=== PATIENT | male | born 1985 | race Caucasian/White ===

== ENCOUNTER 2016-03-09 15:58 | Emergency (ER) | payer MEDICAID, OTHER ==
[~2016-03-09] VITALS: Ht 195.6 cm; Wt 110.7 kg
[~2016-03-09 15:58] MED LIST: GLYB1.257 PO; METF-312; RISP3TAB24; SERT20CO PO
[2016-03-09] MEDS ORDERED: SODIUM CHLORIDE 0.9% 1,000 ML IV ONE (16:30)
[2016-03-09 16:53] LABS: Basophils # (auto) 0 uL; Basophils % (auto) 0.6 % (0.0-2.0); Eosinophils # (auto) 0.1 uL; Eosinophils % (auto) 2.4 % (0.0-7.0); Hematocrit 43.2 % (41.0-53.0); Hemoglobin 14.1 g/dL (13.5-17.5); Lymphocytes % (auto) 33.8 % (10.0-50.0); Mean Corpuscular Hemoglobin 28.9 pg (28.0-32.0); Mean Corpuscular Hgb Conc. 32.7 g/dL (32.0-36.0); Mean Corpuscular Volume 88.3 fL (80.0-100.0); Mean Platelet Volume 8.1 fL (7.4-10.4); Monocytes # (auto) 0.5 uL; Monocytes % (auto) 9.1 % (0.0-12.0); Neutrophils # (auto) 3.2 uL; Neutrophils % (auto) 54.1 % (37.0-80.0); Platelet Count (auto) 245 10^3/uL (140-450); Red Cell Distribution Width 12.9 % (11.6-16.0); White Blood Cell 5.9 10^3/uL (4.4-10.8)
[2016-03-09 17:00] VITALS: BP 123/92
[2016-03-09 17:15] LABS: Albumin 3.4 g/dL (3.4-5.0); Anion Gap 11 (5-15); Aspartate Aminotransferase 8 U/L (15-37); BUN/Creatinine Ratio 17.6; Blood Urea Nitrogen 16 mg/dL (7-18); Carbon Dioxide 25 mmol/L (21-32); Chloride 101 mmol/L (98-107); GFR African American 125 mL/min; GFR Non-African American 103 mL/min; Glucose 284 mg/dL (74-106); Magnesium 1.8 mg/dL (1.6-2.6); Potassium 4.1 mmol/L (3.5-5.1); Sodium 137 mmol/L (136-145)
[2016-03-09 17:18] LABS: Alkaline Phosphatase 65 U/L (45-117); Bilirubin, Total 0.4 mg/dL (0.2-1.0); Total Protein 6.6 g/dL (6.4-8.2)
== END 2016-03-09 17:57 | disposition home or self-care (01) ==
LOC: EDBD 15:58 → ER 16:03
DX: E11.65 Type 2 diabetes mellitus with hyperglycemia (principal); F12.10 Cannabis abuse, uncomplicated; Z79.899 Other long term (current) drug therapy
CPT/HCPCS: 36415; 80053; 80320; 82962; 83735; 85025; 93005; 94761; 96360; 99285; J7030

== ENCOUNTER 2016-04-12 12:23 | Emergency (ER) | payer MEDICAID ==
[~2016-04-12] VITALS: Ht 193 cm; Wt 105.2 kg
[2016-04-12 12:37] VITALS: BP 125/90
== END 2016-04-12 15:07 | disposition left against medical advice (07) ==
LOC: EDBD 12:23 → ER 12:30
DX: R53.1 Weakness (principal); Z53.21 Procedure and treatment not carried out due to patient leaving prior to being seen by health care provider

== ENCOUNTER 2016-10-13 22:15 | Emergency (ER) | payer MEDICAID ==
[~2016-10-13] VITALS: Ht 195.6 cm; Wt 104.3 kg
[~2016-10-13 22:15] MED LIST changes: -METF-312; +METF-370
[2016-10-13 22:55] LABS: Basophils # (auto) 0.1 uL; Basophils % (auto) 1.6 % (0.0-2.0); CONDITION Y; Eosinophils # (auto) 0.3 uL; Eosinophils % (auto) 3.6 % (0.0-7.0); Hematocrit 45.8 % (41.0-53.0); Hemoglobin 15.9 g/dL (13.5-17.5); Lymphocytes % (auto) 40.3 % (10.0-50.0); Mean Corpuscular Hemoglobin 30.8 pg (28.0-32.0); Mean Corpuscular Hgb Conc. 34.7 g/dL (32.0-36.0); Mean Corpuscular Volume 88.8 fL (80.0-100.0); Mean Platelet Volume 8.5 fL (7.4-10.4); Monocytes # (auto) 0.7 uL; Monocytes % (auto) 9.6 % (0.0-12.0); Neutrophils # (auto) 3.3 uL; Neutrophils % (auto) 44.9 % (37.0-80.0); Platelet Count (auto) 239 10^3/uL (140-450); Red Cell Distribution Width 12.5 % (11.6-16.0); White Blood Cell 7.4 10^3/uL (4.4-10.8)
[2016-10-13 23:07] LABS: Urine Bilirubin Negative (Negative); Urine Blood Negative /uL (Negative); Urine Glucose 4+ mg/dL (Normal); Urine Ketone Negative (Negative); Urine Nitrite Negative (Negative); Urine RBC <1 /hpf (0 - 3); Urine Urobilinogen Normal (Negative)
[2016-10-13 23:08] LABS: Urine Color Straw (Yellow)
[2016-10-13 23:13] LABS: Albumin 3.6 g/dL (3.4-5.0); BUN/Creatinine Ratio 13.4; Bilirubin, Total 0.2 mg/dL (0.2-1.0); Calcium 9.3 mg/dL (8.5-10.1); Magnesium 2.2 mg/dL (1.6-2.6); Potassium 4.6 mmol/L (3.5-5.1); Total Protein 8.3 g/dL (6.4-8.2)
[2016-10-14] MEDS ORDERED: InsuLIN REG 1unit/0.01ml Soln (100units/ml) IV ONE ×2 (01:00→08:00)
[2016-10-14] MEDS ORDERED: SODIUM CHLORIDE 0.9% 2,000 ML IV ONE (01:00)
[2016-10-14 01:34] LABS: Allen Test Modified; Base Excess 0.4 mmol/L (-2.0-2.0); Blood 02Sat 94.4 % (96-100); Blood COHb 0.8 % (0.5-1.5); Blood MetHb 0.2 % (0.0-1.5); HCO3 25.8 mmol/L (22-26.0); HHb 5.5 % (0.0-5.0); MODE ROOM AIR; O2Hb 93.5 % (94.0-97.0); PCO2 44.1 mmHg (35.0-45.0); PCO2(T) 44.1 mmHg (35.0-45.0); PO2 72.8 mmHg (80.0-100.0); PO2(T) 72.8 mmHg (80.0-100.0); Sample Type Arterial; pH 7.385 (7.350-7.450)
[2016-10-14 06:35] VITALS: BP 136/82
[2016-10-14] MEDS ORDERED: SODIUM CHLORIDE 0.9% 1,000 ML IV ONE (07:55)
== END 2016-10-14 08:31 | disposition home or self-care (01) ==
LOC: ER 22:15
DX: E11.65 Type 2 diabetes mellitus with hyperglycemia (principal); Z79.4 Long term (current) use of insulin
CPT/HCPCS: 36415; 36600; 80053; 81001; 82010; 82805; 82962; 83605; 83735; 85025; 96361; 96374; 96376; 99284; J1815; J7030

== ENCOUNTER 2016-12-23 10:46 | Emergency (ER) | payer MEDICAID ==
[~2016-12-23] VITALS: Ht 198.1 cm; Wt 99.8 kg
[2016-12-23 11:37] LABS: Basophils # (auto) 0.1 uL; Basophils % (auto) 1.2 % (0.0-2.0); Eosinophils # (auto) 0.2 uL; Eosinophils % (auto) 2.3 % (0.0-7.0); Hematocrit 45.5 % (41.0-53.0); Hemoglobin 15.8 g/dL (13.5-17.5); Mean Corpuscular Hemoglobin 30.7 pg (28.0-32.0); Mean Corpuscular Hgb Conc. 34.8 g/dL (32.0-36.0); Mean Corpuscular Volume 88.2 fL (80.0-100.0); Mean Platelet Volume 7.8 fL (6.9-10.8); Monocytes # (auto) 0.9 uL; Monocytes % (auto) 10.7 % (0.0-12.0); Neutrophils # (auto) 4.9 uL; Neutrophils % (auto) 60.8 % (37.0-80.0); Nucleated Red Blood Cells % 0.1 %; Platelet Count (auto) 229 10^3/uL (140-450); Red Cell Distribution Width 12.5 % (11.8-14.3)
[2016-12-23 11:58] LABS: Albumin 3.6 g/dL (3.4-5.0); Alkaline Phosphatase 84 U/L (45-117); Anion Gap 11 (5-15); Aspartate Aminotransferase 11 U/L (15-37); BUN/Creatinine Ratio 12.8; Bilirubin, Total 0.4 mg/dL (0.2-1.0); Blood Urea Nitrogen 12 mg/dL (7-18); Carbon Dioxide 26 mmol/L (21-32); Chloride 96 mmol/L (98-107); GFR African American 120 mL/min; GFR Non-African American 99 mL/min; Glucose 306 mg/dL (74-106); Potassium 3.8 mmol/L (3.5-5.1); Sodium 133 mmol/L (136-145); Total Protein 7.9 g/dL (6.4-8.2)
[2016-12-23] MEDS ORDERED: SODIUM CHLORIDE 0.9% 1,000 ML IVB ONE (12:14)
[2016-12-23 14:16] LABS: Urine RBC None Seen /hpf (0 - 3)
[2016-12-23 15:27] LABS: Urine Bilirubin Negative (Negative); Urine Blood Negative /uL (Negative); Urine Color Yellow (Yellow); Urine Glucose 4+ mg/dL (Normal); Urine Ketone TRACE (Negative); Urine Nitrite Negative (Negative); Urine Squamous Epithelial Cell FEW /hpf (<5); Urine Urobilinogen Normal (Negative)
[2016-12-23 16:58] VITALS: BP 135/83
== END 2016-12-23 17:06 | disposition home or self-care (01) ==
LOC: EDBD 10:46 → ER 10:51
DX: R07.89 Other chest pain (principal); E11.65 Type 2 diabetes mellitus with hyperglycemia; F15.10 Other stimulant abuse, uncomplicated; F12.10 Cannabis abuse, uncomplicated; F20.9 Schizophrenia, unspecified; F31.9 Bipolar disorder, unspecified; Z79.899 Other long term (current) drug therapy
CPT/HCPCS: 36415; 71020; 80053; 80307; 81001; 82962; 83735; 84443; 84484; 85025; 93005; 96360; 99285; J7030

== ENCOUNTER 2017-06-07 20:42 | Emergency (ER) | payer MEDICAID ==
[~2017-06-07] VITALS: Ht 198.1 cm; Wt 104.0 kg
[~2017-06-07 20:42] MED LIST changes: -SERT20CO PO; +SERT20CO7 PO
[2017-06-07 21:03] VITALS: BP 130/84
[2017-06-07 21:42] LABS: Basophils # (auto) 0.1 uL; Basophils % (auto) 0.9 % (0.0-2.0); Eosinophils # (auto) 0.2 uL; Eosinophils % (auto) 2.7 % (0.0-7.0); Hematocrit 44.9 % (41.0-53.0); Hemoglobin 15.5 g/dL (13.5-17.5); Lymphocytes # (auto) 2.5 uL; Lymphocytes % (auto) 37.6 % (10.0-50.0); Mean Corpuscular Hemoglobin 30.5 pg (28.0-32.0); Mean Corpuscular Hgb Conc. 34.6 g/dL (32.0-36.0); Mean Corpuscular Volume 88.3 fL (80.0-100.0); Monocytes # (auto) 0.6 uL; Monocytes % (auto) 8.3 % (0.0-12.0); Neutrophils # (auto) 3.4 uL; Neutrophils % (auto) 50.5 % (37.0-80.0); Nucleated Red Blood Cells % 0.2 %; Platelet Count (auto) 214 10^3/uL (140-450); Red Blood Cells 5.08 10^6/uL (4.5-5.90); Red Cell Distribution Width 12.5 % (11.8-14.3); White Blood Cell 6.8 10^3/uL (4.4-10.8)
[2017-06-07 21:57] LABS: Alanine Aminotransferase 20 U/L (16-61); Alkaline Phosphatase 63 U/L (45-117); Anion Gap 6 (5-15); Aspartate Aminotransferase 9 U/L (15-37); BUN/Creatinine Ratio 13.8; Bilirubin, Total 0.4 mg/dL (0.2-1.0); Blood Urea Nitrogen 13 mg/dL (7-18); Calcium 9.2 mg/dL (8.5-10.1); Carbon Dioxide 28 mmol/L (21-32); Chloride 104 mmol/L (98-107); GFR African American 119 mL/min; GFR Non-African American 98 mL/min; Glucose 193 mg/dL (74-106); Potassium 3.6 mmol/L (3.5-5.1); Sodium 138 mmol/L (136-145); Total Protein 7.5 g/dL (6.4-8.2)
[2017-06-07 22:01] LABS: Urine Bacteria NONE SEEN /hpf (None Seen); Urine Blood Negative /uL (Negative); Urine Specific Gravity 1.025 (1.001-1.035); Urine WBC 1 /hpf (0 - 3)
[2017-06-07 22:07] LABS: Alcohol, Urine < 3.0 mg/dL (0-5); Amphetamine Screen, Urine POSITIVE (NEGATIVE); Barbiturate Scree,Urine NEGATIVE (NEGATIVE); Benzodiazephine Screen, Urine NEGATIVE (NEGATIVE); Cannabinoid Screen, Urine POSITIVE (NEGATIVE); Cocaine Screen, Urine NEGATIVE (NEGATIVE); Opiate Scree,Urine NEGATIVE (NEGATIVE); Phencyclidine Screen, Urine NEGATIVE (NEGATIVE)
== END 2017-06-08 04:30 | disposition left against medical advice (07) ==
LOC: ER 20:42
DX: I10 Essential (primary) hypertension (principal); Z53.21 Procedure and treatment not carried out due to patient leaving prior to being seen by health care provider
CPT/HCPCS: 36415; 71046; 80053; 80307; 81001; 82962; 84484; 85025; 93005

== ENCOUNTER 2021-04-30 12:53 | Inpatient (IN) | payer MEDICAID ==
[~2021-04-30] VITALS: Ht 188 cm; Wt 94.5 kg
[2021-04-30] MEDS ORDERED: LACTATED RINGER'S 1,000 ML IV ONE ×2 (13:30→15:45)
[2021-04-30 14:48] LABS: Urine Bacteria NONE SEEN /hpf (None Seen); Urine Blood Negative /uL (Negative); Urine Specific Gravity 1.041 (1.001-1.035); Urine WBC <1 /hpf (0 - 3)
[2021-04-30 15:13] LABS: Basophils # (auto) 0 10 ^3/uL (0-0.2); Basophils % (auto) 0.8 % (0.0-2.0); Eosinophils # (auto) 0.1 10 ^3/uL (0-0.8); Eosinophils % (auto) 1.7 % (0.0-7.0); Hematocrit 36.2 % (41.0-53.0); Hemoglobin 12.8 g/dL (13.5-17.5); Lymphocytes # (auto) 1.3 10 ^3/uL (0.4-5.4); Lymphocytes % (auto) 24.3 % (10.0-50.0); Mean Corpuscular Hemoglobin 29.7 pg (28.0-32.0); Mean Corpuscular Hgb Conc. 35.3 g/dL (32.0-36.0); Monocytes # (auto) 0.6 10 ^3/uL (0-1.3); Monocytes % (auto) 10.9 % (0.0-12.0); Neutrophils # (auto) 3.3 10 ^3/uL (1.6-8.6); Neutrophils % (auto) 62.3 % (37.0-80.0); Nucleated Red Blood Cells % 0.1 %; Red Cell Distribution Width 12.7 % (11.8-14.3); White Blood Cell 5.3 10^3/uL (4.4-10.8)
[2021-04-30 15:20] LABS: Albumin 2.9 g/dL (3.4-5.0); BUN/Creatinine Ratio 11.8; Calcium 8.4 mg/dL (8.5-10.1); Potassium 3.8 mmol/L (3.5-5.1)
[2021-04-30 15:21] LABS: Magnesium 1.8 mg/dL (1.6-2.6)
[2021-04-30] MEDS ORDERED: AMPICILLIN & SULBACTAM SODIUM 3 GM in SODIUM CHL 0.9% 100 ML IV ONE (15:45)
[2021-04-30] MEDS ORDERED: PIPERACILLIN-TAZOB 3.375GM 100 ML IV ONE (15:45)
[2021-04-30] MEDS ORDERED: VANCOMYCIN 1GM/250ML 250 ML IV ONE (15:45)
[2021-04-30] MEDS ORDERED: NITROGLYCERIN 0.4 MG SL TAB SL PRN (16:00)
[2021-04-30] MEDS ORDERED: ACETAMINOPHEN 325 MG TAB PO PRN (16:00)
[2021-04-30] MEDS ORDERED: MORPHINE SULFATE 4 MG/ML SYR/VIAL IV PRN (16:00)
[2021-04-30] MEDS ORDERED: HYDROcodone-ACET 5/325MG TAB PO PRN (16:00)
[2021-04-30] MEDS ORDERED: MORPHINE SULFATE INJECTION 2 MG/ML SYRG IV PRN (16:00)
[2021-04-30 16:15] LABS: Bilirubin, Total 0.4 mg/dL (0.2-1.0)
[2021-04-30 16:33] LABS: CRP High Sensitivity 2.98 mg/dL (< 0.3)
[2021-04-30] MEDS ORDERED: DEXTROSE (50%) 50ML SYRG IV PRN (18:15)
[2021-04-30] MEDS: ACCU-CHEK COMFORT CURVE STRIP VI SCH ×2 (20:15→23:39)
[2021-04-30] MEDS: InsuLIN REG 1unit/0.01ml Soln (100units/ml) SC SCH ×2 (20:23→23:49)
[2021-04-30 20:50] VITALS: BP 115/70
[2021-04-30] MEDS ORDERED: INFLUENZA QUAD 2021-2022 0.5 ML SYRG IM ONE (21:30)
[2021-04-30] MEDS ORDERED: PNEUMOCOCCAL VACC POLYS 25 MCG/0.5 ML VIAL IM ONE (21:30)
[2021-04-30 22:00] VITALS: BP 111/74
[2021-05-01] MEDS: PIPERACILLIN-TAZOB 3.375GM 100 ML IV SCH ×2 (01:33→09:44)
[2021-05-01] MEDS: InsuLIN REG 1unit/0.01ml Soln (100units/ml) SC SCH ×2 (04:00→08:00)
[2021-05-01] MEDS: ACCU-CHEK COMFORT CURVE STRIP VI SCH ×2 (04:00→08:00)
[2021-05-01 05:00] VITALS: BP 122/80
[2021-05-01 06:40] LABS: Basophils # (auto) 0 10 ^3/uL (0-0.2); Basophils % (auto) 0.6 % (0.0-2.0); Eosinophils # (auto) 0.2 10 ^3/uL (0-0.8); Hematocrit 37.2 % (41.0-53.0); Hemoglobin 13.4 g/dL (13.5-17.5); Lymphocytes # (auto) 2.5 10 ^3/uL (0.4-5.4); Lymphocytes % (auto) 38.8 % (10.0-50.0); Mean Corpuscular Hemoglobin 30.2 pg (28.0-32.0); Mean Corpuscular Volume 83.9 fL (80.0-100.0); Monocytes # (auto) 0.6 10 ^3/uL (0-1.3); Monocytes % (auto) 9.3 % (0.0-12.0); Neutrophils # (auto) 3.1 10 ^3/uL (1.6-8.6); Neutrophils % (auto) 48.3 % (37.0-80.0); Nucleated Red Blood Cells % 0.1 %; Red Blood Cells 4.44 10^6/uL (4.5-5.90); Red Cell Distribution Width 12.5 % (11.8-14.3); White Blood Cell 6.3 10^3/uL (4.4-10.8)
[2021-05-01 07:00] LABS: Potassium 3.8 mmol/L (3.5-5.1)
[2021-05-01 07:11] LABS: Albumin 2.7 g/dL (3.4-5.0); BUN/Creatinine Ratio 12.5; Bilirubin, Total 0.4 mg/dL (0.2-1.0); Calcium 8.7 mg/dL (8.5-10.1); Total Protein 6.9 g/dL (6.4-8.2)
[2021-05-01 08:00] VITALS: BP 112/78
[2021-05-01 09:00] VITALS: BP 112/78
[2021-05-01] MEDS ORDERED: PNEUMOCOCCAL VACC POLYS 25 MCG/0.5 ML VIAL IM ONE (10:00)
[2021-05-01] MEDS ORDERED: ENOXAPARIN SOD 40 MG/0.4 ML SYRINGE SC SCH (10:00)
[2021-05-01] MEDS ORDERED: INFLUENZA QUAD 2021-2022 0.5 ML SYRG IM ONE (10:00)
== END 2021-05-01 12:30 | disposition left against medical advice (07) | DRG 344 ==
LOC: ER 12:53 → EDBD 12:53 → TELE 15:52 → TELE-EAST 19:40
PROVIDERS: ADMIT Internal Medicine; ATTEND Internal Medicine
DX: E11.69 Type 2 diabetes mellitus with other specified complication (principal); M86.8X7 Other osteomyelitis, ankle and foot; E11.65 Type 2 diabetes mellitus with hyperglycemia; E86.0 Dehydration; L03.031 Cellulitis of right toe; Z53.29 Procedure and treatment not carried out because of patient's decision for other reasons; F20.9 Schizophrenia, unspecified; F31.9 Bipolar disorder, unspecified; Z83.3 Family history of diabetes mellitus; Z79.84 Long term (current) use of oral hypoglycemic drugs
CPT/HCPCS: 36415; 36600; 71046; 73630; 80053; 81001; 82010; 82805; 82962; 83036; 83605; 83735; 83880; 84484; 85025; 85652; 86141; 90686; 93005; 93971; 96361; 96365; 96368; G0378; J1815; J2543

== ENCOUNTER 2021-11-21 01:22 | Inpatient (IN) | payer MEDICAID ==
[~2021-11-21] VITALS: Ht 198.1 cm; Wt 96.2 kg
[~2021-11-21 01:22] MED LIST changes: -GLYB1.257 PO; -RISP3TAB24; -SERT20CO7 PO
[2021-11-21] MEDS ORDERED: PIPERACILLIN-TAZOB 3.375GM 100 ML IV ONE (08:00)
[2021-11-21] MEDS ORDERED: ONDANSETRON HCL 4 MG/2 ML VIAL IV PRN (09:15)
[2021-11-21] MEDS ORDERED: NITROGLYCERIN 0.4 MG SL TAB SL PRN (09:15)
[2021-11-21] MEDS ORDERED: HYDROcodone-ACET 5/325MG TAB PO PRN (09:15)
[2021-11-21] MEDS ORDERED: DOCUSATE SOD 100 MG CAP PO PRN (09:15)
[2021-11-21] MEDS ORDERED: ACETAMINOPHEN 325 MG TAB PO PRN (09:15)
[2021-11-21] MEDS ORDERED: VANCOMYCIN PER PHARMACY 0 MG IV SCH (09:15)
[2021-11-21] MEDS ORDERED: MORPHINE SULFATE INJ 2 MG/ml SYRG IV PRN ×2 (09:15)
[2021-11-21] MEDS ORDERED: TEMAZEPAM 15 MG CAP PO PRN (09:15)
[2021-11-21] MEDS: ASCORBIC ACID 500 MG TAB PO SCH ×2 (10:10→22:45)
[2021-11-21] MEDS: ZINC SULFATE 220mg CAP or TAB PO SCH (10:10)
[2021-11-21] MEDS: ENOXAPARIN SOD 40 MG/0.4 ML SYRINGE SC SCH (10:10)
[2021-11-21] MEDS: MULTIPLE VITAMIN TAB PO SCH (10:10)
[2021-11-21] MEDS ORDERED: VANCOMYCIN 1GM/250ML 250 ML IV ONE ×2 (10:45→15:00)
[2021-11-21 11:29] LABS: Basophils # (auto) 0 10 ^3/uL (0-0.2); Basophils % (auto) 0.4 % (0.0-2.0); Eosinophils # (auto) 0.2 10 ^3/uL (0-0.8); Eosinophils % (auto) 3.6 % (0.0-7.0); Hematocrit 32.8 % (41.0-53.0); Lymphocytes # (auto) 1.3 10 ^3/uL (0.4-5.4); Lymphocytes % (auto) 26.8 % (10.0-50.0); Mean Corpuscular Hemoglobin 28.9 pg (28.0-32.0); Mean Corpuscular Hgb Conc. 33.6 g/dL (32.0-36.0); Mean Corpuscular Volume 86.2 fL (80.0-100.0); Monocytes # (auto) 0.6 10 ^3/uL (0-1.3); Monocytes % (auto) 11.4 % (0.0-12.0); Neutrophils # (auto) 2.8 10 ^3/uL (1.6-8.6); Neutrophils % (auto) 57.8 % (37.0-80.0); Red Cell Distribution Width 12.2 % (11.8-14.3); White Blood Cell 4.8 10^3/uL (4.4-10.8)
[2021-11-21 11:34] LABS: Potassium 3.8 mmol/L (3.5-5.1)
[2021-11-21 11:47] LABS: Albumin 2.9 g/dL (3.4-5.0); BUN/Creatinine Ratio 12.5; Bilirubin, Total 0.3 mg/dL (0.2-1.0); Calcium 8.5 mg/dL (8.5-10.1); Phosphorus 2.8 mg/dL (2.5-4.90); Total Protein 7.6 g/dL (6.4-8.2)
[2021-11-21 22:00] VITALS: BP 126/79
[2021-11-21] MEDS: GABAPENTIN 300 MG CAP PO SCH (22:45)
[2021-11-21 23:17] VITALS: BP 128/83
[2021-11-22] MEDS: VANCOMYCIN 1GM/250ML 250 ML IV SCH ×2 (03:12→14:55)
[2021-11-22 05:00] VITALS: BP 120/84
[2021-11-22] MEDS: GABAPENTIN 300 MG CAP PO SCH ×2 (05:49→13:34)
[2021-11-22 06:29] LABS: Calcium 8.2 mg/dL (8.5-10.1); Potassium 4.4 mmol/L (3.5-5.1)
[2021-11-22 06:35] LABS: Albumin 2.6 g/dL (3.4-5.0); BUN/Creatinine Ratio 9.9; Bilirubin, Total 0.3 mg/dL (0.2-1.0); Total Protein 7.5 g/dL (6.4-8.2)
[2021-11-22 06:48] LABS: Basophils # (auto) 0 10 ^3/uL (0-0.2); Basophils % (auto) 0.7 % (0.0-2.0); Eosinophils # (auto) 0.2 10 ^3/uL (0-0.8); Eosinophils % (auto) 4.4 % (0.0-7.0); Hematocrit 33.6 % (41.0-53.0); Hemoglobin 11.6 g/dL (13.5-17.5); Lymphocytes # (auto) 1.8 10 ^3/uL (0.4-5.4); Lymphocytes % (auto) 44.1 % (10.0-50.0); Mean Corpuscular Hemoglobin 29.7 pg (28.0-32.0); Mean Corpuscular Hgb Conc. 34.5 g/dL (32.0-36.0); Mean Corpuscular Volume 86.1 fL (80.0-100.0); Monocytes # (auto) 0.6 10 ^3/uL (0-1.3); Monocytes % (auto) 14.7 % (0.0-12.0); Neutrophils # (auto) 1.5 10 ^3/uL (1.6-8.6); Neutrophils % (auto) 36.1 % (37.0-80.0); Red Cell Distribution Width 12.7 % (11.8-14.3); White Blood Cell 4.1 10^3/uL (4.4-10.8)
[2021-11-22 08:52] VITALS: BP 124/74
[2021-11-22] MEDS: MULTIPLE VITAMIN TAB PO SCH (09:33)
[2021-11-22] MEDS: ENOXAPARIN SOD 40 MG/0.4 ML SYRINGE SC SCH (09:33)
[2021-11-22] MEDS: ASCORBIC ACID 500 MG TAB PO SCH (09:33)
[2021-11-22] MEDS: ZINC SULFATE 220mg CAP or TAB PO SCH (09:33)
[2021-11-22 12:30] VITALS: BP 136/80
== END 2021-11-22 18:37 | disposition left against medical advice (07) | DRG 342 ==
LOC: EDBD 01:22 → ER 01:25 → OVERFLOW 09:11 → EAST 20:52
PROVIDERS: ADMIT Nurse Practitioner; ATTEND Nurse Practitioner
DX: S92.401A Displaced unspecified fracture of right great toe, initial encounter for closed fracture (principal); M86.8X7 Other osteomyelitis, ankle and foot; E11.65 Type 2 diabetes mellitus with hyperglycemia; F20.9 Schizophrenia, unspecified; L03.031 Cellulitis of right toe; Z83.3 Family history of diabetes mellitus; W18.39XA Other fall on same level, initial encounter; Y93.89 Activity, other specified; Y92.89 Other specified places as the place of occurrence of the external cause; Y99.8 Other external cause status
CPT/HCPCS: 36415; 73630; 73700; 80053; 80069; 82962; 83605; 85025; 87040; 87205; 87426; 96365; 96367; 96372; G0378; J2543

== ENCOUNTER 2023-04-29 22:47 | Emergency (ER) | payer MEDICAID ==
[~2023-04-29] VITALS: Ht 200.7 cm; Wt 100.0 kg
[~2023-04-29 22:47] MED LIST changes: -METF-370; +METF-370 PO
[2023-04-29] MEDS: SODIUM CHLORIDE 0.9% 1,000 ML IV ONE (23:05)
[2023-04-29] MEDS: METOCLOPRAMIDE HCL 5MG/ml INJ 2ml VIAL IV ONE (23:05)
[2023-04-29 23:18] VITALS: BP 128/90; PULSE 96; RESP 12; O2SAT 94
[2023-04-29 23:29] LABS: Basophils # (auto) 0 10 ^3/uL (0-0.2); Basophils % (auto) 0.6 % (0.0-2.0); Eosinophils # (auto) 0.2 10 ^3/uL (0-0.8); Eosinophils % (auto) 3.2 % (0.0-7.0); Hematocrit 43.4 % (41.0-53.0); Hemoglobin 14.5 g/dL (13.5-17.5); Lymphocytes # (auto) 2.3 10 ^3/uL (0.4-5.4); Lymphocytes % (auto) 33.4 % (10.0-50.0); Mean Corpuscular Hgb Conc. 33.4 g/dL (32.0-36.0); Mean Corpuscular Volume 86.8 fL (80.0-100.0); Monocytes # (auto) 0.6 10 ^3/uL (0-1.3); Monocytes % (auto) 9.1 % (0.0-12.0); Neutrophils # (auto) 3.7 10 ^3/uL (1.6-8.6); Neutrophils % (auto) 53.7 % (37.0-80.0); Red Blood Cells 4.99 10^6/uL (4.5-5.90); Red Cell Distribution Width 13.8 % (11.8-14.3); White Blood Cell 6.8 10^3/uL (4.4-10.8)
[2023-04-29 23:46] LABS: Alanine Aminotransferase 16 U/L (7-40); Albumin 4.3 g/dL (3.2-4.8); Alkaline Phosphatase 114 U/L (46-116); Anion Gap 4 (5-15); Aspartate Aminotransferase 9 U/L (13-40); BUN/Creatinine Ratio 8.8 (10.0-20.0); Bilirubin, Total 0.3 mg/dL (0.2-1.0); Blood Urea Nitrogen 10 mg/dL (9-23); Calcium 10.2 mg/dL (8.7-10.4); Carbon Dioxide 31 mmol/L (20-30); Chloride 98 mmol/L (98-107); Glucose 392 mg/dL (74-106); Potassium 4.1 mmol/L (3.5-5.1); Sodium 133 mmol/L (136-145); Total Protein 8.4 g/dL (5.7-8.2)
[2023-04-30] VITALS: PULSE 94
== END 2023-04-30 01:15 | disposition left against medical advice (07) ==
LOC: EDBD 22:47 → ER 22:47
DX: E11.65 Type 2 diabetes mellitus with hyperglycemia (principal); F15.10 Other stimulant abuse, uncomplicated; Z98.890 Other specified postprocedural states; Z79.899 Other long term (current) drug therapy
CPT/HCPCS: 36415; 36600; 70450; 71045; 80053; 82010; 82805; 83605; 83880; 84484; 85025; 85379; 87040; 93005; 96361; 96374; 99285; J2765; J7030

== ENCOUNTER 2023-05-10 00:40 | Inpatient (IN) | payer MEDICAID ==
[~2023-05-10] VITALS: Ht 200.7 cm; Wt 103.0 kg
[2023-05-10 01:18] VITALS: PULSE 108; RESP 12; O2SAT 97
[2023-05-10] MEDS ORDERED: VANCOMYCIN HCL 1000 MG VL IR ONE (01:30)
[2023-05-10] MEDS: MORPHINE SULFATE 4 MG/ML SYR/VIAL IV ONE (01:47)
[2023-05-10] MEDS: ONDANSETRON HCL 4 MG/2 ML VIAL IV ONE (01:47)
[2023-05-10] MEDS: SODIUM CHLORIDE 0.9% 1,000 ML IV ONE ×3 (01:47→03:12)
[2023-05-10 01:52] LABS: Urine Bacteria None Seen /hpf (None Seen)
[2023-05-10] MEDS ORDERED: VANCOMYCIN PER PHARMACY 0 MG IV SCH ×2 (02:00→02:45)
[2023-05-10] MEDS: CLINDAMYCIN 900MG IV 50 ML IV ONE (02:00)
[2023-05-10 02:01] LABS: Basophils # (auto) 0 10 ^3/uL (0-0.2); Basophils % (auto) 0.3 % (0.0-2.0); Eosinophils # (auto) 0.1 10 ^3/uL (0-0.8); Eosinophils % (auto) 1.2 % (0.0-7.0); Hematocrit 32.4 % (41.0-53.0); Hemoglobin 11.1 g/dL (13.5-17.5); Lymphocytes # (auto) 1.1 10 ^3/uL (0.4-5.4); Lymphocytes % (auto) 14.6 % (10.0-50.0); Mean Corpuscular Hemoglobin 29.8 pg (28.0-32.0); Mean Corpuscular Hgb Conc. 34.4 g/dL (32.0-36.0); Mean Corpuscular Volume 86.6 fL (80.0-100.0); Monocytes # (auto) 0.9 10 ^3/uL (0-1.3); Monocytes % (auto) 12.3 % (0.0-12.0); Neutrophils # (auto) 5.5 10 ^3/uL (1.6-8.6); Neutrophils % (auto) 71.6 % (37.0-80.0); Red Blood Cells 3.74 10^6/uL (4.5-5.90); White Blood Cell 7.6 10^3/uL (4.4-10.8)
[2023-05-10] MEDS ORDERED: VANCOMYCIN 1GM/200ML 200 ML IV ONE (02:15)
[2023-05-10 02:25] LABS: Alanine Aminotransferase 11 U/L (7-40); Albumin 3.4 g/dL (3.2-4.8); Alkaline Phosphatase 103 U/L (46-116); Anion Gap 5 (5-15); Aspartate Aminotransferase < 8 U/L (13-40); BUN/Creatinine Ratio 11.6 (10.0-20.0); Bilirubin, Total 0.4 mg/dL (0.2-1.0); Blood Urea Nitrogen 13 mg/dL (9-23); Calcium 9.1 mg/dL (8.7-10.4); Carbon Dioxide 27 mmol/L (20-30); Chloride 101 mmol/L (98-107); Potassium 4.1 mmol/L (3.5-5.1); Sodium 133 mmol/L (136-145); Total Protein 6.6 g/dL (5.7-8.2)
[2023-05-10 02:31] LABS: Glucose 416 mg/dL (74-106)
[2023-05-10 02:41] LABS: Urine Blood Negative /uL (Negative); Urine Clarity Clear (Clear); Urine Color Light-Yellow (Yellow); Urine Protein, UAD Negative (Negative); Urine Specific Gravity 1.041 (1.001-1.035); Urine Urobilinogen Normal (Negative); Urine WBC <1 /hpf (0 - 3); Urine pH 5.5 (5.0-9.0)
[2023-05-10] MEDS ORDERED: InsuLIN REG 1unit/0.01ml Soln (100units/ml) IV ONE (02:45)
[2023-05-10] MEDS ORDERED: SODIUM CHLORIDE 0.9% 1,000 ML IV ONE (02:45)
[2023-05-10] MEDS: InsuLIN REG 1unit/0.01ml Soln (100units/ml) IV ONE ×2 (02:47→03:13)
[2023-05-10] MEDS: PIPERACILLIN-TAZOB 3.375GM 100 ML IV ONE ×2 (03:13→04:05)
[2023-05-10 04:10] LABS: Amphetamine Screen, Urine Pos (NEGATIVE); Barbiturate Scree,Urine Neg (NEGATIVE); Benzodiazephine Screen, Urine Neg (NEGATIVE); Cannabinoid Screen, Urine Neg (NEGATIVE); Cocaine Screen, Urine Neg (NEGATIVE); Opiate Scree,Urine Neg (NEGATIVE); Phencyclidine Screen, Urine Neg (NEGATIVE)
[2023-05-10] MEDS ORDERED: ONDANSETRON HCL 4 MG/2 ML VIAL IV PRN (04:45)
[2023-05-10] MEDS ORDERED: HYDROcodone-ACET 5/325MG TAB PO PRN (04:45)
[2023-05-10] MEDS ORDERED: DEXTROSE (50%) 50ML SYRG IV PRN (04:45)
[2023-05-10] MEDS: VANCOMYCIN 1GM/200ML 200 ML IV ONE (05:30)
[2023-05-10 07:56] VITALS: PULSE 90; RESP 14; O2SAT 95
[2023-05-10] MEDS: ACCU-CHEK COMFORT CURVE STRIP VI SCH (08:35)
[2023-05-10] MEDS: InsuLIN REG 1unit/0.01ml Soln (100units/ml) SC SCH (08:37)
[2023-05-10] MEDS: cefTRIAXone 1GM/50ML D5W 50 ML IV SCH (09:11)
[2023-05-10] MEDS: lamoTRIgine 25 MG TAB PO SCH (10:13)
[2023-05-10] MEDS: CLINDAMYCIN 600MG IV 50 ML IV SCH (10:19)
[2023-05-10 13:00] VITALS: BP 109/71; PULSE 91; RESP 16; TEMP 98.3; O2SAT 98
[2023-05-10] MEDS: VANCOMYCIN 1GM/200ML 200 ML IV SCH (13:07)
[2023-05-10] MEDS ORDERED: ESCI1TAB36 PO (14:05)
[2023-05-10] MEDS ORDERED: LORazepam 2MG/ML-1ML VIAL IV PRN (14:15)
[2023-05-10 14:18] LABS: Hepatitis B Surface Antigen Negative (Negative)
[2023-05-10 14:33] LABS: Hepatitis C Antibody Negative (Negative)
[2023-05-10] MEDS ORDERED: ARIP10TA29 PO (15:41)
[2023-05-10 17:00] VITALS: BP 108/59; PULSE 87; RESP 16; TEMP 98.1; O2SAT 97
[2023-05-10] MEDS ORDERED: ATOR10TA PO (17:57)
[2023-05-10 20:00] VITALS: BP 138/82; PULSE 88; RESP 16; TEMP 100.8
[2023-05-10 21:00] VITALS: BP 139/72; PULSE 88; RESP 16; TEMP 100.8; O2SAT 94
[2023-05-10] MEDS: ACETAMINOPHEN 325 MG TAB PO PRN (22:27)
[2023-05-11 04:09] LABS: Basophils # (auto) 0 10 ^3/uL (0-0.2); Basophils % (auto) 0.7 % (0.0-2.0); Eosinophils # (auto) 0.2 10 ^3/uL (0-0.8); Eosinophils % (auto) 2.4 % (0.0-7.0); Hematocrit 33.9 % (41.0-53.0); Hemoglobin 11.1 g/dL (13.5-17.5); Lymphocytes # (auto) 1.6 10 ^3/uL (0.4-5.4); Lymphocytes % (auto) 21.5 % (10.0-50.0); Mean Corpuscular Hemoglobin 28.1 pg (28.0-32.0); Mean Corpuscular Hgb Conc. 32.7 g/dL (32.0-36.0); Mean Corpuscular Volume 86.1 fL (80.0-100.0); Monocytes % (auto) 13.4 % (0.0-12.0); Neutrophils # (auto) 4.5 10 ^3/uL (1.6-8.6); Nucleated Red Blood Cells % 0.1 %; Red Blood Cells 3.94 10^6/uL (4.5-5.90); Red Cell Distribution Width 12.9 % (11.8-14.3); White Blood Cell 7.3 10^3/uL (4.4-10.8)
[2023-05-11 04:14] LABS: Chloride 102 mmol/L (98-107); Potassium 3.5 mmol/L (3.5-5.1); Sodium 136 mmol/L (136-145)
[2023-05-11 04:15] LABS: Anion Gap 2 (5-15); Carbon Dioxide 32 mmol/L (20-30)
[2023-05-11 04:20] LABS: BUN/Creatinine Ratio 7.5 (10.0-20.0); Blood Urea Nitrogen 6 mg/dL (9-23)
[2023-05-11 05:00] VITALS: BP 126/76; PULSE 91; RESP 19; TEMP 98.7; O2SAT 95
[2023-05-11 05:24] LABS: Glucose 152 mg/dL (74-106)
[2023-05-11 09:00] VITALS: BP 153/80; PULSE 90; RESP 14; TEMP 100.7; O2SAT 94
[2023-05-11] MEDS: LIDOCAINE 2% (LOCAL ANESTH.) PF 5ml SDV IJ ONE (09:00)
[2023-05-11] MEDS: ARIPIPRAZOLE 10 MG PO SCH (09:46)
[2023-05-11] MEDS: VANCOMYCIN 1GM/200ML 200 ML IV SCH (12:19)
[2023-05-11 13:00] VITALS: BP 131/74; PULSE 90; RESP 14; TEMP 98.8; O2SAT 98
[2023-05-11 17:00] VITALS: BP 134/84; PULSE 87; RESP 16; TEMP 100.6; O2SAT 96
[2023-05-11] MEDS ORDERED: MORPHINE SULFATE INJ 2 MG/ml SYRG ONE (17:04)
[2023-05-11 20:00] VITALS: BP 134/82; PULSE 85; RESP 18; TEMP 97.6; O2SAT 94
[2023-05-11 21:00] VITALS: BP 122/76; PULSE 96; RESP 18; TEMP 98; O2SAT 96
[2023-05-12 01:00] VITALS: BP 122/75; PULSE 83; RESP 18; TEMP 98.9; O2SAT 95
[2023-05-12 05:00] VITALS: BP 114/75; PULSE 87; RESP 18; TEMP 98.5; O2SAT 95
== END 2023-05-12 05:45 | disposition left against medical advice (07) | DRG 720 ==
LOC: ER 00:40 → EDBD 00:40 → ER 02:43 → OVERFLOW 04:39 → EAST 04:39
PROVIDERS: ADMIT Nurse Practitioner; ATTEND Nurse Practitioner Acute Care
PROC: 0Y9J0ZZ Drainage of Left Lower Leg, Open Approach (ICD-10-PCS; principal; 2023-05-11)
PROC: 0HTRXZZ Resection of Toe Nail, External Approach (ICD-10-PCS; 2023-05-11)
DX: A41.9 Sepsis, unspecified organism (principal); E11.40 Type 2 diabetes mellitus with diabetic neuropathy, unspecified; L03.116 Cellulitis of left lower limb; L02.612 Cutaneous abscess of left foot; E11.65 Type 2 diabetes mellitus with hyperglycemia; F15.90 Other stimulant use, unspecified, uncomplicated; Z53.29 Procedure and treatment not carried out because of patient's decision for other reasons; F20.9 Schizophrenia, unspecified; L60.0 Ingrowing nail; Z83.3 Family history of diabetes mellitus; Z79.4 Long term (current) use of insulin
CPT/HCPCS: 36415; 73700; 80048; 80053; 80202; 80307; 81001; 82010; 82565; 82962; 83036; 83605; 85025; 86803; 87040; 87077; 87186; 87205; 87340; 93005; 93970; 96365; 96367; 96375; G0378; J1815; J2001; J2405; J2543; J3490

== ENCOUNTER 2023-08-07 21:44 | Emergency (ER) | payer MEDICAID ==
[~2023-08-07] VITALS: Ht 200.7 cm; Wt 212.0 kg
[~2023-08-07 21:44] MED LIST changes: +ARIP10TA29 PO; +ATOR10TA PO; +ESCI1TAB36 PO
[2023-08-07] MEDS: SODIUM CHLORIDE 0.9% 1,000 ML IV ONE (22:15)
[2023-08-07] MEDS: ONDANSETRON HCL 4 MG/2 ML VIAL IV ONE (23:10)
[2023-08-07] MEDS: PANTOPRAZOLE 40 MG/10 ML VIAL INJ IV ONE (23:10)
[2023-08-07 23:23] VITALS: PULSE 108; RESP 20; O2SAT 100
[2023-08-07 23:41] LABS: Basophils # (auto) 0 10 ^3/uL (0-0.2); Basophils % (auto) 0.7 % (0.0-2.0); Eosinophils # (auto) 0.1 10 ^3/uL (0-0.8); Eosinophils % (auto) 1.8 % (0.0-7.0); Hematocrit 44.3 % (41.0-53.0); Lymphocytes # (auto) 2.2 10 ^3/uL (0.4-5.4); Mean Corpuscular Hemoglobin 28.7 pg (28.0-32.0); Mean Corpuscular Hgb Conc. 33.8 g/dL (32.0-36.0); Mean Corpuscular Volume 84.9 fL (80.0-100.0); Monocytes # (auto) 0.5 10 ^3/uL (0-1.3); Monocytes % (auto) 8.8 % (0.0-12.0); Neutrophils # (auto) 2.6 10 ^3/uL (1.6-8.6); Neutrophils % (auto) 47.7 % (37.0-80.0); Nucleated Red Blood Cells % 0.2 %; Red Blood Cells 5.22 10^6/uL (4.5-5.90); White Blood Cell 5.5 10^3/uL (4.4-10.8)
[2023-08-07 23:58] LABS: Alanine Aminotransferase 13 U/L (7-40); Albumin 4.1 g/dL (3.2-4.8); Alkaline Phosphatase 81 U/L (46-116); Anion Gap 4 (5-15); Aspartate Aminotransferase < 8 U/L (13-40); BUN/Creatinine Ratio 14.4 (10.0-20.0); Blood Urea Nitrogen 14 mg/dL (9-23); Calcium 9.5 mg/dL (8.7-10.4); Carbon Dioxide 29 mmol/L (20-30); Chloride 104 mmol/L (98-107); Glucose 188 mg/dL (74-106); Potassium 4.1 mmol/L (3.5-5.1); Sodium 137 mmol/L (136-145)
[2023-08-07 23:59] LABS: Bilirubin, Total 0.5 mg/dL (0.2-1.0); Total Protein 7.5 g/dL (5.7-8.2)
[2023-08-08] MEDS ORDERED: PANT40TA2 PO (00:14)
[2023-08-08] MEDS ORDERED: ZOFR4T PO (00:14)
[2023-08-08 01:11] VITALS: BP 119/87; PULSE 104; RESP 18; TEMP 98.4; O2SAT 100
[2023-08-08] MEDS: LIDOCAINE VISCOUS 2% 15ML UD PO ONE (01:18)
[2023-08-08] MEDS: MAALOX PLUS or MAALOX 30 ML PO ONE (01:18)
[2023-08-08] MEDS: DONNATAL 5ml ORAL Elix (BELLADONNA ALK-PHENOBARB) PO ONE (01:19)
== END 2023-08-08 01:57 | disposition home or self-care (01) ==
LOC: EDBD 21:44 → ER 21:44
DX: F15.10 Other stimulant abuse, uncomplicated (principal); R11.2 Nausea with vomiting, unspecified; E11.9 Type 2 diabetes mellitus without complications; K21.9 Gastro-esophageal reflux disease without esophagitis; F20.9 Schizophrenia, unspecified; F31.9 Bipolar disorder, unspecified
CPT/HCPCS: 36415; 80053; 85025; 96361; 96374; 96375; 99284; J2405; J7030

== ENCOUNTER 2024-07-19 11:58 | Emergency (ER) | payer MEDICARE, MEDICAID ==
[~2024-07-19] VITALS: Ht 200.7 cm; Wt 91.0 kg
[~2024-07-19 11:58] MED LIST changes: +PANT40TA2 PO; +ZOFR4T PO
--- NOTE | 2024-07-19 12:41 | ED.PDOC ---
General HPI Comments 39 y/o M, RON, with PMHx of DM, gerd, schizophrenia, and bipolar disorder presents to the ED for CC of groin pain. Patient states, he has been experiencing groin pain with associated symptoms of bladder incontinence and diarrhea onset, today (07/19/24). Patient complains, of current 10/10 groin pain. In route, to the ED patient was given 1g IV Tylenol and 500mL NS bolus. Patient denies fever, chills, nausea, vomiting, or fatigue. No other symptoms or modifying factors present at this time. Chief Complaint: Pelvic Pain Time Seen by MD: 12:35 Primary Care Provider: UNKNOWN Reviewed notes: Nurses Notes, Food Analyst Notes, Medications, Allergies Allergies: Coded Allergies: NO KNOWN ALLERGIES (Unverified , 08/26/12) Home Meds Active Scripts Ondansetron Odt 4MG Tab (ZOFRAN PO) 4 Mg Tb, 4 MG PO TID for 30 Days, #30 TAB ODT TAB-DISSOLVE IN MOUTH, THEN SWALLOW Prov:AHMET GANDHI MD 08/08/23 Pantoprazole Sodium Sesquihydr (Protonix) 40 Mg Tab, 40 MG PO DAILY PRN for 30 Days, #30 TAB Prov:AHMET GANDHI MD 08/08/23 Reported Medications Atorvastatin Calcium (Lipitor) 10 Mg Tab, 1 TAB PO QPM, #90 TAB 1 Refill 05/10/23 Aripiprazole (Aripiprazole) 10 Mg Tab, 1 TAB PO DAILY 05/10/23 Escitalopram Oxalate (ESCITALOPRAM OXALATE) 10 Mg Tab, 1 TAB PO DAILY 05/10/23 Metformin Hydrochloride (Metformin Hcl) 500 Mg Tab, 1000 MG PO BID 02/18/11 Information Source: Patient Mode of Arrival: EMS Severity: Moderate Inability to void: None Timing: Hours Duration: Since onset Prehospital treatment: IVF, Other (tylenol) Onset: Spontaneous Symptoms: None History of: None Location: None Penile discharge: None Modifying factors: None associated signs and symptoms: None Past Medical History PAST MEDICAL HISTORY: DM, GERD, Schizophrenia Past Medical History (Other): bipolar Surgical History: Denies all surgeries Family History Family History: Reviewed,noncontributory to illness Social History Smoker: Non-Smoker Alcohol: Occasionally Drugs: Marijuana, Methamphetamine Lives In: Home Constitutional: denies: chills, diaphoresis, fatigue, fever, malaise, sweats, weakness, others EENTM: denies: blurred vision, double vision, ear bleeding, ear discharge, ear drainage, ear pain, ear ringing, eye pain, eye redness, hearing loss, mouth pain, mouth swelling, nasal discharge, nose bleeding, nose congestion, nose pain, photophobia, tearing, throat pain, throat swelling, voice changes, others Respiratory: denies: cough, hemoptysis, orthopnea, SOB at rest, shortness of breath, SOB with excertion, stridor, wheezing, others Cardiovascular: denies: chest pain, dizzy spells, diaphoresis, Dyspnea on exertion, edema, irregular heart beat, left arm pain, lightheadedness, palpitations, PND, syncope, others Gastrointestinal: reports: diarrhea; denies: abdomen distended, abdominal pain, blood streaked bowels, constipated, dysphagia, difficulty swallowing, hematemesis, melena, nausea, poor appetite, poor fluid intake, rectal bleeding, rectal pain, vomiting, others Genitourinary: reports: incontinence; denies: burning, dysuria, flank pain, frequency, hematuria, penile discharge, penile sore, pain, testicle pain, testicle swelling, urgency, others Neurological: denies: dizziness, fainting, headache, left sided numbness, left sided weakness, numbness, paresthesia, pre-existing deficit, right sided numbness, right sided weakness, seizure, speech problems, tingling, tremors, weakness, others Musculoskeletal: denies: back pain, gout, joint pain, joint swelling, muscle pain, muscle stiffness, neck pain, others Integumetry: denies: bruises, change in color, change in hair/nails, dryness, laceration, lesions, lumps, rash, wounds, others Allergic/Immunocompromised: denies: Difficulty Healing, Frequent Infections, Hives, Itching, others Hematologic/Lymphatic: denies: anemia, blood clots, easy bleeding, easy bruising, swollen glands, others Endocrine: denies: excessive hunger, excessive sweating, excessive thirst, excessive urination, flushing, intolerance to cold, intolerance to heat, unexplained weight gain, unexplained weight loss, others Psychiatric: denies: anxiety, bipolar disorder, depression, hopeless, panic disorder, schizophrenia, sleepless, suicidal, others All Other Systems: Reviewed and Negative Physical Exam General Appearance: Moderate Distress HEENT: Normal ENT Inspection, PERRL/EOMI Neck: Full Range of Motion, Non-Tender, Normal, Normal Inspection Respiratory: Chest Non-Tender, Lungs Clear, No Accessory Muscle Use, No Respiratory Distress, Normal Breath Sounds Cardiovascular: No Edema, No JVD, No Murmur, No Gallop, Normal Peripheral Pulses, Regular Rate/Rhythm Breast Exam: Deferred Gastrointestinal: No Organomegaly, Non Tender, No Pulsatile Mass, Normal Bowel Sounds, Soft Genitalia: Epididymis, Scrotum, Testicle, Other (Orchitis) Pelvic: Deferred Rectal: Deferred Extremities: No calf tenderness, Normal capillary refill, Normal inspection, Normal range of motion, Non-tender, No pedal edema, Other (Stasis dermatitis) Neurologic: 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 Was a procedure done?: No Differential Diagnosis Kidney stone (Female): N/A Kidney stone (Male): Urinary obstruction, Urolithiasis, Urinary tract infection Penile/Scrotal: Epidiymitis, UTI, Hydrocele, Testicular Torsion, Urolithiasis Urinary Problem (Male): Bladder Obstruction, Epididymitis, Prostatitis, Plelonephritis, Urinary Retention, Urolithiasis, UTI Urinary Problem (Female): N/A X-Ray, Labs, Meds, VS Vital Signs Date Time Temp Pulse Resp B/P (MAP) Pulse Ox O2 Delivery O2 Flow Rate FiO2 07/19/24 15:42 97.8 103 12 103/71 (82) 98 97.8 07/19/24 13:51 98.3 109 16 95/67 (76) 94 98.3 07/19/24 12:12 99.5 96 14 125/80 (95) 98 99.5 Current Medications Medications (Trade) Dose Ordered Sig/Dion Route Start Time Stop Time Status Last Admin Metoclopramide HCl (Reglan Injection) 10 mg ONCE ONCE IV 07/19/24 14:00 07/19/24 14:01 DC 07/19/24 14:17 Ketorolac Tromethamine (Toradol Injection) 30 mg ONCE ONCE IV 07/19/24 14:00 07/19/24 14:01 DC 07/19/24 14:16 X-Ray, Labs, Meds, VS Comment With a swollen tender right testis The ultrasound shows right epididymitis Patient will be discharged home to follow up with his PCP Time of 1ST Reevaluation: 13:05 Reevaluation 1ST: Unchanged Consultation: PCP Patient Education/Counseling: Diagnosis, Treatment Family Education/Counseling: Diagnosis, Treatment, No Family Present Departure 1 Departure Time of Disposition: 16:12 Impression: Primary Impression: Acute epididymitis Disposition: HOME / SELF CARE / HOMELESS Condition: Fair Additional Instructions: Local heat and follow up with your PCP and urologist e-Prescriptions Naproxen (Naproxen) 375 Mg Tab 1 TAB PO TID for 5 Days, #15 TAB 5 Refills Prov: JULIO MANZO MD 07/19/24 Cefdinir (Cefdinir) 300 Mg Cap 300 MG PO BID for 10 Days, #20 CAP Prov: JULIO MANZO MD 07/19/24 Discharged With: Self Critical Care Note Critical Care Time?: No Stability Stability form required: No Heart Score Heart Score: Heart Score Response (Comments) Value History N/A 0 EKG N/A 0 Age <45 0 Risk Factors 1 or 2 risk factors 1 Troponin N/A 0 Total 1 I personally scribed for JULIO MANZO MD ([email or web address]) on 07/19/24 at 12:40. Electronically submitted by Shelly Ramos ([email or web address]). JULIO MANZO MD Jul 19, 2024 12:40
[2024-07-19] MEDS: KETOROLAC TROMETH 30 MG/ML 1ML VIAL IV ONE (14:16)
[2024-07-19] MEDS: METOCLOPRAMIDE HCL 5MG/ml INJ 2ml VIAL IV ONE (14:17)
--- NOTE | 2024-07-19 15:41 | DVH ---
ULTRASOUND OF SCROTUM AND CONTENTS. INDICATION: Acute orchitis COMPARISON: None TECHNIQUE: Multiple real-time grayscale sonographic and color and duplex Doppler images of the scrotu m and its contents were obtained. FINDINGS: RIGHT TESTICLE: Measures 3.7 x 2.8 x 3 cm. Right epididymis 16.9 mm appears enlarged and hypervascular LEFT TESTICLE: Measures 4.3 x 2.4 x 2.8 cm. Left epididymis measures 11.8 mm and appears normal Both testicles demonstrate homogeneous echotexture without evidence of focal lesions. The right epididymal head measures 16.9 mm cm. The left epididymal head measures 11.8 mm cm. Subsequent color and duplex Doppler interrogation of the testes demonstrated symmetric normal vascula r flow to both testicles. Right epididymis is hypervascular. focal areas of hyperemia were seen. IMPRESSION: 1. 3.7 cm right testicle. 4.3 cm left testicle. 2.. Right epididymis is enlarged measures 16.2 mm and appears hypervascular..
[2024-07-19 15:42] VITALS: BP 103/71; PULSE 103; RESP 12; TEMP 97.8; O2SAT 98
[2024-07-19] MEDS ORDERED: NAPR-957 PO (16:14)
[2024-07-19] MEDS ORDERED: CEFD300C2 PO (16:14)
== END 2024-07-19 16:18 | disposition home or self-care (01) ==
LOC: EDBD 11:58 → ER 11:58
DX: N45.1 Epididymitis (principal); F12.90 Cannabis use, unspecified, uncomplicated; F19.90 Other psychoactive substance use, unspecified, uncomplicated; F10.90 Alcohol use, unspecified, uncomplicated; E11.9 Type 2 diabetes mellitus without complications; F20.9 Schizophrenia, unspecified; K21.9 Gastro-esophageal reflux disease without esophagitis; F31.9 Bipolar disorder, unspecified; Z79.899 Other long term (current) drug therapy; Z79.84 Long term (current) use of oral hypoglycemic drugs; Y90.9 Presence of alcohol in blood, level not specified
CPT/HCPCS: 76870; 96374; 96375; 99285; J1885; J2765

== ENCOUNTER 2024-08-22 20:01 | Inpatient (IN) | payer MEDICARE, MEDICAID ==
[~2024-08-22] VITALS: Ht 200.7 cm; Wt 90.3 kg
[~2024-08-22 20:01] MED LIST changes: +CEFD300C2 PO; +NAPR-957 PO
--- NOTE | 2024-08-22 20:17 | ED.PDOC ---
GI ASSESSMENT HPI Comments 39 year old male with a Hx of DM, Bipolar, Inguinal Hernia, Methamphetamine, and Marijuana use was BIBA for the c/c of Suprapubic ABD pain w/ associated Constipation, and Polyuria. Per EMS pt was at 8/10 pain upon arrival but has since improved after receiving Ketamine. Pt is noted to be A&Ox3 and Blood Sugar was [address] No other associated symptoms, modifiers, recent injuries or sick contacts present at this time. Time Seen by MD: 20:12 Primary Care Provider: UNKNOWN Reviewed Notes: Nurses Notes, Commercial Relationship Manager Notes, Medications, Allergies Allergies: Coded Allergies: NO KNOWN ALLERGIES (Unverified , 08/26/12) Home Meds Active Scripts Naproxen (Naproxen) 375 Mg Tab, 1 TAB PO TID for 5 Days, #15 TAB 5 Refills Prov:JULIO MANZO MD 07/19/24 Cefdinir (Cefdinir) 300 Mg Cap, 300 MG PO BID for 10 Days, #20 CAP Prov:JULIO MANZO MD 07/19/24 Ondansetron Odt 4MG Tab (ZOFRAN PO) 4 Mg Tb, 4 MG PO TID for 30 Days, #30 TAB ODT TAB-DISSOLVE IN MOUTH, THEN SWALLOW Prov:AHMET GANDHI MD 08/08/23 Pantoprazole Sodium Sesquihydr (Protonix) 40 Mg Tab, 40 MG PO DAILY PRN for 30 Days, #30 TAB Prov:AHMET GANDHI MD 08/08/23 Reported Medications Atorvastatin Calcium (Lipitor) 10 Mg Tab, 1 TAB PO QPM, #90 TAB 1 Refill 05/10/23 Aripiprazole (Aripiprazole) 10 Mg Tab, 1 TAB PO DAILY 05/10/23 Escitalopram Oxalate (ESCITALOPRAM OXALATE) 10 Mg Tab, 1 TAB PO DAILY 05/10/23 Metformin Hydrochloride (Metformin Hcl) 500 Mg Tab, 1000 MG PO BID 02/18/11 Information Source: Patient, Emergency Med Personnel Mode of Arrival: EMS Timing: Hours Duration: Since onset, Hours Prehospital treatment: Oxygen, Pain Meds Quality: Aching, Cramping Vomitus: None Stool: Normal Severity: Moderate Recent: None Recent Hx of: Constipation, Diabetes Pain Location: Suprapubic Modifying Factors: Exertion, Movement Associated sign and symptoms: Constipation, Abdominal Pain Past Medical History PAST MEDICAL HISTORY: DM, GERD, Schizophrenia Surgical History: Denies all surgeries Family History Family History: Reviewed,noncontributory to illness Social History Smoker: Non-Smoker Alcohol: Occasionally Drugs: Marijuana, Methamphetamine Lives In: Home Constitutional: denies: chills, diaphoresis, fatigue, fever, malaise, sweats, weakness, others EENTM: denies: blurred vision, double vision, ear bleeding, ear discharge, ear drainage, ear pain, ear ringing, eye pain, eye redness, hearing loss, mouth pain, mouth swelling, nasal discharge, nose bleeding, nose congestion, nose pain, photophobia, tearing, throat pain, throat swelling, voice changes, others Respiratory: denies: cough, hemoptysis, orthopnea, SOB at rest, shortness of breath, SOB with excertion, stridor, wheezing, others Cardiovascular: denies: chest pain, dizzy spells, diaphoresis, Dyspnea on exertion, edema, irregular heart beat, left arm pain, lightheadedness, palpitations, PND, syncope, others Gastrointestinal: reports: abdominal pain; denies: abdomen distended, blood streaked bowels, constipated, diarrhea, dysphagia, difficulty swallowing, hemate mesis, melena, nausea, poor appetite, poor fluid intake, rectal bleeding, rectal pain, vomiting, others Genitourinary: denies: burning, dysuria, flank pain, frequency, hematuria, incontinence, penile discharge, penile sore, pain, testicle pain, testicle swelling, urgency, others Neurological: denies: dizziness, fainting, headache, left sided numbness, left sided weakness, numbness, paresthesia, pre-existing deficit, right sided numbness, right sided weakness, seizure, speech problems, tingling, tremors, weakness, others Musculoskeletal: denies: back pain, gout, joint pain, joint swelling, muscle pain, muscle stiffness, neck pain, others Integumetry: denies: bruises, change in color, change in hair/nails, dryness, laceration, lesions, lumps, rash, wounds, others Allergic/Immunocompromised: denies: Difficulty Healing, Frequent Infections, Hives, Itching, others Hematologic/Lymphatic: denies: anemia, blood clots, easy bleeding, easy bruising, swollen glands, others Endocrine: denies: excessive hunger, excessive sweating, excessive thirst, excessive urination, flushing, intolerance to cold, intolerance to heat, u nexplained weight gain, unexplained weight loss, others Psychiatric: denies: anxiety, bipolar disorder, depression, hopeless, panic disorder, schizophrenia, sleepless, suicidal, others All Other Systems: Reviewed and Negative Physical Exam General Appearance: Mild Distress, Normal HEENT: Normal ENT Inspection, Pharynx Normal, TMs Normal Neck: Full Range of Motion, Non-Tender, Normal, Normal Inspection Respiratory: Chest Non-Tender, Lungs Clear, No Accessory Muscle Use, No Respiratory Distress, Normal Breath Sounds Cardiovascular: No Edema, No JVD, No Murmur, No Gallop, Normal Peripheral Pulses, Regular Rate/Rhythm Breast Exam: Deferred Gastrointestinal: Hernia, No Organomegaly, Normal Bowel Sounds, Soft, Suprapubic, Tenderness Genitalia: Deferred Pelvic: Deferred Rectal: Deferred Extremities: No calf tenderness, Normal capillary refill, Normal inspection, Normal range of motion, Non-tender, No pedal edema Musculoskeletal : Apperance: Normal Neurologic: Disoriented, No Motor Deficits, Normal Affect, Normal Mood, No Sensory Deficits Cerebellar Function: Normal Reflexes: Normal Skin: Dry, Normal Color, Warm Lymphatic: No Adenopathy Was a procedure done? Was a procedure done?: No GI differential Dx Differential Diagnosis: Appendicitis, Bowel Obstruction, Cholangitis, Chol ecystitis, Constipation, Diverticular disease, Dysmenorrhea, Gastritis/PUD, Gastroenteritis, GI hemorrhage, Hernia, Hepatitis, Inflammatory BD, Ischemic Bowel, Pancreatitis, Urinary Obstruction, UTI, Urolithiasis, Dehydration, Diabetes/ DKA, Drug toxicity, Electrolyte Imbalance, Food Poisoning, Bacterial, Parasitic, Malnutrition, Ischemic Bowel, Mass, Anemia, Esophageal Varicies, S tress Ulcer, Kidney Stone X-Ray, Labs, Meds, VS Vital Signs Date Time Temp Pulse Resp B/P (MAP) Pulse Ox O2 Delivery O2 Flow Rate FiO2 08/23/24 04:00 98.3 98 14 128/76 (93) 97 98.3 08/23/24 02:30 98 Room Air* 0 21 08/23/24 02:00 101 14 126/78 (94) 98 08/23/24 01:05 94 14 118/77 08/23/24 00:36 97 14 109/75 08/23/24 00:30 97 14 109/75 (86) 97 08/22/24 23:30 100 13 121/81 (94) 97 08/22/24 22:30 99 15 130/81 (97) 98 08/22/24 21:30 97 16 127/93 (104) 98 08/22/24 20:30 73 18 131/55 (80) 98 08/22/24 20:30 73 18 98 Room Air* 0 21 08/22/24 20:28 98.2 132 21 161/97 (118) 100 98.2 Lab Test 08/22/24 23:29 08/22/24 23:05 08/22/24 21:20 08/22/24 21:10 Range/Units Lactic Acid Level 1.4 2.5 *H 0.4-2.0 mmol/L Urine Color Light-yellow Yellow Urine Clarity Clear Clear Urine pH 5.5 5.0-9.0 Urine Specific [place] 1.041 H 1.001-1.035 Urine Protein Negative Negative Urine Ketones 1+ H Negative Urine Blood Negative Negative /uL Urine Nitrite Negative Negative Urine Bilirubin Negative Negative Urine Urobilinogen Normal Negative mg/dL Urine Leukocyte Esterase Negative Negative /uL Urine RBC 2 0 - 3 /hpf Urine Microscopic WBC 24 H 0-3 /HPF Urine Squamous Epithelial Cells None seen <5 /hpf Urine Bacteria None seen None Seen /hpf Urine Glucose 4+ H Normal mg/dL POC Glucose 337 H 70-106 mg/dl Test 08/22/24 20:34 Range/Units White Blood Count 11.8 H 4.4-10.8 10^3/uL Red Blood Count 4.82 4.5-5.90 10^6/uL Hemoglobin 13.8 13.5-17.5 g/dL Hematocrit 40.8 L 41.0-53.0 % Mean Corpuscular Volume 84.5 80.0-100.0 fL Mean Corpuscular Hemoglobin 28.6 28.0-32.0 pg Mean Corpuscular Hemoglobin Concent 33.9 32.0-36.0 g/dL Red Cell Distribution Width 13.6 11.8-14.3 % Platelet Count 300 140-450 10^3/uL Mean Platelet Volume 7.4 6.9-10.8 fL Neutrophils (%) (Auto) 78.5 37.0-80.0 % Lymphocytes (%) (Auto) 12.5 10.0-50.0 % Monocytes (%) (Auto) 7.8 0.0-12.0 % Eosinophils (%) (Auto) 0.9 0.0-7.0 % Basophils (%) (Auto) 0.3 0.0-2.0 % Neutrophils # (Auto) 9.3 H 1.6-8.6 10 ^3/uL Lymphocytes # (Auto) 1.5 0.4-5.4 10 ^3/uL Monocytes # (Auto) 0.9 0-1.3 10 ^3/uL Eosinophils # (Auto) 0.1 0-0.8 10 ^3/uL Basophils # (Auto) 0 0-0.2 10 ^3/uL Nucleated Red Blood Cells 0.0 % Sodium Level 132 L 136-145 mmol/L Potassium Level 5.0 3.5-5.1 mmol/L Chloride Level 94 L 98-107 mmol/L Carbon Dioxide Level 29 20-31 mmol/L Anion Gap 9 5-15 Blood Urea Nitrogen 17 9-23 mg/dL Creatinine 1.17 0.700-1.30 mg/dL Glomerular Filtration Rate Calc 81 >90 mL/min BUN/Creatinine Ratio 14.5 10.0-20.0 Serum Glucose 343 H 74-106 mg/dL Calcium Level 10.0 8.7-10.4 mg/dL Total Bilirubin 0.3 0.2-1.0 mg/dL Aspartate Amino Transferase (AST) 8 L 13-40 U/L Alanine Aminotransferase (ALT) < 9 7-40 U/L Alkaline Phosphatase 142 H 46-116 U/L Total Protein 8.8 H 5.7-8.2 g/dL Albumin 4.4 3.2-4.8 g/dL Lipase 36 12-53 U/L Current Medications Medications (Trade) Dose Ordered Sig/Dion Route Start Time Stop Time Status Last Admin Sodium Chloride 1,000 ml @ 1,000 mls/hr Q1H ONCE IVB 08/22/24 20:15 08/22/24 21:14 DC 08/22/24 21:05 Insulin Human Regular (InsuLIN R) 4 units ONCE ONCE SC 08/22/24 20:15 08/22/24 20:16 DC 08/22/24 21:08 Piperacillin Sod/ Tazobactam Sod 50 ml @ 50 mls/hr ONCE ONCE IV 08/22/24 21:15 08/22/24 22:14 DC 08/22/24 21:17 Morphine Sulfate 4 mg ONCE ONCE IV 08/23/24 00:30 08/23/24 00:31 DC 08/23/24 00:36 Ondansetron HCl (Zofran) 4 mg ONCE ONCE IV 08/23/24 00:30 08/23/24 00:31 DC 08/23/24 00:36 Time of 1ST Reevaluation: 20:43 Reevaluation 1ST: Unchanged Patient Education/Counseling: Diagnosis, Treatment, Need For Follow Up Family Education/Counseling: No Family Present SEPSIS Sepsis Screen Physician Orders Ct Ab Pel With Iv Con Only (08/22/24 20:12) Blood Culture (08/22/24 21:05) Vital Signs Date Time Temp Pulse Resp B/P (MAP) Pulse Ox O2 Delivery O2 Flow Rate FiO2 08/23/24 04:00 98.3 98 14 128/76 (93) 97 98.3 08/23/24 02:30 98 Room Air* 0 21 08/23/24 02:00 101 14 126/78 (94) 98 08/23/24 01:05 94 14 118/77 08/23/24 00:36 97 14 109/75 08/23/24 00:30 97 14 109/75 (86) 97 08/22/24 23:30 100 13 121/81 (94) 97 08/22/24 22:30 99 15 130/81 (97) 98 08/22/24 21:30 97 16 127/93 (104) 98 08/22/24 20:30 73 18 131/55 (80) 98 08/22/24 20:30 73 18 98 Room Air* 0 21 08/22/24 20:28 98.2 132 21 161/97 (118) 100 98.2 Laboratory Tests Test 08/22/24 20:34 08/22/24 21:20 08/22/24 23:29 White Blood Count 11.8 10^3/uL (4.4-10.8) H Lactic Acid Level 2.5 mmol/L (0.4-2.0) *H 1.4 mmol/L (0.4-2.0) Medications Medications Dose Ordered Sig/Dion Route Start Time Stop Time Status Last Admin Dose Admin Insulin Human Regular 4 units ONCE ONCE SC 08/22/24 20:15 08/22/24 20:16 DC 08/22/24 21:08 Morphine Sulfate 4 mg ONCE ONCE IV 08/23/24 00:30 08/23/24 00:31 DC 08/23/24 00:36 Ondansetron HCl 4 mg ONCE ONCE IV 08/23/24 00:30 08/23/24 00:31 DC 08/23/24 00:36 Piperacillin Sod/ Tazobactam Sod 50 ml @ 50 mls/hr ONCE ONCE IV 08/22/24 21:15 08/22/24 22:14 DC 08/22/24 21:17 Sodium Chloride 1,000 ml @ 1,000 mls/hr Q1H ONCE IVB 08/22/24 20:15 08/22/24 21:14 DC 08/22/24 21:05 Departure 1 Departure Time of Disposition: 05:46 Impression: Primary Impression: Dehydration Additional Impressions: Type 2 diabetes mellitus with hyperglycemia Prostatitis Prostatic abscess Disposition: ADMITTED INPATIENT Condition: Guarded Comments Suprapubic Abdominal Pain with Prostatitis and Prostatic Abscess Chief Complaint: Suprapubic abdominal pain with malaise and constipation History of Present Illness: 39-year-old male with a history of type 2 diabetes, bipolar disorder, and prior methamphetamine and marijuana use presents to the Emergency Department with complaints of suprapubic abdominal pain associated with malaise and constipation. The patient reports lower abdominal tenderness. 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 Given his presentation and subsequent findings, there is concern for genitourinary infection, specifically prostatitis with possible abscess formation. Review of Systems: Constitutional: Positive for malaise. Gastrointestinal: Positive for constipation and suprapubic abdominal pain. Genitourinary: Positive for suprapubic tenderness. All other systems: Not documented or reviewed. Medications: Current medications not specified in drying machine operator package yarns. Likely on diabetic medications given history of type 2 diabetes. Possibly on psychiatric medications for bipolar disorder. Allergies: No known drug allergies documented in drying machine operator package yarns. Past Medical History: Type 2 diabetes mellitus Bipolar disorder History of substance use (methamphetamine and marijuana) Lab Results: CBC: - WBC: 11.8 (Elevated) Chemistry: - Glucose: 337 mg/dL (Elevated) - Sodium: 132 mEq/L (Mild hyponatremia) - Lactic acid: 2.5 mmol/L (Slightly elevated) Urinalysis: - RBC: Small (2) - WBC: Large (24) - Leukocyte esterase: Negative - Nitrites: Negative Imaging and Other Relevant Results: CT Abdomen/Pelvis: - Findings consistent with prostatitis - Fluid collection consistent with prostatic abscess - Bilateral inguinal lymphadenopathy noted Medical Decision Making: Summary Statement: 39-year-old male with type 2 diabetes and history of substance use presenting with suprapubic pain and laboratory findings of leukocytosis and hyperglycemia. CT imaging reveals prostatitis with likely prostatic abscess requiring inpatient management. Problem List: 1. Acute prostatitis with prostatic abscess, 2. Type 2 diabetes with hyperglycemia, 3. Bipolar disorder, 4. History of substance use (methamphetamine and marijuana), 5. Mild hyponatremia Differential Diagnosis: Prostatitis, prostatic abscess, urinary tract infection, pyelonephritis, diverticulitis, appendicitis, inflammatory bowel disease, urinary retention, nephrolithiasis, testicular pathology ED Course: Patient received IV Zosyn (piperacillin-tazobactam) for broad- spectrum antibiotic coverage of suspected genitourinary infection. IV fluids were administered for hydration and to address mild hyponatremia. Laboratory studies revealed leukocytosis, hyperglycemia, mild hyponatremia, and slightly elevated lactic acid. CT imaging confirmed prostatitis with likely prostatic abscess. Decision made to admit for continued IV antibiotics and management of hyperglycemia. Assessment and Plan: 1. Acute Prostatitis with Prostatic Abscess: - Admit to inpatient service for continued IV antibiotics (Zosyn initiated in ED) - Urology consultation for evaluation of prostatic abscess and potential need for drainage - Pain management as needed - Serial WBC counts to monitor response to treatment 2. Type 2 Diabetes with Hyperglycemia (Glucose 337): - Insulin management during hospitalization - Monitor blood glucose levels regularly - Endocrinology consultation if glycemic control remains difficult - Review and adjust outpatient diabetic regimen prior to discharge 3. Bipolar Disorder: - Continue home psychiatric medications if known - Psychiatry consultation if needed during hospitalization 4. History of Substance Use: - Monitor for signs of withdrawal - Substance abuse counseling referral prior to discharge 5. Mild Hyponatremia (Sodium 132): - Likely dilutional or related to hyperglycemia - IV fluid management - Serial electrolyte monitoring Additional Notes: Patient requires admission for prostatitis with prostatic abscess and management of hyperglycemia Billing Information: ICD-10: N41.2 - Prostatic abscess ICD-10: N41.0 - Acute prostatitis ICD-10: E11.65 - Type 2 diabetes mellitus with hyperglycemia ICD-10: F31.9 - Bipolar disorder, unspecified ICD-10: F15.20 - Methamphetamine dependence, uncomplicated Critical Care Note Critical Care Time?: No Stability Stability form required: No Heart Score Heart Score: Heart Score Response (Comments) Value History N/A 0 EKG N/A 0 Age N/A 0 Risk Factors N/A 0 Troponin N/A 0 Total 0 I personally scribed for MARCOS WEAVER MD ([email or web address]) on 08/22/24 at 20:17. Electronically submitted by Jordon Tinoco ([email or web address]). MARCOS WEAVER MD Aug 22, 2024 20:17
[2024-08-22 20:30] VITALS: PULSE 73; RESP 18; O2SAT 98
[2024-08-22 20:51] LABS: Hematocrit 40.8 % (41.0-53.0); Hemoglobin 13.8 g/dL (13.5-17.5); Mean Corpuscular Hemoglobin 28.6 pg (28.0-32.0); Mean Corpuscular Volume 84.5 fL (80.0-100.0); Nucleated Red Blood Cells % 0.0 %
[2024-08-22] MEDS: SODIUM CHLORIDE 0.9% 1,000 ML IVB ONE (21:05)
[2024-08-22] MEDS: InsuLIN REG 1unit/0.01ml Soln (100units/ml) SC ONE (21:08)
[2024-08-22 21:09] LABS: Albumin 4.4 g/dL (3.2-4.8); Anion Gap 9 (5-15); BUN/Creatinine Ratio 14.5 (10.0-20.0); Blood Urea Nitrogen 17 mg/dL (9-23); Calcium 10.0 mg/dL (8.7-10.4); Carbon Dioxide 29 mmol/L (20-31); Lipase 36 U/L (12-53); Potassium 5.0 mmol/L (3.5-5.1)
[2024-08-22 21:11] LABS: Alanine Aminotransferase < 9 U/L (7-40); Alkaline Phosphatase 142 U/L (46-116); Bilirubin, Total 0.3 mg/dL (0.2-1.0); Chloride 94 mmol/L (98-107); Glucose 343 mg/dL (74-106); Sodium 132 mmol/L (136-145); Total Protein 8.8 g/dL (5.7-8.2)
[2024-08-22] MEDS: PIPERACILLIN-TAZOB 2.25GM 50 ML IV ONE (21:17)
[2024-08-22] MEDS: IOHEXOL 300 MG/ML 100ML BOTTLE IJ ONE (22:01)
[2024-08-22 22:25] LABS: Lactic Acid w/Reflex 2.5 mmol/L (0.4-2.0)
[2024-08-22 23:19] LABS: Urine Protein, UAD Negative (Negative)
[2024-08-23] MEDS: ONDANSETRON HCL 4 MG/2 ML VIAL IV ONE (00:36)
[2024-08-23] MEDS: MORPHINE SULFATE 4 MG/ML SYR/VIAL IV ONE (00:36)
[2024-08-23 02:30] VITALS: O2SAT 98
--- NOTE | 2024-08-23 05:26 | DVH ---
Exam: CT CT AB PEL WITH IV CON ONLY History: abd pain COMPARISON: None Technique: Multidetector spiral CT of the abdomen and pelvis was performed from lung bases to pubic s ymphysis. Intravenous contrast was administered during this examination. Portal venous imaging was o btained. Axial, coronal and sagittal multiplanar reformats were performed by the technologist on a [employer] workstation. Radiation Dose : 1. Abdomen/Pelvis: CTDIvol 11.36 mGy, DLP 816.82 mGy*cm. CONTRAST: Type of contrast: Omniscan 300 Contrast injected: 100 ml Findings: Lung Bases: No acute or significant lung base finding. Normal heart size. No pleural or pericardial effusion. Liver: The liver is enlarged, measuring 22.5 cm in craniocaudal dimension. No focal lesions. Normal hepatic vascular enhancement. Gallbladder and Biliary Tree: Unremarkable Spleen: Unremarkable Pancreas: The pancreas is normal in appearance without focal lesions or abnormal enhancement. Adrenal Glands: Unremarkable Kidneys: No hydronephrosis. Bladder: Collapsed, containing a Kan catheter. Bowel: The stomach is grossly normal in appearance. Retained colorectal stool. Small bowel and colon are otherwise normal in caliber and distribution. The appendix is normal. Ascites: Absent Lymphadenopathy: Bilateral inguinal lymph node enlargement measures up to 1.9 cm on the left and 1.4 cm on the right. Shotty retroperitoneal lymphadenopathy noted. Abdominal Wall and Mesentery: Unremarkable. Vasculature: The visualized abdominal aorta is normal in size and caliber. Abdominal and pelvic vess els demonstrate normal enhancement. Pelvic Organs: The prostate is enlarged, measuring 7.1 x 4.2 cm, with multi-septate near water attenu ation cystic changes centrally concerning for prostatitis and prostatic abscess. The more superiorly oriented cystic focus measures up to 4.6 cm. Inferiorly, the near water attenuation cystic focus burke ures 3.0 cm. Musculoskeletal: No aggressive focal bony lesions, acute fractures or dislocation. IMPRESSION: 1. Enlarged prostate with central multi-septate cystic near water attenuation foci consistent with pr ostatitis and prostatic abscess. 2. Bilateral inguinal and retroperitoneal lymphadenopathy. 3. Retained colorectal stool. Radiation optimization: All CT scans at this facility use at least one of these dose optimization antwan hniques: automated exposure control mA and/or kV adjustment per patient size (includes targeted exam s where dose is matched to clinical indication) or iterative reconstruction.
[2024-08-23] MEDS ORDERED: MORPHINE SULFATE INJ 2 MG/ml SYRG IV PRN (06:00)
[2024-08-23] MEDS ORDERED: NITROGLYCERIN 0.4 MG SL TAB SL PRN (06:00)
[2024-08-23] MEDS ORDERED: DEXTROSE (50%) 50ML SYRG IV PRN (06:00)
[2024-08-23] MEDS ORDERED: ACETAMINOPHEN 325 MG TAB PO PRN (06:00)
[2024-08-23] MEDS ORDERED: ONDANSETRON HCL 4 MG/2 ML VIAL IV PRN (06:00)
--- NOTE | 2024-08-23 06:20 | DVHHP2 ---
History of Present Illness Reason for Visit: Acute abdominal pain History of Present Illness The patient is a 39-year-old male with past medical history of diabetes mellitus, GERD, schizophrenia who presented to [facility] ED with complaint of suprapubic abdominal pain. Patient reports he has been experiencing abdominal pain, rating pain 8/10 numeric scale, nonradiating, associated with constipation, polyuria, getting worse that prompted this visit. Patient was seen and evaluated in the ED, laboratory data shows WBC 11.8, platelets 300, sodium 132, potassium 5.0, BUN 17, creatinine 1.17, glucose 343, calcium 10.0, protein 8.8, lactic acid 2.5 trending down to 1.4, blood pressure 120/76, heart rate 98, temperature 98.3 F, O2 saturation 97% on room air. Abdomen/pelvis CT revealing enlarged prostate with central multi septate cystic near water attenuation Farsi consistent with prostatitis and prostatic abscess. Please see medication orders section in the computer. On my assessment, patient denied chest pain, no headache, no dizziness, no shortness of breath, no diaphoresis, no diarrhea, no nausea, no vomiting, no fever, no chills. Patient was admitted for further evaluation and medical management. Past Medical History DM, GERD, Schizophrenia, Bipolar, Substance abuse Past Surgical History Denies all surgeries Family History Reviewed, noncontributory to the management of this case. Past Social History The patient lives at home, denies smoking, drinks alcohol occasionally, uses marijuana and methamphetamine. Review of Systems Constitutional: No: Fever, Chills, Sweats, Weakness, Malaise, Other Eyes: No: Pain, Vision change, Conjunctivae inflammation, Eyelid inflammation, Other, Redness ENT: No: Ear pain, Ear discharge, Nose pain, Nose discharge, Nose congestion, Mouth pain, Mouth swelling, Throat pain, Throat swelling, Other Respiratory: No: Cough, Dry, Shortness of breath, SOB with excertion, Wheezing, Hemoptysis, Pleuritic Pain, Sputum, Wheezing, Other Cardiovascular: No: Chest Pain, Palpitations, Orthopnea, Paroxysmal Noc. Dyspnea, Edema, Lt Headedness, Other Gastrointestinal: Abdominal Pain, Constipation; No: Nausea, Vomiting, Diarrhea, Melena, Hematochezia, Other Genitourinary: No Dysuria, No Frequency, No Incontinence, No Hematuria, No Retention, No Other Musculoskeletal: No: other, neck pain, shoulder pain, arm pain, back pain, hand pain, leg pain, foot pain Skin: No: Rash, Lesions, Jaundice, Bruising, Other Neurological: No: Weakness, Numbness, Incoordination, Change in speech, Confusion, Seizures, Other Allergies: Coded Allergies: NO KNOWN ALLERGIES (Unverified , 08/26/12) Exam Vital Signs Vital Signs Date Time Temp Pulse Resp B/P (MAP) Pulse Ox O2 Delivery O2 Flow Rate FiO2 08/23/24 04:00 98.3 98 14 128/76 (93) 97 98.3 08/23/24 02:30 Room Air* 0 21 General Appearance: Alert, Oriented X3, Cooperative, No acute distress HEENT: Atraumatic, PERRLA, EOMI, Mucous membr. moist/pink Respiratory: Clear to auscultation, Normal air movement Cardiovascular: Regular rate, Normal S1, Normal S2 Abdominal: Normal bowel sounds, Soft, No hepatospenomegaly, No masses, Other (Reports tenderness) Extremities: No clubbing, No cyanosis, No edema, Normal pulses, No tenderness/swelling Skin: No rashes, No breakdown, No significant lesion Neuro: Normal gait, Normal speech, Strength at 5/5 X4 ext, Normal tone, Sensation intact, Cranial nerves 3-12 NL, Reflexes 2+ Psych/Mental Status: Mental status NL, Mood NL Labs/Xrays Labs Test 08/22/24 23:29 08/22/24 23:05 08/22/24 21:10 08/22/24 20:34 Range/Units Lactic Acid Level 1.4 0.4-2.0 mmol/L Urine Color Light-yellow Yellow Urine Clarity Clear Clear Urine pH 5.5 5.0-9.0 Urine Specific [place] 1.041 H 1.001-1.035 Urine Protein Negative Negative Urine Ketones 1+ H Negative Urine Blood Negative Negative /uL Urine Nitrite Negative Negative Urine Bilirubin Negative Negative Urine Urobilinogen Normal Negative mg/dL Urine Leukocyte Esterase Negative Negative /uL Urine RBC 2 0 - 3 /hpf Urine Microscopic WBC 24 H 0-3 /HPF Urine Squamous Epithelial Cells None seen <5 /hpf Urine Bacteria None seen None Seen /hpf Urine Glucose 4+ H Normal mg/dL POC Glucose 337 H 70-106 mg/dl White Blood Count 11.8 H 4.4-10.8 10^3/uL Red Blood Count 4.82 4.5-5.90 10^6/uL Hemoglobin 13.8 13.5-17.5 g/dL Hematocrit 40.8 L 41.0-53.0 % Mean Corpuscular Volume 84.5 80.0-100.0 fL Mean Corpuscular Hemoglobin 28.6 28.0-32.0 pg Mean Corpuscular Hemoglobin Concent 33.9 32.0-36.0 g/dL Red Cell Distribution Width 13.6 11.8-14.3 % Platelet Count 300 140-450 10^3/uL Mean Platelet Volume 7.4 6.9-10.8 fL Neutrophils (%) (Auto) 78.5 37.0-80.0 % Lymphocytes (%) (Auto) 12.5 10.0-50.0 % Monocytes (%) (Auto) 7.8 0.0-12.0 % Eosinophils (%) (Auto) 0.9 0.0-7.0 % Basophils (%) (Auto) 0.3 0.0-2.0 % Neutrophils # (Auto) 9.3 H 1.6-8.6 10 ^3/uL Lymphocytes # (Auto) 1.5 0.4-5.4 10 ^3/uL Monocytes # (Auto) 0.9 0-1.3 10 ^3/uL Eosinophils # (Auto) 0.1 0-0.8 10 ^3/uL Basophils # (Auto) 0 0-0.2 10 ^3/uL Nucleated Red Blood Cells 0.0 % Sodium Level 132 L 136-145 mmol/L Potassium Level 5.0 3.5-5.1 mmol/L Chloride Level 94 L 98-107 mmol/L Carbon Dioxide Level 29 20-31 mmol/L Anion Gap 9 5-15 Blood Urea Nitrogen 17 9-23 mg/dL Creatinine 1.17 0.700-1.30 mg/dL Glomerular Filtration Rate Calc 81 >90 mL/min BUN/Creatinine Ratio 14.5 10.0-20.0 Serum Glucose 343 H 74-106 mg/dL Calcium Level 10.0 8.7-10.4 mg/dL Total Bilirubin 0.3 0.2-1.0 mg/dL Aspartate Amino Transferase (AST) 8 L 13-40 U/L Alanine Aminotransferase (ALT) < 9 7-40 U/L Alkaline Phosphatase 142 H 46-116 U/L Total Protein 8.8 H 5.7-8.2 g/dL Albumin 4.4 3.2-4.8 g/dL Lipase 36 12-53 U/L PATIENT: CLAY ESCALANTET: [id number] UNIT: [id number] : 1985 LOC: ER ROOM / BED: / AGE / SEX: 39 / M ADM STATUS: REG ER SERVICE 11 ORDERING PHYSICIAN: MARCOS WEAVER MD PROCEDURE(s): ABPLIV - CT AB PEL WITH IV CON ONLY REASON: abd pain ORDER NUMBER(s): [id number], ACCESSION NUMBER(s): [id number] Exam: CT CT AB PEL WITH IV CON ONLY History: abd pain COMPARISON: None Technique: Multidetector spiral CT of the abdomen and pelvis was performed from lung bases to pubic symphysis. Intravenous contrast was administered during this examination. Portal venous imaging was obtained. Axial, coronal and sagittal multiplanar reformats were performed by the technologist on a separate workstation. Radiation Dose: 1. Abdomen/Pelvis: CTDIvol 11.36 mGy, DLP 816.82 mGy*cm. CONTRAST: Type of contrast: Omniscan 300 Contrast injected: 100 ml Findings: Lung Bases: No acute or significant lung base finding. Normal heart size. No pleural or pericardial effusion. Liver: The liver is enlarged, measuring 22.5 cm in craniocaudal dimension. No focal lesions. Normal hepatic vascular enhancement. Gallbladder and Biliary Tree: Unremarkable Spleen: Unremarkable Pancreas: The pancreas is normal in appearance without focal lesions or abnormal enhancement. Adrenal Glands: Unremarkable Kidneys: No hydronephrosis. Bladder: Collapsed, containing a Kan catheter. Bowel: The stomach is grossly normal in appearance. Retained colorectal stool. Small bowel and colon are otherwise normal in caliber and distribution. The appendix is normal. Ascites: Absent Lymphadenopathy: Bilateral inguinal lymph node enlargement measures up to 1.9 cm on the left and 1.4 cm on the right. Shotty retroperitoneal lymphadenopathy noted. Abdominal Wall and Mesentery: Unremarkable. Vasculature: The visualized abdominal aorta is normal in size and caliber. Abdominal and pelvic vessels demonstrate normal enhancement. Pelvic Organs: The prostate is enlarged, measuring 7.1 x 4.2 cm, with multi-se ptate near water attenuation cystic changes centrally concerning for prostatitis and prostatic abscess. The more superiorly oriented cystic focus measures up to 4.6 cm. Inferiorly, the near water attenuation cystic focus measures 3.0 cm. Musculoskeletal: No aggressive focal bony lesions, acute fractures or dislocation. IMPRESSION: 1. Enlarged prostate with central multi-septate cystic near water attenuation foci consistent with prostatitis and prostatic abscess. 2. Bilateral inguinal and retroperitoneal lymphadenopathy. 3. Retained colorectal stool. SEPSIS Sepsis Screen Date sepsis recognized/suspect: Aug 23, 2024 Time Sepsis recognized/suspect: 229 Recent Procedure: No On Antibiotic Therapy: Yes Respiratory Rate >20: Yes Heart Rate >90: No Temp<36 C (96.8 F) or >38.3 C: No SBP <90 or MAP <65 mmHG: No New Acute Mental Status Change: No Is the patient on CPAP, BIPAP,: No Physician Orders Consistent Carb(Ccho)Diabetes (08/23/24 Breakfast) Vital Signs Date Time Temp Pulse Resp B/P (MAP) Pulse Ox O2 Delivery O2 Flow Rate FiO2 08/23/24 04:00 98.3 98 14 128/76 (93) 97 98.3 08/23/24 02:30 98 Room Air* 0 21 08/23/24 02:00 101 14 126/78 (94) 98 08/23/24 01:05 94 14 118/77 08/23/24 00:36 97 14 109/75 08/23/24 00:30 97 14 109/75 (86) 97 08/22/24 23:30 100 13 121/81 (94) 97 08/22/24 22:30 99 15 130/81 (97) 98 Laboratory Tests Test 08/22/24 20:34 08/22/24 21:20 08/22/24 23:29 White Blood Count 11.8 10^3/uL (4.4-10.8) H Lactic Acid Level 2.5 mmol/L (0.4-2.0) *H 1.4 mmol/L (0.4-2.0) Medications Medications Dose Ordered Sig/Dion Route Start Time Stop Time Status Last Admin Dose Admin Insulin Human Regular 4 units ONCE ONCE SC 08/22/24 20:15 08/22/24 20:16 DC 08/22/24 21:08 4 UNITS Morphine Sulfate 4 mg ONCE ONCE IV 08/23/24 00:30 08/23/24 00:31 DC 08/23/24 00:36 4 MG Ondansetron HCl 4 mg ONCE ONCE IV 08/23/24 00:30 08/23/24 00:31 DC 08/23/24 00:36 4 MG Piperacillin Sod/ Tazobactam Sod 50 ml @ 50 mls/hr ONCE ONCE IV 08/22/24 21:15 08/22/24 22:14 DC 08/22/24 21:17 50 MLS/HR Sodium Chloride 1,000 ml @ 1,000 mls/hr Q1H ONCE IVB 08/22/24 20:15 08/22/24 21:14 DC 08/22/24 21:05 1,000 MLS/HR Assessment/Plan Assessment/Plan Acute abdominal pain Dehydration Leukocytosis, unspecified Prostatitis Prostatic abscess Type 2 diabetes mellitus with hyperglycemia Plan 1. Admit to telemetry unit 2. Breathing treatment 3. Pain control management 4. IV antibiotic management 5. Management of fluids and electrolytes 6. Consultation for hospitalist 7. Diagnostic test abdomen/pelvis CT 8. DVT prophylaxis on SCDs 9. Repeat labs CBC, CMP in a.m. 10. Home medication reviewed and reconciled 11. Continue with current medical management 12. Treatment plan discussed with patient and RN. Patient verbalized under standing. Plan discussed with: Patient, Other (RN) Problem List: (1) Acute abdominal pain (2) Dehydration (3) Leukocytosis, unspecified (4) Prostatitis (5) Prostatic abscess (6) Type 2 diabetes mellitus with hyperglycemia Date of Service: Aug 23, 2024 Billing Provider: MARIO NICHOLSON DNP Common Visit Codes: [id number] INP/OBS CARE (HIGH) MARIO NICHOLSON DNP Aug 23, 2024 06:20
[2024-08-23] MEDS: SODIUM CHLORIDE 0.9% 1,000 ML IV SCH (06:34)
[2024-08-23] MEDS: PANTOPRAZOLE 40 MG/10 ML VIAL INJ IV ONE (06:38)
[2024-08-23] MEDS: PIPERACILLIN-TAZOB 3.375GM 100 ML IV SCH (06:39)
[2024-08-23 07:08] LABS: Hematocrit 38.3 % (41.0-53.0); Hemoglobin 13.2 g/dL (13.5-17.5); Mean Corpuscular Hemoglobin 29.1 pg (28.0-32.0); Mean Corpuscular Volume 84.2 fL (80.0-100.0); Nucleated Red Blood Cells % 0.0 %
[2024-08-23 07:33] LABS: Albumin 4.1 g/dL (3.2-4.8); Anion Gap 8 (5-15); BUN/Creatinine Ratio 15.0 (10.0-20.0); Blood Urea Nitrogen 15 mg/dL (9-23); Calcium 10.1 mg/dL (8.7-10.4); Carbon Dioxide 31 mmol/L (20-31); Potassium 4.2 mmol/L (3.5-5.1)
[2024-08-23 07:37] LABS: Alanine Aminotransferase < 9 U/L (7-40); Alkaline Phosphatase 129 U/L (46-116); Bilirubin, Total 0.3 mg/dL (0.2-1.0); Chloride 97 mmol/L (98-107); Glucose 154 mg/dL (74-106); Sodium 136 mmol/L (136-145); Total Protein 8.4 g/dL (5.7-8.2)
[2024-08-23 07:40] VITALS: PULSE 97; RESP 13; O2SAT 91
[2024-08-23] MEDS: ACCU-CHEK COMFORT CURVE STRIP VI SCH (08:04)
[2024-08-23] MEDS: InsuLIN REG 1unit/0.01ml Soln (100units/ml) SC SCH (08:08)
[2024-08-23] MEDS: PANTOPRAZOLE 40 MG/10 ML VIAL INJ IV SCH (10:36)
[2024-08-24] VITALS (7 sets, daily range): BP systolic 109–138; BP diastolic 64–86; PULSE 86–111; RESP 12–20; TEMP 98.4–98.8; O2SAT 91–96
[2024-08-24] MEDS: MORPHINE SULFATE INJ 2 MG/ml SYRG IV PRN (02:21)
[2024-08-24] MEDS ORDERED: METF-372 PO (02:43)
[2024-08-24] MEDS ORDERED: EMPA1TAB3 PO (02:43)
[2024-08-24 07:05] LABS: Hematocrit 39.0 % (41.0-53.0); Hemoglobin 13.1 g/dL (13.5-17.5); Mean Corpuscular Hemoglobin 28.7 pg (28.0-32.0); Mean Corpuscular Volume 85.4 fL (80.0-100.0); Nucleated Red Blood Cells % 0.1 %
[2024-08-24 07:15] LABS: Albumin 3.9 g/dL (3.2-4.8); Anion Gap 9 (5-15); BUN/Creatinine Ratio 17.2 (10.0-20.0); Bilirubin, Total 0.3 mg/dL (0.2-1.0); Blood Urea Nitrogen 16 mg/dL (9-23); Calcium 9.8 mg/dL (8.7-10.4); Carbon Dioxide 30 mmol/L (20-31); Potassium 3.9 mmol/L (3.5-5.1); Total Protein 7.9 g/dL (5.7-8.2)
[2024-08-24 07:34] LABS: Alanine Aminotransferase < 9 U/L (7-40); Alkaline Phosphatase 121 U/L (46-116); Chloride 97 mmol/L (98-107); Glucose 122 mg/dL (74-106); Sodium 136 mmol/L (136-145)
[2024-08-24] MEDS: DOCUSATE SOD 100 MG CAP PO PRN (08:38)
[2024-08-24] MEDS: HYDROcodone-ACET 5/325MG TAB PO PRN (08:38)
--- NOTE | 2024-08-24 11:33 | DVHINCON2 ---
Date of service: Aug 24, 2024 Referring Physician hospitalist Reason for Consultation prostate abscess vs cyst History of Present Illness History Source: Patient, RN Notes, MD Notes, Old Records Exam Limitations: No limitations HPI 39 yo male with hx of schizophrenia, bipolar disorder, poorly controlled diabetes, GERD, methamphetamine abuse abd past osteomyelitis of the toe who presents with acute groin pain and incontinence of urine. He has been having diarrhea. Home Meds Active Scripts Naproxen (Naproxen) 375 Mg Tab, 1 TAB PO TID for 5 Days, #15 TAB 5 Refills Prov:JULIO MANZO MD 07/19/24 Cefdinir (Cefdinir) 300 Mg Cap, 300 MG PO BID for 10 Days, #20 CAP Prov:JULIO MANZO MD 07/19/24 Ondansetron Odt 4MG Tab (ZOFRAN PO) 4 Mg Tb, 4 MG PO TID for 30 Days, #30 TAB ODT TAB-DISSOLVE IN MOUTH, THEN SWALLOW Prov:AHMET GANDHI MD 08/08/23 Pantoprazole Sodium Sesquihydr (Protonix) 40 Mg Tab, 40 MG PO DAILY PRN for 30 Days, #30 TAB Prov:AHMET GANDHI MD 08/08/23 Reported Medications Empagliflozin (Jardiance) 25 Mg Tab, 1 TAB PO DAILY 08/24/24 Metformin Hydrochloride (Metformin Hcl) 1,000 Mg Tab, 1 TAB PO BID 08/24/24 Atorvastatin Calcium (Lipitor) 10 Mg Tab, 1 TAB PO QPM, #90 TAB 1 Refill 05/10/23 Aripiprazole (Aripiprazole) 10 Mg Tab, 1 TAB PO DAILY 05/10/23 Escitalopram Oxalate (ESCITALOPRAM OXALATE) 10 Mg Tab, 1 TAB PO DAILY 05/10/23 Metformin Hydrochloride (Metformin Hcl) 500 Mg Tab, 1000 MG PO BID 02/18/11 Past Medical History Endocrine: NIDDM Patient Family History: Family history: Diabetes mellitus GRANDMOTHER (UNK) Drugs: Amphetimines Review of Systems Gastrointestinal: Abdominal Pain Genitourinary: Pain H&P Exam Vital Signs Vital Signs Date Time Temp Pulse Resp B/P (MAP) Pulse Ox O2 Delivery O2 Flow Rate FiO2 08/24/24 09:00 98.7 100 18 110/64 (79) 96 98.7 08/24/24 07:30 Room Air* 0 21 Labs/Xrays [facility] [id number] [facility] [id number] Ph: [phone] DIAGNOSTIC IMAGING Diagnostic Imaging Report : [id number] Signed PATIENT: CLAY ESCALANTET: [id number] UNIT: [id number] : 1985 LOC: ER ROOM / BED: / AGE / SEX: 39 / M ADM STATUS: REG ER SERVICE 11 ORDERING PHYSICIAN: MARCOS WEAVER MD PROCEDURE(s): ABPLIV - CT AB PEL WITH IV CON ONLY REASON: abd pain ORDER NUMBER(s): [id number], ACCESSION NUMBER(s): [id number] Exam: CT CT AB PEL WITH IV CON ONLY History: abd pain COMPARISON: None Technique: Multidetector spiral CT of the abdomen and pelvis was performed from lung bases to pubic symphysis. Intravenous contrast was administered during this examination. Portal venous imaging was obtained. Axial, coronal and sagittal multiplanar reformats were performed by the technologist on a separate workstation. Radiation Dose : 1. Abdomen/Pelvis: CTDIvol 11.36 mGy, DLP 816.82 mGy*cm. CONTRAST: Type of contrast: Omniscan 300 Contrast injected: 100 ml Findings: Lung Bases: No acute or significant lung base finding. Normal heart size. No pleural or pericardial effusion. Liver: The liver is enlarged, measuring 22.5 cm in craniocaudal dimension. No focal lesions. Normal hepatic vascular enhancement. Gallbladder and Biliary Tree: Unremarkable Spleen: Unremarkable Pancreas: The pancreas is normal in appearance without focal lesions or abnormal enhancement. Adrenal Glands: Unremarkable Kidneys: No hydronephrosis. Bladder: Collapsed, containing a Kan catheter. Bowel: The stomach is grossly normal in appearance. Retained colorectal stool. Small bowel and colon are otherwise normal in caliber and distribution. The appendix is normal. Ascites: Absent Lymphadenopathy: Bilateral inguinal lymph node enlargement measures up to 1.9 cm on the left and 1.4 cm on the right. Shotty retroperitoneal lymphadenopathy noted. Abdominal Wall and Mesentery: Unremarkable. Vasculature: The visualized abdominal aorta is normal in size and caliber. Abdominal and pelvic vessels demonstrate normal enhancement. Pelvic Organs: The prostate is enlarged, measuring 7.1 x 4.2 cm, with multi- septate near water attenuation cystic changes centrally concerning for prostatitis and prostatic abscess. The more superiorly oriented cystic focus measures up to 4.6 cm. Inferiorly, the near water attenuation cystic focus measures 3.0 cm. Musculoskeletal: No aggressive focal bony lesions, acute fractures or d islocation. IMPRESSION: 1. Enlarged prostate with central multi-septate cystic near water attenuation foci consistent with prostatitis and prostatic abscess. 2. Bilateral inguinal and retroperitoneal lymphadenopathy. 3. Retained colorectal stool. Radiation optimization: All CT scans at this facility use at least one of these dose optimization techniques: automated exposure control mA and/or kV adjustment per patient size (includes targeted exams where dose is matched to clinical indication) or iterative reconstruction. ATED BY: JAMAL ZAVALETA MD DICTATED DATE/TIME: 08/23/24523 SIGNED BY: JAMAL ZAVALETA MD SIGNED DATE/TIME: 08/23/24523 CC: Labs Test 08/24/24 08:14 08/24/24 05:27 08/22/24 23:29 08/22/24 23:05 Range/Units POC Glucose 144 H 70-106 mg/dl White Blood Count 13.2 H 4.4-10.8 10^3/uL Red Blood Count 4.56 4.5-5.90 10^6/uL Hemoglobin 13.1 L 13.5-17.5 g/dL Hematocrit 39.0 L 41.0-53.0 % Mean Corpuscular Volume 85.4 80.0-100.0 fL Mean Corpuscular Hemoglobin 28.7 28.0-32.0 pg Mean Corpuscular Hemoglobin Concent 33.6 32.0-36.0 g/dL Red Cell Distribution Width 13.2 11.8-14.3 % Platelet Count 286 140-450 10^3/uL Mean Platelet Volume 7.2 6.9-10.8 fL Neutrophils (%) (Auto) 73.8 37.0-80.0 % Lymphocytes (%) (Auto) 14.7 10.0-50.0 % Monocytes (%) (Auto) 9.9 0.0-12.0 % Eosinophils (%) (Auto) 1.3 0.0-7.0 % Basophils (%) (Auto) 0.3 0.0-2.0 % Neutrophils # (Auto) 9.7 H 1.6-8.6 10 ^3/uL Lymphocytes # (Auto) 1.9 0.4-5.4 10 ^3/uL Monocytes # (Auto) 1.3 0-1.3 10 ^3/uL Eosinophils # (Auto) 0.2 0-0.8 10 ^3/uL Basophils # (Auto) 0 0-0.2 10 ^3/uL Nucleated Red Blood Cells 0.1 % Sodium Level 136 136-145 mmol/L Potassium Level 3.9 3.5-5.1 mmol/L Chloride Level 97 L 98-107 mmol/L Carbon Dioxide Level 30 20-31 mmol/L Anion Gap 9 5-15 Blood Urea Nitrogen 16 9-23 mg/dL Creatinine 0.93 0.700-1.30 mg/dL Glomerular Filtration Rate Calc 106 >90 mL/min BUN/Creatinine Ratio 17.2 10.0-20.0 Serum Glucose 122 H 74-106 mg/dL Calcium Level 9.8 8.7-10.4 mg/dL Total Bilirubin 0.3 0.2-1.0 mg/dL Aspartate Amino Transferase (AST) 9 L 13-40 U/L Alanine Aminotransferase (ALT) < 9 7-40 U/L Alkaline Phosphatase 121 H 46-116 U/L Total Protein 7.9 5.7-8.2 g/dL Albumin 3.9 3.2-4.8 g/dL Lactic Acid Level 1.4 0.4-2.0 mmol/L Urine Color Light-yellow Yellow Urine Clarity Clear Clear Urine pH 5.5 5.0-9.0 Urine Specific [place] 1.041 H 1.001-1.035 Urine Protein Negative Negative Urine Ketones 1+ H Negative Urine Blood Negative Negative /uL Urine Nitrite Negative Negative Urine Bilirubin Negative Negative Urine Urobilinogen Normal Negative mg/dL Urine Leukocyte Esterase Negative Negative /uL Urine RBC 2 0 - 3 /hpf Urine Microscopic WBC 24 H 0-3 /HPF Urine Squamous Epithelial Cells None seen <5 /hpf Urine Bacteria None seen None Seen /hpf Urine Glucose 4+ H Normal mg/dL Test 08/22/24 20:34 Range/Units Lipase 36 12-53 U/L Microbiology Date/Time Source Procedure Growth Status 08/22/24 21:20 Blood Blood Culture - Preliminary NO GROWTH AFTER 24 HOURS OF INCUBATION. Resulted Assessment/Plan Problem List: (1) Prostatic abscess (2) Acute epididymitis (3) Methamphetamine abuse (4) Substance abuse Plan continue broad spectrum abx Transurethral unroofing of prostate abscess to be arranged Plan discussed with: Patient [facility] POLO NP Aug 24, 2024 11:33
--- NOTE | 2024-08-24 15:42 | DVHPN2 ---
Subjective Seen in bed mild pain Reviewed: H&P, Labs Changes from previous H/P or p: No Changes Eyes: No Pain, No Vision change, No Conjunctivae inflammation, No Eyelid inflammation, No Other, No Redness ENT: No Ear pain, No Ear discharge, No Nose pain, No Nose discharge, No Nose congestion, No Mouth pain, No Mouth swelling, No Throat pain, No Throat swelling, No Other Cardiovascular: No Chest Pain, No Palpitations, No Orthopnea, No Paroxysmal Noc. Dyspnea, No Edema, No Lt Headedness, No Other Respiratory: No Cough, No Dry, No Shortness of breath, No SOB with excertion, No Wheezing, No Hemoptysis, No Pleuritic Pain, No Sputum, No Other Gastrointestinal: No Nausea, No Vomiting; Abdominal Pain; No Diarrhea; C onstipation; No Melena, No Hematochezia, No Other Genitourinary: No Dysuria, No Frequency, No Incontinence, No Hematuria, No Retention, No Other Musculoskeletal: No other, No neck pain, No shoulder pain, No arm pain, No back pain, No hand pain, No leg pain, No foot pain Skin: No Rash, No Lesions, No Jaundice, No Bruising, No Other Objective Vitals Vital Signs Date Time Temp Pulse Resp B/P (MAP) Pulse Ox O2 Delivery O2 Flow Rate FiO2 08/24/24 12:33 98.5 92 20 109/66 (80) 92 98.5 08/24/24 07:30 Room Air* 0 21 Intake/Output Intake and Output 08/24/24 07:00 Intake Total 1340.66 ml Output Total 2150 ml Balance -809.34 ml Intake Oral 450 ml IV Total 890.66 ml Output Urine Total 2150 ml General Appearance: Alert, Oriented X3 Lungs: Clear to auscultation Cardiovascular: Regular rate, Normal S1, Normal S2 Medications Current Medications Medications Dose Ordered Sig/Dion Route Start Time Stop Time Status Last Admin Dose Admin Piperacillin Sod/ Tazobactam Sod 100 ml @ 25 mls/hr Q8HR IV 08/23/24 06:00 08/24/24 12:51 25 MLS/HR Pantoprazole Sodium 40 mg DAILY IV 08/23/24 10:00 08/24/24 08:38 40 MG Diagnostic Test (Pha) 1 strip IQ4HR 08/23/24 08:00 08/24/24 12:51 1 STRIP Insulin Human Regular IQ4HR SC 08/23/24 08:00 08/24/24 12:51 6 UNITS Dextrose 50 ml UD PRN IV 08/23/24 06:00 Sodium Chloride 1,000 ml @ 60 mls/hr [id number] IV 08/23/24 06:00 08/23/24 22:44 60 MLS/HR Acetaminophen/ Hydrocodone Bitart 1 tab Q4HP PRN PO 08/23/24 06:00 08/24/24 08:38 1 TAB Ondansetron HCl 4 mg Q4HP PRN IV 08/23/24 06:00 Docusate Sodium 100 mg BIDPRN PRN PO 08/23/24 06:00 08/24/24 08:38 100 MG Acetaminophen 650 mg Q6HP PRN PO 08/23/24 06:00 Morphine Sulfate 2 mg Q4HPRN PRN IV 08/23/24 06:00 08/24/24 02:21 2 MG Nitroglycerin 0.4 mg Q5MINP PRN SL 08/23/24 06:00 Morphine Sulfate 2 mg Q30M PRN IV 08/23/24 06:00 Laboratory Results Laboratory Tests 08/24/24 05:27 Chemistry Test 08/24/24 05:27 Albumin 3.9 g/dL (3.2-4.8) Calcium Level 9.8 mg/dL (8.7-10.4) Total Protein 7.9 g/dL (5.7-8.2) LFT Test 08/24/24 05:27 Alanine Aminotransferase (ALT) < 9 U/L (7-40) Alkaline Phosphatase 121 U/L (46-116) H Aspartate Amino Transferase (AST) 9 U/L (13-40) L Total Bilirubin 0.3 mg/dL (0.2-1.0) Urinalysis Test 08/22/24 23:05 Urine Color Light-yellow (Yellow) Urine Clarity Clear (Clear) Urine pH 5.5 (5.0-9.0) Urine Specific [place] 1.041 (1.001-1.035) Urine Protein Negative (Negative) Urine Ketones 1+ (Negative) H Urine Blood Negative /uL (Negative) Urine Nitrite Negative (Negative) Urine Bilirubin Negative (Negative) Urine Urobilinogen Normal mg/dL (Negative) Urine Leukocyte Esterase Negative /uL (Negative) Urine RBC 2 /hpf (0 - 3) Urine Microscopic WBC 24 /HPF (0-3) H Urine Squamous Epithelial Cells None seen /hpf (<5) Urine Bacteria None seen /hpf (None Seen) Urine Glucose 4+ mg/dL (Normal) H Microbiology Microbiology Date/Time Source Procedure Growth Status 08/24/24 03:40 Nose MRSA Screen - Final Complete 08/22/24 21:20 Blood Blood Culture - Preliminary NO GROWTH AFTER 24 HOURS OF INCUBATION. Resulted Assessment/Plan Assessment/Plan Acute abdominal pain Dehydration Leukocytosis, unspecified Prostatitis Prostatic abscess Type 2 diabetes mellitus with hyperglycemia Continue IV abx Urology consulted blood and urine cx pending Plan discussed with: Patient My Orders Orders - EDUARDO YAÑEZ MD Procedure Category Date Status Time * Urology Consult CONS 08/24/24 Transmitted 10:36 Consistent DIET 08/24/24 Transmitted Carb([facility])Diabetes Lunch Date of Service: Aug 24, 2024 Billing Provider: EDUARDO YAÑEZ MD Common Visit Codes: [id number] INP/OBS CARE(HIGH) EDUARDO YAÑEZ MD Aug 24, 2024 15:42
== END 2024-08-24 19:40 | disposition left against medical advice (07) | DRG 728 ==
LOC: EDBD 20:01 → ER 20:01 → OVERFLOW 08-23 05:59 → TELE-EAST 08-23 23:57
PROVIDERS: ADMIT Nurse Practitioner Family; ATTEND Nurse Practitioner Family
DX: N41.0 Acute prostatitis (principal); N41.2 Abscess of prostate; N45.1 Epididymitis; E11.65 Type 2 diabetes mellitus with hyperglycemia; E86.0 Dehydration; F15.10 Other stimulant abuse, uncomplicated; K59.00 Constipation, unspecified; F20.9 Schizophrenia, unspecified; F31.9 Bipolar disorder, unspecified; K21.9 Gastro-esophageal reflux disease without esophagitis; D72.829 Elevated white blood cell count, unspecified; Z53.29 Procedure and treatment not carried out because of patient's decision for other reasons; N40.0 Benign prostatic hyperplasia without lower urinary tract symptoms; Z79.84 Long term (current) use of oral hypoglycemic drugs; Z79.899 Other long term (current) drug therapy; Z83.3 Family history of diabetes mellitus
CPT/HCPCS: 36415; 74177; 80053; 81001; 82962; 83605; 83690; 85025; 87040; 87081; 96365; 96372; G0378; J1815; J2405; J2470; J2543

== ENCOUNTER 2024-10-02 20:27 | Inpatient (IN) | payer MEDICARE, MEDICAID ==
[~2024-10-02] VITALS: Ht 200.7 cm; Wt 85.4 kg
[~2024-10-02 20:27] MED LIST changes: +EMPA1TAB3 PO; +INSUINJ37 SC; +METF-372 PO; +SEMA1INJ2 SC
[2024-10-02] MEDS: IBUPROFEN 600 MG TAB PO ONE (20:44)
[2024-10-02] MEDS ORDERED: SODIUM CHLORIDE 0.9% 1,000 ML IV ONE ×2 (21:00)
--- NOTE | 2024-10-02 21:16 | ED.PDOC ---
History of Present Illness HPI Comments HPI: 39y M who presents to the ED via EMS for chief complaint of fever - per EMS, pt spouse called after pt had been having fever all day today - EMS arrived on scene and noted pt had fever of 103 F - pt told EMS he took 2 Tylenol of unknown dose 3 hours prior to ED arrival - EMS checked vitals and noted BP of 110/71 and heart rate of 135 and pt was given 250 ml fluids and brought to the ED - pt has noted history of DM 2 and has accu check of 334 in the ED - pt also presents with Kan in place due to recent prostate surgery which pt states he does not recall why he had surgery - EMS notes pt has been to and other local ED departments nearby for same complaints but has eloped before being evaluated for the past few days - pt now in the ED, is otherwise alert and oriented x 4 - pt now in the ED, has noted temp of 103.7 F and heart rate of 137 with otherwise stable vitals - pt states he did smoke METH yesterday - pt denies any other symptoms at this time Past Medical History: DM, MRSA of urine, methamphetamine abuse Past Surgical History: prostate surgery Social History: Denies ETOH, smoking, and endorses drug use(METH). Medications: jiardiance, metformin Allergies: nkda HPI: Poor Historian. REVIEW OF SYSTEMS: CONSTITUTIONAL: Denies acute: diaphoresis, chills, HEAD: Denies acute: headache, photophobia Eyes: Denies acute: Double vision, vision loss, eye pain, eye discharge. EARS: Denies acute: tinnitus, hearing loss, ear discharge, ear pain, THROAT: Denies acute: sore throat, swelling, difficulty swallowing , pain with swallo wing, change in voice. NECK: Denies acute: neck pain, neck swelling, stiff neck. HEART: Denies acute : chest pain, palpitations, LUNGS: Denies acute: SOB, wheezing, cough, hemoptysis ABDOMEN: Denies acute: abdominal pain, Nausea, Vomiting, diarrhea, melena , hematemesis, hematochezia SKIN: Denies acute: rash, redness, lesions, itchiness. EXTREMITIES: Denies acute: calf pain, numbness, tingling, weakness, denies pain in extremity. Denies acute: Low back pain. Neuro: Denies acute: focal neurological deficit, motor or sensory focal neurological deficit, tremors, seizure like activity, confusion, dizziness, change in mental status, loss of bowel or bladder function, cauda equina like symptoms. : Denies acute: dysuria, hematuria, flank pain, increase in urinary frequency. PSYCH: Denies acute: hallucination, suicidal ideation, homicidal ideation. PHYSICAL EXAM: General: -----mild---acute distress, awake and alert. Head: normocephalic, atraumatic. Neck: supple, trachea is midline, no swelling. Throat: Normal phonation. Eyes:, no erythema, no purulent discharge, no proptosis, no icterus. Heart: regular tachycardia in the setting of fever. no significant murmur appreciated. Lungs: no apparent respiratory distress, Able to speak in full sentences. No wheezing, no rhonchi, no crackles. No stridors Clear to auscultation bilaterally. Abdomen: non tender to palpation, non distended, soft, no guarding, no rebound, + bowel sounds. Kan catheter in place. Normal color urine in the Kan bag. Neuro: Awake, Alert, oriented to name, self, situation, follows commands GCS=15. Speech is normal. Skin: no petechia, no purpura, no cyanosis, non-pale, not jaundice. Lower extremities: --no - Pitting edema no deformity, no focal swelling, no calf TTP. Makes eye contact. moves all four extremities. Face: no apparent facial droop. ED COURSE: DISCLAIMER: This medical document was created using an electronic medical record system with voice recognition software and computerized dictation system. Although this document has been carefully reviewed, there might still be some phonetic and typographical errors. Occasional wrong-word or "sound-alike" substitutions may have occurred due to the inherent limitations of voice recognition software. These areas are purely typographical due to imperfections of the software programs and do not reflect any compromise in the patient's medical care. Please read the chart carefully and recognize, using context, where these substitutions have occurred. Chief Complaint: Fever Time Seen by MD: 21:00 Reviewed Notes: Clinical Systems Analyst Notes, Medications Information Source: Patient, Emergency Med Personnel Mode of Arrival: EMS Physical Exam General Appearance: Other (a) HEENT: Other (a) Neck: Other (a) Respiratory: Other (a) Cardiovascular: Other (a) Breast Exam: Other (a) Gastrointestinal: Other (a) Genitalia: Other (a) Pelvic: Other (a) Rectal: Other (a) Extremities: Other (a) Neurologic: Other Cerebellar Function: Other (a) Reflexes: Other (a) Skin: Other (a) Lymphatic: Other (a) Was a procedure done? Was a procedure done?: No Fever Differential Dx Differential Diagnosis: Dehydration, Electrolyte Imbalance, Influenza, Men ingitis, Pneumonia, Pneumonitis, Pulmonary Embolus, Pyelonephritis, Respiratory Failure, Sepsis, UTI, Viral Syndrome, Other X-Ray, Labs, Meds, VS Vital Signs Date Time Temp Pulse Resp B/P (MAP) Pulse Ox O2 Delivery O2 Flow Rate FiO2 10/02/24 23:09 97.3 96 15 97/60 (72) 96 97.3 10/02/24 23:09 99 Nasal Cannula* 2 28 10/02/24 20:44 103.2 10/02/24 20:41 133 10/02/24 20:40 103.2 137 16 110/71 95 103.2 Lab Test 10/02/24 21:24 10/02/24 03:01 Range/Units White Blood Count 6.1 4.4-10.8 10^3/uL Red Blood Count 3.41 L 4.5-5.90 10^6/uL Hemoglobin 9.5 L 13.5-17.5 g/dL Hematocrit 28.7 L 41.0-53.0 % Mean Corpuscular Volume 84.1 80.0-100.0 fL Mean Corpuscular Hemoglobin 27.7 L 28.0-32.0 pg Mean Corpuscular Hemoglobin Concent 32.9 32.0-36.0 g/dL Red Cell Distribution Width 16.6 H 11.8-14.3 % Platelet Count 203 140-450 10^3/uL Mean Platelet Volume 9.1 6.9-10.8 fL Neutrophils (%) (Auto) 37.0-80.0 % Lymphocytes (%) (Auto) 10.0-50.0 % Monocytes (%) (Auto) 0.0-12.0 % Basophils (%) (Auto) 0.0-2.0 % Neutrophils # (Auto) 1.6-8.6 10 ^3/uL Lymphocytes # (Auto) 0.4-5.4 10 ^3/uL Monocytes # (Auto) 0-1.3 10 ^3/uL Differential Total Cells Counted 100.0 100 Neutrophils % (Manual) 78 37.0-80.0 Band Neutrophils % (Manual) 8 Lymphocytes % (Manual) 9 L 10.0-50.0 Monocytes % (Manual) 4 0-12 Eosinophils % (Manual) 0 0-7 Basophils % (Manual) 0 0.0-2.0 Metamyelocytes % (manual) 1 Myelocytes % (Manual) 0 Promyelocytes % (Manual) 0 Blast Cells % (Manual) 0 Reactive Lymphocytes 0 Platelet Estimate Adequate Prothrombin Time 12.3 H 9.3-11.8 sec Prothrombin Time INR 1.18 H 0.9-1.15 Activated Partial Thromboplast Time 34.4 24.5-34.5 SEC Sodium Level 130 L 136-145 mmol/L Potassium Level 4.0 3.5-5.1 mmol/L Chloride Level 95 L 98-107 mmol/L Carbon Dioxide Level 22 20-31 mmol/L Anion Gap 13 5-15 Blood Urea Nitrogen 23 9-23 mg/dL Creatinine 1.12 0.700-1.30 mg/dL Glomerular Filtration Rate Calc 85 >90 mL/min BUN/Creatinine Ratio 20.5 H 10.0-20.0 Serum Glucose 382 H 74-106 mg/dL Lactic Acid Level 1.3 0.4-2.0 mmol/L Calcium Level 8.5 L 8.7-10.4 mg/dL Total Bilirubin 0.3 0.2-1.0 mg/dL Aspartate Amino Transferase (AST) 25 13-40 U/L Alanine Aminotransferase (ALT) 14 7-40 U/L Alkaline Phosphatase 121 H 46-116 U/L Total Protein 7.1 5.7-8.2 g/dL Albumin 3.1 L 3.2-4.8 g/dL Urine Color Colorless Yellow Urine Clarity Clear Clear Urine pH 5.0 5.0-9.0 Urine Specific [place] 1.020 1.001-1.035 Urine Protein Negative Negative Urine Ketones 1+ H Negative Urine Blood Trace H Negative /uL Urine Nitrite Negative Negative Urine Bilirubin Negative Negative Urine Urobilinogen Normal Negative mg/dL Urine Leukocyte Esterase Trace Negative /uL Urine RBC 1 0 - 3 /hpf Urine Microscopic WBC 13 H 0-3 /HPF Urine Squamous Epithelial Cells None seen <5 /hpf Urine Bacteria None seen None Seen /hpf Urine Glucose 4+ H Normal mg/dL Microbiology Date/Time Source Procedure Growth Status 10/02/24 21:27 Blood Blood Culture - Preliminary Resulted 10/02/24 21:17 Blood Blood Culture - Preliminary Resulted Time of 1ST Reevaluation: 00:00 Reevaluation 1ST: Patient Education/Counseling: Diagnosis, Treatment Family Education/Counseling: No Family Present Comments MDM: patient presented with the above HPI.--fever----workup was initiated. patient was found with the above mentioned diagnosis. Sepsis protocol was initiated with fluid resuscitation IV antibiotics. the following medications were ordered: please refer to order lists of meds and tests obtained by myself Dr. Mercado. Patient ED course and VS have been stabilized. Patient has been reassessed in the ED and remained in a stable condition. Pertinent incidental findings were discussed with the patient and/or family. Patient/family voices understanding and is agreeable with plan. Patient has been observed in the ED adequate length of time to insure improvement/stability. Escalation of care considered: Consideration of escalation to observation or admission Patient was ADMITTED to the medicine team for further evaluation and treatment of their presentation. All the reports of any imaging studies that were ordered by myself were reviewed by myself. SEPSIS Sepsis Screen Date sepsis recognized/suspect: Oct 02, 2024 Time Sepsis recognized/suspect: 2034 Recent Procedure: Yes On Antibiotic Therapy: No Respiratory Rate >20: No Heart Rate >90: Yes Temp<36 C (96.8 F) or >38.3 C: Yes SBP <90 or MAP <65 mmHG: No New Acute Mental Status Change: No Is the patient on CPAP, BIPAP,: No Physician Orders Electrocardigram (10/02/24 20:49) Chest Portable (10/02/24 20:51) Accucheck (10/02/24 20:51) Blood Culture (10/02/24 20:51) Notify Md If Map <65 Or Bp<90 (10/02/24 20:51) If Map<65 Start Vasopressor (10/02/24 20:51) Sepsis Reassesment After Fluid (10/02/24 21:51) Ct Ab Pel Wo Con-No Oral Or Iv (10/02/24 22:34) Atorvastatin (Lipitor) (10/03/24 22:00) Allergies (10/02/24 22:54) Code Status (10/02/24 22:54) Sodium Chloride 0.9% (10/02/24 23:00) Oxygen Per Hour (10/02/24 22:54) Hydrocodone-Acet 5/325mg Tab ([place] 5/32 (10/02/24 23:00) Ondansetron Hcl (Zofran) (10/02/24 23:00) Docusate Sodium Capsule (Colace Capsule) (10/02/24 23:00) Condition: Serious (10/02/24 22:54) Acetaminophen Tablet (Tylenol Tablet) (10/02/24 23:00) Bedrest With Bathroom Privileg (10/02/24 22:54) Sequential Compression Device (10/02/24 ) Cefepime 1gm/ 50ml (Maxipime 1gm/50ml) (10/03/24 03:30) Vital Signs Date Time Temp Pulse Resp B/P (MAP) Pulse Ox O2 Delivery O2 Flow Rate FiO2 10/02/24 23:09 97.3 96 15 97/60 (72) 96 97.3 10/02/24 23:09 99 Nasal Cannula* 2 28 10/02/24 20:44 103.2 10/02/24 20:41 133 10/02/24 20:40 103.2 137 16 110/71 95 103.2 Laboratory Tests Test 10/02/24 21:24 Lactic Acid Level 1.3 mmol/L (0.4-2.0) White Blood Count 6.1 10^3/uL (4.4-10.8) Departure 1 Departure Time of Disposition: 21:42 Impression: Primary Impression: Sepsis Additional Impressions: Methamphetamine abuse Anemia UTI (urinary tract infection) Disposition: ADMITTED INPATIENT Admit to: Tele Condition: Guarded Discharged With: Self Critical Care Note Critical Care Time?: Yes (35 min-critical care time only) Stability Stability form required: No Heart Score Heart Score: Heart Score Response (Comments) Value History N/A 0 EKG N/A 0 Age N/A 0 Risk Factors N/A 0 Troponin N/A 0 Total 0 I personally scribed for NOAM MERCADO DO ([facility]) on 10/02/24 at 21:16. Electronically submitted by Benjamin [facility] I personally scribed for NOAM MERCADO DO ([facility]) on 10/02/24 at 21:20. Electronically submitted by Benjamin [facility] ([facility] I personally scribed for NOAM MERCADO DO ([facility]) on 10/02/24 at 21:29. Electronically submitted by Benjamin Joseph ([facility] NOAM MERCADO DO Oct 02, 2024 21:16
[2024-10-02 22:22] LABS: Hematocrit 28.7 % (41.0-53.0); Hemoglobin 9.5 g/dL (13.5-17.5); Mean Corpuscular Hemoglobin 27.7 pg (28.0-32.0); Mean Corpuscular Volume 84.1 fL (80.0-100.0)
[2024-10-02 22:30] LABS: Alanine Aminotransferase 14 U/L (7-40); Anion Gap 13 (5-15); BUN/Creatinine Ratio 20.5 (10.0-20.0); Blood Urea Nitrogen 23 mg/dL (9-23); Carbon Dioxide 22 mmol/L (20-31); INR 1.18 (0.9-1.15); Partial Thromboplastin Time 34.4 SEC (24.5-34.5); Potassium 4.0 mmol/L (3.5-5.1); Prothrombin Time 12.3 sec (9.3-11.8); Total Protein 7.1 g/dL (5.7-8.2)
[2024-10-02 22:32] LABS: Albumin 3.1 g/dL (3.2-4.8); Alkaline Phosphatase 121 U/L (46-116); Bilirubin, Total 0.3 mg/dL (0.2-1.0); Calcium 8.5 mg/dL (8.7-10.4); Chloride 95 mmol/L (98-107); Glucose 382 mg/dL (74-106); Sodium 130 mmol/L (136-145)
--- NOTE | 2024-10-02 22:35 | DVH ---
CHEST RADIOGRAPH Indication: fever Technique: 1 view Comparison: None FINDINGS: Lines and Tubes: None Lungs/Pleura: No focal consolidation, pleural effusion or pneumothorax. Cardiomediastinum: Unremarkable. Other: No acute osseous abnormality. IMPRESSION: 1. No acute cardiopulmonary abnormality.
[2024-10-02 22:41] LABS: Total Cells Counted 100.0 (100)
[2024-10-02] MEDS ORDERED: PIPERACILLIN-TAZOB 3.375GM 100 ML IV ONE (22:45)
[2024-10-02] MEDS ORDERED: DEXTROSE (50%) 50ML SYRG IV PRN (23:00)
[2024-10-02] MEDS ORDERED: ONDANSETRON HCL 4 MG/2 ML VIAL IV PRN (23:00)
[2024-10-02] MEDS ORDERED: DOCUSATE SOD 100 MG CAP PO PRN (23:00)
[2024-10-02 23:09] VITALS: O2SAT 99
[2024-10-02] MEDS: LACTATED RINGER S IV ONE (23:31)
--- NOTE | 2024-10-02 23:33 | DVH ---
Exam: CT CT AB PEL WO CON-NO ORAL OR IV History: fever Comparison Study: None Technique: Multidetector spiral CT of the abdomen was performed from lung bases to pubic symphysis. I maging was performed without IV contrast. Axial, coronal and sagittal multiplanar reformats were obta ined from the axial data set by the technologist. Radiation Dose : 1. Abdomen/Pelvis: CTDIvol 14.41 mGy, DLP 3.92 mGy*cm. Findings: Evaluation of solid organs is limited due to lack of intravenous contrast use. Assessment is further limited by streak artifact from arm down positioning, and lack of peritoneal fat. Lower Chest: No acute findings. Liver: Unremarkable. Gallbladder and Biliary Tree: Unremarkable Pancreas: Unremarkable. Spleen: Unremarkable. Adrenal Glands: Unremarkable. Kidneys/Ureters: No urinary stone or obstruction. Bladder: Decompressed around a Kan catheter with circumferential wall prominence. Pelvic Organs: Hypodense appearance of the prostate, which appears mildly enlarged. Bowel: Circumferential rectal wall thickening. No other evidence of wall thickening, or obstruction. Normal appendix. Vasculature: Mild atherosclerosis. Lymphadenopathy: Bilaterally enlarged inguinal lymph nodes. No obvious intraperitoneal or retroperito bharti adenopathy. Peritoneum: No ascites, free air, or fluid collection. Abdominal Wall: Anasarca. Musculoskeletal: Erosive change of the left anterior superior sacroiliac joint with heterogeneous gas and fluid contents extending within the left iliopsoas muscles, and within external rotator muscles. Lucent lesion of L3 appears benign. IMPRESSION: 1. Limited exam. 2. Evidence of left sacroiliitis with gas and fluid extending into left pelvic muscles likely represe nting abscess. Suboptimal characterization due to lack of contrast. Bilateral inguinal adenopathy is likely reactive. 3. Rectal wall thickening, correlate for symptoms of proctitis. 4. Kan catheter decompressed urinary bladder with wall thickening. Hypodense appearance of the mil dly enlarged prostate. Cystitis and prostatitis or possible. Radiation optimization: All CT scans at this facility use at least one of these dose optimization antwan hniques: automated exposure control mA and/or kV adjustment per patient size (includes targeted exam s where dose is matched to clinical indication) or iterative reconstruction.
--- NOTE | 2024-10-02 23:34 | DVHHP2 ---
History of Present Illness Reason for Visit: Sepsis, unspecified organism History of Present Illness The patient is a 39-year-old male with past medical history of diabetes mellitus, MRSA of the urine, hyperlipidemia, and methamphetamine abuse presented to [facility] ED with complaint of fever. Patient reports he has been experiencing fever, associated with generalized weakness, abdominal pain, presents with Kan catheter in place due to recent prostate surgery. Patient was seen and evaluated in the ED, laboratory data shows WBC 6.1, hemoglobin 9.5, hematocrit 28.7, platelets 203, sodium 130, potassium 4.0, BUN 23, creatinine 1.12, glucose 382, calcium 8.5, albumin 3.1, blood pressure 110/70, heart rate 136 trending down to 96, temperature 103.2 F trending down to 97.6 F, O2 saturation 95% on room air. Abdomen/pelvis CT revealing evidence of left sacroiliitis with gas and fluid extending into left pelvic muscles likely representing abscess; rectal wall thickening correlate for symptoms of proctitis; Kan catheter decompressed urinary bladder with wall thickening; hypodense appearance of the mildly enlarged prostate, cystitis and prostatitis or possible. Patient was started on IV antibiotic regimen vancomycin, please see medication orders section in the computer. On my assessment, patient denied chest pain, no headache, no dizziness, no diaphoresis, no shortness of breaths, no nausea, no vomiting, no fever, no chills. Patient was admitted for further evaluation and medical management. Past Medical History DM, HLD, MRSA of urine, Methamphetamine abuse Past Surgical History Prostate surgery Family History Reviewed, noncontributory to the management of this case. Past Social History The patient lives at home, denies smoking, alcohol or illicit drugs abuse. Review of Systems Constitutional: Yes: Fever, Weakness; No: Chills, Sweats, Malaise, Other Eyes: No: Pain, Vision change, Conjunctivae inflammation, Eyelid inflammation, Other, Redness ENT: No: Ear pain, Ear discharge, Nose pain, Nose discharge, Nose congestion, Mouth pain, Mouth swelling, Throat pain, Throat swelling, Other Respiratory: No: Cough, Dry, Shortness of breath, SOB with excertion, Wheezing, Hemoptysis, Pleuritic Pain, Sputum, Wheezing, Other Cardiovascular: No: Chest Pain, Palpitations, Orthopnea, Paroxysmal Noc. Dyspnea, Edema, Lt Headedness, Other Gastrointestinal: Abdominal Pain; No: Nausea, Vomiting, Diarrhea, Constipation, Melena, Hematochezia, Other Genitourinary: No Dysuria, No Frequency, No Incontinence, No Hematuria, No Retention; Other (Kan catheter in place) Musculoskeletal: No: other, neck pain, shoulder pain, arm pain, back pain, hand pain, leg pain, foot pain Skin: No: Rash, Lesions, Jaundice, Bruising, Other Neurological: No: Weakness, Numbness, Incoordination, Change in speech, Confusion, Seizures, Other Medications Current Medications Medications Dose Ordered Sig/Dion Route Start Time Stop Time Status Last Admin Dose Admin Cefepime HCl 50 ml @ 12.5 mls/hr Q8HR IV 10/02/24 22:00 UNV Atorvastatin Calcium 10 mg HS PO 10/03/24 22:00 UNV Diagnostic Test (Pha) 1 strip IQ4HR 10/03/24 00:00 UNV Insulin Human Regular IQ4HR SC 10/03/24 00:00 UNV Dextrose 50 ml UD PRN IV 10/02/24 23:00 UNV Sodium Chloride 1,000 ml @ 120 mls/hr Q8H20M IV 10/02/24 23:00 UNV Acetaminophen/ Hydrocodone Bitart 1 tab Q4HP PRN PO 10/02/24 23:00 UNV Ondansetron HCl 4 mg Q4HP PRN IV 10/02/24 23:00 UNV Docusate Sodium 100 mg BIDPRN PRN PO 10/02/24 23:00 UNV Acetaminophen 650 mg Q6HP PRN PO 10/02/24 23:00 UNV Exam Vital Signs Vital Signs Date Time Temp Pulse Resp B/P (MAP) Pulse Ox O2 Delivery O2 Flow Rate FiO2 10/02/24 23:09 97.3 96 15 97/60 (72) 96 97.3 General Appearance: Alert, Oriented X3, Cooperative, No acute distress HEENT: Atraumatic, PERRLA, EOMI, Mucous membr. moist/pink Respiratory: Normal air movement Cardiovascular: Regular rate, Normal S1, Normal S2, No murmurs Abdominal: Normal bowel sounds, Soft, No tenderness, No hepatospenomegaly, No masses Extremities: No clubbing, No cyanosis, No edema, Normal pulses, No tenderness/swelling Skin: No rashes, No breakdown, No significant lesion Neuro: Normal speech, Normal tone, Sensation intact, Cranial nerves 3-12 NL, Reflexes 2+, Other (Generalized weakness) Psych/Mental Status: Mental status NL, Mood NL Labs/Xrays Labs Test 10/02/24 21:24 Range/Units White Blood Count 6.1 4.4-10.8 10^3/uL Red Blood Count 3.41 L 4.5-5.90 10^6/uL Hemoglobin 9.5 L 13.5-17.5 g/dL Hematocrit 28.7 L 41.0-53.0 % Mean Corpuscular Volume 84.1 80.0-100.0 fL Mean Corpuscular Hemoglobin 27.7 L 28.0-32.0 pg Mean Corpuscular Hemoglobin Concent 32.9 32.0-36.0 g/dL Red Cell Distribution Width 16.6 H 11.8-14.3 % Platelet Count 203 140-450 10^3/uL Mean Platelet Volume 9.1 6.9-10.8 fL Neutrophils (%) (Auto) 37.0-80.0 % Lymphocytes (%) (Auto) 10.0-50.0 % Monocytes (%) (Auto) 0.0-12.0 % Basophils (%) (Auto) 0.0-2.0 % Neutrophils # (Auto) 1.6-8.6 10 ^3/uL Lymphocytes # (Auto) 0.4-5.4 10 ^3/uL Monocytes # (Auto) 0-1.3 10 ^3/uL Differential Total Cells Counted 100.0 100 Neutrophils % (Manual) 78 37.0-80.0 Band Neutrophils % (Manual) 8 Lymphocytes % (Manual) 9 L 10.0-50.0 Monocytes % (Manual) 4 0-12 Eosinophils % (Manual) 0 0-7 Basophils % (Manual) 0 0.0-2.0 Metamyelocytes % (manual) 1 Myelocytes % (Manual) 0 Promyelocytes % (Manual) 0 Blast Cells % (Manual) 0 Reactive Lymphocytes 0 Platelet Estimate Adequate Prothrombin Time 12.3 H 9.3-11.8 sec Prothrombin Time INR 1.18 H 0.9-1.15 Activated Partial Thromboplast Time 34.4 24.5-34.5 SEC Sodium Level 130 L 136-145 mmol/L Potassium Level 4.0 3.5-5.1 mmol/L Chloride Level 95 L 98-107 mmol/L Carbon Dioxide Level 22 20-31 mmol/L Anion Gap 13 5-15 Blood Urea Nitrogen 23 9-23 mg/dL Creatinine 1.12 0.700-1.30 mg/dL Glomerular Filtration Rate Calc 85 >90 mL/min BUN/Creatinine Ratio 20.5 H 10.0-20.0 Serum Glucose 382 H 74-106 mg/dL Lactic Acid Level 1.3 0.4-2.0 mmol/L Calcium Level 8.5 L 8.7-10.4 mg/dL Total Bilirubin 0.3 0.2-1.0 mg/dL Aspartate Amino Transferase (AST) 25 13-40 U/L Alanine Aminotransferase (ALT) 14 7-40 U/L Alkaline Phosphatase 121 H 46-116 U/L Total Protein 7.1 5.7-8.2 g/dL Albumin 3.1 L 3.2-4.8 g/dL PATIENT: ANDREW HOLLOWAYACCT: [id number] UNIT: [id number] : 1985 LOC: ER ROOM / BED: / AGE / SEX: 39 / M ADM STATUS: REG ER SERVICE 33 ORDERING PHYSICIAN: NOAM CONCEPCION DO PROCEDURE(s): ABPL - CT AB PEL WO CON-NO ORAL OR IV REASON: fever ORDER NUMBER(s): [id number], ACCESSION NUMBER(s): [id number] Exam: CT CT AB PEL WO CON-NO ORAL OR IV History: fever Comparison Study: None Technique: Multidetector spiral CT of the abdomen was performed from lung bases to pubic symphysis. Imaging was performed without IV contrast. Axial, coronal and sagittal multiplanar reformats were obtained from the axial data set by the technologist. Radiation Dose:1. Abdomen/Pelvis: CTDIvol 14.41 mGy, DLP 3.92 mGy*cm. Findings: Evaluation of solid organs is limited due to lack of intravenous contrast use. Assessment is further limited by streak artifact from arm down positioning, and lack of peritoneal fat. Lower Chest: No acute findings. Liver: Unremarkable. Gallbladder and Biliary Tree: Unremarkable Pancreas: Unremarkable. Spleen: Unremarkable. Adrenal Glands: Unremarkable. Kidneys/Ureters: No urinary stone or obstruction. Bladder: Decompressed around a Kan catheter with circumferential wall promine nce. Pelvic Organs: Hypodense appearance of the prostate, which appears mildly enlarged. Bowel: Circumferential rectal wall thickening. No other evidence of wall thickening, or obstruction. Normal appendix. Vasculature: Mild atherosclerosis. Lymphadenopathy: Bilaterally enlarged inguinal lymph nodes. No obvious intraperitoneal or retroperitoneal adenopathy. Peritoneum: No ascites, free air, or fluid collection. Abdominal Wall: Anasarca. Musculoskeletal: Erosive change of the left anterior superior sacroiliac joint with heterogeneous gas and fluid contents extending within the left iliopsoas muscles, and within external rotator muscles. Lucent lesion of L3 appears benign. IMPRESSION: 1. Limited exam. 2. Evidence of left sacroiliitis with gas and fluid extending into left pelvic muscles likely representing abscess. Suboptimal characterization due to lack of contrast. Bilateral inguinal adenopathy is likely reactive. 3. Rectal wall thickening, correlate for symptoms of proctitis. 4. Kan catheter decompressed urinary bladder with wall thickening. Hypodense appearance of the mildly enlarged prostate. Cystitis and prostatitis or poss ible. ORDERING PHYSICIAN: NOAM CONCEPCION DO PROCEDURE(s): CXRP - CHEST PORTABLE REASON: fever ORDER NUMBER(s): [id number], ACCESSION NUMBER(s): [id number] CHEST RADIOGRAPH Indication: fever Technique: 1 view Comparison: None FINDINGS: Lines and Tubes: None Lungs/Pleura: No focal consolidation, pleural effusion or pneumothorax. Cardio-mediastinum: Unremarkable. Other: No acute osseous abnormality. IMPRESSION: 1. No acute cardiopulmonary abnormality. SEPSIS Sepsis Screen Date sepsis recognized/suspect: Oct 02, 2024 Time Sepsis recognized/suspect: 2034 Recent Procedure: Yes On Antibiotic Therapy: No Respiratory Rate >20: No Heart Rate >90: Yes Temp<36 C (96.8 F) or >38.3 C: Yes SBP <90 or MAP <65 mmHG: No New Acute Mental Status Change: No Is the patient on CPAP, BIPAP,: No Physician Orders Electrocardigram (10/02/24 20:49) Urinalysis (10/02/24 20:51) Chest Portable (10/02/24 20:51) Accucheck (10/02/24 20:51) Blood Culture (10/02/24 20:51) Lactic Acid W/ Reflex Order (10/03/24 00:00) Cefepime 1gm/ 50ml (Maxipime 1gm/50ml) (10/02/24 22:00) Notify Md If Map <65 Or Bp<90 (10/02/24 20:51) If Map<65 Start Vasopressor (10/02/24 20:51) Sepsis Reassesment After Fluid (10/02/24 21:51) Ct Ab Pel Wo Con-No Oral Or Iv (10/02/24 22:34) Piperacillin-Tazob 3.375gm (Zosyn 3.375g (10/02/24 22:45) Consistent Carb(Ccho)Diabetes (10/03/24 Breakfast) Atorvastatin (Lipitor) (10/03/24 22:00) Glucose Blood (Accu-Chek Comfort Curve T (10/03/24 00:00) Insulin R (Human) (Insulin R) (10/03/24 00:00) Dextrose 50% Syringe (10/02/24 23:00) Allergies (10/02/24 22:54) Code Status (10/02/24 22:54) Sodium Chloride 0.9% (10/02/24 23:00) Oxygen Per Hour (10/02/24 22:54) Hydrocodone-Acet 5/325mg Tab (Burns 5/32 (10/02/24 23:00) Ondansetron Hcl (Zofran) (10/02/24 23:00) Docusate Sodium Capsule (Colace Capsule) (10/02/24 23:00) Complete Blood Count (10/03/24 04:00) Comprehensive Metabolic Panel (10/03/24 04:00) Condition: Serious (10/02/24 22:54) Acetaminophen Tablet (Tylenol Tablet) (10/02/24 23:00) Bedrest With Bathroom Privileg (10/02/24 22:54) Sequential Compression Device (10/02/24 ) Vital Signs Date Time Temp Pulse Resp B/P (MAP) Pulse Ox O2 Delivery O2 Flow Rate FiO2 10/02/24 23:09 97.3 96 15 97/60 (72) 96 97.3 10/02/24 20:44 103.2 10/02/24 20:41 133 10/02/24 20:40 103.2 137 16 110/71 95 103.2 Laboratory Tests Test 10/02/24 21:24 Lactic Acid Level 1.3 mmol/L (0.4-2.0) White Blood Count 6.1 10^3/uL (4.4-10.8) Medications Medications Dose Ordered Sig/Dion Route Start Time Stop Time Status Last Admin Dose Admin Ibuprofen 600 mg ONCE ONCE PO 10/02/24 20:45 10/02/24 20:46 DC 10/02/24 20:44 600 MG Lactated Ringer's 2,800 ml @ 2,800 mls/hr ONCE ONCE IV 10/02/24 21:30 10/02/24 22:29 DC 10/02/24 23:31 2,800 MLS/HR Assessment/Plan Assessment/Plan Sepsis, unspecified organism Hyponatremia Abdominal abscess Methamphetamine abuse Plan 1. Admit to telemetry unit 2. Breathing treatment 3. Pain control management 4. IV antibiotic management 5. Management of fluids and electrolytes 6. Consultation for hospitalist 7. Diagnostic test abdomen/pelvis CT 8. DVT prophylaxis-on SCDs 9. Repeat labs CBC, CMP in a.m. 10. Home medication reviewed and reconciled 11. Continue with current medical management 12. Treatment plan discussed with patient and RN. Patient verbalized understanding. Plan discussed with: Patient, Other (RN) My Orders Orders - MARIO NICHOLSON DNP Procedure Category Date Status Time Consistent DIET 10/03/24 Transmitted Carb(Ccho)Diabetes Breakfast Atorvastatin (Lipitor) PHA 10/03/24 Logged 22:00 Glucose Blood PHA 10/03/24 Logged (Accu-Chek Comfort 00:00 Insulin R (Human) PHA 10/03/24 Logged (Insulin R) 00:00 Dextrose 50% Syringe PHA 10/02/24 Logged 23:00 Allergies CADE 10/02/24 In Process 22:54 Code Status CODE 10/02/24 Transmitted 22:54 Sodium Chloride 0.9% PHA 10/02/24 Logged 23:00 Oxygen Per Hour RT 10/02/24 Transmitted 22:54 Hydrocodone-Acet PHA 10/02/24 Logged 5/325mg Tab (Burns 23:00 Ondansetron Hcl PHA 10/02/24 Logged (Zofran) 23:00 Docusate Sodium PHA 10/02/24 Logged Capsule (Colace 23:00 Complete Blood Count LAB 10/03/24 Verified 04:00 Comprehensive LAB 10/03/24 Verified Metabolic Panel 04:00 Condition: Serious [facility] 10/02/24 In Process 22:54 Acetaminophen Tablet PHA 10/02/24 Logged (Tylenol Tablet) 23:00 Bedrest With Bathroom [facility] 10/02/24 In Process Privileg 22:54 Sequential [facility] 10/02/24 In Process Compression Device Problem List: (1) Sepsis, unspecified organism (2) Hyponatremia (3) Abdominal abscess (4) Methamphetamine abuse Date of Service: Oct 02, 2024 Billing Provider: MARIO NICHOLSON DNP Common Visit Codes: [id number] INP/OBS CARE (HIGH) MARIO NICHOLSON DNP Oct 02, 2024 23:34
[2024-10-02] MEDS ORDERED: NITROGLYCERIN 0.4 MG SL TAB SL PRN (23:45)
[2024-10-02] MEDS ORDERED: MORPHINE SULFATE INJ 2 MG/ml SYRG IV PRN (23:45)
[2024-10-02] MEDS ORDERED: VANCOMYCIN PER PHARMACY 0 MG IV SCH (23:45)
[2024-10-03] MEDS: SODIUM CHLORIDE 0.9% 1,000 ML IV SCH (03:08)
[2024-10-03] MEDS: CEFEPIME 1GM/50ML 50 ML IV SCH (03:17)
[2024-10-03] MEDS: VANCOMYCIN 1GM/250ML IV SCH ×2 (03:20→06:30)
[2024-10-03] MEDS: InsuLIN REG 1unit/0.01ml Soln (100units/ml) SC SCH (03:39)
[2024-10-03] MEDS: ACCU-CHEK COMFORT CURVE STRIP VI SCH (03:40)
[2024-10-03 04:41] LABS: Urine Protein, UAD Negative (Negative)
[2024-10-03 05:13] LABS: Alanine Aminotransferase 11 U/L (7-40); Alkaline Phosphatase 113 U/L (46-116); Anion Gap 14 (5-15); BUN/Creatinine Ratio 26.1 (10.0-20.0); Carbon Dioxide 24 mmol/L (20-31); Potassium 3.8 mmol/L (3.5-5.1)
[2024-10-03 05:14] LABS: Total Protein 6.4 g/dL (5.7-8.2)
[2024-10-03 05:21] LABS: Albumin 2.7 g/dL (3.2-4.8); Bilirubin, Total 0.2 mg/dL (0.2-1.0); Blood Urea Nitrogen 24 mg/dL (9-23); Calcium 8.5 mg/dL (8.7-10.4); Chloride 98 mmol/L (98-107); Glucose 316 mg/dL (74-106); Sodium 136 mmol/L (136-145)
[2024-10-03 05:26] LABS: Hematocrit 30.4 % (41.0-53.0); Hemoglobin 9.8 g/dL (13.5-17.5); Mean Corpuscular Hemoglobin 27.6 pg (28.0-32.0); Mean Corpuscular Volume 85.2 fL (80.0-100.0); Nucleated Red Blood Cells % 0.2 %
[2024-10-03 07:30] VITALS: PULSE 92; RESP 11; O2SAT 100
--- NOTE | 2024-10-03 10:31 | DVHPN2 ---
Subjective Patient is seen at bedside today. Appears ill, has poor historian does not know what meds over surgeries have been done in the past. Reviewed: Care Plan Changes from previous H/P or p: No Changes General: Per HPI Eyes: No Pain, No Vision change, No Conjunctivae inflammation, No Eyelid inflammation, No Other, No Redness ENT: No Ear pain, No Ear discharge, No Nose pain, No Nose discharge, No Nose congestion, No Mouth pain, No Mouth swelling, No Throat pain, No Throat swelling, No Other Cardiovascular: No Chest Pain, No Palpitations, No Orthopnea, No Paroxysmal Noc. Dyspnea, No Edema, No Lt Headedness, No Other Respiratory: No Cough, No Dry, No Shortness of breath, No SOB with excertion, No Wheezing, No Hemoptysis, No Pleuritic Pain, No Sputum, No Other Gastrointestinal: No Nausea, No Vomiting; Abdominal Pain; No Diarrhea, No Constipation, No Melena, No Hematochezia, No Other Genitourinary: No Dysuria, No Frequency, No Incontinence, No Hematuria, No Retention; Other (Kan catheter in place) Musculoskeletal: No other, No neck pain, No shoulder pain, No arm pain, No back pain, No hand pain, No leg pain, No foot pain Skin: No Rash, No Lesions, No Jaundice, No Bruising, No Other Objective Vitals Vital Signs Date Time Temp Pulse Resp B/P (MAP) Pulse Ox O2 Delivery O2 Flow Rate FiO2 10/03/24 07:30 92 11 100 Nasal Cannula* 2 28 10/03/24 07:30 97.8 95/60 (72) 97.8 Intake/Output Intake and Output 10/03/24 07:00 Intake Total 622.5 ml Output Total 3100 ml Balance -2477.5 ml Intake IV Total 622.5 ml Output Urine Total 3100 ml Exam GEN: Healthy appearing, well-developed, NAD. HEENT: NC/AT; MMM. CV: Tachycardia, regular rhythm LUNGS: CTAB, no w/r/c. ABD: Soft, NT/ND, NBS, no masses or organomegaly. EXT: skin Warm, well perfused. no rashes. No clubbing, cyanosis, or edema. R ight toe wrapped in gauze, chronic ulcer NEURO: Ambulating with no limitations. No focal deficits. Medications Current Medications Medications Dose Ordered Sig/Dion Route Start Time Stop Time Status Last Admin Dose Admin Cefepime HCl 50 ml @ 12.5 mls/hr Q8HR@0300,1100,1900 IV 10/03/24 03:30 10/03/24 05:02 12.5 MLS/HR Atorvastatin Calcium 10 mg HS PO 10/03/24 22:00 Diagnostic Test (Pha) 1 strip IQ4HR 10/03/24 00:00 10/03/24 08:40 1 STRIP Insulin Human Regular IQ4HR SC 10/03/24 00:00 10/03/24 08:37 6 UNITS Dextrose 50 ml UD PRN IV 10/02/24 23:00 Sodium Chloride 1,000 ml @ 120 mls/hr Q8H20M IV 10/02/24 23:00 10/03/24 07:20 120 MLS/HR Acetaminophen/ Hydrocodone Bitart 1 tab Q4HP PRN PO 10/02/24 23:00 Ondansetron HCl 4 mg Q4HP PRN IV 10/02/24 23:00 Docusate Sodium 100 mg BIDPRN PRN PO 10/02/24 23:00 Acetaminophen 650 mg Q6HP PRN PO 10/02/24 23:00 Nitroglycerin 0.4 mg Q5MINP PRN SL 10/02/24 23:45 Morphine Sulfate 2 mg Q30M PRN IV 10/02/24 23:45 Vancomycin HCl 0 ml @ 0 mls/hr UD IV 10/02/24 23:45 Vancomycin HCl 100 ml @ 100 mls/hr Q12H IV 10/03/24 16:00 Laboratory Results Laboratory Tests 10/03/24 04:25 Chemistry Test 10/02/24 21:24 10/03/24 04:25 Albumin 3.1 g/dL (3.2-4.8) L 2.7 g/dL (3.2-4.8) L Calcium Level 8.5 mg/dL (8.7-10.4) L 8.5 mg/dL (8.7-10.4) L Total Protein 7.1 g/dL (5.7-8.2) 6.4 g/dL (5.7-8.2) Coagulation Test 10/02/24 21:24 Prothrombin Time 12.3 sec (9.3-11.8) H Prothrombin Time INR 1.18 (0.9-1.15) H Activated Partial Thromboplast Time 34.4 SEC (24.5-34.5) LFT Test 10/02/24 21:24 10/03/24 04:25 Alanine Aminotransferase (ALT) 14 U/L (7-40) 11 U/L (7-40) Alkaline Phosphatase 121 U/L (46-116) H 113 U/L (46-116) Aspartate Amino Transferase (AST) 25 U/L (13-40) 17 U/L (13-40) Total Bilirubin 0.3 mg/dL (0.2-1.0) 0.2 mg/dL (0.2-1.0) Urinalysis Test 10/02/24 03:01 Urine Color Colorless (Yellow) Urine Clarity Clear (Clear) Urine pH 5.0 (5.0-9.0) Urine Specific [place] 1.020 (1.001-1.035) Urine Protein Negative (Negative) Urine Ketones 1+ (Negative) H Urine Blood Trace /uL (Negative) H Urine Nitrite Negative (Negative) Urine Bilirubin Negative (Negative) Urine Urobilinogen Normal mg/dL (Negative) Urine Leukocyte Esterase Trace /uL (Negative) Urine RBC 1 /hpf (0 - 3) Urine Microscopic WBC 13 /HPF (0-3) H Urine Squamous Epithelial Cells None seen /hpf (<5) Urine Bacteria None seen /hpf (None Seen) Urine Glucose 4+ mg/dL (Normal) H Microbiology Microbiology Date/Time Source Procedure Growth Status 10/02/24 21:27 Blood Blood Culture - Preliminary Resulted Labs and/or images reviewed: Labs reviewed by me, Image(s) reviewed by me Assessment/Plan Assessment/Plan patient is a 39-year-old male with past medical history of diabetes mellitus, MRSA of the urine, hyperlipidemia, and methamphetamine abuse presented to [facility] ED with complaint of fever. Patient reports he has been experiencing fever, associated with generalized weakness, abdominal pain, presents with Kan catheter in place due to recent prostate surgery. Patient was seen and evaluated in the ED, laboratory data shows WBC 6.1, hemoglobin 9.5, hematocrit 28.7, platelets 203, sodium 130, potassium 4.0, BUN 23, creatinine 1.12, glucose 382, calcium 8.5, albumin 3.1, blood pressure 110/70, heart rate 136 trending down to 96, temperature 103.2 F trending down to 97.6 F, O2 saturation 95% on room air. Abdomen/pelvis CT revealing evidence of left sacroiliitis with gas and fluid extending into left pelvic muscles likely representing abscess; rectal wall thickening correlate for symptoms of proctitis; Kan catheter decompressed urinary bladder with wall thickening; hypodense appearance of the mildly enlarged prostate, cystitis and prostatitis or possible. Patient was started on IV antibiotic regimen vancomycin, 10/03: Patient has very high fevers up to 103, CT showing left sacroiliitis with gas fluid in 2 left pelvic muscles possible abscess. We will consult surgery. There is also proctitis and bladder wall thickening. We will continue broad- spectrum IV antibiotics. ?Concern of IVDU ,. Patient is tremulous mildly we will continue watching for alcohol withdrawal. We will monitor. We will need UDS. Significant hyperglycemia, diabetes likely complicating and/or causing wound/healing. Patient had recent prostate surgery and possible good fentanyl to be related to that, surgery is recommended urology evaluation. Urology consult placed. Sepsis, unspecified organism Febrile episodes Hypoalbuminemia Diabetes with hyperglycemia Ketosis, possible early DKA Hyponatremia Abdominal abscess Methamphetamine abuse Plan discussed with: Patient Date of Service: Oct 03, 2024 Billing Provider: MARGAUX MCCORMACK MD Common Visit Codes: [id number] INP/OBS CARE(HIGH) MARGAUX MCCORMACK MD Oct 03, 2024 10:31
[2024-10-03 13:57] VITALS: BP 103/56; PULSE 125; RESP 18; TEMP 99.2; O2SAT 92
[2024-10-03 13:58] VITALS: BP 103/56; PULSE 125; RESP 18; TEMP 103; O2SAT 92
--- NOTE | 2024-10-03 15:21 | DVHINCON2 ---
Date of service: Oct 03, 2024 History of Present Illness 39-year-old male history of diabetes mellitus and methamphetamine abuse in the past admitted secondary to fever. Patient had recent prostate surgery and came in with the indwelling Kan catheter. Patient has not followed up with urology after his surgery. On the imaging study patient there appeared to be possible air bubbles in the left sacroiliac region therefore surgical consultation was requested. However patient currently denies any pelvic pain. Past Medical History Diabetes mellitus. Methamphetamine abuse. Hyperlipidemia. Family History: Family history: Diabetes mellitus GRANDMOTHER (UNK) Family History Noncontributory Allergies: Coded Allergies: No Known Drug Allergy (Unverified Allergy, Unknown, 10/03/24) Home Meds Active Scripts Naproxen (Naproxen) 375 Mg Tab, 1 TAB PO TID for 5 Days, #15 TAB 5 Refills Prov:JULIO MANZO MD 07/19/24 Cefdinir (Cefdinir) 300 Mg Cap, 300 MG PO BID for 10 Days, #20 CAP Prov:JULIO MANZO MD 07/19/24 Ondansetron Odt 4MG Tab (ZOFRAN PO) 4 Mg Tb, 4 MG PO TID for 30 Days, #30 TAB ODT TAB-DISSOLVE IN MOUTH, THEN SWALLOW Prov:AHMET GANDHI MD 08/08/23 Pantoprazole Sodium Sesquihydr (Protonix) 40 Mg Tab, 40 MG PO DAILY PRN for 30 Days, #30 TAB Prov:AHMET GANDHI MD 08/08/23 Reported Medications Empagliflozin (Jardiance) 25 Mg Tab, 1 TAB PO DAILY 08/24/24 Metformin Hydrochloride (Metformin Hcl) 1,000 Mg Tab, 1 TAB PO BID 08/24/24 Atorvastatin Calcium (Lipitor) 10 Mg Tab, 1 TAB PO QPM, #90 TAB 1 Refill 05/10/23 Aripiprazole (Aripiprazole) 10 Mg Tab, 1 TAB PO DAILY 05/10/23 Escitalopram Oxalate (ESCITALOPRAM OXALATE) 10 Mg Tab, 1 TAB PO DAILY 05/10/23 Metformin Hydrochloride (Metformin Hcl) 500 Mg Tab, 1000 MG PO BID 02/18/11 Current Medications Current Medications Medications (Trade) Dose Ordered Sig/Dion Route PRN Reason Start Time Stop Time Status Last Admin Cefepime HCl 50 ml @ 12.5 mls/hr Q8HR@0300,1100,1900 IV 10/03/24 03:30 10/03/24 11:15 Atorvastatin Calcium (Lipitor) 10 mg HS PO 10/03/24 22:00 Diagnostic Test (Pha) (Accu-Chek Comfort Curve T) 1 strip IQ4HR 10/03/24 00:00 10/03/24 12:01 Insulin Human Regular (InsuLIN R) IQ4HR SC 10/03/24 00:00 10/03/24 12:01 Dextrose 50 ml UD PRN IV Blood Sugar LESS THAN 60 10/02/24 23:00 Sodium Chloride 1,000 ml @ 120 mls/hr Q8H20M IV 10/02/24 23:00 10/03/24 07:20 Acetaminophen/ Hydrocodone Bitart ([place] 5/325MG Tab) 1 tab Q4HP PRN PO MODERATE PAIN (4-6 PAIN SCALE) 10/02/24 23:00 Ondansetron HCl (Zofran) 4 mg Q4HP PRN IV NAUSEA / VOMITING 10/02/24 23:00 Docusate Sodium (Colace Capsule) 100 mg BIDPRN PRN PO FOR CONSTIPATION 10/02/24 23:00 Acetaminophen (Tylenol Tablet) 650 mg Q6HP PRN PO PAIN SCALE 1-3 OR TEMP>100.4 10/02/24 23:00 Nitroglycerin (Ntrostat Sublingual) 0.4 mg Q5MINP PRN SL FOR CHEST PAIN 10/02/24 23:45 Morphine Sulfate 2 mg Q30M PRN IV FOR CHEST PAIN 10/02/24 23:45 Vancomycin HCl 0 ml @ 0 mls/hr UD IV 10/02/24 23:45 Vancomycin HCl 250 ml @ 250 mls/hr Q1H IV 10/03/24 03:30 10/03/24 05:29 DC 10/03/24 06:28 Vancomycin HCl 250 ml @ 250 mls/hr Q1H IV 10/03/24 06:30 10/03/24 07:29 DC Vancomycin HCl 100 ml @ 100 mls/hr Q12H IV 10/03/24 16:00 Metronidazole 100 ml @ 100 mls/hr Q8HR IV 10/03/24 10:45 10/03/24 14:01 DC 10/03/24 11:15 Metronidazole 100 ml @ 100 mls/hr Q8H IV 10/03/24 14:15 10/03/24 14:01 DC Metronidazole 100 ml @ 100 mls/hr Q8H IV 10/03/24 20:00 Vital Signs Vital Signs Date Time Temp Pulse Resp B/P (MAP) Pulse Ox O2 Delivery O2 Flow Rate FiO2 10/03/24 13:00 130 16 95/47 (63) 98 10/03/24 07:30 Nasal Cannula* 2 28 10/03/24 07:30 97.8 97.8 Physical Exam GEN: Age-appropriate male in no acute distress. Alert. HEENT: Normocephalic atraumatic. Moist mucous membranes. Anicteric sclerae. CV: RRR Respiratory: CTAB ABD: Soft. Nontender nondistended. CT of the abdomen and pelvis: Evidence of left sacroiliitis with gas and fluid extending into the left pelvic muscle likely representing abscess. Labs/Diagnostic Data Labs Test 10/03/24 11:34 10/03/24 04:25 10/02/24 21:24 10/02/24 03:01 Range/Units POC Glucose 211 H 70-106 mg/dl White Blood Count 4.8 4.4-10.8 10^3/uL Red Blood Count 3.57 L 4.5-5.90 10^6/uL Hemoglobin 9.8 L 13.5-17.5 g/dL Hematocrit 30.4 L 41.0-53.0 % Mean Corpuscular Volume 85.2 80.0-100.0 fL Mean Corpuscular Hemoglobin 27.6 L 28.0-32.0 pg Mean Corpuscular Hemoglobin Concent 32.4 32.0-36.0 g/dL Red Cell Distribution Width 16.5 H 11.8-14.3 % Platelet Count 135 L 140-450 10^3/uL Mean Platelet Volume 8.8 6.9-10.8 fL Neutrophils (%) (Auto) 79.8 37.0-80.0 % Lymphocytes (%) (Auto) 9.3 L 10.0-50.0 % Monocytes (%) (Auto) 9.2 0.0-12.0 % Eosinophils (%) (Auto) 1.3 0.0-7.0 % Basophils (%) (Auto) 0.4 0.0-2.0 % Neutrophils # (Auto) 3.8 1.6-8.6 10 ^3/uL Lymphocytes # (Auto) 0.4 0.4-5.4 10 ^3/uL Monocytes # (Auto) 0.4 0-1.3 10 ^3/uL Eosinophils # (Auto) 0.1 0-0.8 10 ^3/uL Basophils # (Auto) 0 0-0.2 10 ^3/uL Nucleated Red Blood Cells 0.2 % Sodium Level 136 # 136-145 mmol/L Potassium Level 3.8 3.5-5.1 mmol/L Chloride Level 98 98-107 mmol/L Carbon Dioxide Level 24 20-31 mmol/L Anion Gap 14 5-15 Blood Urea Nitrogen 24 H 9-23 mg/dL Creatinine 0.92 0.700-1.30 mg/dL Glomerular Filtration Rate Calc 108 >90 mL/min BUN/Creatinine Ratio 26.1 H 10.0-20.0 Serum Glucose 316 H 74-106 mg/dL Calcium Level 8.5 L 8.7-10.4 mg/dL Total Bilirubin 0.2 0.2-1.0 mg/dL Aspartate Amino Transferase (AST) 17 13-40 U/L Alanine Aminotransferase (ALT) 11 7-40 U/L Alkaline Phosphatase 113 46-116 U/L Total Protein 6.4 5.7-8.2 g/dL Albumin 2.7 L 3.2-4.8 g/dL Differential Total Cells Counted 100.0 100 Neutrophils % (Manual) 78 37.0-80.0 Band Neutrophils % (Manual) 8 Lymphocytes % (Manual) 9 L 10.0-50.0 Monocytes % (Manual) 4 0-12 Eosinophils % (Manual) 0 0-7 Basophils % (Manual) 0 0.0-2.0 Metamyelocytes % (manual) 1 Myelocytes % (Manual) 0 Promyelocytes % (Manual) 0 Blast Cells % (Manual) 0 Reactive Lymphocytes 0 Platelet Estimate Adequate Prothrombin Time 12.3 H 9.3-11.8 sec Prothrombin Time INR 1.18 H 0.9-1.15 Activated Partial Thromboplast Time 34.4 24.5-34.5 SEC Lactic Acid Level 1.3 0.4-2.0 mmol/L Urine Color Colorless Yellow Urine Clarity Clear Clear Urine pH 5.0 5.0-9.0 Urine Specific [place] 1.020 1.001-1.035 Urine Protein Negative Negative Urine Ketones 1+ H Negative Urine Blood Trace H Negative /uL Urine Nitrite Negative Negative Urine Bilirubin Negative Negative Urine Urobilinogen Normal Negative mg/dL Urine Leukocyte Esterase Trace Negative /uL Urine RBC 1 0 - 3 /hpf Urine Microscopic WBC 13 H 0-3 /HPF Urine Squamous Epithelial Cells None seen <5 /hpf Urine Bacteria None seen None Seen /hpf Urine Glucose 4+ H Normal mg/dL Microbiology Date/Time Source Procedure Growth Status 10/02/24 21:27 Blood Blood Culture - Preliminary Resulted Assessment 1. Recent prostate surgery with indwelling Kan catheter 2. Possible abscess in the sacroiliac region however clinically asymptomatic Plan/Recommendation 1. I recommend continuing with IV antibiotics. 2. Unfortunately there was no IR recoveries on weekend. We will repeat a CT of the abdomen and pelvis on Sunday and see if there is persistent fluid collection. If so we will consult IR for possible drainage. Plan discussed with: Patient WILFREDO CAR MD Oct 03, 2024 15:21
[2024-10-03] MEDS: VANCOMYCIN 750MG KIT 100 ML IV SCH (15:51)
[2024-10-03 16:04] LABS: Amphetamine Screen, Urine Pos (NEGATIVE); Barbiturate Scree,Urine Neg (NEGATIVE); Benzodiazephine Screen, Urine Neg (NEGATIVE); Cannabinoid Screen, Urine Neg (NEGATIVE); Cocaine Screen, Urine Neg (NEGATIVE); Opiate Scree,Urine Neg (NEGATIVE); Phencyclidine Screen, Urine Neg (NEGATIVE)
[2024-10-03 16:16] VITALS: PULSE 130; RESP 16; O2SAT 96
--- NOTE | 2024-10-03 17:05 | DVH ---
Exam: CT CT AB PEL WO CON-NO ORAL OR IV History: fever Comparison Study: None Technique: Multidetector spiral CT of the abdomen was performed from lung bases to pubic symphysis. Imaging was performed without IV contrast. Axial, coronal and sagittal multiplanar reformats were obtained from the axial data set by the technologist. Radiation Dose : 1. Abdomen/Pelvis: CTDIvol 14.41 mGy, DLP 3.92 mGy*cm. Findings: Evaluation of solid organs is limited due to lack of intravenous contrast use. Assessment is further limited by streak artifact from arm down positioning, and lack of peritoneal fat. Lower Chest: No acute findings. Liver: Unremarkable. Gallbladder and Biliary Tree: Unremarkable Pancreas: Unremarkable. Spleen: Unremarkable. Adrenal Glands: Unremarkable. Kidneys/Ureters: No urinary stone or obstruction. Bladder: Decompressed around a Kan catheter with circumferential wall prominence. Pelvic Organs: Hypodense appearance of the prostate, which appears mildly enlarged. Bowel: Circumferential rectal wall thickening. No other evidence of wall thickening, or obstruction. Normal appendix. Vasculature: Mild atherosclerosis. [facility] RADIOLOGY REPORT PATIENT NAME: ANDREW HOLLOWAY : 1985 GENDER: M LOCATION: [facility] DOS: 10/02/2024 INTERPRETING PROVIDER: JOSE DOMINGO Lymphadenopathy: Bilaterally enlarged inguinal lymph nodes. No obvious intraperitoneal or retroperitoneal adenopathy. Peritoneum: No ascites, free air, or fluid collection. Abdominal Wall: Anasarca. Musculoskeletal: Erosive change of the left anterior superior sacroiliac joint with heterogeneous gas and fluid contents extending within the left iliopsoas muscles, and within external rotator muscles. Lucent lesion of L3 appears benign. IMPRESSION: 1. Limited exam. 2. Evidence of left sacroiliitis with gas and fluid extending into left pelvic muscles likely representing abscess. Suboptimal characterization due to lack of contrast. Bilateral inguinal adenopathy is likely reactive. 3. Rectal wall thickening, correlate for symptoms of proctitis. 4. Kan catheter decompressed urinary bladder with wall thickening. Hypodense appearance of the mildly enlarged prostate. Cystitis and prostatitis or possible. Radiation optimization: All CT scans at this facility use at least one of these dose optimization techniques: automated exposure control mA and/or kV adjustment per patient size (includes targeted exams where dose is matched to clinical indication) or iterative reconstruction. IC
--- NOTE | 2024-10-03 17:09 | DVH ---
PATIENT: NGUYỄN ESCALANTECCT: [id number] UNIT: [id number] : 1985 LOC: OVERFLOW ROOM / BED: [address] [place] [address] AGE / SEX: 39 / M ADM STATUS: ADM IN SERVICE 50 ORDERING PHYSICIAN: NOAM CONCEPCION DO PROCEDURE(s): CXRP - CHEST PORTABLE REASON: fever ORDER NUMBER(s): [id number], ACCESSION NUMBER(s): [id number] CHEST RADIOGRAPH Indication: fever Technique: 1 view Comparison: None FINDINGS: Lines and Tubes: None Lungs/Pleura: No focal consolidation, pleural effusion or pneumothorax. Cardiomediastinum: Unremarkable. Other: No acute osseous abnormality. IMPRESSION: 1. No acute cardiopulmonary abnormality. ATED BY: JOSE L GARCIA MD DICTATED DATE/TIME: 10/02/242232 SIGNED BY: JOSE L GARCIA MD SIGNED DATE/TIME: 10/02/242232 CC: PATRIC
[2024-10-03 20:00] VITALS: PULSE 109
[2024-10-03 21:00] VITALS: BP 124/81; PULSE 110; RESP 19; TEMP 99.9; O2SAT 91
[2024-10-03] MEDS: HYDROcodone-ACET 5/325MG TAB PO PRN (21:09)
[2024-10-03] MEDS: ATORVASTATIN 20 MG TAB PO SCH (21:10)
[2024-10-04] VITALS (7 sets, daily range): BP systolic 92–109; BP diastolic 53–62; PULSE 60–120; RESP 16–19; TEMP 98–101.5; O2SAT 84–99
[2024-10-04] MEDS: ACETAMINOPHEN 325 MG TAB PO PRN (05:35)
[2024-10-04 07:16] LABS: Hematocrit 26.0 % (41.0-53.0); Hemoglobin 8.6 g/dL (13.5-17.5); Mean Corpuscular Hemoglobin 28.0 pg (28.0-32.0); Mean Corpuscular Volume 84.7 fL (80.0-100.0)
[2024-10-04 07:28] LABS: Alanine Aminotransferase 19 U/L (7-40); Anion Gap 9 (5-15); BUN/Creatinine Ratio 23.5 (10.0-20.0); Blood Urea Nitrogen 20 mg/dL (9-23); Carbon Dioxide 27 mmol/L (20-31); Chloride 98 mmol/L (98-107); Potassium 3.5 mmol/L (3.5-5.1); Total Protein 6.2 g/dL (5.7-8.2)
[2024-10-04 07:31] LABS: Albumin 2.6 g/dL (3.2-4.8); Alkaline Phosphatase 148 U/L (46-116); Bilirubin, Total < 0.2 mg/dL (0.2-1.0); Calcium 8.2 mg/dL (8.7-10.4); Glucose 308 mg/dL (74-106); Sodium 134 mmol/L (136-145)
[2024-10-04 08:51] LABS: Total Cells Counted 100.0 (100)
--- NOTE | 2024-10-04 10:37 | DVHPN2 ---
Progress Note - Dictate Date Seen: Oct 04, 2024 Medical Necessity Reason Pt with a Central, PICC or Fol: No Subjective E: no major events o/n. no complaints. denies pain. vital signs Vital Sign Date Time Temp Pulse Resp B/P (MAP) Pulse Ox O2 Delivery O2 Flow Rate FiO2 10/04/24 09:00 98.0 101 19 98/62 (74) 94 98.0 10/03/24 20:00 Room Air* 0 21 Total Intake and Output 10/03/24 10/03/24 10/04/24 15:00 23:00 07:00 Intake Total 700 ml 1650 ml 1400 ml Output Total 2000 ml 600 ml 3250 ml Balance -1300 ml 1050 ml -1850 ml medications Current Medications Medications Dose Ordered Sig/Dion Route Start Time Stop Time Status Last Admin Dose Admin Cefepime HCl 50 ml @ 12.5 mls/hr Q8HR@0300,1100,1900 IV 10/03/24 03:30 10/04/24 03:38 12.5 MLS/HR Atorvastatin Calcium 10 mg HS PO 10/03/24 22:00 10/03/24 21:10 10 MG Diagnostic Test (Pha) 1 strip IQ4HR 10/03/24 00:00 10/04/24 08:00 1 STRIP Insulin Human Regular IQ4HR SC 10/03/24 00:00 10/04/24 08:00 15 UNITS Dextrose 50 ml UD PRN IV 10/02/24 23:00 Sodium Chloride 1,000 ml @ 120 mls/hr Q8H20M IV 10/02/24 23:00 10/04/24 08:20 120 MLS/HR Acetaminophen/ Hydrocodone Bitart 1 tab Q4HP PRN PO 10/02/24 23:00 10/04/24 03:33 1 TAB Ondansetron HCl 4 mg Q4HP PRN IV 10/02/24 23:00 Docusate Sodium 100 mg BIDPRN PRN PO 10/02/24 23:00 Acetaminophen 650 mg Q6HP PRN PO 10/02/24 23:00 10/04/24 05:35 650 MG Nitroglycerin 0.4 mg Q5MINP PRN SL 10/02/24 23:45 Morphine Sulfate 2 mg Q30M PRN IV 10/02/24 23:45 Vancomycin HCl 0 ml @ 0 mls/hr UD IV 10/02/24 23:45 Vancomycin HCl 100 ml @ 100 mls/hr Q12H IV 10/03/24 16:00 10/04/24 03:38 100 MLS/HR Metronidazole 100 ml @ 100 mls/hr Q8H IV 10/03/24 20:00 10/04/24 03:38 100 MLS/HR objective GEN: NAD ABD: soft. NT/ND. laboratory and microbiology Laboratory Tests 10/04/24 05:15 Test 10/04/24 05:15 Range/Units Serum Glucose 308 H 74-106 mg/dL Assessment/Plan A: 1. Recent prostate surgery with indwelling Kan catheter 2. Possible abscess in the sacroiliac region however clinically asymptomatic. P: 1. reviewed CT with Dr. Marshall. no obvious drainable abscess. will cont iv abx and repeat f/u CT on Mon. if no significant worsening, then cont treat conservatively. Plan discussed with: Patient WILFREDO CAR MD Oct 04, 2024 10:37
[2024-10-04] MEDS ORDERED: DEXTROSE (50%) 50ML SYRG IV PRN (13:30)
[2024-10-04] MEDS: ACCU-CHEK COMFORT CURVE STRIP VI SCH (15:51)
[2024-10-04] MEDS: InsuLIN REG 1unit/0.01ml Soln (100units/ml) SC SCH (16:24)
--- NOTE | 2024-10-04 17:23 | DVHPN2 ---
Subjective Patient is seen at bedside today. Appears ill, has poor historian does not know what meds over surgeries have been done in the past. Reviewed: Care Plan Changes from previous H/P or p: No Changes General: Per HPI Eyes: No Pain, No Vision change, No Conjunctivae inflammation, No Eyelid inflammation, No Other, No Redness ENT: No Ear pain, No Ear discharge, No Nose pain, No Nose discharge, No Nose congestion, No Mouth pain, No Mouth swelling, No Throat pain, No Throat swelling, No Other Cardiovascular: No Chest Pain, No Palpitations, No Orthopnea, No Paroxysmal Noc. Dyspnea, No Edema, No Lt Headedness, No Other Respiratory: No Cough, No Dry, No Shortness of breath, No SOB with excertion, No Wheezing, No Hemoptysis, No Pleuritic Pain, No Sputum, No Other Gastrointestinal: No Nausea, No Vomiting; Abdominal Pain; No Diarrhea, No Constipation, No Melena, No Hematochezia, No Other Genitourinary: No Dysuria, No Frequency, No Incontinence, No Hematuria, No Retention; Other (Kan catheter in place) Musculoskeletal: No other, No neck pain, No shoulder pain, No arm pain, No back pain, No hand pain, No leg pain, No foot pain Skin: No Rash, No Lesions, No Jaundice, No Bruising, No Other Objective Vitals Vital Signs Date Time Temp Pulse Resp B/P (MAP) Pulse Ox O2 Delivery O2 Flow Rate FiO2 10/04/24 16:39 98.4 111 16 95/57 (70) 95 98.4 10/04/24 08:00 Room Air* 0 21 Intake/Output Intake and Output 10/04/24 07:00 Intake Total 3750 ml Output Total 5850 ml Balance -2100 ml Intake Oral 1800 ml IV Total 1950 ml Output Urine Total 5850 ml Exam GEN: Healthy appearing, well-developed, NAD. HEENT: NC/AT; MMM. CV: Tachycardia, regular rhythm LUNGS: CTAB, no w/r/c. ABD: Soft, NT/ND, NBS, no masses or organomegaly. EXT: skin Warm, well perfused. no rashes. No clubbing, cyanosis, or edema. R ight toe wrapped in gauze, chronic ulcer NEURO: Ambulating with no limitations. No focal deficits. Medications Current Medications Medications Dose Ordered Sig/Dion Route Start Time Stop Time Status Last Admin Dose Admin Cefepime HCl 50 ml @ 12.5 mls/hr Q8HR@0300,1100,1900 IV 10/03/24 03:30 10/04/24 11:50 12.5 MLS/HR Atorvastatin Calcium 10 mg HS PO 10/03/24 22:00 10/03/24 21:10 10 MG Sodium Chloride 1,000 ml @ 120 mls/hr Q8H20M IV 10/02/24 23:00 10/04/24 15:51 120 MLS/HR Acetaminophen/ Hydrocodone Bitart 1 tab Q4HP PRN PO 10/02/24 23:00 10/04/24 13:35 1 TAB Ondansetron HCl 4 mg Q4HP PRN IV 10/02/24 23:00 Docusate Sodium 100 mg BIDPRN PRN PO 10/02/24 23:00 Acetaminophen 650 mg Q6HP PRN PO 10/02/24 23:00 10/04/24 05:35 650 MG Nitroglycerin 0.4 mg Q5MINP PRN SL 10/02/24 23:45 Morphine Sulfate 2 mg Q30M PRN IV 10/02/24 23:45 Vancomycin HCl 0 ml @ 0 mls/hr UD IV 10/02/24 23:45 Vancomycin HCl 100 ml @ 100 mls/hr Q12H IV 10/03/24 16:00 10/04/24 16:00 100 MLS/HR Metronidazole 100 ml @ 100 mls/hr Q8H IV 10/03/24 20:00 10/04/24 11:52 100 MLS/HR Diagnostic Test (Pha) 1 strip IQ4HR 10/04/24 16:00 10/04/24 15:51 1 STRIP Insulin Human Regular IQ4HR SC 10/04/24 16:00 10/04/24 16:24 16 UNITS Dextrose 50 ml UD PRN IV 10/04/24 13:30 Mupirocin 1 applic BID EACHNOSTRI 10/04/24 22:00 10/09/24 21:59 Laboratory Results Laboratory Tests 10/04/24 05:15 Chemistry Test 10/04/24 05:15 Albumin 2.6 g/dL (3.2-4.8) L Calcium Level 8.2 mg/dL (8.7-10.4) L Total Protein 6.2 g/dL (5.7-8.2) LFT Test 10/04/24 05:15 Alanine Aminotransferase (ALT) 19 U/L (7-40) Alkaline Phosphatase 148 U/L (46-116) H Aspartate Amino Transferase (AST) 46 U/L (13-40) H Total Bilirubin < 0.2 mg/dL (0.2-1.0) L Urinalysis Test 10/02/24 03:01 Urine Color Colorless (Yellow) Urine Clarity Clear (Clear) Urine pH 5.0 (5.0-9.0) Urine Specific [place] 1.020 (1.001-1.035) Urine Protein Negative (Negative) Urine Ketones 1+ (Negative) H Urine Blood Trace /uL (Negative) H Urine Nitrite Negative (Negative) Urine Bilirubin Negative (Negative) Urine Urobilinogen Normal mg/dL (Negative) Urine Leukocyte Esterase Trace /uL (Negative) Urine RBC 1 /hpf (0 - 3) Urine Microscopic WBC 13 /HPF (0-3) H Urine Squamous Epithelial Cells None seen /hpf (<5) Urine Bacteria None seen /hpf (None Seen) Urine Glucose 4+ mg/dL (Normal) H Microbiology Microbiology Date/Time Source Procedure Growth Status 10/03/24 00:00 Toe Gram Stain - Final Resulted 10/03/24 00:00 Toe Wound Culture - Preliminary Resulted 10/02/24 21:27 Blood Blood Culture - Preliminary Resulted Labs and/or images reviewed: Labs reviewed by me, Image(s) reviewed by me Assessment/Plan Assessment/Plan patient is a 39-year-old male with past medical history of diabetes mellitus, MRSA of the urine, hyperlipidemia, and methamphetamine abuse presented to [facility] ED with complaint of fever. Patient reports he has been experiencing fever, associated with generalized weakness, abdominal pain, presents with Kan catheter in place due to recent prostate surgery. Patient was seen and evaluated in the ED, laboratory data shows WBC 6.1, hemoglobin 9.5, hematocrit 28.7, platelets 203, sodium 130, potassium 4.0, BUN 23, creatinine 1.12, glucose 382, calcium 8.5, albumin 3.1, blood pressure 110/70, heart rate 136 trending down to 96, temperature 103.2 F trending down to 97.6 F, O2 saturation 95% on room air. Abdomen/pelvis CT revealing evidence of left sacroiliitis with gas and fluid extending into left pelvic muscles likely representing abscess; rectal wall thickening correlate for symptoms of proctitis; Kan catheter decompressed urinary bladder with wall thickening; hypodense appearance of the mildly enlarged prostate, cystitis and prostatitis or possible. Patient was started on IV antibiotic regimen vancomycin, 10/03: Patient has very high fevers up to 103, CT showing left sacroiliitis with gas fluid in 2 left pelvic muscles possible abscess. We will consult surgery. There is also proctitis and bladder wall thickening. We will continue broad- spectrum IV antibiotics. ?Concern of IVDU ,. Patient is tremulous mildly we will continue watching for alcohol withdrawal. We will monitor. We will need UDS. Significant hyperglycemia, diabetes likely complicating and/or causing wound/healing. Patient had recent prostate surgery and possible good fentanyl to be related to that, surgery is recommended urology evaluation. Urology consult placed. 10/04: DC patient's culture came VAC MRSA, already on vancomycin. Continue IV antibiotics. Surgery in urology following. Just adjust pain meds prn per patient.. Increase sliding scale, better control glucose,. Diet order was incorrect, fixed to low carb. We will start Lantus 20 HS,. Continue present therapy Sepsis, unspecified organism Febrile episodes Hypoalbuminemia Diabetes with hyperglycemia Ketosis, possible early DKA Hyponatremia Abdominal abscess Methamphetamine abuse Plan discussed with: Patient My Orders Orders - MARGAUX MCCORMACK MD Procedure Category Date Status Time Blood Culture POOJA 10/04/24 In Process 08:58 Glucose Blood PHA 10/04/24 In Process (Accu-Chek Comfort 16:00 Insulin R (Human) PHA 10/04/24 In Process (Insulin R) 16:00 Dextrose 50% Syringe PHA 10/04/24 In Process 13:30 * Urology Consult CONS 10/04/24 Transmitted 14:54 * Dietary Consult CONS 10/04/24 Transmitted 17:10 Cleanse Wound With CADE 10/04/24 In Process Wound Clean 11:16 Date of Service: Oct 04, 2024 Billing Provider: MARGAUX MCCORMACK MD Common Visit Codes: [id number] INP/OBS CARE(HIGH) MARGAUX MCCORMACK MD Oct 04, 2024 17:23
--- NOTE | 2024-10-04 18:33 | DVHINCON2 ---
Date of service: Oct 04, 2024 Referring Physician Jess Reason for Consultation fluid collection pelvis History of Present Illness chronicaaly ill man with meth abuse and diabetes with "sacroiliitis air pockets behind rectum;also noted flid clection midline extending from base of proste planes not clear extending behind bladder it appears anterior to calcified vas deferens which hug the bladder normally;possible affecting seminal vesicles which are in that area as well but not clearly seen as well. on 09/24 pt unserwent tansrectal needle aspiration of prostatic abscess obtained fluid which on culutre grew MRSA Past Medical History reviewed Past Surgical History reviewed Family History: Family history: Diabetes mellitus GRANDMOTHER (UNK) Allergies: Coded Allergies: No Known Drug Allergy (Unverified Allergy, Unknown, 10/03/24) Home Meds Reported Medications Semaglutide (Ozempic) 8 Mg/3 Ml Inj, 2 MG SC QWEEKLY for 28 Days, #3 10/03/24 Insulin Glargine (Lantus Solostar) 100 Unit/Ml Inj, 20 UNIT SC QPM for 75 Days, #15 10/03/24 Empagliflozin (Jardiance) 25 Mg Tab, 1 TAB PO DAILY for 90 Days, #90 08/24/24 Metformin Hydrochloride (Metformin Hcl) 1,000 Mg Tab, 1 TAB PO BID for 90 Days, #180 08/24/24 Atorvastatin Calcium (Lipitor) 10 Mg Tab, 1 TAB PO QPM for 90 Days, #90 05/10/23 Current Medications Current Medications Medications (Trade) Dose Ordered Sig/Dion Route PRN Reason Start Time Stop Time Status Last Admin Atorvastatin Calcium (Lipitor) 10 mg HS PO 10/03/24 22:00 10/03/24 21:10 Metronidazole 100 ml @ 100 mls/hr Q8H IV 10/03/24 20:00 10/04/24 11:52 Diagnostic Test (Pha) (Accu-Chek Comfort Curve T) 1 strip IQ4HR 10/04/24 16:00 10/04/24 15:51 Insulin Human Regular (InsuLIN R) IQ4HR SC 10/04/24 16:00 10/04/24 16:24 Dextrose 50 ml UD PRN IV Blood Sugar LESS THAN 60 10/04/24 13:30 Mupirocin (Bactroban 2% Ointment) 1 applic BID EACHNOSTRI 10/04/24 22:00 10/09/24 21:59 Insulin Glargine (Lantus) 20 units HS SC 10/04/24 22:00 Review of Systems reviewed Vital Signs Vital Signs Date Time Temp Pulse Resp B/P (MAP) Pulse Ox O2 Delivery O2 Flow Rate FiO2 10/04/24 16:39 98.4 111 16 95/57 (70) 95 98.4 10/04/24 08:00 Room Air* 0 21 Physical Exam nontender ext genitalia neg,shaikh draining clear urine Labs/Diagnostic Data Labs Test 10/04/24 16:21 10/04/24 05:15 10/03/24 15:00 10/03/24 04:25 Range/Units POC Glucose 335 H 70-106 mg/dl White Blood Count 4.9 4.4-10.8 10^3/uL Red Blood Count 3.06 L 4.5-5.90 10^6/uL Hemoglobin 8.6 L 13.5-17.5 g/dL Hematocrit 26.0 #L 41.0-53.0 % Mean Corpuscular Volume 84.7 80.0-100.0 fL Mean Corpuscular Hemoglobin 28.0 28.0-32.0 pg Mean Corpuscular Hemoglobin Concent 33.1 32.0-36.0 g/dL Red Cell Distribution Width 16.9 H 11.8-14.3 % Platelet Count 113 L 140-450 10^3/uL Mean Platelet Volume 9.6 6.9-10.8 fL Neutrophils (%) (Auto) 37.0-80.0 % Lymphocytes (%) (Auto) 10.0-50.0 % Monocytes (%) (Auto) 0.0-12.0 % Basophils (%) (Auto) 0.0-2.0 % Neutrophils # (Auto) 1.6-8.6 10 ^3/uL Lymphocytes # (Auto) 0.4-5.4 10 ^3/uL Monocytes # (Auto) 0-1.3 10 ^3/uL Differential Total Cells Counted 100.0 100 Neutrophils % (Manual) 71 37.0-80.0 Band Neutrophils % (Manual) 13 Lymphocytes % (Manual) 12 10.0-50.0 Monocytes % (Manual) 4 0-12 Eosinophils % (Manual) 0 0-7 Basophils % (Manual) 0 0.0-2.0 Metamyelocytes % (manual) 0 Myelocytes % (Manual) 0 Promyelocytes % (Manual) 0 Blast Cells % (Manual) 0 Reactive Lymphocytes 0 Platelet Estimate Decreased Sodium Level 134 L 136-145 mmol/L Potassium Level 3.5 3.5-5.1 mmol/L Chloride Level 98 98-107 mmol/L Carbon Dioxide Level 27 20-31 mmol/L Anion Gap 9 5-15 Blood Urea Nitrogen 20 9-23 mg/dL Creatinine 0.85 0.700-1.30 mg/dL Glomerular Filtration Rate Calc 113 >90 mL/min BUN/Creatinine Ratio 23.5 H 10.0-20.0 Serum Glucose 308 H 74-106 mg/dL Calcium Level 8.2 L 8.7-10.4 mg/dL Total Bilirubin < 0.2 L 0.2-1.0 mg/dL Aspartate Amino Transferase (AST) 46 H 13-40 U/L Alanine Aminotransferase (ALT) 19 7-40 U/L Alkaline Phosphatase 148 H 46-116 U/L Total Protein 6.2 5.7-8.2 g/dL Albumin 2.6 L 3.2-4.8 g/dL Urine Opiates Screen Neg NEGATIVE Urine Fentanyl Screen Neg NEGATIVE Urine Barbiturates Screen Neg NEGATIVE Urine Phencyclidine Screen Neg NEGATIVE Urine Amphetamines Screen Pos NEGATIVE Urine Benzodiazepines Screen Neg NEGATIVE Urine Cocaine Screen Neg NEGATIVE Urine Cannabinoids Screen Neg NEGATIVE Eosinophils (%) (Auto) 1.3 0.0-7.0 % Eosinophils # (Auto) 0.1 0-0.8 10 ^3/uL Basophils # (Auto) 0 0-0.2 10 ^3/uL Nucleated Red Blood Cells 0.2 % Test 10/02/24 21:24 10/02/24 03:01 Range/Units Prothrombin Time 12.3 H 9.3-11.8 sec Prothrombin Time INR 1.18 H 0.9-1.15 Activated Partial Thromboplast Time 34.4 24.5-34.5 SEC Lactic Acid Level 1.3 0.4-2.0 mmol/L Urine Color Colorless Yellow Urine Clarity Clear Clear Urine pH 5.0 5.0-9.0 Urine Specific [place] 1.020 1.001-1.035 Urine Protein Negative Negative Urine Ketones 1+ H Negative Urine Blood Trace H Negative /uL Urine Nitrite Negative Negative Urine Bilirubin Negative Negative Urine Urobilinogen Normal Negative mg/dL Urine Leukocyte Esterase Trace Negative /uL Urine RBC 1 0 - 3 /hpf Urine Microscopic WBC 13 H 0-3 /HPF Urine Squamous Epithelial Cells None seen <5 /hpf Urine Bacteria None seen None Seen /hpf Urine Glucose 4+ H Normal mg/dL Microbiology Date/Time Source Procedure Growth Status 10/03/24 00:00 Toe Gram Stain - Final Resulted 10/03/24 00:00 Toe Wound Culture - Preliminary Resulted 10/02/24 21:27 Blood Blood Culture - Preliminary Resulted Assessment possible prostatic abscess vs hematoma Plan/Recommendation continue IV fluids and hydration,agree with surgery to repeat CT on Sunday; may consider IR to do transgluteal drainage with indwelling drain; if fluid collection doesnt resolve Plan discussed with: Patient SWETA SHARMA MD Oct 04, 2024 18:33
[2024-10-04] MEDS: INSULIN LANTUS (GLARGINE) 1 /0.01ml (100units/ml) SC SCH (20:45)
[2024-10-04] MEDS: MUPIROCIN 2% OINT 15gm or 22gm FOR MRSA NARES EACHNOSTRI SCH (20:48)
[2024-10-05] VITALS (8 sets, daily range): BP systolic 100–126; BP diastolic 62–83; PULSE 98–116; RESP 16–20; TEMP 97.5–101.7; O2SAT 92–99
[2024-10-05 03:10] LABS: Hematocrit 26.2 % (41.0-53.0); Hemoglobin 8.5 g/dL (13.5-17.5); Mean Corpuscular Hemoglobin 27.3 pg (28.0-32.0); Mean Corpuscular Volume 83.9 fL (80.0-100.0)
[2024-10-05 07:01] LABS: Anisocytosis Slight; Total Cells Counted 100.0 (100)
--- NOTE | 2024-10-05 11:03 | DVHPN2 ---
Progress Note - Dictate Date Seen: Oct 05, 2024 Medical Necessity Reason Pt with a Central, PICC or Fol: No Subjective E: no major events o/n. no complaints. denies pain. ines reg diet well. vital signs Vital Sign Date Time Temp Pulse Resp B/P (MAP) Pulse Ox O2 Delivery O2 Flow Rate FiO2 10/05/24 09:00 99.5 98 17 100/68 (79) 95 99.5 10/04/24 20:00 Room Air* 0 21 Total Intake and Output 10/04/24 10/04/24 10/05/24 15:00 23:00 07:00 Intake Total 750 ml 532 ml 1398 ml Output Total 2150 ml 3800 ml Balance 750 ml -1618 ml -2402 ml medications Current Medications Medications Dose Ordered Sig/Dion Route Start Time Stop Time Status Last Admin Dose Admin Cefepime HCl 50 ml @ 12.5 mls/hr Q8HR@0300,1100,1900 IV 10/03/24 03:30 10/05/24 10:55 12.5 MLS/HR Atorvastatin Calcium 10 mg HS PO 10/03/24 22:00 10/04/24 20:47 10 MG Sodium Chloride 1,000 ml @ 120 mls/hr Q8H20M IV 10/02/24 23:00 10/05/24 03:46 120 MLS/HR Acetaminophen/ Hydrocodone Bitart 1 tab Q4HP PRN PO 10/02/24 23:00 10/04/24 23:23 1 TAB Ondansetron HCl 4 mg Q4HP PRN IV 10/02/24 23:00 Docusate Sodium 100 mg BIDPRN PRN PO 10/02/24 23:00 Acetaminophen 650 mg Q6HP PRN PO 10/02/24 23:00 10/04/24 05:35 650 MG Nitroglycerin 0.4 mg Q5MINP PRN SL 10/02/24 23:45 Morphine Sulfate 2 mg Q30M PRN IV 10/02/24 23:45 Vancomycin HCl 0 ml @ 0 mls/hr UD IV 10/02/24 23:45 Vancomycin HCl 100 ml @ 100 mls/hr Q12H IV 10/03/24 16:00 10/05/24 05:15 100 MLS/HR Metronidazole 100 ml @ 100 mls/hr Q8H IV 10/03/24 20:00 10/05/24 03:31 100 MLS/HR Diagnostic Test (Pha) 1 strip IQ4HR 10/04/24 16:00 10/05/24 07:57 1 STRIP Insulin Human Regular IQ4HR SC 10/04/24 16:00 10/05/24 08:21 3 UNITS Dextrose 50 ml UD PRN IV 10/04/24 13:30 Mupirocin 1 applic BID EACHNOSTRI 10/04/24 22:00 10/09/24 21:59 10/05/24 10:05 1 APPLIC Insulin Glargine 20 units HS SC 10/04/24 22:00 10/04/24 20:45 20 UNITS objective GEN: NAD ABD: soft. NT/ND. laboratory and microbiology Laboratory Tests 10/05/24 02:47 10/04/24 05:15 Test 10/04/24 05:15 Range/Units Serum Glucose 308 H 74-106 mg/dL Assessment/Plan A: 1. Recent prostate surgery with indwelling Kan catheter 2. Possible abscess in the sacroiliac region however clinically asymptomatic. P: 1. will cont iv abx and repeat f/u CT tomorrow. if no significant worsening, then cont treat conservatively. Plan discussed with: Patient WILFREDO CAR MD Oct 05, 2024 11:03
--- NOTE | 2024-10-05 14:37 | DVHPN2 ---
Subjective Patient is seen at bedside today. Appears ill, has poor historian, Reviewed: Care Plan Changes from previous H/P or p: No Changes General: Per HPI Eyes: No Pain, No Vision change, No Conjunctivae inflammation, No Eyelid inflammation, No Other, No Redness ENT: No Ear pain, No Ear discharge, No Nose pain, No Nose discharge, No Nose congestion, No Mouth pain, No Mouth swelling, No Throat pain, No Throat swelling, No Other Cardiovascular: No Chest Pain, No Palpitations, No Orthopnea, No Paroxysmal Noc. Dyspnea, No Edema, No Lt Headedness, No Other Respiratory: No Cough, No Dry, No Shortness of breath, No SOB with excertion, No Wheezing, No Hemoptysis, No Pleuritic Pain, No Sputum, No Other Gastrointestinal: No Nausea, No Vomiting; Abdominal Pain; No Diarrhea, No Constipation, No Melena, No Hematochezia, No Other Genitourinary: No Dysuria, No Frequency, No Incontinence, No Hematuria, No Retention; Other (Kan catheter in place) Musculoskeletal: No other, No neck pain, No shoulder pain, No arm pain, No back pain, No hand pain, No leg pain, No foot pain Skin: No Rash, No Lesions, No Jaundice, No Bruising, No Other Objective Vitals Vital Signs Date Time Temp Pulse Resp B/P (MAP) Pulse Ox O2 Delivery O2 Flow Rate FiO2 10/05/24 09:00 99.5 98 17 100/68 (79) 95 99.5 10/05/24 08:00 Room Air* 0 21 Intake/Output Intake and Output 10/05/24 07:00 Intake Total 2680 ml Output Total 5950 ml Balance -3270 ml Intake Oral 500 ml IV Total 2180 ml Output Urine Total 5950 ml Exam GEN: A&O times 1 HEENT: NC/AT; MMM. CV: Tachycardia, regular rhythm LUNGS: CTAB, no w/r/c. ABD: Soft, NT/ND, NBS, no masses or organomegaly. EXT: skin Warm, well perfused. no rashes. No clubbing, cyanosis, or edema. R ight toe wrapped in gauze, chronic ulcer NEURO: Ambulating with no limitations. No focal deficits. Medications Current Medications Medications Dose Ordered Sig/Dion Route Start Time Stop Time Status Last Admin Dose Admin Cefepime HCl 50 ml @ 12.5 mls/hr Q8HR@0300,1100,1900 IV 10/03/24 03:30 10/05/24 10:55 12.5 MLS/HR Atorvastatin Calcium 10 mg HS PO 10/03/24 22:00 10/04/24 20:47 10 MG Sodium Chloride 1,000 ml @ 120 mls/hr Q8H20M IV 10/02/24 23:00 10/05/24 03:46 120 MLS/HR Acetaminophen/ Hydrocodone Bitart 1 tab Q4HP PRN PO 10/02/24 23:00 10/04/24 23:23 1 TAB Ondansetron HCl 4 mg Q4HP PRN IV 10/02/24 23:00 Docusate Sodium 100 mg BIDPRN PRN PO 10/02/24 23:00 Acetaminophen 650 mg Q6HP PRN PO 10/02/24 23:00 10/04/24 05:35 650 MG Nitroglycerin 0.4 mg Q5MINP PRN SL 10/02/24 23:45 Morphine Sulfate 2 mg Q30M PRN IV 10/02/24 23:45 Vancomycin HCl 0 ml @ 0 mls/hr UD IV 10/02/24 23:45 Vancomycin HCl 100 ml @ 100 mls/hr Q12H IV 10/03/24 16:00 10/05/24 05:15 100 MLS/HR Metronidazole 100 ml @ 100 mls/hr Q8H IV 10/03/24 20:00 10/05/24 11:44 100 MLS/HR Diagnostic Test (Pha) 1 strip IQ4HR 10/04/24 16:00 10/05/24 11:44 1 STRIP Insulin Human Regular IQ4HR SC 10/04/24 16:00 10/05/24 11:55 8 UNITS Dextrose 50 ml UD PRN IV 10/04/24 13:30 Mupirocin 1 applic BID EACHNOSTRI 10/04/24 22:00 10/09/24 21:59 10/05/24 10:05 1 APPLIC Insulin Glargine 20 units HS SC 10/04/24 22:00 10/04/24 20:45 20 UNITS Laboratory Results Laboratory Tests 10/04/24 05:15 10/05/24 02:47 Urinalysis Test 10/02/24 03:01 Urine Color Colorless (Yellow) Urine Clarity Clear (Clear) Urine pH 5.0 (5.0-9.0) Urine Specific [place] 1.020 (1.001-1.035) Urine Protein Negative (Negative) Urine Ketones 1+ (Negative) H Urine Blood Trace /uL (Negative) H Urine Nitrite Negative (Negative) Urine Bilirubin Negative (Negative) Urine Urobilinogen Normal mg/dL (Negative) Urine Leukocyte Esterase Trace /uL (Negative) Urine RBC 1 /hpf (0 - 3) Urine Microscopic WBC 13 /HPF (0-3) H Urine Squamous Epithelial Cells None seen /hpf (<5) Urine Bacteria None seen /hpf (None Seen) Urine Glucose 4+ mg/dL (Normal) H Microbiology Microbiology Date/Time Source Procedure Growth Status 10/04/24 11:18 Blood Blood Culture - Preliminary Resulted 10/03/24 00:00 Toe Gram Stain - Final Resulted 10/03/24 00:00 Toe Wound Culture - Preliminary Resulted Labs and/or images reviewed: Labs reviewed by me, Image(s) reviewed by me Assessment/Plan Assessment/Plan patient is a 39-year-old male with past medical history of diabetes mellitus, MRSA of the urine, hyperlipidemia, and methamphetamine abuse presented to [facility] ED with complaint of fever. Patient reports he has been experiencing fever, associated with generalized weakness, abdominal pain, presents with Kan catheter in place due to recent prostate surgery. Patient was seen and evaluated in the ED, laboratory data shows WBC 6.1, hemoglobin 9.5, hematocrit 28.7, platelets 203, sodium 130, potassium 4.0, BUN 23, creatinine 1.12, glucose 382, calcium 8.5, albumin 3.1, blood pressure 110/70, heart rate 136 trending down to 96, temperature 103.2 F trending down to 97.6 F, O2 saturation 95% on room air. Abdomen/pelvis CT revealing evidence of left sacroiliitis with gas and fluid extending into left pelvic muscles likely representing abscess; rectal wall thickening correlate for symptoms of proctitis; Kan catheter decompressed urinary bladder with wall thickening; hypodense appearance of the mildly enlarged prostate, cystitis and prostatitis or possible. Patient was started on IV antibiotic regimen vancomycin, 10/03: Patient has very high fevers up to 103, CT showing left sacroiliitis with gas fluid in 2 left pelvic muscles possible abscess. We will consult surgery. There is also proctitis and bladder wall thickening. We will continue broad- spectrum IV antibiotics. ?Concern of IVDU ,. Patient is tremulous mildly we will continue watching for alcohol withdrawal. We will monitor. We will need UDS. Significant hyperglycemia, diabetes likely complicating and/or causing wound/healing. Patient had recent prostate surgery and possible good fentanyl to be related to that, surgery is recommended urology evaluation. Urology consult placed. 10/04: DC patient's culture came VAC MRSA, already on vancomycin. Continue IV antibiotics. Surgery in urology following. Just adjust pain meds prn per patient.. Increase sliding scale, better control glucose,. Diet order was incorrect, fixed to low carb. We will start Lantus 20 HS,. Continue present therapy 10/05: Patient appears altered today, had some visitors prior. Per RN patient has been normal for that. We will get stat CT, UDS and we will continue ongoing treatment and workup. Surgery and Urology both recommend continuing IV antibiotics, IR consult for possible drainage. Initial CT head negative, UDS negative. Patient continues to be confused had a fall. Repeating head CT again. Getting stat portable chest x-ray, repeat CBC CMP, TSH, ammonia, ABG stat, at sitter one-to-one, neurology consult for altered mental status Diagnosis Acute toxic metabolic encephalopathy Sepsis, unspecified organism Febrile episodes Hypoalbuminemia Diabetes with hyperglycemia Ketosis, possible early DKA Hyponatremia Abdominal abscess Methamphetamine abuse Vancomycin Ceftriaxone 2 g Pain control PRN Neurology consult for ALOC Metronidazole IV Stop cefepime NPO due to altered mental status Telemetry Full code Plan discussed with: Other My Orders Orders - MARGAUX MCCORMACK MD Procedure Category Date Status Time * Urology Consult CONS 10/04/24 Transmitted 14:54 * Dietary Consult CONS 10/04/24 Transmitted 17:10 Cleanse Wound With CADE 10/04/24 In Process Wound Clean 11:16 Consistent DIET 10/04/24 Transmitted Carb(Ccho)Diabetes Dinner Insulin Lantus PHA 10/04/24 In Process (Glargine) (Lantus) 22:00 Date of Service: Oct 05, 2024 Billing Provider: MARGAUX MCCORMACK MD Common Visit Codes: [id number] INP/OBS CARE(HIGH) MARGAUX MCCORMACK MD Oct 05, 2024 14:37
[2024-10-05 15:28] LABS: Amphetamine Screen, Urine Neg (NEGATIVE); Barbiturate Scree,Urine Neg (NEGATIVE); Benzodiazephine Screen, Urine Neg (NEGATIVE); Cannabinoid Screen, Urine Neg (NEGATIVE); Cocaine Screen, Urine Neg (NEGATIVE); Opiate Scree,Urine Neg (NEGATIVE); Phencyclidine Screen, Urine Neg (NEGATIVE)
--- NOTE | 2024-10-05 16:58 | DVH ---
COMPUTERIZED TOMOGRAPHY OF THE HEAD WITHOUT CONTRAST REASON FOR STUDY: Altered level of consciousness. COMPARISON: CT HEAD WITHOUT CONTRAST on DOS: 04/29/23 TECHNIQUE: Helical tomographic scans were obtained through the brain. 2-D coronal and sagittal refor matted images are provided. Radiation optimization: All CT scans at this facility use at least one of these dose optimization techniques: Automated exposure control mA and/or kV adjustment per patient s ize (includes targeted exams where dose is matched to clinical indication) or iterative reconstructio n. RADIATION DOSE: CTDI: 61 mGy DLP: 1105 mGy-cm FINDINGS: No suspicious intracranial hyperdensity to suggest acute blood. There is no mass effect n or midline shift. There is no hydrocephalus. The suprasellar cistern is intact. The calvarium is inta ct. The visualized mastoid air cells and paranasal sinuses are clear. IMPRESSION: No acute intracranial abnormality.
[2024-10-05 18:27] LABS: Base Excess 4.0 mmol/L (-2.0-3.0)
[2024-10-05 18:54] LABS: Hematocrit 28.0 % (41.0-53.0); Hemoglobin 9.0 g/dL (13.5-17.5); Mean Corpuscular Hemoglobin 27.1 pg (28.0-32.0); Mean Corpuscular Volume 84.6 fL (80.0-100.0)
[2024-10-05 19:36] LABS: Alanine Aminotransferase 16 U/L (7-40); Anion Gap 10 (5-15); BUN/Creatinine Ratio 22.2 (10.0-20.0); Blood Urea Nitrogen 14 mg/dL (9-23); Carbon Dioxide 25 mmol/L (20-31); Chloride 103 mmol/L (98-107); Sodium 138 mmol/L (136-145); Total Protein 6.3 g/dL (5.7-8.2)
[2024-10-05 19:37] LABS: Albumin 2.4 g/dL (3.2-4.8); Alkaline Phosphatase 118 U/L (46-116); Bilirubin, Total 0.2 mg/dL (0.2-1.0); Calcium 8.1 mg/dL (8.7-10.4); Glucose 162 mg/dL (74-106); Potassium 3.5 mmol/L (3.5-5.1)
[2024-10-05 20:02] LABS: Total Cells Counted 100.0 (100)
[2024-10-05] MEDS: LORazepam 2MG/ML-1ML VIAL IV PRN (21:01)
--- NOTE | 2024-10-05 21:42 | DVH ---
CT HEAD WITHOUT CONTRAST INDICATION: s/p fall COMPARISON: CT HEAD WITHOUT CONTRAST on DOS: 10/05/24, CT HEAD WITHOUT CONTRAST on DOS: 04/29/23 TECHNIQUE: CT of the head without intravenous contrast. RADIATION DOSE: CTDIvol: 47.71 mGy, DLP: 47.71 mGy*cm FINDINGS: There is hyperdensity in a left M2 segment with subtle hypodensity in the left insula/temporal opercu lum/temporal lobe consistent with acute infarct. No hemorrhage or mass effect. The remainder of the brain appears unremarkable. CSF spaces are normal with no hydrocephalus. Visuali zed paranasal sinuses, mastoid air cells and middle ear cavities are clear. Orbits appear unremarkabl e. Soft tissues and osseous structures are unremarkable. IMPRESSION: Acute left MCA territory infarct in left insula/temporal operculum/temporal lobe. No hemorrhage or ma ss effect.
--- NOTE | 2024-10-05 21:48 | DVH ---
CHEST RADIOGRAPH Indication: s/p fall Technique: Single frontal view of the chest was obtained COMPARISON: XY CHEST PORTABLE on DOS: 10/02/24 FINDINGS: Lines and Tubes: None Lungs: Clear Pleura: No pleural effusion. No pneumothorax. Cardiomediastinal contours: Unremarkable IMPRESSION: No abnormality demonstrated.
--- NOTE | 2024-10-05 22:59 | BSKYNEURO ---
[facility] Note # Demographics Consult Type: Acute Stroke Level 2 (4.5-24 hrs) Patient Location: Inpatient First Name: Arslan Last Name: Gerardo Date of : 1985 Age: 39 Gender: Male Facility: [facility] Time of Initial Page (): 10/05/2024 22:04 First Contact with Site (): 10/05/2024 22:04 # HPI History: 39 y/o M with Hx of DM and meth absue admitted 10/02 with fever 103, sepsis and pelvic abscess noted to have AMS today. # Scores Time of exam and NIHSS (): 10/05/2024 22:21 Level of Consciousness 1a: [3] = Responds only with reflex motor or unresponsive LOC Questions 1b: [2] = Answers neither correctly LOC Commands 1c: [2] = Performs neither correctly Best Gaze 2: [0] = Normal Visual 3: [0] = No visual loss Facial Palsy 4: [0] = Normal symmetrical movements Motor Arm Left 5a: [3] = No effort against gravity Motor Arm Right 5b: [3] = No effort against gravity Motor Leg Left 6a: [2] = Some effort against gravity Motor Leg Right 6b: [2] = Some effort against gravity Limb Ataxia 7: [0] = Absent Sensory 8: [0] = Normal Best Language 9: [3] = Mute Dysarthria 10: [0] = Normal Extinction and Inattention 11: [0] = No abnormality NIHSS Total: 20 # Data Time Head CT personally read by me (): 10/05/2024 22:[address]: - subacute ischemic stroke Lt temportal lobe # Assessment Impression: - Altered Mental Status subacute ischemic stroke # Plan Thrombolytic/Intervention: NOT IV Thrombolysis or IA Intervention candidate Thrombolytic Exclusion: > 4.5 hours Intraarterial Exclusion: - unfavorable imaging/hypodensity Target Blood Pressure: - SBP < 220 - DBP < 120 Labs: - lipid panel blood cultures Imaging: (urgency: STAT): - CT Angiogram Head and CT Angiogram Neck AND call back with results if abnormal Diagnostic Test: - echo with bubble study Therapy/Evaluation: - PT/OT evaluation - speech/swallow consultation Medication: - aspirin 81 mg daily Other: - If patient has any neurological deterioration please call me back immediately - LDL < 70 - telemetry monitoring - will need event monitor or loop recorder as outpatient if atrial fibrillation not found as inpatient permissive HTN 24 hrs # Logistics Attestation of consult completion: The patient is located at: [facility]. Facility staff participated in the visit. I performed this telemedicine visit from my offsite office utilizing interactive 2 way audio and visual telecommunication technology at the request of the onsite inpatient provider. Total time spent in telemedicine encounter: I spent 30 minutes reviewing clinical data and/or imaging, obtaining history, examining the patient, communicating with the onsite care team, and in preparation of this report. # Demographics First Name: Angeloambrosedemarcus Last Name: Gerardo Facility: [facility] Electronically signed at 10/05/2024 22:58 ([place] Time) by DO Caio Mackay ELIZABETH A DO Oct 05, 2024 22:59
[2024-10-06] VITALS (9 sets, daily range): BP systolic 114–149; BP diastolic 8–83; PULSE 109–149; RESP 17–83; TEMP 98–101.5; O2SAT 91–98
[2024-10-06] MEDS: IOHEXOL 350 MG/ML 100ML IJ ONE (01:43)
[2024-10-06] MEDS: VANCOMYCIN 750MG KIT 100 ML IV SCH (02:39)
--- NOTE | 2024-10-06 03:00 | DVH ---
INDICATION: Code Stroke COMPARISON: CT HEAD WITHOUT CONTRAST on DOS: 10/05/24, CT HEAD WITHOUT CONTRAST on DOS: 10/05/24, CT HE AD WITHOUT CONTRAST on DOS: 04/29/23 TECHNIQUE: CTA head without and with intravenous contrast. CTA neck with intravenous contrast. 3D image postprocessing was performed on a dedicated workstation and images were used for interpretation and reporting. Radiation Dose Information: CT Dose: CTDI volume is 22.38 mGy. Dose-length product is 844.36 mGy*cm FINDINGS: CT head: There is no evidence of acute intracranial hemorrhage, extra-axial collection, mass effect, midline s hift, herniation or hydrocephalus. The ventricles, sulci and cisterns are age appropriate. The khoury -white differentiation is intact. The visualized paranasal sinuses and mastoid air cells are clear. The surrounding soft tissues and osseous structures are unremarkable. CTA head: There is normal enhancement of the visualized distal internal carotid, anterior and middle cerebral a rteries. There is a normal anterior communicating artery complex. There are bilateral posterior com municating arteries. The vertebral, basilar, cerebellar and posterior cerebral arteries are within n ormal limits. The early parenchymal enhancement is grossly unremarkable. The visualized intracrania l venous structures are grossly unremarkable. CTA neck: The visualized thoracic aortic arch and proximal great vessels are unremarkable. The left common, internal and external carotid arteries are within normal limits. The right common, internal and external carotid arteries are within normal limits. The cervical segments of the right and left vertebral arteries are within normal limits. The limited visualized lung apices are clear. The surrounding soft tissues and osseous structures ar e otherwise unremarkable. IMPRESSION: 1. No evidence of acute intracranial hemorrhage, mass effect or hydrocephalus. 2. No evidence of hemodynamically significant intracranial stenosis, proximal occlusion or aneurysm. 3. No evidence of hemodynamically significant cervical stenosis or dissection. All CT scans at this medical facility are performed using dose modulation techniques as appropriate t o a performed exam including the following: Automated exposure control was utilized; adjustment of th e MA and/or KV according to patient size; and use of iterative reconstruction technique.
--- NOTE | 2024-10-06 04:26 | DVH ---
Exam: CT CT AB PEL WITH IV CON ONLY History: sacroiliac abscess COMPARISON: CT CT AB PEL WO CON-NO ORAL OR IV on DOS: 10/02/24, CT CT AB PEL WITH IV CON ONLY on DOS: 08/22/24 Technique: Multidetector spiral CT of the abdomen and pelvis was performed from lung bases to pubic s ymphysis. Intravenous contrast was administered during this examination. Portal venous imaging was o btained. Axial, coronal and sagittal multiplanar reformats were performed by the technologist on a [employer] workstation. Radiation Dose : 1. Abdomen/Pelvis: CTDIvol 17.76 mGy, DLP 1103.81 mGy*cm. CONTRAST: Type of contrast: Omnipaque 350 Contrast injected: 99 ml Findings: Lung Bases: Trace bilateral pleural effusions with adjacent atelectasis and patchy posterior bibasila r infiltrate. The heart is normal in size. No evidence of pericardial effusion. No evidence of pne umothorax. Liver: The liver is enlarged, measuring 25.5 cm in craniocaudal dimension. No focal lesions. Normal hepatic vascular enhancement. Gallbladder and Biliary Tree: Unremarkable Spleen: Unremarkable Pancreas: The pancreas is normal in appearance without focal lesions or abnormal enhancement. Adrenal Glands: Unremarkable Kidneys: No hydronephrosis. Bladder: Moderate gas within the urinary bladder. Kan catheter. Bowel: The stomach is grossly normal in appearance. Excess retained stool throughout the colon and re ctum. Moderately dilated proximal small bowel segments exhibiting air-fluid levels consistent with mo derate mechanical obstruction. The appendix is normal. Ascites: Absent Lymphadenopathy: No mesenteric, retroperitoneal or periportal lymphadenopathy. Abdominal Wall and Mesentery: Unremarkable. Vasculature: The visualized abdominal aorta is normal in size and caliber. Abdominal and pelvic vess els demonstrate normal enhancement. Pelvic Organs: Unremarkable Musculoskeletal: No aggressive focal bony lesions, acute fractures or dislocation. IMPRESSION: 1. Trace bilateral pleural effusions with adjacent atelectasis and patchy posterior bibasilar pulmona ry infiltrate. 2. Hepatomegaly. 3. Excess retained colorectal stool and moderate proximal mechanical small-bowel obstruction. 4. Moderate gas and Kan catheter within the urinary bladder. Radiation optimization: All CT scans at this facility use at least one of these dose optimization antwan hniques: automated exposure control mA and/or kV adjustment per patient size (includes targeted exam s where dose is matched to clinical indication) or iterative reconstruction.
[2024-10-06] MEDS ORDERED: DEXTROSE (50%) 50ML SYRG IV PRN (04:30)
[2024-10-06] MEDS: ACCU-CHEK COMFORT CURVE STRIP VI SCH (05:40)
[2024-10-06 06:53] LABS: Hematocrit 26.2 % (41.0-53.0); Hemoglobin 8.7 g/dL (13.5-17.5); Mean Corpuscular Hemoglobin 27.3 pg (28.0-32.0); Mean Corpuscular Volume 82.4 fL (80.0-100.0); Nucleated Red Blood Cells % 0.1 %
--- NOTE | 2024-10-06 10:41 | DVHPN2 ---
Subjective Patient is seen at bedside today. Appears ill, has poor historian, Reviewed: Care Plan Changes from previous H/P or p: No Changes General: Per HPI Eyes: No Pain, No Vision change, No Conjunctivae inflammation, No Eyelid inflammation, No Other, No Redness ENT: No Ear pain, No Ear discharge, No Nose pain, No Nose discharge, No Nose congestion, No Mouth pain, No Mouth swelling, No Throat pain, No Throat swelling, No Other Cardiovascular: No Chest Pain, No Palpitations, No Orthopnea, No Paroxysmal Noc. Dyspnea, No Edema, No Lt Headedness, No Other Respiratory: No Cough, No Dry, No Shortness of breath, No SOB with excertion, No Wheezing, No Hemoptysis, No Pleuritic Pain, No Sputum, No Other Gastrointestinal: No Nausea, No Vomiting; Abdominal Pain; No Diarrhea, No Constipation, No Melena, No Hematochezia, No Other Genitourinary: No Dysuria, No Frequency, No Incontinence, No Hematuria, No Retention; Other (Kan catheter in place) Musculoskeletal: No other, No neck pain, No shoulder pain, No arm pain, No back pain, No hand pain, No leg pain, No foot pain Skin: No Rash, No Lesions, No Jaundice, No Bruising, No Other Objective Vitals Vital Signs Date Time Temp Pulse Resp B/P (MAP) Pulse Ox O2 Delivery O2 Flow Rate FiO2 10/06/24 08:30 98.6 113 18 124/71 (88) 92 98.6 10/05/24 20:00 Room Air* 0 21 Intake/Output Intake and Output 10/06/24 07:00 Intake Total 2060 ml Output Total 5990 ml Balance -3930 ml Intake Oral 550 ml IV Total 1510 ml Output Urine Total 5990 ml Exam GEN: A&O times 1 HEENT: NC/AT; MMM. CV: Tachycardia, regular rhythm LUNGS: CTAB, no w/r/c. ABD: Soft, NT/ND, NBS, no masses or organomegaly. EXT: skin Warm, well perfused. no rashes. No clubbing, cyanosis, or edema. R ight toe wrapped in gauze, chronic ulcer NEURO: Ambulating with no limitations. No focal deficits. Medications Current Medications Medications Dose Ordered Sig/Dion Route Start Time Stop Time Status Last Admin Dose Admin Atorvastatin Calcium 10 mg HS PO 10/03/24 22:00 10/05/24 20:38 10 MG Sodium Chloride 1,000 ml @ 120 mls/hr Q8H20M IV 10/02/24 23:00 10/06/24 02:00 120 MLS/HR Acetaminophen/ Hydrocodone Bitart 1 tab Q4HP PRN PO 10/02/24 23:00 10/04/24 23:23 1 TAB Ondansetron HCl 4 mg Q4HP PRN IV 10/02/24 23:00 Docusate Sodium 100 mg BIDPRN PRN PO 10/02/24 23:00 Acetaminophen 650 mg Q6HP PRN PO 10/02/24 23:00 10/05/24 18:27 650 MG Nitroglycerin 0.4 mg Q5MINP PRN SL 10/02/24 23:45 Morphine Sulfate 2 mg Q30M PRN IV 10/02/24 23:45 Vancomycin HCl 0 ml @ 0 mls/hr UD IV 10/02/24 23:45 Metronidazole 100 ml @ 100 mls/hr Q8H IV 10/03/24 20:00 10/06/24 04:22 100 MLS/HR Mupirocin 1 applic BID EACHNOSTRI 10/04/24 22:00 10/09/24 21:59 10/06/24 10:24 1 APPLIC Vancomycin HCl 100 ml @ 100 mls/hr Q8H IV 10/06/24 02:00 10/06/24 10:24 100 MLS/HR Ceftriaxone Sodium/Dextrose 50 ml @ 50 mls/hr DAILY@0900 IV 10/06/24 09:00 10/06/24 09:38 50 MLS/HR Haloperidol Lactate 10 mg Q6HP PRN IM 10/05/24 19:30 Lorazepam 2 mg Q4HPRN PRN IV 10/05/24 19:30 10/05/24 21:01 2 MG Diagnostic Test (Pha) 1 strip Q6HR 10/06/24 06:00 10/06/24 05:40 1 STRIP Dextrose 50 ml UD PRN IV 10/06/24 04:30 Laboratory Results Laboratory Tests 10/05/24 18:40 10/06/24 05:39 Chemistry Test 10/05/24 18:40 Albumin 2.4 g/dL (3.2-4.8) L Calcium Level 8.1 mg/dL (8.7-10.4) L Total Protein 6.3 g/dL (5.7-8.2) LFT Test 10/05/24 18:40 Alanine Aminotransferase (ALT) 16 U/L (7-40) Alkaline Phosphatase 118 U/L (46-116) H Aspartate Amino Transferase (AST) 30 U/L (13-40) Total Bilirubin 0.2 mg/dL (0.2-1.0) Urinalysis Test 10/02/24 03:01 Urine Color Colorless (Yellow) Urine Clarity Clear (Clear) Urine pH 5.0 (5.0-9.0) Urine Specific [place] 1.020 (1.001-1.035) Urine Protein Negative (Negative) Urine Ketones 1+ (Negative) H Urine Blood Trace /uL (Negative) H Urine Nitrite Negative (Negative) Urine Bilirubin Negative (Negative) Urine Urobilinogen Normal mg/dL (Negative) Urine Leukocyte Esterase Trace /uL (Negative) Urine RBC 1 /hpf (0 - 3) Urine Microscopic WBC 13 /HPF (0-3) H Urine Squamous Epithelial Cells None seen /hpf (<5) Urine Bacteria None seen /hpf (None Seen) Urine Glucose 4+ mg/dL (Normal) H Blood Gas Results Test 10/05/24 18:15 Arterial Blood pH 7.532 (7.350-7.450) FiO2 % 21.0 Microbiology Microbiology Date/Time Source Procedure Growth Status 10/04/24 11:18 Blood Blood Culture - Final Methicillin Resistant S.aureus Complete 10/03/24 00:00 Toe Gram Stain - Final Resulted 10/03/24 00:00 Toe Wound Culture - Preliminary Resulted Labs and/or images reviewed: Labs reviewed by me, Image(s) reviewed by me Assessment/Plan Assessment/Plan patient is a 39-year-old male with past medical history of diabetes mellitus, MRSA of the urine, hyperlipidemia, and methamphetamine abuse presented to [facility] ED with complaint of fever. Patient reports he has been experiencing fever, associated with generalized weakness, abdominal pain, presents with Kan catheter in place due to recent prostate surgery. Patient was seen and evaluated in the ED, laboratory data shows WBC 6.1, hemoglobin 9.5, hematocrit 28.7, platelets 203, sodium 130, potassium 4.0, BUN 23, creatinine 1.12, glucose 382, calcium 8.5, albumin 3.1, blood pressure 110/70, heart rate 136 trending down to 96, temperature 103.2 F trending down to 97.6 F, O2 saturation 95% on room air. Abdomen/pelvis CT revealing evidence of left sacroiliitis with gas and fluid extending into left pelvic muscles likely representing abscess; rectal wall thickening correlate for symptoms of proctitis; Kan catheter decompressed urinary bladder with wall thickening; hypodense appearance of the mildly enlarged prostate, cystitis and prostatitis or possible. Patient was started on IV antibiotic regimen vancomycin, 10/03: Patient has very high fevers up to 103, CT showing left sacroiliitis with gas fluid in 2 left pelvic muscles possible abscess. We will consult surgery. There is also proctitis and bladder wall thickening. We will continue broad- spectrum IV antibiotics. ?Concern of IVDU ,. Patient is tremulous mildly we will continue watching for alcohol withdrawal. We will monitor. We will need UDS. Significant hyperglycemia, diabetes likely complicating and/or causing wound/healing. Patient had recent prostate surgery and possible good fentanyl to be related to that, surgery is recommended urology evaluation. Urology consult placed. 10/04: DC patient's culture came VAC MRSA, already on vancomycin. Continue IV antibiotics. Surgery in urology following. Just adjust pain meds prn per patient.. Increase sliding scale, better control glucose,. Diet order was incorrect, fixed to low carb. We will start Lantus 20 HS,. Continue present therapy 10/05: Patient appears altered today, had some visitors prior. Per RN patient has been normal for that. We will get stat CT, UDS and we will continue ongoing treatment and workup. Surgery and Urology both recommend continuing IV antibiotics, IR consult for possible drainage. Initial CT head negative, UDS negative. Patient continues to be confused had a fall. Repeating head CT again. Getting stat portable chest x-ray, repeat CBC CMP, TSH, ammonia, ABG stat, at sitter one-to-one, neurology consult for altered mental status 10/06: 2nd CT yesterday showed left MCA territory stroke. Patient's blood cultures continue to, with MRSA vanc sensitive. Continuing vanc. I am suspicious of endocarditis. We will get echocardiogram continue vanc. Not totally convinced of stroke causing confusion. Confusion/encephalopathy might be from sepsis, or other causes. We will hold off lumbar puncture right now and have follow up with Neurology to rule out meningitis/HSV encephalitis. Tomorrow we will get HIV/trapped antibody test. Start aspirin Plavix, statin, echo. Diagnosis Acute toxic metabolic encephalopathy Sepsis, unspecified organism Febrile episodes Hypoalbuminemia Diabetes with hyperglycemia Ketosis, possible early DKA Hyponatremia Abdominal abscess Methamphetamine abuse Vancomycin Ceftriaxone 2 g Pain control PRN Neurology consult for ALOC Metronidazole IV Stop cefepime NPO due to altered mental status Telemetry Full code Plan discussed with: Other My Orders Orders - MARGAUX MCCORMACK MD Procedure Category Date Status Time Head Without Contrast CT 10/05/24 Resulted 14:34 Abg W/ Co-Ox RT 10/05/24 Logged 18:[address] 10/05/24 Resulted 18:09 Ceftriaxone 2gm/50ml PHA 10/06/24 In Process D5w (Rocephin 2gm/5 09:00 Chest Xray 1 View XY 10/05/24 Resulted 18:13 Haloperidol Lactate PHA 10/05/24 In Process Injection (Haldol) 19:30 Lorazepam 2mg/Ml Inj PHA 10/05/24 In Process (Ativan Inj) 19:30 Hiv 1&2 Antibody LAB 10/07/24 Verified 04:00 Treponema Pallidum LAB 10/07/24 Verified Antibody 04:00 * Radiologist Consult CONS 10/06/24 Transmitted 09:27 Complete Blood Count LAB 10/07/24 Verified 04:00 Comprehensive LAB 10/07/24 Verified Metabolic Panel 04:00 Date of Service: Oct 06, 2024 Billing Provider: MARGAUX MCCORMACK MD Common Visit Codes: [id number] INP/OBS CARE(HIGH) MARGAUX MCCORMACK MD Oct 06, 2024 10:40
--- NOTE | 2024-10-06 13:23 | DVHPN2 ---
Progress Note - Dictate Date Seen: Oct 06, 2024 Medical Necessity Reason Pt with a Central, PICC or Fol: No Subjective E: no major events o/n. no complaints. denies pain. ines reg diet well. vital signs Vital Sign Date Time Temp Pulse Resp B/P (MAP) Pulse Ox O2 Delivery O2 Flow Rate FiO2 10/06/24 08:30 98.6 113 18 124/71 (88) 92 98.6 10/05/24 20:00 Room Air* 0 21 Total Intake and Output 10/05/24 10/05/24 10/06/24 15:00 23:00 07:00 Intake Total 150 ml 560 ml 1350 ml Output Total 3540 ml 250 ml 2200 ml Balance -3390 ml 310 ml -850 ml medications Current Medications Medications Dose Ordered Sig/Dion Route Start Time Stop Time Status Last Admin Dose Admin Atorvastatin Calcium 10 mg HS PO 10/03/24 22:00 10/05/24 20:38 10 MG Sodium Chloride 1,000 ml @ 120 mls/hr Q8H20M IV 10/02/24 23:00 10/06/24 02:00 120 MLS/HR Acetaminophen/ Hydrocodone Bitart 1 tab Q4HP PRN PO 10/02/24 23:00 10/04/24 23:23 1 TAB Ondansetron HCl 4 mg Q4HP PRN IV 10/02/24 23:00 Docusate Sodium 100 mg BIDPRN PRN PO 10/02/24 23:00 Acetaminophen 650 mg Q6HP PRN PO 10/02/24 23:00 10/05/24 18:27 650 MG Nitroglycerin 0.4 mg Q5MINP PRN SL 10/02/24 23:45 Morphine Sulfate 2 mg Q30M PRN IV 10/02/24 23:45 Vancomycin HCl 0 ml @ 0 mls/hr UD IV 10/02/24 23:45 Metronidazole 100 ml @ 100 mls/hr Q8H IV 10/03/24 20:00 10/06/24 12:02 100 MLS/HR Mupirocin 1 applic BID EACHNOSTRI 10/04/24 22:00 10/09/24 21:59 10/06/24 10:24 1 APPLIC Vancomycin HCl 100 ml @ 100 mls/hr Q8H IV 10/06/24 02:00 10/06/24 10:24 100 MLS/HR Ceftriaxone Sodium/Dextrose 50 ml @ 50 mls/hr DAILY@0900 IV 10/06/24 09:00 10/06/24 09:38 50 MLS/HR Haloperidol Lactate 10 mg Q6HP PRN IM 10/05/24 19:30 Lorazepam 2 mg Q4HPRN PRN IV 10/05/24 19:30 10/05/24 21:01 2 MG Diagnostic Test (Pha) 1 strip Q6HR 10/06/24 06:00 10/06/24 12:02 1 STRIP Dextrose 50 ml UD PRN IV 10/06/24 04:30 Enoxaparin Sodium 40 mg DAILY SC 10/07/24 10:00 objective GEN: NAD ABD: soft. NT/ND. CT ABD/PELVIS: repeat CT doesn't show abscess laboratory and microbiology Laboratory Tests 10/06/24 05:39 10/05/24 18:40 Test 10/05/24 18:40 Range/Units Serum Glucose 162 #H 74-106 mg/dL Assessment/Plan A: 1. Recent prostate surgery with indwelling Kan catheter P: 1. no acute surgical issues. surgery signing off. Dietary Evaluation Review Comments: 1) Add cardiac restriction to 60g CCHO diet 2) Initiate Glucerna qd. Encourage optimal PO intake 3) Follow-up with urology and surgery 4) Follow-up with manager social work r/t methamphetamine abuse 5) Continue to monitor I&O, labs, and skin integrity Expected Outcomes/Goals: 1) appetite and labs to improve 2) wound to improve 3) f/u in 3-5 days Plan discussed with: Patient WILFREDO CAR MD Oct 06, 2024 13:23
[2024-10-06 13:44] LABS: Hepatitis B Surface Antigen Negative (Negative); Hepatitis C Antibody Negative (Negative)
[2024-10-06] MEDS: ENOXAPARIN SOD 40 MG/0.4 ML SYRINGE SC ONE (14:38)
[2024-10-06] MEDS: HALOPERIDOL LACTATE 5 MG/ML INJ VIAL IM PRN (15:45)
[2024-10-06] MEDS: VANCOMYCIN 1GM/250ML KIT 250 ML IV SCH (18:45)
--- NOTE | 2024-10-06 19:01 | DVHSR ---
APPROVED REPORT EXAM: Two-dimensional and M-mode echocardiogram with Doppler and color Doppler. Blood Pressure: 124/71 mmHg INDICATION Endocarditis eval RISK FACTORS Height: 6'7", Weight: 212 DIMENSIONS LVDd (3.8-5.7cm)LA (2D)4.4 (1.9-4.0cm)Aortic Root3.8 (2.0-3.7cm) LVDs (2.5-4.0cm)LA (MM) (1.9-4.0cm)Aortic Cusp Exc1.6 (1.5-2.0cm) EF (%) 65.0 (55-70%)Rt. Atrium4.6 (1.9-4.0cm)Asc. Aorta cm IVSd (0.7-1.1cm)RV (D)4.3 (1.8-2.4cm) Mitral Valve MitralMitral Stenosis E wave1.09m/sMV Mean GR.mmHg A wave0.94m/sMV Peak GR.mmHg E/A ratio1.22D MVAcm2 DECEL [id number] 1/2 Tim[place] Aortic Valve Aortic ValveAortic Stenosis V11.07m/Carly Mean GR.5mmHg V21.60m/[place] Peak GR.10mmHg LVOT Diameter1.8 (1.8-2.4cm)Doppler AVA1.70cm2 Other Information Technically limited study due to body habitus, patient lying flat and altered. Conclusion Technically good study. Off axis views. Limited views obtained. There appears to be biatrial enlargement and LV enlargement. Mild aortic root enlargement. Valves appear to be structurally normal. Left ventricular function is borderline at 45 to 50% anteroseptal hypokinesis.. Normal RV function. Mild TR. No pericardial effusion masses or vegetations.
--- NOTE | 2024-10-06 22:05 | DVHINCON2 ---
Date of service: Oct 06, [address] Sanjeev Corbin Reason for Consultation CVA, rule out meningitis, HSV, VDRL History of Present Illness Mr. Velazquez is a 39 years old gentleman with a history of diabetes, GERD, bipolar disorder, schizophrenia, chronic diabetic ulcer, he was brought to the [facility] on 10/02/2024 with a chief company of fever, the patient is also noticed to have altered mental status, in the CT brain scan showed evidence suggestive of left MCA territory acute stroke. At this time, he is awake, but he keeps his eyes closed, there is resistance when I move his arms and legs. No family available for history Tele neurology consultation, 10/05/24: NIHSS: 20. He was not a candidate for IV thrombolysis or intra arterial intervention Temperature on 10/03/24: 103. T-max today: 101.5 not available. [phone] no answer Blood culture, 10/02/2024: MRSA Blood culture, 10/03/2024: MRSA Blood culture, 10/04/2024: MRSA UDS, 10/03/2024: Ms. Amphetamine, 09/3124: Negative Urinalysis, 10/02/2024: WBC: 30, urine leukocyte esterase: Trace WBC/HB/PLT/MCV, 10/06/2024: 5/8.7/130/82.4 PTT/INR/eight six, 10/02/2024: 12.3/1.18/34.4 CMP, 10/05/2024: Unremarkable HGB A1c, 05/10/2023: >14 Echocardiogram, 10/06/2024: Technically good study. Off axis views. Limited views obtained. There appears to be biatrial enlargement and LV enlargement. Mild aortic root enlargement. Valves appear to be structurally normal. Left ventricular function is borderline at 45 to 50% anteroseptal hypokinesis.. Normal RV function. Mild TR. No pericardial effusion masses or vegetations. CT head, 10/05/2024: Acute left MCA territory infarct in left insula/temporal operculum/temporal lobe. No hemorrhage or mass effect CT abdomen/pelvis, 10/06/2024: 1. Trace bilateral pleural effusions with adjacent atelectasis and patchy posterior bibasilar pulmonary infiltrate. 2. Hepatomegaly. 3. Excess retained colorectal stool and moderate proximal mechanical small-bowel obstruction. 4. Moderate gas and Kan catheter within the urinary bladder CTA head, neck, 10/05/2024: 1. No evidence of acute intracranial hemorrhage, mass effect or hydrocephalus. 2. No evidence of hemodynamically significant intracranial stenosis, proximal occlusion or aneurysm. 3. No evidence of hemodynamically significant cervical stenosis or dissection. Past Medical History Diabetes, GERD, schizophrenia, bipolar disorder, right toe chronic ulcer Past Surgical History Unobtainable Family History: Family history: Diabetes mellitus GRANDMOTHER (UNK) Family History Diabetes Social History Smoker: Non-Smoker Alcohol: Occasionally Drugs: Marijuana, Methamphetamine Allergies: Coded Allergies: No Known Drug Allergy (Unverified Allergy, Unknown, 10/03/24) Home Meds Reported Medications Semaglutide (Ozempic) 8 Mg/3 Ml Inj, 2 MG SC QWEEKLY for 28 Days, #3 10/03/24 Insulin Glargine (Lantus Solostar) 100 Unit/Ml Inj, 20 UNIT SC QPM for 75 Days, #15 10/03/24 Empagliflozin (Jardiance) 25 Mg Tab, 1 TAB PO DAILY for 90 Days, #90 08/24/24 Metformin Hydrochloride (Metformin Hcl) 1,000 Mg Tab, 1 TAB PO BID for 90 Days, #180 08/24/24 Atorvastatin Calcium (Lipitor) 10 Mg Tab, 1 TAB PO QPM for 90 Days, #90 05/10/23 Current Medications Current Medications Medications (Trade) Dose Ordered Sig/Dion Route PRN Reason Start Time Stop Time Status Last Admin Vancomycin HCl 100 ml @ 100 mls/hr Q8H IV 10/06/24 02:00 10/06/24 18:33 DC 10/06/24 10:24 Ceftriaxone Sodium/Dextrose 50 ml @ 50 mls/hr DAILY@0900 IV 10/06/24 09:00 10/06/24 09:38 Diagnostic Test (Pha) (Accu-Chek Comfort Curve T) 1 strip Q6HR 10/06/24 06:00 10/06/24 18:21 Dextrose 50 ml UD PRN IV Blood Sugar LESS THAN 60 10/06/24 04:30 Enoxaparin Sodium (Lovenox) 40 mg DAILY SC 10/07/24 10:00 Aspirin 81 mg DAILY PO 10/07/24 10:00 Clopidogrel Bisulfate (Plavix) 75 mg DAILY PO 10/07/24 10:00 Vancomycin HCl 250 ml @ 250 mls/hr Q6HR IV 10/06/24 18:00 10/06/24 18:45 Review of Systems Unavailable Vital Signs Vital Signs Date Time Temp Pulse Resp B/P (MAP) Pulse Ox O2 Delivery O2 Flow Rate FiO2 10/06/24 21:00 101.5 149 83 149/83 (105) 96 101.5 10/06/24 08:00 Room Air* 0 21 Physical Exam GENERAL EXAM: General: the patient is well developed and nourished. No acute distress. HEENT: Normocephalic, strong resistance to possible head movement, resistance versus rigidity, no carotid bruits. No mass. RESPIRATORY: Normal respiratory effort with symmetrical lung expansion. Lungs clear to auscultation. CARDIOVASCULAR: Regular rate and rhythm with no murmurs. S1, S2. ABDOMEN: Soft, nontender, normal bowel sound MUSCULOSKELETAL EXAM: Chronic ulcer in the right big toe, a small skin lesion in the left big toe NEUROLOGICAL: MENTAL STATUS: Subjective SPEECH, LANGUAGE, HIGHER CORTICAL FUNCTION: He does not vocalize CRANIAL NERVES: #2: Deferred #3,4,6: Pupils are equal, round and reactive. Questionable diverged eyes #5: Facial sensation intact in all three divisions bilaterally. Mandibular strength intact. #7: Facial muscles symmetrical and strength intact. #8: Deferred #9,10: Deferred #11: Deferred #12: Deferred SENSATION: Unable to examine MOTOR: Strong resistance to passive movement in all extremities, positive weakness in the right upper extremity. unable to examine muscle tone. No spontaneous extremity movement REFLEXES: Deep tendon reflexes feel symmetrical. No pathological reflexes. CEREBELLAR/COORDINATION: Deferred GAIT/STATION: deferred. Labs/Diagnostic Data Labs Test 10/06/24 17:10 10/06/24 05:39 10/05/24 18:40 10/05/24 18:15 Range/Units Vancomycin Level Trough 9.1 5-10 ug/mL White Blood Count 5.0 # 4.4-10.8 10^3/uL Red Blood Count 3.18 L 4.5-5.90 10^6/uL Hemoglobin 8.7 L 13.5-17.5 g/dL Hematocrit 26.2 L 41.0-53.0 % Mean Corpuscular Volume 82.4 80.0-100.0 fL Mean Corpuscular Hemoglobin 27.3 L 28.0-32.0 pg Mean Corpuscular Hemoglobin Concent 33.1 32.0-36.0 g/dL Red Cell Distribution Width 16.9 H 11.8-14.3 % Platelet Count 130 L 140-450 10^3/uL Mean Platelet Volume 9.4 6.9-10.8 fL Neutrophils (%) (Auto) 76.5 37.0-80.0 % Lymphocytes (%) (Auto) 12.1 10.0-50.0 % Monocytes (%) (Auto) 10.7 0.0-12.0 % Eosinophils (%) (Auto) 0.4 0.0-7.0 % Basophils (%) (Auto) 0.3 0.0-2.0 % Neutrophils # (Auto) 3.8 1.6-8.6 10 ^3/uL Lymphocytes # (Auto) 0.6 0.4-5.4 10 ^3/uL Monocytes # (Auto) 0.5 0-1.3 10 ^3/uL Eosinophils # (Auto) 0 0-0.8 10 ^3/uL Basophils # (Auto) 0 0-0.2 10 ^3/uL Nucleated Red Blood Cells 0.1 % Creatinine 0.69 L 0.700-1.30 mg/dL Glomerular Filtration Rate Calc 120 >90 mL/min Differential Total Cells Counted 100.0 100 Neutrophils % (Manual) 73 37.0-80.0 Band Neutrophils % (Manual) 5 Lymphocytes % (Manual) 13 10.0-50.0 Monocytes % (Manual) 8 0-12 Eosinophils % (Manual) 0 0-7 Basophils % (Manual) 0 0.0-2.0 Metamyelocytes % (manual) 0 Myelocytes % (Manual) 0 Promyelocytes % (Manual) 0 Blast Cells % (Manual) 0 Reactive Lymphocytes 1 Platelet Estimate Decreased Sodium Level 138 136-145 mmol/L Potassium Level 3.5 3.5-5.1 mmol/L Chloride Level 103 98-107 mmol/L Carbon Dioxide Level 25 20-31 mmol/L Anion Gap 10 5-15 Blood Urea Nitrogen 14 9-23 mg/dL BUN/Creatinine Ratio 22.2 H 10.0-20.0 Serum Glucose 162 #H 74-106 mg/dL Calcium Level 8.1 L 8.7-10.4 mg/dL Total Bilirubin 0.2 0.2-1.0 mg/dL Aspartate Amino Transferase (AST) 30 13-40 U/L Alanine Aminotransferase (ALT) 16 7-40 U/L Alkaline Phosphatase 118 H 46-116 U/L Ammonia < 10 L 11-32 umol/L Total Protein 6.3 5.7-8.2 g/dL Albumin 2.4 L 3.2-4.8 g/dL Blood Gas Specimen Type Arterial Blood Gas Sample Site Right radial Blood Gas Patient Temperature 37.0 Arterial Blood Date Drawn [id number] Arterial Blood pH 7.532 H 7.350-7.450 Arterial Blood Partial Pressure CO2 32.4 L 35.0-48.0 mmHg Arterial Blood Partial Pressure O2 64.2 L 83.0-108.0 mmHg Arterial Blood HCO3 26.6 21.0-28.0 mmol/L Arterial Blood Oxygen Saturation 92.9 L 94.0-98.0 % Arterial Blood Base Excess 4.0 H -2.0-3.0 mmol/L Arterial Blood Oxyhemoglobin 92.2 L 94.0-98.0 % Arterial Blood Carboxyhemoglobin 0.6 0.5-1.5 % Arterial Blood Methemoglobin 0.2 0.0-1.5 % Simone Test Modified Blood Gas Total Hemoglobin 9.60 L 13.5-17.5 g/dL Blood Gas Modality Room air FiO2 % 21.0 Test 10/05/24 15:02 10/05/24 11:48 10/05/24 02:47 10/03/24 04:25 Range/Units Urine Opiates Screen Neg NEGATIVE Urine Fentanyl Screen Neg NEGATIVE Urine Barbiturates Screen Neg NEGATIVE Urine Phencyclidine Screen Neg NEGATIVE Urine Amphetamines Screen Neg NEGATIVE Urine Benzodiazepines Screen Neg NEGATIVE Urine Cocaine Screen Neg NEGATIVE Urine Cannabinoids Screen Neg NEGATIVE POC Glucose 226 H 70-106 mg/dl Anisocytosis (manual) Slight Thyroid Stimulating Hormone (TSH) 1.36 0.55-4.78 uIU/mL Hepatitis B Surface Antigen Negative Negative Hepatitis C Antibody Negative Negative Test 10/02/24 21:24 10/02/24 03:01 Range/Units Prothrombin Time 12.3 H 9.3-11.8 sec Prothrombin Time INR 1.18 H 0.9-1.15 Activated Partial Thromboplast Time 34.4 24.5-34.5 SEC Lactic Acid Level 1.3 0.4-2.0 mmol/L Urine Color Colorless Yellow Urine Clarity Clear Clear Urine pH 5.0 5.0-9.0 Urine Specific [place] 1.020 1.001-1.035 Urine Protein Negative Negative Urine Ketones 1+ H Negative Urine Blood Trace H Negative /uL Urine Nitrite Negative Negative Urine Bilirubin Negative Negative Urine Urobilinogen Normal Negative mg/dL Urine Leukocyte Esterase Trace Negative /uL Urine RBC 1 0 - 3 /hpf Urine Microscopic WBC 13 H 0-3 /HPF Urine Squamous Epithelial Cells None seen <5 /hpf Urine Bacteria None seen None Seen /hpf Urine Glucose 4+ H Normal mg/dL Microbiology Date/Time Source Procedure Growth Status 10/04/24 11:18 Blood Blood Culture - Final Methicillin Resistant S.aureus Complete 10/03/24 00:00 Toe Gram Stain - Final Complete 10/03/24 00:00 Wound Culture - Final Methicillin Resistant S.aureus Enterococcus faecalis Complete Assessment Altered mental status, secondary to Acute stroke Metabolic encephalopathy Rule out intracranial infection Acute stroke per CT head Pelvis abscess Rule out endocarditis Sepsis with MRSA Chronic diabetic wound History of substance abuse Plan/Recommendation Monitoring Supportive treatment Telemetry Follow up blood tests LP with CSF profile HbA1c Lipitor profile EEG TIM MR head Aspirin 81 mg daily Lipitor 20 mg daily IV antibiotics Haldol p.r.n. for agitation Infectious disease consultation Surgery consultation Cardiology consultation Neurology consultation Radiology consultation Need to quit substance abuse More recommendation per clinical course Prognosis: Poor This medical document was created using an electronic medical record system with Mipso computerized dictation system. Although this document has been carefully reviewed, there may still be some phonetic and typographical errors. These areas are purely typographical due to imperfections of the software programs, and do not reflect any compromise in the patient's medical care. Plan discussed with: Other CALBE PAYNE MD Oct 06, 2024 22:05
[2024-10-06] MEDS ORDERED: LORazepam 2MG/ML-1ML VIAL IV PRN (22:45)
[2024-10-07] VITALS (9 sets, daily range): BP systolic 116–133; BP diastolic 70–85; PULSE 95–132; RESP 16–20; TEMP 97.8–100.6; O2SAT 92–98
[2024-10-07] MEDS: CLOPIDOGREL BISULFATE 75 MG TAB PO ONE (02:07)
[2024-10-07 09:38] LABS: Hematocrit 27.7 % (41.0-53.0); Hemoglobin 8.9 g/dL (13.5-17.5); Mean Corpuscular Hemoglobin 27.1 pg (28.0-32.0); Mean Corpuscular Volume 84.1 fL (80.0-100.0); Nucleated Red Blood Cells % 0.1 %
[2024-10-07 09:51] LABS: Alanine Aminotransferase 17 U/L (7-40); Alkaline Phosphatase 99 U/L (46-116); Anion Gap 11 (5-15); BUN/Creatinine Ratio 20.6 (10.0-20.0); Blood Urea Nitrogen 14 mg/dL (9-23); Carbon Dioxide 26 mmol/L (20-31); Chloride 107 mmol/L (98-107); Cholesterol 87 mg/dL (< 200); Potassium 3.8 mmol/L (3.5-5.1); Sodium 144 mmol/L (136-145); Total Protein 6.2 g/dL (5.7-8.2)
[2024-10-07 09:52] LABS: Albumin 2.3 g/dL (3.2-4.8); Bilirubin, Total 0.2 mg/dL (0.2-1.0); Calcium 7.8 mg/dL (8.7-10.4); Glucose 213 mg/dL (74-106); HDL Cholesterol 9 mg/dL (40-59); Triglycerides 153 mg/dL (< 150)
[2024-10-07] MEDS ORDERED: CLOPIDOGREL BISULFATE 75 MG TAB PO SCH (10:00)
[2024-10-07] MEDS: ENOXAPARIN SOD 40 MG/0.4 ML SYRINGE SC SCH (10:00)
--- NOTE | 2024-10-07 10:03 | DVHPN2 ---
Subjective Patient is seen at bedside today. Appears ill, has poor historian, Reviewed: Care Plan Changes from previous H/P or p: No Changes General: Per HPI Eyes: No Pain, No Vision change, No Conjunctivae inflammation, No Eyelid inflammation, No Other, No Redness ENT: No Ear pain, No Ear discharge, No Nose pain, No Nose discharge, No Nose congestion, No Mouth pain, No Mouth swelling, No Throat pain, No Throat swelling, No Other Cardiovascular: No Chest Pain, No Palpitations, No Orthopnea, No Paroxysmal Noc. Dyspnea, No Edema, No Lt Headedness, No Other Respiratory: No Cough, No Dry, No Shortness of breath, No SOB with excertion, No Wheezing, No Hemoptysis, No Pleuritic Pain, No Sputum, No Other Gastrointestinal: No Nausea, No Vomiting; Abdominal Pain; No Diarrhea, No Constipation, No Melena, No Hematochezia, No Other Genitourinary: No Dysuria, No Frequency, No Incontinence, No Hematuria, No Retention; Other (Kan catheter in place) Musculoskeletal: No other, No neck pain, No shoulder pain, No arm pain, No back pain, No hand pain, No leg pain, No foot pain Skin: No Rash, No Lesions, No Jaundice, No Bruising, No Other Objective Vitals Vital Signs Date Time Temp Pulse Resp B/P (MAP) Pulse Ox O2 Delivery O2 Flow Rate FiO2 10/07/24 08:45 97.8 98 16 121/76 (91) 98 97.8 10/07/24 08:05 Nasal Cannula* 2 28 Intake/Output Intake and Output 10/07/24 07:00 Intake Total 1270 ml Output Total 3900 ml Balance -2630 ml Intake Oral 920 ml IV Total 350 ml Output Urine Total 3900 ml Exam GEN: A&O times 1 HEENT: NC/AT; MMM. CV: Tachycardia, regular rhythm LUNGS: CTAB, no w/r/c. ABD: Soft, NT/ND, NBS, no masses or organomegaly. EXT: skin Warm, well perfused. no rashes. No clubbing, cyanosis, or edema. R ight toe wrapped in gauze, chronic ulcer NEURO: Ambulating with no limitations. No focal deficits. Medications Current Medications Medications Dose Ordered Sig/Dion Route Start Time Stop Time Status Last Admin Dose Admin Atorvastatin Calcium 10 mg HS PO 10/03/24 22:00 10/07/24 02:11 10 MG Sodium Chloride 1,000 ml @ 120 mls/hr Q8H20M IV 10/02/24 23:00 10/07/24 02:45 120 MLS/HR Acetaminophen/ Hydrocodone Bitart 1 tab Q4HP PRN PO 10/02/24 23:00 10/04/24 23:23 1 TAB Ondansetron HCl 4 mg Q4HP PRN IV 10/02/24 23:00 Docusate Sodium 100 mg BIDPRN PRN PO 10/02/24 23:00 Acetaminophen 650 mg Q6HP PRN PO 10/02/24 23:00 10/05/24 18:27 650 MG Nitroglycerin 0.4 mg Q5MINP PRN SL 10/02/24 23:45 Morphine Sulfate 2 mg Q30M PRN IV 10/02/24 23:45 Vancomycin HCl 0 ml @ 0 mls/hr UD IV 10/02/24 23:45 Mupirocin 1 applic BID EACHNOSTRI 10/04/24 22:00 10/09/24 21:59 10/06/24 22:07 1 APPLIC Ceftriaxone Sodium/Dextrose 50 ml @ 50 mls/hr DAILY@0900 IV 10/06/24 09:00 10/07/24 08:45 50 MLS/HR Haloperidol Lactate 10 mg Q6HP PRN IM 10/05/24 19:30 10/06/24 15:45 10 MG Lorazepam 2 mg Q4HPRN PRN IV 10/05/24 19:30 10/07/24 02:37 2 MG Diagnostic Test (Pha) 1 strip Q6HR 10/06/24 06:00 10/07/24 06:36 1 STRIP Dextrose 50 ml UD PRN IV 10/06/24 04:30 Enoxaparin Sodium 40 mg DAILY SC 10/07/24 10:00 Aspirin 81 mg DAILY PO 10/07/24 10:00 Vancomycin HCl 250 ml @ 250 mls/hr Q6HR IV 10/06/24 18:00 10/07/24 06:52 250 MLS/HR Lorazepam 1 mg ONCE PRN IV 10/06/24 22:45 Metronidazole 100 ml @ 100 mls/hr Q8H IV 10/07/24 06:00 10/07/24 05:30 100 MLS/HR Laboratory Results Laboratory Tests 10/07/24 09:00 Chemistry Test 10/07/24 09:00 Albumin 2.3 g/dL (3.2-4.8) L Calcium Level 7.8 mg/dL (8.7-10.4) L Total Protein 6.2 g/dL (5.7-8.2) Lipid panel Test 10/07/24 09:00 Cholesterol Level 87 mg/dL (< 200) HDL Cholesterol 9 mg/dL (40-59) L Triglycerides Level 153 mg/dL (< 150) H LFT Test 10/07/24 09:00 Alanine Aminotransferase (ALT) 17 U/L (7-40) Alkaline Phosphatase 99 U/L (46-116) Aspartate Amino Transferase (AST) 28 U/L (13-40) Total Bilirubin 0.2 mg/dL (0.2-1.0) Urinalysis Test 10/02/24 03:01 Urine Color Colorless (Yellow) Urine Clarity Clear (Clear) Urine pH 5.0 (5.0-9.0) Urine Specific [place] 1.020 (1.001-1.035) Urine Protein Negative (Negative) Urine Ketones 1+ (Negative) H Urine Blood Trace /uL (Negative) H Urine Nitrite Negative (Negative) Urine Bilirubin Negative (Negative) Urine Urobilinogen Normal mg/dL (Negative) Urine Leukocyte Esterase Trace /uL (Negative) Urine RBC 1 /hpf (0 - 3) Urine Microscopic WBC 13 /HPF (0-3) H Urine Squamous Epithelial Cells None seen /hpf (<5) Urine Bacteria None seen /hpf (None Seen) Urine Glucose 4+ mg/dL (Normal) H Microbiology Microbiology Date/Time Source Procedure Growth Status 10/04/24 11:18 Blood Blood Culture - Final Methicillin Resistant S.aureus Complete 10/03/24 00:00 Toe Gram Stain - Final Complete 10/03/24 00:00 Wound Culture - Final Methicillin Resistant S.aureus Enterococcus faecalis Complete Labs and/or images reviewed: Labs reviewed by me, Image(s) reviewed by me Assessment/Plan Assessment/Plan patient is a 39-year-old male with past medical history of diabetes mellitus, MRSA of the urine, hyperlipidemia, and methamphetamine abuse presented to [facility] ED with complaint of fever. Patient reports he has been experiencing fever, associated with generalized weakness, abdominal pain, presents with Kan catheter in place due to recent prostate surgery. Patient was seen and evaluated in the ED, laboratory data shows WBC 6.1, hemoglobin 9.5, hematocrit 28.7, platelets 203, sodium 130, potassium 4.0, BUN 23, creatinine 1.12, glucose 382, calcium 8.5, albumin 3.1, blood pressure 110/70, heart rate 136 trending down to 96, temperature 103.2 F trending down to 97.6 F, O2 saturation 95% on room air. Abdomen/pelvis CT revealing evidence of left sacroiliitis with gas and fluid extending into left pelvic muscles likely representing abscess; rectal wall thickening correlate for symptoms of proctitis; Kan catheter decompressed urinary bladder with wall thickening; hypodense appearance of the mildly enlarged prostate, cystitis and prostatitis or possible. Patient was started on IV antibiotic regimen vancomycin, 10/03: Patient has very high fevers up to 103, CT showing left sacroiliitis with gas fluid in 2 left pelvic muscles possible abscess. We will consult surgery. There is also proctitis and bladder wall thickening. We will continue broad- spectrum IV antibiotics. ?Concern of IVDU ,. Patient is tremulous mildly we will continue watching for alcohol withdrawal. We will monitor. We will need UDS. Significant hyperglycemia, diabetes likely complicating and/or causing wound/healing. Patient had recent prostate surgery and possible good fentanyl to be related to that, surgery is recommended urology evaluation. Urology consult placed. 10/04: DC patient's culture came VAC MRSA, already on vancomycin. Continue IV antibiotics. Surgery in urology following. Just adjust pain meds prn per patient.. Increase sliding scale, better control glucose,. Diet order was incorrect, fixed to low carb. We will start Lantus 20 HS,. Continue present therapy 10/05: Patient appears altered today, had some visitors prior. Per RN patient has been normal for that. We will get stat CT, UDS and we will continue ongoing treatment and workup. Surgery and Urology both recommend continuing IV antibiotics, IR consult for possible drainage. Initial CT head negative, UDS negative. Patient continues to be confused had a fall. Repeating head CT again. Getting stat portable chest x-ray, repeat CBC CMP, TSH, ammonia, ABG stat, at sitter one-to-one, neurology consult for altered mental status 10/06: 2nd CT yesterday showed left MCA territory stroke. Patient's blood cultures continue to, with MRSA vanc sensitive. Continuing vanc. I am suspicious of endocarditis. We will get echocardiogram continue vanc. Not totally convinced of stroke causing confusion. Confusion/encephalopathy might be from sepsis, or other causes. We will hold off lumbar puncture right now and have follow up with Neurology to rule out meningitis/HSV encephalitis. Tomorrow we will get HIV/trapped antibody test. Start aspirin Plavix, statin, echo. 10/07: Echo is negative for vegetations, blood cultures were redrawn pending. Neurology agrees with LP. Neurology also agrees with TIM. Consult placed. Treponemal antibody/HIV pending. Yesterday we restarted patient's bipolar medication Abilify. Continuing vanc/ceftriaxone/metronidazole. 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 Using Haldol and Ativan prn to control agitation, Diagnosis Acute toxic metabolic encephalopathy Sepsis, unspecified organism Febrile episodes Hypoalbuminemia Diabetes with hyperglycemia Ketosis, possible early DKA Hyponatremia Abdominal abscess Methamphetamine abuse Vancomycin Ceftriaxone 2 g Pain control PRN Neurology consult for ALOC Metronidazole IV Stop cefepime NPO due to altered mental status Telemetry Full code Plan discussed with: Other My Orders Orders - MARGAUX MCCORMACK MD Procedure Category Date Status Time Echo 2d Mode Cardiac US 10/06/24 Resulted DOP 10:41 Blood Culture POOJA 10/07/24 In Process 04:00 Enoxaparin Sodium PHA 10/07/24 In Process (Lovenox) 10:00 Pureed DIET 10/06/24 Transmitted Dinner Aspirin Tablet PHA 10/07/24 In Process 10:00 * Neurology Consult CONS 10/06/24 Transmitted 16:03 Metronidazole PHA 10/07/24 In Process 500mg/100ml (Flagyl 06:00 Date of Service: Oct 07, 2024 Billing Provider: MARGAUX MCCORMACK MD Common Visit Codes: [id number] INP/OBS CARE(HIGH) MARGAUX MCCORMACK MD Oct 07, 2024 10:03
--- NOTE | 2024-10-07 10:26 | DVHPN2 ---
Progress Note - Dictate Date Seen: Oct 07, 2024 Medical Necessity Reason Pt with a Central, PICC or Fol: No Subjective Mr. Velazquez is a 39 years old gentleman with a history of diabetes, GERD, bipolar disorder, schizophrenia, chronic diabetic ulcer, he was brought to the [facility] on 10/02/2024 with a chief company of fever, the patient is also noticed to have altered mental status, in the CT brain scan showed evidence suggestive of left MCA territory acute stroke. I have seen and examined the patient, talked to his nurse, dany, he is awake, eyes closed, he is responsive to his mother's voice. Not cooperative with physical examination, the strong resistance when when I open his eyes and move h is extremities, possible right arm weakness noticed I have talked to his mother today, she confirmed a past medical history of diabetes, bipolar disorder, schizophrenia, chronic ulcer in the foot, he has reports because of pain, he saw Dr. Baez, our urologist, and he went through prostate biopsy on 09/24/2024, and he was discharged home with the indwelling Kan catheterization. He was doing fine after the biopsy for one week, and then the pain worsened and he was taken to the [facility], but left AMA Later, he was found to be nonresponsive on the street, and he was taken to the [facility], where he recovered, and he checked him out. After he returned home, mother reports he is doing fine, good memory, good mentation, On 10/02/2024, he came to hospital because of fever, general weakness, Mother relates that he used to smoke tobacco, but now only uses marijuana, he u ses methamphetamine, but he has no history of alcohol abuse I have discussed with Dr. Jon, our interventional radiologist T-max today: 101.5 Blood culture, 10/02/2024: MRSA Blood culture, 10/03/2024: MRSA Blood culture, 10/04/2024: MRSA UDS, 10/03/2024: Ms. Amphetamine, 09/3124: Negative Urinalysis, 10/02/2024: WBC: 30, urine leukocyte esterase: Trace WBC/HB/PLT/MCV, 10/06/2024: 5/8.7/130/82.4 PTT/INR/eight six, 10/02/2024: 12.3/1.18/34.4 CMP, 10/05/2024: Unremarkable HGB A1c, 05/10/2023: >14 TG/HDL/LDL/HDL, 10/07/2024: 153/87/39/9 Echocardiogram, 10/06/2024: Technically good study. Off axis views. Limited views obtained. There appears to be biatrial enlargement and LV enlargement. Mild aortic root enlargement. Valves appear to be structurally normal. Left ventricular function is borderline at 45 to 50% anteroseptal hypokinesis.. Normal RV function. Mild TR. No pericardial effusion masses or vegetations. CT head, 10/05/2024: Acute left MCA territory infarct in left insula/temporal operculum/temporal lobe. No hemorrhage or mass effect CT abdomen/pelvis, 10/06/2024: 1. Trace bilateral pleural effusions with adjacent atelectasis and patchy posterior bibasilar pulmonary infiltrate. 2. Hepatomegaly. 3. Excess retained colorectal stool and moderate proximal mechanical small-bowel obstruction. 4. Moderate gas and Kan catheter within the urinary bladder CTA head, neck, 10/05/2024: 1. No evidence of acute intracranial hemorrhage, mass effect or hydrocephalus. 2. No evidence of hemodynamically significant intracranial stenosis, proximal occlusion or aneurysm. 3. No evidence of hemodynamically significant cervical stenosis or dissection vital signs Vital Sign Date Time Temp Pulse Resp B/P (MAP) Pulse Ox O2 Delivery O2 Flow Rate FiO2 10/07/24 08:45 97.8 98 16 121/76 (91) 98 97.8 10/07/24 08:05 Nasal Cannula* 2 28 Total Intake and Output 10/06/24 10/06/24 10/07/24 15:00 23:00 07:00 Intake Total 250 ml 120 ml 900 ml Output Total 1900 ml 2000 ml Balance 250 ml -1780 ml -1100 ml medications Current Medications Medications Dose Ordered Sig/Dion Route Start Time Stop Time Status Last Admin Dose Admin Acetaminophen/ Hydrocodone Bitart 1 tab Q4HP PRN PO 10/02/24 23:00 10/04/24 23:23 1 TAB Ondansetron HCl 4 mg Q4HP PRN IV 10/02/24 23:00 Docusate Sodium 100 mg BIDPRN PRN PO 10/02/24 23:00 Acetaminophen 650 mg Q6HP PRN PO 10/02/24 23:00 10/05/24 18:27 650 MG Nitroglycerin 0.4 mg Q5MINP PRN SL 10/02/24 23:45 Morphine Sulfate 2 mg Q30M PRN IV 10/02/24 23:45 Vancomycin HCl 0 ml @ 0 mls/hr UD IV 10/02/24 23:45 Mupirocin 1 applic BID EACHNOSTRI 10/04/24 22:00 10/09/24 21:59 10/06/24 22:07 1 APPLIC Ceftriaxone Sodium/Dextrose 50 ml @ 50 mls/hr DAILY@0900 IV 10/06/24 09:00 10/07/24 08:45 50 MLS/HR Haloperidol Lactate 10 mg Q6HP PRN IM 10/05/24 19:30 10/06/24 15:45 10 MG Lorazepam 2 mg Q4HPRN PRN IV 10/05/24 19:30 10/07/24 02:37 2 MG Diagnostic Test (Pha) 1 strip Q6HR 10/06/24 06:00 10/07/24 06:36 1 STRIP Dextrose 50 ml UD PRN IV 10/06/24 04:30 Enoxaparin Sodium 40 mg DAILY SC 10/07/24 10:00 Aspirin 81 mg DAILY PO 10/07/24 10:00 Vancomycin HCl 250 ml @ 250 mls/hr Q6HR IV 10/06/24 18:00 10/07/24 06:52 250 MLS/HR Lorazepam 1 mg ONCE PRN IV 10/06/24 22:45 Metronidazole 100 ml @ 100 mls/hr Q8H IV 10/07/24 06:00 10/07/24 05:30 100 MLS/HR Sodium Chloride 1,000 ml @ 75 mls/hr [id number] IV 10/07/24 10:00 UNV Atorvastatin Calcium 40 mg HS PO 10/07/24 22:00 UNV objective General: the patient is well developed and nourished. No acute distress. MUSCULOSKELETAL EXAM: Chronic ulcer in the right big toe, a small skin lesion in the left big toe MENTAL STATUS: Subjective SPEECH, LANGUAGE, HIGHER CORTICAL FUNCTION: He does not vocalize CRANIAL NERVES: Pupils are equal, round and reactive. Conjugated eye movement. Facial sensation intact in all three divisions bilaterally. Mandibular strength intact. Facial muscles symmetrical and strength intact. SENSATION: Unable to examine MOTOR: Strong resistance to passive movement in all extremities, questionable weakness in the right upper extremity. unable to examine muscle tone. No spontaneous extremity movement REFLEXES: Deep tendon reflexes feel symmetrical. No pathological reflexes. CEREBELLAR/COORDINATION: Deferred GAIT/STATION: deferred laboratory and microbiology Laboratory Tests 10/07/24 09:00 Test 10/07/24 09:00 Range/Units Serum Glucose 213 H 74-106 mg/dL Problem List Altered mental status, secondary to Acute stroke Metabolic encephalopathy Rule out intracranial infection Abnormal CT head Acute stroke Rule out encephalitis Pelvis abscess Rule out endocarditis Sepsis with MRSA Chronic diabetic wound History of substance abuse Assessment/Plan Monitoring Supportive treatment Telemetry Follow up blood tests LP with CSF profile (hold) EEG TIM MR head Aspirin 81 mg daily D/C Lipitor 20 mg daily (LDL: 39) IV antibiotics Haldol p.r.n. for agitation Infectious disease consultation Surgery consultation Cardiology consultation Neurology consultation Radiology consultation Need to quit substance abuse More recommendation per clinical course This medical document was created using an electronic medical record system with [employer] dictation system. Although this document has been carefully reviewed, there may still be some phonetic and typographical errors. These areas are purely typographical due to imperfections of the software programs, and do not reflect any compromise in the patient's medical care. Prognosis poor Dietary Evaluation Review Comments: 1) Add cardiac restriction to 60g CCHO diet 2) Initiate Glucerna qd. Encourage optimal PO intake 3) Follow-up with urology and surgery 4) Follow-up with family welfare social work professor r/t methamphetamine abuse 5) Continue to monitor I&O, labs, and skin integrity Expected Outcomes/Goals: 1) appetite and labs to improve 2) wound to improve 3) f/u in 3-5 days Plan discussed with: Other Total Time (mins): 40 CALEB JON MD Oct 07, 2024 10:26
[2024-10-07] MEDS: SODIUM CHLORIDE 0.9% 1,000 ML IV SCH (10:35)
--- NOTE | 2024-10-07 10:54 | ECG ---
[facility] Test Date: 2024-10-02 Test Time: 20:41:40 Pat Name: JOLENE FONTANAepartment: Room: 0234T A Gender: M Vocal Performer: LUIS ANGEL : 1985 Requested By: EMERGENCY EMERGENCY Order Number: [id number] Reading MD: Kp Saavedra Measurements Intervals [place] Rate: 133 P: 80 CA: 120 QRS: 85 QRSD: 67 T: 85 QT: 295 QTc: 439 Interpretive Statements Sinus tachycardia Nonspecific T abnormalities, lateral leads Electronically Signed On 10-09-2024 14:48:27 PDT by Kp Saavedra Please click the below link to view image of tracing.
--- NOTE | 2024-10-07 16:45 | DVHINCON2 ---
Date of service: Oct 07, 2024 Referring Physician Hospitalist Reason for Consultation prostate abscess History of Present Illness History Source: Family, RN Notes, MD Notes, Old Records Exam Limitations: Clinical condition HPI 39 yo male s/p periurethral/prostate abscess drainage 09/24/24. PMH of schizophrenia, substance abuse, uncontrolled DM, HLD, bacteremia, osteomyelitis, non compliance, PVD, and diabetic wounds to the feet (MRSA). Presented to ER with c/o fever. Kan catheter in place. During course of hospitalization patient had ALOC and a fall. CT head showed possibility of acute stroke. pt has been combative and his mother has been at bedside but unable to calm him so he has been sedated for safety. Home Meds Reported Medications Semaglutide (Ozempic) 8 Mg/3 Ml Inj, 2 MG SC QWEEKLY for 28 Days, #3 10/03/24 Insulin Glargine (Lantus Solostar) 100 Unit/Ml Inj, 20 UNIT SC QPM for 75 Days, #15 10/03/24 Empagliflozin (Jardiance) 25 Mg Tab, 1 TAB PO DAILY for 90 Days, #90 08/24/24 Metformin Hydrochloride (Metformin Hcl) 1,000 Mg Tab, 1 TAB PO BID for 90 Days, #180 08/24/24 Atorvastatin Calcium (Lipitor) 10 Mg Tab, 1 TAB PO QPM for 90 Days, #90 05/10/23 Past Medical History Psychiatric: Addictions, Bipolar, Schizophrenia Infectious Disease: MRSA Renal/: UTI Endocrine: IDDM Past Surgical History: Other (prostate abscess drainage) Patient Family History: Family history: Diabetes mellitus GRANDMOTHER (UNK) Drugs: Amphetimines Review of Systems Comments unable to obtain H&P Exam Vital Signs Vital Signs Date Time Temp Pulse Resp B/P (MAP) Pulse Ox O2 Delivery O2 Flow Rate FiO2 10/07/24 12:56 99.1 106 16 133/82 (99) 92 99.1 10/07/24 08:05 Nasal Cannula* 2 28 General Appeara: Well developed, Well nourished Neuro/Mental St: Lethargic Skin Exam: Pallor Labs/Xrays [address] [address] Ph: [phone] DIAGNOSTIC IMAGING Diagnostic Imaging Report : [id number] Signed PATIENT: NGUYỄN ESCALANTECCT: [id number] UNIT: [id number] : 1985 LOC: [facility] ROOM / BED: [facility]8T / B AGE / SEX: 39 / M ADM STATUS: ADM IN SERVICE 1632 ORDERING PHYSICIAN: MARGAUX MCCORMACK MD PROCEDURE(s): ABPL - CT AB PEL WO CON-NO ORAL OR IV REASON: FEVER ORDER NUMBER(s): [id number], ACCESSION NUMBER(s): [id number] Exam: CT CT AB PEL WO CON-NO ORAL OR IV History: fever Comparison Study: None Technique: Multidetector spiral CT of the abdomen was performed from lung bases to pubic symphysis. Imaging was performed without IV contrast. Axial, coronal and sagittal multiplanar reformats were obtained from the axial data set by the technologist. Radiation Dose : 1. Abdomen/Pelvis: CTDIvol 14.41 mGy, DLP 3.92 mGy*cm. Findings: Evaluation of solid organs is limited due to lack of intravenous contrast use. Assessment is further limited by streak artifact from arm down positioning, and lack of peritoneal fat. Lower Chest: No acute findings. Liver: Unremarkable. Gallbladder and Biliary Tree: Unremarkable Pancreas: Unremarkable. Spleen: Unremarkable. Adrenal Glands: Unremarkable. Kidneys/Ureters: No urinary stone or obstruction. Bladder: Decompressed around a Kan catheter with circumferential wall prominence. Pelvic Organs: Hypodense appearance of the prostate, which appears mildly enlarged. Bowel: Circumferential rectal wall thickening. No other evidence of wall thickening, or obstruction. Normal appendix. Vasculature: Mild atherosclerosis. [facility] RADIOLOGY REPORT PATIENT NAME: ANDREW HOLLOWAY : 1985 GENDER: M LOCATION: [facility] DOS: 10/02/2024 INTERPRETING PROVIDER: JOSE DOMINGO Lymphadenopathy: Bilaterally enlarged inguinal lymph nodes. No obvious intraperitoneal or retroperitoneal adenopathy. Peritoneum: No ascites, free air, or fluid collection. Abdominal Wall: Anasarca. Musculoskeletal: Erosive change of the left anterior superior sacroiliac joint with heterogeneous gas and fluid contents extending within the left iliopsoas muscles, and within external rotator muscles. Lucent lesion of L3 appears benign. IMPRESSION: 1. Limited exam. 2. Evidence of left sacroiliitis with gas and fluid extending into left pelvic muscles likely representing abscess. Suboptimal characterization due to lack of contrast. Bilateral inguinal adenopathy is likely reactive. 3. Rectal wall thickening, correlate for symptoms of proctitis. 4. Kan catheter decompressed urinary bladder with wall thickening. Hypodense appearance of the mildly enlarged prostate. Cystitis and prostatitis or possible. Radiation optimization: All CT scans at this facility use at least one of these dose optimization techniques: automated exposure control mA and/or kV adjustment per patient size (includes targeted exams where dose is matched to clinical indication) or iterative reconstruction. ATED BY: JOSE L GARCIA MD DICTATED DATE/TIME: 10/02/24 0601 SIGNED BY: JOSE L GARCIA MD SIGNED DATE/TIME: 10/03/24 1708 CC: [place] [id number] Ph: [phone] DIAGNOSTIC IMAGING Diagnostic Imaging Report : [id number] Signed PATIENT: NGUYỄN ESCALANTECCT: [id number] UNIT: [id number] : 1985 LOC: [facility] ROOM / BED: [address] [place] [address] AGE / SEX: 39 / M ADM STATUS: ADM IN SERVICE 33 ORDERING PHYSICIAN: NOAM CONCEPCION DO PROCEDURE(s): ABPL - CT AB PEL WO CON-NO ORAL OR IV REASON: fever ORDER NUMBER(s): [id number], ACCESSION NUMBER(s): [id number] Exam: CT CT AB PEL WO CON-NO ORAL OR IV History: fever Comparison Study: None Technique: Multidetector spiral CT of the abdomen was performed from lung bases to pubic symphysis. Imaging was performed without IV contrast. Axial, coronal and sagittal multiplanar reformats were obtained from the axial data set by the technologist. Radiation Dose : 1. Abdomen/Pelvis: CTDIvol 14.41 mGy, DLP 3.92 mGy*cm. Findings: Evaluation of solid organs is limited due to lack of intravenous contrast use. Assessment is further limited by streak artifact from arm down positioning, and lack of peritoneal fat. Lower Chest: No acute findings. Liver: Unremarkable. Gallbladder and Biliary Tree: Unremarkable Pancreas: Unremarkable. Spleen: Unremarkable. Adrenal Glands: Unremarkable. Kidneys/Ureters: No urinary stone or obstruction. Bladder: Decompressed around a Kan catheter with circumferential wall prominence. Pelvic Organs: Hypodense appearance of the prostate, which appears mildly enlarged. Bowel: Circumferential rectal wall thickening. No other evidence of wall thickening, or obstruction. Normal appendix. Vasculature: Mild atherosclerosis. Lymphadenopathy: Bilaterally enlarged inguinal lymph nodes. No obvious intraperitoneal or retroperitoneal adenopathy. Peritoneum: No ascites, free air, or fluid collection. Abdominal Wall: Anasarca. Musculoskeletal: Erosive change of the left anterior superior sacroiliac joint with heterogeneous gas and fluid contents extending within the left iliopsoas muscles, and within external rotator muscles. Lucent lesion of L3 appears benign. IMPRESSION: 1. Limited exam. 2. Evidence of left sacroiliitis with gas and fluid extending into left pelvic muscles likely representing abscess. Suboptimal characterization due to lack of contrast. Bilateral inguinal adenopathy is likely reactive. 3. Rectal wall thickening, correlate for symptoms of proctitis. 4. Kan catheter decompressed urinary bladder with wall thickening. Hypodense appearance of the mildly enlarged prostate. Cystitis and prostatitis or possible. Radiation optimization: All CT scans at this facility use at least one of these dose optimization techniques: automated exposure control mA and/or kV adjustment per patient size (includes targeted exams where dose is matched to clinical indication) or iterative reconstruction. ATED BY: JOSE L GARCIA MD DICTATED DATE/TIME: 10/02/242330 SIGNED BY: JOSE L GARCIA MD SIGNED DATE/TIME: 10/02/242330 CC: [place] [id number] Ph: [phone] DIAGNOSTIC IMAGING Diagnostic Imaging Report : [id number] Signed PATIENT: MAGGIE ESCALANTE: [id number] UNIT: [id number] : 1985 LOC: [facility] ROOM / BED: [facility]T / A AGE / SEX: 39 / M ADM STATUS: ADM IN SERVICE 0143 ORDERING PHYSICIAN: WILFREDO CAR MD PROCEDURE(s): ABPLIV - CT AB PEL WITH IV CON ONLY REASON: sacroiliac abscess ORDER NUMBER(s): [id number], ACCESSION NUMBER(s): [id number] Exam: CT CT AB PEL WITH IV CON ONLY History: sacroiliac abscess COMPARISON: CT CT AB PEL WO CON-NO ORAL OR IV on DOS: 10/02/24, CT CT AB PEL WITH IV CON ONLY on DOS: 08/22/24 Technique: Multidetector spiral CT of the abdomen and pelvis was performed from lung bases to pubic symphysis. Intravenous contrast was administered during this examination. Portal venous imaging was obtained. Axial, coronal and sagittal multiplanar reformats were performed by the technologist on a separate workstation. Radiation Dose : 1. Abdomen/Pelvis: CTDIvol 17.76 mGy, DLP 1103.81 mGy*cm. CONTRAST: Type of contrast: Omnipaque 350 Contrast injected: 99 ml Findings: Lung Bases: Trace bilateral pleural effusions with adjacent atelectasis and patchy posterior bibasilar infiltrate. The heart is normal in size. No evidence of pericardial effusion. No evidence of pneumothorax. Liver: The liver is enlarged, measuring 25.5 cm in craniocaudal dimension. No focal lesions. Normal hepatic vascular enhancement. Gallbladder and Biliary Tree: Unremarkable Spleen: Unremarkable Pancreas: The pancreas is normal in appearance without focal lesions or abnormal enhancement. Adrenal Glands: Unremarkable Kidneys: No hydronephrosis. Bladder: Moderate gas within the urinary bladder. Kan catheter. Bowel: The stomach is grossly normal in appearance. Excess retained stool throughout the colon and rectum. Moderately dilated proximal small bowel segments exhibiting air-fluid levels consistent with moderate mechanical obstruction. The appendix is normal. Ascites: Absent Lymphadenopathy: No mesenteric, retroperitoneal or periportal lymphadenopathy. Abdominal Wall and Mesentery: Unremarkable. Vasculature: The visualized abdominal aorta is normal in size and caliber. Abdominal and pelvic vessels demonstrate normal enhancement. Pelvic Organs: Unremarkable Musculoskeletal: No aggressive focal bony lesions, acute fractures or dislocation. IMPRESSION: 1. Trace bilateral pleural effusions with adjacent atelectasis and patchy posterior bibasilar pulmonary infiltrate. 2. Hepatomegaly. 3. Excess retained colorectal stool and moderate proximal mechanical small-bowel obstruction. 4. Moderate gas and Kan catheter within the urinary bladder. Radiation optimization: All CT scans at this facility use at least one of these dose optimization techniques: automated exposure control mA and/or kV adjustment per patient size (includes targeted exams where dose is matched to clinical indication) or iterative reconstruction. ATED BY: JAMAL ZAVALETA MD DICTATED DATE/TIME: 10/06/24422 SIGNED BY: JAMAL ZAVALETA MD SIGNED DATE/TIME: 10/06/24422 CC: Labs Test 10/07/24 13:01 10/07/24 09:00 10/05/24 18:40 10/05/24 18:15 Range/Units Vancomycin Level Trough 18.7 H 5-10 ug/mL HIV (1&2) Antibody Negative Negative White Blood Count 5.1 4.4-10.8 10^3/uL Red Blood Count 3.29 L 4.5-5.90 10^6/uL Hemoglobin 8.9 L 13.5-17.5 g/dL Hematocrit 27.7 L 41.0-53.0 % Mean Corpuscular Volume 84.1 80.0-100.0 fL Mean Corpuscular Hemoglobin 27.1 L 28.0-32.0 pg Mean Corpuscular Hemoglobin Concent 32.3 32.0-36.0 g/dL Red Cell Distribution Width 17.1 H 11.8-14.3 % Platelet Count 167 140-450 10^3/uL Mean Platelet Volume 8.5 6.9-10.8 fL Neutrophils (%) (Auto) 74.0 37.0-80.0 % Lymphocytes (%) (Auto) 13.1 10.0-50.0 % Monocytes (%) (Auto) 11.4 0.0-12.0 % Eosinophils (%) (Auto) 1.1 0.0-7.0 % Basophils (%) (Auto) 0.4 0.0-2.0 % Neutrophils # (Auto) 3.8 1.6-8.6 10 ^3/uL Lymphocytes # (Auto) 0.7 0.4-5.4 10 ^3/uL Monocytes # (Auto) 0.6 0-1.3 10 ^3/uL Eosinophils # (Auto) 0.1 0-0.8 10 ^3/uL Basophils # (Auto) 0 0-0.2 10 ^3/uL Nucleated Red Blood Cells 0.1 % Sodium Level 144 # 136-145 mmol/L Potassium Level 3.8 3.5-5.1 mmol/L Chloride Level 107 98-107 mmol/L Carbon Dioxide Level 26 20-31 mmol/L Anion Gap 11 5-15 Blood Urea Nitrogen 14 9-23 mg/dL Creatinine 0.68 L 0.700-1.30 mg/dL Glomerular Filtration Rate Calc 121 >90 mL/min BUN/Creatinine Ratio 20.6 H 10.0-20.0 Serum Glucose 213 H 74-106 mg/dL Calcium Level 7.8 L 8.7-10.4 mg/dL Total Bilirubin 0.2 0.2-1.0 mg/dL Aspartate Amino Transferase (AST) 28 13-40 U/L Alanine Aminotransferase (ALT) 17 7-40 U/L Alkaline Phosphatase 99 46-116 U/L Total Protein 6.2 5.7-8.2 g/dL Albumin 2.3 L 3.2-4.8 g/dL Triglycerides Level 153 H < 150 mg/dL Cholesterol Level 87 < 200 mg/dL LDL Cholesterol 39 < 100 mg/dL HDL Cholesterol 9 L 40-59 mg/dL Treponema pallidum Antibody Non-reactive Negative Differential Total Cells Counted 100.0 100 Neutrophils % (Manual) 73 37.0-80.0 Band Neutrophils % (Manual) 5 Lymphocytes % (Manual) 13 10.0-50.0 Monocytes % (Manual) 8 0-12 Eosinophils % (Manual) 0 0-7 Basophils % (Manual) 0 0.0-2.0 Metamyelocytes % (manual) 0 Myelocytes % (Manual) 0 Promyelocytes % (Manual) 0 Blast Cells % (Manual) 0 Reactive Lymphocytes 1 Platelet Estimate Decreased Ammonia < 10 L 11-32 umol/L Blood Gas Specimen Type Arterial Blood Gas Sample Site Right radial Blood Gas Patient Temperature 37.0 Arterial Blood Date Drawn [id number] Arterial Blood pH 7.532 H 7.350-7.450 Arterial Blood Partial Pressure CO2 32.4 L 35.0-48.0 mmHg Arterial Blood Partial Pressure O2 64.2 L 83.0-108.0 mmHg Arterial Blood HCO3 26.6 21.0-28.0 mmol/L Arterial Blood Oxygen Saturation 92.9 L 94.0-98.0 % Arterial Blood Base Excess 4.0 H -2.0-3.0 mmol/L Arterial Blood Oxyhemoglobin 92.2 L 94.0-98.0 % Arterial Blood Carboxyhemoglobin 0.6 0.5-1.5 % Arterial Blood Methemoglobin 0.2 0.0-1.5 % Simone Test Modified Blood Gas Total Hemoglobin 9.60 L 13.5-17.5 g/dL Blood Gas Modality Room air FiO2 % 21.0 Test 10/05/24 15:02 10/05/24 11:48 10/05/24 02:47 10/03/24 04:25 Range/Units Urine Opiates Screen Neg NEGATIVE Urine Fentanyl Screen Neg NEGATIVE Urine Barbiturates Screen Neg NEGATIVE Urine Phencyclidine Screen Neg NEGATIVE Urine Amphetamines Screen Neg NEGATIVE Urine Benzodiazepines Screen Neg NEGATIVE Urine Cocaine Screen Neg NEGATIVE Urine Cannabinoids Screen Neg NEGATIVE POC Glucose 226 H 70-106 mg/dl Anisocytosis (manual) Slight Thyroid Stimulating Hormone (TSH) 1.36 0.55-4.78 uIU/mL Hepatitis B Surface Antigen Negative Negative Hepatitis C Antibody Negative Negative Test 10/02/24 21:24 10/02/24 03:01 Range/Units Prothrombin Time 12.3 H 9.3-11.8 sec Prothrombin Time INR 1.18 H 0.9-1.15 Activated Partial Thromboplast Time 34.4 24.5-34.5 SEC Lactic Acid Level 1.3 0.4-2.0 mmol/L Urine Color Colorless Yellow Urine Clarity Clear Clear Urine pH 5.0 5.0-9.0 Urine Specific [place] 1.020 1.001-1.035 Urine Protein Negative Negative Urine Ketones 1+ H Negative Urine Blood Trace H Negative /uL Urine Nitrite Negative Negative Urine Bilirubin Negative Negative Urine Urobilinogen Normal Negative mg/dL Urine Leukocyte Esterase Trace Negative /uL Urine RBC 1 0 - 3 /hpf Urine Microscopic WBC 13 H 0-3 /HPF Urine Squamous Epithelial Cells None seen <5 /hpf Urine Bacteria None seen None Seen /hpf Urine Glucose 4+ H Normal mg/dL Microbiology Date/Time Source Procedure Growth Status 10/04/24 11:18 Blood Blood Culture - Final Methicillin Resistant S.aureus Complete 10/03/24 00:00 Toe Gram Stain - Final Complete 10/03/24 00:00 Wound Culture - Final Methicillin Resistant S.aureus Enterococcus faecalis Complete Assessment/Plan Problem List: (1) Methamphetamine abuse (2) Prostatic abscess (3) Osteomyelitis of toe of right foot (4) Methamphetamine abuse (5) Bacteremia due to methicillin resistant Staphylococcus aureus Plan continue medical management. MRI a/p with and without contrast for further evaluation of prostate abscess consult IR for drainage imaging reviewed, suspicious for vertebral osteomyelitis - hospitalist notified. Plan discussed with: Patient, Other [facility] NP Oct 07, 2024 16:45
--- NOTE | 2024-10-07 20:29 | DVH ---
CLINICAL HISTORY: evluate for osteomyelitis TECHNIQUE: CT of the left lower extremity was performed without intravenous contrast. This exam was p erformed according to our departmental dose optimization program. Up-to-date CT equipment and radiati on dose reduction techniques are utilized as appropriate. CTDI 7.8 DLP 242.5 COMPARISON: CT LEFT LOWER EXTREMITY W/O CON on DOS: 05/10/23, CT R FOOT WO CONTRAST on DOS: 11/21/21, R FOOT COMPLETE XRAY on DOS: 11/21/21, RFOOT on DOS: 11/21/21, R FOOT COMPLETE XRAY on DOS: 04/30/21 FINDINGS: There is deep plantar ulceration at the distal 1st phalanx. There is sclerosis and erosive changes in volving the distal 1st phalanx and distal aspect of the proximal 1st phalanx. There is irregular appe arance of the 1st IP joint with erosive changes at articular surface. There is surrounding soft tissu e swelling. There is diffuse atrophy of the foot intrinsic musculature. There is diffuse soft tissue swelling. Th ere is a small enthesophyte at that calcaneal search of the achilles tendon. There are vascular calci fications. IMPRESSION: Erosive changes involving the proximal and distal 1st phalanx with involvement of the IP joint. Given appearance on previous CT, this could represent sequela of prior osteomyelitis / septic arthritis. H owever, an acute component cannot be adequately assessed for on CT. MRI recommended for better evalua tion. Deep 1st digit plantar ulceration.
[2024-10-07] MEDS: VANCOMYCIN 1GM/250ML KIT 250 ML IV SCH (20:47)
[2024-10-07] MEDS ORDERED: ATORVASTATIN 20 MG TAB PO SCH (22:00)
[2024-10-08] VITALS (8 sets, daily range): BP systolic 108–134; BP diastolic 56–86; PULSE 100–121; RESP 18–21; TEMP 97.5–98.5; O2SAT 93–98
--- NOTE | 2024-10-08 09:23 | DVHPN2 ---
Subjective Patient is seen at bedside today. Appears ill, has poor historian, Reviewed: Care Plan Changes from previous H/P or p: No Changes General: Per HPI Eyes: No Pain, No Vision change, No Conjunctivae inflammation, No Eyelid inflammation, No Other, No Redness ENT: No Ear pain, No Ear discharge, No Nose pain, No Nose discharge, No Nose congestion, No Mouth pain, No Mouth swelling, No Throat pain, No Throat swelling, No Other Cardiovascular: No Chest Pain, No Palpitations, No Orthopnea, No Paroxysmal Noc. Dyspnea, No Edema, No Lt Headedness, No Other Respiratory: No Cough, No Dry, No Shortness of breath, No SOB with excertion, No Wheezing, No Hemoptysis, No Pleuritic Pain, No Sputum, No Other Gastrointestinal: No Nausea, No Vomiting; Abdominal Pain; No Diarrhea, No Constipation, No Melena, No Hematochezia, No Other Genitourinary: No Dysuria, No Frequency, No Incontinence, No Hematuria, No Retention; Other (Kan catheter in place) Musculoskeletal: No other, No neck pain, No shoulder pain, No arm pain, No back pain, No hand pain, No leg pain, No foot pain Skin: No Rash, No Lesions, No Jaundice, No Bruising, No Other Objective Vitals Vital Signs Date Time Temp Pulse Resp B/P (MAP) Pulse Ox O2 Delivery O2 Flow Rate FiO2 10/08/24 08:50 97.5 103 20 134/82 (99) 98 97.5 10/07/24 20:00 Nasal Cannula* 2 28 Intake/Output Intake and Output 10/08/24 07:00 Intake Total 3600 ml Output Total 3950 ml Balance -350 ml Intake Oral 1500 ml IV Total 2100 ml Output Urine Total 3950 ml Exam GEN: A&O times 1 HEENT: NC/AT; MMM. CV: Tachycardia, regular rhythm LUNGS: CTAB, no w/r/c. ABD: Soft, NT/ND, NBS, no masses or organomegaly. EXT: skin Warm, well perfused. no rashes. No clubbing, cyanosis, or edema. R ight toe wrapped in gauze, chronic ulcer NEURO: Ambulating with no limitations. No focal deficits. Medications Current Medications Medications Dose Ordered Sig/Dion Route Start Time Stop Time Status Last Admin Dose Admin Acetaminophen/ Hydrocodone Bitart 1 tab Q4HP PRN PO 10/02/24 23:00 10/04/24 23:23 1 TAB Ondansetron HCl 4 mg Q4HP PRN IV 10/02/24 23:00 Docusate Sodium 100 mg BIDPRN PRN PO 10/02/24 23:00 Acetaminophen 650 mg Q6HP PRN PO 10/02/24 23:00 10/05/24 18:27 650 MG Nitroglycerin 0.4 mg Q5MINP PRN SL 10/02/24 23:45 Morphine Sulfate 2 mg Q30M PRN IV 10/02/24 23:45 Vancomycin HCl 0 ml @ 0 mls/hr UD IV 10/02/24 23:45 Mupirocin 1 applic BID EACHNOSTRI 10/04/24 22:00 10/09/24 21:59 10/07/24 21:48 1 APPLIC Ceftriaxone Sodium/Dextrose 50 ml @ 50 mls/hr DAILY@0900 IV 10/06/24 09:00 10/07/24 08:45 50 MLS/HR Haloperidol Lactate 10 mg Q6HP PRN IM 10/05/24 19:30 10/07/24 17:36 10 MG Lorazepam 2 mg Q4HPRN PRN IV 10/05/24 19:30 10/08/24 06:42 2 MG Diagnostic Test (Pha) 1 strip Q6HR 10/06/24 06:00 10/08/24 05:48 1 STRIP Dextrose 50 ml UD PRN IV 10/06/24 04:30 Enoxaparin Sodium 40 mg DAILY SC 10/07/24 10:00 Aspirin 81 mg DAILY PO 10/07/24 10:00 Lorazepam 1 mg ONCE PRN IV 10/06/24 22:45 Metronidazole 100 ml @ 100 mls/hr Q8H IV 10/07/24 06:00 10/08/24 05:47 100 MLS/HR Sodium Chloride 1,000 ml @ 75 mls/hr [id number] IV 10/07/24 10:00 10/07/24 23:50 75 MLS/HR Vancomycin HCl 250 ml @ 250 mls/hr Q6H IV 10/07/24 21:00 10/08/24 02:38 250 MLS/HR Laboratory Results Laboratory Tests 10/07/24 09:00 Urinalysis Test 10/02/24 03:01 Urine Color Colorless (Yellow) Urine Clarity Clear (Clear) Urine pH 5.0 (5.0-9.0) Urine Specific [place] 1.020 (1.001-1.035) Urine Protein Negative (Negative) Urine Ketones 1+ (Negative) H Urine Blood Trace /uL (Negative) H Urine Nitrite Negative (Negative) Urine Bilirubin Negative (Negative) Urine Urobilinogen Normal mg/dL (Negative) Urine Leukocyte Esterase Trace /uL (Negative) Urine RBC 1 /hpf (0 - 3) Urine Microscopic WBC 13 /HPF (0-3) H Urine Squamous Epithelial Cells None seen /hpf (<5) Urine Bacteria None seen /hpf (None Seen) Urine Glucose 4+ mg/dL (Normal) H Microbiology Microbiology Date/Time Source Procedure Growth Status 10/07/24 09:07 Blood Blood Culture - Preliminary Resulted 10/03/24 00:00 Toe Gram Stain - Final Complete 10/03/24 00:00 Wound Culture - Final Methicillin Resistant S.aureus Enterococcus faecalis Complete Labs and/or images reviewed: Labs reviewed by me, Image(s) reviewed by me Assessment/Plan Assessment/Plan patient is a 39-year-old male with past medical history of diabetes mellitus, MRSA of the urine, hyperlipidemia, and methamphetamine abuse presented to [facility] ED with complaint of fever. Patient reports he has been experiencing fever, associated with generalized weakness, abdominal pain, presents with Kan catheter in place due to recent prostate surgery. Patient was seen and evaluated in the ED, laboratory data shows WBC 6.1, hemoglobin 9.5, hematocrit 28.7, platelets 203, sodium 130, potassium 4.0, BUN 23, creatinine 1.12, glucose 382, calcium 8.5, albumin 3.1, blood pressure 110/70, heart rate 136 trending down to 96, temperature 103.2 F trending down to 97.6 F, O2 saturation 95% on room air. Abdomen/pelvis CT revealing evidence of left sacroiliitis with gas and fluid extending into left pelvic muscles likely representing abscess; rectal wall thickening correlate for symptoms of proctitis; Kan catheter decompressed urinary bladder with wall thickening; hypodense appearance of the mildly enlarged prostate, cystitis and prostatitis or possible. Patient was started on IV antibiotic regimen vancomycin, 10/03: Patient has very high fevers up to 103, CT showing left sacroiliitis with gas fluid in 2 left pelvic muscles possible abscess. We will consult surgery. There is also proctitis and bladder wall thickening. We will continue broad- spectrum IV antibiotics. ?Concern of IVDU ,. Patient is tremulous mildly we will continue watching for alcohol withdrawal. We will monitor. We will need UDS. Significant hyperglycemia, diabetes likely complicating and/or causing wound/healing. Patient had recent prostate surgery and possible good fentanyl to be related to that, surgery is recommended urology evaluation. Urology consult placed. 10/04: DC patient's culture came VAC MRSA, already on vancomycin. Continue IV antibiotics. Surgery in urology following. Just adjust pain meds prn per patient.. Increase sliding scale, better control glucose,. Diet order was incorrect, fixed to low carb. We will start Lantus 20 HS,. Continue present therapy 10/05: Patient appears altered today, had some visitors prior. Per RN patient has been normal for that. We will get stat CT, UDS and we will continue ongoing treatment and workup. Surgery and Urology both recommend continuing IV antibiotics, IR consult for possible drainage. Initial CT head negative, UDS negative. Patient continues to be confused had a fall. Repeating head CT again. Getting stat portable chest x-ray, repeat CBC CMP, TSH, ammonia, ABG stat, at sitter one-to-one, neurology consult for altered mental status 10/06: CT yesterday showed left MCA territory stroke. Patient's blood cultures continue to, with MRSA vanc sensitive. Continuing vanc. I am suspicious of endocarditis. We will get echocardiogram continue vanc. Not totally convinced of stroke causing confusion. Confusion/encephalopathy might be from sepsis, or other causes. We will hold off lumbar puncture right now and have follow up with Neurology to rule out meningitis/HSV encephalitis. Tomorrow we will get HIV/trapped antibody test. Start aspirin Plavix, statin, echo. 10/07: Echo is negative for vegetations, blood cultures were redrawn pending. Neurology agrees with LP. Neurology also agrees with TIM. Consult placed. Treponemal antibody/HIV pending. Yesterday we restarted patient's bipolar medication Abilify. Continuing vanc/ceftriaxone/metronidazole. Pending official [employer], neurology is doing aspirin only, Plavix discontinued for cva, continue Lipitor... Using Haldol and Ativan prn to control agitation, 10/08: Patient continues to require Ativan due to behavioral issues due to sepsis encephalopathy on top of baseline behavioral bipolar disorder. Taking patient for LP today likely, cardiology is holding off TIM evaluation given patient is encephalopathic, patient's blood cultures 3rd time are both with early signs of Gram-positive cocci. Urology is getting MRI pelvis to evaluate for history of prostatic abscess. CT right great toe yesterday with chronic changes from osteomyelitis, this wound also showed MRSA. Pharmacy has some concern of vancomycin having low MAC. At this point it is unclear source of MRSA with recurrent MRSA, we will consult ID and continue to wait for improvement of patient's mental status to get TIM as concern for endocarditis emboli remains very possible given patient had left MCA stroke with clean coronaries. Diagnosis Acute toxic metabolic encephalopathy Sepsis, unspecified organism Febrile episodes Hypoalbuminemia Diabetes with hyperglycemia Ketosis, possible early DKA Hyponatremia Abdominal abscess Methamphetamine abuse Vancomycin Ceftriaxone 2 g Pain control PRN Neurology consult for ALOC Metronidazole IV Stop cefepime NPO due to altered mental status Telemetry Full code Plan discussed with: Patient My Orders Orders - MARGAUX MCCORMACK MD Procedure Category Date Status Time Sodium Chloride 0.9% PHA 10/07/24 In Process 10:00 Precautions: Droplet CADE 10/07/24 In Process 09:55 Csf Cell Count & Diff LAB 10/07/24 Logged 15:03 Csf Hsv1/2 Dna Pcr LAB 10/07/24 Logged 15:03 Csf Culture W/ Gram POOJA 10/07/24 Logged Stain 15:03 Vdrl, Cererbrospinal LAB 10/07/24 Logged Fluid 15:03 Complete Blood Count LAB 10/08/24 Logged 04:00 Ct R Foot Wo Contrast CT 10/07/24 Resulted 15:51 Date of Service: Oct 08, 2024 Billing Provider: MARGAUX MCCORMACK MD Common Visit Codes: [id number] INP/OBS CARE(HIGH) MARGAUX MCCORMACK MD Oct 08, 2024 09:23
[2024-10-08 09:51] LABS: Mean Corpuscular Hemoglobin 27.4 pg (28.0-32.0)
[2024-10-08 10:04] LABS: Hematocrit 25.8 % (41.0-53.0); Hemoglobin 8.4 g/dL (13.5-17.5); Mean Corpuscular Volume 83.8 fL (80.0-100.0); Nucleated Red Blood Cells % 0.0 %
--- NOTE | 2024-10-08 12:42 | DVHINCON2 ---
Date Seen: Oct 07, 2024 Referring Physician MD Dontrell Family History: Family history: Diabetes mellitus GRANDMOTHER (UNK) Allergies: Coded Allergies: No Known Drug Allergy (Unverified Allergy, Unknown, 10/03/24) Home Meds Reported Medications Semaglutide (Ozempic) 8 Mg/3 Ml Inj, 2 MG SC QWEEKLY for 28 Days, #3 10/03/24 Insulin Glargine (Lantus Solostar) 100 Unit/Ml Inj, 20 UNIT SC QPM for 75 Days, #15 10/03/24 Empagliflozin (Jardiance) 25 Mg Tab, 1 TAB PO DAILY for 90 Days, #90 08/24/24 Metformin Hydrochloride (Metformin Hcl) 1,000 Mg Tab, 1 TAB PO BID for 90 Days, #180 08/24/24 Atorvastatin Calcium (Lipitor) 10 Mg Tab, 1 TAB PO QPM for 90 Days, #90 05/10/23 Current Medications Current Medications Medications (Trade) Dose Ordered Sig/Dion Route PRN Reason Start Time Stop Time Status Last Admin Atorvastatin Calcium (Lipitor) 40 mg HS PO 10/07/24 22:00 10/07/24 10:25 DC Vancomycin HCl 250 ml @ 250 mls/hr Q6H IV 10/07/24 21:00 10/08/24 09:51 Vital Signs Vital Signs Date Time Temp Pulse Resp B/P (MAP) Pulse Ox O2 Delivery O2 Flow Rate FiO2 10/08/24 08:50 97.5 103 20 134/82 (99) 98 97.5 10/07/24 20:00 Nasal Cannula* 2 28 Labs/Diagnostic Data Labs Test 10/08/24 09:42 10/07/24 13:01 10/07/24 09:00 10/05/24 18:40 Range/Units White Blood Count 5.6 4.4-10.8 10^3/uL Red Blood Count 3.08 L 4.5-5.90 10^6/uL Hemoglobin 8.4 L 13.5-17.5 g/dL Hematocrit 25.8 L 41.0-53.0 % Mean Corpuscular Volume 83.8 80.0-100.0 fL Mean Corpuscular Hemoglobin 27.4 L 28.0-32.0 pg Mean Corpuscular Hemoglobin Concent 32.7 32.0-36.0 g/dL Red Cell Distribution Width 17.0 H 11.8-14.3 % Platelet Count 187 140-450 10^3/uL Mean Platelet Volume 8.0 6.9-10.8 fL Neutrophils (%) (Auto) 77.2 37.0-80.0 % Lymphocytes (%) (Auto) 12.8 10.0-50.0 % Monocytes (%) (Auto) 8.4 0.0-12.0 % Eosinophils (%) (Auto) 0.8 0.0-7.0 % Basophils (%) (Auto) 0.8 0.0-2.0 % Neutrophils # (Auto) 4.3 1.6-8.6 10 ^3/uL Lymphocytes # (Auto) 0.7 0.4-5.4 10 ^3/uL Monocytes # (Auto) 0.5 0-1.3 10 ^3/uL Eosinophils # (Auto) 0 0-0.8 10 ^3/uL Basophils # (Auto) 0 0-0.2 10 ^3/uL Nucleated Red Blood Cells 0.0 % Vancomycin Level Trough 18.7 H 5-10 ug/mL HIV (1&2) Antibody Negative Negative Erythrocyte Sedimentation Rate 102 H 0-20 mm/hr Sodium Level 144 # 136-145 mmol/L Potassium Level 3.8 3.5-5.1 mmol/L Chloride Level 107 98-107 mmol/L Carbon Dioxide Level 26 20-31 mmol/L Anion Gap 11 5-15 Blood Urea Nitrogen 14 9-23 mg/dL Creatinine 0.68 L 0.700-1.30 mg/dL Glomerular Filtration Rate Calc 121 >90 mL/min BUN/Creatinine Ratio 20.6 H 10.0-20.0 Serum Glucose 213 H 74-106 mg/dL Calcium Level 7.8 L 8.7-10.4 mg/dL Total Bilirubin 0.2 0.2-1.0 mg/dL Aspartate Amino Transferase (AST) 28 13-40 U/L Alanine Aminotransferase (ALT) 17 7-40 U/L Alkaline Phosphatase 99 46-116 U/L C-Reactive Protein High Sensitivity 19.31 H <1.0 mg/dL Total Protein 6.2 5.7-8.2 g/dL Albumin 2.3 L 3.2-4.8 g/dL Triglycerides Level 153 H < 150 mg/dL Cholesterol Level 87 < 200 mg/dL LDL Cholesterol 39 < 100 mg/dL HDL Cholesterol 9 L 40-59 mg/dL Treponema pallidum Antibody Non-reactive Negative Differential Total Cells Counted 100.0 100 Neutrophils % (Manual) 73 37.0-80.0 Band Neutrophils % (Manual) 5 Lymphocytes % (Manual) 13 10.0-50.0 Monocytes % (Manual) 8 0-12 Eosinophils % (Manual) 0 0-7 Basophils % (Manual) 0 0.0-2.0 Metamyelocytes % (manual) 0 Myelocytes % (Manual) 0 Promyelocytes % (Manual) 0 Blast Cells % (Manual) 0 Reactive Lymphocytes 1 Platelet Estimate Decreased Ammonia < 10 L 11-32 umol/L Test 10/05/24 18:15 10/05/24 15:02 10/05/24 11:48 10/05/24 02:47 Range/Units Blood Gas Specimen Type Arterial Blood Gas Sample Site Right radial Blood Gas Patient Temperature 37.0 Arterial Blood Date Drawn [id number] Arterial Blood pH 7.532 H 7.350-7.450 Arterial Blood Partial Pressure CO2 32.4 L 35.0-48.0 mmHg Arterial Blood Partial Pressure O2 64.2 L 83.0-108.0 mmHg Arterial Blood HCO3 26.6 21.0-28.0 mmol/L Arterial Blood Oxygen Saturation 92.9 L 94.0-98.0 % Arterial Blood Base Excess 4.0 H -2.0-3.0 mmol/L Arterial Blood Oxyhemoglobin 92.2 L 94.0-98.0 % Arterial Blood Carboxyhemoglobin 0.6 0.5-1.5 % Arterial Blood Methemoglobin 0.2 0.0-1.5 % Simone Test Modified Blood Gas Total Hemoglobin 9.60 L 13.5-17.5 g/dL Blood Gas Modality Room air FiO2 % 21.0 Urine Opiates Screen Neg NEGATIVE Urine Fentanyl Screen Neg NEGATIVE Urine Barbiturates Screen Neg NEGATIVE Urine Phencyclidine Screen Neg NEGATIVE Urine Amphetamines Screen Neg NEGATIVE Urine Benzodiazepines Screen Neg NEGATIVE Urine Cocaine Screen Neg NEGATIVE Urine Cannabinoids Screen Neg NEGATIVE POC Glucose 226 H 70-106 mg/dl Anisocytosis (manual) Slight Thyroid Stimulating Hormone (TSH) 1.36 0.55-4.78 uIU/mL Test 10/03/24 04:25 10/02/24 21:24 10/02/24 03:01 Range/Units Hepatitis B Surface Antigen Negative Negative Hepatitis C Antibody Negative Negative Prothrombin Time 12.3 H 9.3-11.8 sec Prothrombin Time INR 1.18 H 0.9-1.15 Activated Partial Thromboplast Time 34.4 24.5-34.5 SEC Lactic Acid Level 1.3 0.4-2.0 mmol/L Urine Color Colorless Yellow Urine Clarity Clear Clear Urine pH 5.0 5.0-9.0 Urine Specific [place] 1.020 1.001-1.035 Urine Protein Negative Negative Urine Ketones 1+ H Negative Urine Blood Trace H Negative /uL Urine Nitrite Negative Negative Urine Bilirubin Negative Negative Urine Urobilinogen Normal Negative mg/dL Urine Leukocyte Esterase Trace Negative /uL Urine RBC 1 0 - 3 /hpf Urine Microscopic WBC 13 H 0-3 /HPF Urine Squamous Epithelial Cells None seen <5 /hpf Urine Bacteria None seen None Seen /hpf Urine Glucose 4+ H Normal mg/dL Microbiology Date/Time Source Procedure Growth Status 10/07/24 09:07 Blood Blood Culture - Preliminary Resulted 10/03/24 00:00 Toe Gram Stain - Final Complete 10/03/24 00:00 Wound Culture - Final Methicillin Resistant S.aureus Enterococcus faecalis Complete Assessment Sepsis rule out subacute endocarditis Plan/Recommendation (Dr. Saavedra) Unable to proceed with transesophageal echocardiogram. Patient is ALOC, obtunded, not following commands which places him at a high-risk for airway complications. Kindly re-consult cardiology once mental status has improved. Plan discussed with: Other NYHA Physical activity limitations: NA Date of Service: Oct 07, 2024 Billing Provider: ARI WATKINS Cardiology Common Codes: NOT BILLABLE ARI WATKINS Oct 08, 2024 12:42
[2024-10-08] MEDS: VANCOMYCIN 1GM/250ML KIT 250 ML IV SCH (18:05)
--- NOTE | 2024-10-08 22:27 | DVHPN2 ---
Progress Note - Dictate Date Seen: Oct 08, 2024 Medical Necessity Reason Pt with a Central, PICC or Fol: No Subjective Mr. Velazquez is a 39 years old gentleman with a history of diabetes, GERD, bipolar disorder, schizophrenia, chronic diabetic ulcer, he was brought to the [facility] on 10/02/2024 with a chief company of fever, the patient is also noticed to have altered mental status, in the CT brain scan showed evidence suggestive of left MCA territory acute stroke. I have seen and examined the patient, talked to his nurse, dany, he is awake, eyes closed, muscle power feels okay, he is not cooperative with MRI T-max today: 100.6 Blood culture, 10/02/2024: MRSA Blood culture, 10/03/2024: MRSA Blood culture, 10/04/2024: MRSA UDS, 10/03/2024: MsAbad Amphetamine, 09/3124: Negative Urinalysis, 10/02/2024: WBC: 30, urine leukocyte esterase: Trace WBC/HB/PLT/MCV, 10/06/2024: 5/8.7/130/82.4 PTT/INR/eight six, 10/02/2024: 12.3/1.18/34.4 CMP, 10/05/2024: Unremarkable HGB A1c, 05/10/2023: >14 TG/HDL/LDL/HDL, 10/07/2024: 153/87/39/9 Echocardiogram, 10/06/2024: Technically good study. Off axis views. Limited views obtained. There appears to be biatrial enlargement and LV enlargement. Mild aortic root enlargement. Valves appear to be structurally normal. Left ventricular function is borderline at 45 to 50% anteroseptal hypokinesis.. Normal RV function. Mild TR. No pericardial effusion masses or vegetations. CT head, 10/05/2024: Acute left MCA territory infarct in left insula/temporal operculum/temporal lobe. No hemorrhage or mass effect CT abdomen/pelvis, 10/06/2024: 1. Trace bilateral pleural effusions with adjacent atelectasis and patchy posterior bibasilar pulmonary infiltrate. 2. Hepatomegaly. 3. Excess retained colorectal stool and moderate proximal mechanical small-bowel obstruction. 4. Moderate gas and Kan catheter within the urinary bladder CTA head, neck, 10/05/2024: 1. No evidence of acute intracranial hemorrhage, mass effect or hydrocephalus. 2. No evidence of hemodynamically significant intracranial stenosis, proximal occlusion or aneurysm. 3. No evidence of hemodynamically significant cervical stenosis or dissection vital signs Vital Sign Date Time Temp Pulse Resp B/P (MAP) Pulse Ox O2 Delivery O2 Flow Rate FiO2 10/08/24 20:00 105 Room Air* 0 21 10/08/24 16:32 98.1 18 114/77 (89) 97 98.1 Total Intake and Output 10/07/24 10/07/24 10/08/24 15:00 23:00 07:00 Intake Total 625 ml 1125 ml 1850 ml Output Total 1850 ml 2100 ml Balance 625 ml -725 ml -250 ml medications Current Medications Medications Dose Ordered Sig/Dion Route Start Time Stop Time Status Last Admin Dose Admin Acetaminophen/ Hydrocodone Bitart 1 tab Q4HP PRN PO 10/02/24 23:00 10/04/24 23:23 1 TAB Ondansetron HCl 4 mg Q4HP PRN IV 10/02/24 23:00 Docusate Sodium 100 mg BIDPRN PRN PO 10/02/24 23:00 Acetaminophen 650 mg Q6HP PRN PO 10/02/24 23:00 10/05/24 18:27 650 MG Nitroglycerin 0.4 mg Q5MINP PRN SL 10/02/24 23:45 Morphine Sulfate 2 mg Q30M PRN IV 10/02/24 23:45 Vancomycin HCl 0 ml @ 0 mls/hr UD IV 10/02/24 23:45 Mupirocin 1 applic BID EACHNOSTRI 10/04/24 22:00 10/09/24 21:59 10/08/24 22:12 1 APPLIC Ceftriaxone Sodium/Dextrose 50 ml @ 50 mls/hr DAILY@0900 IV 10/06/24 09:00 10/08/24 11:28 50 MLS/HR Haloperidol Lactate 10 mg Q6HP PRN IM 10/05/24 19:30 10/08/24 15:06 10 MG Lorazepam 2 mg Q4HPRN PRN IV 10/05/24 19:30 10/08/24 22:09 2 MG Diagnostic Test (Pha) 1 strip Q6HR 10/06/24 06:00 10/08/24 05:48 1 STRIP Dextrose 50 ml UD PRN IV 10/06/24 04:30 Enoxaparin Sodium 40 mg DAILY SC 10/07/24 10:00 Aspirin 81 mg DAILY PO 10/07/24 10:00 Lorazepam 1 mg ONCE PRN IV 10/06/24 22:45 Metronidazole 100 ml @ 100 mls/hr Q8H IV 10/07/24 06:00 10/08/24 22:10 100 MLS/HR Sodium Chloride 1,000 ml @ 75 mls/hr [id number] IV 10/07/24 10:00 10/07/24 23:50 75 MLS/HR Vancomycin HCl 250 ml @ 250 mls/hr Q8H IV 10/08/24 18:00 10/08/24 18:05 250 MLS/HR objective General: the patient is well developed and nourished. No acute distress. MUSCULOSKELETAL EXAM: Chronic ulcer in the right big toe, a small skin lesion in the left big toe MENTAL STATUS: Subjective SPEECH, LANGUAGE, HIGHER CORTICAL FUNCTION: He does not vocalize CRANIAL NERVES: Pupils are equal, round and reactive. Conjugated eye movement. Facial sensation intact in all three divisions bilaterally. Mandibular strength intact. Facial muscles symmetrical and strength intact. SENSATION: Unable to examine MOTOR: Strong resistance to passive movement in all extremities, questionable weakness in the right upper extremity. unable to examine muscle tone. No spontaneous extremity movement REFLEXES: Deep tendon reflexes feel symmetrical. No pathological reflexes. CEREBELLAR/COORDINATION: Deferred GAIT/STATION: deferred laboratory and microbiology Laboratory Tests 10/08/24 14:16 10/08/24 09:42 10/07/24 09:00 Test 10/07/24 09:00 Range/Units Serum Glucose 213 H 74-106 mg/dL Problem List Altered mental status, secondary to Acute stroke Metabolic encephalopathy Rule out intracranial infection Abnormal CT head Acute stroke Rule out encephalitis Pelvis abscess Rule out endocarditis Sepsis with MRSA Chronic diabetic wound History of substance abuse Assessment/Plan Monitoring Supportive treatment Telemetry Follow up blood tests LP with CSF profile (hold) EEG TIM Follow-up CT head MR head Aspirin 81 mg daily D/C Lipitor 20 mg daily (LDL: 39) IV antibiotics Haldol p.r.n. for agitation Infectious disease consultation Surgery consultation Cardiology consultation Neurology consultation Radiology consultation Need to quit substance abuse More recommendation per clinical course This medical document was created using an electronic medical record system with [employer] dictation system. Although this document has been carefully reviewed, there may still be some phonetic and typographical errors. These areas are purely typographical due to imperfections of the software programs, and do not reflect any compromise in the patient's medical care. Prognosis poor Dietary Evaluation Review Comments: 1) Add cardiac restriction to 60g CCHO diet 2) Initiate Glucerna qd. Encourage optimal PO intake 3) Follow-up with urology and surgery 4) Follow-up with director social service r/t methamphetamine abuse 5) Continue to monitor I&O, labs, and skin integrity Expected Outcomes/Goals: 1) appetite and labs to improve 2) wound to improve 3) f/u in 3-5 days Plan discussed with: Other Total Time (mins): 35 CALEB PAYNE MD Oct 08, 2024 22:27
--- NOTE | 2024-10-08 23:04 | DVHPN2 ---
Progress Note - Dictate Date Seen: Oct 08, 2024 Medical Necessity Reason Pt with a Central, PICC or Fol: No Subjective Mr. Velazquez is a 39 years old gentleman with a history of diabetes, GERD, bipolar disorder, schizophrenia, chronic diabetic ulcer, he was brought to the [facility] on 10/02/2024 with a chief company of fever, the patient is also noticed to have altered mental status, in the CT brain scan showed evidence suggestive of left MCA territory acute stroke. I have seen and examined the patient, talked to his nurse, dany, he is awake, eyes closed, muscle power feels okay, he is not cooperative with MRI T-max today: 100.6 Blood culture, 10/02/2024: MRSA Blood culture, 10/03/2024: MRSA Blood culture, 10/04/2024: MRSA UDS, 10/03/2024: MsAbad Amphetamine, 09/3124: Negative Urinalysis, 10/02/2024: WBC: 30, urine leukocyte esterase: Trace WBC/HB/PLT/MCV, 10/06/2024: 5/8.7/130/82.4 PTT/INR/eight six, 10/02/2024: 12.3/1.18/34.4 CMP, 10/05/2024: Unremarkable HGB A1c, 05/10/2023: >14 TG/HDL/LDL/HDL, 10/07/2024: 153/87/39/9 Echocardiogram, 10/06/2024: Technically good study. Off axis views. Limited views obtained. There appears to be biatrial enlargement and LV enlargement. Mild aortic root enlargement. Valves appear to be structurally normal. Left ventricular function is borderline at 45 to 50% anteroseptal hypokinesis.. Normal RV function. Mild TR. No pericardial effusion masses or vegetations. CT head, 10/05/2024: Acute left MCA territory infarct in left insula/temporal operculum/temporal lobe. No hemorrhage or mass effect CT abdomen/pelvis, 10/06/2024: 1. Trace bilateral pleural effusions with adjacent atelectasis and patchy posterior bibasilar pulmonary infiltrate. 2. Hepatomegaly. 3. Excess retained colorectal stool and moderate proximal mechanical small-bowel obstruction. 4. Moderate gas and Kan catheter within the urinary bladder CTA head, neck, 10/05/2024: 1. No evidence of acute intracranial hemorrhage, mass effect or hydrocephalus. 2. No evidence of hemodynamically significant intracranial stenosis, proximal occlusion or aneurysm. 3. No evidence of hemodynamically significant cervical stenosis or dissection vital signs Vital Sign Date Time Temp Pulse Resp B/P (MAP) Pulse Ox O2 Delivery O2 Flow Rate FiO2 10/08/24 21:00 98.3 121 21 122/69 (86) 97 98.3 10/08/24 20:00 Room Air* 0 21 Total Intake and Output 10/07/24 10/07/24 10/08/24 15:00 23:00 07:00 Intake Total 625 ml 1125 ml 1850 ml Output Total 1850 ml 2100 ml Balance 625 ml -725 ml -250 ml medications Current Medications Medications Dose Ordered Sig/Dion Route Start Time Stop Time Status Last Admin Dose Admin Acetaminophen/ Hydrocodone Bitart 1 tab Q4HP PRN PO 10/02/24 23:00 10/04/24 23:23 1 TAB Ondansetron HCl 4 mg Q4HP PRN IV 10/02/24 23:00 Docusate Sodium 100 mg BIDPRN PRN PO 10/02/24 23:00 Acetaminophen 650 mg Q6HP PRN PO 10/02/24 23:00 10/05/24 18:27 650 MG Nitroglycerin 0.4 mg Q5MINP PRN SL 10/02/24 23:45 Morphine Sulfate 2 mg Q30M PRN IV 10/02/24 23:45 Vancomycin HCl 0 ml @ 0 mls/hr UD IV 10/02/24 23:45 Mupirocin 1 applic BID EACHNOSTRI 10/04/24 22:00 10/09/24 21:59 10/08/24 22:12 1 APPLIC Ceftriaxone Sodium/Dextrose 50 ml @ 50 mls/hr DAILY@0900 IV 10/06/24 09:00 10/08/24 11:28 50 MLS/HR Haloperidol Lactate 10 mg Q6HP PRN IM 10/05/24 19:30 10/08/24 15:06 10 MG Lorazepam 2 mg Q4HPRN PRN IV 10/05/24 19:30 10/08/24 22:09 2 MG Diagnostic Test (Pha) 1 strip Q6HR 10/06/24 06:00 10/08/24 05:48 1 STRIP Dextrose 50 ml UD PRN IV 10/06/24 04:30 Enoxaparin Sodium 40 mg DAILY SC 10/07/24 10:00 Aspirin 81 mg DAILY PO 10/07/24 10:00 Lorazepam 1 mg ONCE PRN IV 10/06/24 22:45 Metronidazole 100 ml @ 100 mls/hr Q8H IV 10/07/24 06:00 10/08/24 22:10 100 MLS/HR Sodium Chloride 1,000 ml @ 75 mls/hr [id number] IV 10/07/24 10:00 10/07/24 23:50 75 MLS/HR Vancomycin HCl 250 ml @ 250 mls/hr Q8H IV 10/08/24 18:00 10/08/24 18:05 250 MLS/HR objective General: the patient is well developed and nourished. No acute distress. MUSCULOSKELETAL EXAM: Chronic ulcer in the right big toe, a small skin lesion in the left big toe MENTAL STATUS: Subjective SPEECH, LANGUAGE, HIGHER CORTICAL FUNCTION: He does not vocalize CRANIAL NERVES: Pupils are equal, round and reactive. Conjugated eye movement. Facial sensation intact in all three divisions bilaterally. Mandibular strength intact. Facial muscles symmetrical and strength intact. SENSATION: Unable to examine MOTOR: Strong resistance to passive movement in all extremities, questionable weakness in the right upper extremity. unable to examine muscle tone. No spontaneous extremity movement REFLEXES: Deep tendon reflexes feel symmetrical. No pathological reflexes. CEREBELLAR/COORDINATION: Deferred GAIT/STATION: deferred laboratory and microbiology Laboratory Tests 10/08/24 14:16 10/08/24 09:42 10/07/24 09:00 Test 10/07/24 09:00 Range/Units Serum Glucose 213 H 74-106 mg/dL Problem List Altered mental status, secondary to Acute stroke Metabolic encephalopathy Rule out intracranial infection Abnormal CT head Acute stroke Rule out encephalitis Pelvis abscess Rule out endocarditis Sepsis with MRSA Chronic diabetic wound History of substance abuse Assessment/Plan Monitoring Supportive treatment Telemetry Follow up blood tests LP with CSF profile (hold) EEG TIM Follow-up CT head MR head Aspirin 81 mg daily D/C Lipitor 20 mg daily (LDL: 39) IV antibiotics Haldol p.r.n. for agitation Infectious disease consultation Surgery consultation Cardiology consultation Neurology consultation Radiology consultation Need to quit substance abuse More recommendation per clinical course This medical document was created using an electronic medical record system with [employer] dictation system. Although this document has been carefully reviewed, there may still be some phonetic and typographical errors. These areas are purely typographical due to imperfections of the software programs, and do not reflect any compromise in the patient's medical care. Prognosis poor Dietary Evaluation Review Comments: 1) Add cardiac restriction to 60g CCHO diet 2) Initiate Glucerna qd. Encourage optimal PO intake 3) Follow-up with urology and surgery 4) Follow-up with social sciences lecturer r/t methamphetamine abuse 5) Continue to monitor I&O, labs, and skin integrity Expected Outcomes/Goals: 1) appetite and labs to improve 2) wound to improve 3) f/u in 3-5 days Plan discussed with: Other CALEB PAYNE MD Oct 08, 2024 23:04
[2024-10-09] VITALS (8 sets, daily range): BP systolic 100–133; BP diastolic 66–88; PULSE 95–114; RESP 18–22; TEMP 98–99.8; O2SAT 94–100
[2024-10-09] MEDS ORDERED: DEXTROSE (50%) 50ML SYRG IV PRN (01:15)
--- NOTE | 2024-10-09 01:15 | DVH ---
EXAM: CT HEAD WITHOUT CONTRAST INDICATION: CVA TECHNIQUE: CT of the head without intravenous contrast. Radiation Dose : 1. Head: CT Dose: CTDI volume is 59.89 mGy. Dose-length product is 2599.82 mGy*cm The dose indicators for CT are the volume Computed Tomography (CT) Dose Index (CTDIvol) and the Dose Length Product (DLP), and are measured in units of mGy and mGy-cm, respectively. These indicators are not patient dose, but values generated from the CT scanner acquisition factors. The report includes radiation exposure data for exposures received during this examination. COMPARISON: CT ANGIO HEAD/NECK on DOS: 10/06/24, CT HEAD WITHOUT CONTRAST on DOS: 10/05/24, CT HEAD WITH OUT CONTRAST on DOS: 10/05/24, CT HEAD WITHOUT CONTRAST on DOS: 04/29/23 FINDINGS: Interval progression and evolution of left middle cerebral artery territory infarct involving the ins marlon/temporal operculum / temporal lobe with loss of khoury-white matter differentiation and diminished parenchymal attenuation. There is no evidence of acute intracranial hemorrhage, extra-axial collection, mass effect, midline s hift, herniation or hydrocephalus. Persistent increased prominence of the ventricles, sulci and cisterns consistent with the sequelae of atrophic cortical volume loss. The khoury-white differentiation is otherwise intact. Stable appearing Moderate diffuse confluence periventricular and subcortical white matter hypoattenua tion is nonspecific but may be related to small vessel ischemic disease. The visualized paranasal sinuses and mastoid air cells are clear. The surrounding soft tissues and osseous structures are unremarkable. IMPRESSION: 1. Interval progression in evolution of left middle cerebral artery territory infarct involving the i nsula / temporal are operculum/ temporal lobe with associated loss of khoury-white matter differentiati on and progressively diminished parenchymal attenuation. 2. No evidence of intracranial hemorrhage, mass effect, midline shift or herniation. 3. Chronic sequelae of microangiopathy and atrophic cortical volume loss. Radiation optimization: All CT scans at this facility use at least one of these dose optimization antwan hniques: automated exposure control mA and/or kV adjustment per patient size (includes targeted exam s where dose is matched to clinical indication) or iterative reconstruction.
[2024-10-09] MEDS: InsuLIN REG 1unit/0.01ml Soln (100units/ml) SC SCH (05:09)
[2024-10-09] MEDS: ACCU-CHEK COMFORT CURVE STRIP VI SCH (05:10)
[2024-10-09 09:56] LABS: Mean Corpuscular Volume 85.5 fL (80.0-100.0)
[2024-10-09 09:58] LABS: Hematocrit 25.8 % (41.0-53.0); Hemoglobin 8.3 g/dL (13.5-17.5); Mean Corpuscular Hemoglobin 27.5 pg (28.0-32.0); Nucleated Red Blood Cells % 0.1 %
--- NOTE | 2024-10-09 13:09 | DVHPN2 ---
Subjective Patient is seen at bedside today. Appears ill, has poor historian, Reviewed: Care Plan Changes from previous H/P or p: No Changes General: Per HPI Eyes: No Pain, No Vision change, No Conjunctivae inflammation, No Eyelid inflammation, No Other, No Redness ENT: No Ear pain, No Ear discharge, No Nose pain, No Nose discharge, No Nose congestion, No Mouth pain, No Mouth swelling, No Throat pain, No Throat swelling, No Other Cardiovascular: No Chest Pain, No Palpitations, No Orthopnea, No Paroxysmal Noc. Dyspnea, No Edema, No Lt Headedness, No Other Respiratory: No Cough, No Dry, No Shortness of breath, No SOB with excertion, No Wheezing, No Hemoptysis, No Pleuritic Pain, No Sputum, No Other Gastrointestinal: No Nausea, No Vomiting; Abdominal Pain; No Diarrhea, No Constipation, No Melena, No Hematochezia, No Other Genitourinary: No Dysuria, No Frequency, No Incontinence, No Hematuria, No Retention; Other (Kan catheter in place) Musculoskeletal: No other, No neck pain, No shoulder pain, No arm pain, No back pain, No hand pain, No leg pain, No foot pain Skin: No Rash, No Lesions, No Jaundice, No Bruising, No Other Objective Vitals Vital Signs Date Time Temp Pulse Resp B/P (MAP) Pulse Ox O2 Delivery O2 Flow Rate FiO2 10/09/24 12:47 99.8 106 20 100/66 (77) 100 99.8 10/09/24 08:00 Room Air* 0 21 Intake/Output Intake and Output 10/09/24 07:00 Intake Total 2675 ml Output Total 3150 ml Balance -475 ml Intake Oral 1825 ml IV Total 850 ml Output Urine Total 3150 ml Exam GEN: A&O times 1 HEENT: NC/AT; MMM. CV: Tachycardia, regular rhythm LUNGS: CTAB, no w/r/c. ABD: Soft, NT/ND, NBS, no masses or organomegaly. EXT: skin Warm, well perfused. no rashes. No clubbing, cyanosis, or edema. R ight toe wrapped in gauze, chronic ulcer NEURO: Ambulating with no limitations. No focal deficits. Medications Current Medications Medications Dose Ordered Sig/Dion Route Start Time Stop Time Status Last Admin Dose Admin Acetaminophen/ Hydrocodone Bitart 1 tab Q4HP PRN PO 10/02/24 23:00 10/04/24 23:23 1 TAB Ondansetron HCl 4 mg Q4HP PRN IV 10/02/24 23:00 Docusate Sodium 100 mg BIDPRN PRN PO 10/02/24 23:00 Acetaminophen 650 mg Q6HP PRN PO 10/02/24 23:00 10/05/24 18:27 650 MG Nitroglycerin 0.4 mg Q5MINP PRN SL 10/02/24 23:45 Morphine Sulfate 2 mg Q30M PRN IV 10/02/24 23:45 Vancomycin HCl 0 ml @ 0 mls/hr UD IV 10/02/24 23:45 Mupirocin 1 applic BID EACHNOSTRI 10/04/24 22:00 10/09/24 21:59 10/09/24 10:06 1 APPLIC Ceftriaxone Sodium/Dextrose 50 ml @ 50 mls/hr DAILY@0900 IV 10/06/24 09:00 10/09/24 10:06 50 MLS/HR Haloperidol Lactate 10 mg Q6HP PRN IM 10/05/24 19:30 10/09/24 10:02 10 MG Lorazepam 2 mg Q4HPRN PRN IV 10/05/24 19:30 10/09/24 08:32 2 MG Dextrose 50 ml UD PRN IV 10/06/24 04:30 Enoxaparin Sodium 40 mg DAILY SC 10/07/24 10:00 10/09/24 10:07 40 MG Lorazepam 1 mg ONCE PRN IV 10/06/24 22:45 Metronidazole 100 ml @ 100 mls/hr Q8H IV 10/07/24 06:00 10/09/24 05:10 100 MLS/HR Sodium Chloride 1,000 ml @ 75 mls/hr [id number] IV 10/07/24 10:00 10/07/24 23:50 75 MLS/HR Vancomycin HCl 250 ml @ 250 mls/hr Q8H IV 10/08/24 18:00 10/09/24 11:36 250 MLS/HR Diagnostic Test (Pha) 1 strip IQ4HR 10/09/24 04:00 10/09/24 12:28 1 STRIP Insulin Human Regular IQ4HR SC 10/09/24 04:00 10/09/24 12:29 6 UNITS Dextrose 50 ml UD PRN IV 10/09/24 01:15 Aspirin 300 mg DAILY [place] 10/09/24 10:00 10/09/24 11:36 300 MG Laboratory Results Laboratory Tests 10/07/24 09:00 10/09/24 05:52 Urinalysis Test 10/02/24 03:01 Urine Color Colorless (Yellow) Urine Clarity Clear (Clear) Urine pH 5.0 (5.0-9.0) Urine Specific [place] 1.020 (1.001-1.035) Urine Protein Negative (Negative) Urine Ketones 1+ (Negative) H Urine Blood Trace /uL (Negative) H Urine Nitrite Negative (Negative) Urine Bilirubin Negative (Negative) Urine Urobilinogen Normal mg/dL (Negative) Urine Leukocyte Esterase Trace /uL (Negative) Urine RBC 1 /hpf (0 - 3) Urine Microscopic WBC 13 /HPF (0-3) H Urine Squamous Epithelial Cells None seen /hpf (<5) Urine Bacteria None seen /hpf (None Seen) Urine Glucose 4+ mg/dL (Normal) H Microbiology Microbiology Date/Time Source Procedure Growth Status 10/07/24 09:07 Blood Blood Culture - Preliminary Methicillin Resistant S.aureus Resulted 10/03/24 00:00 Toe Gram Stain - Final Complete 10/03/24 00:00 Wound Culture - Final Methicillin Resistant S.aureus Enterococcus faecalis Complete Labs and/or images reviewed: Labs reviewed by me, Image(s) reviewed by me Assessment/Plan Assessment/Plan patient is a 39-year-old male with past medical history of diabetes mellitus, MRSA of the urine, hyperlipidemia, and methamphetamine abuse presented to [facility] ED with complaint of fever. Patient reports he has been experiencing fever, associated with generalized weakness, abdominal pain, presents with Kan catheter in place due to recent prostate surgery. Patient was seen and evaluated in the ED, laboratory data shows WBC 6.1, hemoglobin 9.5, hematocrit 28.7, platelets 203, sodium 130, potassium 4.0, BUN 23, creatinine 1.12, glucose 382, calcium 8.5, albumin 3.1, blood pressure 110/70, heart rate 136 trending down to 96, temperature 103.2 F trending down to 97.6 F, O2 saturation 95% on room air. Abdomen/pelvis CT revealing evidence of left sacroiliitis with gas and fluid extending into left pelvic muscles likely representing abscess; rectal wall thickening correlate for symptoms of proctitis; Kan catheter decompressed urinary bladder with wall thickening; hypodense appearance of the mildly enlarged prostate, cystitis and prostatitis or possible. Patient was started on IV antibiotic regimen vancomycin, 10/03: Patient has very high fevers up to 103, CT showing left sacroiliitis with gas fluid in 2 left pelvic muscles possible abscess. We will consult surgery. There is also proctitis and bladder wall thickening. We will continue broad- spectrum IV antibiotics. ?Concern of IVDU ,. Patient is tremulous mildly we will continue watching for alcohol withdrawal. We will monitor. We will need UDS. Significant hyperglycemia, diabetes likely complicating and/or causing wound/healing. Patient had recent prostate surgery and possible good fentanyl to be related to that, surgery is recommended urology evaluation. Urology consult placed. 10/04: DC patient's culture came VAC MRSA, already on vancomycin. Continue IV antibiotics. Surgery in urology following. Just adjust pain meds prn per patient.. Increase sliding scale, better control glucose,. Diet order was incorrect, fixed to low carb. We will start Lantus 20 HS,. Continue present therapy 10/05: Patient appears altered today, had some visitors prior. Per RN patient has been normal for that. We will get stat CT, UDS and we will continue ongoing treatment and workup. Surgery and Urology both recommend continuing IV antibiotics, IR consult for possible drainage. Initial CT head negative, UDS negative. Patient continues to be confused had a fall. Repeating head CT again. Getting stat portable chest x-ray, repeat CBC CMP, TSH, ammonia, ABG stat, at sitter one-to-one, neurology consult for altered mental status 10/06: 2nd CT yesterday showed left MCA territory stroke. Patient's blood cultures continue to, with MRSA vanc sensitive. Continuing vanc. I am suspicious of endocarditis. We will get echocardiogram continue vanc. Not totally convinced of stroke causing confusion. Confusion/encephalopathy might be from sepsis, or other causes. We will hold off lumbar puncture right now and have follow up with Neurology to rule out meningitis/HSV encephalitis. Tomorrow we will get HIV/trapped antibody test. Start aspirin Plavix, statin, echo. 10/07: Echo is negative for vegetations, blood cultures were redrawn pending. Neurology agrees with LP. Neurology also agrees with TIM. Consult placed. Treponemal antibody/HIV pending. Yesterday we restarted patient's bipolar medication Abilify. Continuing vanc/ceftriaxone/metronidazole. 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 Using Haldol and Ativan prn to control agitation, 10/08: Patient continues to require Ativan due to behavioral issues due to sepsis encephalopathy on top of baseline behavioral bipolar disorder. Taking patient for LP today likely, cardiology is holding off TIM evaluation given patient is encephalopathic, patient's blood cultures 3rd time are both with early signs of Gram-positive cocci. Urology is getting MRI pelvis to evaluate for history of prostatic abscess. CT right great toe yesterday with chronic changes from osteomyelitis, this wound also showed MRSA. Pharmacy has some concern of vancomycin having low MAC. At this point it is unclear source of MRSA with recurrent MRSA, we will consult ID and continue to wait for improvement of patient's mental status to get TIM as concern for endocarditis emboli remains very possible given patient had left MCA stroke with clean corotids/vasculature. 10/09: Patient has bipolar, unable to make decisions, does not understand the severity of illness. Continuing behavioral control with the Haldol and Ativan. Holding off LP patient is agitated unable to follow up commands, same reason holding up TIM, some reason holding MRI. Vanc is at appropriate level but no ID consult available. Continues to have MRSA bacteremia, we will repeat culture.. Diagnosis : Acute toxic metabolic encephalopathy Sepsis, unspecified organism SBE, possible, rule out Recurrent MRSA bacteremia Psychiatric illness, bipolar likely CVA, left MCA territory, likely embolic Meningitis? Possible, HSV encephalitis possible?, unable to rule out Febrile episodes Hypoalbuminemia Diabetes with hyperglycemia Ketosis, possible early DKA Hyponatremia Abdominal abscess Methamphetamine abuse Plan: Vancomycin Ceftriaxone 2 g Pain control PRN Neurology consult for ALOC ID consult recurrent MRSA bacteremia Cardiology consult for TIM Metronidazole IV Stop cefepime NPO due to altered mental status Telemetry Full code Plan discussed with: Patient My Orders Orders - MARGAUX MCCORMACK MD Procedure Category Date Status Time Blood Culture POOJA 10/09/24 In Process 09:36 Aspirin Suppository PHA 10/09/24 In Process 10:00 *Tele Psych Consult CONS 10/09/24 Transmitted 09:56 Communication Order ORDERS 10/09/24 Transmitted 09:56 * Infectious Gayle- CONS 10/09/24 Transmitted Jose Solano 10:11 Date of Service: Oct 09, 2024 Billing Provider: MARGAUX MCCORMACK MD Common Visit Codes: [id number] INP/OBS CARE(HIGH) MARGAUX MCCORMACK MD Oct 09, 2024 13:09
--- NOTE | 2024-10-09 13:34 | DVHINCON2 ---
Date of Service if different f: Oct 09, 2024 Consultation ([facility]) Consulting Physician: ERIN BERRY MD Labs Laboratory Tests Test 10/02/24 03:01 10/02/24 21:24 10/03/24 04:25 10/05/24 02:47 Urine Color Colorless (Yellow) Urine Clarity Clear (Clear) Urine pH 5.0 (5.0-9.0) Urine Specific [place] 1.020 (1.001-1.035) Urine Protein Negative (Negative) Urine Ketones 1+ (Negative) Urine Blood Trace /uL (Negative) Urine Nitrite Negative (Negative) Urine Bilirubin Negative (Negative) Urine Urobilinogen Normal mg/dL (Negative) Urine Leukocyte Esterase Trace /uL (Negative) Urine RBC 1 /hpf (0 - 3) Urine Microscopic WBC 13 /HPF (0-3) Urine Squamous Epithelial Cells None seen /hpf (<5) Urine Bacteria None seen /hpf (None Seen) Urine Glucose 4+ mg/dL (Normal) Prothrombin Time 12.3 sec (9.3-11.8) Prothromb Time International Ratio 1.18 (0.9-1.15) Activated Partial Thromboplast Time 34.4 SEC (24.5-34.5) Lactic Acid Level 1.3 mmol/L (0.4-2.0) Hepatitis B Surface Antigen Negative (Negative) Hepatitis C Antibody Negative (Negative) Anisocytosis (manual) Slight Thyroid Stimulating Hormone (TSH) 1.36 uIU/mL (0.55-4.78) Test 10/05/24 11:48 10/05/24 15:02 10/05/24 18:15 10/05/24 18:40 Bedside Glucose 226 mg/dl (70-106) Urine Opiates Screen Neg (NEGATIVE) Urine Fentanyl Screen Neg (NEGATIVE) Urine Barbiturates Screen Neg (NEGATIVE) Urine Phencyclidine Screen Neg (NEGATIVE) Urine Amphetamines Screen Neg (NEGATIVE) Urine Benzodiazepines Screen Neg (NEGATIVE) Urine Cocaine Screen Neg (NEGATIVE) Urine Cannabinoids Screen Neg (NEGATIVE) Blood Gas Specimen Type Arterial Blood Gas Sample Site Right radial Blood Gas Patient Temperature 37.0 Arterial Blood Date Drawn [id number] Arterial Blood pH 7.532 (7.350-7.450) Arterial Blood Partial Pressure CO2 32.4 mmHg (35.0-48.0) Arterial Blood Partial Pressure O2 64.2 mmHg (83.0-108.0) Arterial Blood HCO3 26.6 mmol/L (21.0-28.0) Arterial Blood Oxygen Saturation 92.9 % (94.0-98.0) Arterial Blood Base Excess 4.0 mmol/L (-2.0-3.0) Arterial Blood Oxyhemoglobin 92.2 % (94.0-98.0) Arterial Blood Carboxyhemoglobin 0.6 % (0.5-1.5) Arterial Blood Methemoglobin 0.2 % (0.0-1.5) Simone Test Modified Blood Gas Total Hemoglobin 9.60 g/dL (13.5-17.5) Blood Gas Modality Room air FiO2 % 21.0 Differential Total Cells Counted 100.0 (100) Neutrophils % (Manual) 73 (37.0-80.0) Band Neutrophils % (Manual) 5 Lymphocytes % (Manual) 13 (10.0-50.0) Monocytes % (Manual) 8 (0-12) Eosinophils % (Manual) 0 (0-7) Basophils % (Manual) 0 (0.0-2.0) Metamyelocytes % (manual) 0 Myelocytes % (Manual) 0 Promyelocytes % (Manual) 0 Blast Cells % (Manual) 0 Reactive Lymphocytes 1 Platelet Estimate Decreased Ammonia < 10 umol/L (11-32) Test 10/07/24 09:00 10/07/24 13:01 10/08/24 14:16 10/09/24 05:52 Erythrocyte Sedimentation Rate 102 mm/hr (0-20) Sodium Level 144 mmol/L (136-145) Potassium Level 3.8 mmol/L (3.5-5.1) Chloride Level 107 mmol/L (98-107) Carbon Dioxide Level 26 mmol/L (20-31) Anion Gap 11 (5-15) Blood Urea Nitrogen 14 mg/dL (9-23) BUN/Creatinine Ratio 20.6 (10.0-20.0) Serum Glucose 213 mg/dL (74-106) Calcium Level 7.8 mg/dL (8.7-10.4) Total Bilirubin 0.2 mg/dL (0.2-1.0) Aspartate Amino Transf (AST/SGOT) 28 U/L (13-40) Alanine Aminotransferase (ALT/SGPT) 17 U/L (7-40) Alkaline Phosphatase 99 U/L (46-116) C-Reactive Protein High Sensitivity 19.31 mg/dL (<1.0) Total Protein 6.2 g/dL (5.7-8.2) Albumin 2.3 g/dL (3.2-4.8) Triglycerides Level 153 mg/dL (< 150) Cholesterol Level 87 mg/dL (< 200) LDL Cholesterol 39 mg/dL (< 100) HDL Cholesterol 9 mg/dL (40-59) Treponema pallidum Antibody Non-reactive (Negative) HIV (1&2) Antibody Negative (Negative) Vancomycin Level Trough 23.9 ug/mL (5-10) White Blood Count 5.4 10^3/uL (4.4-10.8) Red Blood Count 3.02 10^6/uL (4.5-5.90) Hemoglobin 8.3 g/dL (13.5-17.5) Hematocrit 25.8 % (41.0-53.0) Mean Corpuscular Volume 85.5 fL (80.0-100.0) Mean Corpuscular Hemoglobin 27.5 pg (28.0-32.0) Mean Corpuscular Hemoglobin Concent 32.2 g/dL (32.0-36.0) Red Cell Distribution Width 17.2 % (11.8-14.3) Platelet Count 214 10^3/uL (140-450) Mean Platelet Volume 8.3 fL (6.9-10.8) Neutrophils (%) (Auto) 79.1 % (37.0-80.0) Lymphocytes (%) (Auto) 12.6 % (10.0-50.0) Monocytes (%) (Auto) 6.7 % (0.0-12.0) Eosinophils (%) (Auto) 0.9 % (0.0-7.0) Basophils (%) (Auto) 0.7 % (0.0-2.0) Neutrophils # (Auto) 4.3 10 ^3/uL (1.6-8.6) Lymphocytes # (Auto) 0.7 10 ^3/uL (0.4-5.4) Monocytes # (Auto) 0.4 10 ^3/uL (0-1.3) Eosinophils # (Auto) 0 10 ^3/uL (0-0.8) Basophils # (Auto) 0 10 ^3/uL (0-0.2) Nucleated Red Blood Cells 0.1 % Creatinine 0.88 mg/dL (0.700-1.30) Glomerular Filtration Rate Calc 111 mL/min (>90) Microbiology Date/Time Source Procedure Growth Status 10/07/24 09:07 Blood Blood Culture - Preliminary Methicillin Resistant S.aureus Resulted 10/03/24 00:00 Toe Gram Stain - Final Complete 10/03/24 00:00 Wound Culture - Final Methicillin Resistant S.aureus Enterococcus faecalis Complete Vitals Vital Signs Date Time Temp Pulse Resp B/P (MAP) Pulse Ox O2 Delivery O2 Flow Rate FiO2 10/09/24 12:47 99.8 106 20 100/66 (77) 100 99.8 10/09/24 08:00 Room Air* 0 21 Current medications Current Medications Medications Dose Ordered Sig/Dion Route Start Time Stop Time Status Last Admin Dose Admin Acetaminophen/ Hydrocodone Bitart 1 tab Q4HP PRN PO 10/02/24 23:00 10/04/24 23:23 1 TAB Ondansetron HCl 4 mg Q4HP PRN IV 10/02/24 23:00 Docusate Sodium 100 mg BIDPRN PRN PO 10/02/24 23:00 Acetaminophen 650 mg Q6HP PRN PO 10/02/24 23:00 10/05/24 18:27 650 MG Nitroglycerin 0.4 mg Q5MINP PRN SL 10/02/24 23:45 Morphine Sulfate 2 mg Q30M PRN IV 10/02/24 23:45 Vancomycin HCl 0 ml @ 0 mls/hr UD IV 10/02/24 23:45 Mupirocin 1 applic BID EACHNOSTRI 10/04/24 22:00 10/09/24 21:59 10/09/24 10:06 1 APPLIC Ceftriaxone Sodium/Dextrose 50 ml @ 50 mls/hr DAILY@0900 IV 10/06/24 09:00 10/09/24 10:06 50 MLS/HR Haloperidol Lactate 10 mg Q6HP PRN IM 10/05/24 19:30 10/09/24 10:02 10 MG Lorazepam 2 mg Q4HPRN PRN IV 10/05/24 19:30 10/09/24 08:32 2 MG Dextrose 50 ml UD PRN IV 10/06/24 04:30 Enoxaparin Sodium 40 mg DAILY SC 10/07/24 10:00 10/09/24 10:07 40 MG Lorazepam 1 mg ONCE PRN IV 10/06/24 22:45 Metronidazole 100 ml @ 100 mls/hr Q8H IV 10/07/24 06:00 10/09/24 05:10 100 MLS/HR Sodium Chloride 1,000 ml @ 75 mls/hr [id number] IV 10/07/24 10:00 10/07/24 23:50 75 MLS/HR Vancomycin HCl 250 ml @ 250 mls/hr Q8H IV 10/08/24 18:00 10/09/24 11:36 250 MLS/HR Diagnostic Test (Pha) 1 strip IQ4HR 10/09/24 04:00 10/09/24 12:28 1 STRIP Insulin Human Regular IQ4HR SC 10/09/24 04:00 10/09/24 12:29 6 UNITS Dextrose 50 ml UD PRN IV 10/09/24 01:15 Aspirin 300 mg DAILY NM 10/09/24 10:00 10/09/24 11:36 300 MG Treatment plan discussed: With staff Medication adjusted: Yes Diagnosis: altered mental status, Bipolar history by report Plan : This is 39-year-old male with prior diagnoses of bipolar or schizophrenia per report, patient is unable to participate on evaluation at this time Recommend zyprexa ODT/ zydis 10mg sublingual BID for agitation. or continue haldol as ordered if patient is refusing Po meds. Re-evaluate as needed. History of Present Illness Reason for Consult : Patient is agitated, frequently combative. Per nurse, mother reported hx of bipolar disorder; and needs medication recommendations HPI : This is a 39-year-old male with prior psychiatric history, admitted here for sepsis. On evaluation, patient is in bed, sedated. He does wake up, looks at policy writer typist saying he would not answer questions and stopped responding. Per nurse, patient had a stroke while admitted here. He is agitated when awake requiring restraints and sedating medication for frequent agitation and trying to assault staff. Patient also has difficulty swallowing likely unable to take PO meds Past Psychiatric History : Possible bipolar disorder. unable to assess Past Medical History : per chart review Social History : He lives with mother. Also history of methamphetamine abuse STEPHY JEAN DNP Oct 09, 2024 13:33
--- NOTE | 2024-10-09 21:44 | DVHPN2 ---
Progress Note - Dictate Date Seen: Oct 09, 2024 Medical Necessity Reason Pt with a Central, PICC or Fol: No Subjective Mr. Velazquez is a 39 years old gentleman with a history of diabetes, GERD, bipolar disorder, schizophrenia, chronic diabetic ulcer, he was brought to the [facility] on 10/02/2024 with a chief company of fever, the patient is also noticed to have altered mental status, in the CT brain scan showed evidence suggestive of left MCA territory acute stroke. I have seen and examined the patient, talked to his nursedany, he is awake, eyes closed, but he open his eyes when I call his name, he mumble a few words, but does not answer my questions or follow my verbal commands Tele psychology input appreciated T-max today: 99.8 Blood culture, 10/02/2024: MRSA Blood culture, 10/03/2024: MRSA Blood culture, 10/04/2024: MRSA UDS, 10/03/2024: Ms. Amphetamine, 09/3124: Negative Urinalysis, 10/02/2024: WBC: 30, urine leukocyte esterase: Trace WBC/HB/PLT/MCV, 10/06/2024: 5/8.7/130/82.4 PTT/INR/eight six, 10/02/2024: 12.3/1.18/34.4 CMP, 10/05/2024: Unremarkable HGB A1c, 05/10/2023: >14 TG/HDL/LDL/HDL, 10/07/2024: 153/87/39/9 Echocardiogram, 10/06/2024: Technically good study. Off axis views. Limited views obtained. There appears to be biatrial enlargement and LV enlargement. Mild aortic root enlargement. Valves appear to be structurally normal. Left ventricular function is borderline at 45 to 50% anteroseptal hypokinesis.. Normal RV function. Mild TR. No pericardial effusion masses or vegetations. CT head, 10/05/2024: Acute left MCA territory infarct in left insula/temporal operculum/temporal lobe. No hemorrhage or mass effect Sedated, 10/09/2024: 1. Interval progression in evolution of left middle cerebral artery territory infarct involving the insula / temporal are operculum/ temporal lobe with associated loss of khoury-white matter differentiation and progressively diminished parenchymal attenuation. 2. No evidence of intracranial hemorrhage, mass effect, midline shift or herniation. 3. Chronic sequelae of microangiopathy and atrophic cortical volume loss. CT abdomen/pelvis, 10/06/2024: 1. Trace bilateral pleural effusions with adjacent atelectasis and patchy posterior bibasilar pulmonary infiltrate. 2. Hepatomegaly. 3. Excess retained colorectal stool and moderate proximal mechanical small-bowel obstruction. 4. Moderate gas and Kan catheter within the urinary bladder CTA head, neck, 10/05/2024: 1. No evidence of acute intracranial hemorrhage, mass effect or hydrocephalus. 2. No evidence of hemodynamically significant intracranial stenosis, proximal occlusion or aneurysm. 3. No evidence of hemodynamically significant cervical stenosis or dissection vital signs Vital Sign Date Time Temp Pulse Resp B/P (MAP) Pulse Ox O2 Delivery O2 Flow Rate FiO2 10/09/24 16:43 98.8 95 22 122/78 (93) 96 98.8 10/09/24 08:00 Room Air* 0 21 Total Intake and Output 10/08/24 10/08/24 10/09/24 15:00 23:00 07:00 Intake Total 300 ml 300 ml 2075 ml Output Total 1300 ml 1850 ml Balance 300 ml -1000 ml 225 ml medications Current Medications Medications Dose Ordered Sig/Dion Route Start Time Stop Time Status Last Admin Dose Admin Acetaminophen/ Hydrocodone Bitart 1 tab Q4HP PRN PO 10/02/24 23:00 10/04/24 23:23 1 TAB Ondansetron HCl 4 mg Q4HP PRN IV 10/02/24 23:00 Docusate Sodium 100 mg BIDPRN PRN PO 10/02/24 23:00 Acetaminophen 650 mg Q6HP PRN PO 10/02/24 23:00 10/05/24 18:27 650 MG Nitroglycerin 0.4 mg Q5MINP PRN SL 10/02/24 23:45 Morphine Sulfate 2 mg Q30M PRN IV 10/02/24 23:45 Vancomycin HCl 0 ml @ 0 mls/hr UD IV 10/02/24 23:45 Mupirocin 1 applic BID EACHNOSTRI 10/04/24 22:00 10/09/24 21:59 10/09/24 10:06 1 APPLIC Ceftriaxone Sodium/Dextrose 50 ml @ 50 mls/hr DAILY@0900 IV 10/06/24 09:00 10/09/24 10:06 50 MLS/HR Haloperidol Lactate 10 mg Q6HP PRN IM 10/05/24 19:30 10/09/24 10:02 10 MG Lorazepam 2 mg Q4HPRN PRN IV 10/05/24 19:30 10/09/24 16:02 2 MG Dextrose 50 ml UD PRN IV 10/06/24 04:30 Enoxaparin Sodium 40 mg DAILY SC 10/07/24 10:00 10/09/24 10:07 40 MG Lorazepam 1 mg ONCE PRN IV 10/06/24 22:45 Metronidazole 100 ml @ 100 mls/hr Q8H IV 10/07/24 06:00 10/09/24 20:55 100 MLS/HR Sodium Chloride 1,000 ml @ 75 mls/hr [id number] IV 10/07/24 10:00 10/07/24 23:50 75 MLS/HR Diagnostic Test (Pha) 1 strip IQ4HR 10/09/24 04:00 10/09/24 20:55 1 STRIP Insulin Human Regular IQ4HR SC 10/09/24 04:00 10/09/24 20:59 4 UNITS Dextrose 50 ml UD PRN IV 10/09/24 01:15 Aspirin 300 mg DAILY DC 10/09/24 10:00 10/09/24 11:36 300 MG objective General: the patient is well developed and nourished. No acute distress. MUSCULOSKELETAL EXAM: Chronic ulcer in the right big toe, a small skin lesion in the left big toe MENTAL STATUS: Subjective SPEECH, LANGUAGE, HIGHER CORTICAL FUNCTION: He does not vocalize CRANIAL NERVES: Pupils are equal, round and reactive. Conjugated eye movement. Facial sensation intact in all three divisions bilaterally. Mandibular strength intact. Facial muscles symmetrical and strength intact. SENSATION: Unable to examine MOTOR: Strong resistance to passive movement in all extremities, questionable weakness in the right upper extremity. unable to examine muscle tone. He moves the arms, can not tell if one side weaker than the other REFLEXES: Deep tendon reflexes feel symmetrical. No pathological reflexes. CEREBELLAR/COORDINATION: Deferred GAIT/STATION: deferred laboratory and microbiology Laboratory Tests 10/09/24 05:52 10/07/24 09:00 Test 10/07/24 09:00 Range/Units Serum Glucose 213 H 74-106 mg/dL Problem List Altered mental status, secondary to Acute stroke Metabolic encephalopathy Rule out intracranial infection Abnormal CT head Acute stroke Rule out encephalitis Pelvis abscess Rule out endocarditis Sepsis with MRSA Chronic diabetic wound History of substance abuse Assessment/Plan Monitoring Supportive treatment Telemetry Follow up blood tests LP with CSF profile (hold) EEG TIM Follow-up CT head MR head Aspirin 81 mg daily D/C Lipitor 20 mg daily (LDL: 39) IV antibiotics Haldol p.r.n. for agitation Infectious disease consultation Surgery consultation Cardiology consultation Neurology consultation Radiology consultation Need to quit substance abuse More recommendation per clinical course This medical document was created using an electronic medical record system with [employer] dictation system. Although this document has been carefully reviewed, there may still be some phonetic and typographical errors. These areas are purely typographical due to imperfections of the software programs, and do not reflect any compromise in the patient's medical care. Prognosis poor Dietary Evaluation Review Comments: 1) Add cardiac restriction to 60g CCHO diet 2) Initiate Glucerna qd. Encourage optimal PO intake 3) Follow-up with urology and surgery 4) Follow-up with social worker health services r/t methamphetamine abuse 5) Continue to monitor I&O, labs, and skin integrity Expected Outcomes/Goals: 1) appetite and labs to improve 2) wound to improve 3) f/u in 3-5 days Plan discussed with: Other CALEB PAYNE MD Oct 09, 2024 21:44
[2024-10-10] VITALS (45 sets, daily range): BP systolic 83–135; BP diastolic 45–81; PULSE 80–126; RESP 14–22; TEMP 98.8–102.6; O2SAT 91–100
--- NOTE | 2024-10-10 09:52 | DVHPN2 ---
Subjective Patient is seen at bedside today. Appears ill Reviewed: Care Plan Changes from previous H/P or p: No Changes General: Per HPI Eyes: No Pain, No Vision change, No Conjunctivae inflammation, No Eyelid inflammation, No Other, No Redness ENT: No Ear pain, No Ear discharge, No Nose pain, No Nose discharge, No Nose congestion, No Mouth pain, No Mouth swelling, No Throat pain, No Throat swelling, No Other Cardiovascular: No Chest Pain, No Palpitations, No Orthopnea, No Paroxysmal Noc. Dyspnea, No Edema, No Lt Headedness, No Other Respiratory: No Cough, No Dry, No Shortness of breath, No SOB with excertion, No Wheezing, No Hemoptysis, No Pleuritic Pain, No Sputum, No Other Gastrointestinal: No Nausea, No Vomiting; Abdominal Pain; No Diarrhea, No Constipation, No Melena, No Hematochezia, No Other Genitourinary: No Dysuria, No Frequency, No Incontinence, No Hematuria, No Retention; Other (Kan catheter in place) Musculoskeletal: No other, No neck pain, No shoulder pain, No arm pain, No back pain, No hand pain, No leg pain, No foot pain Skin: No Rash, No Lesions, No Jaundice, No Bruising, No Other Objective Vitals Vital Signs Date Time Temp Pulse Resp B/P (MAP) Pulse Ox O2 Delivery O2 Flow Rate FiO2 10/10/24 05:00 99.4 95 19 110/75 (87) 96 99.4 10/09/24 20:00 Room Air* 0 21 Intake/Output Intake and Output 10/10/24 07:00 Intake Total 2650 ml Output Total 1200 ml Balance 1450 ml Intake Oral 1300 ml IV Total 1350 ml Output Urine Total 1200 ml Exam GEN: A&O times 1 HEENT: NC/AT; MMM. CV: Tachycardia, regular rhythm LUNGS: CTAB, no w/r/c. ABD: Soft, NT/ND, NBS, no masses or organomegaly. EXT: skin Warm, well perfused. no rashes. No clubbing, cyanosis, or edema. R ight toe wrapped in gauze, chronic ulcer NEURO: Ambulating with no limitations. No focal deficits. Medications Current Medications Medications Dose Ordered Sig/Dion Route Start Time Stop Time Status Last Admin Dose Admin Acetaminophen/ Hydrocodone Bitart 1 tab Q4HP PRN PO 10/02/24 23:00 10/04/24 23:23 1 TAB Ondansetron HCl 4 mg Q4HP PRN IV 10/02/24 23:00 Docusate Sodium 100 mg BIDPRN PRN PO 10/02/24 23:00 Acetaminophen 650 mg Q6HP PRN PO 10/02/24 23:00 10/05/24 18:27 650 MG Nitroglycerin 0.4 mg Q5MINP PRN SL 10/02/24 23:45 Morphine Sulfate 2 mg Q30M PRN IV 10/02/24 23:45 Vancomycin HCl 0 ml @ 0 mls/hr UD IV 10/02/24 23:45 Ceftriaxone Sodium/Dextrose 50 ml @ 50 mls/hr DAILY@0900 IV 10/06/24 09:00 10/10/24 09:38 50 MLS/HR Haloperidol Lactate 10 mg Q6HP PRN IM 10/05/24 19:30 10/10/24 08:43 10 MG Lorazepam 2 mg Q4HPRN PRN IV 10/05/24 19:30 10/10/24 04:45 2 MG Enoxaparin Sodium 40 mg DAILY SC 10/07/24 10:00 10/09/24 10:07 40 MG Lorazepam 1 mg ONCE PRN IV 10/06/24 22:45 Metronidazole 100 ml @ 100 mls/hr Q8H IV 10/07/24 06:00 10/10/24 05:22 100 MLS/HR Sodium Chloride 1,000 ml @ 75 mls/hr [id number] IV 10/07/24 10:00 10/10/24 05:37 75 MLS/HR Diagnostic Test (Pha) 1 strip IQ4HR 10/09/24 04:00 10/10/24 08:44 1 STRIP Insulin Human Regular IQ4HR SC 10/09/24 04:00 10/10/24 09:38 3 UNITS Dextrose 50 ml UD PRN IV 10/09/24 01:15 Aspirin 300 mg DAILY VT 10/09/24 10:00 10/10/24 08:44 300 MG Vancomycin HCl 250 ml @ 200 mls/hr Q12H IV 10/10/24 11:00 Linezolid 300 ml @ 150 mls/hr Q12HR IV 10/10/24 10:00 UNV Laboratory Results Laboratory Tests 10/07/24 09:00 10/09/24 05:52 10/10/24 05:07 Urinalysis Test 10/02/24 03:01 Urine Color Colorless (Yellow) Urine Clarity Clear (Clear) Urine pH 5.0 (5.0-9.0) Urine Specific [place] 1.020 (1.001-1.035) Urine Protein Negative (Negative) Urine Ketones 1+ (Negative) H Urine Blood Trace /uL (Negative) H Urine Nitrite Negative (Negative) Urine Bilirubin Negative (Negative) Urine Urobilinogen Normal mg/dL (Negative) Urine Leukocyte Esterase Trace /uL (Negative) Urine RBC 1 /hpf (0 - 3) Urine Microscopic WBC 13 /HPF (0-3) H Urine Squamous Epithelial Cells None seen /hpf (<5) Urine Bacteria None seen /hpf (None Seen) Urine Glucose 4+ mg/dL (Normal) H Microbiology Microbiology Date/Time Source Procedure Growth Status 10/09/24 11:25 Blood Blood Culture - Preliminary Resulted 10/03/24 00:00 Toe Gram Stain - Final Complete 10/03/24 00:00 Wound Culture - Final Methicillin Resistant S.aureus Enterococcus faecalis Complete Labs and/or images reviewed: Labs reviewed by me, Image(s) reviewed by me Assessment/Plan Assessment/Plan patient is a 39-year-old male with past medical history of diabetes mellitus, MRSA of the urine, hyperlipidemia, and methamphetamine abuse presented to [facility] ED with complaint of fever. Patient reports he has been experiencing fever, associated with generalized weakness, abdominal pain, presents with Kan catheter in place due to recent prostate surgery. Patient was seen and evaluated in the ED, laboratory data shows WBC 6.1, hemoglobin 9.5, hematocrit 28.7, platelets 203, sodium 130, potassium 4.0, BUN 23, creatinine 1.12, glucose 382, calcium 8.5, albumin 3.1, blood pressure 110/70, heart rate 136 trending down to 96, temperature 103.2 F trending down to 97.6 F, O2 saturation 95% on room air. Abdomen/pelvis CT revealing evidence of left sacroiliitis with gas and fluid extending into left pelvic muscles likely representing abscess; rectal wall thickening correlate for symptoms of proctitis; Kan catheter decompressed urinary bladder with wall thickening; hypodense appearance of the mildly enlarged prostate, cystitis and prostatitis or possible. Patient was started on IV antibiotic regimen vancomycin, 10/03: Patient has very high fevers up to 103, CT showing left sacroiliitis with gas fluid in 2 left pelvic muscles possible abscess. We will consult surgery. There is also proctitis and bladder wall thickening. We will continue broad- spectrum IV antibiotics. ?Concern of IVDU ,. Patient is tremulous mildly we will continue watching for alcohol withdrawal. We will monitor. We will need UDS. Significant hyperglycemia, diabetes likely complicating and/or causing wound/healing. Patient had recent prostate surgery and possible good fentanyl to be related to that, surgery is recommended urology evaluation. Urology consult placed. 10/04: DC patient's culture came VAC MRSA, already on vancomycin. Continue IV antibiotics. Surgery in urology following. Just adjust pain meds prn per patient.. Increase sliding scale, better control glucose,. Diet order was incorrect, fixed to low carb. We will start Lantus 20 HS,. Continue present therapy 10/05: Patient appears altered today, had some visitors prior. Per RN patient has been normal for that. We will get stat CT, UDS and we will continue ongoing treatment and workup. Surgery and Urology both recommend continuing IV antibiotics, IR consult for possible drainage. Initial CT head negative, UDS negative. Patient continues to be confused had a fall. Repeating head CT again. Getting stat portable chest x-ray, repeat CBC CMP, TSH, ammonia, ABG stat, at sitter one-to-one, neurology consult for altered mental status 10/06: 2nd CT yesterday showed left MCA territory stroke. Patient's blood cultures continue to, with MRSA vanc sensitive. Continuing vanc. I am suspicious of endocarditis. We will get echocardiogram continue vanc. Not totally convinced of stroke causing confusion. Confusion/encephalopathy might be from sepsis, or other causes. We will hold off lumbar puncture right now and have follow up with Neurology to rule out meningitis/HSV encephalitis. Tomorrow we will get HIV/trapped antibody test. Start aspirin Plavix, statin, echo. 10/07: Echo is negative for vegetations, blood cultures were redrawn pending. Neurology agrees with LP. Neurology also agrees with ETHEL. Consult placed. Treponemal antibody/HIV pending. Yesterday we restarted patient's bipolar medication Abilify. Continuing vanc/ceftriaxone/metronidazole. 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 Using Haldol and Ativan prn to control agitation, 10/08: Patient continues to require Ativan due to behavioral issues due to sepsis encephalopathy on top of baseline behavioral bipolar disorder. Taking patient for LP today likely, cardiology is holding off ETHEL evaluation given patient is encephalopathic, patient's blood cultures 3rd time are both with early signs of Gram-positive cocci. Urology is getting MRI pelvis to evaluate for history of prostatic abscess. CT right great toe yesterday with chronic changes from osteomyelitis, this wound also showed MRSA. Pharmacy has some concern of vancomycin having low MAC. At this point it is unclear source of MRSA with recurrent MRSA, we will consult ID and continue to wait for improvement of patient's mental status to get ETHEL as concern for endocarditis emboli remains very possible given patient had left MCA stroke with clean corotids/vasculature. 10/09: Patient has bipolar, unable to make decisions, does not understand the severity of illness. Continuing behavioral control with the Haldol and Ativan. Holding off LP patient is agitated unable to follow up commands, same reason holding up ETHEL, some reason holding MRI. Vanc is at appropriate level but no ID consult available. Continues to have MRSA bacteremia, we will repeat culture.. 10/10: Patient is still remaining agitated, encephalopathic. Now having low- grade fevers. Start rectal Tylenol, psych has seen yesterday recommending ODT Zyprexa, we will do IM Haldol 5 mg q.6 scheduled, use Ativan 2 mg q.2h for breakthrough agitation. With continued positive blood culture despite therapeutic vanc levels, no ID consult, we will add 2nd MRSA coverage linezolid. Maintain sitter bedside. - later in PM, patient nonresponsive, abg with hyperventilation, cxr unconcerning (no septic nodules...), also having higher temps. despite no ativan/haldol, patient was nonresponsive, concern for airway protection, pt is intubated and R IJ cvc inserted. repeat CT with continued L mca stroke. started asa plavix. continue zyvox, vancomycin, ctx/flagyl. on sunday, will reassess ethel / LP, ID consult still pending. neuro following. family updated. pulm for vent managment. Diagnosis : Acute toxic metabolic encephalopathy Sepsis, unspecified organism SBE, possible, rule out Recurrent MRSA bacteremia Psychiatric illness, bipolar likely CVA, left MCA territory, likely embolic Meningitis? Possible, HSV encephalitis possible?, unable to rule out Febrile episodes Hypoalbuminemia Diabetes with hyperglycemia Ketosis, possible early DKA Hyponatremia Abdominal abscess Methamphetamine abuse Plan: Vancomycin Ceftriaxone 2 g Pain control PRN Neurology consult for ALOC ID consult recurrent MRSA bacteremia Cardiology consult for ETHEL Metronidazole IV Stop cefepime NPO due to altered mental status Telemetry Full code Plan discussed with: Patient My Orders Orders - MARGAUX MCCORMACK MD Procedure Category Date Status Time *Tele Psych Consult CONS 10/09/24 Transmitted 09:56 Communication Order ORDERS 10/09/24 Transmitted 09:56 * Infectious Gayle- CONS 10/09/24 Transmitted Jose Solano 10:11 Linezolid 600mg/300ml PHA 10/10/24 Logged (Zyvox) 10:00 Date of Service: Oct 10, 2024 Billing Provider: MARGAUX MCCORMACK MD Common Visit Codes: [id number] CARE 30-74 MIN MARGAUX MCCORMACK MD Oct 10, 2024 09:52
[2024-10-10 10:26] LABS: Hemoglobin 8.1 g/dL (13.5-17.5)
[2024-10-10 10:27] LABS: Hematocrit 25.1 % (41.0-53.0); Mean Corpuscular Hemoglobin 27.4 pg (28.0-32.0); Mean Corpuscular Volume 84.5 fL (80.0-100.0); Nucleated Red Blood Cells % 0.1 %
[2024-10-10 10:36] LABS: Potassium 3.6 mmol/L (3.5-5.1)
[2024-10-10 10:42] LABS: BUN/Creatinine Ratio 22.9 (10.0-20.0); Blood Urea Nitrogen 22 mg/dL (9-23)
[2024-10-10 10:46] LABS: Calcium 7.7 mg/dL (8.7-10.4); Chloride 116 mmol/L (98-107); Glucose 182 mg/dL (74-106); Sodium 151 mmol/L (136-145)
--- NOTE | 2024-10-10 10:46 | DVH ---
INDICATION: SOB TECHNIQUE: Frontal view of the chest. COMPARISON: XY CHEST XRAY 1 VIEW on DOS: 10/05/24, XY CHEST PORTABLE on DOS: 10/02/24, XY CHEST PORTABL E on DOS: 04/29/23, CHEST TWO VIEWS ROUTINE on DOS: 04/30/21, CXR2 on DOS: 04/30/21 FINDINGS: . The heart and mediastinal contours are grossly unremarkable. There is no evidence of pleural disea se. The lungs are clear. The bony structures of the chest are intact without fracture. IMPRESSION: 1. No evidence of acute disease.
[2024-10-10 11:08] LABS: Anion Gap 11 (5-15); Carbon Dioxide 24 mmol/L (20-31)
[2024-10-10] MEDS: VANCOMYCIN 1.25GM/250ML 250 ML IV SCH (11:09)
[2024-10-10] MEDS: HALOPERIDOL LACTATE 5 MG/ML INJ VIAL IM SCH (11:30)
[2024-10-10] MEDS: LINEZOLID 600MG/300ML 300 ML IV SCH (13:30)
[2024-10-10] MEDS: ACETAMINOPHEN 650 MG RECT SUPP PR PRN (15:18)
[2024-10-10 16:03] LABS: Base Excess 2.5 mmol/L (-2.0-3.0)
[2024-10-10] MEDS: KETOROLAC TROMETH 30 MG/ML 1ML VIAL IV PRN (16:08)
[2024-10-10] MEDS ORDERED: TPN PER PHARMACY 0 ML IV SCH ×2 (16:15→19:00)
[2024-10-10] MEDS: ETOMIDATE (2MG/ML) 20ML VIAL IV ONE (16:40)
[2024-10-10] MEDS: fentaNYL Drip 2500mCg/250mlNS 250 ML IV ONE (16:40)
[2024-10-10] MEDS: MIDAZOLAM DRIP 50 mg/50mL 50 ML IV ONE (16:40)
[2024-10-10] MEDS: ROCURONIUM 10MG/ML 10ML VIAL IV ONE (16:41)
[2024-10-10] MEDS: PROPOFOL 100 ML IV ONE (17:30)
--- NOTE | 2024-10-10 18:18 | DVHPN2 ---
Progress Note - Dictate Date Seen: Oct 10, 2024 Medical Necessity Reason Pt with a Central, PICC or Fol: No Subjective Mr. Velazquez is a 39 years old gentleman with a history of diabetes, GERD, bipolar disorder, schizophrenia, chronic diabetic ulcer, he was brought to the [facility] on 10/02/2024 with a chief company of fever, the patient is also noticed to have altered mental status, in the CT brain scan showed evidence suggestive of left MCA territory acute stroke. Because of fever, worsening mental status, that is was intubated and transferred to ICU on 10/10/24 I have seen and examined the patient, talked to his nurse, chart reviewed, apparently the patient has altered mental status today (RN 10/10/2024 0730: P atient has no facial grimace for pain), later he spiked temperature and was intubated and transferred to ICU He is responsive to strong painful stimuli, he has gag reflexes T-max today: 102.8 Blood culture, 10/02/2024: MRSA Blood culture, 10/03/2024: MRSA Blood culture, 10/04/2024: MRSA UDS, 10/03/2024: Ms. Amphetamine, 09/3124: Negative Urinalysis, 10/02/2024: WBC: 30, urine leukocyte esterase: Trace WBC/HB/PLT/MCV, 10/06/2024: 5/8.7/130/82.4, 10/10/2024: 6.5/8.1/211/84.5, PTT/INR/eight six, 10/02/2024: 12.3/1.18/34.4 Na, 10/07/2024: 144 10/10/2024: 151 CMP, 10/05/2024: Unremarkable HGB A1c, 05/10/2023: >14 TG/HDL/LDL/HDL, 10/07/2024: 153/87/39/9 Echocardiogram, 10/06/2024: Technically good study. Off axis views. Limited views obtained. There appears to be biatrial enlargement and LV enlargement. Mild aortic root enlargement. Valves appear to be structurally normal. Left ventricular function is borderline at 45 to 50% anteroseptal hypokinesis.. Normal RV function. Mild TR. No pericardial effusion masses or vegetations. CT head, 10/05/2024: Acute left MCA territory infarct in left insula/temporal operculum/temporal lobe. No hemorrhage or mass effect Sedated, 10/09/2024: 1. Interval progression in evolution of left middle cerebral artery territory infarct involving the insula / temporal are operculum/ temporal lobe with associated loss of khoury-white matter differentiation and progressively diminished parenchymal attenuation. 2. No evidence of intracranial hemorrhage, mass effect, midline shift or herniation. 3. Chronic sequelae of microangiopathy and atrophic cortical volume loss. CT abdomen/pelvis, 10/06/2024: 1. Trace bilateral pleural effusions with adjacent atelectasis and patchy posterior bibasilar pulmonary infiltrate. 2. Hepatomegaly. 3. Excess retained colorectal stool and moderate proximal mechanical small-bowel obstruction. 4. Moderate gas and Kan catheter within the urinary bladder CTA head, neck, 10/05/2024: 1. No evidence of acute intracranial hemorrhage, mass effect or hydrocephalus. 2. No evidence of hemodynamically significant intracranial stenosis, proximal occlusion or aneurysm. 3. No evidence of hemodynamically significant cervical stenosis or dissection vital signs Vital Sign Date Time Temp Pulse Resp B/P (MAP) Pulse Ox O2 Delivery O2 Flow Rate FiO2 10/10/24 17:05 80 20 100 30 10/10/24 16:43 102.6 102.6 10/10/24 08:00 Room Air* 0 Total Intake and Output 10/09/24 10/09/24 10/10/24 15:00 23:00 07:00 Intake Total 790 ml 710 ml 1150 ml Output Total 625 ml 175 ml 400 ml Balance 165 ml 535 ml 750 ml medications Current Medications Medications Dose Ordered Sig/Dion Route Start Time Stop Time Status Last Admin Dose Admin Acetaminophen/ Hydrocodone Bitart 1 tab Q4HP PRN PO 10/02/24 23:00 10/04/24 23:23 1 TAB Ondansetron HCl 4 mg Q4HP PRN IV 10/02/24 23:00 Docusate Sodium 100 mg BIDPRN PRN PO 10/02/24 23:00 Nitroglycerin 0.4 mg Q5MINP PRN SL 10/02/24 23:45 Morphine Sulfate 2 mg Q30M PRN IV 10/02/24 23:45 Vancomycin HCl 0 ml @ 0 mls/hr UD IV 10/02/24 23:45 Ceftriaxone Sodium/Dextrose 50 ml @ 50 mls/hr DAILY@0900 IV 10/06/24 09:00 10/10/24 09:38 50 MLS/HR Lorazepam 2 mg Q4HPRN PRN IV 10/05/24 19:30 10/10/24 11:48 2 MG Enoxaparin Sodium 40 mg DAILY SC 10/07/24 10:00 10/10/24 11:08 40 MG Lorazepam 1 mg ONCE PRN IV 10/06/24 22:45 Metronidazole 100 ml @ 100 mls/hr Q8H IV 10/07/24 06:00 10/10/24 05:22 100 MLS/HR Sodium Chloride 1,000 ml @ 75 mls/hr [id number] IV 10/07/24 10:00 10/10/24 05:37 75 MLS/HR Aspirin 300 mg DAILY OH 10/09/24 10:00 10/10/24 08:44 300 MG Vancomycin HCl 250 ml @ 200 mls/hr Q12H IV 10/10/24 11:00 10/10/24 11:09 200 MLS/HR Linezolid 300 ml @ 150 mls/hr Q12HR IV 10/10/24 10:00 10/10/24 13:30 150 MLS/HR Haloperidol Lactate 5 mg Q6HR IM 10/10/24 12:00 Acetaminophen 650 mg Q6HP PRN OH 10/10/24 10:00 10/10/24 15:18 650 MG Ketorolac Tromethamine 15 mg Q6HPRN PRN IV 10/10/24 15:45 10/15/24 15:44 10/10/24 16:08 15 MG Amino Acids 0 ml @ 0 mls/hr PER PHARMACY IV 10/10/24 16:15 Midazolam HCl 50 ml @ 1 mls/hr Q24H IV 10/10/24 17:15 Fentanyl Citrate 250 ml @ 2.5 mls/hr Q24H IV 10/10/24 17:15 Amino Acids/ Electrolytes/ Dextrose 1,000 ml @ 41 mls/hr DAILY@2200 IV 10/10/24 22:00 10/11/24 21:59 Propofol 100 ml @ 2.496 mls/ hr Q24H IV 10/10/24 17:15 Norepinephrine Bitartrate 250 ml @ 3.75 mls/hr Q24H IV 10/10/24 17:45 Diagnostic Test (Pha) 1 strip Q6HR 10/11/24 00:00 Insulin Human Regular FOLLOW SLIDING SCALE Q6HR SC 10/11/24 00:00 Dextrose 50 ml UD IV 10/10/24 22:00 objective General: the patient is well developed and nourished. No acute distress. Intubated MUSCULOSKELETAL EXAM: Chronic ulcer in the right big toe, a small skin lesion in the left big toe MENTAL STATUS: Subjective SPEECH, LANGUAGE, HIGHER CORTICAL FUNCTION: Subjective CRANIAL NERVES: Pupils are equal, round and reactive. There is doll's eye, corneal reflexes. No sign of facial weakness. He has weak gag reflexes SENSATION: Responsive to stroke painful stimuli MOTOR: Muscle tone feels normal, no spontaneous extremity movement REFLEXES: Deep tendon reflexes feel symmetrical. No pathological reflexes. CEREBELLAR/COORDINATION: Deferred GAIT/STATION: deferred laboratory and microbiology Laboratory Tests 10/10/24 05:07 Test 10/10/24 05:07 Range/Units Serum Glucose 182 H 74-106 mg/dL Problem List Altered mental status, secondary to Acute stroke Metabolic encephalopathy Rule out intracranial infection Acute respiratory failure Abnormal CT head Acute stroke Rule out encephalitis Pelvis abscess Rule out endocarditis Sepsis with MRSA Chronic diabetic wound History of substance abuse Assessment/Plan Monitoring Supportive treatment ICU care Follow up blood tests LP with CSF profile (hold) EEG TIM Follow-up CT head MR head when he is cooperative Stabilize vitals Respiratory support/vent management Aspirin 81 mg daily/has been 300 mg suppository D/C Lipitor 20 mg daily (LDL: 39) IV antibiotics Haldol p.r.n. for agitation Infectious disease consultation Need to quit substance abuse More recommendation per clinical course This medical document was created using an electronic medical record system with [employer] dictation system. Although this document has been carefully reviewed, there may still be some phonetic and typographical errors. These areas are purely typographical due to imperfections of the software programs, and do not reflect any compromise in the patient's medical care. Prognosis Guarded Dietary Evaluation Review Comments: 1) Add cardiac restriction to 60g CCHO diet 2) Initiate Glucerna qd. Encourage optimal PO intake 3) Follow-up with urology and surgery 4) Follow-up with social economist r/t methamphetamine abuse 5) Continue to monitor I&O, labs, and skin integrity Expected Outcomes/Goals: 1) appetite and labs to improve 2) wound to improve 3) f/u in 3-5 days Plan discussed with: Other Critical Care Time(min): 40 CALEB PAYNE MD Oct 10, 2024 18:18
--- NOTE | 2024-10-10 18:25 | DVHNC2 ---
Central Line Recorder of insertion practice: Fire Fighting Equipment Specialist Occupation of furnace charger: Other (Resident physician) Indication: Suspected infection, Other (Septic shock) Room prepared for procedure: Yes Fire Fighting Equipment Specialist performed hand hygien: Yes Maximal sterile barrier precau: Mask/Eye shield, Sterile gown, Cap, Sterlie gloves, Large sterlie drape Skin Preparation: Chlorhexidine gluconate, Providine iodine Skin preparation completely dr: Yes Insertion site: Right, Internal jugular Central line catheter type: [id number] dialysis Number of lumens: 3 Central line exchanged over a: No Antiseptic ointment applied to: Yes Post Assessment: Chest X-Ray Informed consent obtained: Yes Date of Service: Oct 10, 2024 Billing Provider: MARGAUX MCCORMACK MD Common Visit Codes: PROCEDURE ONLY Procedure Codes: [id number] NON-TUNNEL CV CATH CHRIS ASTORGA RESIDENT Oct 10, 2024 18:25 MARGAUX MCCORMACK MD Oct 13, 2024 02:30
--- NOTE | 2024-10-10 18:27 | DVHNC2 ---
Intubation Indication: Altered Mental Status, Airway Protection Prep: Preoxygenation Pretreated with: Sedation Medicated with: Other (Rocuronium and etomidate) Intubation Approach: Orotracheal Informed consent obtained: Yes Date of Service: Oct 10, 2024 Billing Provider: MARGAUX MCCORMACK MD Common Visit Codes: PROCEDURE ONLY Procedure Codes: [id number] CHRIS ASTORGA RESIDENT Oct 10, 2024 18:27 MARGAUX MCCORMACK MD Oct 13, 2024 02:31
--- NOTE | 2024-10-10 18:43 | DVH ---
CHEST RADIOGRAPH Indication: S/P INTUBATION/ CENTRAL LINE PLACEMENT Technique: Single frontal view of the chest was obtained Comparison: XY CHEST PORTABLE on DOS: 10/10/24, XY CHEST XRAY 1 VIEW on DOS: 10/05/24, XY CHEST PORTABLE on DOS: 10/02/24, XY CHEST PORTABLE on DOS: 04/29/23, CHEST XRAY 1 VIEW on DOS: 04/30/18 FINDINGS: Lines and Tubes: right ij line. endotracheal tube tip 3.2cm above the gallo. Enteric tube is noted l ikely in appropriate position. Lungs: No focal consolidation. Pleura: No effusion. No pneumothorax. Cardiomediastinal contours: Unremarkable Bones: No acute osseous abnormality. IMPRESSION: 1. Lines and tubes in appropriate position. 2. No focal consolidaitons.
[2024-10-10 18:57] LABS: Base Excess 0.7 mmol/L (-2.0-3.0)
[2024-10-10] MEDS: PROPOFOL 100 ML IV SCH (19:00)
[2024-10-10] MEDS: MIDAZOLAM DRIP 50 mg/50mL 50 ML IV SCH (19:50)
[2024-10-10] MEDS: NOREPINEPHRINE 8 MG/250ML KIT 250 ML IV SCH (20:00)
[2024-10-10] MEDS: fentaNYL Drip 2500mCg/250mlNS 250 ML IV SCH (20:00)
--- NOTE | 2024-10-10 20:39 | DVH ---
CLINICAL HISTORY: RULE OUT STROKE TECHNIQUE: Helical imaging carried out from skull base to vertex without intravenous contrast. This e xam was performed according to our departmental dose optimization program. Up-to-date CT equipment an d radiation dose reduction techniques are utilized as appropriate. CTDIVol: 66.96 mGy DLP: 1185.34 mGy-cm WID: COMPARISON: CT HEAD WITHOUT CONTRAST on DOS: 10/09/24, CT ANGIO HEAD/NECK on DOS: 10/06/24, CT HEAD WITHO UT CONTRAST on DOS: 10/05/24 FINDINGS: Evolving moderate-sized left MCA territory infarct involving the left parietal lobe and left temporal lobe. Tiny chronic appearing infarct in the left caudate body There is mild cerebral volume loss with concordant prominence of the subarachnoid spaces and ventricl es. There is no midline shift or mass effect. The basal cisterns are patent. There is no evidence o f acute intracranial hemorrhage or extra-axial fluid collection. The mastoid air cells and well-aerat ed. There is mild paranasal sinus mucosal thickening There is a nasogastric tube coursing through th e right nasal cavity. There is poor dentition with multiple dental caries and periapical lucencies o f maxillary teeth IMPRESSION: 1. Evolving acute/ recent moderate-sized left MCA territory infarct involving the left parietal and t emporal lobes. 2. No acute intracranial hemorrhage. 3. Mild cerebral volume loss. 4. Poor dentition with multiple dental caries and periodontal disease of the maxillary teeth.
[2024-10-10] MEDS ORDERED: DEXTROSE (50%) 50ML SYRG IV SCH (22:00)
[2024-10-10] MEDS ORDERED: AMINO ACID INFUSION IN D10W 1,000 ML IV SCH (22:00)
[2024-10-10] MEDS: CLOPIDOGREL BISULFATE 75 MG TAB PO ONE (22:40)
[2024-10-11] VITALS (107 sets, daily range): BP systolic 87–129; BP diastolic 54–85; PULSE 83–98; RESP 14–22; TEMP 97.2–99; O2SAT 96–100
[2024-10-11] MEDS: InsuLIN REG 1unit/0.01ml Soln (100units/ml) SC SCH (00:51)
[2024-10-11] MEDS: ETOMIDATE (2MG/ML) 20ML VIAL IV ONE (00:52)
[2024-10-11] MEDS: ROCURONIUM 10MG/ML 10ML VIAL IV ONE (00:53)
[2024-10-11] MEDS: ACCU-CHEK COMFORT CURVE STRIP VI SCH (00:53)
[2024-10-11 04:02] LABS: Hemoglobin 7.5 g/dL (13.5-17.5); Nucleated Red Blood Cells % 0.0 %
[2024-10-11 04:04] LABS: Hematocrit 23.2 % (41.0-53.0); Mean Corpuscular Hemoglobin 27.8 pg (28.0-32.0); Mean Corpuscular Volume 85.9 fL (80.0-100.0)
[2024-10-11 04:51] LABS: Alanine Aminotransferase 11 U/L (7-40); Alkaline Phosphatase 84 U/L (46-116); Anion Gap 9 (5-15); BUN/Creatinine Ratio 16.5 (10.0-20.0); Carbon Dioxide 25 mmol/L (20-31); Magnesium 1.8 mg/dL (1.6-2.6); Potassium 3.7 mmol/L (3.5-5.1); Total Protein 6.0 g/dL (5.7-8.2)
[2024-10-11 05:05] LABS: Albumin 2.2 g/dL (3.2-4.8); Bilirubin, Total < 0.2 mg/dL (0.2-1.0); Blood Urea Nitrogen 32 mg/dL (9-23); Calcium 7.3 mg/dL (8.7-10.4); Chloride 114 mmol/L (98-107); Glucose 333 mg/dL (74-106); Sodium 148 mmol/L (136-145)
--- NOTE | 2024-10-11 05:49 | DVH ---
CHEST RADIOGRAPH Indication: Intubated Technique: Single frontal view of the chest was obtained COMPARISON: XY CHEST PORTABLE on DOS: 10/10/24, XY CHEST PORTABLE on DOS: 10/10/24, XY CHEST XRAY 1 VIEW on DOS: 10/05/24, XY CHEST PORTABLE on DOS: 10/02/24, XY CHEST PORTABLE on DOS: 04/29/23 FINDINGS: Lines and Tubes: Lines and tubes unchanged. Lungs: Clear Pleura: No effusion. No pneumothorax. Cardiomediastinal contours: Unremarkable Bones: Unremarkable IMPRESSION: 1. Lines and tubes unchanged. 2. No acute cardiopulmonary disease.
[2024-10-11] MEDS: CLOPIDOGREL BISULFATE 75 MG TAB PO SCH (09:38)
--- NOTE | 2024-10-11 12:37 | DVHPN2 ---
Progress Note - Dictate Date Seen: Oct 11, 2024 Medical Necessity Reason Pt with a Central, PICC or Fol: No vital signs Vital Sign Date Time Temp Pulse Resp B/P (MAP) Pulse Ox O2 Delivery O2 Flow Rate FiO2 10/11/24 11:29 97 20 96/67 (77) 97 30 10/11/24 08:00 Mechanical Ventilator+ 10/11/24 08:00 0 10/11/24 07:15 98.1 208.6 Total Intake and Output 10/10/24 10/10/24 10/11/24 15:00 23:00 07:00 Intake Total 300 ml 1011.25 ml 1370.25 ml Output Total 600 ml Balance 300 ml 411.25 ml 1370.25 ml medications Current Medications Medications Dose Ordered Sig/Dion Route Start Time Stop Time Status Last Admin Dose Admin Acetaminophen/ Hydrocodone Bitart 1 tab Q4HP PRN PO 10/02/24 23:00 10/04/24 23:23 1 TAB Ondansetron HCl 4 mg Q4HP PRN IV 10/02/24 23:00 Docusate Sodium 100 mg BIDPRN PRN PO 10/02/24 23:00 Nitroglycerin 0.4 mg Q5MINP PRN SL 10/02/24 23:45 Morphine Sulfate 2 mg Q30M PRN IV 10/02/24 23:45 Vancomycin HCl 0 ml @ 0 mls/hr UD IV 10/02/24 23:45 Ceftriaxone Sodium/Dextrose 50 ml @ 50 mls/hr DAILY@0900 IV 10/06/24 09:00 10/11/24 08:25 50 MLS/HR Lorazepam 2 mg Q4HPRN PRN IV 10/05/24 19:30 10/10/24 11:48 2 MG Enoxaparin Sodium 40 mg DAILY SC 10/07/24 10:00 10/11/24 09:38 40 MG Lorazepam 1 mg ONCE PRN IV 10/06/24 22:45 Metronidazole 100 ml @ 100 mls/hr Q8H IV 10/07/24 06:00 10/11/24 06:48 100 MLS/HR Sodium Chloride 1,000 ml @ 75 mls/hr [id number] IV 10/07/24 10:00 10/11/24 08:22 75 MLS/HR Vancomycin HCl 250 ml @ 200 mls/hr Q12H IV 10/10/24 11:00 10/10/24 22:35 200 MLS/HR Linezolid 300 ml @ 150 mls/hr Q12HR IV 10/10/24 10:00 10/11/24 09:38 150 MLS/HR Haloperidol Lactate 5 mg Q6HR IM 10/10/24 12:00 Acetaminophen 650 mg Q6HP PRN WI 10/10/24 10:00 10/10/24 15:18 650 MG Ketorolac Tromethamine 15 mg Q6HPRN PRN IV 10/10/24 15:45 10/15/24 15:44 10/10/24 16:08 15 MG Midazolam HCl 50 ml @ 1 mls/hr Q24H IV 10/10/24 17:15 10/11/24 06:48 5 MLS/HR Fentanyl Citrate 250 ml @ 2.5 mls/hr Q24H IV 10/10/24 17:15 10/10/24 20:00 10 MLS/HR Propofol 100 ml @ 2.496 mls/ hr Q24H IV 10/10/24 17:15 Norepinephrine Bitartrate 250 ml @ 3.75 mls/hr Q24H IV 10/10/24 17:45 10/11/24 08:18 11.25 MLS/HR Diagnostic Test (Pha) 1 strip Q6HR 10/11/24 00:00 10/11/24 06:00 1 STRIP Insulin Human Regular FOLLOW SLIDING SCALE Q6HR SC 10/11/24 00:00 10/11/24 06:00 12 UNITS Dextrose 50 ml UD IV 10/10/24 22:00 Amino Acids 0 ml @ 0 mls/hr PER PHARMACY IV 10/10/24 19:00 UNV Aspirin 81 mg DAILY PO 10/11/24 10:00 10/11/24 09:38 81 MG Clopidogrel Bisulfate 75 mg DAILY PO 10/11/24 10:00 10/11/24 09:38 75 MG Enteral Nutritional Formula 1,000 ml 40ML/HR GT 10/10/24 21:15 laboratory and microbiology Laboratory Tests 10/11/24 03:25 Test 10/11/24 03:25 Range/Units Serum Glucose 333 #H 74-106 mg/dL Assessment/Plan Covering for Dr. Sanders Counterperson rounds Impression Acute hypoxemic respiratory failure Persistent MRSA bacteremia Altered mental status Septic shock Patient seen and examined in ICU Events On mechanical ventilation S/p intubation PEEP 5, FiO2 35% Labs and imaging reviewed BUN/Creatinine trending up ABG reviewed Management Vent support Titrate to maintain sats 90% or above Sedation for vent synchrony Continue antibiotics F/u cultures and ID Bronchodilators Monitor renal function Monitor electrolytes Supplement as needed Pressors as needed for hemodynamic support To maintain a mean arterial pressure of 65 mmHg Obtain TIM to rule out endocarditis DVT prophylaxis Critical care time 35 minutes Dietary Evaluation Review Comments: 1) Add cardiac restriction to 60g CCHO diet 2) Initiate Glucerna qd. Encourage optimal PO intake 3) Follow-up with urology and surgery 4) Follow-up with aids social worker r/t methamphetamine abuse 5) Continue to monitor I&O, labs, and skin integrity Expected Outcomes/Goals: 1) appetite and labs to improve 2) wound to improve 3) f/u in 3-5 days Plan discussed with: Other (Rn) HEIDI DOMINGUEZ MD Oct 11, 2024 12:37
--- NOTE | 2024-10-11 19:42 | DVHPN2 ---
Progress Note - Dictate Date Seen: Oct 11, 2024 Medical Necessity Reason Pt with a Central, PICC or Fol: No Subjective Mr. Velazquez is a 39 years old gentleman with a history of diabetes, GERD, bipolar disorder, schizophrenia, chronic diabetic ulcer, he was brought to the [facility] on 10/02/2024 with a chief company of fever, the patient is also noticed to have altered mental status, in the CT brain scan showed evidence suggestive of left MCA territory acute stroke. Because of fever, worsening mental status, that is was intubated and transferred to ICU on 10/10/24 I have seen and examined the patient, talked to his nurse, intubated, sedated, responsive to stroke painful stimuli, eyes rolling back but pupils equal round and reactive T-max today: 99 Blood culture, 10/02/2024: MRSA Blood culture, 10/03/2024: MRSA Blood culture, 10/04/2024: MRSA UDS, 10/03/2024: Ms. Amphetamine, 09/3124: Negative Urinalysis, 10/02/2024: WBC: 30, urine leukocyte esterase: Trace WBC/HB/PLT/MCV, 10/06/2024: 5/8.7/130/82.4, 10/10/2024: 6.5/8.1/211/84.5, , 10/11/2024: 6.1/7.5/176/85.9 PTT/INR/eight six, 10/02/2024: 12.3/1.18/34.4 Na, 10/07/2024: 144 10/10/2024: 151, 10/11/2024: 148 CMP, 10/05/2024: Unremarkable BUN/CR, 10/10/2024: 22/0.96, 10/11/2024: 32/1.94 GFR, 10/10/2024: 102, 10/11/2024: 44 Liver function tests, 10/11/2024: Unremarkable HGB A1c, 05/10/2023: >14 TG/HDL/LDL/HDL, 10/07/2024: 153/87/39/9 Echocardiogram, 10/06/2024: Technically good study. Off axis views. Limited views obtained. There appears to be biatrial enlargement and LV enlargement. Mild aortic root enlargement. Valves appear to be structurally normal. Left ventricular function is borderline at 45 to 50% anteroseptal hypokinesis.. Normal RV function. Mild TR. No pericardial effusion masses or vegetations. CT head, 10/05/2024: Acute left MCA territory infarct in left insula/temporal operculum/temporal lobe. No hemorrhage or mass effect Sedated, 10/09/2024: 1. Interval progression in evolution of left middle cerebral artery territory infarct involving the insula / temporal are operculum/ temporal lobe with associated loss of khoury-white matter differentiation and progressively diminished parenchymal attenuation. 2. No evidence of intracranial hemorrhage, mass effect, midline shift or herniation. 3. Chronic sequelae of microangiopathy and atrophic cortical volume loss. CT abdomen/pelvis, 10/06/2024: 1. Trace bilateral pleural effusions with adjacent atelectasis and patchy posterior bibasilar pulmonary infiltrate. 2. Hepatomegaly. 3. Excess retained colorectal stool and moderate proximal mechanical small-bowel obstruction. 4. Moderate gas and Kan catheter within the urinary bladder CTA head, neck, 10/05/2024: 1. No evidence of acute intracranial hemorrhage, mass effect or hydrocephalus. 2. No evidence of hemodynamically significant intracranial stenosis, proximal occlusion or aneurysm. 3. No evidence of hemodynamically significant cervical stenosis or dissection vital signs Vital Sign Date Time Temp Pulse Resp B/P (MAP) Pulse Ox O2 Delivery O2 Flow Rate FiO2 10/11/24 18:45 99.0 86 20 104/64 (77) 98 210.2 10/11/24 18:05 30 10/11/24 18:00 Mechanical Ventilator+ 10/11/24 08:00 0 Total Intake and Output 10/10/24 10/10/24 10/11/24 15:00 23:00 07:00 Intake Total 300 ml 1011.25 ml 1370.25 ml Output Total 600 ml Balance 300 ml 411.25 ml 1370.25 ml medications Current Medications Medications Dose Ordered Sig/Dion Route Start Time Stop Time Status Last Admin Dose Admin Acetaminophen/ Hydrocodone Bitart 1 tab Q4HP PRN PO 10/02/24 23:00 10/04/24 23:23 1 TAB Ondansetron HCl 4 mg Q4HP PRN IV 10/02/24 23:00 Docusate Sodium 100 mg BIDPRN PRN PO 10/02/24 23:00 Nitroglycerin 0.4 mg Q5MINP PRN SL 10/02/24 23:45 Morphine Sulfate 2 mg Q30M PRN IV 10/02/24 23:45 Vancomycin HCl 0 ml @ 0 mls/hr UD IV 10/02/24 23:45 Ceftriaxone Sodium/Dextrose 50 ml @ 50 mls/hr DAILY@0900 IV 10/06/24 09:00 10/11/24 08:25 50 MLS/HR Lorazepam 2 mg Q4HPRN PRN IV 10/05/24 19:30 10/10/24 11:48 2 MG Enoxaparin Sodium 40 mg DAILY SC 10/07/24 10:00 10/11/24 09:38 40 MG Lorazepam 1 mg ONCE PRN IV 10/06/24 22:45 Metronidazole 100 ml @ 100 mls/hr Q8H IV 10/07/24 06:00 10/11/24 15:00 100 MLS/HR Sodium Chloride 1,000 ml @ 75 mls/hr [id number] IV 10/07/24 10:00 10/11/24 08:22 75 MLS/HR Linezolid 300 ml @ 150 mls/hr Q12HR IV 10/10/24 10:00 10/11/24 09:38 150 MLS/HR Haloperidol Lactate 5 mg Q6HR IM 10/10/24 12:00 Acetaminophen 650 mg Q6HP PRN OK 10/10/24 10:00 10/10/24 15:18 650 MG Ketorolac Tromethamine 15 mg Q6HPRN PRN IV 10/10/24 15:45 10/15/24 15:44 10/10/24 16:08 15 MG Midazolam HCl 50 ml @ 1 mls/hr Q24H IV 10/10/24 17:15 10/11/24 15:00 5 MLS/HR Fentanyl Citrate 250 ml @ 2.5 mls/hr Q24H IV 10/10/24 17:15 10/11/24 15:08 12.5 MLS/HR Propofol 100 ml @ 2.496 mls/ hr Q24H IV 10/10/24 17:15 Norepinephrine Bitartrate 250 ml @ 3.75 mls/hr Q24H IV 10/10/24 17:45 10/11/24 08:18 11.25 MLS/HR Diagnostic Test (Pha) 1 strip Q6HR 10/11/24 00:00 10/11/24 17:58 1 STRIP Insulin Human Regular FOLLOW SLIDING SCALE Q6HR SC 10/11/24 00:00 10/11/24 17:59 4 UNITS Dextrose 50 ml UD IV 10/10/24 22:00 Amino Acids 0 ml @ 0 mls/hr PER PHARMACY IV 10/10/24 19:00 UNV Aspirin 81 mg DAILY PO 10/11/24 10:00 10/11/24 09:38 81 MG Clopidogrel Bisulfate 75 mg DAILY PO 10/11/24 10:00 10/11/24 09:38 75 MG Enteral Nutritional Formula 1,000 ml 40ML/HR GT 10/10/24 21:15 objective General: the patient is well developed and nourished. No acute distress. Intubated MUSCULOSKELETAL EXAM: Chronic ulcer in the right big toe, a small skin lesion in the left big toe MENTAL STATUS: Subjective SPEECH, LANGUAGE, HIGHER CORTICAL FUNCTION: Subjective CRANIAL NERVES: Pupils are equal, round and reactive. There is doll's eye, corneal reflexes. No sign of facial weakness. He has weak gag reflexes SENSATION: Responsive to stroke painful stimuli MOTOR: Muscle tone feels normal, no spontaneous extremity movement REFLEXES: Deep tendon reflexes feel symmetrical. No pathological reflexes. CEREBELLAR/COORDINATION: Deferred GAIT/STATION: deferred laboratory and microbiology Laboratory Tests 10/11/24 03:25 Test 10/11/24 03:25 Range/Units Serum Glucose 333 #H 74-106 mg/dL Problem List Altered mental status, secondary to Acute stroke Metabolic encephalopathy Rule out intracranial infection Acute respiratory failure Abnormal CT head Acute stroke Rule out encephalitis Prostatic abscess vs hematoma Rule out endocarditis Sepsis with MRSA Chronic diabetic wound History of substance abuse Assessment/Plan Monitoring Supportive treatment ICU care Follow up blood tests LP with CSF profile (hold) EEG TMI Follow-up CT head MR head when he is cooperative Stabilize vitals Respiratory support/vent management Aspirin 81 mg daily/ASA 300 mg suppository D/C Lipitor 20 mg daily (LDL: 39) IV antibiotics Haldol p.r.n. for agitation Infectious disease consultation Need to quit substance abuse More recommendation per clinical course This medical document was created using an electronic medical record system with [employer] dictation system. Although this document has been carefully reviewed, there may still be some phonetic and typographical errors. These areas are purely typographical due to imperfections of the software programs, and do not reflect any compromise in the patient's medical care. Prognosis Guarded Dietary Evaluation Review Comments: 1) Add cardiac restriction to 60g CCHO diet 2) Initiate Glucerna qd. Encourage optimal PO intake 3) Follow-up with urology and surgery 4) Follow-up with social sciences professor r/t methamphetamine abuse 5) Continue to monitor I&O, labs, and skin integrity Expected Outcomes/Goals: 1) appetite and labs to improve 2) wound to improve 3) f/u in 3-5 days Plan discussed with: Other Critical Care Time(min): 35 CALEB PAYNE MD Oct 11, 2024 19:42
--- NOTE | 2024-10-11 19:47 | DVHPN2 ---
Assessment/Plan Assessment/Plan ICU note 39 yo M now intubated, persistent MRSA bacteremia. Covering for dr Corbin Seen today,now intubated. reconsulitng cards for TIM. persistent bacteremia. daily culture till clears. prior imaging reviewed no focus of infection found. will deline and reline if appropriate. cr trend up, monitr physical exam intubated, sedated on mech vent PERLLA cough and gag s1 s2 rrr mechanical breath sounds abdomen soft trace le edema labs ekg imaging reviewed assessment and plan Acute toxic metabolic encephalopathy acut ehypoxic RF on mech vent Sepsis, unspecified organism SBE, possible, rule out Recurrent MRSA bacteremia endocarditis until ruled out Psychiatric illness, bipolar likely CVA, left MCA territory, likely embolic Meningitis? Possible, HSV encephalitis possible?, unable to rule out Febrile episodes Hypoalbuminemia Diabetes with hyperglycemia Ketosis, possible early DKA Hyponatremia Abdominal abscess Methamphetamine abuse JAYLEEN likely vanc Plan: Vancomycin trough high, not getting new dose Ceftriaxone 2 g c/w mech vent pressor maintain MAP >65 Neurology consult for ALOC ID consult recurrent MRSA bacteremia Cardiology consult for TIM Metronidazole IV Stop cefepime NPO due to altered mental status diet Nepro TF dvt ppx heprain gi ppx protonix condition critical prognosis poor critical care time 65 minutes Plan discussed with: Other Date of Service: Oct 11, 2024 Billing Provider: HAYLEE MCCANN MD Common Visit Codes: 37898-[id number] CARE 30-74 MIN HAYLEE MCCANN MD Oct 11, 2024 19:47
[2024-10-11] MEDS: SODIUM CHLORIDE 0.9% 500 ML IV ONE (20:00)
[2024-10-12] VITALS (94 sets, daily range): BP systolic 88–139; BP diastolic 57–89; PULSE 84–119; RESP 12–26; TEMP 97.5–99.7; O2SAT 98–100
[2024-10-12 04:06] LABS: Hemoglobin 7.4 g/dL (13.5-17.5); Mean Corpuscular Volume 85.0 fL (80.0-100.0)
[2024-10-12 04:10] LABS: Hematocrit 23.1 % (41.0-53.0); Mean Corpuscular Hemoglobin 27.2 pg (28.0-32.0); Nucleated Red Blood Cells % 0.1 %
[2024-10-12 04:21] LABS: Alkaline Phosphatase 78 U/L (46-116); Anion Gap 8 (5-15); BUN/Creatinine Ratio 14.8 (10.0-20.0); Carbon Dioxide 24 mmol/L (20-31); Magnesium 1.8 mg/dL (1.6-2.6); Potassium 3.9 mmol/L (3.5-5.1); Total Protein 6.1 g/dL (5.7-8.2)
[2024-10-12 04:44] LABS: Alanine Aminotransferase 9 U/L (7-40); Albumin 2.1 g/dL (3.2-4.8); Bilirubin, Total < 0.2 mg/dL (0.2-1.0); Blood Urea Nitrogen 36 mg/dL (9-23); Calcium 7.0 mg/dL (8.7-10.4); Chloride 115 mmol/L (98-107); Glucose 205 mg/dL (74-106); Sodium 147 mmol/L (136-145)
--- NOTE | 2024-10-12 05:36 | DVH ---
CHEST RADIOGRAPH Indication: Intubated Technique: Single frontal view of the chest was obtained COMPARISON: XY CHEST PORTABLE on DOS: 10/11/24, XY CHEST PORTABLE on DOS: 10/10/24, XY CHEST PORTABLE on DOS: 10/10/24, XY CHEST XRAY 1 VIEW on DOS: 10/05/24, XY CHEST PORTABLE on DOS: 10/02/24 FINDINGS: Lines and Tubes: Interval retraction of the endotracheal tube such that the tip now projects approxim ately 7.2 cm above level of the gallo. Remaining lines and tubes unchanged. Lungs: Clear Pleura: No effusion. No pneumothorax. Cardiomediastinal contours: Unremarkable Bones: Unremarkable IMPRESSION: 1. Interval retraction of endotracheal tube as above. Remaining lines and tubes unchanged. 2. No evidence of acute cardiopulmonary process.
[2024-10-12] MEDS: SODIUM CHLORIDE 0.9% 1,000 ML IV SCH (12:30)
--- NOTE | 2024-10-12 12:43 | DVHINCON2 ---
Date of service: Oct 12, [address] Zuñiga Reason for Consultation JAYLEEN History of Present Illness 39-year-old male past medical history of chronic urinary retention with recent prostate surgery had Kan catheter on admission, hypertension, history of methamphetamine abuse, diabetes, diabetic foot wound per family was MRSA positive receiving antibiotics recently treated for MRSA wound infection presented with several days of fevers chills weakness shortness of breath. His hospital course was notable for admission due to MRSA bacteremia and urinary tract infection. On hospital day two patient was noted to have acute cerebral infarction. On hospital day 7 patient is noted to be in acute respiratory distress patient was intubated transferred to the ICU due to shock. Patient developed subsequently progressive worsening renal function. Contributing factors CT with contrast on October 06 Persistent daily positive blood cultures showing MRSA Elevated vancomycin trough with elevated levels noted on the and on the Allergies: Coded Allergies: No Known Drug Allergy (Unverified Allergy, Unknown, 10/03/24) Home Meds Reported Medications Semaglutide (Ozempic) 8 Mg/3 Ml Inj, 2 MG SC QWEEKLY for 28 Days, #3 10/03/24 Insulin Glargine (Lantus Solostar) 100 Unit/Ml Inj, 20 UNIT SC QPM for 75 Days, #15 10/03/24 Empagliflozin (Jardiance) 25 Mg Tab, 1 TAB PO DAILY for 90 Days, #90 08/24/24 Metformin Hydrochloride (Metformin Hcl) 1,000 Mg Tab, 1 TAB PO BID for 90 Days, #180 08/24/24 Atorvastatin Calcium (Lipitor) 10 Mg Tab, 1 TAB PO QPM for 90 Days, #90 05/10/23 Family History: Family history: Diabetes mellitus GRANDMOTHER (UNK) Review of Systems Can not obtain due to critical illness H&P Exam Vital Signs/I&O Vital Sign Date Time Temp Pulse Resp B/P (MAP) Pulse Ox O2 Delivery O2 Flow Rate FiO2 10/12/24 11:35 90 20 97/65 (76) 100 30 10/12/24 08:00 Mechanical Ventilator+ 10/12/24 02:45 98.6 209.5 10/11/24 20:00 0 Intake and Output 10/11/24 10/12/24 19:00 07:00 Intake Total 2158.25 ml 823.5 ml Output Total 50 ml 50 ml Balance 2108.25 ml 773.5 ml Intake Oral 50 ml 30 ml IV Total 1996.25 ml 677.5 ml Tube Feeding 112 ml 116 ml Output Urine Total 50 ml 50 ml Physical Exam Middle-aged white male Appears critically ill Intubated Sedated Mildly on pressors Abdomen is soft No pitting edema Bilateral toe swelling with wound infection noted on the right toe Kan catheter has minimal urinary output Labs/Diagnostic Data Labs/Diagnostic Data Laboratory Tests Test 10/12/24 03:39 10/11/24 22:17 10/11/24 21:31 10/11/24 03:25 Range/Units White Blood Count 5.4 6.1 4.4-10.8 10^3/uL Red Blood Count 2.72 L 2.71 L 4.5-5.90 10^6/uL Hemoglobin 7.4 L 7.5 L 13.5-17.5 g/dL Hematocrit 23.1 L 23.2 L 41.0-53.0 % Mean Corpuscular Volume 85.0 85.9 80.0-100.0 fL Mean Corpuscular Hemoglobin 27.2 L 27.8 L 28.0-32.0 pg Mean Corpuscular Hemoglobin Concent 32.0 32.4 32.0-36.0 g/dL Red Cell Distribution Width 17.5 H 17.2 H 11.8-14.3 % Platelet Count 163 176 140-450 10^3/uL Mean Platelet Volume 7.6 7.7 6.9-10.8 fL Neutrophils (%) (Auto) 69.6 75.0 37.0-80.0 % Lymphocytes (%) (Auto) 22.2 16.9 10.0-50.0 % Monocytes (%) (Auto) 6.2 6.1 0.0-12.0 % Eosinophils (%) (Auto) 1.6 1.5 0.0-7.0 % Basophils (%) (Auto) 0.4 0.5 0.0-2.0 % Neutrophils # (Auto) 3.8 4.6 1.6-8.6 10 ^3/uL Lymphocytes # (Auto) 1.2 1.0 0.4-5.4 10 ^3/uL Monocytes # (Auto) 0.3 0.4 0-1.3 10 ^3/uL Eosinophils # (Auto) 0.1 0.1 0-0.8 10 ^3/uL Basophils # (Auto) 0 0 0-0.2 10 ^3/uL Nucleated Red Blood Cells 0.1 0.0 % Sodium Level 147 H 148 H 136-145 mmol/L Potassium Level 3.9 3.7 3.5-5.1 mmol/L Chloride Level 115 H 114 H 98-107 mmol/L Carbon Dioxide Level 24 25 20-31 mmol/L Anion Gap 8 9 5-15 Blood Urea Nitrogen 36 H 32 #H 9-23 mg/dL Creatinine 2.43 H 1.94 H 0.700-1.30 mg/dL Glomerular Filtration Rate Calc 34 44 >90 mL/min BUN/Creatinine Ratio 14.8 16.5 10.0-20.0 Serum Glucose 205 #H 333 #H 74-106 mg/dL Calcium Level 7.0 L 7.3 L 8.7-10.4 mg/dL Phosphorus Level 5.1 5.1 2.4-5.1 mg/dL Magnesium Level 1.8 1.8 1.6-2.6 mg/dL Total Bilirubin < 0.2 L < 0.2 L 0.2-1.0 mg/dL Aspartate Amino Transferase (AST) 12 L 16 13-40 U/L Alanine Aminotransferase (ALT) 9 11 7-40 U/L Alkaline Phosphatase 78 84 46-116 U/L Total Protein 6.1 6.0 5.7-8.2 g/dL Albumin 2.1 L 2.2 L 3.2-4.8 g/dL Vancomycin Level Trough 38.2 *H 5-10 ug/mL B-Type Natriuretic Peptide 102.53 0-100 pg/mL Test 10/10/24 18:42 10/10/24 15:50 10/10/24 05:07 10/09/24 17:23 Range/Units Blood Gas Specimen Type Arterial Arterial Blood Gas Sample Site Right radial Right radial Blood Gas Patient Temperature 37.0 37.0 Arterial Blood Date Drawn [id number] Arterial Blood pH 7.443 7.547 H 7.350-7.450 Arterial Blood Partial Pressure CO2 37.0 29.2 L 35.0-48.0 mmHg Arterial Blood Partial Pressure O2 115.6 H 75.1 L 83.0-108.0 mmHg Arterial Blood HCO3 24.7 24.8 21.0-28.0 mmol/L Arterial Blood Oxygen Saturation 98.1 H 95.4 94.0-98.0 % Arterial Blood Base Excess 0.7 2.5 -2.0-3.0 mmol/L Arterial Blood Oxyhemoglobin 97.0 94.4 94.0-98.0 % Arterial Blood Carboxyhemoglobin 0.9 0.7 0.5-1.5 % Arterial Blood Methemoglobin 0.2 0.4 0.0-1.5 % Simone Test Modified Yes Blood Gas Total Hemoglobin 7.60 L 8.30 L 13.5-17.5 g/dL Blood Gas Set Respiration Rate 20.0 Blood Gas Modality Vent - ac Room air FiO2 % 30.0 21.0 Blood Gas Tidal Volume 500.0 Blood Gas PEEP or CPAP 5.0 White Blood Count 6.5 4.4-10.8 10^3/uL Red Blood Count 2.97 L 4.5-5.90 10^6/uL Hemoglobin 8.1 L 13.5-17.5 g/dL Hematocrit 25.1 L 41.0-53.0 % Mean Corpuscular Volume 84.5 80.0-100.0 fL Mean Corpuscular Hemoglobin 27.4 L 28.0-32.0 pg Mean Corpuscular Hemoglobin Concent 32.5 32.0-36.0 g/dL Red Cell Distribution Width 17.0 H 11.8-14.3 % Platelet Count 211 140-450 10^3/uL Mean Platelet Volume 8.5 6.9-10.8 fL Neutrophils (%) (Auto) 73.0 37.0-80.0 % Lymphocytes (%) (Auto) 18.4 10.0-50.0 % Monocytes (%) (Auto) 6.6 0.0-12.0 % Eosinophils (%) (Auto) 1.2 0.0-7.0 % Basophils (%) (Auto) 0.8 0.0-2.0 % Neutrophils # (Auto) 4.8 1.6-8.6 10 ^3/uL Lymphocytes # (Auto) 1.2 0.4-5.4 10 ^3/uL Monocytes # (Auto) 0.4 0-1.3 10 ^3/uL Eosinophils # (Auto) 0.1 0-0.8 10 ^3/uL Basophils # (Auto) 0.1 0-0.2 10 ^3/uL Nucleated Red Blood Cells 0.1 % Sodium Level 151 #H 136-145 mmol/L Potassium Level 3.6 3.5-5.1 mmol/L Chloride Level 116 H 98-107 mmol/L Carbon Dioxide Level 24 20-31 mmol/L Anion Gap 11 5-15 Blood Urea Nitrogen 22 9-23 mg/dL Creatinine 0.96 0.700-1.30 mg/dL Glomerular Filtration Rate Calc 102 >90 mL/min BUN/Creatinine Ratio 22.9 H 10.0-20.0 Serum Glucose 182 H 74-106 mg/dL Calcium Level 7.7 L 8.7-10.4 mg/dL Random Vancomycin Level 15.2 H 5-10 ug/mL Vancomycin Level Trough 25.0 H 5-10 ug/mL Test 10/09/24 05:52 10/08/24 14:16 10/08/24 09:42 10/07/24 13:01 Range/Units White Blood Count 5.4 5.6 4.4-10.8 10^3/uL Red Blood Count 3.02 L 3.08 L 4.5-5.90 10^6/uL Hemoglobin 8.3 L 8.4 L 13.5-17.5 g/dL Hematocrit 25.8 L 25.8 L 41.0-53.0 % Mean Corpuscular Volume 85.5 83.8 80.0-100.0 fL Mean Corpuscular Hemoglobin 27.5 L 27.4 L 28.0-32.0 pg Mean Corpuscular Hemoglobin Concent 32.2 32.7 32.0-36.0 g/dL Red Cell Distribution Width 17.2 H 17.0 H 11.8-14.3 % Platelet Count 214 187 140-450 10^3/uL Mean Platelet Volume 8.3 8.0 6.9-10.8 fL Neutrophils (%) (Auto) 79.1 77.2 37.0-80.0 % Lymphocytes (%) (Auto) 12.6 12.8 10.0-50.0 % Monocytes (%) (Auto) 6.7 8.4 0.0-12.0 % Eosinophils (%) (Auto) 0.9 0.8 0.0-7.0 % Basophils (%) (Auto) 0.7 0.8 0.0-2.0 % Neutrophils # (Auto) 4.3 4.3 1.6-8.6 10 ^3/uL Lymphocytes # (Auto) 0.7 0.7 0.4-5.4 10 ^3/uL Monocytes # (Auto) 0.4 0.5 0-1.3 10 ^3/uL Eosinophils # (Auto) 0 0 0-0.8 10 ^3/uL Basophils # (Auto) 0 0 0-0.2 10 ^3/uL Nucleated Red Blood Cells 0.1 0.0 % Creatinine 0.88 0.70 0.700-1.30 mg/dL Glomerular Filtration Rate Calc 111 119 >90 mL/min Vancomycin Level Trough 23.9 H 18.7 H 5-10 ug/mL HIV (1&2) Antibody Negative Negative Test 10/07/24 09:00 10/06/24 17:10 10/06/24 05:39 10/05/24 18:40 Range/Units White Blood Count 5.1 5.0 # 6.9 4.4-10.8 10^3/uL Red Blood Count 3.29 L 3.18 L 3.32 L 4.5-5.90 10^6/uL Hemoglobin 8.9 L 8.7 L 9.0 L 13.5-17.5 g/dL Hematocrit 27.7 L 26.2 L 28.0 L 41.0-53.0 % Mean Corpuscular Volume 84.1 82.4 84.6 80.0-100.0 fL Mean Corpuscular Hemoglobin 27.1 L 27.3 L 27.1 L 28.0-32.0 pg Mean Corpuscular Hemoglobin Concent 32.3 33.1 32.1 32.0-36.0 g/dL Red Cell Distribution Width 17.1 H 16.9 H 16.8 H 11.8-14.3 % Platelet Count 167 130 L 138 L 140-450 10^3/uL Mean Platelet Volume 8.5 9.4 9.2 6.9-10.8 fL Neutrophils (%) (Auto) 74.0 76.5 37.0-80.0 % Lymphocytes (%) (Auto) 13.1 12.1 10.0-50.0 % Monocytes (%) (Auto) 11.4 10.7 0.0-12.0 % Eosinophils (%) (Auto) 1.1 0.4 0.0-7.0 % Basophils (%) (Auto) 0.4 0.3 0.0-2.0 % Neutrophils # (Auto) 3.8 3.8 1.6-8.6 10 ^3/uL Lymphocytes # (Auto) 0.7 0.6 0.4-5.4 10 ^3/uL Monocytes # (Auto) 0.6 0.5 0-1.3 10 ^3/uL Eosinophils # (Auto) 0.1 0 0-0.8 10 ^3/uL Basophils # (Auto) 0 0 0-0.2 10 ^3/uL Nucleated Red Blood Cells 0.1 0.1 % Erythrocyte Sedimentation Rate 102 H 0-20 mm/hr Sodium Level 144 # 138 136-145 mmol/L Potassium Level 3.8 3.5 3.5-5.1 mmol/L Chloride Level 107 103 98-107 mmol/L Carbon Dioxide Level 26 25 20-31 mmol/L Anion Gap 11 10 5-15 Blood Urea Nitrogen 14 14 9-23 mg/dL Creatinine 0.68 L 0.69 L 0.63 L 0.700-1.30 mg/dL Glomerular Filtration Rate Calc 121 120 123 >90 mL/min BUN/Creatinine Ratio 20.6 H 22.2 H 10.0-20.0 Serum Glucose 213 H 162 #H 74-106 mg/dL Calcium Level 7.8 L 8.1 L 8.7-10.4 mg/dL Total Bilirubin 0.2 0.2 0.2-1.0 mg/dL Aspartate Amino Transferase (AST) 28 30 13-40 U/L Alanine Aminotransferase (ALT) 17 16 7-40 U/L Alkaline Phosphatase 99 118 H 46-116 U/L C-Reactive Protein High Sensitivity 19.31 H <1.0 mg/dL Total Protein 6.2 6.3 5.7-8.2 g/dL Albumin 2.3 L 2.4 L 3.2-4.8 g/dL Triglycerides Level 153 H < 150 mg/dL Cholesterol Level 87 < 200 mg/dL LDL Cholesterol 39 < 100 mg/dL HDL Cholesterol 9 L 40-59 mg/dL Treponema pallidum Antibody Non-reactive Negative Vancomycin Level Trough 9.1 5-10 ug/mL Differential Total Cells Counted 100.0 100 Neutrophils % (Manual) 73 37.0-80.0 Band Neutrophils % (Manual) 5 Lymphocytes % (Manual) 13 10.0-50.0 Monocytes % (Manual) 8 0-12 Eosinophils % (Manual) 0 0-7 Basophils % (Manual) 0 0.0-2.0 Metamyelocytes % (manual) 0 Myelocytes % (Manual) 0 Promyelocytes % (Manual) 0 Blast Cells % (Manual) 0 Reactive Lymphocytes 1 Platelet Estimate Decreased Ammonia < 10 L 11-32 umol/L Test 10/05/24 18:15 10/05/24 15:02 10/05/24 11:48 10/05/24 08:01 Range/Units Blood Gas Specimen Type Arterial Blood Gas Sample Site Right radial Blood Gas Patient Temperature 37.0 Arterial Blood Date Drawn [id number] Arterial Blood pH 7.532 H 7.350-7.450 Arterial Blood Partial Pressure CO2 32.4 L 35.0-48.0 mmHg Arterial Blood Partial Pressure O2 64.2 L 83.0-108.0 mmHg Arterial Blood HCO3 26.6 21.0-28.0 mmol/L Arterial Blood Oxygen Saturation 92.9 L 94.0-98.0 % Arterial Blood Base Excess 4.0 H -2.0-3.0 mmol/L Arterial Blood Oxyhemoglobin 92.2 L 94.0-98.0 % Arterial Blood Carboxyhemoglobin 0.6 0.5-1.5 % Arterial Blood Methemoglobin 0.2 0.0-1.5 % Simone Test Modified Blood Gas Total Hemoglobin 9.60 L 13.5-17.5 g/dL Blood Gas Modality Room air FiO2 % 21.0 Urine Opiates Screen Neg NEGATIVE Urine Fentanyl Screen Neg NEGATIVE Urine Barbiturates Screen Neg NEGATIVE Urine Phencyclidine Screen Neg NEGATIVE Urine Amphetamines Screen Neg NEGATIVE Urine Benzodiazepines Screen Neg NEGATIVE Urine Cocaine Screen Neg NEGATIVE Urine Cannabinoids Screen Neg NEGATIVE POC Glucose 226 H 144 H 70-106 mg/dl Test 10/05/24 03:33 10/05/24 02:47 10/04/24 23:22 10/04/24 20:25 Range/Units POC Glucose 146 H 177 H 233 H 70-106 mg/dl White Blood Count 5.7 4.4-10.8 10^3/uL Red Blood Count 3.12 L 4.5-5.90 10^6/uL Hemoglobin 8.5 L 13.5-17.5 g/dL Hematocrit 26.2 L 41.0-53.0 % Mean Corpuscular Volume 83.9 80.0-100.0 fL Mean Corpuscular Hemoglobin 27.3 L 28.0-32.0 pg Mean Corpuscular Hemoglobin Concent 32.5 32.0-36.0 g/dL Red Cell Distribution Width 16.4 H 11.8-14.3 % Platelet Count 102 L 140-450 10^3/uL Mean Platelet Volume 9.7 6.9-10.8 fL Neutrophils (%) (Auto) 37.0-80.0 % Lymphocytes (%) (Auto) 10.0-50.0 % Monocytes (%) (Auto) 0.0-12.0 % Basophils (%) (Auto) 0.0-2.0 % Neutrophils # (Auto) 1.6-8.6 10 ^3/uL Lymphocytes # (Auto) 0.4-5.4 10 ^3/uL Monocytes # (Auto) 0-1.3 10 ^3/uL Differential Total Cells Counted 100.0 100 Neutrophils % (Manual) 74 37.0-80.0 Band Neutrophils % (Manual) 14 Lymphocytes % (Manual) 7 L 10.0-50.0 Monocytes % (Manual) 4 0-12 Eosinophils % (Manual) 1 0-7 Basophils % (Manual) 0 0.0-2.0 Metamyelocytes % (manual) 0 Myelocytes % (Manual) 0 Promyelocytes % (Manual) 0 Blast Cells % (Manual) 0 Reactive Lymphocytes 0 Platelet Estimate Decreased Anisocytosis (manual) Slight Creatinine 0.66 L 0.700-1.30 mg/dL Glomerular Filtration Rate Calc 122 >90 mL/min Thyroid Stimulating Hormone (TSH) 1.36 0.55-4.78 uIU/mL Vancomycin Level Trough 7.3 5-10 ug/mL Test 10/04/24 16:21 10/04/24 11:38 10/04/24 08:53 10/04/24 05:15 Range/Units POC Glucose 335 H 255 H 360 H 316 H 70-106 mg/dl White Blood Count 4.9 4.4-10.8 10^3/uL Red Blood Count 3.06 L 4.5-5.90 10^6/uL Hemoglobin 8.6 L 13.5-17.5 g/dL Hematocrit 26.0 #L 41.0-53.0 % Mean Corpuscular Volume 84.7 80.0-100.0 fL Mean Corpuscular Hemoglobin 28.0 28.0-32.0 pg Mean Corpuscular Hemoglobin Concent 33.1 32.0-36.0 g/dL Red Cell Distribution Width 16.9 H 11.8-14.3 % Platelet Count 113 L 140-450 10^3/uL Mean Platelet Volume 9.6 6.9-10.8 fL Neutrophils (%) (Auto) 37.0-80.0 % Lymphocytes (%) (Auto) 10.0-50.0 % Monocytes (%) (Auto) 0.0-12.0 % Basophils (%) (Auto) 0.0-2.0 % Neutrophils # (Auto) 1.6-8.6 10 ^3/uL Lymphocytes # (Auto) 0.4-5.4 10 ^3/uL Monocytes # (Auto) 0-1.3 10 ^3/uL Differential Total Cells Counted 100.0 100 Neutrophils % (Manual) 71 37.0-80.0 Band Neutrophils % (Manual) 13 Lymphocytes % (Manual) 12 10.0-50.0 Monocytes % (Manual) 4 0-12 Eosinophils % (Manual) 0 0-7 Basophils % (Manual) 0 0.0-2.0 Metamyelocytes % (manual) 0 Myelocytes % (Manual) 0 Promyelocytes % (Manual) 0 Blast Cells % (Manual) 0 Reactive Lymphocytes 0 Platelet Estimate Decreased Sodium Level 134 L 136-145 mmol/L Potassium Level 3.5 3.5-5.1 mmol/L Chloride Level 98 98-107 mmol/L Carbon Dioxide Level 27 20-31 mmol/L Anion Gap 9 5-15 Blood Urea Nitrogen 20 9-23 mg/dL Creatinine 0.85 0.700-1.30 mg/dL Glomerular Filtration Rate Calc 113 >90 mL/min BUN/Creatinine Ratio 23.5 H 10.0-20.0 Serum Glucose 308 H 74-106 mg/dL Calcium Level 8.2 L 8.7-10.4 mg/dL Total Bilirubin < 0.2 L 0.2-1.0 mg/dL Aspartate Amino Transferase (AST) 46 H 13-40 U/L Alanine Aminotransferase (ALT) 19 7-40 U/L Alkaline Phosphatase 148 H 46-116 U/L Total Protein 6.2 5.7-8.2 g/dL Albumin 2.6 L 3.2-4.8 g/dL Test 10/04/24 01:17 10/03/24 20:35 10/03/24 15:49 10/03/24 15:00 Range/Units POC Glucose 336 H 237 H 301 H 70-106 mg/dl Urine Opiates Screen Neg NEGATIVE Urine Fentanyl Screen Neg NEGATIVE Urine Barbiturates Screen Neg NEGATIVE Urine Phencyclidine Screen Neg NEGATIVE Urine Amphetamines Screen Pos NEGATIVE Urine Benzodiazepines Screen Neg NEGATIVE Urine Cocaine Screen Neg NEGATIVE Urine Cannabinoids Screen Neg NEGATIVE Test 10/03/24 11:34 10/03/24 08:28 10/03/24 04:25 10/02/24 21:24 Range/Units POC Glucose 211 H 229 H 70-106 mg/dl White Blood Count 4.8 6.1 4.4-10.8 10^3/uL Red Blood Count 3.57 L 3.41 L 4.5-5.90 10^6/uL Hemoglobin 9.8 L 9.5 L 13.5-17.5 g/dL Hematocrit 30.4 L 28.7 L 41.0-53.0 % Mean Corpuscular Volume 85.2 84.1 80.0-100.0 fL Mean Corpuscular Hemoglobin 27.6 L 27.7 L 28.0-32.0 pg Mean Corpuscular Hemoglobin Concent 32.4 32.9 32.0-36.0 g/dL Red Cell Distribution Width 16.5 H 16.6 H 11.8-14.3 % Platelet Count 135 L 203 140-450 10^3/uL Mean Platelet Volume 8.8 9.1 6.9-10.8 fL Neutrophils (%) (Auto) 79.8 37.0-80.0 % Lymphocytes (%) (Auto) 9.3 L 10.0-50.0 % Monocytes (%) (Auto) 9.2 0.0-12.0 % Eosinophils (%) (Auto) 1.3 0.0-7.0 % Basophils (%) (Auto) 0.4 0.0-2.0 % Neutrophils # (Auto) 3.8 1.6-8.6 10 ^3/uL Lymphocytes # (Auto) 0.4 0.4-5.4 10 ^3/uL Monocytes # (Auto) 0.4 0-1.3 10 ^3/uL Eosinophils # (Auto) 0.1 0-0.8 10 ^3/uL Basophils # (Auto) 0 0-0.2 10 ^3/uL Nucleated Red Blood Cells 0.2 % Sodium Level 136 # 130 L 136-145 mmol/L Potassium Level 3.8 4.0 3.5-5.1 mmol/L Chloride Level 98 95 L 98-107 mmol/L Carbon Dioxide Level 24 22 20-31 mmol/L Anion Gap 14 13 5-15 Blood Urea Nitrogen 24 H 23 9-23 mg/dL Creatinine 0.92 1.12 0.700-1.30 mg/dL Glomerular Filtration Rate Calc 108 85 >90 mL/min BUN/Creatinine Ratio 26.1 H 20.5 H 10.0-20.0 Serum Glucose 316 H 382 H 74-106 mg/dL Calcium Level 8.5 L 8.5 L 8.7-10.4 mg/dL Total Bilirubin 0.2 0.3 0.2-1.0 mg/dL Aspartate Amino Transferase (AST) 17 25 13-40 U/L Alanine Aminotransferase (ALT) 11 14 7-40 U/L Alkaline Phosphatase 113 121 H 46-116 U/L Total Protein 6.4 7.1 5.7-8.2 g/dL Albumin 2.7 L 3.1 L 3.2-4.8 g/dL Hepatitis B Surface Antigen Negative Negative Hepatitis C Antibody Negative Negative Differential Total Cells Counted 100.0 100 Neutrophils % (Manual) 78 37.0-80.0 Band Neutrophils % (Manual) 8 Lymphocytes % (Manual) 9 L 10.0-50.0 Monocytes % (Manual) 4 0-12 Eosinophils % (Manual) 0 0-7 Basophils % (Manual) 0 0.0-2.0 Metamyelocytes % (manual) 1 Myelocytes % (Manual) 0 Promyelocytes % (Manual) 0 Blast Cells % (Manual) 0 Reactive Lymphocytes 0 Platelet Estimate Adequate Prothrombin Time 12.3 H 9.3-11.8 sec Prothrombin Time INR 1.18 H 0.9-1.15 Activated Partial Thromboplast Time 34.4 24.5-34.5 SEC Lactic Acid Level 1.3 0.4-2.0 mmol/L Test 10/02/24 03:01 Range/Units Urine Color Colorless Yellow Urine Clarity Clear Clear Urine pH 5.0 5.0-9.0 Urine Specific [place] 1.020 1.001-1.035 Urine Protein Negative Negative Urine Ketones 1+ H Negative Urine Blood Trace H Negative /uL Urine Nitrite Negative Negative Urine Bilirubin Negative Negative Urine Urobilinogen Normal Negative mg/dL Urine Leukocyte Esterase Trace Negative /uL Urine RBC 1 0 - 3 /hpf Urine Microscopic WBC 13 H 0-3 /HPF Urine Squamous Epithelial Cells None seen <5 /hpf Urine Bacteria None seen None Seen /hpf Urine Glucose 4+ H Normal mg/dL Microbiology Date/Time Source Procedure Growth Status 10/09/24 11:25 Blood Blood Culture - Final Methicillin Resistant S.aureus Complete 10/03/24 00:00 Toe Gram Stain - Final Complete 10/03/24 00:00 Wound Culture - Final Methicillin Resistant S.aureus Enterococcus faecalis Complete Assessment 39-year-old male past medical history of chronic diabetic wound infections and MRSA infections of the lower extremity, history of methamphetamine abuse p resented to the hospital with sepsis secondary to MRSA bacteremia. His hospital course is notable for new acute CVA and acute respiratory failure status post intubation Acute kidney injury multifactorial hemodynamically mediated in the setting of shock, vanco nephrotoxicity Acute CVA MRSA bacteremia, lower extremity MRSA wound infection Chronic BPH status post TURP and Kan which was initially present on admission and exchanged Acute respiratory failure History of methamphetamine abuse Recommend increase in IV fluid hydration Discontinue vancomycin, discussed with primary medical team about change of antibiotic, plan to continue MRSA coverage Rule out endocarditis Septic emboli? Monitoring urinary output, diuretic trial Strict Is&Os Avoid contrast studies at this time unless absolutely necessary Wound care Daily labs and electrolyte correction No emergent indication for dialysis at this time however given patient's multiple comorbidities and rapid decline in condition he has a very guarded and poor renal prognosis and may require renal replacement therapy in the near future. Discussed this with the family at bedside Critical care time spent 40 minutes Total care time spent 70 minutes Plan discussed with: Other (mother) MEEK DEL CID MD Oct 12, 2024 12:43
--- NOTE | 2024-10-12 12:48 | DVHPN2 ---
Progress Note - Dictate Date Seen: Oct 12, 2024 Medical Necessity Reason Pt with a Central, PICC or Fol: No vital signs Vital Sign Date Time Temp Pulse Resp B/P (MAP) Pulse Ox O2 Delivery O2 Flow Rate FiO2 10/12/24 11:35 90 20 97/65 (76) 100 30 10/12/24 08:00 Mechanical Ventilator+ 10/12/24 02:45 98.6 209.5 10/11/24 20:00 0 Total Intake and Output 10/11/24 10/11/24 10/12/24 15:00 23:00 07:00 Intake Total 1541.25 ml 1017.0 ml 423.5 ml Output Total 50 ml 50 ml Balance 1541.25 ml 967.0 ml 373.5 ml medications Current Medications Medications Dose Ordered Sig/Dion Route Start Time Stop Time Status Last Admin Dose Admin Ceftriaxone Sodium/Dextrose 50 ml @ 50 mls/hr DAILY@0900 IV 10/06/24 09:00 10/12/24 09:00 50 MLS/HR Enoxaparin Sodium 40 mg DAILY SC 10/07/24 10:00 10/12/24 10:29 40 MG Metronidazole 100 ml @ 100 mls/hr Q8H IV 10/07/24 06:00 10/12/24 05:57 100 MLS/HR Linezolid 300 ml @ 150 mls/hr Q12HR IV 10/10/24 10:00 10/12/24 10:29 150 MLS/HR Acetaminophen 650 mg Q6HP PRN TX 10/10/24 10:00 10/10/24 15:18 650 MG Midazolam HCl 50 ml @ 1 mls/hr Q24H IV 10/10/24 17:15 10/12/24 00:58 5 MLS/HR Fentanyl Citrate 250 ml @ 2.5 mls/hr Q24H IV 10/10/24 17:15 10/12/24 00:56 12.5 MLS/HR Propofol 100 ml @ 2.496 mls/ hr Q24H IV 10/10/24 17:15 Norepinephrine Bitartrate 250 ml @ 3.75 mls/hr Q24H IV 10/10/24 17:45 10/12/24 00:57 7.5 MLS/HR Diagnostic Test (Pha) 1 strip Q6HR 10/11/24 00:00 9/7/25 06:02 1 STRIP Insulin Human Regular FOLLOW SLIDING SCALE Q6HR SC 10/11/24 00:00 10/12/24 06:02 6 UNITS Dextrose 50 ml UD IV 10/10/24 22:00 Amino Acids 0 ml @ 0 mls/hr PER PHARMACY IV 10/10/24 19:00 UNV Aspirin 81 mg DAILY PO 10/11/24 10:00 10/12/24 10:28 81 MG Clopidogrel Bisulfate 75 mg DAILY PO 10/11/24 10:00 10/12/24 10:28 75 MG Enteral Nutritional Formula 1,000 ml 40ML/HR GT 10/10/24 21:15 Sodium Chloride 1,000 ml @ 125 mls/hr Q8H IV 10/12/24 12:30 UNV laboratory and microbiology Laboratory Tests 10/12/24 03:39 Test 10/12/24 03:39 Range/Units Serum Glucose 205 #H 74-106 mg/dL Assessment/Plan Covering for Dr. Sanders [facility] rounds Impression Acute hypoxemic respiratory failure Persistent MRSA bacteremia Altered mental status Septic shock Patient seen and examined in ICU Events On mechanical ventilation S/p intubation PEEP 5, FiO2 35% Persistent growth of MRSA in blood Recent CT of the brain shows acute MCA infarct, ? septic emboli Creatinine continues to trend up Vancomycin level elevated, vanco discontinued Management Vent support Titrate to maintain sats 90% or above Sedation for vent synchrony Continue antibiotics F/u cultures and ID Bronchodilators Monitor renal function Monitor electrolytes Supplement as needed Pressors as needed for hemodynamic support To maintain a mean arterial pressure of 65 mmHg Obtain TIM to rule out endocarditis Will consider bronchoscopy in view of secretions DVT prophylaxis Critical care time 35 minutes Dietary Evaluation Review Comments: 1) Add cardiac restriction to 60g CCHO diet 2) Initiate Glucerna qd. Encourage optimal PO intake 3) Follow-up with urology and surgery 4) Follow-up with social insurance analyst r/t methamphetamine abuse 5) Continue to monitor I&O, labs, and skin integrity Expected Outcomes/Goals: 1) appetite and labs to improve 2) wound to improve 3) f/u in 3-5 days Plan discussed with: Other (Rn) HEIDI DOMINGUEZ MD Oct 12, 2024 12:48
--- NOTE | 2024-10-12 13:40 | DVHPN2 ---
Assessment/Plan Assessment/Plan ICU note 39 yo M now intubated, persistent MRSA bacteremia. Covering for dr Corbin Seen today, Cr worsening, nephro on board, dc vanc, trough high, double coverage with zyvox and dapto. pending TIM. physical exam intubated, sedated on mech vent PERLLA cough and gag s1 s2 rrr mechanical breath sounds abdomen soft trace le edema labs ekg imaging reviewed assessment and plan Acute toxic metabolic encephalopathy acut ehypoxic RF on mech vent Sepsis, unspecified organism SBE, possible, rule out Recurrent MRSA bacteremia endocarditis until ruled out Psychiatric illness, bipolar likely CVA, left MCA territory, likely embolic Meningitis? Possible, HSV encephalitis possible?, unable to rule out Febrile episodes Hypoalbuminemia Diabetes with hyperglycemia Ketosis, possible early DKA Hyponatremia Abdominal abscess Methamphetamine abuse JAYLEEN likely vanc Plan: Vancomycin dc, double cover with zyvox dapto Ceftriaxone 2 g c/w mech vent pressor maintain MAP >65 Neurology consult for ALOC ID consult recurrent MRSA bacteremia Cardiology consult for TMI Metronidazole IV Stop cefepime NPO due to altered mental status diet Nepro TF dvt ppx heprain gi ppx protonix condition critical prognosis poor critical care time 45 minutes Plan discussed with: Other My Orders Orders - HAYLEE MCCANN MD Procedure Category Date Status Time * Cardiology Consult CONS 10/11/24 Transmitted 19:44 Strict I & O CADE 10/11/24 In Process 19:48 *[facility] CONS 10/12/24 Transmitted -[place] 10:08 Daptomycin (Cubicin) PHA 10/13/24 Logged 10:00 Phosphorus LAB 10/13/24 Verified 04:00 Magnesium LAB 10/13/24 Verified 04:00 Date of Service: Oct 12, 2024 Billing Provider: HAYLEE MCCANN MD Common Visit Codes: [id number] CARE 30-74 MIN HAYLEE MCCANN MD Oct 12, 2024 13:40
[2024-10-12] MEDS: FUROSEMIDE 100 MG/10ML VIAL IV ONE (15:17)
--- NOTE | 2024-10-12 17:23 | MEDREC ---
[facility] Intervention Section I [facility] Intervention: Duplication of therapy (PLEASE CONSIDER D/C LINEZOLID SINCE BOTH LINEZOLID AND DAPTOMYCIN COVER FOR MRSA) KEVIN SEXTON PHARMACIST Oct 12, 2024 17:23
[2024-10-12] MEDS: DAPTOmycin 500 MG in SODIUM CHL 0.9% 50 ML IV SCH (18:16)
[2024-10-12] MEDS: Jevity 1.2 Cal/Fiber 1 Liter GT SCH (21:49)
[2024-10-13] VITALS (107 sets, daily range): BP systolic 90–131; BP diastolic 58–84; PULSE 85–114; RESP 12–50; TEMP 97.3–99.7; O2SAT 100
[2024-10-13] MEDS: FUROSEMIDE 100 MG/10ML VIAL IV ONE (02:46)
[2024-10-13] MEDS: FUROSEMIDE INJECTION 10 ML ONE (02:46)
[2024-10-13 03:45] LABS: Hemoglobin 7.4 g/dL (13.5-17.5); Nucleated Red Blood Cells % 0.0 %
[2024-10-13 03:48] LABS: Hematocrit 22.6 % (41.0-53.0); Mean Corpuscular Hemoglobin 27.6 pg (28.0-32.0); Mean Corpuscular Volume 84.5 fL (80.0-100.0)
[2024-10-13 04:06] LABS: Potassium 4.1 mmol/L (3.5-5.1)
[2024-10-13 04:07] LABS: Anion Gap 10 (5-15); Carbon Dioxide 22 mmol/L (20-31)
[2024-10-13 04:12] LABS: BUN/Creatinine Ratio 15.9 (10.0-20.0)
[2024-10-13 04:13] LABS: Magnesium 1.6 mg/dL (1.6-2.6)
[2024-10-13 04:20] LABS: Blood Urea Nitrogen 41 mg/dL (9-23); Calcium 7.0 mg/dL (8.7-10.4); Chloride 115 mmol/L (98-107); Glucose 137 mg/dL (74-106); Sodium 147 mmol/L (136-145)
--- NOTE | 2024-10-13 05:03 | DVH ---
CHEST RADIOGRAPH Indication: Intubated Technique: Single frontal view of the chest was obtained COMPARISON: XY CHEST PORTABLE on DOS: 10/12/24, XY CHEST PORTABLE on DOS: 10/11/24, XY CHEST PORTABLE on DOS: 10/10/24, XY CHEST PORTABLE on DOS: 10/10/24, XY CHEST XRAY 1 VIEW on DOS: 10/05/24 FINDINGS: Lines and Tubes: Slight interval advancement of endotracheal tube such that the tip now projects appr oximately 5.2 cm above the level of the gallo. Remaining lines and tubes unchanged. Lungs: Clear Pleura: No effusion. No pneumothorax. Cardiomediastinal contours: Unremarkable Bones: Unremarkable IMPRESSION: 1. Slight interval advancement of endotracheal tube. Remaining lines and tubes unchanged. 2. No evidence of acute cardiopulmonary process.
[2024-10-13 07:38] LABS: Base Excess -4.3 mmol/L (-2.0-3.0)
[2024-10-13] MEDS: ALBUMIN 25% 50 ML IV SCH (09:15)
--- NOTE | 2024-10-13 09:19 | DVHPN2 ---
Progress Note Date Seen: Oct 13, 2024 Medical Necessity Reason Pt with a Central, PICC or Fol: No Subjective Review of Systems: RESPIRATORY:Abnormal (Patient seen and examined by myself today in follow-up, patient remained intubated on ventilator) Other Systems: Patient seen and examined by myself today in follow-up, patient remained intubated on ventilator Objective vital signs Vital Sign Date Time Temp Pulse Resp B/P (MAP) Pulse Ox O2 Delivery O2 Flow Rate FiO2 10/13/24 08:00 20 100 Mechanical Ventilator+ 30 30 10/13/24 08:00 95 10/13/24 07:25 98/64 (75) 10/13/24 06:30 98.4 209.1 10/12/24 20:00 0 Total Intake and Output 10/12/24 10/12/24 10/13/24 15:00 23:00 07:00 Intake Total 546.25 ml 1722.50 ml 1677.50 ml Output Total 50 ml 100 ml Balance 546.25 ml 1672.50 ml 1577.50 ml medications Current Medications Medications Dose Ordered Sig/Dion Route Start Time Stop Time Status Last Admin Dose Admin Ceftriaxone Sodium/Dextrose 50 ml @ 50 mls/hr DAILY@0900 IV 10/06/24 09:00 10/12/24 09:00 50 MLS/HR Enoxaparin Sodium 40 mg DAILY SC 10/07/24 10:00 10/12/24 10:29 40 MG Metronidazole 100 ml @ 100 mls/hr Q8H IV 10/07/24 06:00 10/13/24 05:50 100 MLS/HR Linezolid 300 ml @ 150 mls/hr Q12HR IV 10/10/24 10:00 10/12/24 23:01 150 MLS/HR Acetaminophen 650 mg Q6HP PRN KS 10/10/24 10:00 10/10/24 15:18 650 MG Midazolam HCl 50 ml @ 1 mls/hr Q24H IV 10/10/24 17:15 10/13/24 05:28 6 MLS/HR Fentanyl Citrate 250 ml @ 2.5 mls/hr Q24H IV 10/10/24 17:15 10/13/24 06:35 20 MLS/HR Propofol 100 ml @ 2.496 mls/ hr Q24H IV 10/10/24 17:15 Norepinephrine Bitartrate 250 ml @ 3.75 mls/hr Q24H IV 10/10/24 17:45 10/13/24 06:36 3.75 MLS/HR Diagnostic Test (Pha) 1 strip Q6HR 10/11/24 00:00 10/13/24 06:33 1 STRIP Insulin Human Regular FOLLOW SLIDING SCALE Q6HR SC 10/11/24 00:00 10/13/24 06:51 2 UNITS Dextrose 50 ml UD IV 10/10/24 22:00 Amino Acids 0 ml @ 0 mls/hr PER PHARMACY IV 10/10/24 19:00 UNV Aspirin 81 mg DAILY PO 10/11/24 10:00 10/12/24 10:28 81 MG Clopidogrel Bisulfate 75 mg DAILY PO 10/11/24 10:00 10/12/24 10:28 75 MG Enteral Nutritional Formula 1,000 ml 40ML/HR GT 10/10/24 21:15 10/12/24 21:49 1,000 ML Sodium Chloride 1,000 ml @ 125 mls/hr Q8H IV 10/12/24 12:30 10/13/24 03:15 125 MLS/HR Daptomycin 500 mg/ Sodium Chloride 50 ml @ 100 mls/hr DAILY IV 10/12/24 17:00 10/12/24 18:16 100 MLS/HR Examination: LUNGS:Normal, CVS:Normal, MSK:Normal laboratory and microbiology Laboratory Tests 10/13/24 03:16 Test 10/13/24 03:16 Range/Units Serum Glucose 137 H 74-106 mg/dL Microbiology Date/Time Source Procedure Growth Status 10/11/24 21:30 Blood Blood Culture - Preliminary NO GROWTH AFTER 24 HOURS OF INCUBATION. Resulted 10/10/24 16:45 Sputum Expectorated Sputum Gram Stain Pending Resulted 10/10/24 16:45 Sputum Expectorated Sputum Respiratory Culture - Preliminary Resulted 10/03/24 00:00 Toe Gram Stain - Final Complete 10/03/24 00:00 Wound Culture - Final Methicillin Resistant S.aureus Enterococcus faecalis Complete Problem List/Assessment/Plan Problem List/Assessment/Plan Acute kidney injury multifactorial hemodynamically mediated Acute respiratory failure, patient intubated on ventilator Vancomycin nephrotoxicity Septic shock Acute CVA MRSA bacteremia Lower extremity MRSA wound infection BPH status post TURP with indwelling Kan catheter d History of methamphetamine abuse Hypoalbuminemia Hyponatremia due to insensible water loss Recommendations Kidney function slightly worsened today Decreased urine output Kan catheter Strict I&Os Discontinue vancomycin Check urine electrolytes and protein excretion Albumin 25% IV piggyback Start Bumex IV 0.5 milligram/hour to increased urine output IV pressors for blood pressure support We will continue to follow up Plan discussed with: Other (Nurse) Dietary Evaluation Review Comments: 1) Add cardiac restriction to 60g CCHO diet 2) Initiate Glucerna qd. Encourage optimal PO intake 3) Follow-up with urology and surgery 4) Follow-up with clinical social work aide r/t methamphetamine abuse 5) Continue to monitor I&O, labs, and skin integrity Expected Outcomes/Goals: 1) appetite and labs to improve 2) wound to improve 3) f/u in 3-5 days NATHALIA JOSEPH MD Oct 13, 2024 09:19
--- NOTE | 2024-10-13 10:16 | DVHINCON2 ---
Date Seen: Oct 13, 2024 Referring Physician MD Dontrell Reason for Consultation TIM History of Present Illness This is a 3-year-old man who presented to the emergency room with a chief complaint of generalized weakness. At time of assessment, the patient was found endotracheally intubated with 30% FiO2, on a single low-dose vasopressor, and chemically sedated. Information obtained from records which indicate the raya ent presented with complaints of generalized weakness associated with pyrexia and abdominal discomfort. The patient has been diagnosed with sepsis with persistent bacteremia prompting cardiology team evaluation for a transesophageal echocardiogram to rule out subacute endocarditis. A 12 lead electrocardiogram revealed a sinus tachycardia rhythm at 133 bpm. ESR and CRP levels are high. Significant medical history includes insulin-dependent diabetes mellitus, dyslipidemia, MRSA of urine, benign prostatic hyperplasia, and methamphetamine abuse. Past Medical History Past medical history reviewed. No other significant than mentioned above. Past Surgical History Prostate surgery Family History: Family history: Diabetes mellitus GRANDMOTHER (UNK) Family History Family history reviewed. Social History UDS positive for methamphetamines Allergies: Coded Allergies: No Known Drug Allergy (Unverified Allergy, Unknown, 10/03/24) Home Meds Reported Medications Semaglutide (Ozempic) 8 Mg/3 Ml Inj, 2 MG SC QWEEKLY for 28 Days, #3 10/03/24 Insulin Glargine (Lantus Solostar) 100 Unit/Ml Inj, 20 UNIT SC QPM for 75 Days, #15 10/03/24 Empagliflozin (Jardiance) 25 Mg Tab, 1 TAB PO DAILY for 90 Days, #90 08/24/24 Metformin Hydrochloride (Metformin Hcl) 1,000 Mg Tab, 1 TAB PO BID for 90 Days, #180 08/24/24 Atorvastatin Calcium (Lipitor) 10 Mg Tab, 1 TAB PO QPM for 90 Days, #90 05/10/23 Home Meds Home medications reviewed. Current Medications Current Medications Medications (Trade) Dose Ordered Sig/Dion Route PRN Reason Start Time Stop Time Status Last Admin Sodium Chloride 1,000 ml @ 125 mls/hr Q8H IV 10/12/24 12:30 10/13/24 03:15 Daptomycin 500 mg/ Sodium Chloride 50 ml @ 100 mls/hr DAILY IV 10/12/24 17:00 10/12/24 18:16 Albumin Human 50 ml @ 100 mls/hr Q8H IV 10/13/24 09:15 10/14/24 01:44 Bumetanide 12.5 mg/Miscellaneous 50 ml @ 2 mls/hr Q24H IV 10/13/24 09:15 Review of Systems Constitutional: Generalized weakness Ears, Nose, & Throat: No symptom reported Eyes: No symptom reported Neurological: No symptoms reported Pulmonary/Respiratory: No symptom reported Cardiovascular: No symptom reported Gastrointestinal: Abdominal pain Genitourinary: No symptom reported Musculoskeletal: No symptom reported Skin: No symptom reported Psychiatric: No symptom reported Endocrine: No symptom reported Hemotologic/Lymphatic: No symptom reported Vital Signs Vital Signs Date Time Temp Pulse Resp B/P (MAP) Pulse Ox O2 Delivery O2 Flow Rate FiO2 10/13/24 09:30 97.9 92 20 96/64 (75) 100 208.2 10/13/24 08:00 Mechanical Ventilator+ 30 30 10/13/24 08:00 0 Physical Exam General Appearance: Chemically sedated. Endotracheally intubated 30% FiO2 PEEP 5. On single-vasopressor Head Exam: Normal inspection Neck Exam: Normal inspection. Normal alignment Pulmonary/Respiratory: Endotracheally intubated. Diminished bilateral breath sounds Cardiovascular/Chest: Regular rate and rhythm. S1, S2. NSR. No murmurs. No JVD. Peripheral Pulses: 2+ Radial (R). 2+ Radial (L). 2+ Pedal (R). 2+ Pedal (L) Abdominal Exam: Normal bowel sounds. Soft. Ankle Exam: Negative ankle edema Lower extremities: Positive lower extremity edema, non-pitting Neuro/Mental Status: Withdrawn, chemically sedated Thoughts/Psych: Unable to assess at this time Appearance: Withdrawn Skin Exam: Normal inspection. Normal color. Warm. Dry Labs/Diagnostic Data Labs Test 10/13/24 07:26 10/13/24 03:16 10/12/24 14:00 10/12/24 03:39 Range/Units Blood Gas Specimen Type Arterial Blood Gas Sample Site Right radial Blood Gas Patient Temperature 37.0 Arterial Blood Date Drawn [id number] Arterial Blood pH 7.393 7.350-7.450 Arterial Blood Partial Pressure CO2 33.9 L 35.0-48.0 mmHg Arterial Blood Partial Pressure O2 62.4 L 83.0-108.0 mmHg Arterial Blood HCO3 20.2 L 21.0-28.0 mmol/L Arterial Blood Oxygen Saturation 91.6 L 94.0-98.0 % Arterial Blood Base Excess -4.3 L -2.0-3.0 mmol/L Arterial Blood Oxyhemoglobin 90.2 L 94.0-98.0 % Arterial Blood Carboxyhemoglobin 1.2 0.5-1.5 % Arterial Blood Methemoglobin 0.3 0.0-1.5 % Simone Test Modified Blood Gas Total Hemoglobin 6.30 *L 13.5-17.5 g/dL Blood Gas Set Respiration Rate 20.0 Blood Gas Modality Vent - ac FiO2 % 30.0 Blood Gas Tidal Volume 500.0 Blood Gas PEEP or CPAP 5.0 Blood Gas Critical Value Read Back yes Blood Gas Notified Whom zuleyka danielson md Blood Gas Notified Time [id number] Blood Gas Notified By dino zhang rrt White Blood Count 6.0 4.4-10.8 10^3/uL Red Blood Count 2.67 L 4.5-5.90 10^6/uL Hemoglobin 7.4 L 13.5-17.5 g/dL Hematocrit 22.6 L 41.0-53.0 % Mean Corpuscular Volume 84.5 80.0-100.0 fL Mean Corpuscular Hemoglobin 27.6 L 28.0-32.0 pg Mean Corpuscular Hemoglobin Concent 32.6 32.0-36.0 g/dL Red Cell Distribution Width 17.1 H 11.8-14.3 % Platelet Count 146 140-450 10^3/uL Mean Platelet Volume 7.6 6.9-10.8 fL Neutrophils (%) (Auto) 77.7 37.0-80.0 % Lymphocytes (%) (Auto) 15.8 10.0-50.0 % Monocytes (%) (Auto) 5.1 0.0-12.0 % Eosinophils (%) (Auto) 0.9 0.0-7.0 % Basophils (%) (Auto) 0.5 0.0-2.0 % Neutrophils # (Auto) 4.7 1.6-8.6 10 ^3/uL Lymphocytes # (Auto) 0.9 0.4-5.4 10 ^3/uL Monocytes # (Auto) 0.3 0-1.3 10 ^3/uL Eosinophils # (Auto) 0.1 0-0.8 10 ^3/uL Basophils # (Auto) 0 0-0.2 10 ^3/uL Nucleated Red Blood Cells 0.0 % Sodium Level 147 H 136-145 mmol/L Potassium Level 4.1 3.5-5.1 mmol/L Chloride Level 115 H 98-107 mmol/L Carbon Dioxide Level 22 20-31 mmol/L Anion Gap 10 5-15 Blood Urea Nitrogen 41 H 9-23 mg/dL Creatinine 2.58 H 0.700-1.30 mg/dL Glomerular Filtration Rate Calc 31 >90 mL/min BUN/Creatinine Ratio 15.9 10.0-20.0 Serum Glucose 137 H 74-106 mg/dL Calcium Level 7.0 L 8.7-10.4 mg/dL Phosphorus Level 5.5 H 2.4-5.1 mg/dL Magnesium Level 1.6 1.6-2.6 mg/dL Total Bilirubin < 0.2 L 0.2-1.0 mg/dL Aspartate Amino Transferase (AST) 12 L 13-40 U/L Alanine Aminotransferase (ALT) 9 7-40 U/L Alkaline Phosphatase 78 46-116 U/L Total Protein 6.1 5.7-8.2 g/dL Albumin 2.1 L 3.2-4.8 g/dL Test 10/11/24 22:17 10/11/24 21:31 10/10/24 05:07 10/07/24 13:01 Range/Units Vancomycin Level Trough 38.2 *H 5-10 ug/mL B-Type Natriuretic Peptide 102.53 0-100 pg/mL Random Vancomycin Level 15.2 H 5-10 ug/mL HIV (1&2) Antibody Negative Negative Test 10/07/24 09:00 10/05/24 18:40 10/05/24 15:02 10/05/24 11:48 Range/Units Erythrocyte Sedimentation Rate 102 H 0-20 mm/hr C-Reactive Protein High Sensitivity 19.31 H <1.0 mg/dL Triglycerides Level 153 H < 150 mg/dL Cholesterol Level 87 < 200 mg/dL LDL Cholesterol 39 < 100 mg/dL HDL Cholesterol 9 L 40-59 mg/dL Treponema pallidum Antibody Non-reactive Negative Differential Total Cells Counted 100.0 100 Neutrophils % (Manual) 73 37.0-80.0 Band Neutrophils % (Manual) 5 Lymphocytes % (Manual) 13 10.0-50.0 Monocytes % (Manual) 8 0-12 Eosinophils % (Manual) 0 0-7 Basophils % (Manual) 0 0.0-2.0 Metamyelocytes % (manual) 0 Myelocytes % (Manual) 0 Promyelocytes % (Manual) 0 Blast Cells % (Manual) 0 Reactive Lymphocytes 1 Platelet Estimate Decreased Ammonia < 10 L 11-32 umol/L Urine Opiates Screen Neg NEGATIVE Urine Fentanyl Screen Neg NEGATIVE Urine Barbiturates Screen Neg NEGATIVE Urine Phencyclidine Screen Neg NEGATIVE Urine Amphetamines Screen Neg NEGATIVE Urine Benzodiazepines Screen Neg NEGATIVE Urine Cocaine Screen Neg NEGATIVE Urine Cannabinoids Screen Neg NEGATIVE POC Glucose 226 H 70-106 mg/dl Test 10/05/24 02:47 10/03/24 04:25 10/02/24 21:24 10/02/24 03:01 Range/Units Anisocytosis (manual) Slight Thyroid Stimulating Hormone (TSH) 1.36 0.55-4.78 uIU/mL Hepatitis B Surface Antigen Negative Negative Hepatitis C Antibody Negative Negative Prothrombin Time 12.3 H 9.3-11.8 sec Prothrombin Time INR 1.18 H 0.9-1.15 Activated Partial Thromboplast Time 34.4 24.5-34.5 SEC Lactic Acid Level 1.3 0.4-2.0 mmol/L Urine Color Colorless Yellow Urine Clarity Clear Clear Urine pH 5.0 5.0-9.0 Urine Specific [place] 1.020 1.001-1.035 Urine Protein Negative Negative Urine Ketones 1+ H Negative Urine Blood Trace H Negative /uL Urine Nitrite Negative Negative Urine Bilirubin Negative Negative Urine Urobilinogen Normal Negative mg/dL Urine Leukocyte Esterase Trace Negative /uL Urine RBC 1 0 - 3 /hpf Urine Microscopic WBC 13 H 0-3 /HPF Urine Squamous Epithelial Cells None seen <5 /hpf Urine Bacteria None seen None Seen /hpf Urine Glucose 4+ H Normal mg/dL Microbiology Date/Time Source Procedure Growth Status 10/11/24 21:30 Blood Blood Culture - Preliminary NO GROWTH AFTER 24 HOURS OF INCUBATION. Resulted 10/10/24 16:45 Sputum Expectorated Sputum Gram Stain Pending Resulted 10/10/24 16:45 Sputum Expectorated Sputum Respiratory Culture - Preliminary Resulted 10/03/24 00:00 Toe Gram Stain - Final Complete 10/03/24 00:00 Wound Culture - Final Methicillin Resistant S.aureus Enterococcus faecalis Complete Assessment Persistent bacteremia rule out subacute endocarditis Recurrent MRSA bacteremia CVA, left MCA territory, rule out cardioembolic source Cephalic vein thrombus [id number] diabetes mellitus Methamphetamine abuse Dyslipidemia Plan/Recommendation (Dr. Casiano) Case discussed with Dr. Casiano. Scheduled for a transesophageal echocardiogram at first available. All risks and benefits of the procedure were discussed with mother, Ana Maria Dick, over the phone who agrees to proceed with intervention. All questions answered. In the meantime, continue Nephrology, Neurology, and Infectious Disease recommendations. Continue ABX therapy. Currently on antiplatelet therapy per Neurology team. Continue DVT/VTE prophylaxis. Given downtrending H&H levels, DOAC therapy not indicated at this time. Initiate DOAC with stable H&H and no signs of bleeding. Monitor ECG changes closely and notify cardiology of any tachyarrhythmias. Patient can benefit of an outpatient event monitor. In the setting of an unremarkable TIM, there is no further cardiac work-up indicated at this time. Thank you for allowing us to participate in this patient's care. Please call if you have any questions or concerns. Critical care time: 40 min. This medical document was created using an electronic medical record system with voice recognition software and computerized dictation system. Although this document has been carefully reviewed, there might still be some phonetic and typographical errors. Occasional wrong-word or ``sound-alike substitutions may have occurred due to the inherent limitations of voice recognition software. These areas are purely typographical due to imperfections of the software programs and do not reflect any compromise in the patient's medical care. Please read the chart carefully and recognize, using context, where these substitutions have occurred. Plan discussed with: Other (Mother, primary RN) NYHA Physical activity limitations: NA Date of Service: Oct 13, 2024 Billing Provider: ARI WATKINS Cardiology Common Codes: [id number] CARE 30-74 MIN ARI WATKINS Oct 13, 2024 10:16
--- NOTE | 2024-10-13 10:49 | DVHPN2 ---
Progress Note - Dictate Date Seen: Oct 13, 2024 Medical Necessity Reason Pt with a Central, PICC or Fol: No Subjective Mr. Velazquez is a 39 years old gentleman with a history of diabetes, GERD, bipolar disorder, schizophrenia, chronic diabetic ulcer, he was brought to the [facility] on 10/02/2024 with a chief company of fever, the patient is also noticed to have altered mental status, in the CT brain scan showed evidence suggestive of left MCA territory acute stroke. Because of fever, worsening mental status, that is was intubated and transferred to ICU on 10/10/24 I have seen and examined the patient, talked to his nurse, intubated, sedated, responsive to stroke painful stimuli, Levo 2 mcg/minute, Versed 5 mg/hour, fentanyl 200 mcg/hour Blood culture, 10/02/2024: MRSA Blood culture, 10/03/2024: MRSA Blood culture, 10/04/2024: MRSA UDS, 10/03/2024: MsAbad Amphetamine, 09/3124: Negative Urinalysis, 10/02/2024: WBC: 30, urine leukocyte esterase: Trace WBC/HB/PLT/MCV, 10/06/2024: 5/8.7/130/82.4, 10/10/2024: 6.5/8.1/211/84.5, , 10/11/2024: 6.1/7.5/176/85.9 PTT/INR/eight six, 10/02/2024: 12.3/1.18/34.4 Na, 10/07/2024: 144 10/10/2024: 151, 10/11/2024: 148 CMP, 10/05/2024: Unremarkable BUN/CR, 10/10/2024: 22/0.96, 10/11/2024: 32/1.94 GFR, 10/10/2024: 102, 10/11/2024: 44 Liver function tests, 10/11/2024: Unremarkable HGB A1c, 05/10/2023: >14 TG/HDL/LDL/HDL, 10/07/2024: 153/87/39/9 Echocardiogram, 10/06/2024: Technically good study. Off axis views. Limited views obtained. There appears to be biatrial enlargement and LV enlargement. Mild aortic root enlargement. Valves appear to be structurally normal. Left ventricular function is borderline at 45 to 50% anteroseptal hypokinesis.. Normal RV function. Mild TR. No pericardial effusion masses or vegetations. CT head, 10/05/2024: Acute left MCA territory infarct in left insula/temporal operculum/temporal lobe. No hemorrhage or mass effect Sedated, 10/09/2024: 1. Interval progression in evolution of left middle cerebral artery territory infarct involving the insula / temporal are operculum/ temporal lobe with associated loss of khoury-white matter differentiation and progressively diminished parenchymal attenuation. 2. No evidence of intracranial hemorrhage, mass effect, midline shift or herniation. 3. Chronic sequelae of microangiopathy and atrophic cortical volume loss. CT abdomen/pelvis, 10/06/2024: 1. Trace bilateral pleural effusions with adjacent atelectasis and patchy posterior bibasilar pulmonary infiltrate. 2. Hepatomegaly. 3. Excess retained colorectal stool and moderate proximal mechanical small-bowel obstruction. 4. Moderate gas and Kan catheter within the urinary bladder CTA head, neck, 10/05/2024: 1. No evidence of acute intracranial hemorrhage, mass effect or hydrocephalus. 2. No evidence of hemodynamically significant intracranial stenosis, proximal occlusion or aneurysm. 3. No evidence of hemodynamically significant cervical stenosis or dissection vital signs Vital Sign Date Time Temp Pulse Resp B/P (MAP) Pulse Ox O2 Delivery O2 Flow Rate FiO2 10/13/24 10:20 92 20 107/73 (84) 100 30 10/13/24 09:30 97.9 208.2 10/13/24 08:00 Mechanical Ventilator+ 10/13/24 08:00 0 Total Intake and Output 10/12/24 10/12/24 10/13/24 15:00 23:00 07:00 Intake Total 546.25 ml 1722.50 ml 1677.50 ml Output Total 50 ml 100 ml Balance 546.25 ml 1672.50 ml 1577.50 ml medications Current Medications Medications Dose Ordered Sig/Dion Route Start Time Stop Time Status Last Admin Dose Admin Ceftriaxone Sodium/Dextrose 50 ml @ 50 mls/hr DAILY@0900 IV 10/06/24 09:00 10/12/24 09:00 50 MLS/HR Enoxaparin Sodium 40 mg DAILY SC 10/07/24 10:00 10/12/24 10:29 40 MG Metronidazole 100 ml @ 100 mls/hr Q8H IV 10/07/24 06:00 10/13/24 05:50 100 MLS/HR Linezolid 300 ml @ 150 mls/hr Q12HR IV 10/10/24 10:00 10/12/24 23:01 150 MLS/HR Acetaminophen 650 mg Q6HP PRN MA 10/10/24 10:00 10/10/24 15:18 650 MG Midazolam HCl 50 ml @ 1 mls/hr Q24H IV 10/10/24 17:15 10/13/24 05:28 6 MLS/HR Fentanyl Citrate 250 ml @ 2.5 mls/hr Q24H IV 10/10/24 17:15 10/13/24 06:35 20 MLS/HR Propofol 100 ml @ 2.496 mls/ hr Q24H IV 10/10/24 17:15 Norepinephrine Bitartrate 250 ml @ 3.75 mls/hr Q24H IV 10/10/24 17:45 10/13/24 06:36 3.75 MLS/HR Diagnostic Test (Pha) 1 strip Q6HR 10/11/24 00:00 10/13/24 06:33 1 STRIP Insulin Human Regular FOLLOW SLIDING SCALE Q6HR SC 10/11/24 00:00 10/13/24 06:51 2 UNITS Dextrose 50 ml UD IV 10/10/24 22:00 Amino Acids 0 ml @ 0 mls/hr PER PHARMACY IV 10/10/24 19:00 UNV Aspirin 81 mg DAILY PO 10/11/24 10:00 10/12/24 10:28 81 MG Clopidogrel Bisulfate 75 mg DAILY PO 10/11/24 10:00 10/12/24 10:28 75 MG Enteral Nutritional Formula 1,000 ml 40ML/HR GT 10/10/24 21:15 10/12/24 21:49 1,000 ML Sodium Chloride 1,000 ml @ 125 mls/hr Q8H IV 10/12/24 12:30 10/13/24 03:15 125 MLS/HR Daptomycin 500 mg/ Sodium Chloride 50 ml @ 100 mls/hr DAILY IV 10/12/24 17:00 10/12/24 18:16 100 MLS/HR Albumin Human 50 ml @ 100 mls/hr Q8H IV 10/13/24 09:15 10/14/24 01:44 Bumetanide 12.5 mg/Miscellaneous 50 ml @ 2 mls/hr Q24H IV 10/13/24 09:15 objective General: the patient is well developed and nourished. No acute distress. Intubated MUSCULOSKELETAL EXAM: Chronic ulcer in the right big toe, a small skin lesion in the left big toe MENTAL STATUS: Subjective SPEECH, LANGUAGE, HIGHER CORTICAL FUNCTION: Subjective CRANIAL NERVES: Pupils are equal, round and reactive. There is doll's eye, corneal reflexes. No sign of facial weakness. He has gag reflexes SENSATION: Responsive to stroke painful stimuli MOTOR: Muscle tone feels normal, no spontaneous extremity movement REFLEXES: Deep tendon reflexes feel symmetrical. No pathological reflexes. CEREBELLAR/COORDINATION: Deferred GAIT/STATION: deferred laboratory and microbiology Laboratory Tests 10/13/24 03:16 Test 10/13/24 03:16 Range/Units Serum Glucose 137 H 74-106 mg/dL Problem List Altered mental status, secondary to Acute stroke Metabolic encephalopathy Rule out intracranial infection Acute respiratory failure Abnormal CT head Acute stroke Rule out encephalitis Prostatic abscess vs hematoma Rule out endocarditis Sepsis with MRSA Chronic diabetic wound History of substance abuse Assessment/Plan Monitoring Supportive treatment ICU care Follow up blood tests LP with CSF profile (hold) EEG TIM Will try the MRI again MR head Stabilize vitals Respiratory support/vent management Aspirin 81 mg daily/ASA 300 mg suppository D/C Lipitor 20 mg daily (LDL: 39) IV antibiotics Haldol p.r.n. for agitation Infectious disease consultation Need to quit substance abuse More recommendation per clinical course This medical document was created using an electronic medical record system with [employer] dictation system. Although this document has been carefully reviewed, there may still be some phonetic and typographical errors. These areas are purely typographical due to imperfections of the software programs, and do not reflect any compromise in the patient's medical care. Prognosis guarded Dietary Evaluation Review Comments: 1) Add cardiac restriction to 60g CCHO diet 2) Initiate Glucerna qd. Encourage optimal PO intake 3) Follow-up with urology and surgery 4) Follow-up with social work lecturer r/t methamphetamine abuse 5) Continue to monitor I&O, labs, and skin integrity Expected Outcomes/Goals: 1) appetite and labs to improve 2) wound to improve 3) f/u in 3-5 days Plan discussed with: Other Critical Care Time(min): 35 CALEB PAYNE MD Oct 13, 2024 10:49
--- NOTE | 2024-10-13 10:59 | DVHPN2 ---
Subjective Patient is seen at bedside today. Appears ill Reviewed: Care Plan Changes from previous H/P or p: No Changes General: Per HPI Eyes: No Pain, No Vision change, No Conjunctivae inflammation, No Eyelid inflammation, No Other, No Redness ENT: No Ear pain, No Ear discharge, No Nose pain, No Nose discharge, No Nose congestion, No Mouth pain, No Mouth swelling, No Throat pain, No Throat swelling, No Other Cardiovascular: No Chest Pain, No Palpitations, No Orthopnea, No Paroxysmal Noc. Dyspnea, No Edema, No Lt Headedness, No Other Respiratory: No Cough, No Dry, No Shortness of breath, No SOB with excertion, No Wheezing, No Hemoptysis, No Pleuritic Pain, No Sputum, No Other Gastrointestinal: No Nausea, No Vomiting; Abdominal Pain; No Diarrhea, No Constipation, No Melena, No Hematochezia, No Other Genitourinary: No Dysuria, No Frequency, No Incontinence, No Hematuria, No Retention; Other (Kan catheter in place) Musculoskeletal: No other, No neck pain, No shoulder pain, No arm pain, No back pain, No hand pain, No leg pain, No foot pain Skin: No Rash, No Lesions, No Jaundice, No Bruising, No Other Objective Vitals Vital Signs Date Time Temp Pulse Resp B/P (MAP) Pulse Ox O2 Delivery O2 Flow Rate FiO2 10/13/24 10:20 92 20 107/73 (84) 100 30 10/13/24 09:30 97.9 208.2 10/13/24 08:00 Mechanical Ventilator+ 10/13/24 08:00 0 Intake/Output Intake and Output 10/13/24 07:00 Intake Total 3946.25 ml Output Total 150 ml Balance 3796.25 ml Intake Oral 30 ml IV Total 3866.25 ml Tube Feeding 50 ml Output Urine Total 150 ml Exam GEN: A&O times 1 HEENT: NC/AT; MMM. CV: Tachycardia, regular rhythm LUNGS: CTAB, no w/r/c. ABD: Soft, NT/ND, NBS, no masses or organomegaly. EXT: skin Warm, well perfused. no rashes. No clubbing, cyanosis, or edema. R ight toe wrapped in gauze, chronic ulcer NEURO: Ambulating with no limitations. No focal deficits. Medications Current Medications Medications Dose Ordered Sig/Dion Route Start Time Stop Time Status Last Admin Dose Admin Ceftriaxone Sodium/Dextrose 50 ml @ 50 mls/hr DAILY@0900 IV 10/06/24 09:00 10/12/24 09:00 50 MLS/HR Enoxaparin Sodium 40 mg DAILY SC 10/07/24 10:00 10/12/24 10:29 40 MG Metronidazole 100 ml @ 100 mls/hr Q8H IV 10/07/24 06:00 10/13/24 05:50 100 MLS/HR Linezolid 300 ml @ 150 mls/hr Q12HR IV 10/10/24 10:00 10/12/24 23:01 150 MLS/HR Acetaminophen 650 mg Q6HP PRN MD 10/10/24 10:00 10/10/24 15:18 650 MG Midazolam HCl 50 ml @ 1 mls/hr Q24H IV 10/10/24 17:15 10/13/24 05:28 6 MLS/HR Fentanyl Citrate 250 ml @ 2.5 mls/hr Q24H IV 10/10/24 17:15 10/13/24 06:35 20 MLS/HR Propofol 100 ml @ 2.496 mls/ hr Q24H IV 10/10/24 17:15 Norepinephrine Bitartrate 250 ml @ 3.75 mls/hr Q24H IV 10/10/24 17:45 10/13/24 06:36 3.75 MLS/HR Diagnostic Test (Pha) 1 strip Q6HR 10/11/24 00:00 10/13/24 06:33 1 STRIP Insulin Human Regular FOLLOW SLIDING SCALE Q6HR SC 10/11/24 00:00 10/13/24 06:51 2 UNITS Dextrose 50 ml UD IV 10/10/24 22:00 Amino Acids 0 ml @ 0 mls/hr PER PHARMACY IV 10/10/24 19:00 UNV Aspirin 81 mg DAILY PO 10/11/24 10:00 10/12/24 10:28 81 MG Clopidogrel Bisulfate 75 mg DAILY PO 10/11/24 10:00 10/12/24 10:28 75 MG Enteral Nutritional Formula 1,000 ml 40ML/HR GT 10/10/24 21:15 10/12/24 21:49 1,000 ML Sodium Chloride 1,000 ml @ 125 mls/hr Q8H IV 10/12/24 12:30 10/13/24 03:15 125 MLS/HR Daptomycin 500 mg/ Sodium Chloride 50 ml @ 100 mls/hr DAILY IV 10/12/24 17:00 10/12/24 18:16 100 MLS/HR Albumin Human 50 ml @ 100 mls/hr Q8H IV 10/13/24 09:15 10/14/24 01:44 Bumetanide 12.5 mg/Miscellaneous 50 ml @ 2 mls/hr Q24H IV 10/13/24 09:15 Laboratory Results Laboratory Tests 10/13/24 03:16 Chemistry Test 10/13/24 03:16 Calcium Level 7.0 mg/dL (8.7-10.4) L Magnesium Level 1.6 mg/dL (1.6-2.6) Phosphorus Level 5.5 mg/dL (2.4-5.1) H Urinalysis Test 10/02/24 03:01 Urine Color Colorless (Yellow) Urine Clarity Clear (Clear) Urine pH 5.0 (5.0-9.0) Urine Specific [place] 1.020 (1.001-1.035) Urine Protein Negative (Negative) Urine Ketones 1+ (Negative) H Urine Blood Trace /uL (Negative) H Urine Nitrite Negative (Negative) Urine Bilirubin Negative (Negative) Urine Urobilinogen Normal mg/dL (Negative) Urine Leukocyte Esterase Trace /uL (Negative) Urine RBC 1 /hpf (0 - 3) Urine Microscopic WBC 13 /HPF (0-3) H Urine Squamous Epithelial Cells None seen /hpf (<5) Urine Bacteria None seen /hpf (None Seen) Urine Glucose 4+ mg/dL (Normal) H Blood Gas Results Test 10/13/24 07:26 Arterial Blood pH 7.393 (7.350-7.450) FiO2 % 30.0 Microbiology Microbiology Date/Time Source Procedure Growth Status 10/11/24 21:30 Blood Blood Culture - Preliminary NO GROWTH AFTER 24 HOURS OF INCUBATION. Resulted 10/10/24 16:45 Sputum Expectorated Sputum Gram Stain Pending Resulted 10/10/24 16:45 Sputum Expectorated Sputum Respiratory Culture - Preliminary Resulted 10/03/24 00:00 Toe Gram Stain - Final Complete 10/03/24 00:00 Wound Culture - Final Methicillin Resistant S.aureus Enterococcus faecalis Complete Labs and/or images reviewed: Labs reviewed by me, Image(s) reviewed by me Assessment/Plan Assessment/Plan patient is a 39-year-old male with past medical history of diabetes mellitus, MRSA of the urine, hyperlipidemia, and methamphetamine abuse presented to [facility] ED with complaint of fever. Patient reports he has been experiencing fever, associated with generalized weakness, abdominal pain, presents with Kan catheter in place due to recent prostate surgery. Patient was seen and evaluated in the ED, laboratory data shows WBC 6.1, hemoglobin 9.5, hematocrit 28.7, platelets 203, sodium 130, potassium 4.0, BUN 23, creatinine 1.12, glucose 382, calcium 8.5, albumin 3.1, blood pressure 110/70, heart rate 136 trending down to 96, temperature 103.2 F trending down to 97.6 F, O2 saturation 95% on room air. Abdomen/pelvis CT revealing evidence of left sacroiliitis with gas and fluid extending into left pelvic muscles likely representing abscess; rectal wall thickening correlate for symptoms of proctitis; Kan catheter decompressed urinary bladder with wall thickening; hypodense appearance of the mildly enlarged prostate, cystitis and prostatitis or possible. Patient was started on IV antibiotic regimen vancomycin, 10/03: Patient has very high fevers up to 103, CT showing left sacroiliitis with gas fluid in 2 left pelvic muscles possible abscess. We will consult surgery. There is also proctitis and bladder wall thickening. We will continue broad- spectrum IV antibiotics. ?Concern of IVDU ,. Patient is tremulous mildly we will continue watching for alcohol withdrawal. We will monitor. We will need UDS. Significant hyperglycemia, diabetes likely complicating and/or causing wound/healing. Patient had recent prostate surgery and possible good fentanyl to be related to that, surgery is recommended urology evaluation. Urology consult placed. 10/04: DC patient's culture came VAC MRSA, already on vancomycin. Continue IV antibiotics. Surgery in urology following. Just adjust pain meds prn per patient.. Increase sliding scale, better control glucose,. Diet order was incorrect, fixed to low carb. We will start Lantus 20 HS,. Continue present therapy 10/05: Patient appears altered today, had some visitors prior. Per RN patient has been normal for that. We will get stat CT, UDS and we will continue ongoing treatment and workup. Surgery and Urology both recommend continuing IV antibiotics, IR consult for possible drainage. Initial CT head negative, UDS negative. Patient continues to be confused had a fall. Repeating head CT again. Getting stat portable chest x-ray, repeat CBC CMP, TSH, ammonia, ABG stat, at sitter one-to-one, neurology consult for altered mental status 10/06: 2nd CT yesterday showed left MCA territory stroke. Patient's blood cultures continue to, with MRSA vanc sensitive. Continuing vanc. I am suspicious of endocarditis. We will get echocardiogram continue vanc. Not totally convinced of stroke causing confusion. Confusion/encephalopathy might be from sepsis, or other causes. We will hold off lumbar puncture right now and have follow up with Neurology to rule out meningitis/HSV encephalitis. Tomorrow we will get HIV/trapped antibody test. Start aspirin Plavix, statin, echo. 10/07: Echo is negative for vegetations, blood cultures were redrawn pending. Neurology agrees with LP. Neurology also agrees with ETHEL. Consult placed. Treponemal antibody/HIV pending. Yesterday we restarted patient's bipolar medication Abilify. Continuing vanc/ceftriaxone/metronidazole. 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 Using Haldol and Ativan prn to control agitation, 10/08: Patient continues to require Ativan due to behavioral issues due to sepsis encephalopathy on top of baseline behavioral bipolar disorder. Taking patient for LP today likely, cardiology is holding off ETHEL evaluation given patient is encephalopathic, patient's blood cultures 3rd time are both with early signs of Gram-positive cocci. Urology is getting MRI pelvis to evaluate for history of prostatic abscess. CT right great toe yesterday with chronic changes from osteomyelitis, this wound also showed MRSA. Pharmacy has some concern of vancomycin having low MAC. At this point it is unclear source of MRSA with recurrent MRSA, we will consult ID and continue to wait for improvement of patient's mental status to get ETHEL as concern for endocarditis emboli remains very possible given patient had left MCA stroke with clean corotids/vasculature. 10/09: Patient has bipolar, unable to make decisions, does not understand the severity of illness. Continuing behavioral control with the Haldol and Ativan. Holding off LP patient is agitated unable to follow up commands, same reason holding up ETHEL, some reason holding MRI. Vanc is at appropriate level but no ID consult available. Continues to have MRSA bacteremia, we will repeat culture.. 10/10: Patient is still remaining agitated, encephalopathic. Now having low- grade fevers. Start rectal Tylenol, psych has seen yesterday recommending ODT Zyprexa, we will do IM Haldol 5 mg q.6 scheduled, use Ativan 2 mg q.2h for breakthrough agitation. With continued positive blood culture despite therapeutic vanc levels, no ID consult, we will add 2nd MRSA coverage linezolid. Maintain sitter bedside. - later in PM, patient nonresponsive, abg with hyperventilation, cxr unconcerning (no septic nodules...), also having higher temps. despite no ativan/haldol, patient was nonresponsive, concern for airway protection, pt is intubated and R IJ cvc inserted. repeat CT with continued L mca stroke. started asa plavix. continue zyvox, vancomycin, ctx/flagyl. on sunday, will reassess ethel / LP, ID consult still pending. neuro following. family updated. pulm for vent managment. 10/11-10/12 - weekend coverage. developed vanc JAYLEEN , now nephrology onboard. changed vanc to dapto. 10/13: jayleen continues, anuric, nephrology following. still pending ID consult. cards aware for ETHEL. neurology to follow and need clearance from MRI brain and MRI pelvis today (there is no sign of metal in oral cavity, defer to mri team eval), neurology to clear for LP, radiology aware. abx dapto/linezolid/ctx2g , will stop flagyl for now. continue vent, continue vasopressor MAP>60. sources SBE vs R toe osteo? vs prostatic abscess? vs maxillofacial?, will likely need podiatry eval and maxilloffoacial CT w con, holding off right now. Diagnosis : Acute toxic metabolic encephalopathy, likely sepsis vs cva vs psychiatric condition mechanical ventilation for airway protection, due to above Sepsis, unspecified organism SBE, possible, rule out R toe wound history prostatic abscess poor dentition vancomycin nephropathy Recurrent MRSA bacteremia Psychiatric illness, bipolar likely CVA, left MCA territory, likely embolic Meningitis? Possible, HSV encephalitis possible?, unable to rule out Febrile episodes Hypoalbuminemia Diabetes with hyperglycemia Ketosis, possible early DKA Hyponatremia Abdominal abscess Methamphetamine abuse Plan: Vancomycin Ceftriaxone 2 g Pain control PRN Neurology consult for ALOC ID consult recurrent MRSA bacteremia Cardiology consult for ETHEL Metronidazole IV Stop cefepime NPO due to altered mental status Telemetry Full code Plan discussed with: Other Date of Service: Oct 13, 2024 Billing Provider: MARGAUX MCCORMACK MD Common Visit Codes: [id number] CARE 30-74 MIN MARGAUX MCCORMACK MD Oct 13, 2024 10:59
--- NOTE | 2024-10-13 11:48 | DVH ---
US BiLat Lower DVT HISTORY: Edema COMPARISON: US BILAT LOWER DVT on DOS: 05/10/23, CT LEFT LOWER EXTREMITY W/O CON on DOS: 05/10/23, RT LOW ER DVT on DOS: 04/30/21 TECHNIQUE: Duplex doppler evaluation of the deep venous system of the lower extremity from the common femoral veins, superficial femoral vein, great saphenous vein, deep femoral vein, popliteal vein, an d calf veins, including color doppler and spectral/pulsed waveform analysis, was performed. FINDINGS: Right: - Common femoral vein: Compressible - Deep femoral vein: Compressible - Femoral vein: Compressible - Popliteal vein: Compressible - Posterior tibial vein: Waveforms present - Other: Nothing Left: - Common femoral vein: Compressible - Deep femoral vein: Compressible - Femoral vein: Compressible - Popliteal vein: Compressible - Posterior tibial vein: Waveforms present - Other: Nothing IMPRESSION: No right or left lower extremity deep venous thrombosis.
--- NOTE | 2024-10-13 11:48 | DVH ---
RIGHT Upper Extremity Venous Duplex Clinical History: SWELLING Comparison: US BILAT LOWER DVT on DOS: 05/10/23, RT LOWER DVT on DOS: 04/30/21, RLDVT on DOS: 04/30/21 Findings: Duplex Doppler evaluation of the venous system of the RIGHT lower neck and upper extremity including color Doppler and spectral/pulsed waveform analysis was performed. The internal jugular vein demonstrates appropriate compressibility and waveform variability. The subclavian vein is patent on color Doppler evaluation without intraluminal thrombus and demonstra fide waveform variability. The visualized portion of the brachiocephalic vein is patent on color Doppler evaluation without intr aluminal thrombus and demonstrates waveform variability. The axillary vein demonstrates appropriate compressibility and waveform variability. The brachial veins demonstrate appropriate compressibility and patency on Doppler evaluation. The basilic vein demonstrates appropriate compressibility and patency on Doppler evaluation. Thrombus in the cephalic vein. Impression: Thrombus in the cephalic vein. If clinical concern/symptoms persist or worsen, short-interval follow-up study is suggested.
[2024-10-13] MEDS: SODIUM CHLORIDE 0.9% 500 ML IV ONE (13:24)
[2024-10-13] MEDS: BUMETANIDE INJECTION 12.5 MG in GIVE UN-DILUTED 0 ML IV SCH (13:25)
[2024-10-13] MEDS: MAGNESIUM SULFATE 1GM/100ML 100 ML IV ONE (15:46)
--- NOTE | 2024-10-13 17:28 | DVHCONRES ---
Date Seen: Oct 13, 2024 Resident Creating Document: ADAM MARTINO RESIDENT Referring Physician Dr. Corbin Reason for Consultation ''Sepsis, pelvis abscess, recur MRSA bacteremia, TIM need but ALOC'' History of Present Illness Mr. Velazquez is a 39 years old gentleman with a history of diabetes, GERD, bipolar disorder, schizophrenia, chronic diabetic ulcer, he was brought to the [facility] on 10/02/2024 man presented to the emergency department with generalized weakness, fever, and abdominal discomfort, later requiring endotracheal intubation (FiO? 30%), low-dose vasopressor support, and chemical sedation. He was diagnosed with sepsis and persistent bacteremia, prompting cardiology evaluation for possible subacute endocarditis via transesophageal echocardiogram. ECG showed sinus tachycardia at 133 bpm, and inflammatory markers (ESR, CRP) were elevated. His medical history includes insulin-dependent diabetes mellitus, dyslipidemia, MRSA urinary infection, benign prostatic hyperplasia, and methamphetamine abuse; surgical history includes prostate surgery. Family history is notable for diabetes mellitus, and urine drug screen was positive for methamphetamines. Negative for treponema pallidum antibody, HIV, Hep B & Hep c negative ,UA positive for possible UTI, persistent MRSA bacteremia last 10/09 Blood culture, 10/02/2024: MRSA Blood culture, 10/03/2024: MRSA Blood culture, 10/04/2024: MRSA UDS, 10/03/2024: Ms. Ocampo, 09/3124: Negative Urinalysis, 10/02/2024: WBC: 30, urine leukocyte esterase: Trace Past Medical History Diabetes mellitus, GERD, schizophrenia, bipolar disorder, right toe chronic ulcer, dyslipidemia, MRSA of urine, benign prostatic hyperplasia, and methamphetamine abuse. Past Surgical History Prostate surgery. Family History: Family history: Diabetes mellitus GRANDMOTHER (UNK) Family History Reviewed, noncontributory to the management of this case. Social History The patient lives at home, denies smoking, alcohol or illicit drugs abuse. Although UDS positive. Allergies: Coded Allergies: No Known Drug Allergy (Unverified Allergy, Unknown, 10/03/24) Home Meds Reported Medications Semaglutide (Ozempic) 8 Mg/3 Ml Inj, 2 MG SC QWEEKLY for 28 Days, #3 10/03/24 Insulin Glargine (Lantus Solostar) 100 Unit/Ml Inj, 20 UNIT SC QPM for 75 Days, #15 10/03/24 Empagliflozin (Jardiance) 25 Mg Tab, 1 TAB PO DAILY for 90 Days, #90 08/24/24 Metformin Hydrochloride (Metformin Hcl) 1,000 Mg Tab, 1 TAB PO BID for 90 Days, #180 08/24/24 Atorvastatin Calcium (Lipitor) 10 Mg Tab, 1 TAB PO QPM for 90 Days, #90 05/10/23 Current Medications Current Medications Medications (Trade) Dose Ordered Sig/Dion Route PRN Reason Start Time Stop Time Status Last Admin Albumin Human 50 ml @ 100 mls/hr Q8H IV 10/13/24 09:15 10/14/24 01:44 10/13/24 09:15 Bumetanide 12.5 mg/Miscellaneous 50 ml @ 2 mls/hr Q24H IV 10/13/24 09:15 10/13/24 13:25 Dextrose 1,000 ml @ 100 mls/hr Q10H IV 10/13/24 13:00 Review of Systems Constitutional: Yes: Fever, Weakness; No: Chills, Sweats, Malaise, Other Eyes: No: Pain, Vision change, Conjunctivae inflammation, Eyelid inflammation, Other, Redness ENT: No: Ear pain, Ear discharge, Nose pain, Nose discharge, Nose congestion, Mouth pain, Mouth swelling, Throat pain, Throat swelling, Other Respiratory: No: Cough, Dry, Shortness of breath, SOB with excertion, Wheezing, Hemoptysis, Pleuritic Pain, Sputum, Wheezing, Other Cardiovascular: No: Chest Pain, Palpitations, Orthopnea, Paroxysmal Noc. Dyspnea, Edema, Lt Headedness, Other Gastrointestinal: Abdominal Pain; No: Nausea, Vomiting, Diarrhea, Constipation, Melena, Hematochezia, Other Genitourinary: No Dysuria, No Frequency, No Incontinence, No Hematuria, No Retention; Other (Kan catheter in place) Musculoskeletal: No: other, neck pain, shoulder pain, arm pain, back pain, hand pain, leg pain, foot pain Skin: No: Rash, Lesions, Jaundice, Bruising, Other Neurological: No: Weakness, Numbness, Incoordination, Change in speech, Confusion, Seizures, Other Vital Signs Vital Signs Date Time Temp Pulse Resp B/P (MAP) Pulse Ox O2 Delivery O2 Flow Rate FiO2 10/13/24 16:00 92 10/13/24 16:00 97.3 21 103/69 (80) 100 97.3 10/13/24 16:00 Mechanical Ventilator+ 30 30 10/13/24 08:00 0 Physical Exam GEN: A&O times 1 HEENT: NC/AT; MMM. CV: RRR, regular rhythm LUNGS: CTAB, no w/r/c. ABD: Soft, NT/ND, NBS, no masses or organomegaly. EXT: skin Warm, well perfused. no rashes. No clubbing, cyanosis, or edema. Right toe wrapped in gauze, chronic ulcer, checked the wounds in the sacrum and the toe unremarkable. NEURO: Ambulating with no limitations. No focal deficits. Labs/Diagnostic Data Labs Test 10/13/24 07:26 10/13/24 03:16 10/12/24 14:00 10/12/24 03:39 Range/Units Blood Gas Specimen Type Arterial Blood Gas Sample Site Right radial Blood Gas Patient Temperature 37.0 Arterial Blood Date Drawn [id number] Arterial Blood pH 7.393 7.350-7.450 Arterial Blood Partial Pressure CO2 33.9 L 35.0-48.0 mmHg Arterial Blood Partial Pressure O2 62.4 L 83.0-108.0 mmHg Arterial Blood HCO3 20.2 L 21.0-28.0 mmol/L Arterial Blood Oxygen Saturation 91.6 L 94.0-98.0 % Arterial Blood Base Excess -4.3 L -2.0-3.0 mmol/L Arterial Blood Oxyhemoglobin 90.2 L 94.0-98.0 % Arterial Blood Carboxyhemoglobin 1.2 0.5-1.5 % Arterial Blood Methemoglobin 0.3 0.0-1.5 % Simone Test Modified Blood Gas Total Hemoglobin 6.30 *L 13.5-17.5 g/dL Blood Gas Set Respiration Rate 20.0 Blood Gas Modality Vent - ac FiO2 % 30.0 Blood Gas Tidal Volume 500.0 Blood Gas PEEP or CPAP 5.0 Blood Gas Critical Value Read Back yes Blood Gas Notified Whom zuleyka danielson md Blood Gas Notified Time [id number] Blood Gas Notified By dino zhang rrt White Blood Count 6.0 4.4-10.8 10^3/uL Red Blood Count 2.67 L 4.5-5.90 10^6/uL Hemoglobin 7.4 L 13.5-17.5 g/dL Hematocrit 22.6 L 41.0-53.0 % Mean Corpuscular Volume 84.5 80.0-100.0 fL Mean Corpuscular Hemoglobin 27.6 L 28.0-32.0 pg Mean Corpuscular Hemoglobin Concent 32.6 32.0-36.0 g/dL Red Cell Distribution Width 17.1 H 11.8-14.3 % Platelet Count 146 140-450 10^3/uL Mean Platelet Volume 7.6 6.9-10.8 fL Neutrophils (%) (Auto) 77.7 37.0-80.0 % Lymphocytes (%) (Auto) 15.8 10.0-50.0 % Monocytes (%) (Auto) 5.1 0.0-12.0 % Eosinophils (%) (Auto) 0.9 0.0-7.0 % Basophils (%) (Auto) 0.5 0.0-2.0 % Neutrophils # (Auto) 4.7 1.6-8.6 10 ^3/uL Lymphocytes # (Auto) 0.9 0.4-5.4 10 ^3/uL Monocytes # (Auto) 0.3 0-1.3 10 ^3/uL Eosinophils # (Auto) 0.1 0-0.8 10 ^3/uL Basophils # (Auto) 0 0-0.2 10 ^3/uL Nucleated Red Blood Cells 0.0 % Sodium Level 147 H 136-145 mmol/L Potassium Level 4.1 3.5-5.1 mmol/L Chloride Level 115 H 98-107 mmol/L Carbon Dioxide Level 22 20-31 mmol/L Anion Gap 10 5-15 Blood Urea Nitrogen 41 H 9-23 mg/dL Creatinine 2.58 H 0.700-1.30 mg/dL Glomerular Filtration Rate Calc 31 >90 mL/min BUN/Creatinine Ratio 15.9 10.0-20.0 Serum Glucose 137 H 74-106 mg/dL Calcium Level 7.0 L 8.7-10.4 mg/dL Phosphorus Level 5.5 H 2.4-5.1 mg/dL Magnesium Level 1.6 1.6-2.6 mg/dL Total Bilirubin < 0.2 L 0.2-1.0 mg/dL Aspartate Amino Transferase (AST) 12 L 13-40 U/L Alanine Aminotransferase (ALT) 9 7-40 U/L Alkaline Phosphatase 78 46-116 U/L Total Protein 6.1 5.7-8.2 g/dL Albumin 2.1 L 3.2-4.8 g/dL Test 10/11/24 22:17 10/11/24 21:31 10/10/24 05:07 10/07/24 13:01 Range/Units Vancomycin Level Trough 38.2 *H 5-10 ug/mL B-Type Natriuretic Peptide 102.53 0-100 pg/mL Random Vancomycin Level 15.2 H 5-10 ug/mL HIV (1&2) Antibody Negative Negative Test 10/07/24 09:00 10/05/24 18:40 10/05/24 15:02 10/05/24 11:48 Range/Units Erythrocyte Sedimentation Rate 102 H 0-20 mm/hr C-Reactive Protein High Sensitivity 19.31 H <1.0 mg/dL Triglycerides Level 153 H < 150 mg/dL Cholesterol Level 87 < 200 mg/dL LDL Cholesterol 39 < 100 mg/dL HDL Cholesterol 9 L 40-59 mg/dL Treponema pallidum Antibody Non-reactive Negative Differential Total Cells Counted 100.0 100 Neutrophils % (Manual) 73 37.0-80.0 Band Neutrophils % (Manual) 5 Lymphocytes % (Manual) 13 10.0-50.0 Monocytes % (Manual) 8 0-12 Eosinophils % (Manual) 0 0-7 Basophils % (Manual) 0 0.0-2.0 Metamyelocytes % (manual) 0 Myelocytes % (Manual) 0 Promyelocytes % (Manual) 0 Blast Cells % (Manual) 0 Reactive Lymphocytes 1 Platelet Estimate Decreased Ammonia < 10 L 11-32 umol/L Urine Opiates Screen Neg NEGATIVE Urine Fentanyl Screen Neg NEGATIVE Urine Barbiturates Screen Neg NEGATIVE Urine Phencyclidine Screen Neg NEGATIVE Urine Amphetamines Screen Neg NEGATIVE Urine Benzodiazepines Screen Neg NEGATIVE Urine Cocaine Screen Neg NEGATIVE Urine Cannabinoids Screen Neg NEGATIVE POC Glucose 226 H 70-106 mg/dl Test 10/05/24 02:47 10/03/24 04:25 10/02/24 21:24 10/02/24 03:01 Range/Units Anisocytosis (manual) Slight Thyroid Stimulating Hormone (TSH) 1.36 0.55-4.78 uIU/mL Hepatitis B Surface Antigen Negative Negative Hepatitis C Antibody Negative Negative Prothrombin Time 12.3 H 9.3-11.8 sec Prothrombin Time INR 1.18 H 0.9-1.15 Activated Partial Thromboplast Time 34.4 24.5-34.5 SEC Lactic Acid Level 1.3 0.4-2.0 mmol/L Urine Color Colorless Yellow Urine Clarity Clear Clear Urine pH 5.0 5.0-9.0 Urine Specific Dalhart 1.020 1.001-1.035 Urine Protein Negative Negative Urine Ketones 1+ H Negative Urine Blood Trace H Negative /uL Urine Nitrite Negative Negative Urine Bilirubin Negative Negative Urine Urobilinogen Normal Negative mg/dL Urine Leukocyte Esterase Trace Negative /uL Urine RBC 1 0 - 3 /hpf Urine Microscopic WBC 13 H 0-3 /HPF Urine Squamous Epithelial Cells None seen <5 /hpf Urine Bacteria None seen None Seen /hpf Urine Glucose 4+ H Normal mg/dL Microbiology Date/Time Source Procedure Growth Status 10/11/24 21:30 Blood Blood Culture - Preliminary NO GROWTH AFTER 24 HOURS OF INCUBATION. Resulted 10/10/24 16:45 Sputum Expectorated Sputum Gram Stain - Final Complete 10/10/24 16:45 Sputum Expectorated Sputum Respiratory Culture - Final Complete 10/03/24 00:00 Toe Gram Stain - Final Complete 10/03/24 00:00 Wound Culture - Final Methicillin Resistant S.aureus Enterococcus faecalis Complete Assessment Assessment: #Persistent bacteremia rule out subacute endocarditis pending TIM #Recurrent MRSA bacteremia #CVA, left MCA territory, rule out cardioembolic source #Cephalic vein thrombus; ? infectious thromboembolism #Jyn-flwgnro-rgfbgjyep diabetes mellitus #Methamphetamine abuse, unknown status of IV drug abuse #Mild aortic root enlargement. Mild TR, No pericardial effusion masses or vegetations noted on TTE #Meningitis? Possible, HSV encephalitis possible?, unable to rule out vs thromboembolic stroke #Abdomino-pelvic abscess: Evidence of left sacroiliitis with gas and fluid extending into left pelvic muscles likely representing abscess #UTI due to possible hematogenous seeding of bacteremia #MRSA Aspiration Pneumonia, Trace bilateral pleural effusions with adjacent atelectasis and patchy posterior bibasilar pulmonary infiltrate with MRSA Plan: #Continue Daptomycin with Ceftaroline for appropriate coverage intracerebral and extracerebral bacteremia. #check baseline CK follow up labs, weekly CK. #Daily 12 lead EKG to look for [place] prolongation >200 ms for higher risk of intracardiac abscess, an absolute surgical emergency. #Follow up blood culture in 48 hours. #LP with CSF profile when possible with EEG #TIM when possible with Cardiology to rule out vegetations. #Continue ICU level care with close follow up by Primary Team. Discussed with Dr. Solano. Thank you for the opportunity to consult on your patient. Infectious disease team will follow up. Plan discussed with: Patient ADAM MARTINO RESIDENT Oct 13, 2024 17:28
[2024-10-13] MEDS: D5W 5% 1,000 ML IV SCH (18:59)
[2024-10-13] MEDS: CEFTAROLINE IV SCH (22:41)
[2024-10-13] MEDS: SODIUM CHL 0.9% IV SCH (22:41)
[2024-10-14] VITALS (109 sets, daily range): BP systolic 97–147; BP diastolic 59–88; PULSE 81–99; RESP 11–25; TEMP 97–98; O2SAT 98–100
--- NOTE | 2024-10-14 00:16 | DVHEEG2 ---
Neurology EEG Procedural Note Procedural Note EXAM DATE: 10/12/2024 REFERRING DOCTOR: Dr. Payne TECHNIQUE: Eighteen channels of EEG, 2 channels of EOG, and 1 channel of EKG were recorded using the International 10/20 system. CLINICAL DATA: The patient was referred for an EEG evaluation for the evidence of seizure disorder. MEDICATIONS: See the chart BACKGROUND ACTIVITY: This record showed diffuse low amplitude mostly theta activity over both hemisphere that was reactive to external stimuli ACTIVATION: Hyperventilation: Not done Photic Stimulation: Not done Sleep: Nonresponsiveness IMPRESSION: This is a remarkably abnormal EEG, this EEG is seen in severe cerebral dysfunction due to metabolic/hypoxic encephalopathy or medication effects, please correlate clinically. The EKG channel showed a regular heart rate of 90/min[place] [address] CALEB PAYNE MD Oct 14, 2024 00:16
[2024-10-14 04:09] LABS: Hematocrit 21.1 % (41.0-53.0); Mean Corpuscular Hemoglobin 27.2 pg (28.0-32.0); Nucleated Red Blood Cells % 0.1 %
[2024-10-14 04:13] LABS: Mean Corpuscular Volume 84.8 fL (80.0-100.0)
[2024-10-14 04:19] LABS: Hemoglobin 6.8 g/dL (13.5-17.5)
[2024-10-14 04:24] LABS: Potassium 4.0 mmol/L (3.5-5.1); Sodium 143 mmol/L (136-145)
[2024-10-14 04:25] LABS: Anion Gap 8 (5-15); Carbon Dioxide 20 mmol/L (20-31)
[2024-10-14 04:30] LABS: BUN/Creatinine Ratio 16.2 (10.0-20.0)
[2024-10-14 04:43] LABS: Blood Urea Nitrogen 43 mg/dL (9-23); Calcium 7.0 mg/dL (8.7-10.4); Chloride 115 mmol/L (98-107); Glucose 136 mg/dL (74-106)
--- NOTE | 2024-10-14 05:19 | DVH ---
CHEST RADIOGRAPH Indication: ET Tube And Line Placement Confirmation Technique: Single frontal view of the chest was obtained COMPARISON: XY CHEST PORTABLE on DOS: 10/13/24, XY CHEST PORTABLE on DOS: 10/12/24, XY CHEST PORTABLE on DOS: 10/11/24, XY CHEST PORTABLE on DOS: 10/10/24, XY CHEST PORTABLE on DOS: 10/10/24 FINDINGS: Lines and Tubes: Unchanged. Lungs: Clear Pleura: No effusion. No pneumothorax. Cardiomediastinal contours: Unremarkable Bones: Unremarkable IMPRESSION: 1. No acute cardiopulmonary disease. 2. Lines and tubes unchanged.
[2024-10-14 05:20] LABS: Hematocrit 22.5 % (41.0-53.0); Hemoglobin 7.2 g/dL (13.5-17.5); Mean Corpuscular Hemoglobin 27.2 pg (28.0-32.0); Mean Corpuscular Volume 84.7 fL (80.0-100.0); Nucleated Red Blood Cells % 0.0 %
[2024-10-14 08:17] LABS: Base Excess -7.1 mmol/L (-2.0-3.0)
--- NOTE | 2024-10-14 08:56 | DVHPNRES ---
Progress Note Date Seen: Oct 14, 2024 Resident Creating Document: ADAM MARTINO RESIDENT Medical Necessity Reason Pt with a Central, PICC or Fol: No Objective vital signs Vital Sign Date Time Temp Pulse Resp B/P (MAP) Pulse Ox O2 Delivery O2 Flow Rate FiO2 10/14/24 07:54 89 22 122/83 (96) 100 30 10/14/24 06:00 Mechanical Ventilator+ 10/14/24 04:00 98.0 98.0 10/13/24 20:00 0 Total Intake and Output 10/13/24 10/13/24 10/14/24 15:00 23:00 07:00 Intake Total 892.00 ml 1084.00 ml 1174.00 ml Output Total 75 ml 125 ml Balance 892.00 ml 1009.00 ml 1049.00 ml medications Current Medications Medications Dose Ordered Sig/Dion Route Start Time Stop Time Status Last Admin Dose Admin Enoxaparin Sodium 40 mg DAILY SC 10/07/24 10:00 10/13/24 10:44 40 MG Acetaminophen 650 mg Q6HP PRN LA 10/10/24 10:00 10/10/24 15:18 650 MG Midazolam HCl 50 ml @ 1 mls/hr Q24H IV 10/10/24 17:15 10/14/24 05:23 6 MLS/HR Fentanyl Citrate 250 ml @ 2.5 mls/hr Q24H IV 10/10/24 17:15 10/13/24 20:46 20 MLS/HR Propofol 100 ml @ 2.496 mls/ hr Q24H IV 10/10/24 17:15 Norepinephrine Bitartrate 250 ml @ 3.75 mls/hr Q24H IV 10/10/24 17:45 10/13/24 06:36 3.75 MLS/HR Diagnostic Test (Pha) 1 strip Q6HR 10/11/24 00:00 10/14/24 05:22 1 STRIP Insulin Human Regular FOLLOW SLIDING SCALE Q6HR SC 10/11/24 00:00 10/14/24 05:28 2 UNITS Dextrose 50 ml UD IV 10/10/24 22:00 Amino Acids 0 ml @ 0 mls/hr PER PHARMACY IV 10/10/24 19:00 UNV Aspirin 81 mg DAILY PO 10/11/24 10:00 10/13/24 10:45 81 MG Clopidogrel Bisulfate 75 mg DAILY PO 10/11/24 10:00 10/13/24 10:45 75 MG Enteral Nutritional Formula 1,000 ml 40ML/HR GT 10/10/24 21:15 10/13/24 22:43 1,000 ML Bumetanide 12.5 mg/Miscellaneous 50 ml @ 2 mls/hr Q24H IV 10/13/24 09:15 10/13/24 13:25 2 MLS/HR Dextrose 1,000 ml @ 100 mls/hr Q10H IV 10/13/24 13:00 10/13/24 23:26 100 MLS/HR Ceftaroline Fosamil 400 mg/ Sodium Chloride 250 ml @ 250 mls/hr Q12HR IV 10/13/24 22:00 10/13/24 22:41 250 MLS/HR Daptomycin 750 mg/ Sodium Chloride 50 ml @ 100 mls/hr DAILY IV 10/14/24 10:00 Pantoprazole Sodium 40 mg DAILY IV 10/14/24 10:00 UNV laboratory and microbiology Laboratory Tests 10/14/24 05:04 10/14/24 03:32 Test 10/14/24 03:32 Range/Units Serum Glucose 136 H 74-106 mg/dL Microbiology Date/Time Source Procedure Growth Status 10/11/24 21:30 Blood Blood Culture - Preliminary NO GROWTH AFTER 48 HOURS OF INCUBATION. Resulted 10/10/24 16:45 Sputum Expectorated Sputum Gram Stain - Final Complete 10/10/24 16:45 Sputum Expectorated Sputum Respiratory Culture - Final Complete 10/03/24 00:00 Toe Gram Stain - Final Complete 10/03/24 00:00 Wound Culture - Final Methicillin Resistant S.aureus Enterococcus faecalis Complete My Orders My Orders Orders - ADAM MARITNO RESIDENT Procedure Category Date Status Time Ceftaroline (Teflaro) PHA 10/13/24 In Process 22:00 Electrocardigram EKG 10/14/24 Logged 05:00 Electrocardigram EKG 10/15/24 Logged 05:00 Electrocardigram EKG 10/16/24 Logged 05:00 Electrocardigram EKG 10/17/24 Logged 05:00 Electrocardigram EKG 10/18/24 Logged 05:00 Electrocardigram EKG 10/19/24 Logged 05:00 Electrocardigram EKG 10/20/24 Logged 05:00 Electrocardigram EKG 10/21/24 Logged 05:00 Electrocardigram EKG 10/22/24 Logged 05:00 Electrocardigram EKG 10/23/24 Logged 05:00 Daptomycin (Cubicin) PHA 10/14/24 In Process 10:00 Dietary Evaluation Review Comments: 1) Add cardiac restriction to 60g CCHO diet 2) Initiate Glucerna qd. Encourage optimal PO intake 3) Follow-up with urology and surgery 4) Follow-up with social services designee r/t methamphetamine abuse 5) Continue to monitor I&O, labs, and skin integrity Expected Outcomes/Goals: 1) appetite and labs to improve 2) wound to improve 3) f/u in 3-5 days ADAM MARTINO RESIDENT Oct 14, 2024 08:56
--- NOTE | 2024-10-14 09:59 | DVHPN2 ---
Progress Note Date Seen: Oct 14, 2024 Medical Necessity Reason Pt with a Central, PICC or Fol: No Subjective Review of Systems: RESPIRATORY:Abnormal Other Systems: Patient seen and examined by myself today in follow-up, patient remained intubated on ventilator Objective vital signs Vital Sign Date Time Temp Pulse Resp B/P (MAP) Pulse Ox O2 Delivery O2 Flow Rate FiO2 10/14/24 09:47 93 22 117/73 (88) 100 30 10/14/24 06:00 Mechanical Ventilator+ 10/14/24 04:00 98.0 98.0 10/13/24 20:00 0 Total Intake and Output 10/13/24 10/13/24 10/14/24 15:00 23:00 07:00 Intake Total 892.00 ml 1084.00 ml 1174.00 ml Output Total 75 ml 125 ml Balance 892.00 ml 1009.00 ml 1049.00 ml medications Current Medications Medications Dose Ordered Sig/Dion Route Start Time Stop Time Status Last Admin Dose Admin Enoxaparin Sodium 40 mg DAILY SC 10/07/24 10:00 10/13/24 10:44 40 MG Acetaminophen 650 mg Q6HP PRN OR 10/10/24 10:00 10/10/24 15:18 650 MG Midazolam HCl 50 ml @ 1 mls/hr Q24H IV 10/10/24 17:15 10/14/24 05:23 6 MLS/HR Fentanyl Citrate 250 ml @ 2.5 mls/hr Q24H IV 10/10/24 17:15 10/13/24 20:46 20 MLS/HR Propofol 100 ml @ 2.496 mls/ hr Q24H IV 10/10/24 17:15 Norepinephrine Bitartrate 250 ml @ 3.75 mls/hr Q24H IV 10/10/24 17:45 10/13/24 06:36 3.75 MLS/HR Diagnostic Test (Pha) 1 strip Q6HR 10/11/24 00:00 10/14/24 05:22 1 STRIP Insulin Human Regular FOLLOW SLIDING SCALE Q6HR SC 10/11/24 00:00 10/14/24 05:28 2 UNITS Dextrose 50 ml UD IV 10/10/24 22:00 Amino Acids 0 ml @ 0 mls/hr PER PHARMACY IV 10/10/24 19:00 UNV Aspirin 81 mg DAILY PO 10/11/24 10:00 10/13/24 10:45 81 MG Clopidogrel Bisulfate 75 mg DAILY PO 10/11/24 10:00 10/13/24 10:45 75 MG Enteral Nutritional Formula 1,000 ml 40ML/HR GT 10/10/24 21:15 10/13/24 22:43 1,000 ML Bumetanide 12.5 mg/Miscellaneous 50 ml @ 2 mls/hr Q24H IV 10/13/24 09:15 10/13/24 13:25 2 MLS/HR Dextrose 1,000 ml @ 100 mls/hr Q10H IV 10/13/24 13:00 10/13/24 23:26 100 MLS/HR Ceftaroline Fosamil 400 mg/ Sodium Chloride 250 ml @ 250 mls/hr Q12HR IV 10/13/24 22:00 10/13/24 22:41 250 MLS/HR Daptomycin 750 mg/ Sodium Chloride 50 ml @ 100 mls/hr DAILY IV 10/14/24 10:00 Pantoprazole Sodium 40 mg DAILY IV 10/14/24 10:00 UNV Examination: LUNGS:Normal, CVS:Normal, MSK:Normal laboratory and microbiology Laboratory Tests 10/14/24 05:04 10/14/24 03:32 Test 10/14/24 03:32 Range/Units Serum Glucose 136 H 74-106 mg/dL Microbiology Date/Time Source Procedure Growth Status 10/11/24 21:30 Blood Blood Culture - Preliminary NO GROWTH AFTER 48 HOURS OF INCUBATION. Resulted 10/10/24 16:45 Sputum Expectorated Sputum Gram Stain - Final Complete 10/10/24 16:45 Sputum Expectorated Sputum Respiratory Culture - Final Complete 10/03/24 00:00 Toe Gram Stain - Final Complete 10/03/24 00:00 Wound Culture - Final Methicillin Resistant S.aureus Enterococcus faecalis Complete Problem List/Assessment/Plan Problem List/Assessment/Plan Acute kidney injury multifactorial hemodynamically mediated Acute respiratory failure, patient intubated on ventilator Vancomycin nephrotoxicity Septic shock Acute CVA MRSA bacteremia Lower extremity MRSA wound infection BPH status post TURP with indwelling Kan catheter d History of methamphetamine abuse Hypoalbuminemia Hypernatremia due to insensible water loss Recommendations Kidney function slightly worsened today Decreased urine output Change IVF to 1/2 NS at 100 cc/hr Kan catheter Strict I&Os Discontinue vancomycin Check urine electrolytes and protein excretion Albumin 25% IV piggyback Bumex IV 0.5 milligram/hour to increased urine output IV pressors for blood pressure support We will continue to follow up Plan discussed with: Other (Nurse) My Orders My Orders Orders - NATHALIA JOSEPH MD Procedure Category Date Status Time D5w 5% (Dextrose 5%) PHA 10/13/24 In Process 13:00 Urine Sodium LAB 10/14/24 Verified 09:53 Urine LAB 10/14/24 Verified Protein/Creatinine Urine Creatinine LAB 10/14/24 Verified 09:53 Urinalysis LAB 10/14/24 Verified 09:53 Dietary Evaluation Review Comments: 1) Add cardiac restriction to 60g CCHO diet 2) Initiate Glucerna qd. Encourage optimal PO intake 3) Follow-up with urology and surgery 4) Follow-up with social media designer r/t methamphetamine abuse 5) Continue to monitor I&O, labs, and skin integrity Expected Outcomes/Goals: 1) appetite and labs to improve 2) wound to improve 3) f/u in 3-5 days NATHALIA JOSEPH MD Oct 14, 2024 09:59
[2024-10-14] MEDS: DAPTOmycin 750 MG in SODIUM CHL 0.9% 50 ML IV SCH (10:00)
[2024-10-14] MEDS: PANTOPRAZOLE 40 MG/10 ML VIAL INJ IV SCH (10:26)
--- NOTE | 2024-10-14 10:34 | DVHPN2 ---
Progress Note - Dictate Date Seen: Oct 14, 2024 Medical Necessity Reason Pt with a Central, PICC or Fol: No Subjective Mr. Velazquez is a 39 years old gentleman with a history of diabetes, GERD, bipolar disorder, schizophrenia, chronic diabetic ulcer, he was brought to the [facility] on 10/02/2024 with a chief company of fever, the patient is also noticed to have altered mental status, in the CT brain scan showed evidence suggestive of left MCA territory acute stroke. Because of fever, worsening mental status, that is was intubated and transferred to ICU on 10/10/24 I have seen and examined the patient, talked to his nurse, intubated, sedated, responsive to stroke painful stimuli, I have discussed with MRI center, his NG tube may cause significant MRI artifacts, he is not ready for MR scan yet Infectious disease input appreciated, okay to have lumbar puncture from neurologic point of view Levo 2 mcg/minute, Versed 6 mg/hour, fentanyl 200 mcg/hour Blood culture, 10/02/2024: MRSA Blood culture, 10/03/2024: MRSA Blood culture, 10/04/2024: MRSA UDS, 10/03/2024: MsAbad Ocampo, 09/3124: Negative Urinalysis, 10/02/2024: WBC: 30, urine leukocyte esterase: Trace WBC/HB/PLT/MCV, 10/06/2024: 5/8.7/130/82.4, 10/10/2024: 6.5/8.1/211/84.5, , 10/11/2024: 6.1/7.5/176/85.9 PTT/INR/eight six, 10/02/2024: 12.3/1.18/34.4 Na, 10/07/2024: 144 10/10/2024: 151, 10/11/2024: 148 CMP, 10/05/2024: Unremarkable BUN/CR, 10/10/2024: 22/0.96, 10/11/2024: 32/1.94 GFR, 10/10/2024: 102, 10/11/2024: 44 Liver function tests, 10/11/2024: Unremarkable HGB A1c, 05/10/2023: >14 TG/HDL/LDL/HDL, 10/07/2024: 153/87/39/9 Echocardiogram, 10/06/2024: Technically good study. Off axis views. Limited views obtained. There appears to be biatrial enlargement and LV enlargement. Mild aortic root enlargement. Valves appear to be structurally normal. Left ventricular function is borderline at 45 to 50% anteroseptal hypokinesis.. Normal RV function. Mild TR. No pericardial effusion masses or vegetations. CT head, 10/05/2024: Acute left MCA territory infarct in left insula/temporal operculum/temporal lobe. No hemorrhage or mass effect Sedated, 10/09/2024: 1. Interval progression in evolution of left middle cerebral artery territory infarct involving the insula / temporal are operculum/ temporal lobe with associated loss of khoury-white matter differentiation and progressively diminished parenchymal attenuation. 2. No evidence of intracranial hemorrhage, mass effect, midline shift or herniation. 3. Chronic sequelae of microangiopathy and atrophic cortical volume loss. CT abdomen/pelvis, 10/06/2024: 1. Trace bilateral pleural effusions with adjacent atelectasis and patchy posterior bibasilar pulmonary infiltrate. 2. Hepatomegaly. 3. Excess retained colorectal stool and moderate proximal mechanical small-bowel obstruction. 4. Moderate gas and Kan catheter within the urinary bladder CTA head, neck, 10/05/2024: 1. No evidence of acute intracranial hemorrhage, mass effect or hydrocephalus. 2. No evidence of hemodynamically significant intracranial stenosis, proximal occlusion or aneurysm. 3. No evidence of hemodynamically significant cervical stenosis or dissection vital signs Vital Sign Date Time Temp Pulse Resp B/P (MAP) Pulse Ox O2 Delivery O2 Flow Rate FiO2 10/14/24 10:26 107/68 10/14/24 10:08 97.2 90 20 97.2 10/14/24 09:47 100 30 10/14/24 06:00 Mechanical Ventilator+ 10/13/24 20:00 0 Total Intake and Output 10/13/24 10/13/24 10/14/24 15:00 23:00 07:00 Intake Total 892.00 ml 1084.00 ml 1174.00 ml Output Total 75 ml 125 ml Balance 892.00 ml 1009.00 ml 1049.00 ml medications Current Medications Medications Dose Ordered Sig/Dion Route Start Time Stop Time Status Last Admin Dose Admin Enoxaparin Sodium 40 mg DAILY SC 10/07/24 10:00 10/13/24 10:44 40 MG Acetaminophen 650 mg Q6HP PRN NE 10/10/24 10:00 10/10/24 15:18 650 MG Midazolam HCl 50 ml @ 1 mls/hr Q24H IV 10/10/24 17:15 10/14/24 05:23 6 MLS/HR Fentanyl Citrate 250 ml @ 2.5 mls/hr Q24H IV 10/10/24 17:15 10/13/24 20:46 20 MLS/HR Propofol 100 ml @ 2.496 mls/ hr Q24H IV 10/10/24 17:15 Norepinephrine Bitartrate 250 ml @ 3.75 mls/hr Q24H IV 10/10/24 17:45 10/13/24 06:36 3.75 MLS/HR Diagnostic Test (Pha) 1 strip Q6HR 10/11/24 00:00 10/14/24 05:22 1 STRIP Insulin Human Regular FOLLOW SLIDING SCALE Q6HR SC 10/11/24 00:00 10/14/24 05:28 2 UNITS Dextrose 50 ml UD IV 10/10/24 22:00 Amino Acids 0 ml @ 0 mls/hr PER PHARMACY IV 10/10/24 19:00 UNV Aspirin 81 mg DAILY PO 10/11/24 10:00 10/14/24 10:21 81 MG Clopidogrel Bisulfate 75 mg DAILY PO 10/11/24 10:00 10/14/24 10:21 75 MG Enteral Nutritional Formula 1,000 ml 40ML/HR GT 10/10/24 21:15 10/13/24 22:43 1,000 ML Bumetanide 12.5 mg/Miscellaneous 50 ml @ 2 mls/hr Q24H IV 10/13/24 09:15 10/14/24 10:26 2 MLS/HR Ceftaroline Fosamil 400 mg/ Sodium Chloride 250 ml @ 250 mls/hr Q12HR IV 10/13/24 22:00 10/13/24 22:41 250 MLS/HR Daptomycin 750 mg/ Sodium Chloride 50 ml @ 100 mls/hr DAILY IV 10/14/24 10:00 Pantoprazole Sodium 40 mg DAILY IV 10/14/24 10:00 10/14/24 10:26 40 MG Sodium Chloride 1,000 ml @ 100 mls/hr Q10H IV 10/14/24 10:00 UNV objective General: the patient is well developed and nourished. No acute distress. Intubated MUSCULOSKELETAL EXAM: Chronic ulcer in the right big toe, a small skin lesion in the left big toe MENTAL STATUS: Subjective SPEECH, LANGUAGE, HIGHER CORTICAL FUNCTION: Subjective CRANIAL NERVES: Pupils are equal, round and reactive. There is doll's eye, corneal reflexes. No sign of facial weakness. He has gag reflexes SENSATION: Responsive to stroke painful stimuli MOTOR: Muscle tone feels normal, no spontaneous extremity movement REFLEXES: Deep tendon reflexes feel symmetrical. No pathological reflexes. CEREBELLAR/COORDINATION: Deferred GAIT/STATION: deferred laboratory and microbiology Laboratory Tests 10/14/24 05:04 10/14/24 03:32 Test 10/14/24 03:32 Range/Units Serum Glucose 136 H 74-106 mg/dL Problem List Altered mental status, secondary to Acute stroke Metabolic encephalopathy Rule out intracranial infection Acute respiratory failure Abnormal CT head Acute stroke Rule out encephalitis Prostatic abscess vs hematoma Rule out endocarditis Sepsis with MRSA Chronic diabetic wound History of substance abuse Assessment/Plan Monitoring Supportive treatment ICU care Follow up blood tests LP with CSF profile TIM Will try the MRI again MR head Stabilize vitals Respiratory support/vent management Aspirin 81 mg daily/ASA 300 mg suppository D/C Lipitor 20 mg daily (LDL: 39) IV antibiotics Haldol p.r.n. for agitation Infectious disease on case Need to quit substance abuse Okay to have lumbar puncture from neurologic point of view More recommendation per clinical course This medical document was created using an electronic medical record system with [employer] computerized dictation system. Although this document has been carefully reviewed, there may still be some phonetic and typographical errors. These areas are purely typographical due to imperfections of the software programs, and do not reflect any compromise in the patient's medical care. Prognosis guarded Dietary Evaluation Review Comments: 1) Add cardiac restriction to 60g CCHO diet 2) Initiate Glucerna qd. Encourage optimal PO intake 3) Follow-up with urology and surgery 4) Follow-up with renal social worker r/t methamphetamine abuse 5) Continue to monitor I&O, labs, and skin integrity Expected Outcomes/Goals: 1) appetite and labs to improve 2) wound to improve 3) f/u in 3-5 days Plan discussed with: CALEB Boston MD 9, 2025 10:34
[2024-10-14 11:31] LABS: Urine Budding Yeast LOADED /hpf (None Seen); Urine Protein, UAD 1+ (Negative)
--- NOTE | 2024-10-14 11:58 | DVH ---
Exam: XY KUB ABDOMEN SINGLE VIEW Indication: CONSTIPATION/ABD DISTENTION Comparison: None Technique: 1 radiographic views of the abdomen. Findings: Nonobstructive bowel gas pattern noted. Moderate to large volume colonic stool. There is no definite evidence for pneumoperitoneum. No abnormal calcifications noted. Impression: Nonspecific, nonobstructive bowel gas pattern. No radiographic evidence of pneumoperitoneum. Moderate to large volume colonic stool.
[2024-10-14] MEDS: SOD CHL 0.45% 1,000 ML IV SCH (12:31)
--- NOTE | 2024-10-14 12:39 | DVH ---
BILATERAL Lower Extremity Arterial Duplex Date: 10/14/2024 10:40 AM Clinical History: Rule out PAD Comparison: US RT UPPER DVT on DOS: 10/13/24, US BILAT LOWER DVT on DOS: 10/13/24, US BILAT LOWER DVT on DOS: 05/10/23, RT LOWER DVT on DOS: 04/30/21, RLDVT on DOS: 04/30/21 Technique: Duplex Doppler evaluation including color Doppler and spectral/pulsed waveform analysis of the lower extremity arteries was performed. Finding: Velocities and waveforms within normal limits. REFERENCE VALUES, [facility]) vascular Imaging Lab Criteria: Peak systolic velocity ranges (in cm/sec) are as follows: <150 cm/s - <20 % stenosis 150-200 cm/s - 20-49% stenosis 200-300 cm/s - 50-75% stenosis >300 cm/s -> 75% stenosis IMPRESSION: There is no evidence for peripheral vascular insufficiency in the right lower extremity. There is no evidence for peripheral vascular insufficiency in the left lower extremity. No significant focal stenosis is identified.
[2024-10-14] MEDS: LACTULOSE 20Gm/30ML SOLN PO ONE (13:15)
--- NOTE | 2024-10-14 13:21 | DVHCONRES ---
Date Seen: Oct 14, 2024 Reason for Consultation Right foot wound History of Present Illness The patient is a 39-year-old male with past medical history of diabetes mellitus, MRSA of the urine, hyperlipidemia, and methamphetamine abuse presented to [facility] ED with complaint of fever. Patient reports he has been experiencing fever, associated with generalized weakness, abdominal pain, presents with Kan catheter in place due to recent prostate surgery. Patient was seen and evaluated in the ED, laboratory data shows WBC 6.1, hemoglobin 9.5, hematocrit 28.7, platelets 203, sodium 130, potassium 4.0, BUN 23, creatinine 1.12, glucose 382, calcium 8.5, albumin 3.1, blood pressure 110/70, heart rate 136 trending down to 96, temperature 103.2 F trending down to 97.6 F, O2 saturation 95% on room air. Abdomen/pelvis CT revealing evidence of left sacroiliitis with gas and fluid extending into left pelvic muscles likely representing abscess; rectal wall thickening correlate for symptoms of proctitis; Kan catheter decompressed urinary bladder with wall thickening; hypodense appearance of the mildly enlarged prostate, cystitis and prostatitis or possible. Patient was started on IV antibiotic regimen vancomycin, please see medication orders section in the computer. On my assessment, patient denied chest pain, no headache, no dizziness, no diaphoresis, no shortness of breaths, no nausea, no vomiting, no fever, no chills. Patient was admitted for further evaluation and medical management. Past Medical History See H&P Past Surgical History See H&P Family History: Family history: Diabetes mellitus GRANDMOTHER (UNK) Allergies: Coded Allergies: No Known Drug Allergy (Unverified Allergy, Unknown, 10/03/24) Home Meds Reported Medications Semaglutide (Ozempic) 8 Mg/3 Ml Inj, 2 MG SC QWEEKLY for 28 Days, #3 10/03/24 Insulin Glargine (Lantus Solostar) 100 Unit/Ml Inj, 20 UNIT SC QPM for 75 Days, #15 10/03/24 Empagliflozin (Jardiance) 25 Mg Tab, 1 TAB PO DAILY for 90 Days, #90 08/24/24 Metformin Hydrochloride (Metformin Hcl) 1,000 Mg Tab, 1 TAB PO BID for 90 Days, #180 08/24/24 Atorvastatin Calcium (Lipitor) 10 Mg Tab, 1 TAB PO QPM for 90 Days, #90 05/10/23 Current Medications Current Medications Medications (Trade) Dose Ordered Sig/Dion Route PRN Reason Start Time Stop Time Status Last Admin Ceftaroline Fosamil 400 mg/ Sodium Chloride 250 ml @ 250 mls/hr Q12HR IV 10/13/24 22:00 10/13/24 22:41 Daptomycin 750 mg/ Sodium Chloride 50 ml @ 100 mls/hr DAILY IV 10/14/24 10:00 Pantoprazole Sodium (Protonix) 40 mg DAILY IV 10/14/24 10:00 10/14/24 10:26 Sodium Chloride 1,000 ml @ 100 mls/hr Q10H IV 10/14/24 10:00 10/14/24 12:31 Lactulose 30 ml DAILY PO 10/15/24 10:00 UNV Vital Signs Vital Signs Date Time Temp Pulse Resp B/P (MAP) Pulse Ox O2 Delivery O2 Flow Rate FiO2 10/14/24 12:45 88 21 106/66 (79) 99 10/14/24 12:00 Mechanical Ventilator+ 30 30 10/14/24 12:00 98.0 98.0 10/14/24 08:00 0 Physical Exam Dermatological: Skin is dry with mild erythema and some maceration around the wound site No gross deformities noted Mild non-pitting edema present bilaterally Wound: Location: Right plantar hallux. Measures: 2 cm in length, 1 cm in width, and 1 cm in depth. Depth: Full thickness Base: Mix of granulation/slough Drainage: Yes Odor: Yes Periwound: Intact Vascular: Dorsalis pedis and posterior tibial pulses are 1+ bilaterally Capillary refill is under 2 seconds Skin temperature is warm bilaterally Neurologic: Protective sensation is absent on the plantar forefoot bilaterally Monofilament testing reveals decreased sensation in multiple plantar sites Musculoskeletal: Range of motion at the ankle and MTP joints is within normal limits. Strength is 5/5 in all tested muscle groups. Gait is antalgic due to offloading of the affected limb. Labs/Diagnostic Data Labs Test 10/14/24 10:42 10/14/24 08:11 10/14/24 05:04 10/14/24 03:32 Range/Units Urine Color Dark-yellow Yellow Urine Clarity Ex.turbid Clear Urine pH 5.0 5.0-9.0 Urine Specific [place] 1.023 1.001-1.035 Urine Protein 1+ H Negative Urine Ketones Negative Negative Urine Blood 2+ H Negative /uL Urine Nitrite Negative Negative Urine Bilirubin Negative Negative Urine Urobilinogen Normal Negative mg/dL Urine Leukocyte Esterase 3+ Negative /uL Urine RBC 248 0 - 3 /hpf Urine Microscopic WBC 70 H 0-3 /HPF Urine Squamous Epithelial Cells None seen <5 /hpf Urine Bacteria Few H None Seen /hpf Urine Mucus Few None Seen Urine Yeast (Budding) Loaded None Seen /hpf Urine Glucose Normal Normal mg/dL Blood Gas Specimen Type Arterial Blood Gas Sample Site Right radial Blood Gas Patient Temperature 37.0 Arterial Blood Date Drawn [id number] Arterial Blood pH 7.355 7.350-7.450 Arterial Blood Partial Pressure CO2 32.4 L 35.0-48.0 mmHg Arterial Blood Partial Pressure O2 133.1 H 83.0-108.0 mmHg Arterial Blood HCO3 17.7 L 21.0-28.0 mmol/L Arterial Blood Oxygen Saturation 98.2 H 94.0-98.0 % Arterial Blood Base Excess -7.1 L -2.0-3.0 mmol/L Arterial Blood Oxyhemoglobin 97.4 94.0-98.0 % Arterial Blood Carboxyhemoglobin 0.3 L 0.5-1.5 % Arterial Blood Methemoglobin 0.5 0.0-1.5 % Simone Test Modified Blood Gas Total Hemoglobin 7.60 L 13.5-17.5 g/dL Blood Gas Set Respiration Rate 20.0 Blood Gas Modality Vent - ac FiO2 % 30.0 Blood Gas Tidal Volume 500.0 Blood Gas PEEP or CPAP 5.0 White Blood Count 5.9 4.4-10.8 10^3/uL Red Blood Count 2.65 L 4.5-5.90 10^6/uL Hemoglobin 7.2 L 13.5-17.5 g/dL Hematocrit 22.5 L 41.0-53.0 % Mean Corpuscular Volume 84.7 80.0-100.0 fL Mean Corpuscular Hemoglobin 27.2 L 28.0-32.0 pg Mean Corpuscular Hemoglobin Concent 32.1 32.0-36.0 g/dL Red Cell Distribution Width 17.2 H 11.8-14.3 % Platelet Count 150 140-450 10^3/uL Mean Platelet Volume 7.8 6.9-10.8 fL Neutrophils (%) (Auto) 66.7 37.0-80.0 % Lymphocytes (%) (Auto) 25.5 10.0-50.0 % Monocytes (%) (Auto) 6.1 0.0-12.0 % Eosinophils (%) (Auto) 1.2 0.0-7.0 % Basophils (%) (Auto) 0.5 0.0-2.0 % Neutrophils # (Auto) 3.9 1.6-8.6 10 ^3/uL Lymphocytes # (Auto) 1.5 0.4-5.4 10 ^3/uL Monocytes # (Auto) 0.4 0-1.3 10 ^3/uL Eosinophils # (Auto) 0.1 0-0.8 10 ^3/uL Basophils # (Auto) 0 0-0.2 10 ^3/uL Nucleated Red Blood Cells 0.0 % Hemoglobin A1c 13.2 H <5.7 % A1C Sodium Level 143 136-145 mmol/L Potassium Level 4.0 3.5-5.1 mmol/L Chloride Level 115 H 98-107 mmol/L Carbon Dioxide Level 20 20-31 mmol/L Anion Gap 8 5-15 Blood Urea Nitrogen 43 H 9-23 mg/dL Creatinine 2.65 H 0.700-1.30 mg/dL Glomerular Filtration Rate Calc 30 >90 mL/min BUN/Creatinine Ratio 16.2 10.0-20.0 Serum Glucose 136 H 74-106 mg/dL Calcium Level 7.0 L 8.7-10.4 mg/dL Magnesium Level 1.8 1.6-2.6 mg/dL Test 10/13/24 07:26 10/13/24 03:16 10/12/24 14:00 10/12/24 03:39 Range/Units Blood Gas Critical Value Read Back yes Blood Gas Notified Whom zuleyka danielson md Blood Gas Notified Time [id number] Blood Gas Notified By dino zhang rrt Phosphorus Level 5.5 H 2.4-5.1 mg/dL Complement C3 67 L 82-167 mg/dL Complement C4 20 12-38 mg/dL Total Bilirubin < 0.2 L 0.2-1.0 mg/dL Aspartate Amino Transferase (AST) 12 L 13-40 U/L Alanine Aminotransferase (ALT) 9 7-40 U/L Alkaline Phosphatase 78 46-116 U/L Total Protein 6.1 5.7-8.2 g/dL Albumin 2.1 L 3.2-4.8 g/dL Test 10/11/24 22:17 10/11/24 21:31 10/10/24 05:07 10/07/24 13:01 Range/Units Vancomycin Level Trough 38.2 *H 5-10 ug/mL B-Type Natriuretic Peptide 102.53 0-100 pg/mL Random Vancomycin Level 15.2 H 5-10 ug/mL HIV (1&2) Antibody Negative Negative Test 10/07/24 09:00 10/05/24 18:40 10/05/24 15:02 10/05/24 11:48 Range/Units Erythrocyte Sedimentation Rate 102 H 0-20 mm/hr C-Reactive Protein High Sensitivity 19.31 H <1.0 mg/dL Triglycerides Level 153 H < 150 mg/dL Cholesterol Level 87 < 200 mg/dL LDL Cholesterol 39 < 100 mg/dL HDL Cholesterol 9 L 40-59 mg/dL Treponema pallidum Antibody Non-reactive Negative Differential Total Cells Counted 100.0 100 Neutrophils % (Manual) 73 37.0-80.0 Band Neutrophils % (Manual) 5 Lymphocytes % (Manual) 13 10.0-50.0 Monocytes % (Manual) 8 0-12 Eosinophils % (Manual) 0 0-7 Basophils % (Manual) 0 0.0-2.0 Metamyelocytes % (manual) 0 Myelocytes % (Manual) 0 Promyelocytes % (Manual) 0 Blast Cells % (Manual) 0 Reactive Lymphocytes 1 Platelet Estimate Decreased Ammonia < 10 L 11-32 umol/L Urine Opiates Screen Neg NEGATIVE Urine Fentanyl Screen Neg NEGATIVE Urine Barbiturates Screen Neg NEGATIVE Urine Phencyclidine Screen Neg NEGATIVE Urine Amphetamines Screen Neg NEGATIVE Urine Benzodiazepines Screen Neg NEGATIVE Urine Cocaine Screen Neg NEGATIVE Urine Cannabinoids Screen Neg NEGATIVE POC Glucose 226 H 70-106 mg/dl Test 10/05/24 02:47 10/03/24 04:25 10/02/24 21:24 Range/Units Anisocytosis (manual) Slight Thyroid Stimulating Hormone (TSH) 1.36 0.55-4.78 uIU/mL Hepatitis B Surface Antigen Negative Negative Hepatitis C Antibody Negative Negative Prothrombin Time 12.3 H 9.3-11.8 sec Prothrombin Time INR 1.18 H 0.9-1.15 Activated Partial Thromboplast Time 34.4 24.5-34.5 SEC Lactic Acid Level 1.3 0.4-2.0 mmol/L Microbiology Date/Time Source Procedure Growth Status 10/11/24 21:30 Blood Blood Culture - Preliminary NO GROWTH AFTER 48 HOURS OF INCUBATION. Resulted 10/10/24 16:45 Sputum Expectorated Sputum Gram Stain - Final Complete 10/10/24 16:45 Sputum Expectorated Sputum Respiratory Culture - Final Complete 10/03/24 00:00 Toe Gram Stain - Final Complete 10/03/24 00:00 Wound Culture - Final Methicillin Resistant S.aureus Enterococcus faecalis Complete Problems(with codes): (1) ABSCESS LEFT INNER ARM I & D (2) Hyperglycemia (3) Fractured toe (4) DKA (diabetic ketoacidosis) (5) Cellulitis of left lower leg (6) Abscess of left foot (7) Cellulitis of toe of right foot (8) Abscess of right foot (9) Vomiting (10) Anxiety (11) Prostatitis (12) Type 2 diabetes mellitus with hyperglycemia (13) Dehydration (14) Acute abdominal pain (15) Leukocytosis, unspecified (16) Acute epididymitis (17) Substance abuse (18) Hyponatremia (19) Sepsis, unspecified organism (20) Abdominal abscess (21) Anemia (22) UTI (urinary tract infection) (23) Sepsis (24) Methamphetamine abuse (25) Prostatic abscess (26) Methamphetamine abuse (27) Osteomyelitis of toe of right foot (28) Bacteremia due to methicillin resistant Staphylococcus aureus Plan/Recommendation ASSESSMENT: Patient is a 39 year old seen on the floor for a worsening ulcer PLAN: - The patients chart was reviewed, clinical findings were discussed with the patient, the etiologies of the conditions were discussed in detail, and a treatment plan was agreed to at this time, with both oral and written instructions provided. - reviewed advanced imaging - discussed plan is to perform an incision and drainage - patient will be NPO at midnight - take him to the OR tomorrow - we will get cultures in the OR - probable source of bacteremia All questions were answered and concerns addressed to the patient's satisfaction. The patient was given the phone number to the clinic and was told how to make contact with the clinic should any concerns or questions arise. Patient understands that if any questions or concerns arise prior to the next appointment, we should be contacted immediately. FOLLOW-UP: Continue to follow while inpatient Plan discussed with: Patient Visit Coding Podiatry Date of Service if different f: Oct 14, 2024 Billing Provider: JAKY BLANC DPM Podiatry Common Visit Codes: CONSULT ONLY Podiatry Consult Codes: 00114-FF/[id number] NEW/EST HI 80 JAKY BLANC DPM Oct 14, 2024 13:21
--- NOTE | 2024-10-14 14:54 | DVHPN2 ---
Progress Note Date Seen: Oct 14, 2024 Medical Necessity Reason Pt with a Central, PICC or Fol: No Objective vital signs Vital Sign Date Time Temp Pulse Resp B/P (MAP) Pulse Ox O2 Delivery O2 Flow Rate FiO2 10/14/24 14:00 90 10/14/24 14:00 20 100 Mechanical Ventilator+ 30 30 10/14/24 13:49 103/65 (78) 10/14/24 13:30 97.2 97.2 10/14/24 08:00 0 Total Intake and Output 10/13/24 10/13/24 10/14/24 15:00 23:00 07:00 Intake Total 892.00 ml 1084.00 ml 1174.00 ml Output Total 75 ml 125 ml Balance 892.00 ml 1009.00 ml 1049.00 ml medications Current Medications Medications Dose Ordered Sig/Dion Route Start Time Stop Time Status Last Admin Dose Admin Enoxaparin Sodium 40 mg DAILY SC 10/07/24 10:00 10/13/24 10:44 40 MG Acetaminophen 650 mg Q6HP PRN MT 10/10/24 10:00 10/10/24 15:18 650 MG Midazolam HCl 50 ml @ 1 mls/hr Q24H IV 10/10/24 17:15 10/14/24 05:23 6 MLS/HR Fentanyl Citrate 250 ml @ 2.5 mls/hr Q24H IV 10/10/24 17:15 10/13/24 20:46 20 MLS/HR Propofol 100 ml @ 2.496 mls/ hr Q24H IV 10/10/24 17:15 Norepinephrine Bitartrate 250 ml @ 3.75 mls/hr Q24H IV 10/10/24 17:45 10/13/24 06:36 3.75 MLS/HR Diagnostic Test (Pha) 1 strip Q6HR 10/11/24 00:00 10/14/24 12:31 1 STRIP Insulin Human Regular FOLLOW SLIDING SCALE Q6HR SC 10/11/24 00:00 10/14/24 12:00 4 UNITS Dextrose 50 ml UD IV 10/10/24 22:00 Amino Acids 0 ml @ 0 mls/hr PER PHARMACY IV 10/10/24 19:00 UNV Aspirin 81 mg DAILY PO 10/11/24 10:00 10/14/24 10:21 81 MG Enteral Nutritional Formula 1,000 ml 40ML/HR GT 10/10/24 21:15 10/13/24 22:43 1,000 ML Bumetanide 12.5 mg/Miscellaneous 50 ml @ 2 mls/hr Q24H IV 10/13/24 09:15 10/14/24 10:26 2 MLS/HR Ceftaroline Fosamil 400 mg/ Sodium Chloride 250 ml @ 250 mls/hr Q12HR IV 10/13/24 22:00 10/13/24 22:41 250 MLS/HR Daptomycin 750 mg/ Sodium Chloride 50 ml @ 100 mls/hr DAILY IV 10/14/24 10:00 Pantoprazole Sodium 40 mg DAILY IV 10/14/24 10:00 10/14/24 10:26 40 MG Sodium Chloride 1,000 ml @ 100 mls/hr Q10H IV 10/14/24 10:00 10/14/24 12:31 100 MLS/HR Lactulose 30 ml DAILY PO 10/15/24 10:00 Examination: GENERAL:Abnormal, HEENT:Abnormal, LUNGS:Abnormal, CVS:Abnormal, ABDOMEN:Abnormal laboratory and microbiology Laboratory Tests 10/14/24 05:04 10/14/24 03:32 Test 10/14/24 03:32 Range/Units Serum Glucose 136 H 74-106 mg/dL Microbiology Date/Time Source Procedure Growth Status 10/11/24 21:30 Blood Blood Culture - Preliminary NO GROWTH AFTER 48 HOURS OF INCUBATION. Resulted 10/10/24 16:45 Sputum Expectorated Sputum Gram Stain - Final Complete 10/10/24 16:45 Sputum Expectorated Sputum Respiratory Culture - Final Complete 10/03/24 00:00 Toe Gram Stain - Final Complete 10/03/24 00:00 Wound Culture - Final Methicillin Resistant S.aureus Enterococcus faecalis Complete Problem List/Assessment/Plan Problem List/Assessment/Plan sp TIM bacteremia drug abuse septic shock MV endocarditis of Anterior leaflet 0.[address] elizabeth severino abx eventual CT surgical consult though very unlikely inoperable Plan discussed with: Other (rn) Dietary Evaluation Review Comments: 1) Add cardiac restriction to 60g CCHO diet 2) Initiate Glucerna qd. Encourage optimal PO intake 3) Follow-up with urology and surgery 4) Follow-up with social organization professor r/t methamphetamine abuse 5) Continue to monitor I&O, labs, and skin integrity Expected Outcomes/Goals: 1) appetite and labs to improve 2) wound to improve 3) f/u in 3-5 days Date of Service: Oct 14, 2024 Billing Provider: DIDIER VALDEZ MD Common Visit Codes: NOT BILLABLE DIDIER VALDEZ MD Oct 14, 2024 14:54
--- NOTE | 2024-10-14 14:56 | DVHOP2 ---
Operative Report Operative Report CARDIAC TRIM MASTER OPERATOR PROCEDURE REPORT [place], [place] Date of Service: 10/14/24 Boot Turner: Didier Valdez MD PROCEDURES PERFORMED: trans esophageal echocardiogram, conscious sedation <15 mins, doppler assesment complete TIM, DC cardioversion PREOPERATIVE DIAGNOSES: r/o endocarditis, cva POSTOP DIAGNOSIS: MV endocarditis DESCRIPTION OF PROCEDURE: The patient or appropriate family signed informed consent understanding the risks, benefits and alternatives of the procedure, they wished to proceed. The patient was brought to the cardiac laboratory mechanical technician in n.p.o. state. the patient was given 15 ml of oral viscous lidocaine. the patient was placed in a left lateral decubitu s position with bite block in mouth. NExt conscious sedation was administered per laboratory mechanical technician protocol with PATIENT WAS INTUBATED AND SEDATED PER ICU PROTOCOL . Next a TIM probe was advanced to the mid esophagus with ease and multiple planar images obtained. At the completion of the procedure , probe was removed and there were no immediate complications. FINDINGS: Left Ventricle: Normal LV size and function, LVEF estimated at 60% Right Ventricle: NOrmal RV size and function Left atrium: normal Right atrium: normal RA Left atrial appendage: no thrombus noted, d Aortic valve: trileaflet valve, no severe or AI Mitral Valve: structurally normal, anterior leaflet has 0. 8 cm vegetation with stalk . 0.8 x 0.4 cm, no significant MR is noted however, no abscess noted Tricuspid Valve: mild tricuspid regurgitaiton, no TS Pulmonic Valve: structurally normal, no severe PIor PS Interatrial septum: negative color flow for R to L shunt, negative bubble study Ascending aorta: no severe plaquing DIDIER VALDEZ MD Oct 14, 2024 14:56
--- NOTE | 2024-10-14 15:30 | DVHPNRES ---
Progress Note Date Seen: Oct 14, 2024 Resident Creating Document: ADAM MARTINO RESIDENT Medical Necessity Reason Pt with a Central, PICC or Fol: No Subjective Patient reports: No new complaints Changes from previous H/P or p: No Changes Objective vital signs Vital Sign Date Time Temp Pulse Resp B/P (MAP) Pulse Ox O2 Delivery O2 Flow Rate FiO2 10/14/24 14:45 88 20 105/66 (79) 98 10/14/24 14:00 Mechanical Ventilator+ 30 30 10/14/24 13:30 97.2 97.2 10/14/24 08:00 0 Total Intake and Output 10/13/24 10/13/24 10/14/24 15:00 23:00 07:00 Intake Total 892.00 ml 1084.00 ml 1174.00 ml Output Total 75 ml 125 ml Balance 892.00 ml 1009.00 ml 1049.00 ml medications Current Medications Medications Dose Ordered Sig/Dion Route Start Time Stop Time Status Last Admin Dose Admin Enoxaparin Sodium 40 mg DAILY SC 10/07/24 10:00 10/13/24 10:44 40 MG Acetaminophen 650 mg Q6HP PRN LA 10/10/24 10:00 10/10/24 15:18 650 MG Midazolam HCl 50 ml @ 1 mls/hr Q24H IV 10/10/24 17:15 10/14/24 05:23 6 MLS/HR Fentanyl Citrate 250 ml @ 2.5 mls/hr Q24H IV 10/10/24 17:15 10/13/24 20:46 20 MLS/HR Propofol 100 ml @ 2.496 mls/ hr Q24H IV 10/10/24 17:15 Norepinephrine Bitartrate 250 ml @ 3.75 mls/hr Q24H IV 10/10/24 17:45 10/13/24 06:36 3.75 MLS/HR Diagnostic Test (Pha) 1 strip Q6HR 10/11/24 00:00 10/14/24 12:31 1 STRIP Insulin Human Regular FOLLOW SLIDING SCALE Q6HR SC 10/11/24 00:00 10/14/24 12:00 4 UNITS Dextrose 50 ml UD IV 10/10/24 22:00 Amino Acids 0 ml @ 0 mls/hr PER PHARMACY IV 10/10/24 19:00 UNV Aspirin 81 mg DAILY PO 10/11/24 10:00 10/14/24 10:21 81 MG Enteral Nutritional Formula 1,000 ml 40ML/HR GT 10/10/24 21:15 10/13/24 22:43 1,000 ML Bumetanide 12.5 mg/Miscellaneous 50 ml @ 2 mls/hr Q24H IV 10/13/24 09:15 10/14/24 10:26 2 MLS/HR Ceftaroline Fosamil 400 mg/ Sodium Chloride 250 ml @ 250 mls/hr Q12HR IV 10/13/24 22:00 10/14/24 15:00 250 MLS/HR Daptomycin 750 mg/ Sodium Chloride 50 ml @ 100 mls/hr DAILY IV 10/14/24 10:00 Pantoprazole Sodium 40 mg DAILY IV 10/14/24 10:00 10/14/24 10:26 40 MG Sodium Chloride 1,000 ml @ 100 mls/hr Q10H IV 10/14/24 10:00 10/14/24 12:31 100 MLS/HR Lactulose 30 ml DAILY PO 10/15/24 10:00 Examination GEN: A&O times 1 HEENT: NC/AT; MMM. CV: RRR, regular rhythm LUNGS: CTAB, no w/r/c. ABD: Soft, NT/ND, NBS, no masses or organomegaly. EXT: skin Warm, well perfused. no rashes. No clubbing, cyanosis, or edema. R ight toe wrapped in gauze, chronic ulcer, checked the wounds in the sacrum and the toe unremarkable. NEURO: Ambulating with no limitations. No focal deficits. laboratory and microbiology Laboratory Tests 10/14/24 05:04 10/14/24 03:32 Test 10/14/24 03:32 Range/Units Serum Glucose 136 H 74-106 mg/dL Microbiology Date/Time Source Procedure Growth Status 10/11/24 21:30 Blood Blood Culture - Preliminary NO GROWTH AFTER 48 HOURS OF INCUBATION. Resulted 10/10/24 16:45 Sputum Expectorated Sputum Gram Stain - Final Complete 10/10/24 16:45 Sputum Expectorated Sputum Respiratory Culture - Final Complete 10/03/24 00:00 Toe Gram Stain - Final Complete 10/03/24 00:00 Wound Culture - Final Methicillin Resistant S.aureus Enterococcus faecalis Complete Labs and/or images reviewed: Labs reviewed by me, Image(s) reviewed by me Problem List/Assessment/Plan Problem List/Assessment/Plan Mr. Velazquez is a 39-year-old male with a history of insulin-dependent diabetes mellitus, GERD, bipolar disorder, schizophrenia, chronic diabetic ulcer, dyslipidemia, MRSA urinary infection, benign prostatic hyperplasia, and methamphetamine abuse, who presented to [facility] on 10/02/2024 with generalized weakness, fever, and abdominal discomfort. He required endotracheal intubation, low-dose vasopressor support, and chemical sedation for sepsis and persistent MRSA bacteremia. Cardiology was consulted for possible subacute endocarditis, with plans for transesophageal echocardiogram (TIM), though altered level of consciousness (ALOC) complicates evaluation. ECG showed sinus tachycardia at 133 bpm, and inflammatory markers were elevated. Imaging revealed a pelvic abscess, and urinalysis was suggestive of a UTI. Blood cultures from 10/02, 10/03, and 10/04 remained positive for MRSA, with the most recent on 10/09 still showing persistent bacteremia. HIV, hepatitis B and C, and syphilis testing were negative. The consultation was requested by Dr. Corbin for management of sepsis, pelvic abscess, recurrent MRSA bacteremia, and evaluation for endocarditis. Assessment: #Persistent bacteremia rule out subacute endocarditis #CVA, left MCA territory, possible infectious cardioembolic source #Cephalic vein thrombus; ? infectious thromboembolism #Wtb-[id number] diabetes mellitus #Methamphetamine abuse, unknown status of IV drug abuse #Mild aortic root enlargement. Mild TR, No pericardial effusion masses or vegetations noted on TTE #Meningitis? Possible, HSV encephalitis possible?, unable to rule out vs thromboembolic stroke #Abdomino-pelvic abscess: Evidence of left sacroiliitis with gas and fluid extending into left pelvic muscles likely representing abscess #UTI due to possible hematogenous seeding of bacteremia #MRSA Aspiration Pneumonia, Trace bilateral pleural effusions with adjacent atelectasis and patchy posterior bibasilar pulmonary infiltrate with MRSA #Uncontrolled DM with HbA1C 13.2 #TIM found MR with 0.8 cm vegetations. Plan: #Repeat blood culture #Check MRI brain for rule out thromboembolism. Also please consider MRI of pelvis to locate intrapelvic collection or mass. #STD panel to check. #Continue Daptomycin with Ceftaroline for appropriate coverage intracerebral and extracerebral bacteremia. #Surgical vs IR consult for possible drainage of collection as found. #check baseline CK follow up labs, weekly CK. #Daily 12 lead EKG to look for LA prolongation >200 ms for higher risk of intracardiac abscess, an absolute surgical emergency. #LP with CSF profile when possible with EEG #Continue ICU level care with close follow up by Primary Team. Discussed with Dr. Solano. Infectious disease team will follow up. Plan discussed with: Patient My Orders My Orders Orders - ADAM MARTINO RESIDENT Procedure Category Date Status Time Ceftaroline (Teflaro) PHA 10/13/24 In Process 22:00 Electrocardigram EKG 10/14/24 Logged 05:00 Electrocardigram EKG 10/15/24 Logged 05:00 Electrocardigram EKG 10/16/24 Logged 05:00 Electrocardigram EKG 10/17/24 Logged 05:00 Electrocardigram EKG 10/18/24 Logged 05:00 Electrocardigram EKG 10/19/24 Logged 05:00 Electrocardigram EKG 10/20/24 Logged 05:00 Electrocardigram EKG 10/21/24 Logged 05:00 Electrocardigram EKG 10/22/24 Logged 05:00 Electrocardigram EKG 10/23/24 Logged 05:00 Daptomycin (Cubicin) PHA 10/14/24 In Process 10:00 Creatine Kinase LAB 10/14/24 Logged 15:27 Dietary Evaluation Review Comments: 1) Add cardiac restriction to 60g CCHO diet 2) Initiate Glucerna qd. Encourage optimal PO intake 3) Follow-up with urology and surgery 4) Follow-up with psychotherapist social worker r/t methamphetamine abuse 5) Continue to monitor I&O, labs, and skin integrity Expected Outcomes/Goals: 1) appetite and labs to improve 2) wound to improve 3) f/u in 3-5 days ADAM MARTINO RESIDENT Oct 14, 2024 15:30
--- NOTE | 2024-10-14 17:53 | DVHPNRES ---
Progress Note Date Seen: Oct 14, 2024 Resident Creating Document: GAURI IGNACIO RESIDENT Medical Necessity Reason Pt with a Central, PICC or Fol: No Subjective Review of Systems patient is a 39-year-old male with past medical history of diabetes mellitus, MRSA of the urine, hyperlipidemia, and methamphetamine abuse presented to [facility] ED with complaint of fever. Patient reports he has been experiencing fever, associated with generalized weakness, abdominal pain, presents with Kan catheter in place due to recent prostate surgery. Patient was seen and evaluated in the ED, laboratory data shows WBC 6.1, hemoglobin 9.5, hematocrit 28.7, platelets 203, sodium 130, potassium 4.0, BUN 23, creatinine 1.12, glucose 382, calcium 8.5, albumin 3.1, blood pressure 110/70, heart rate 136 trending down to 96, temperature 103.2 F trending down to 97.6 F, O2 saturation 95% on room air. Abdomen/pelvis CT revealing evidence of left sacroiliitis with gas and fluid extending into left pelvic muscles likely representing abscess; rectal wall thickening correlate for symptoms of proctitis; Kan catheter decompressed urinary bladder with wall thickening; hypodense appearance of the mildly enlarged prostate, cystitis and prostatitis or possible. Patient was started on IV antibiotic regimen vancomycin, 10/03: Patient has very high fevers up to 103, CT showing left sacroiliitis with gas fluid in 2 left pelvic muscles possible abscess. We will consult surgery. There is also proctitis and bladder wall thickening. We will continue broad- spectrum IV antibiotics. ?Concern of IVDU ,. Patient is tremulous mildly we will continue watching for alcohol withdrawal. We will monitor. We will need UDS. Significant hyperglycemia, diabetes likely complicating and/or causing wound/healing. Patient had recent prostate surgery and Urology consult placed. 10/04: DC patient's culture came VAC MRSA, already on vancomycin. Continue IV antibiotics. We will start Lantus 20 HS,. Continue present therapy 10/05: Patient appears altered today, had some visitors prior. Per RN patient has been normal for that. We will get stat CT, UDS and we will continue ongoing treatment and workup. Surgery and Urology both recommend continuing IV antibiotics, IR consult for possible drainage. Initial CT head negative, UDS negative. Patient continues to be confused had a fall. Repeating head CT again. Getting stat portable chest x-ray, repeat CBC CMP, TSH, ammonia, ABG stat, at sitter one-to-one, neurology consult for altered mental status 10/06: 2nd CT yesterday showed left MCA territory stroke. Patient's blood cultures continue to, with MRSA vanc sensitive. Continuing vanc. I am suspicious of endocarditis. We will get echocardiogram continue vanc. Not totally convinced of stroke causing confusion. Confusion/encephalopathy might be from sepsis, or other causes. We will hold off lumbar puncture right now and have follow up with Neurology to rule out meningitis/HSV encephalitis. Tomorrow we will get HIV/trapped antibody test. Start aspirin Plavix, statin, echo. 10/07: Echo is negative for vegetations, blood cultures were redrawn pending. Neurology agrees with LP. Neurology also agrees with ETHEL. Consult placed. Treponemal antibody/HIV pending. Yesterday we restarted patient's bipolar medication Abilify. Continuing vanc/ceftriaxone/metronidazole. Pending official ACTUARIAL CLERK, neurology is doing aspirin only, Plavix discontinued for cva, continue Lipitor... Using Haldol and Ativan prn to control agitation, 10/08: Patient continues to require Ativan due to behavioral issues due to sepsis encephalopathy on top of baseline behavioral bipolar disorder. Taking patient for LP today likely, cardiology is holding off ETHEL evaluation given patient is encephalopathic, patient's blood cultures 3rd time are both with early signs of Gram-positive cocci. Urology is getting MRI pelvis to evaluate for history of prostatic abscess. CT right great toe yesterday with chronic changes from osteomyelitis, this wound also showed MRSA. Pharmacy has some concern of vancomycin having low MAC. At this point it is unclear source of MRSA with recurrent MRSA, we will consult ID and continue to wait for improvement of patient's mental status to get ETHEL as concern for endocarditis emboli remains very possible given patient had left MCA stroke with clean corotids/vasculature. 10/09: Patient has bipolar, unable to make decisions, does not understand the severity of illness. Continuing behavioral control with the Haldol and Ativan. Holding off LP patient is agitated unable to follow up commands, same reason holding up ETHEL, some reason holding MRI. Vanc is at appropriate level but no ID consult available. Continues to have MRSA bacteremia, we will repeat culture.. 10/10: Patient is still remaining agitated, encephalopathic. Now having low- grade fevers. Start rectal Tylenol, psych has seen yesterday recommending ODT Zyprexa, we will do IM Haldol 5 mg q.6 scheduled, use Ativan 2 mg q.2h for breakthrough agitation. With continued positive blood culture despite therapeutic vanc levels, no ID consult, we will add 2nd MRSA coverage linezolid. Maintain sitter bedside. - later in PM, patient nonresponsive, abg with hyperventilation, cxr unconcerning (no septic nodules...), also having higher temps. despite no ativan/haldol, patient was nonresponsive, concern for airway protection, pt is intubated and R IJ cvc inserted. repeat CT with continued L mca stroke. started asa plavix. continue zyvox, vancomycin, ctx/flagyl. on sunday, will reassess ethel / LP, ID consult still pending. neuro following. family updated. pulm for vent managment. 10/11-10/12 - weekend coverage. developed vanc JAYLEEN , now nephrology onboard. changed vanc to dapto. 10/13: jayleen continues, anuric, nephrology following. still pending ID consult. cards aware for ETHEL. neurology to follow and need clearance from MRI brain and MRI pelvis today (there is no sign of metal in oral cavity, defer to mri team eval), neurology to clear for LP. Patient was seen and examined in the ICU on the bedside. He is on mechanical ventilation with FiO2 30%, peep 5, tidal volume 500 mL, respiratory rate 20. Patient had an ETHEL earlier today and found mitral valve vegetation with normal ejection fraction. Podiatry evaluated the patient for right foot ulcer and recommended I and D tomorrow. Will talk to Radiology regarding MRI clearance for pelvis and head. Objective vital signs Vital Sign Date Time Temp Pulse Resp B/P (MAP) Pulse Ox O2 Delivery O2 Flow Rate FiO2 10/14/24 15:47 88 20 105/68 (80) 100 30 10/14/24 14:00 Mechanical Ventilator+ 10/14/24 13:30 97.2 97.2 10/14/24 08:00 0 Total Intake and Output 10/13/24 10/13/24 10/14/24 15:00 23:00 07:00 Intake Total 892.00 ml 1084.00 ml 1174.00 ml Output Total 75 ml 125 ml Balance 892.00 ml 1009.00 ml 1049.00 ml medications Current Medications Medications Dose Ordered Sig/Dion Route Start Time Stop Time Status Last Admin Dose Admin Enoxaparin Sodium 40 mg DAILY SC 10/07/24 10:00 10/13/24 10:44 40 MG Acetaminophen 650 mg Q6HP PRN SD 10/10/24 10:00 10/10/24 15:18 650 MG Midazolam HCl 50 ml @ 1 mls/hr Q24H IV 10/10/24 17:15 10/14/24 05:23 6 MLS/HR Fentanyl Citrate 250 ml @ 2.5 mls/hr Q24H IV 10/10/24 17:15 10/13/24 20:46 20 MLS/HR Propofol 100 ml @ 2.496 mls/ hr Q24H IV 10/10/24 17:15 Norepinephrine Bitartrate 250 ml @ 3.75 mls/hr Q24H IV 10/10/24 17:45 10/13/24 06:36 3.75 MLS/HR Diagnostic Test (Pha) 1 strip Q6HR 10/11/24 00:00 10/14/24 12:31 1 STRIP Insulin Human Regular FOLLOW SLIDING SCALE Q6HR SC 10/11/24 00:00 10/14/24 12:00 4 UNITS Dextrose 50 ml UD IV 10/10/24 22:00 Amino Acids 0 ml @ 0 mls/hr PER PHARMACY IV 10/10/24 19:00 UNV Aspirin 81 mg DAILY PO 10/11/24 10:00 10/14/24 10:21 81 MG Enteral Nutritional Formula 1,000 ml 40ML/HR GT 10/10/24 21:15 10/13/24 22:43 1,000 ML Bumetanide 12.5 mg/Miscellaneous 50 ml @ 2 mls/hr Q24H IV 10/13/24 09:15 10/14/24 10:26 2 MLS/HR Ceftaroline Fosamil 400 mg/ Sodium Chloride 250 ml @ 250 mls/hr Q12HR IV 10/13/24 22:00 10/14/24 15:00 250 MLS/HR Daptomycin 750 mg/ Sodium Chloride 50 ml @ 100 mls/hr DAILY IV 10/14/24 10:00 Pantoprazole Sodium 40 mg DAILY IV 10/14/24 10:00 10/14/24 10:26 40 MG Sodium Chloride 1,000 ml @ 100 mls/hr Q10H IV 10/14/24 10:00 10/14/24 12:31 100 MLS/HR Lactulose 30 ml DAILY PO 10/15/24 10:00 Examination General: RASS -3, afebrile, mucosae are moist Cardiovascular: Normal S1 and S2. No murmurs, gallops or rubs Respiratory: Mechanically assisted ventilation, equal bilateral airway entree. Clear lung sounds on auscultation Abdomen: Soft, nontender, no organomegaly, sluggish bowel sounds MSK/skin: Mobilization of limbs cannot be evaluated. Skin is dry and warm. bilateral pedal edema +, ulceration in the bottom of the right great toe. Neurological: Orientation cannot be assessed. No apparent motor no sensitive deficits. Pupils are isocoric and reactive laboratory and microbiology Laboratory Tests 10/14/24 05:04 10/14/24 03:32 Test 10/14/24 03:32 Range/Units Serum Glucose 136 H 74-106 mg/dL Microbiology Date/Time Source Procedure Growth Status 10/11/24 21:30 Blood Blood Culture - Preliminary NO GROWTH AFTER 48 HOURS OF INCUBATION. Resulted 10/10/24 16:45 Sputum Expectorated Sputum Gram Stain - Final Complete 10/10/24 16:45 Sputum Expectorated Sputum Respiratory Culture - Final Complete 10/03/24 00:00 Toe Gram Stain - Final Complete 10/03/24 00:00 Wound Culture - Final Methicillin Resistant S.aureus Enterococcus faecalis Complete Labs and/or images reviewed: Labs reviewed by me, Image(s) reviewed by me Problem List/Assessment/Plan Problem List/Assessment/Plan Assessment and plan: NEURO: Acute metabolic encephalopathy secondary to ischemic stroke Possible septic emboli due to persistent MRSA bacteremia History of Bipolar disorder RASS score: -3 - CT head without contrast demonstrated acute left MCA stroke - pending MRI of the head - continue aspirin 81 mg and Plavix 75 mg daily CARDIOVASCULAR: Acute infective endocarditis of mitral valve Possible chronic diastolic heart failure with preserved ejection fraction - ETHEL on 10/14/2024 demonstrated mitral valve, structurally normal, anterior leaflet has a 0.8 cm vegetation with a stalk. 0.8 X 0.4 cm, no significant MR or abscess is noted - TTE revealed EF 45-50%, anteroseptal hypokinesis, biatrial enlargement - Infectious disease on board - Continue IV ceftaroline and daptomycin PULMONARY: Rt sided opacity due to possible mucus plug/volume overload GASTROENTEROLOGY: Ruled out ileus Moderate to Severe colonic volume of stool - lactulose 30 mL through G-tube daily GENITOURINARY: JAYLEEN secondary to vancomycin toxicity Possible prostatic abscess, history of recent prostate surgery Acute complicated cystitis - CT abdomen pelvis demonstrated evidence of left sacroiliitis with gas and fluid extending into left pelvic muscles likely representing abscess. Suboptimal characterization due to lack of contrast. Bilateral inguinal adenopathy is likely reactive. Rectal wall thickening, correlate for symptoms of proctitis. - pending MRI of the pelvis - IV 1/2 normal saline at 100 mL/hours - IV Bumex at 0.5 mg/ hours - Continue IV ceftaroline and daptomycin ENDOCRINE: Type 2 diabetes mellitus, hemoglobin A1c 13.2 Diabetic foot ulcer of right toe - CT right foot without contrast showed erosive changes involved proximal and distal phalanx with involvement of IP joint, possible osteomyelitis/septic arthritis, deep 1st digit plantar ulceration - scheduled for right foot I and D tomorrow - sliding scale of insulin METABOLIC: Moderate Protein calorie malnutrition, albumin 2.1 Hyperphosphatemia secondary to JAYLEEN Hypomagnesemia HEME: Acute on Chronic normocytic anemia secondary to dilutional versus anticoagulant use - 1 unit PRBC given - Hold DVT prophylaxis - Monitor H&H INFECTIOUS DISEASE: 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 Diabetic foot ulcer of right great toe Possible Prostatic abscess Acute Complicated cystitis Acute proctitis - Blood culture on 0 10/11/2024 demonstrated no growth in 24 hours of incubation - Continue IV ceftaroline and daptomycin DIET: Tube feeding DVT prophylax: SCD GI prophylaxis: Protonix Bowel regimen: Lactulose Code status: Full code LINES/DRAINS/ACCESS: ETT: Intubated on 10/10/2024 IV access: Right IJ placed on 10/10/24 Drips: Levophed, Versed, fentanyl Kan catheter: Placed on 10/02/2024 DISPOSITION: ICU Patient's status discussed with narinder care professional time spent more than 81 minutes, including patient care, chart review, and updating the family. Excluding any procedures. Case discussed with Dr. Galeano Plan discussed with: Other (Narinder RN) My Orders My Orders Orders - GAURI IGNACIO Procedure Category Date Status Time Pantoprazole PHA 10/14/24 In Process (Protonix) 10:00 Bilat Low Ext Art US 10/14/24 Resulted Duplex 09:14 Kub Abdomen Single XY 10/14/24 Resulted View 10:35 Lactulose Oral PHA 10/15/24 In Process 10:00 Dietary Evaluation Review Comments: 1) Add cardiac restriction to 60g CCHO diet 2) Initiate Glucerna qd. Encourage optimal PO intake 3) Follow-up with urology and surgery 4) Follow-up with social media campaign manager r/t methamphetamine abuse 5) Continue to monitor I&O, labs, and skin integrity Expected Outcomes/Goals: 1) appetite and labs to improve 2) wound to improve 3) f/u in 3-5 days Date of Service: Oct 14, 2024 Billing Provider: DEE DEE GALEANO MD Common Visit Codes: 17483-[id number] CARE 30-74 MIN, [id number] CARE-EACH +30MIN GAURI IGNACIO RESIDENT Oct 14, 2024 17:53 DEE DEE GALEANO MD Oct 15, 2024 13:11
[2024-10-14 18:01] LABS: Protein, Urine 219.0 mg/dL (1-14)
[2024-10-14] MEDS: MAGNESIUM SULFATE 1GM/100ML 100 ML IV ONE (18:51)
[2024-10-14 23:10] LABS: Protein, Urine 158.7 mg/dL (1-14)
[2024-10-14 23:19] LABS: Urine Budding Yeast LOADED /hpf (None Seen); Urine Hyphae Yeast PRESENT /hpf; Urine Protein, UAD 1+ (Negative)
[2024-10-15] VITALS (101 sets, daily range): BP systolic 15–141; BP diastolic 58–90; PULSE 82–107; RESP 20–28; TEMP 96.9–98.8; O2SAT 96–100
[2024-10-15 04:26] LABS: Nucleated Red Blood Cells % 0.1 %
[2024-10-15 04:28] LABS: Anion Gap 10 (5-15); Potassium 4.2 mmol/L (3.5-5.1); Sodium 141 mmol/L (136-145)
[2024-10-15 04:32] LABS: Hematocrit 25.3 % (41.0-53.0); Hemoglobin 8.3 g/dL (13.5-17.5); Mean Corpuscular Hemoglobin 27.6 pg (28.0-32.0); Mean Corpuscular Volume 84.3 fL (80.0-100.0)
[2024-10-15 04:34] LABS: BUN/Creatinine Ratio 14.7 (10.0-20.0)
[2024-10-15 04:55] LABS: Blood Urea Nitrogen 42 mg/dL (9-23); Calcium 7.0 mg/dL (8.7-10.4); Carbon Dioxide 18 mmol/L (20-31); Chloride 113 mmol/L (98-107); Glucose 136 mg/dL (74-106)
--- NOTE | 2024-10-15 07:11 | DVH ---
CHEST RADIOGRAPH Indication: Mechanical ventilation Technique: Single frontal view of the chest was obtained Comparison: XY CHEST XRAY 1 VIEW on DOS: 10/14/24 FINDINGS: Lines and Tubes: The endotracheal tube terminates 6.2 cm above the gallo. There is a right central venous catheter with the tip terminating in the superior vena cava. The enteric tube courses below th e left hemidiaphragm and the tip extends outside the field of view. Lungs: Patchy bilateral airspace disease. Pleura: No effusion. No pneumothorax. Cardiomediastinal contours: Unremarkable Bones: No acute osseous abnormality. IMPRESSION: 1. Support tubes as described. 2. Multifocal airspace disease.
[2024-10-15 07:16] LABS: Base Excess -9.3 mmol/L (-2.0-3.0)
[2024-10-15 09:22] LABS: INR 1.26 (0.9-1.15); Partial Thromboplastin Time 36.6 SEC (24.5-34.5); Prothrombin Time 13.1 sec (9.3-11.8)
[2024-10-15] MEDS ORDERED: LACTULOSE 20Gm/30ML SOLN PO SCH (10:00)
[2024-10-15] MEDS: LACTULOSE 20Gm/30ML SOLN PO SCH (10:00)
[2024-10-15] MEDS ORDERED: fentaNYL CITRATE 100 MCG/2 ML VL ONE (10:13)
[2024-10-15] MEDS ORDERED: SODIUM CHLORIDE LOCK 10 ML ONE (10:14)
[2024-10-15] MEDS ORDERED: MIDAZOLAM HCL 2MG/2ML 2ml VIAL (1mg/ml) ONE (10:14)
[2024-10-15 10:40] LABS: Base Excess -10.4 mmol/L (-2.0-3.0)
--- NOTE | 2024-10-15 10:41 | DVHPN2 ---
Progress Note - Dictate Date Seen: Oct 15, 2024 Medical Necessity Reason Pt with a Central, PICC or Fol: No Subjective Mr. Velazquez is a 39 years old gentleman with a history of diabetes, GERD, bipolar disorder, schizophrenia, chronic diabetic ulcer, he was brought to the [facility] on 10/02/2024 with a chief company of fever, the patient is also noticed to have altered mental status, in the CT brain scan showed evidence suggestive of left MCA territory acute stroke. Because of fever, worsening mental status, that is was intubated and transferred to ICU on 10/10/24 I have seen and examined the patient, talked to his nurse, intubated, sedated, responsive to strong painful stimuli, The case discussed with weatherization coordinator Levo 2 mcg/minute, Versed 1 mg/hour, fentanyl 200 mcg/hour Blood culture, 10/02/2024: MRSA Blood culture, 10/03/2024: MRSA Blood culture, 10/04/2024: MRSA UDS, 10/03/2024: Ms. Ocampo, 09/3124: Negative Urinalysis, 10/02/2024: WBC: 30, urine leukocyte esterase: Trace WBC/HB/PLT/MCV, 10/06/2024: 5/8.7/130/82.4, 10/10/2024: 6.5/8.1/211/84.5, , 10/11/2024: 6.1/7.5/176/85.9 PTT/INR/eight six, 10/02/2024: 12.3/1.18/34.4 Na, 10/07/2024: 144 10/10/2024: 151, 10/11/2024: 148 CMP, 10/05/2024: Unremarkable BUN/CR, 10/10/2024: 22/0.96, 10/11/2024: 32/1.94 GFR, 10/10/2024: 102, 10/11/2024: 44 Liver function tests, 10/11/2024: Unremarkable HGB A1c, 05/10/2023: >14 TG/HDL/LDL/HDL, 10/07/2024: 153/87/39/9 TIM, 10/14/2024: Left Ventricle: Normal LV size and function, LVEF estimated at 60% Right Ventricle: NOrmal RV size and function Left atrium: normal Right atrium: normal RA Left atrial appendage: no thrombus noted, d Aortic valve: trileaflet valve, no severe or AI Mitral Valve: structurally normal, anterior leaflet has 0. 8 cm vegetation with stalk . 0.8 x 0.4 cm, no significant MR is noted however, no abscess noted Tricuspid Valve: mild tricuspid regurgitaiton, no TS Pulmonic Valve: structurally normal, no severe PIor PS Interatrial septum: negative color flow for R to L shunt, negative bubble study Ascending aorta: no severe plaquing Echocardiogram, 10/06/2024: Technically good study. Off axis views. Limited views obtained. There appears to be biatrial enlargement and LV enlargement. Mild aortic root enlargement. Valves appear to be structurally normal. Left ventricular function is borderline at 45 to 50% anteroseptal hypokinesis.. Normal RV function. Mild TR. No pericardial effusion masses or vegetations. CT head, 10/05/2024: Acute left MCA territory infarct in left insula/temporal operculum/temporal lobe. No hemorrhage or mass effect Sedated, 10/09/2024: 1. Interval progression in evolution of left middle cerebral artery territory infarct involving the insula / temporal are operculum/ temporal lobe with associated loss of khoury-white matter differentiation and progressively diminished parenchymal attenuation. 2. No evidence of intracranial hemorrhage, mass effect, midline shift or herniation. 3. Chronic sequelae of microangiopathy and atrophic cortical volume loss. CT abdomen/pelvis, 10/06/2024: 1. Trace bilateral pleural effusions with adjacent atelectasis and patchy posterior bibasilar pulmonary infiltrate. 2. Hepatomegaly. 3. Excess retained colorectal stool and moderate proximal mechanical small-bowel obstruction. 4. Moderate gas and Kan catheter within the urinary bladder CTA head, neck, 10/05/2024: 1. No evidence of acute intracranial hemorrhage, mass effect or hydrocephalus. 2. No evidence of hemodynamically significant intracranial stenosis, proximal occlusion or aneurysm. 3. No evidence of hemodynamically significant cervical stenosis or dissection vital signs Vital Sign Date Time Temp Pulse Resp B/P (MAP) Pulse Ox O2 Delivery O2 Flow Rate FiO2 10/15/24 10:02 132/80 10/15/24 09:41 96 20 100 30 10/15/24 08:00 Mechanical Ventilator+ 10/15/24 04:00 97.8 97.8 10/14/24 20:00 0 Total Intake and Output 10/14/24 10/14/24 10/15/24 15:00 23:00 07:00 Intake Total 1434.00 ml 1434.00 ml 1404.00 ml Output Total 125 ml 225 ml Balance 1434.00 ml 1309.00 ml 1179.00 ml medications Current Medications Medications Dose Ordered Sig/Dion Route Start Time Stop Time Status Last Admin Dose Admin Enoxaparin Sodium 40 mg DAILY SC 10/07/24 10:00 10/13/24 10:44 40 MG Acetaminophen 650 mg Q6HP PRN FL 10/10/24 10:00 10/10/24 15:18 650 MG Midazolam HCl 50 ml @ 1 mls/hr Q24H IV 10/10/24 17:15 10/15/24 10:02 6 MLS/HR Fentanyl Citrate 250 ml @ 2.5 mls/hr Q24H IV 10/10/24 17:15 10/15/24 06:16 20 MLS/HR Propofol 100 ml @ 2.496 mls/ hr Q24H IV 10/10/24 17:15 Norepinephrine Bitartrate 250 ml @ 3.75 mls/hr Q24H IV 10/10/24 17:45 10/15/24 04:04 3.75 MLS/HR Diagnostic Test (Pha) 1 strip Q6HR 10/11/24 00:00 10/15/24 06:01 1 STRIP Insulin Human Regular FOLLOW SLIDING SCALE Q6HR SC 10/11/24 00:00 10/15/24 06:08 2 UNITS Dextrose 50 ml UD IV 10/10/24 22:00 Amino Acids 0 ml @ 0 mls/hr PER PHARMACY IV 10/10/24 19:00 UNV Aspirin 81 mg DAILY PO 10/11/24 10:00 10/14/24 10:21 81 MG Enteral Nutritional Formula 1,000 ml 40ML/HR GT 10/10/24 21:15 10/14/24 21:21 1,000 ML Bumetanide 12.5 mg/Miscellaneous 50 ml @ 2 mls/hr Q24H IV 10/13/24 09:15 10/14/24 21:26 2 MLS/HR Ceftaroline Fosamil 400 mg/ Sodium Chloride 250 ml @ 250 mls/hr Q12HR IV 10/13/24 22:00 10/15/24 10:20 250 MLS/HR Daptomycin 750 mg/ Sodium Chloride 50 ml @ 100 mls/hr DAILY IV 10/14/24 10:00 10/14/24 10:00 100 MLS/HR Pantoprazole Sodium 40 mg DAILY IV 10/14/24 10:00 10/15/24 10:02 40 MG Sodium Chloride 1,000 ml @ 100 mls/hr Q10H IV 10/14/24 10:00 10/15/24 06:18 100 MLS/HR Lactulose 30 ml BID PO 10/15/24 09:00 10/15/24 10:01 30 ML objective General: the patient is well developed and nourished. No acute distress. Intubated MUSCULOSKELETAL EXAM: Chronic ulcer in the right big toe, a small skin lesion in the left big toe MENTAL STATUS: Subjective SPEECH, LANGUAGE, HIGHER CORTICAL FUNCTION: Subjective CRANIAL NERVES: Pupils are equal, round and reactive. There is doll's eye, corneal reflexes. No sign of facial weakness. He has gag reflexes SENSATION: Responsive to stroke painful stimuli MOTOR: Muscle tone feels normal, no spontaneous extremity movement REFLEXES: Deep tendon reflexes feel symmetrical. No pathological reflexes. CEREBELLAR/COORDINATION: Deferred GAIT/STATION: deferred laboratory and microbiology Laboratory Tests 10/15/24 03:45 Test 10/15/24 03:45 Range/Units Serum Glucose 136 H 74-106 mg/dL Problem List Altered mental status, secondary to Acute stroke Metabolic encephalopathy Rule out intracranial infection Acute respiratory failure Abnormal CT head Acute stroke Rule out encephalitis Prostatic abscess vs hematoma Rule out endocarditis Sepsis with MRSA Chronic diabetic wound Endocarditis History of substance abuse Assessment/Plan Monitoring Supportive treatment ICU care Follow up blood tests LP with CSF profile TIM Will try the MRI again MR head Stabilize vitals Respiratory support/vent management Aspirin 81 mg daily/ASA 300 mg suppository D/C Lipitor 20 mg daily (LDL: 39) IV antibiotics Haldol p.r.n. for agitation Infectious disease on case Need to quit substance abuse Okay to have lumbar puncture from neurologic point of view More recommendation per clinical course This medical document was created using an electronic medical record system with [employer] dictation system. Although this document has been carefully reviewed, there may still be some phonetic and typographical errors. These areas are purely typographical due to imperfections of the software programs, and do not reflect any compromise in the patient's medical care. Prognosis guarded Dietary Evaluation Review Comments: 1) Add cardiac restriction to 60g CCHO diet 2) Initiate Glucerna qd. Encourage optimal PO intake 3) Follow-up with urology and surgery 4) Follow-up with social director r/t methamphetamine abuse 5) Continue to monitor I&O, labs, and skin integrity Expected Outcomes/Goals: 1) appetite and labs to improve 2) wound to improve 3) f/u in 3-5 days Plan discussed with: Other CALEB PAYNE MD Oct 15, 2024 10:41
--- NOTE | 2024-10-15 11:00 | DVHPN2 ---
Subjective The patient is a 39-year-old male with past medical history of diabetes mellitus, MRSA of the urine, hyperlipidemia, and methamphetamine abuse presented to [facility] ED with complaint of fever. Patient reports he has been experiencing fever, associated with generalized weakness, abdominal pain, presents with Kan catheter in place due to recent prostate surgery. Patient was seen and evaluated in the ED, laboratory data shows WBC 6.1, hemoglobin 9.5, hematocrit 28.7, platelets 203, sodium 130, potassium 4.0, BUN 23, creatinine 1.12, glucose 382, calcium 8.5, albumin 3.1, blood pressure 110/70, heart rate 136 trending down to 96, temperature 103.2 F trending down to 97.6 F, O2 saturation 95% on room air. Abdomen/pelvis CT revealing evidence of left sacroiliitis with gas and fluid extending into left pelvic muscles likely representing abscess; rectal wall thickening correlate for symptoms of proctitis; Kan catheter decompressed urinary bladder with wall thickening; hypodense appearance of the mildly enlarged prostate, cystitis and prostatitis or possible. Patient was started on IV antibiotic regimen vancomycin, please see medication orders section in the computer. On my assessment, patient denied chest pain, no headache, no dizziness, no diaphoresis, no shortness of breaths, no nausea, no vomiting, no fever, no chills. Patient was admitted for further evaluation and medical management. Reviewed: Care Plan Changes from previous H/P or p: No Changes General: Per HPI Eyes: No Pain, No Vision change, No Conjunctivae inflammation, No Eyelid inflammation, No Other, No Redness ENT: No Ear pain, No Ear discharge, No Nose pain, No Nose discharge, No Nose congestion, No Mouth pain, No Mouth swelling, No Throat pain, No Throat swelling, No Other Cardiovascular: No Chest Pain, No Palpitations, No Orthopnea, No Paroxysmal Noc. Dyspnea, No Edema, No Lt Headedness, No Other Respiratory: No Cough, No Dry, No Shortness of breath, No SOB with excertion, No Wheezing, No Hemoptysis, No Pleuritic Pain, No Sputum, No Other Gastrointestinal: No Nausea, No Vomiting; Abdominal Pain; No Diarrhea, No Constipation, No Melena, No Hematochezia, No Other Genitourinary: No Dysuria, No Frequency, No Incontinence, No Hematuria, No Retention; Other (Kan catheter in place) Musculoskeletal: No other, No neck pain, No shoulder pain, No arm pain, No back pain, No hand pain, No leg pain, No foot pain Skin: No Rash, No Lesions, No Jaundice, No Bruising, No Other Objective Vitals Vital Signs Date Time Temp Pulse Resp B/P (MAP) Pulse Ox O2 Delivery O2 Flow Rate FiO2 10/15/24 10:02 132/80 10/15/24 09:41 96 20 100 30 10/15/24 08:00 Mechanical Ventilator+ 10/15/24 04:00 97.8 97.8 10/14/24 20:00 0 Intake/Output Intake and Output 10/15/24 07:00 Intake Total 4272.00 ml Output Total 350 ml Balance 3922.00 ml Intake Oral 30 ml IV Total 3462.00 ml Tube Feeding 100 ml Blood Product 300 ml Other 380 ml Output Urine Total 350 ml Exam Dermatological: Skin is dry with mild erythema and some maceration around the wound site No gross deformities noted Mild non-pitting edema present bilaterally Wound: Location: Right plantar hallux. Measures: 2 cm in length, 1 cm in width, and 1 cm in depth. Depth: Full thickness Base: Mix of granulation/slough Drainage: Yes Odor: Yes Periwound: Intact Vascular: Dorsalis pedis and posterior tibial pulses are 1+ bilaterally Capillary refill is under 2 seconds Skin temperature is warm bilaterally Neurologic: Protective sensation is absent on the plantar forefoot bilaterally Monofilament testing reveals decreased sensation in multiple plantar sites Musculoskeletal: Range of motion at the ankle and MTP joints is within normal limits. Strength is 5/5 in all tested muscle groups. Gait is antalgic due to offloading of the affected limb. Medications Current Medications Medications Dose Ordered Sig/Dion Route Start Time Stop Time Status Last Admin Dose Admin Enoxaparin Sodium 40 mg DAILY SC 10/07/24 10:00 10/13/24 10:44 40 MG Acetaminophen 650 mg Q6HP PRN [place] 10/10/24 10:00 10/10/24 15:18 650 MG Midazolam HCl 50 ml @ 1 mls/hr Q24H IV 10/10/24 17:15 10/15/24 10:02 6 MLS/HR Fentanyl Citrate 250 ml @ 2.5 mls/hr Q24H IV 10/10/24 17:15 10/15/24 06:16 20 MLS/HR Propofol 100 ml @ 2.496 mls/ hr Q24H IV 10/10/24 17:15 Norepinephrine Bitartrate 250 ml @ 3.75 mls/hr Q24H IV 10/10/24 17:45 10/15/24 04:04 3.75 MLS/HR Diagnostic Test (Pha) 1 strip Q6HR 10/11/24 00:00 10/15/24 06:01 1 STRIP Insulin Human Regular FOLLOW SLIDING SCALE Q6HR SC 10/11/24 00:00 10/15/24 06:08 2 UNITS Dextrose 50 ml UD IV 10/10/24 22:00 Amino Acids 0 ml @ 0 mls/hr PER PHARMACY IV 10/10/24 19:00 UNV Aspirin 81 mg DAILY PO 10/11/24 10:00 10/14/24 10:21 81 MG Enteral Nutritional Formula 1,000 ml 40ML/HR GT 10/10/24 21:15 10/14/24 21:21 1,000 ML Bumetanide 12.5 mg/Miscellaneous 50 ml @ 2 mls/hr Q24H IV 10/13/24 09:15 10/14/24 21:26 2 MLS/HR Ceftaroline Fosamil 400 mg/ Sodium Chloride 250 ml @ 250 mls/hr Q12HR IV 10/13/24 22:00 10/15/24 10:20 250 MLS/HR Daptomycin 750 mg/ Sodium Chloride 50 ml @ 100 mls/hr DAILY IV 10/14/24 10:00 10/14/24 10:00 100 MLS/HR Pantoprazole Sodium 40 mg DAILY IV 10/14/24 10:00 10/15/24 10:02 40 MG Sodium Chloride 1,000 ml @ 100 mls/hr Q10H IV 10/14/24 10:00 10/15/24 06:18 100 MLS/HR Lactulose 30 ml BID PO 10/15/24 09:00 10/15/24 10:01 30 ML Laboratory Results Laboratory Tests 10/15/24 03:45 Chemistry Test 10/15/24 03:45 Calcium Level 7.0 mg/dL (8.7-10.4) L Coagulation Test 10/15/24 08:34 Prothrombin Time 13.1 sec (9.3-11.8) H Prothrombin Time INR 1.26 (0.9-1.15) H Activated Partial Thromboplast Time 36.6 SEC (24.5-34.5) H Urinalysis Test 10/14/24 10:42 10/14/24 22:10 Urine Sodium 21 mmol/L (40-220) L Urine Color Light-orange (Yellow) Urine Clarity Ex.turbid (Clear) Urine pH 5.0 (5.0-9.0) Urine Specific [place] 1.017 (1.001-1.035) Urine Protein 1+ (Negative) H Urine Ketones Negative (Negative) Urine Blood 2+ /uL (Negative) H Urine Nitrite Negative (Negative) Urine Bilirubin Negative (Negative) Urine Urobilinogen Normal mg/dL (Negative) Urine Leukocyte Esterase 3+ /uL (Negative) Urine RBC 416 /hpf (0 - 3) Urine Microscopic WBC 354 /HPF (0-3) H Urine Squamous Epithelial Cells None seen /hpf (<5) Urine Bacteria Mod /hpf (None Seen) H Urine Hyaline Casts Many /lpf (0 - 2) Urine Mucus Few (None Seen) Urine Yeast with Hyphae Present /hpf Urine Yeast (Budding) Loaded /hpf (None Seen) Urine Creatinine 168.66 mg/dL (30.0-125.0) H Urine Protein/Creatinine Ratio 0.94 Urine Glucose Normal mg/dL (Normal) Urine Total Protein 158.7 mg/dL (1-14) H Blood Gas Results Test 10/15/24 06:42 10/15/24 10:33 Arterial Blood pH 7.282 (7.350-7.450) 7.295 (7.350-7.450) FiO2 % 30.0 30.0 Microbiology Microbiology Date/Time Source Procedure Growth Status 10/11/24 21:30 Blood Blood Culture - Preliminary NO GROWTH AFTER 72 HOURS OF INCUBATION. Resulted 10/10/24 16:45 Sputum Expectorated Sputum Gram Stain - Final Complete 10/10/24 16:45 Sputum Expectorated Sputum Respiratory Culture - Final Complete 10/03/24 00:00 Toe Gram Stain - Final Complete 10/03/24 00:00 Wound Culture - Final Methicillin Resistant S.aureus Enterococcus faecalis Complete Assessment/Plan Assessment/Plan ASSESSMENT: Patient is a 39 year old seen on the floor for a worsening ulcer PLAN: - The patients chart was reviewed, clinical findings were discussed with the patient, the etiologies of the conditions were discussed in detail, and a treatment plan was agreed to at this time, with both oral and written instructions provided. - reviewed advanced imaging - discussed plan is to perform an incision and drainage - patient has been NPO since midnight - take him to the OR today - we will get cultures in the OR All questions were answered and concerns addressed to the patient's satisfaction. The patient was given the phone number to the clinic and was told how to make contact with the clinic should any concerns or questions arise. Patient understands that if any questions or concerns arise prior to the next appointment, we should be contacted immediately. FOLLOW-UP: Continue to follow while inpatient Plan discussed with: Patient My Orders Orders - JAKY BLANC DPM Procedure Category Date Status Time Npo (Nothing By DIET 10/15/24 Transmitted Mouth) Diet Breakfast Obtain Consent For: ORDERS 10/14/24 Transmitted 13:18 Problem List: (1) Hyponatremia (2) Sepsis, unspecified organism (3) Abdominal abscess (4) Anemia (5) UTI (urinary tract infection) (6) Sepsis (7) Methamphetamine abuse (8) Prostatic abscess (9) Methamphetamine abuse (10) Osteomyelitis of toe of right foot (11) Bacteremia due to methicillin resistant Staphylococcus aureus (12) Dehydration (13) Acute epididymitis (14) Substance abuse (15) Acute abdominal pain (16) Anxiety (17) Hyperglycemia (18) Prostatitis (19) Vomiting (20) DKA (diabetic ketoacidosis) (21) Leukocytosis, unspecified (22) Fractured toe (23) Abscess of right foot (24) Abscess of left foot (25) Cellulitis of toe of right foot (26) Type 2 diabetes mellitus with hyperglycemia (27) Cellulitis of left lower leg (28) ABSCESS LEFT INNER ARM I & D Visit Coding Podiatry Date of Service if different f: Oct 15, 2024 Billing Provider: JAKY BLANC DPM Podiatry Common Visit Codes: [id number] INP/OBS CARE(HIGH) JAKY BLANC DPM Oct 15, 2024 11:00
--- NOTE | 2024-10-15 11:38 | DVHOP2 ---
Operative Report - 2 Report Details Date: 10/15/24 Preop Diagnosis: 1. Right hallux osteomyelitis 2. Right hallux abscess 3. Right hallux cellulitis 4. Right hallux chronic osteomyelitis Postop Diagnosis: Same as preop Surgeon: Jaky Blanc MD Anesthesiologist: See anesthesia Anesthesia: General Consent: The patient was informed of the risks and benefits of the procedure. These include but are not limited to complications of anesthesia, postoperative infection, incomplete relief of symptoms, recurrence of symptoms, damage to blood vessels, nerves and tendons, deep venous thrombosis, pulmonary embolism and possible need for repeat surgery in the future. Complications: None Estimated Blood Loss: Minimal Fluids: See anesthesia Findings: Consistent with diagnosis Indications for Surgery: Worsening ulcer with bacteremia Name of Procedure Performed 1. Right hallux I&D (67157) 2. Right hallux bone biopsy () 3. Right hallux partial excision proximal phalanx (60516) 4. Right hallux rotational flap (26439) 5. Right hallux delayed closure (77068) Procedure Details Procedure Details: PRE-PROCEDURE INFORMATION: In the pre-op holding area, the extremity to be operated on was clearly marked and the patient verified correct laterality of the marking. The patient was transferred to the OR table and placed in a supine position. A timeout was performed in which identification of the correct patient, procedure, location, and materials was done. The right foot and leg were prepped and draped in normal sterile fashion. DESCRIPTION OF PROCEDURE: Attention was directed to the right hallux where area of fluctuance was noted. An incision was made over this area and was deepened t hrough blunt dissection. The incision was deepened to the level of abscess and bone. Care was taken to the dissection to avoid any neurovascular and tendinous structures. The incision was deepened to the bone, and the abscess appeared to be purulent fluid consistent with pus. The cortices of the bone was then removed with rongeur an all necrotic tissue. After the abscess was drained, the area was irrigated with 3 L normal saline using cysto tubing. Deep cultures were then obtained from the wound. The area was then inspected and any areas of tracking, especially along the tendons were also drained. Using a rongeur, excision of the proximal phalanx of the apparent necrotic bone was performed. A bone biopsy was then taken of the right hallux which was deepened to the muscle belly and tendons. The bone was then sent to pathology to determine the extent of osteomyelitis. Due to the soft tissue deficit, rotational advancement flap was designed medially to laterally and elevated preserving vascularity. A delayed closure was then performed using 2-0 nylon after was deemed appropriate with no longer concern for infection. POSTOPERATIVE INFORMATION: The patient tolerated the above noted procedure and anesthesia well and was transferred to the PACU with vital signs stable, and vascular status intact with capillary refill intact to all digits. Deep cultures were taken. Bone biopsy was sent off. Closure was performed. Dressings to stay in intact in the saturated. If dressing and saturated, Betadine gauze Kerlix Thor. Specimen: RIGHT HALLUX Condition Good Disposition Still a Patient Visit Coding Podiatry Date of Service if different f: Oct 15, 2024 Billing Provider: JAKY BLANC DPM Podiatry Common Visit Codes: PROCEDURE ONLY JAKY BLANC DPM Oct 15, 2024 11:38
--- NOTE | 2024-10-15 12:25 | MEDREC ---
[facility] Intervention Section I [facility] Intervention: Review courses of therapy (May consider changing Ceftaroline 400mg Q12H to Q8H for the treatment of MRSA bloodstream infections and respect to renal function if/when clinically appropriate.) [facility] RESIDENT Oct 15, 2024 12:25
[2024-10-15] MEDS: VANCOMYCIN HCL 1000 MG VL ONE (12:59)
[2024-10-15] MEDS: BUPIVACAINE 0.5% P/F INJ 10 ML VIAL ONE (12:59)
[2024-10-15] MEDS: BUMETANIDE INJECTION 12.5 MG in GIVE UN-DILUTED 0 ML IV SCH (13:00)
--- NOTE | 2024-10-15 13:23 | DVHPN2 ---
Progress Note Date Seen: Oct 15, 2024 Medical Necessity Reason Pt with a Central, PICC or Fol: No Subjective Review of Systems: RESPIRATORY:Abnormal Other Systems: Patient seen and examined by myself today in follow-up, patient remained intubated on ventilator Objective vital signs Vital Sign Date Time Temp Pulse Resp B/P (MAP) Pulse Ox O2 Delivery O2 Flow Rate FiO2 10/15/24 12:15 92 24 122/78 (93) 100 10/15/24 12:00 96.9 96.9 10/15/24 12:00 Mechanical Ventilator+ 30 30 10/14/24 20:00 0 Total Intake and Output 10/14/24 10/14/24 10/15/24 15:00 23:00 07:00 Intake Total 1434.00 ml 1434.00 ml 1404.00 ml Output Total 125 ml 225 ml Balance 1434.00 ml 1309.00 ml 1179.00 ml medications Current Medications Medications Dose Ordered Sig/Dion Route Start Time Stop Time Status Last Admin Dose Admin Enoxaparin Sodium 40 mg DAILY SC 10/07/24 10:00 10/13/24 10:44 40 MG Acetaminophen 650 mg Q6HP PRN MN 10/10/24 10:00 10/10/24 15:18 650 MG Midazolam HCl 50 ml @ 1 mls/hr Q24H IV 10/10/24 17:15 10/15/24 10:02 6 MLS/HR Fentanyl Citrate 250 ml @ 2.5 mls/hr Q24H IV 10/10/24 17:15 10/15/24 06:16 20 MLS/HR Propofol 100 ml @ 2.496 mls/ hr Q24H IV 10/10/24 17:15 Norepinephrine Bitartrate 250 ml @ 3.75 mls/hr Q24H IV 10/10/24 17:45 10/15/24 04:04 3.75 MLS/HR Diagnostic Test (Pha) 1 strip Q6HR 10/11/24 00:00 10/15/24 11:10 1 STRIP Insulin Human Regular FOLLOW SLIDING SCALE Q6HR SC 10/11/24 00:00 10/15/24 06:08 2 UNITS Dextrose 50 ml UD IV 10/10/24 22:00 Amino Acids 0 ml @ 0 mls/hr PER PHARMACY IV 10/10/24 19:00 UNV Aspirin 81 mg DAILY PO 10/11/24 10:00 10/14/24 10:21 81 MG Enteral Nutritional Formula 1,000 ml 40ML/HR GT 10/10/24 21:15 10/14/24 21:21 1,000 ML Daptomycin 750 mg/ Sodium Chloride 50 ml @ 100 mls/hr DAILY IV 10/14/24 10:00 10/15/24 12:02 100 MLS/HR Pantoprazole Sodium 40 mg DAILY IV 10/14/24 10:00 10/15/24 10:02 40 MG Lactulose 30 ml BID PO 10/15/24 09:00 10/15/24 10:01 30 ML Bumetanide 12.5 mg/Miscellaneous 50 ml @ 4 mls/hr [id number] IV 10/15/24 13:00 UNV Sodium Bicarbonate 75 ml/ Dextrose 1,075 ml @ 100 mls/hr [id number] IV 10/15/24 13:00 UNV Ceftaroline Fosamil 400 mg/ Sodium Chloride 250 ml @ 250 mls/hr Q8H IV 10/15/24 18:00 Examination: LUNGS:Normal, CVS:Normal, MSK:Abnormal laboratory and microbiology Laboratory Tests 10/15/24 03:45 Test 10/15/24 03:45 Range/Units Serum Glucose 136 H 74-106 mg/dL Microbiology Date/Time Source Procedure Growth Status 10/11/24 21:30 Blood Blood Culture - Preliminary NO GROWTH AFTER 72 HOURS OF INCUBATION. Resulted 10/10/24 16:45 Sputum Expectorated Sputum Gram Stain - Final Complete 10/10/24 16:45 Sputum Expectorated Sputum Respiratory Culture - Final Complete 10/03/24 00:00 Toe Gram Stain - Final Complete 10/03/24 00:00 Wound Culture - Final Methicillin Resistant S.aureus Enterococcus faecalis Complete Problem List/Assessment/Plan Problem List/Assessment/Plan Acute kidney injury multifactorial hemodynamically mediated Acute respiratory failure, patient intubated on ventilator Vancomycin nephrotoxicity Septic shock Acute CVA MRSA bacteremia Bacterial endocarditis Lower extremity MRSA wound infection BPH status post TURP with indwelling Kan catheter d History of methamphetamine abuse Hypoalbuminemia Metabolic acidosis Hypernatremia due to insensible water loss Recommendations Kidney function slightly worsened today Decreased urine output Change IVF to D5W with 50 mEq sodium bicarb at 100 cc/hr Kan catheter Strict I&Os Discontinue vancomycin Check urine electrolytes and protein excretion Albumin 25% IV piggyback ^Bumex IV 1 milligram/hour to increased urine output IV pressors for blood pressure support We will continue to follow up and check closely for need for hemodialysis Plan discussed with: Other (Nurse) My Orders My Orders Orders - NATHALIA JOSEPH MD Procedure Category Date Status Time Give Un-Diluted PHA 10/15/24 Logged (Gi... W/Bumetanide 13:00 D5w 5% (Dextrose 5%) PHA 10/15/24 Logged W/Sodium Bicarb 50m 13:00 Dietary Evaluation Review Comments: 1) Add cardiac restriction to 60g CCHO diet 2) Initiate Glucerna qd. Encourage optimal PO intake 3) Follow-up with urology and surgery 4) Follow-up with social sciences research scientist r/t methamphetamine abuse 5) Continue to monitor I&O, labs, and skin integrity Expected Outcomes/Goals: 1) appetite and labs to improve 2) wound to improve 3) f/u in 3-5 days NATHALIA JOSEPH MD Oct 15, 2024 13:23
--- NOTE | 2024-10-15 15:42 | DVHPN2 ---
Consult Progress Note Date Seen: Oct 15, 2024 Subjective Other Systems: No overnight cardiac events reported Objective vital signs Vital Sign Date Time Temp Pulse Resp B/P (MAP) Pulse Ox O2 Delivery O2 Flow Rate FiO2 10/15/24 14:45 94 24 126/77 (93) 98 10/15/24 14:00 Mechanical Ventilator+ 30 30 10/15/24 13:45 97.4 97.4 10/14/24 20:00 0 Total Intake and Output 10/14/24 10/14/24 10/15/24 15:00 23:00 07:00 Intake Total 1434.00 ml 1434.00 ml 1404.00 ml Output Total 125 ml 225 ml Balance 1434.00 ml 1309.00 ml 1179.00 ml medications Current Medications Medications Dose Ordered Sig/Dion Route Start Time Stop Time Status Last Admin Dose Admin Enoxaparin Sodium 40 mg DAILY SC 10/07/24 10:00 10/13/24 10:44 40 MG Acetaminophen 650 mg Q6HP PRN DE 10/10/24 10:00 10/10/24 15:18 650 MG Midazolam HCl 50 ml @ 1 mls/hr Q24H IV 10/10/24 17:15 10/15/24 10:02 6 MLS/HR Fentanyl Citrate 250 ml @ 2.5 mls/hr Q24H IV 10/10/24 17:15 10/15/24 06:16 20 MLS/HR Propofol 100 ml @ 2.496 mls/ hr Q24H IV 10/10/24 17:15 Norepinephrine Bitartrate 250 ml @ 3.75 mls/hr Q24H IV 10/10/24 17:45 10/15/24 04:04 3.75 MLS/HR Diagnostic Test (Pha) 1 strip Q6HR 10/11/24 00:00 10/15/24 11:10 1 STRIP Insulin Human Regular FOLLOW SLIDING SCALE Q6HR SC 10/11/24 00:00 10/15/24 06:08 2 UNITS Dextrose 50 ml UD IV 10/10/24 22:00 Amino Acids 0 ml @ 0 mls/hr PER PHARMACY IV 10/10/24 19:00 UNV Aspirin 81 mg DAILY PO 10/11/24 10:00 10/14/24 10:21 81 MG Enteral Nutritional Formula 1,000 ml 40ML/HR GT 10/10/24 21:15 10/14/24 21:21 1,000 ML Daptomycin 750 mg/ Sodium Chloride 50 ml @ 100 mls/hr DAILY IV 10/14/24 10:00 10/15/24 12:02 100 MLS/HR Pantoprazole Sodium 40 mg DAILY IV 10/14/24 10:00 10/15/24 10:02 40 MG Lactulose 30 ml BID PO 10/15/24 09:00 10/15/24 10:01 30 ML Bumetanide 12.5 mg/Miscellaneous 50 ml @ 4 mls/hr [id number] IV 10/15/24 13:00 Sodium Bicarbonate 75 ml/ Dextrose 1,075 ml @ 100 mls/hr [id number] IV 10/15/24 13:00 Ceftaroline Fosamil 400 mg/ Sodium Chloride 250 ml @ 250 mls/hr Q8H IV 10/15/24 18:00 Micafungin Sodium 100 mg/Sodium Chloride 100 ml @ 100 mls/hr DAILY IV 10/16/24 10:00 Examination: GENERAL:Abnormal, LUNGS:Abnormal, CVS:Abnormal, NEURO:Abnormal laboratory and microbiology Laboratory Tests 10/15/24 03:45 Test 10/15/24 03:45 Range/Units Serum Glucose 136 H 74-106 mg/dL Problem List/Assessment/Plan Problem List/Assessment/Plan Persistent bacteremia with 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 Casiano) Transesophageal echocardiogram revealed subacute mitral valve endocarditis to the anterior left lead and no significant mitral regurgitation noted. In the meantime, continue Infectious Disease recommendations for ABX therapy. Currently on antiplatelet therapy per Neurology team. Continue DVT/VTE prophylaxis. Given downtrending H&H levels, DOAC therapy not indicated at this time for the treatment of cephalic vein thrombus. Initiate DOAC with stable H&H and no signs of bleeding. We will sign off at this time. Kindly re-consult if necessary. Thank you for allowing us to participate in this patient's care. Critical care time: 30 min. This medical document was created using an electronic medical record system with voice recognition software and computerized dictation system. Although this document has been carefully reviewed, there might still be some phonetic and typographical errors. Occasional wrong-word or ``sound-alike substitutions may have occurred due to the inherent limitations of voice recognition software. These areas are purely typographical due to imperfections of the software programs and do not reflect any compromise in the patient's medical care. Please read the chart carefully and recognize, using context, where these substitutions have occurred. Plan discussed with: Other Dietary Evaluation Review Comments: 1) Add cardiac restriction to 60g CCHO diet 2) Initiate Glucerna qd. Encourage optimal PO intake 3) Follow-up with urology and surgery 4) Follow-up with social work msw r/t methamphetamine abuse 5) Continue to monitor I&O, labs, and skin integrity Expected Outcomes/Goals: 1) appetite and labs to improve 2) wound to improve 3) f/u in 3-5 days Date of Service: Oct 15, 2024 Billing Provider: ARI WATKINS Cardiology Common Codes: 36634-[id number] CARE 30-74 MIN ARI WATKINS Oct 15, 2024 15:42
[2024-10-15] MEDS: MICAFUNGIN SODIUM 100 MG in SODIUM CHL 0.9% 100 ML IV ONE (15:47)
--- NOTE | 2024-10-15 15:55 | DVH ---
EXAM: MRI BRAIN HEAD WO CONTRAST INDICATION: Rule out embolic stroke. TECHNIQUE: Multiplanar, multisequence imaging of the brain without contrast. COMPARISON: CT HEAD WITHOUT CONTRAST on DOS: 10/10/24 FINDINGS: [PARENCHYMA]: Large area of diffusion restriction and associated T2/FLAIR hyperintensity along the le ft temporal lobe and additional scattered areas along the left centrum semiovale. No abnormal suscep tibility weighted artifact. Small punctate area of diffusion restriction along right posterior fronta l lobe to parietal lobe. [VENTRICLES]: No hydrocephalus. [EXTRA-AXIAL SPACES]: No extra-axial fluid collections. [FLOW VOIDS]: The flow voids are intact. [EXTRA-CRANIAL STRUCTURES]: The bony structures are intact. Scattered fluid along bilateral mastoid a ir cells. Mild scattered mucosal thickening along the paranasal sinuses. IMPRESSION: 1. Large area of diffusion restriction of the left posterior temporal lobe and left parietal lobe. 2. Small areas of punctate infarction along the right posterior frontal lobe to parietal lobe. 3. Imaging pattern may be compatible with embolic phenomenon
[2024-10-15] MEDS: SODIUM BICARB 50mEq/50ml Vial 75 ML in D5W 5% 1,000 ML IV SCH (15:57)
--- NOTE | 2024-10-15 17:08 | DVH ---
CHEST RADIOGRAPH Indication: OGT PLACEMENT Technique: XY CHEST PORTABLE COMPARISON: None FINDINGS: Endotracheal tube tip projects 6.6 cm with the gallo. Right IJ catheter tip projects ove r the SVC. The cardiac silhouette is unremarkable. The lungs demonstrate bilateral patchy airspace opacities. Th e pulmonary vasculature is prominent. Small to moderate left pleural effusion. There is no pneumothor ax. IMPRESSION: As above
[2024-10-15] MEDS: CEFTAROLINE IV SCH (17:42)
[2024-10-15] MEDS: SODIUM CHL 0.9% IV SCH (17:42)
--- NOTE | 2024-10-15 17:52 | DVHPNRES ---
Progress Note Date Seen: Oct 15, 2024 Resident Creating Document: GAURI IGNACIO RESIDENT Medical Necessity Reason Pt with a Central, PICC or Fol: No Subjective Review of Systems patient is a 39-year-old male with past medical history of diabetes mellitus, MRSA of the urine, hyperlipidemia, and methamphetamine abuse presented to [facility] ED with complaint of fever. Patient reports he has been experiencing fever, associated with generalized weakness, abdominal pain, presents with Kan catheter in place due to recent prostate surgery. Patient was seen and evaluated in the ED, laboratory data shows WBC 6.1, hemoglobin 9.5, hematocrit 28.7, platelets 203, sodium 130, potassium 4.0, BUN 23, creatinine 1.12, glucose 382, calcium 8.5, albumin 3.1, blood pressure 110/70, heart rate 136 trending down to 96, temperature 103.2 F trending down to 97.6 F, O2 saturation 95% on room air. Abdomen/pelvis CT revealing evidence of left sacroiliitis with gas and fluid extending into left pelvic muscles likely representing abscess; rectal wall thickening correlate for symptoms of proctitis; Kan catheter decompressed urinary bladder with wall thickening; hypodense appearance of the mildly enlarged prostate, cystitis and prostatitis or possible. Patient was started on IV antibiotic regimen vancomycin, 10/03: Patient has very high fevers up to 103, CT showing left sacroiliitis with gas fluid in 2 left pelvic muscles possible abscess. We will consult surgery. There is also proctitis and bladder wall thickening. We will continue broad- spectrum IV antibiotics. ?Concern of IVDU ,. Patient is tremulous mildly we will continue watching for alcohol withdrawal. We will monitor. We will need UDS. Significant hyperglycemia, diabetes likely complicating and/or causing wound/healing. Patient had recent prostate surgery and Urology consult placed. 10/04: DC patient's culture came VAC MRSA, already on vancomycin. Continue IV antibiotics. We will start Lantus 20 HS,. Continue present therapy 10/05: Patient appears altered today, had some visitors prior. Per RN patient has been normal for that. We will get stat CT, UDS and we will continue ongoing treatment and workup. Surgery and Urology both recommend continuing IV antibiotics, IR consult for possible drainage. Initial CT head negative, UDS negative. Patient continues to be confused had a fall. Repeating head CT again. Getting stat portable chest x-ray, repeat CBC CMP, TSH, ammonia, ABG stat, at sitter one-to-one, neurology consult for altered mental status 10/06: 2nd CT yesterday showed left MCA territory stroke. Patient's blood cultures continue to, with MRSA vanc sensitive. Continuing vanc. I am suspicious of endocarditis. We will get echocardiogram continue vanc. Not totally convinced of stroke causing confusion. Confusion/encephalopathy might be from sepsis, or other causes. We will hold off lumbar puncture right now and have follow up with Neurology to rule out meningitis/HSV encephalitis. Tomorrow we will get HIV/trapped antibody test. Start aspirin Plavix, statin, echo. 10/07: Echo is negative for vegetations, blood cultures were redrawn pending. Neurology agrees with LP. Neurology also agrees with ETHEL. Consult placed. Treponemal antibody/HIV pending. Yesterday we restarted patient's bipolar medication Abilify. Continuing vanc/ceftriaxone/metronidazole. Pending official DANDY TENDER, neurology is doing aspirin only, Plavix discontinued for cva, continue Lipitor... Using Haldol and Ativan prn to control agitation, 10/08: Patient continues to require Ativan due to behavioral issues due to sepsis encephalopathy on top of baseline behavioral bipolar disorder. Taking patient for LP today likely, cardiology is holding off ETHEL evaluation given patient is encephalopathic, patient's blood cultures 3rd time are both with early signs of Gram-positive cocci. Urology is getting MRI pelvis to evaluate for history of prostatic abscess. CT right great toe yesterday with chronic changes from osteomyelitis, this wound also showed MRSA. Pharmacy has some concern of vancomycin having low MAC. At this point it is unclear source of MRSA with recurrent MRSA, we will consult ID and continue to wait for improvement of patient's mental status to get ETHEL as concern for endocarditis emboli remains very possible given patient had left MCA stroke with clean corotids/vasculature. 10/09: Patient has bipolar, unable to make decisions, does not understand the severity of illness. Continuing behavioral control with the Haldol and Ativan. Holding off LP patient is agitated unable to follow up commands, same reason holding up ETHEL, some reason holding MRI. Vanc is at appropriate level but no ID consult available. Continues to have MRSA bacteremia, we will repeat culture.. 10/10: Patient is still remaining agitated, encephalopathic. Now having low- grade fevers. Start rectal Tylenol, psych has seen yesterday recommending ODT Zyprexa, we will do IM Haldol 5 mg q.6 scheduled, use Ativan 2 mg q.2h for breakthrough agitation. With continued positive blood culture despite therapeutic vanc levels, no ID consult, we will add 2nd MRSA coverage linezolid. Maintain sitter bedside. - later in PM, patient nonresponsive, abg with hyperventilation, cxr unconcerning (no septic nodules...), also having higher temps. despite no ativan/haldol, patient was nonresponsive, concern for airway protection, pt is intubated and R IJ cvc inserted. repeat CT with continued L mca stroke. started asa plavix. continue zyvox, vancomycin, ctx/flagyl. on sunday, will reassess ethel / LP, ID consult still pending. neuro following. family updated. pulm for vent managment. 10/11-10/12 - weekend coverage. developed vanc JAYLEEN , now nephrology onboard. changed vanc to dapto. 10/13: jayleen continues, anuric, nephrology following. still pending ID consult. cards aware for ETHEL. neurology to follow and need clearance from MRI brain and MRI pelvis today (there is no sign of metal in oral cavity, defer to mri team eval), neurology to clear for LP. Patient was seen and examined in the ICU on the bedside. He is on mechanical ventilation with FiO2 30%, peep 5, tidal volume 500 mL, respiratory rate 20. Patient had an ETHEL on 10/14/24 and found mitral valve vegetation with normal ejection fraction. Patient went to the OR for debridement of right foot ulcer. MRI of the head without contrast demonstrated large area of diffusion restriction of the left posterior temporal lobe and left parietal lobe, small area of punctate infarction along the right posterior frontal lobe to parietal lobe and imaging pattern may be compatible with embolic phenomenon. Objective vital signs Vital Sign Date Time Temp Pulse Resp B/P (MAP) Pulse Ox O2 Delivery O2 Flow Rate FiO2 10/15/24 15:55 99 24 112/69 (83) 96 30 10/15/24 14:00 Mechanical Ventilator+ 10/15/24 13:45 97.4 97.4 10/14/24 20:00 0 Total Intake and Output 10/14/24 10/14/24 10/15/24 15:00 23:00 07:00 Intake Total 1434.00 ml 1434.00 ml 1404.00 ml Output Total 125 ml 225 ml Balance 1434.00 ml 1309.00 ml 1179.00 ml medications Current Medications Medications Dose Ordered Sig/Dion Route Start Time Stop Time Status Last Admin Dose Admin Enoxaparin Sodium 40 mg DAILY SC 10/07/24 10:00 10/13/24 10:44 40 MG Acetaminophen 650 mg Q6HP PRN TN 10/10/24 10:00 10/10/24 15:18 650 MG Midazolam HCl 50 ml @ 1 mls/hr Q24H IV 10/10/24 17:15 10/15/24 15:44 6 MLS/HR Fentanyl Citrate 250 ml @ 2.5 mls/hr Q24H IV 10/10/24 17:15 10/15/24 06:16 20 MLS/HR Propofol 100 ml @ 2.496 mls/ hr Q24H IV 10/10/24 17:15 Norepinephrine Bitartrate 250 ml @ 3.75 mls/hr Q24H IV 10/10/24 17:45 10/15/24 04:04 3.75 MLS/HR Diagnostic Test (Pha) 1 strip Q6HR 10/11/24 00:00 10/15/24 11:10 1 STRIP Insulin Human Regular FOLLOW SLIDING SCALE Q6HR SC 10/11/24 00:00 10/15/24 06:08 2 UNITS Dextrose 50 ml UD IV 10/10/24 22:00 Amino Acids 0 ml @ 0 mls/hr PER PHARMACY IV 10/10/24 19:00 UNV Aspirin 81 mg DAILY PO 10/11/24 10:00 10/14/24 10:21 81 MG Enteral Nutritional Formula 1,000 ml 40ML/HR GT 10/10/24 21:15 10/14/24 21:21 1,000 ML Daptomycin 750 mg/ Sodium Chloride 50 ml @ 100 mls/hr DAILY IV 10/14/24 10:00 10/15/24 12:02 100 MLS/HR Pantoprazole Sodium 40 mg DAILY IV 10/14/24 10:00 10/15/24 10:02 40 MG Lactulose 30 ml BID PO 10/15/24 09:00 10/15/24 10:01 30 ML Bumetanide 12.5 mg/Miscellaneous 50 ml @ 4 mls/hr [id number] IV 10/15/24 13:00 Sodium Bicarbonate 75 ml/ Dextrose 1,075 ml @ 100 mls/hr [id number] IV 10/15/24 13:00 10/15/24 15:57 100 MLS/HR Ceftaroline Fosamil 400 mg/ Sodium Chloride 250 ml @ 250 mls/hr Q8H IV 10/15/24 18:00 Micafungin Sodium 100 mg/Sodium Chloride 100 ml @ 100 mls/hr DAILY IV 10/16/24 10:00 Examination Examination General: RASS -3, afebrile, mucosae are moist Cardiovascular: Normal S1 and S2. No murmurs, gallops or rubs Respiratory: Mechanically assisted ventilation, equal bilateral airway entree. Clear lung sounds on auscultation Abdomen: Soft, nontender, no organomegaly, sluggish bowel sounds MSK/skin: Mobilization of limbs cannot be evaluated. Skin is dry and warm. bilateral pedal edema +, ulceration in the bottom of the right great toe. Neurological: Orientation cannot be assessed. No apparent motor no sensitive deficits. Pupils are isocoric and reactive laboratory and microbiology Laboratory Tests 10/15/24 03:45 Test 10/15/24 03:45 Range/Units Serum Glucose 136 H 74-106 mg/dL Microbiology Date/Time Source Procedure Growth Status 10/11/24 21:30 Blood Blood Culture - Preliminary NO GROWTH AFTER 72 HOURS OF INCUBATION. Resulted 10/10/24 16:45 Sputum Expectorated Sputum Gram Stain - Final Complete 10/10/24 16:45 Sputum Expectorated Sputum Respiratory Culture - Final Complete 10/03/24 00:00 Toe Gram Stain - Final Complete 10/03/24 00:00 Wound Culture - Final Methicillin Resistant S.aureus Enterococcus faecalis Complete Labs and/or images reviewed: Labs reviewed by me, Image(s) reviewed by me Problem List/Assessment/Plan Problem List/Assessment/Plan Assessment and plan: NEURO: Acute metabolic encephalopathy secondary to ischemic stroke Possible septic emboli due to persistent MRSA bacteremia History of Bipolar disorder RASS score: -3 - CT head without contrast demonstrated acute left MCA stroke - MRI of the head without contrast demonstrated large area of diffusion restriction of the left posterior temporal lobe and left parietal lobe, small area of punctate infarction along the right posterior frontal lobe to parietal lobe and imaging pattern may be compatible with embolic phenomenon. - continue aspirin 81 mg and Plavix 75 mg daily CARDIOVASCULAR: Acute infective endocarditis of mitral valve Possible chronic diastolic heart failure with preserved ejection fraction - ETHEL on 10/14/2024 demonstrated mitral valve, structurally normal, anterior leaflet has a 0.8 cm vegetation with a stalk. 0.8 X 0.4 cm, no significant MR or abscess is noted - TTE revealed EF 45-50%, anteroseptal hypokinesis, biatrial enlargement - Infectious disease on board - Continue IV ceftaroline and daptomycin PULMONARY: Rt sided opacity due to possible mucus plug/volume overload GASTROENTEROLOGY: Ruled out ileus Moderate to Severe colonic volume of stool - lactulose 30 mL through G-tube daily GENITOURINARY: JAYLEEN secondary to vancomycin toxicity Possible prostatic abscess, history of recent prostate surgery Acute complicated cystitis - CT abdomen pelvis demonstrated evidence of left sacroiliitis with gas and fluid extending into left pelvic muscles likely representing abscess. Suboptimal characterization due to lack of contrast. Bilateral inguinal adenopathy is likely reactive. Rectal wall thickening, correlate for symptoms of proctitis. - pending MRI of the pelvis - IV 1/2 normal saline at 100 mL/hours - IV Bumex drip - D5 W with sodium bicarbonate at 100 mL/hours - Continue IV ceftaroline and daptomycin ENDOCRINE: Type 2 diabetes mellitus, hemoglobin A1c 13.2 Diabetic foot ulcer of right toe - CT right foot without contrast showed erosive changes involved proximal and distal phalanx with involvement of IP joint, possible osteomyelitis/septic arthritis, deep 1st digit plantar ulceration - scheduled for right foot I and D tomorrow - sliding scale of insulin METABOLIC: Moderate Protein calorie malnutrition, albumin 2.1 Hyperphosphatemia secondary to JAYLEEN Hypomagnesemia Metabolic acidosis due to JAYLEEN HEME: Acute on Chronic normocytic anemia secondary to dilutional versus anticoagulant use - 1 unit PRBC given - Hold DVT prophylaxis - Monitor H&H INFECTIOUS DISEASE: 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 Diabetic foot ulcer of right great toe Possible Prostatic abscess Acute Complicated cystitis Acute proctitis - Continue IV ceftaroline and daptomycin - Pending new blood culture DIET: Tube feeding DVT prophylax: SCD GI prophylaxis: Protonix Bowel regimen: Lactulose Code status: Full code LINES/DRAINS/ACCESS: ETT: Intubated on 10/10/2024 IV access: Right IJ placed on 10/10/24 Drips: Levophed, Versed, fentanyl Kan catheter: Placed on 10/02/2024 DISPOSITION: ICU Patient's status discussed with narinder, care services manager time spent more than 81 minutes, including patient care, chart review, and updating the family. Excluding any procedures. Plan discussed with: Other (Narinder, RN) My Orders My Orders Orders - GAURI IGNACIO Procedure Category Date Status Time Urine Bacterial POOJA 10/14/24 In Process Culture 22:37 Chest Portable XY 10/15/24 Resulted 04:00 Abg W/ Co-Ox RT 10/15/24 Logged 04:00 Lactulose Oral PHA 10/15/24 In Process 09:00 Ventilator Orders RT 10/15/24 Transmitted 09:36 Abg W/ Co-Ox RT 10/15/24 Logged 10:30 Micafungin Sodium PHA 10/16/24 In Process (Mycamine) 10:00 Chest Portable XY 10/15/24 Taken 16:18 Dietary Evaluation Review Comments: 1) Add cardiac restriction to 60g CCHO diet 2) Initiate Glucerna qd. Encourage optimal PO intake 3) Follow-up with urology and surgery 4) Follow-up with social service coordinator r/t methamphetamine abuse 5) Continue to monitor I&O, labs, and skin integrity Expected Outcomes/Goals: 1) appetite and labs to improve 2) wound to improve 3) f/u in 3-5 days Date of Service: Oct 15, 2024 Billing Provider: DEE DEE GALEANO MD Common Visit Codes: 73941-[id number] CARE 30-74 MIN, [id number] CARE-EACH +30MIN GAURI IGNACIO Oct 15, 2024 17:52 DEE DEE GALEANO MD Oct 16, 2024 11:10
[2024-10-16] VITALS (110 sets, daily range): BP systolic 98–135; BP diastolic 54–90; PULSE 83–107; RESP 10–26; TEMP 97.3–99.6; O2SAT 95–100
[2024-10-16 03:57] LABS: Anion Gap 11 (5-15); Potassium 4.2 mmol/L (3.5-5.1); Sodium 141 mmol/L (136-145)
[2024-10-16 04:03] LABS: BUN/Creatinine Ratio 12.0 (10.0-20.0)
[2024-10-16 04:04] LABS: Blood Urea Nitrogen 36 mg/dL (9-23); Calcium 7.1 mg/dL (8.7-10.4); Carbon Dioxide 18 mmol/L (20-31); Chloride 112 mmol/L (98-107); Glucose 130 mg/dL (74-106)
[2024-10-16 04:17] LABS: Hematocrit 21.8 % (41.0-53.0); Mean Corpuscular Hemoglobin 27.6 pg (28.0-32.0); Mean Corpuscular Volume 86.5 fL (80.0-100.0); Nucleated Red Blood Cells % 0.1 %
[2024-10-16 04:18] LABS: Hemoglobin 6.9 g/dL (13.5-17.5)
--- NOTE | 2024-10-16 05:43 | DVH ---
CHEST RADIOGRAPH Indication: Mechanical ventilation Technique: Single frontal view of the chest was obtained COMPARISON: XY CHEST PORTABLE on DOS: 10/15/24, XY CHEST PORTABLE on DOS: 10/15/24, XY CHEST XRAY 1 VIE W on DOS: 10/14/24, XY CHEST PORTABLE on DOS: 10/13/24, XY CHEST PORTABLE on DOS: 10/12/24 FINDINGS: Lines and Tubes: Lines and tubes unchanged. Lungs: Stable left pleural effusion and bibasilar pulmonary airspace disease. No pneumothorax. Cardiomediastinal contours: Unremarkable Bones: Unremarkable IMPRESSION: 1. Stable left pleural effusion and bibasilar pulmonary airspace disease. 2. Lines and tubes unchanged.
[2024-10-16 08:24] LABS: Base Excess -6.3 mmol/L (-2.0-3.0)
[2024-10-16] MEDS: PANTOPRAZOLE 40 MG/10 ML VIAL INJ IV SCH (09:28)
[2024-10-16] MEDS: LACTULOSE 20Gm/30ML SOLN PO SCH (09:29)
[2024-10-16] MEDS: MICAFUNGIN SODIUM 100 MG in SODIUM CHL 0.9% 100 ML IV SCH (09:30)
--- NOTE | 2024-10-16 12:10 | DVHCONRES ---
Date Seen: Oct 16, 2024 Resident Creating Document: NICOLETTE ROSADO RESIDENT Referring Physician Dr. Knox Reason for Consultation Severe anemia History of Present Illness Patient is a 39-year-old male with past medical history of type 2 diabetes, IV drug use, MRSA UTI, dyslipidemia, CVA, PID, GERD, methamphetamine abuse, right foot osteomyelitis who initially came to the hospital on 10/02/24 for complaints of fever. At the time patient reported having fever along with generalized weakness, abdominal pain and fever as high as 103.2. CT abdomen pelvis at the time revealed evidence of left sacroiliitis with gas and fluid extending into left pelvic muscles likely representing abscess; rectal wall thickening correlate for symptoms of proctitis. During hospitalization, the patient developed altered mental status and was found to have a left MCA stroke. Despite therapeutic vancomycin levels, MRSA bacteremia persisted. Neurology, Urology, Surgery, and ID were consulted. TIM revealed mitral valve vegetation, raising concern for infective endocarditis. MRI brain showed embolic infarcts. The patient was intubated for airway protection due to encephalopathy and agitation. Antibiotics were escalated to include linezolid, ceftriaxone, and metronidazole. Vancomycin was discontinued due to JAYLEEN; daptomycin was started. The patient underwent right foot ulcer debridement and remains critically ill in the ICU on mechanical ventilation. GI Services consulted for severe anemia Past Medical History type 2 diabetes, IV drug use, MRSA UTI, dyslipidemia, CVA, PID, GERD, methamphetamine abuse, right foot osteomyelitis Past Surgical History Prostate surgery Family History: Family history: Diabetes mellitus GRANDMOTHER (UNK) Allergies: Coded Allergies: No Known Drug Allergy (Unverified Allergy, Unknown, 10/03/24) Home Meds Reported Medications Semaglutide (Ozempic) 8 Mg/3 Ml Inj, 2 MG SC QWEEKLY for 28 Days, #3 10/03/24 Insulin Glargine (Lantus Solostar) 100 Unit/Ml Inj, 20 UNIT SC QPM for 75 Days, #15 10/03/24 Empagliflozin (Jardiance) 25 Mg Tab, 1 TAB PO DAILY for 90 Days, #90 08/24/24 Metformin Hydrochloride (Metformin Hcl) 1,000 Mg Tab, 1 TAB PO BID for 90 Days, #180 08/24/24 Atorvastatin Calcium (Lipitor) 10 Mg Tab, 1 TAB PO QPM for 90 Days, #90 05/10/23 Current Medications Current Medications Medications (Trade) Dose Ordered Sig/Dion Route PRN Reason Start Time Stop Time Status Last Admin Bumetanide 12.5 mg/Miscellaneous 50 ml @ 4 mls/hr [id number] IV 10/15/24 13:00 10/16/24 10:20 Sodium Bicarbonate 75 ml/ Dextrose 1,075 ml @ 100 mls/hr [id number] IV 10/15/24 13:00 10/16/24 11:10 DC 10/16/24 01:24 Ceftaroline Fosamil 400 mg/ Sodium Chloride 250 ml @ 250 mls/hr Q8H IV 10/15/24 18:00 10/16/24 10:54 Micafungin Sodium 100 mg/Sodium Chloride 100 ml @ 100 mls/hr DAILY IV 10/16/24 10:00 10/16/24 09:30 Lactulose 30 ml Q6HR PO 10/16/24 08:15 10/16/24 11:55 Polyethylene Glycol (Miralax 17GM Powder) 17 gm DAILYPRN PRN PO FOR CONSTIPATION 10/16/24 08:15 Pantoprazole Sodium (Protonix) 40 mg BID IV 10/16/24 08:30 10/16/24 09:28 Sodium Bicarbonate 75 ml/ Dextrose 1,075 ml @ 75 mls/hr [id number] IV 10/16/24 11:15 Review of Systems Review of systems could not be completed appropriately as patient remains intubated, sedated and on mechanical ventilation. Vital Signs Vital Signs Date Time Temp Pulse Resp B/P (MAP) Pulse Ox O2 Delivery O2 Flow Rate FiO2 10/16/24 11:54 84 24 122/80 (94) 99 30 10/16/24 10:19 97.5 97.5 10/16/24 10:00 Mechanical Ventilator+ 10/15/24 20:00 0 Physical Exam General: RASS -3, afebrile, mucosae are moist Cardiovascular: Normal S1 and S2. No murmurs, gallops or rubs Respiratory: Mechanically assisted ventilation, equal bilateral airway entree. Clear lung sounds on auscultation Abdomen: Soft, nontender, no organomegaly, sluggish bowel sounds MSK/skin: Mobilization of limbs cannot be evaluated. Skin is dry and warm. bilateral pedal edema +, ulceration in the bottom of the right great toe. Neurological: Orientation cannot be assessed. No apparent motor no sensitive deficits. Pupils are isocoric and reactive Labs/Diagnostic Data Labs Test 10/16/24 06:31 10/16/24 02:35 10/15/24 08:34 10/14/24 22:10 Range/Units Blood Gas Specimen Type Arterial Blood Gas Sample Site Left radial Blood Gas Patient Temperature 37.0 Arterial Blood Date Drawn [id number] Arterial Blood pH 7.364 7.350-7.450 Arterial Blood Partial Pressure CO2 33.1 L 35.0-48.0 mmHg Arterial Blood Partial Pressure O2 74.5 L 83.0-108.0 mmHg Arterial Blood HCO3 18.4 L 21.0-28.0 mmol/L Arterial Blood Oxygen Saturation 93.5 L 94.0-98.0 % Arterial Blood Base Excess -6.3 L -2.0-3.0 mmol/L Arterial Blood Oxyhemoglobin 92.8 L 94.0-98.0 % Arterial Blood Carboxyhemoglobin 0.3 L 0.5-1.5 % Arterial Blood Methemoglobin 0.5 0.0-1.5 % Simone Test Modified Blood Gas Total Hemoglobin 7.50 L 13.5-17.5 g/dL Blood Gas Set Respiration Rate 24.0 Blood Gas Modality Vent - ac FiO2 % 30.0 Blood Gas Tidal Volume 500.0 Blood Gas PEEP or CPAP 5.0 White Blood Count 4.1 #L 4.4-10.8 10^3/uL Red Blood Count 2.52 L 4.5-5.90 10^6/uL Hemoglobin 6.9 #*L 13.5-17.5 g/dL Hematocrit 21.8 #L 41.0-53.0 % Mean Corpuscular Volume 86.5 80.0-100.0 fL Mean Corpuscular Hemoglobin 27.6 L 28.0-32.0 pg Mean Corpuscular Hemoglobin Concent 31.9 L 32.0-36.0 g/dL Red Cell Distribution Width 17.2 H 11.8-14.3 % Platelet Count 139 L 140-450 10^3/uL Mean Platelet Volume 7.1 6.9-10.8 fL Neutrophils (%) (Auto) 69.8 37.0-80.0 % Lymphocytes (%) (Auto) 19.6 10.0-50.0 % Monocytes (%) (Auto) 7.3 0.0-12.0 % Eosinophils (%) (Auto) 1.4 0.0-7.0 % Basophils (%) (Auto) 1.9 0.0-2.0 % Neutrophils # (Auto) 2.9 1.6-8.6 10 ^3/uL Lymphocytes # (Auto) 0.8 0.4-5.4 10 ^3/uL Monocytes # (Auto) 0.3 0-1.3 10 ^3/uL Eosinophils # (Auto) 0.1 0-0.8 10 ^3/uL Basophils # (Auto) 0.1 0-0.2 10 ^3/uL Nucleated Red Blood Cells 0.1 % Sodium Level 141 136-145 mmol/L Potassium Level 4.2 3.5-5.1 mmol/L Chloride Level 112 H 98-107 mmol/L Carbon Dioxide Level 18 L 20-31 mmol/L Anion Gap 11 5-15 Blood Urea Nitrogen 36 H 9-23 mg/dL Creatinine 2.99 H 0.700-1.30 mg/dL Glomerular Filtration Rate Calc 26 >90 mL/min BUN/Creatinine Ratio 12.0 10.0-20.0 Serum Glucose 130 H 74-106 mg/dL Calcium Level 7.1 L 8.7-10.4 mg/dL Prothrombin Time 13.1 H 9.3-11.8 sec Prothrombin Time INR 1.26 H 0.9-1.15 Activated Partial Thromboplast Time 36.6 H 24.5-34.5 SEC Urine Color Light-orange Yellow Urine Clarity Ex.turbid Clear Urine pH 5.0 5.0-9.0 Urine Specific [place] 1.017 1.001-1.035 Urine Protein 1+ H Negative Urine Ketones Negative Negative Urine Blood 2+ H Negative /uL Urine Nitrite Negative Negative Urine Bilirubin Negative Negative Urine Urobilinogen Normal Negative mg/dL Urine Leukocyte Esterase 3+ Negative /uL Urine RBC 416 0 - 3 /hpf Urine Microscopic WBC 354 H 0-3 /HPF Urine Squamous Epithelial Cells None seen <5 /hpf Urine Bacteria Mod H None Seen /hpf Urine Hyaline Casts Many 0 - 2 /lpf Urine Mucus Few None Seen Urine Yeast with Hyphae Present /hpf Urine Yeast (Budding) Loaded None Seen /hpf Urine Creatinine 168.66 H 30.0-125.0 mg/dL Urine Protein/Creatinine Ratio 0.94 Urine Glucose Normal Normal mg/dL Urine Total Protein 158.7 H 1-14 mg/dL Test 10/14/24 10:42 10/14/24 05:04 10/14/24 03:32 10/13/24 07:26 Range/Units Urine Sodium 21 L 40-220 mmol/L Hemoglobin A1c 13.2 H <5.7 % A1C Magnesium Level 1.8 1.6-2.6 mg/dL Creatine Kinase 34 L 46-171 U/L Blood Gas Critical Value Read Back yes Blood Gas Notified Whom zuleyka danielson md Blood Gas Notified Time [id number] Blood Gas Notified By dino zhang tumbler drier operator Test 10/13/24 03:16 10/12/24 14:00 10/12/24 03:39 10/11/24 22:17 Range/Units Phosphorus Level 5.5 H 2.4-5.1 mg/dL Complement C3 67 L 82-167 mg/dL Complement C4 20 12-38 mg/dL Total Bilirubin < 0.2 L 0.2-1.0 mg/dL Aspartate Amino Transferase (AST) 12 L 13-40 U/L Alanine Aminotransferase (ALT) 9 7-40 U/L Alkaline Phosphatase 78 46-116 U/L Total Protein 6.1 5.7-8.2 g/dL Albumin 2.1 L 3.2-4.8 g/dL Vancomycin Level Trough 38.2 *H 5-10 ug/mL Test 10/11/24 21:31 10/10/24 05:07 10/07/24 13:01 10/07/24 09:00 Range/Units B-Type Natriuretic Peptide 102.53 0-100 pg/mL Random Vancomycin Level 15.2 H 5-10 ug/mL HIV (1&2) Antibody Negative Negative Erythrocyte Sedimentation Rate 102 H 0-20 mm/hr C-Reactive Protein High Sensitivity 19.31 H <1.0 mg/dL Triglycerides Level 153 H < 150 mg/dL Cholesterol Level 87 < 200 mg/dL LDL Cholesterol 39 < 100 mg/dL HDL Cholesterol 9 L 40-59 mg/dL Treponema pallidum Antibody Non-reactive Negative Test 10/05/24 18:40 10/05/24 15:02 10/05/24 11:48 10/05/24 02:47 Range/Units Differential Total Cells Counted 100.0 100 Neutrophils % (Manual) 73 37.0-80.0 Band Neutrophils % (Manual) 5 Lymphocytes % (Manual) 13 10.0-50.0 Monocytes % (Manual) 8 0-12 Eosinophils % (Manual) 0 0-7 Basophils % (Manual) 0 0.0-2.0 Metamyelocytes % (manual) 0 Myelocytes % (Manual) 0 Promyelocytes % (Manual) 0 Blast Cells % (Manual) 0 Reactive Lymphocytes 1 Platelet Estimate Decreased Ammonia < 10 L 11-32 umol/L Urine Opiates Screen Neg NEGATIVE Urine Fentanyl Screen Neg NEGATIVE Urine Barbiturates Screen Neg NEGATIVE Urine Phencyclidine Screen Neg NEGATIVE Urine Amphetamines Screen Neg NEGATIVE Urine Benzodiazepines Screen Neg NEGATIVE Urine Cocaine Screen Neg NEGATIVE Urine Cannabinoids Screen Neg NEGATIVE POC Glucose 226 H 70-106 mg/dl Anisocytosis (manual) Slight Thyroid Stimulating Hormone (TSH) 1.36 0.55-4.78 uIU/mL Test 10/03/24 04:25 10/02/24 21:24 Range/Units Hepatitis B Surface Antigen Negative Negative Hepatitis C Antibody Negative Negative Lactic Acid Level 1.3 0.4-2.0 mmol/L Microbiology Date/Time Source Procedure Growth Status 10/15/24 11:30 Foot Right Gram Stain Pending Resulted 10/15/24 11:30 Foot Right Anaerobic Culture Pending Resulted 10/15/24 11:30 Foot Right Aerobic Culture - Preliminary Resulted 10/14/24 22:45 Blood Blood Culture - Preliminary Resulted 10/10/24 16:45 Sputum Expectorated Sputum Gram Stain - Final Complete 10/10/24 16:45 Sputum Expectorated Sputum Respiratory Culture - Final Complete Assessment Anemia, possibly related to chronic disease with MCV 86.5 Proctitis MRSA bacteremia Septic emboli due to above Acute left MCA stroke Infective endocarditis with mitral valve vegetations Sepsis Ruled out ileus Constipation with moderate to severe colonic volume of stool Plan: Iron panel Stool occult blood IV Protonix b.i.d. Already on lactulose Consider Fleet enema if constipation does not resolve Continue antibiotics Thank you so much for the opportunity to consult on your patient. GI team will follow the patient. In case of any questions or concerns please feel free to reach out. Plan discussed with Dr. Saunders Plan discussed with: Other (RN) NCIOLETTE ROSADO RESIDENT Oct 16, 2024 12:10
--- NOTE | 2024-10-16 12:21 | DVHPN2 ---
Consult Progress Note Date Seen: Oct 16, 2024 Subjective Patient reports: No new complaints Other Systems: patient seen in the ICU bed 101, status quo. Spoke the mother at bedside. Brief discussion with the primary team RN and MD. Objective vital signs Vital Sign Date Time Temp Pulse Resp B/P (MAP) Pulse Ox O2 Delivery O2 Flow Rate FiO2 10/16/24 11:54 84 24 122/80 (94) 99 30 10/16/24 10:19 97.5 97.5 10/16/24 10:00 Mechanical Ventilator+ 10/15/24 20:00 0 Total Intake and Output 10/15/24 10/15/24 10/16/24 15:00 23:00 07:00 Intake Total 1033.00 ml 1331.0 ml 1400.0 ml Output Total 225 ml 550 ml Balance 1033.00 ml 1106.0 ml 850.0 ml GEN: A&O times 1 HEENT: NC/AT; MMM. CV: RRR, regular rhythm LUNGS: CTAB, no w/r/c. ABD: Soft, NT/ND, NBS, no masses or organomegaly. EXT: skin Warm, well perfused. no rashes. No clubbing, cyanosis, or edema. Right toe wrapped in gauze, chronic ulcer, checked the wounds in the sacrum and the toe unremarkable. NEURO: Ambulating with no limitations. No focal deficits. medications Current Medications Medications Dose Ordered Sig/Dion Route Start Time Stop Time Status Last Admin Dose Admin Acetaminophen 650 mg Q6HP PRN NE 10/10/24 10:00 10/10/24 15:18 650 MG Midazolam HCl 50 ml @ 1 mls/hr Q24H IV 10/10/24 17:15 10/16/24 05:36 6 MLS/HR Fentanyl Citrate 250 ml @ 2.5 mls/hr Q24H IV 10/10/24 17:15 10/16/24 06:24 22.5 MLS/HR Propofol 100 ml @ 2.496 mls/ hr Q24H IV 10/10/24 17:15 Norepinephrine Bitartrate 250 ml @ 3.75 mls/hr Q24H IV 10/10/24 17:45 10/15/24 04:04 3.75 MLS/HR Diagnostic Test (Pha) 1 strip Q6HR 10/11/24 00:00 10/16/24 11:57 1 STRIP Insulin Human Regular FOLLOW SLIDING SCALE Q6HR SC 10/11/24 00:00 10/16/24 12:03 4 UNITS Dextrose 50 ml UD IV 10/10/24 22:00 Amino Acids 0 ml @ 0 mls/hr PER PHARMACY IV 10/10/24 19:00 UNV Enteral Nutritional Formula 1,000 ml 40ML/HR GT 10/10/24 21:15 10/15/24 21:24 1,000 ML Daptomycin 750 mg/ Sodium Chloride 50 ml @ 100 mls/hr DAILY IV 10/14/24 10:00 10/15/24 12:02 100 MLS/HR Bumetanide 12.5 mg/Miscellaneous 50 ml @ 4 mls/hr [id number] IV 10/15/24 13:00 10/16/24 10:20 4 MLS/HR Ceftaroline Fosamil 400 mg/ Sodium Chloride 250 ml @ 250 mls/hr Q8H IV 10/15/24 18:00 10/16/24 10:54 250 MLS/HR Micafungin Sodium 100 mg/Sodium Chloride 100 ml @ 100 mls/hr DAILY IV 10/16/24 10:00 10/16/24 09:30 100 MLS/HR Lactulose 30 ml Q6HR PO 10/16/24 08:15 10/16/24 11:55 30 ML Polyethylene Glycol 17 gm DAILYPRN PRN PO 10/16/24 08:15 Pantoprazole Sodium 40 mg BID IV 10/16/24 08:30 10/16/24 09:28 40 MG Sodium Bicarbonate 75 ml/ Dextrose 1,075 ml @ 75 mls/hr [id number] IV 10/16/24 11:15 laboratory and microbiology Laboratory Tests 10/16/24 02:35 Test 10/16/24 02:35 Range/Units Serum Glucose 130 H 74-106 mg/dL Problem List/Assessment/Plan Problem List/Assessment/Plan Mr. Velazquez is a 39-year-old male with a history of insulin-dependent diabetes mellitus, GERD, bipolar disorder, schizophrenia, chronic diabetic ulcer, dyslipidemia, MRSA urinary infection, benign prostatic hyperplasia, and methamphetamine abuse, who presented to [facility] on 10/02/2024 with generalized weakness, fever, and abdominal discomfort. He required endotracheal intubation, low-dose vasopressor support, and chemical sedation for sepsis and persistent MRSA bacteremia. Cardiology was consulted for possible subacute endocarditis, with plans for transesophageal echocardiogram (TIM), though altered level of consciousness (ALOC) complicates evaluation. ECG showed sinus tachycardia at 133 bpm, and inflammatory markers were elevated. Imaging revealed a pelvic abscess, and urinalysis was suggestive of a UTI. Blood cultures from 10/02, 10/03, and 10/04 remained positive for MRSA, with the most recent on 10/09 still showing persistent bacteremia. HIV, hepatitis B and C, and syphilis testing were negative. The consultation was requested by Dr. Corbin for management of sepsis, pelvic abscess, recurrent MRSA bacteremia, and evaluation for endocarditis. Assessment: #Persistent bacteremia rule out subacute endocarditis #CVA, left MCA territory, possible infectious cardioembolic source: MRI reveals a large area of restricted diffusion in the left posterior temporal and parietal lobes, along with small punctate infarcts in the right posterior frontal to parietal lobes, suggesting a pattern consistent with an embolic phenomenon noted on MRI. #Cephalic vein thrombus; ? infectious thromboembolism #[id number]-jlsgqilxy diabetes mellitus #Methamphetamine abuse, unknown status of IV drug abuse #Mild aortic root enlargement. Mild TR, No pericardial effusion masses or vegetations noted on TTE #Meningitis? Possible, HSV encephalitis possible?, unable to rule out vs thromboembolic stroke #Abdomino-pelvic abscess: Evidence of left sacroiliitis with gas and fluid extending into left pelvic muscles likely representing abscess #UTI due to possible hematogenous seeding of bacteremia #MRSA Aspiration Pneumonia, Trace bilateral pleural effusions with adjacent atelectasis and patchy posterior bibasilar pulmonary infiltrate with MRSA #Uncontrolled DM with HbA1C 13.2 #TIM found MR with 0.8 cm vegetations. Plan: #Repeat blood culture again this PM. #MRI pelvis was not possible due to patient status, CT abdomen pelvis with contrast to locate intra pelvic source and further source control plan needs to be done taty. #Check MRI brain for rule out thromboembolism. Also please consider MRI of pelvis to locate intrapelvic collection or mass. #STD panel to check and urethral discharge culture. #Continue Daptomycin with Ceftaroline for appropriate coverage intracerebral and extracerebral bacteremia as the risk of further intracerebral infection remains high. #Surgical vs IR consult for possible drainage of collection as found. #check baseline CK follow up labs, weekly CK. #Daily 12 lead EKG to look for NE prolongation >200 ms for higher risk of intracardiac abscess, an absolute surgical emergency. #LP with CSF profile when possible with EEG #Continue ICU level care with close follow up by Primary Team. Discussed with Dr. Solano. Infectious disease team will follow up. Plan discussed with: Other (MOther, HEALTH OUTREACH WORKER, Primary Team. ) Dietary Evaluation Review Comments: 1) Add cardiac restriction to 60g CCHO diet 2) Initiate Glucerna qd. Encourage optimal PO intake 3) Follow-up with urology and surgery 4) Follow-up with social insurance analyst r/t methamphetamine abuse 5) Continue to monitor I&O, labs, and skin integrity Expected Outcomes/Goals: 1) appetite and labs to improve 2) wound to improve 3) f/u in 3-5 days ADAM MARTINO RESIDENT Oct 16, 2024 12:21
[2024-10-16] MEDS: SODIUM BICARB 50mEq/50ml Vial 75 ML in D5W 5% 1,000 ML IV SCH (13:22)
--- NOTE | 2024-10-16 15:23 | DVHPN2 ---
Progress Note Date Seen: Oct 16, 2024 Medical Necessity Reason Pt with a Central, PICC or Fol: No Subjective Review of Systems: RESPIRATORY:Abnormal Other Systems: Patient seen and examined by myself today in follow-up, patient remained intubated on ventilator Objective vital signs Vital Sign Date Time Temp Pulse Resp B/P (MAP) Pulse Ox O2 Delivery O2 Flow Rate FiO2 10/16/24 14:55 114/76 10/16/24 14:30 87 24 97 10/16/24 14:00 30 10/16/24 14:00 Mechanical Ventilator+ 10/16/24 13:17 97.3 97.3 10/15/24 20:00 0 Total Intake and Output 10/15/24 10/15/24 10/16/24 15:00 23:00 07:00 Intake Total 1033.00 ml 1331.0 ml 1400.0 ml Output Total 225 ml 550 ml Balance 1033.00 ml 1106.0 ml 850.0 ml medications Current Medications Medications Dose Ordered Sig/Dion Route Start Time Stop Time Status Last Admin Dose Admin Acetaminophen 650 mg Q6HP PRN OR 10/10/24 10:00 10/10/24 15:18 650 MG Midazolam HCl 50 ml @ 1 mls/hr Q24H IV 10/10/24 17:15 10/16/24 14:55 6 MLS/HR Fentanyl Citrate 250 ml @ 2.5 mls/hr Q24H IV 10/10/24 17:15 10/16/24 06:24 22.5 MLS/HR Propofol 100 ml @ 2.496 mls/ hr Q24H IV 10/10/24 17:15 Norepinephrine Bitartrate 250 ml @ 3.75 mls/hr Q24H IV 10/10/24 17:45 10/15/24 04:04 3.75 MLS/HR Diagnostic Test (Pha) 1 strip Q6HR 10/11/24 00:00 10/16/24 11:57 1 STRIP Insulin Human Regular FOLLOW SLIDING SCALE Q6HR SC 10/11/24 00:00 10/16/24 12:03 4 UNITS Dextrose 50 ml UD IV 10/10/24 22:00 Amino Acids 0 ml @ 0 mls/hr PER PHARMACY IV 10/10/24 19:00 UNV Enteral Nutritional Formula 1,000 ml 40ML/HR GT 10/10/24 21:15 10/15/24 21:24 1,000 ML Daptomycin 750 mg/ Sodium Chloride 50 ml @ 100 mls/hr DAILY IV 10/14/24 10:00 10/16/24 12:20 100 MLS/HR Bumetanide 12.5 mg/Miscellaneous 50 ml @ 4 mls/hr [id number] IV 10/15/24 13:00 10/16/24 10:20 4 MLS/HR Ceftaroline Fosamil 400 mg/ Sodium Chloride 250 ml @ 250 mls/hr Q8H IV 10/15/24 18:00 10/16/24 10:54 250 MLS/HR Micafungin Sodium 100 mg/Sodium Chloride 100 ml @ 100 mls/hr DAILY IV 10/16/24 10:00 10/16/24 09:30 100 MLS/HR Lactulose 30 ml Q6HR PO 10/16/24 08:15 10/16/24 11:55 30 ML Polyethylene Glycol 17 gm DAILYPRN PRN PO 10/16/24 08:15 Pantoprazole Sodium 40 mg BID IV 10/16/24 08:30 10/16/24 09:28 40 MG Sodium Bicarbonate 75 ml/ Dextrose 1,075 ml @ 75 mls/hr [id number] IV 10/16/24 11:15 10/16/24 13:22 75 MLS/HR Examination: LUNGS:Normal, CVS:Normal, MSK:Abnormal laboratory and microbiology Laboratory Tests 10/16/24 02:35 Test 10/16/24 02:35 Range/Units Serum Glucose 130 H 74-106 mg/dL Microbiology Date/Time Source Procedure Growth Status 10/15/24 11:30 Foot Right Gram Stain Pending Resulted 10/15/24 11:30 Foot Right Anaerobic Culture Pending Resulted 10/15/24 11:30 Foot Right Aerobic Culture - Preliminary Resulted 10/14/24 22:45 Blood Blood Culture - Preliminary Resulted 10/14/24 22:10 Voided Urine Urine Culture - Preliminary Resulted 10/10/24 16:45 Sputum Expectorated Sputum Gram Stain - Final Complete 10/10/24 16:45 Sputum Expectorated Sputum Respiratory Culture - Final Complete Problem List/Assessment/Plan Problem List/Assessment/Plan Acute kidney injury multifactorial hemodynamically mediated, FeNa < 1% Acute respiratory failure, patient intubated on ventilator Vancomycin nephrotoxicity Septic shock Acute CVA MRSA bacteremia Bacterial endocarditis Lower extremity MRSA wound infection BPH status post TURP with indwelling Kan catheter d History of methamphetamine abuse Hypoalbuminemia Metabolic acidosis Hypernatremia due to insensible water loss Recommendations Kidney function slightly worsened today Increase urine output IVF with bicarb Bumex IV 1 milligram/hour Kan catheter Strict I&Os Discontinue vancomycin Albumin 25% IV piggyback IV pressors for blood pressure support We will continue to follow up and check closely for need for hemodialysis Plan discussed with: Other (Nurse) Dietary Evaluation Review Comments: 1) Add cardiac restriction to 60g CCHO diet 2) Initiate Glucerna qd. Encourage optimal PO intake 3) Follow-up with urology and surgery 4) Follow-up with nephrology social worker r/t methamphetamine abuse 5) Continue to monitor I&O, labs, and skin integrity Expected Outcomes/Goals: 1) appetite and labs to improve 2) wound to improve 3) f/u in 3-5 days NATHALIA JOSEPH MD Oct 16, 2024 15:23
[2024-10-16 15:47] LABS: Iron 36.0 ug/dL (65-175)
[2024-10-16 15:54] LABS: Total Iron Binding Capacity 110.0 ug/dL (250-425)
--- NOTE | 2024-10-16 17:09 | DVH ---
CLINICAL HISTORY: Pelvic abscess TECHNIQUE: CT of the abdomen and pelvis was performed without IV contrast. This exam was performed ac cording to our departmental dose optimization program. Up-to-date CT equipment and radiation dose red uction techniques are utilized as appropriate. CTDI 23.3 DLP 1439 COMPARISON: CT CT AB PEL WITH IV CON ONLY on DOS: 10/06/24, CT CT AB PEL WO CON-NO ORAL OR IV on DOS: , CT CT AB PEL WITH IV CON ONLY on DOS: 08/22/24 FINDINGS: Evaluation is limited due to patient arm positioning resulting in significant streak artifact. The spleen, adrenal glands, pancreas, gallbladder, liver, and prostate gland are grossly unremarkable . The bladder decompressed by Kan. There are numerous foci of air at the left psoas muscle. There are erosive changes at the left anteri or sacroiliac joint. The abdominal aorta is normal in course and caliber. There are minimal aortic atherosclerotic calcifi cations. There are calcifications of the vas deferens. There is no free intraperitoneal air. There is a small to moderate amount of ascites. There is extens jose body wall edema. There is no enlarged abdominal pelvic lymph node. There is no bowel wall thickening or dilatation. The appendix is normal. There is moderate to large a mount of stool in the colon. A nasogastric tube terminates at the stomach. The imaged lower thorax demonstrates small to moderate left and small right pleural effusions with ad jacent atelectasis. Impression: Foci of air at the left psoas muscle with erosive changes at the left anterior sacroiliac joint. Find ings are concerning for acute osteomyelitis/septic arthritis with left psoas muscle abscess. Evaluate d on this study is extremely limited due to lack of IV contrast and artifact. Suggest MRI with and wi thout IV contrast for further evaluation. If MRI cannot be performed, contrast enhanced CT is suggest ed. Small to moderate amount of ascites. Extensive body wall edema. Small to moderate left and small right pleural effusions. Diabetes mellitus. Constipation.
--- NOTE | 2024-10-16 17:10 | DVHNC2 ---
Central Line Recorder of insertion practice: Speech Lang Path Therapist Occupation of edm operator: Attending Physician Indication: Suspected infection Room prepared for procedure: Yes Speech Lang Path Therapist performed hand hygien: Yes Maximal sterile barrier precau: Mask/Eye shield, Sterile gown, Cap, Sterlie gloves Skin Preparation: Chlorhexidine gluconate Insertion site: Left Central line catheter type: War-[id number]-fzu dialysis Number of lumens: 3 Central line exchanged over a: No Antiseptic ointment applied to: Yes Post Assessment: Chest X-Ray Informed consent obtained: Yes Risks/benefits/alt described: Yes Date of Service: Oct 16, 2024 Billing Provider: DEE DEE GALEANO MD Common Visit Codes: PROCEDURE ONLY Procedure Codes: [id number] NON-TUNNEL CV CATH DEE DEE GALEANO MD Oct 16, 2024 17:10
--- NOTE | 2024-10-16 17:44 | DVH ---
CHEST RADIOGRAPH Indication: s/p central line Technique: XY CHEST PORTABLE COMPARISON: None FINDINGS: The cardiac silhouette is unremarkable. Right IJ catheter tip projects over SVC. Left IJ catheter ti p projects over SVC. Nasogastric tube projects towards stomach beyond the field of view of this exam ination. Endotracheal tube tip projects 7.5 cm above the gallo. The lungs demonstrate bilateral patchy airspace opacities. The pulmonary vasculature is prominent. Mo derate left and small right pleural effusions. There is no pneumothorax. IMPRESSION: As above
--- NOTE | 2024-10-16 17:58 | DVHPNRES ---
Progress Note Date Seen: Oct 16, 2024 Resident Creating Document: GAURI IGNACIO RESIDENT Medical Necessity Reason Pt with a Central, PICC or Fol: No Subjective Review of Systems patient is a 39-year-old male with past medical history of diabetes mellitus, MRSA of the urine, hyperlipidemia, and methamphetamine abuse presented to [facility] ED with complaint of fever. Patient reports he has been experiencing fever, associated with generalized weakness, abdominal pain, presents with Kan catheter in place due to recent prostate surgery. Patient was seen and evaluated in the ED, laboratory data shows WBC 6.1, hemoglobin 9.5, hematocrit 28.7, platelets 203, sodium 130, potassium 4.0, BUN 23, creatinine 1.12, glucose 382, calcium 8.5, albumin 3.1, blood pressure 110/70, heart rate 136 trending down to 96, temperature 103.2 F trending down to 97.6 F, O2 saturation 95% on room air. Abdomen/pelvis CT revealing evidence of left sacroiliitis with gas and fluid extending into left pelvic muscles likely representing abscess; rectal wall thickening correlate for symptoms of proctitis; Kan catheter decompressed urinary bladder with wall thickening; hypodense appearance of the mildly enlarged prostate, cystitis and prostatitis or possible. Patient was started on IV antibiotic regimen vancomycin, 10/03: Patient has very high fevers up to 103, CT showing left sacroiliitis with gas fluid in 2 left pelvic muscles possible abscess. We will consult surgery. There is also proctitis and bladder wall thickening. We will continue broad- spectrum IV antibiotics. ?Concern of IVDU ,. Patient is tremulous mildly we will continue watching for alcohol withdrawal. We will monitor. We will need UDS. Significant hyperglycemia, diabetes likely complicating and/or causing wound/healing. Patient had recent prostate surgery and Urology consult placed. 10/04: DC patient's culture came VAC MRSA, already on vancomycin. Continue IV antibiotics. We will start Lantus 20 HS,. Continue present therapy 10/05: Patient appears altered today, had some visitors prior. Per RN patient has been normal for that. We will get stat CT, UDS and we will continue ongoing treatment and workup. Surgery and Urology both recommend continuing IV antibiotics, IR consult for possible drainage. Initial CT head negative, UDS negative. Patient continues to be confused had a fall. Repeating head CT again. Getting stat portable chest x-ray, repeat CBC CMP, TSH, ammonia, ABG stat, at sitter one-to-one, neurology consult for altered mental status 10/06: 2nd CT yesterday showed left MCA territory stroke. Patient's blood cultures continue to, with MRSA vanc sensitive. Continuing vanc. I am suspicious of endocarditis. We will get echocardiogram continue vanc. Not totally convinced of stroke causing confusion. Confusion/encephalopathy might be from sepsis, or other causes. We will hold off lumbar puncture right now and have follow up with Neurology to rule out meningitis/HSV encephalitis. Tomorrow we will get HIV/trapped antibody test. Start aspirin Plavix, statin, echo. 10/07: Echo is negative for vegetations, blood cultures were redrawn pending. Neurology agrees with LP. Neurology also agrees with ETHEL. Consult placed. Treponemal antibody/HIV pending. Yesterday we restarted patient's bipolar medication Abilify. Continuing vanc/ceftriaxone/metronidazole. Pending official EDITORIAL PROJECT MANAGER, neurology is doing aspirin only, Plavix discontinued for cva, continue Lipitor... Using Haldol and Ativan prn to control agitation, 10/08: Patient continues to require Ativan due to behavioral issues due to sepsis encephalopathy on top of baseline behavioral bipolar disorder. Taking patient for LP today likely, cardiology is holding off ETHEL evaluation given patient is encephalopathic, patient's blood cultures 3rd time are both with early signs of Gram-positive cocci. Urology is getting MRI pelvis to evaluate for history of prostatic abscess. CT right great toe yesterday with chronic changes from osteomyelitis, this wound also showed MRSA. Pharmacy has some concern of vancomycin having low MAC. At this point it is unclear source of MRSA with recurrent MRSA, we will consult ID and continue to wait for improvement of patient's mental status to get ETHEL as concern for endocarditis emboli remains very possible given patient had left MCA stroke with clean corotids/vasculature. 10/09: Patient has bipolar, unable to make decisions, does not understand the severity of illness. Continuing behavioral control with the Haldol and Ativan. Holding off LP patient is agitated unable to follow up commands, same reason holding up ETHEL, some reason holding MRI. Vanc is at appropriate level but no ID consult available. Continues to have MRSA bacteremia, we will repeat culture.. 10/10: Patient is still remaining agitated, encephalopathic. Now having low- grade fevers. Start rectal Tylenol, psych has seen yesterday recommending ODT Zyprexa, we will do IM Haldol 5 mg q.6 scheduled, use Ativan 2 mg q.2h for breakthrough agitation. With continued positive blood culture despite therapeutic vanc levels, no ID consult, we will add 2nd MRSA coverage linezolid. Maintain sitter bedside. - later in PM, patient nonresponsive, abg with hyperventilation, cxr unconcerning (no septic nodules...), also having higher temps. despite no ativan/haldol, patient was nonresponsive, concern for airway protection, pt is intubated and R IJ cvc inserted. repeat CT with continued L mca stroke. started asa plavix. continue zyvox, vancomycin, ctx/flagyl. on sunday, will reassess ethel / LP, ID consult still pending. neuro following. family updated. pulm for vent managment. 10/11-10/12 - weekend coverage. developed vanc JAYLEEN , now nephrology onboard. changed vanc to dapto. 10/13: jayleen continues, anuric, nephrology following. still pending ID consult. cards aware for ETHEL. neurology to follow and need clearance from MRI brain and MRI pelvis today (there is no sign of metal in oral cavity, defer to mri team eval), neurology to clear for LP. Patient was seen and examined in the ICU on the bedside. He is on mechanical ventilation with FiO2 30%, peep 5, tidal volume 500 mL, respiratory rate 20. Patient had an ETHEL on 10/14/24 and found mitral valve vegetation with normal ejection fraction. s/p debridement of right foot ulcer. MRI of the head without contrast demonstrated large area of diffusion restriction of the left posterior temporal lobe and left parietal lobe, small area of punctate infarction along the right posterior frontal lobe to parietal lobe and imaging pattern may be compatible with embolic phenomenon. ordered CT abdomen pelvis without contrast for possible pelvic abscess. Objective vital signs Vital Sign Date Time Temp Pulse Resp B/P (MAP) Pulse Ox O2 Delivery O2 Flow Rate FiO2 10/16/24 16:33 91 24 124/80 (95) 98 30 10/16/24 16:00 Mechanical Ventilator+ 10/16/24 15:45 98.0 98.0 10/15/24 20:00 0 Total Intake and Output 10/15/24 10/15/24 10/16/24 15:00 23:00 07:00 Intake Total 1033.00 ml 1331.0 ml 1400.0 ml Output Total 225 ml 550 ml Balance 1033.00 ml 1106.0 ml 850.0 ml medications Current Medications Medications Dose Ordered Sig/Dion Route Start Time Stop Time Status Last Admin Dose Admin Acetaminophen 650 mg Q6HP PRN NH 10/10/24 10:00 10/10/24 15:18 650 MG Midazolam HCl 50 ml @ 1 mls/hr Q24H IV 10/10/24 17:15 10/16/24 14:55 6 MLS/HR Fentanyl Citrate 250 ml @ 2.5 mls/hr Q24H IV 10/10/24 17:15 10/16/24 06:24 22.5 MLS/HR Propofol 100 ml @ 2.496 mls/ hr Q24H IV 10/10/24 17:15 Norepinephrine Bitartrate 250 ml @ 3.75 mls/hr Q24H IV 10/10/24 17:45 10/15/24 04:04 3.75 MLS/HR Diagnostic Test (Pha) 1 strip Q6HR 10/11/24 00:00 10/16/24 11:57 1 STRIP Insulin Human Regular FOLLOW SLIDING SCALE Q6HR SC 10/11/24 00:00 10/16/24 12:03 4 UNITS Dextrose 50 ml UD IV 10/10/24 22:00 Amino Acids 0 ml @ 0 mls/hr PER PHARMACY IV 10/10/24 19:00 UNV Enteral Nutritional Formula 1,000 ml 40ML/HR GT 10/10/24 21:15 10/15/24 21:24 1,000 ML Daptomycin 750 mg/ Sodium Chloride 50 ml @ 100 mls/hr DAILY IV 10/14/24 10:00 10/16/24 12:20 100 MLS/HR Bumetanide 12.5 mg/Miscellaneous 50 ml @ 4 mls/hr [id number] IV 10/15/24 13:00 10/16/24 10:20 4 MLS/HR Ceftaroline Fosamil 400 mg/ Sodium Chloride 250 ml @ 250 mls/hr Q8H IV 10/15/24 18:00 10/16/24 10:54 250 MLS/HR Micafungin Sodium 100 mg/Sodium Chloride 100 ml @ 100 mls/hr DAILY IV 10/16/24 10:00 10/16/24 09:30 100 MLS/HR Lactulose 30 ml Q6HR PO 10/16/24 08:15 10/16/24 11:55 30 ML Polyethylene Glycol 17 gm DAILYPRN PRN PO 10/16/24 08:15 Pantoprazole Sodium 40 mg BID IV 10/16/24 08:30 10/16/24 09:28 40 MG Sodium Bicarbonate 75 ml/ Dextrose 1,075 ml @ 75 mls/hr [id number] IV 10/16/24 11:15 10/16/24 13:22 75 MLS/HR Examination Examination General: RASS -3, afebrile, mucosae are moist Cardiovascular: Normal S1 and S2. No murmurs, gallops or rubs Respiratory: Mechanically assisted ventilation, equal bilateral airway entree. Clear lung sounds on auscultation Abdomen: Soft, nontender, no organomegaly, sluggish bowel sounds MSK/skin: Mobilization of limbs cannot be evaluated. Skin is dry and warm. bilateral pedal edema +, ulceration in the bottom of the right great toe. Neurological: Orientation cannot be assessed. No apparent motor no sensitive deficits. Pupils are isocoric and reactive laboratory and microbiology Laboratory Tests 10/16/24 02:35 Test 10/16/24 02:35 Range/Units Serum Glucose 130 H 74-106 mg/dL Microbiology Date/Time Source Procedure Growth Status 10/15/24 11:30 Foot Right Gram Stain - Final Resulted 10/15/24 11:30 Foot Right Anaerobic Culture - Preliminary Resulted 10/15/24 11:30 Foot Right Aerobic Culture - Preliminary Resulted 10/14/24 22:45 Blood Blood Culture - Preliminary Resulted 10/14/24 22:10 Voided Urine Urine Culture - Preliminary Resulted 10/10/24 16:45 Sputum Expectorated Sputum Gram Stain - Final Complete 10/10/24 16:45 Sputum Expectorated Sputum Respiratory Culture - Final Complete Labs and/or images reviewed: Labs reviewed by me, Image(s) reviewed by me Problem List/Assessment/Plan Problem List/Assessment/Plan Assessment and plan: NEURO: Acute metabolic encephalopathy secondary to ischemic stroke Possible septic emboli due to persistent MRSA bacteremia History of Bipolar disorder RASS score: -3 - CT head without contrast demonstrated acute left MCA stroke - MRI of the head without contrast demonstrated large area of diffusion restriction of the left posterior temporal lobe and left parietal lobe, small area of punctate infarction along the right posterior frontal lobe to parietal lobe and imaging pattern may be compatible with embolic phenomenon. - continue aspirin 81 mg and Plavix 75 mg daily CARDIOVASCULAR: Acute infective endocarditis of mitral valve Possible chronic diastolic heart failure with preserved ejection fraction - ETHEL on 10/14/2024 demonstrated mitral valve, structurally normal, anterior leaflet has a 0.8 cm vegetation with a stalk. 0.8 X 0.4 cm, no significant MR or abscess is noted - TTE revealed EF 45-50%, anteroseptal hypokinesis, biatrial enlargement - Infectious disease on board - Continue IV ceftaroline and daptomycin PULMONARY: Rt sided opacity due to possible mucus plug/volume overload GASTROENTEROLOGY: Ruled out ileus Moderate to Severe colonic volume of stool - lactulose 30 mL through G-tube daily GENITOURINARY: JAYLEEN secondary to vancomycin toxicity Possible prostatic abscess, history of recent prostate surgery Acute complicated cystitis - CT abdomen pelvis demonstrated evidence of left sacroiliitis with gas and fluid extending into left pelvic muscles likely representing abscess. Suboptimal characterization due to lack of contrast. Bilateral inguinal adenopathy is likely reactive. Rectal wall thickening, correlate for symptoms of proctitis. - pending MRI of the pelvis - IV 1/2 normal saline at 100 mL/hours - IV Bumex drip - D5 W with sodium bicarbonate at 100 mL/hours - Continue IV ceftaroline and daptomycin - ordered CT abdomen pelvis without contrast ENDOCRINE: Type 2 diabetes mellitus, hemoglobin A1c 13.2 Diabetic foot ulcer of right toe - CT right foot without contrast showed erosive changes involved proximal and distal phalanx with involvement of IP joint, possible osteomyelitis/septic arthritis, deep 1st digit plantar ulceration - scheduled for right foot I and D tomorrow - sliding scale of insulin METABOLIC: Moderate Protein calorie malnutrition, albumin 2.1 Hyperphosphatemia secondary to JAYLEEN Hypomagnesemia Metabolic acidosis due to JAYLEEN HEME: Acute on Chronic normocytic anemia secondary to dilutional versus anticoagulant use - 1 unit PRBC given - Hold DVT prophylaxis - Monitor H&H INFECTIOUS DISEASE: 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 Diabetic foot ulcer of right great toe Possible Prostatic abscess Acute Complicated cystitis Acute proctitis - Continue IV ceftaroline and daptomycin - new blood culture preliminary report demonstrated Gram-positive cocci in clusters DIET: Tube feeding DVT prophylax: SCD GI prophylaxis: Protonix Bowel regimen: Lactulose Code status: Full code LINES/DRAINS/ACCESS: ETT: Intubated on 10/10/2024 IV access: Left IJ placed on 10/16/24 Drips: Levophed, Versed, fentanyl Kan catheter: Placed on 10/02/2024 DISPOSITION: ICU Patient's status discussed with narinder, physician locums urgent care time spent more than 82 minutes, including patient care, chart review, and updating the family. Excluding any procedures. Plan discussed with Dr. Galeano Plan discussed with: Other (Narinder, RN) My Orders My Orders Orders - GAURI IGNACIO Procedure Category Date Status Time Lactulose Oral PHA 10/16/24 In Process 08:15 Polyethylene Glycol PHA 10/16/24 In Process 17g Powder (Miralax 08:15 Pantoprazole PHA 10/16/24 In Process (Protonix) 08:30 * Gi Dvh Supervisor Ore Dressing CONS 10/16/24 Transmitted 08:16 Ct Ab Pel Wo Con-No CT 10/16/24 Resulted Oral Or Iv 13:54 Routine Bacterial POOJA 10/16/24 In Process Culture 14:00 Chest Portable XY 10/16/24 Resulted 17:10 Routine Bacterial POOJA 10/16/24 Uncollected Culture 17:41 Dietary Evaluation Review Comments: 1) Add cardiac restriction to 60g CCHO diet 2) Initiate Glucerna qd. Encourage optimal PO intake 3) Follow-up with urology and surgery 4) Follow-up with older adult social work specialist r/t methamphetamine abuse 5) Continue to monitor I&O, labs, and skin integrity Expected Outcomes/Goals: 1) appetite and labs to improve 2) wound to improve 3) f/u in 3-5 days Date of Service: Oct 16, 2024 Billing Provider: DEE DEE GALEANO MD Common Visit Codes: [id number] CARE 30-74 MIN, [id number] CARE-EACH +30MIN GAURI IGNACIO Oct 16, 2024 17:58 DEE DEE GALEANO MD Oct 18, 2024 12:00
--- NOTE | 2024-10-16 22:42 | DVHPN2 ---
Progress Note - Dictate Date Seen: Oct 16, 2024 Medical Necessity Reason Pt with a Central, PICC or Fol: No Subjective Mr. Velazquez is a 39 years old gentleman with a history of diabetes, GERD, bipolar disorder, schizophrenia, chronic diabetic ulcer, he was brought to the [facility] on 10/02/2024 with a chief company of fever, the patient is also noticed to have altered mental status, in the CT brain scan showed evidence suggestive of left MCA territory acute stroke. Because of fever, worsening mental status, that is was intubated and transferred to ICU on 10/10/24 I have seen and examined the patient, talked to his nurse, he intubated, sedated, responsive to strong painful stimuli, Versed 6 mg/hour, fentanyl 225 mcg/hour Blood culture, 10/02/2024: MRSA Blood culture, 10/03/2024: MRSA Blood culture, 10/04/2024: MRSA UDS, 10/03/2024: Ms. Amphetamine, 09/3124: Negative Urinalysis, 10/02/2024: WBC: 30, urine leukocyte esterase: Trace WBC/HB/PLT/MCV, 10/06/2024: 5/8.7/130/82.4, 10/10/2024: 6.5/8.1/211/84.5, , 10/11/2024: 6.1/7.5/176/85.9 PTT/INR/eight six, 10/02/2024: 12.3/1.18/34.4 Na, 10/07/2024: 144 10/10/2024: 151, 10/11/2024: 148 CMP, 10/05/2024: Unremarkable BUN/CR, 10/10/2024: 22/0.96, 10/11/2024: 32/1.94 GFR, 10/10/2024: 102, 10/11/2024: 44 Liver function tests, 10/11/2024: Unremarkable HGB A1c, 05/10/2023: >14 TG/HDL/LDL/HDL, 10/07/2024: 153/87/39/9 TIM, 10/14/2024: Left Ventricle: Normal LV size and function, LVEF estimated at 60% Right Ventricle: NOrmal RV size and function Left atrium: normal Right atrium: normal RA Left atrial appendage: no thrombus noted, d Aortic valve: trileaflet valve, no severe or AI Mitral Valve: structurally normal, anterior leaflet has 0. 8 cm vegetation with stalk . 0.8 x 0.4 cm, no significant MR is noted however, no abscess noted Tricuspid Valve: mild tricuspid regurgitaiton, no TS Pulmonic Valve: structurally normal, no severe PIor PS Interatrial septum: negative color flow for R to L shunt, negative bubble study Ascending aorta: no severe plaquing Echocardiogram, 10/06/2024: Technically good study. Off axis views. Limited views obtained. There appears to be biatrial enlargement and LV enlargement. Mild aortic root enlargement. Valves appear to be structurally normal. Left ventricular function is borderline at 45 to 50% anteroseptal hypokinesis.. Normal RV function. Mild TR. No pericardial effusion masses or vegetations. CT head, 10/05/2024: Acute left MCA territory infarct in left insula/temporal operculum/temporal lobe. No hemorrhage or mass effect Sedated, 10/09/2024: 1. Interval progression in evolution of left middle cerebral artery territory infarct involving the insula / temporal are operculum/ temporal lobe with associated loss of khoury-white matter differentiation and progressively diminished parenchymal attenuation. 2. No evidence of intracranial hemorrhage, mass effect, midline shift or herniation. 3. Chronic sequelae of microangiopathy and atrophic cortical volume loss. CT abdomen/pelvis, 10/06/2024: 1. Trace bilateral pleural effusions with adjacent atelectasis and patchy posterior bibasilar pulmonary infiltrate. 2. Hepatomegaly. 3. Excess retained colorectal stool and moderate proximal mechanical small-bowel obstruction. 4. Moderate gas and Kan catheter within the urinary bladder CT abdomen/pelvis, 10/16/2024: Foci of air at the left psoas muscle with erosive changes at the left anterior sacroiliac joint. Findings are concerning for acute osteomyelitis/septic arthritis with left psoas muscle abscess. Evaluated on this study is extremely limited due to lack of IV contrast and artifact. Suggest MRI with and without IV contrast for further evaluation. If MRI cannot be performed, contrast enhanced CT is suggested. Small to moderate amount of ascites. Extensive body wall edema. Small to moderate left and small right pleural effusions. Diabetes mellitus. Constipation. CTA head, neck, 10/05/2024: 1. No evidence of acute intracranial hemorrhage, mass effect or hydrocephalus. 2. No evidence of hemodynamically significant intracranial stenosis, proximal occlusion or aneurysm. 3. No evidence of hemodynamically significant cervical stenosis or dissection MRI head, 10/15/2024: 1. Large area of diffusion restriction of the left posterior temporal lobe and left parietal lobe. 2. Small areas of punctate infarction along the right posterior frontal lobe to parietal lobe. 3. Imaging pattern may be compatible with embolic phenomenon vital signs Vital Sign Date Time Temp Pulse Resp B/P (MAP) Pulse Ox O2 Delivery O2 Flow Rate FiO2 10/16/24 22:03 92 26 130/90 (103) 98 30 10/16/24 18:00 98.3 98.3 10/16/24 18:00 Mechanical Ventilator+ 10/15/24 20:00 0 Total Intake and Output 10/15/24 10/15/24 10/16/24 15:00 23:00 07:00 Intake Total 1033.00 ml 1331.0 ml 1400.0 ml Output Total 225 ml 550 ml Balance 1033.00 ml 1106.0 ml 850.0 ml medications Current Medications Medications Dose Ordered Sig/Dion Route Start Time Stop Time Status Last Admin Dose Admin Acetaminophen 650 mg Q6HP PRN [place] 10/10/24 10:00 10/10/24 15:18 650 MG Midazolam HCl 50 ml @ 1 mls/hr Q24H IV 10/10/24 17:15 10/16/24 19:17 6 MLS/HR Fentanyl Citrate 250 ml @ 2.5 mls/hr Q24H IV 10/10/24 17:15 10/16/24 18:01 22.5 MLS/HR Propofol 100 ml @ 2.496 mls/ hr Q24H IV 10/10/24 17:15 Norepinephrine Bitartrate 250 ml @ 3.75 mls/hr Q24H IV 10/10/24 17:45 10/15/24 04:04 3.75 MLS/HR Diagnostic Test (Pha) 1 strip Q6HR 10/11/24 00:00 10/16/24 18:28 1 STRIP Insulin Human Regular FOLLOW SLIDING SCALE Q6HR SC 10/11/24 00:00 10/16/24 18:18 4 UNITS Dextrose 50 ml UD IV 10/10/24 22:00 Amino Acids 0 ml @ 0 mls/hr PER PHARMACY IV 10/10/24 19:00 UNV Enteral Nutritional Formula 1,000 ml 40ML/HR GT 10/10/24 21:15 10/15/24 21:24 1,000 ML Daptomycin 750 mg/ Sodium Chloride 50 ml @ 100 mls/hr DAILY IV 10/14/24 10:00 10/16/24 12:20 100 MLS/HR Bumetanide 12.5 mg/Miscellaneous 50 ml @ 4 mls/hr [id number] IV 10/15/24 13:00 10/16/24 22:00 4 MLS/HR Ceftaroline Fosamil 400 mg/ Sodium Chloride 250 ml @ 250 mls/hr Q8H IV 10/15/24 18:00 10/16/24 18:12 250 MLS/HR Micafungin Sodium 100 mg/Sodium Chloride 100 ml @ 100 mls/hr DAILY IV 10/16/24 10:00 10/16/24 09:30 100 MLS/HR Lactulose 30 ml Q6HR PO 10/16/24 08:15 10/16/24 18:12 30 ML Polyethylene Glycol 17 gm DAILYPRN PRN PO 10/16/24 08:15 Pantoprazole Sodium 40 mg BID IV 10/16/24 08:30 10/16/24 21:59 40 MG Sodium Bicarbonate 75 ml/ Dextrose 1,075 ml @ 75 mls/hr [id number] IV 10/16/24 11:15 10/16/24 13:22 75 MLS/HR objective General: the patient is well developed and nourished. No acute distress. Intubated MUSCULOSKELETAL EXAM: Chronic ulcer in the right big toe, a small skin lesion in the left big toe MENTAL STATUS: Subjective SPEECH, LANGUAGE, HIGHER CORTICAL FUNCTION: Subjective CRANIAL NERVES: Pupils are equal, round and reactive. There is doll's eye, corneal reflexes. No sign of facial weakness. He has gag reflexes SENSATION: Responsive to stroke painful stimuli MOTOR: Muscle tone feels normal, no spontaneous extremity movement REFLEXES: Deep tendon reflexes feel symmetrical. No pathological reflexes. CEREBELLAR/COORDINATION: Deferred GAIT/STATION: deferred laboratory and microbiology Laboratory Tests 10/16/24 02:35 Test 10/16/24 02:35 Range/Units Serum Glucose 130 H 74-106 mg/dL Problem List Altered mental status, secondary to Acute stroke Metabolic encephalopathy Rule out intracranial infection Acute respiratory failure Abnormal CT head Acute stroke Rule out encephalitis Prostatic abscess vs hematoma Rule out endocarditis Sepsis with MRSA Chronic diabetic wound Endocarditis Osteomyelitis History of substance abuse Assessment/Plan Monitoring Supportive treatment ICU care Stool occult blood Follow up blood tests LP with CSF profile Stabilize vitals Respiratory support/vent management Aspirin 81 mg daily (on hold) D/C Lipitor 20 mg daily (LDL: 39) IV antibiotics Haldol p.r.n. for agitation DVT prophylaxis/Lovenox (on hold) Infectious disease on case Need to quit substance abuse Okay to have lumbar puncture from neurologic point of view More recommendation per clinical course This medical document was created using an electronic medical record system with [employer] dictation system. Although this document has been carefully reviewed, there may still be some phonetic and typographical errors. These areas are purely typographical due to imperfections of the software programs, and do not reflect any compromise in the patient's medical care. Prognosis Guarded Dietary Evaluation Review Comments: 1) Add cardiac restriction to 60g CCHO diet 2) Initiate Glucerna qd. Encourage optimal PO intake 3) Follow-up with urology and surgery 4) Follow-up with social media analyst r/t methamphetamine abuse 5) Continue to monitor I&O, labs, and skin integrity Expected Outcomes/Goals: 1) appetite and labs to improve 2) wound to improve 3) f/u in 3-5 days Plan discussed with: Other CALEB PAYNE MD Oct 16, 2024 22:42
[2024-10-17] VITALS (103 sets, daily range): BP systolic 107–137; BP diastolic 59–89; PULSE 85–98; RESP 13–26; TEMP 97.6–98.5; O2SAT 93–100
[2024-10-17 03:55] LABS: Hematocrit 25.7 % (41.0-53.0); Hemoglobin 8.7 g/dL (13.5-17.5); Mean Corpuscular Hemoglobin 27.9 pg (28.0-32.0); Mean Corpuscular Volume 82.4 fL (80.0-100.0); Nucleated Red Blood Cells % 0.0 %
[2024-10-17 04:08] LABS: Anion Gap 8 (5-15); Carbon Dioxide 22 mmol/L (20-31); Potassium 4.0 mmol/L (3.5-5.1); Sodium 141 mmol/L (136-145)
[2024-10-17 04:14] LABS: BUN/Creatinine Ratio 14.9 (10.0-20.0); Blood Urea Nitrogen 41 mg/dL (9-23); Calcium 7.6 mg/dL (8.7-10.4); Chloride 111 mmol/L (98-107); Glucose 121 mg/dL (74-106)
--- NOTE | 2024-10-17 05:25 | DVH ---
CHEST RADIOGRAPH Indication: Mechanical ventilation Technique: Single frontal view of the chest was obtained COMPARISON: XY CHEST PORTABLE on DOS: 10/16/24, XY CHEST PORTABLE on DOS: 10/16/24, XY CHEST PORTABLE o n DOS: 10/15/24, XY CHEST PORTABLE on DOS: 10/15/24, XY CHEST XRAY 1 VIEW on DOS: 10/14/24 FINDINGS: Lines and Tubes: Endotracheal tube and left central venous catheter in satisfactory position Lungs: Congestion Pleura: No effusion. No pneumothorax. Cardiomediastinal contours: Unremarkable Bones: Unremarkable IMPRESSION: Endotracheal tube and left central venous catheter in satisfactory position
--- NOTE | 2024-10-17 05:51 | DVH ---
CHEST RADIOGRAPH Indication: ET Tube advancement Technique: Single frontal view of the chest was obtained COMPARISON: XY CHEST PORTABLE on DOS: 10/17/24, XY CHEST PORTABLE on DOS: 10/16/24, XY CHEST PORTABLE o n DOS: 10/16/24, XY CHEST PORTABLE on DOS: 10/15/24, XY CHEST PORTABLE on DOS: 10/15/24 FINDINGS: Lines and Tubes: Endotracheal tube, enteric catheter and left central venous catheter in satisfactory position Lungs: Congestion Pleura: No effusion. No pneumothorax. Cardiomediastinal contours: Unremarkable Bones: Unremarkable IMPRESSION: Endotracheal tube in satisfactory position.
[2024-10-17 06:07] LABS: Chlamydia Trachomatis, NAA Negative (Negative); Neisseria gonorrhoeae, NAA Negative (Negative)
[2024-10-17 07:04] LABS: Base Excess -4.7 mmol/L (-2.0-3.0)
--- NOTE | 2024-10-17 09:37 | DVHPN2 ---
Progress Note Date Seen: Oct 17, 2024 Resident Creating Document: NICOLETTE ROSADO RESIDENT Medical Necessity Reason Pt with a Central, PICC or Fol: No Subjective Review of Systems Patient seen and examined at bedside Has not been able to have a bowel movement Stable H&H Gastric Residual 100 cc this a.m.; on TF at 20 cc/hour Versed at 6, fentanyl 225 Running Bumex drip at 1 milligram/hour Objective vital signs Vital Sign Date Time Temp Pulse Resp B/P (MAP) Pulse Ox O2 Delivery O2 Flow Rate FiO2 10/17/24 09:09 95 24 128/82 (97) 100 30 10/17/24 06:00 Mechanical Ventilator+ 10/17/24 04:00 98.5 98.5 10/15/24 20:00 0 Total Intake and Output 10/16/24 10/16/24 10/17/24 15:00 23:00 07:00 Intake Total 1510.0 ml 1296.0 ml 1134.5 ml Output Total 1000 ml 2000 ml Balance 1510.0 ml 296.0 ml -865.5 ml medications Current Medications Medications Dose Ordered Sig/Dion Route Start Time Stop Time Status Last Admin Dose Admin Acetaminophen 650 mg Q6HP PRN [place] 10/10/24 10:00 10/10/24 15:18 650 MG Midazolam HCl 50 ml @ 1 mls/hr Q24H IV 10/10/24 17:15 10/17/24 03:42 6 MLS/HR Fentanyl Citrate 250 ml @ 2.5 mls/hr Q24H IV 10/10/24 17:15 10/17/24 03:43 22.5 MLS/HR Propofol 100 ml @ 2.496 mls/ hr Q24H IV 10/10/24 17:15 Norepinephrine Bitartrate 250 ml @ 3.75 mls/hr Q24H IV 10/10/24 17:45 10/15/24 04:04 3.75 MLS/HR Diagnostic Test (Pha) 1 strip Q6HR 10/11/24 00:00 10/17/24 06:19 1 STRIP Insulin Human Regular FOLLOW SLIDING SCALE Q6HR SC 10/11/24 00:00 10/17/24 00:07 2 UNITS Dextrose 50 ml UD IV 10/10/24 22:00 Amino Acids 0 ml @ 0 mls/hr PER PHARMACY IV 10/10/24 19:00 UNV Enteral Nutritional Formula 1,000 ml 40ML/HR GT 10/10/24 21:15 10/15/24 21:24 1,000 ML Daptomycin 750 mg/ Sodium Chloride 50 ml @ 100 mls/hr DAILY IV 10/14/24 10:00 10/17/24 09:23 100 MLS/HR Bumetanide 12.5 mg/Miscellaneous 50 ml @ 4 mls/hr [id number] IV 10/15/24 13:00 10/17/24 06:42 4 MLS/HR Ceftaroline Fosamil 400 mg/ Sodium Chloride 250 ml @ 250 mls/hr Q8H IV 10/15/24 18:00 10/17/24 02:29 250 MLS/HR Micafungin Sodium 100 mg/Sodium Chloride 100 ml @ 100 mls/hr DAILY IV 10/16/24 10:00 10/16/24 09:30 100 MLS/HR Lactulose 30 ml Q6HR PO 10/16/24 08:15 10/17/24 06:16 30 ML Polyethylene Glycol 17 gm DAILYPRN PRN PO 10/16/24 08:15 Pantoprazole Sodium 40 mg BID IV 10/16/24 08:30 10/16/24 21:59 40 MG Sodium Bicarbonate 75 ml/ Dextrose 1,075 ml @ 75 mls/hr [id number] IV 10/16/24 11:15 10/17/24 02:30 75 MLS/HR Examination General: RASS -3, afebrile, mucosae are moist Cardiovascular: Normal S1 and S2. No murmurs, gallops or rubs Respiratory: Mechanically assisted ventilation, equal bilateral airway entree. Clear lung sounds on auscultation Abdomen: Soft, nontender, no organomegaly, sluggish bowel sounds MSK/skin: Mobilization of limbs cannot be evaluated. Skin is dry and warm. bilateral pedal edema +, ulceration in the bottom of the right great toe. Neurological: Orientation cannot be assessed. No apparent motor no sensitive deficits. Pupils are isocoric and reactive laboratory and microbiology Laboratory Tests 10/17/24 03:05 Test 10/17/24 03:05 Range/Units Serum Glucose 121 H 74-106 mg/dL Microbiology Date/Time Source Procedure Growth Status 10/16/24 02:35 Blood Blood Culture - Preliminary NO GROWTH AFTER 24 HOURS OF INCUBATION. Resulted 10/15/24 11:30 Foot Right Gram Stain - Final Resulted 10/15/24 11:30 Foot Right Anaerobic Culture - Preliminary Resulted 10/15/24 11:30 Foot Right Aerobic Culture - Preliminary Resulted 10/14/24 22:10 Voided Urine Urine Culture - Preliminary Resulted 10/10/24 16:45 Sputum Expectorated Sputum Gram Stain - Final Complete 10/10/24 16:45 Sputum Expectorated Sputum Respiratory Culture - Final Complete Labs and/or images reviewed: Labs reviewed by me, Image(s) reviewed by me Problem List/Assessment/Plan Problem List/Assessment/Plan Anemia, possibly related to chronic disease with MCV 86.5 Proctitis MRSA bacteremia Septic emboli due to above Acute left MCA stroke Infective endocarditis with mitral valve vegetations Sepsis Ruled out ileus Constipation with moderate to severe colonic volume of stool Plan: Continue conservative management, observation Iron panel Stool occult blood IV Protonix b.i.d. Already on lactulose Consider Fleet enema if constipation does not resolve Continue antibiotics Thank you so much for the opportunity to consult on your patient. GI team will follow the patient. In case of any questions or concerns please feel free to reach out. Plan discussed with Dr. Saunders Plan discussed with: Other (Mother, RN) My Orders My Orders Orders - NICOLETTE ROSADO RESIDENT Procedure Category Date Status Time Stool Occult Blood LAB 10/16/24 Logged 12:57 Dietary Evaluation Review Comments: 1) Add cardiac restriction to 60g CCHO diet 2) Initiate Glucerna qd. Encourage optimal PO intake 3) Follow-up with urology and surgery 4) Follow-up with social insurance specialist r/t methamphetamine abuse 5) Continue to monitor I&O, labs, and skin integrity Expected Outcomes/Goals: 1) appetite and labs to improve 2) wound to improve 3) f/u in 3-5 days NICOLETTE ROSADO RESIDENT Oct 17, 2024 09:37
--- NOTE | 2024-10-17 10:25 | DVHPN2 ---
Progress Note Date Seen: Oct 17, 2024 Medical Necessity Reason Pt with a Central, PICC or Fol: No Subjective Review of Systems: RESPIRATORY:Abnormal Other Systems: Patient seen and examined by myself today in follow-up, patient remained intubated on ventilator Objective vital signs Vital Sign Date Time Temp Pulse Resp B/P (MAP) Pulse Ox O2 Delivery O2 Flow Rate FiO2 10/17/24 09:09 95 24 128/82 (97) 100 30 10/17/24 06:00 Mechanical Ventilator+ 10/17/24 04:00 98.5 98.5 10/15/24 20:00 0 Total Intake and Output 10/16/24 10/16/24 10/17/24 15:00 23:00 07:00 Intake Total 1510.0 ml 1296.0 ml 1134.5 ml Output Total 1000 ml 2000 ml Balance 1510.0 ml 296.0 ml -865.5 ml medications Current Medications Medications Dose Ordered Sig/Dion Route Start Time Stop Time Status Last Admin Dose Admin Acetaminophen 650 mg Q6HP PRN [place] 10/10/24 10:00 10/10/24 15:18 650 MG Midazolam HCl 50 ml @ 1 mls/hr Q24H IV 10/10/24 17:15 10/17/24 03:42 6 MLS/HR Fentanyl Citrate 250 ml @ 2.5 mls/hr Q24H IV 10/10/24 17:15 10/17/24 03:43 22.5 MLS/HR Propofol 100 ml @ 2.496 mls/ hr Q24H IV 10/10/24 17:15 Norepinephrine Bitartrate 250 ml @ 3.75 mls/hr Q24H IV 10/10/24 17:45 10/15/24 04:04 3.75 MLS/HR Diagnostic Test (Pha) 1 strip Q6HR 10/11/24 00:00 10/17/24 06:19 1 STRIP Insulin Human Regular FOLLOW SLIDING SCALE Q6HR SC 10/11/24 00:00 10/17/24 00:07 2 UNITS Dextrose 50 ml UD IV 10/10/24 22:00 Amino Acids 0 ml @ 0 mls/hr PER PHARMACY IV 10/10/24 19:00 UNV Enteral Nutritional Formula 1,000 ml 40ML/HR GT 10/10/24 21:15 10/15/24 21:24 1,000 ML Daptomycin 750 mg/ Sodium Chloride 50 ml @ 100 mls/hr DAILY IV 10/14/24 10:00 10/17/24 09:23 100 MLS/HR Bumetanide 12.5 mg/Miscellaneous 50 ml @ 4 mls/hr [id number] IV 10/15/24 13:00 10/17/24 06:42 4 MLS/HR Ceftaroline Fosamil 400 mg/ Sodium Chloride 250 ml @ 250 mls/hr Q8H IV 10/15/24 18:00 10/17/24 09:58 250 MLS/HR Micafungin Sodium 100 mg/Sodium Chloride 100 ml @ 100 mls/hr DAILY IV 10/16/24 10:00 10/17/24 09:59 100 MLS/HR Lactulose 30 ml Q6HR PO 10/16/24 08:15 10/17/24 06:16 30 ML Polyethylene Glycol 17 gm DAILYPRN PRN PO 10/16/24 08:15 Pantoprazole Sodium 40 mg BID IV 10/16/24 08:30 10/17/24 09:58 40 MG Sodium Bicarbonate 75 ml/ Dextrose 1,075 ml @ 75 mls/hr [id number] IV 10/16/24 11:15 10/17/24 02:30 75 MLS/HR Examination: LUNGS:Normal, CVS:Normal, MSK:Abnormal laboratory and microbiology Laboratory Tests 10/17/24 03:05 Test 10/17/24 03:05 Range/Units Serum Glucose 121 H 74-106 mg/dL Microbiology Date/Time Source Procedure Growth Status 10/16/24 17:40 Catheter Tip Aerobic Culture - Preliminary Resulted 10/16/24 02:35 Blood Blood Culture - Preliminary NO GROWTH AFTER 24 HOURS OF INCUBATION. Resulted 10/14/24 22:10 Voided Urine Urine Culture - Preliminary Resulted 10/10/24 16:45 Sputum Expectorated Sputum Gram Stain - Final Complete 10/10/24 16:45 Sputum Expectorated Sputum Respiratory Culture - Final Complete Problem List/Assessment/Plan Problem List/Assessment/Plan Acute kidney injury multifactorial hemodynamically mediated, FeNa < 1% Acute respiratory failure, patient intubated on ventilator Vancomycin nephrotoxicity Septic shock Acute CVA MRSA bacteremia Bacterial endocarditis Lower extremity MRSA wound infection BPH status post TURP with indwelling Kan catheter d History of methamphetamine abuse Hypoalbuminemia Metabolic acidosis Hypernatremia due to insensible water loss Recommendations Kidney function slightly improved Increase urine output IVF with bicarb Bumex IV 1 milligram/hour Kan catheter Strict I&Os Discontinue vancomycin Albumin 25% IV piggyback IV pressors for blood pressure support We will continue to follow up and check closely for need for hemodialysis Plan discussed with: Other (Nurse) Dietary Evaluation Review Comments: 1) Add cardiac restriction to 60g CCHO diet 2) Initiate Glucerna qd. Encourage optimal PO intake 3) Follow-up with urology and surgery 4) Follow-up with bilingual social worker r/t methamphetamine abuse 5) Continue to monitor I&O, labs, and skin integrity Expected Outcomes/Goals: 1) appetite and labs to improve 2) wound to improve 3) f/u in 3-5 days NATHALIA JOSEPH MD Oct 17, 2024 10:25
[2024-10-17] MEDS: FLEET ENEMA(ADULT) 135 ML PR ONE (12:36)
--- NOTE | 2024-10-17 15:18 | DVHPNRES ---
Progress Note Date Seen: Oct 17, 2024 Resident Creating Document: GAURI IGNACIO RESIDENT Medical Necessity Reason Pt with a Central, PICC or Fol: No Subjective Review of Systems Patient is a 39-year-old male with past medical history of diabetes mellitus, MRSA of the urine, hyperlipidemia, and methamphetamine abuse presented to [facility] ED with complaint of fever. Patient reports he has been experiencing fever, associated with generalized weakness, abdominal pain, presents with Kan catheter in place due to recent prostate surgery. Patient was seen and evaluated in the ED, laboratory data shows WBC 6.1, hemoglobin 9.5, hematocrit 28.7, platelets 203, sodium 130, potassium 4.0, BUN 23, creatinine 1.12, glucose 382, calcium 8.5, albumin 3.1, blood pressure 110/70, heart rate 136 trending down to 96, temperature 103.2 F trending down to 97.6 F, O2 saturation 95% on room air. Abdomen/pelvis CT revealing evidence of left sacroiliitis with gas and fluid extending into left pelvic muscles likely representing abscess; rectal wall thickening correlate for symptoms of proctitis; Kan catheter decompressed urinary bladder with wall thickening; hypodense appearance of the mildly enlarged prostate, cystitis and prostatitis or possible. Patient was started on IV antibiotic regimen vancomycin, 10/03: Patient has very high fevers up to 103, CT showing left sacroiliitis with gas fluid in 2 left pelvic muscles possible abscess. We will consult surgery. There is also proctitis and bladder wall thickening. We will continue broad- spectrum IV antibiotics. ?Concern of IVDU ,. Patient is tremulous mildly we will continue watching for alcohol withdrawal. We will monitor. We will need UDS. Significant hyperglycemia, diabetes likely complicating and/or causing wound/healing. Patient had recent prostate surgery and Urology consult placed. 10/04: DC patient's culture came VAC MRSA, already on vancomycin. Continue IV antibiotics. We will start Lantus 20 HS,. Continue present therapy 10/05: Patient appears altered today, had some visitors prior. Per RN patient has been normal for that. We will get stat CT, UDS and we will continue ongoing treatment and workup. Surgery and Urology both recommend continuing IV antibiotics, IR consult for possible drainage. Initial CT head negative, UDS negative. Patient continues to be confused had a fall. Repeating head CT again. Getting stat portable chest x-ray, repeat CBC CMP, TSH, ammonia, ABG stat, at sitter one-to-one, neurology consult for altered mental status 10/06: 2nd CT yesterday showed left MCA territory stroke. Patient's blood cultures continue to, with MRSA vanc sensitive. Continuing vanc. I am suspicious of endocarditis. We will get echocardiogram continue vanc. Not totally convinced of stroke causing confusion. Confusion/encephalopathy might be from sepsis, or other causes. We will hold off lumbar puncture right now and have follow up with Neurology to rule out meningitis/HSV encephalitis. Tomorrow we will get HIV/trapped antibody test. Start aspirin Plavix, statin, echo. 10/07: Echo is negative for vegetations, blood cultures were redrawn pending. Neurology agrees with LP. Neurology also agrees with ETHEL. Consult placed. Treponemal antibody/HIV pending. Yesterday we restarted patient's bipolar medication Abilify. Continuing vanc/ceftriaxone/metronidazole. Pending official PATTERNMAKER ALL AROUND, neurology is doing aspirin only, Plavix discontinued for cva, continue Lipitor... Using Haldol and Ativan prn to control agitation, 10/08: Patient continues to require Ativan due to behavioral issues due to sepsis encephalopathy on top of baseline behavioral bipolar disorder. Taking patient for LP today likely, cardiology is holding off ETHEL evaluation given patient is encephalopathic, patient's blood cultures 3rd time are both with early signs of Gram-positive cocci. Urology is getting MRI pelvis to evaluate for history of prostatic abscess. CT right great toe yesterday with chronic changes from osteomyelitis, this wound also showed MRSA. Pharmacy has some concern of vancomycin having low MAC. At this point it is unclear source of MRSA with recurrent MRSA, we will consult ID and continue to wait for improvement of patient's mental status to get ETHEL as concern for endocarditis emboli remains very possible given patient had left MCA stroke with clean corotids/vasculature. 10/09: Patient has bipolar, unable to make decisions, does not understand the severity of illness. Continuing behavioral control with the Haldol and Ativan. Holding off LP patient is agitated unable to follow up commands, same reason holding up ETHEL, some reason holding MRI. Vanc is at appropriate level but no ID consult available. Continues to have MRSA bacteremia, we will repeat culture.. 10/10: Patient is still remaining agitated, encephalopathic. Now having low- grade fevers. Start rectal Tylenol, psych has seen yesterday recommending ODT Zyprexa, we will do IM Haldol 5 mg q.6 scheduled, use Ativan 2 mg q.2h for breakthrough agitation. With continued positive blood culture despite therapeutic vanc levels, no ID consult, we will add 2nd MRSA coverage linezolid. Maintain sitter bedside. - later in PM, patient nonresponsive, abg with hyperventilation, cxr unconcerning (no septic nodules...), also having higher temps. despite no ativan/haldol, patient was nonresponsive, concern for airway protection, pt is intubated and R IJ cvc inserted. repeat CT with continued L mca stroke. started asa plavix. continue zyvox, vancomycin, ctx/flagyl. on sunday, will reassess ethel / LP, ID consult still pending. neuro following. family updated. pulm for vent managment. 10/11-10/12 - weekend coverage. developed vanc JAYLEEN , now nephrology onboard. changed vanc to dapto. 10/13: jayleen continues, anuric, nephrology following. still pending ID consult. cards aware for ETHEL. neurology to follow and need clearance from MRI brain and MRI pelvis today (there is no sign of metal in oral cavity, defer to mri team eval), neurology to clear for LP. Patient was seen and examined in the ICU on the bedside. He is on mechanical ventilation with FiO2 30%, peep 5, tidal volume 500 mL, respiratory rate 20. Patient had an ETHEL on 10/14/24 and found mitral valve vegetation with normal ejection fraction. s/p debridement of right foot ulcer. MRI of the head without contrast demonstrated large area of diffusion restriction of the left posterior temporal lobe and left parietal lobe, small area of punctate infarction along the right posterior frontal lobe to parietal lobe and imaging pattern may be compatible with embolic phenomenon. Objective vital signs Vital Sign Date Time Temp Pulse Resp B/P (MAP) Pulse Ox O2 Delivery O2 Flow Rate FiO2 10/17/24 14:00 88 10/17/24 14:00 30 10/17/24 14:00 24 96 Mechanical Ventilator+ 10/17/24 13:52 121/81 (94) 10/17/24 12:00 97.9 97.9 10/15/24 20:00 0 Total Intake and Output 10/16/24 10/16/24 10/17/24 15:00 23:00 07:00 Intake Total 1510.0 ml 1296.0 ml 1242.0 ml Output Total 1000 ml 2000 ml Balance 1510.0 ml 296.0 ml -758.0 ml medications Current Medications Medications Dose Ordered Sig/Dion Route Start Time Stop Time Status Last Admin Dose Admin Acetaminophen 650 mg Q6HP PRN [place] 10/10/24 10:00 10/10/24 15:18 650 MG Midazolam HCl 50 ml @ 1 mls/hr Q24H IV 10/10/24 17:15 10/17/24 10:57 6 MLS/HR Fentanyl Citrate 250 ml @ 2.5 mls/hr Q24H IV 10/10/24 17:15 10/17/24 03:43 22.5 MLS/HR Propofol 100 ml @ 2.496 mls/ hr Q24H IV 10/10/24 17:15 Norepinephrine Bitartrate 250 ml @ 3.75 mls/hr Q24H IV 10/10/24 17:45 10/15/24 04:04 3.75 MLS/HR Diagnostic Test (Pha) 1 strip Q6HR 10/11/24 00:00 10/17/24 12:28 1 STRIP Insulin Human Regular FOLLOW SLIDING SCALE Q6HR SC 10/11/24 00:00 10/17/24 12:28 2 UNITS Dextrose 50 ml UD IV 10/10/24 22:00 Amino Acids 0 ml @ 0 mls/hr PER PHARMACY IV 10/10/24 19:00 UNV Enteral Nutritional Formula 1,000 ml 40ML/HR GT 10/10/24 21:15 10/15/24 21:24 1,000 ML Daptomycin 750 mg/ Sodium Chloride 50 ml @ 100 mls/hr DAILY IV 10/14/24 10:00 10/17/24 09:23 100 MLS/HR Bumetanide 12.5 mg/Miscellaneous 50 ml @ 4 mls/hr [id number] IV 10/15/24 13:00 10/17/24 06:42 4 MLS/HR Ceftaroline Fosamil 400 mg/ Sodium Chloride 250 ml @ 250 mls/hr Q8H IV 10/15/24 18:00 10/17/24 09:58 250 MLS/HR Micafungin Sodium 100 mg/Sodium Chloride 100 ml @ 100 mls/hr DAILY IV 10/16/24 10:00 10/17/24 09:59 100 MLS/HR Lactulose 30 ml Q6HR PO 10/16/24 08:15 10/17/24 12:28 30 ML Polyethylene Glycol 17 gm DAILYPRN PRN PO 10/16/24 08:15 Pantoprazole Sodium 40 mg BID IV 10/16/24 08:30 10/17/24 09:58 40 MG Sodium Bicarbonate 75 ml/ Dextrose 1,075 ml @ 75 mls/hr [id number] IV 10/16/24 11:15 10/17/24 02:30 75 MLS/HR Examination Examination General: RASS -3, afebrile, mucosae are moist Cardiovascular: Normal S1 and S2. No murmurs, gallops or rubs Respiratory: Mechanically assisted ventilation, equal bilateral airway entree. Clear lung sounds on auscultation Abdomen: Soft, nontender, no organomegaly, sluggish bowel sounds MSK/skin: Mobilization of limbs cannot be evaluated. Skin is dry and warm. bilateral pedal edema +, S/P rt toe debridement and covered with dressing. Neurological: Orientation cannot be assessed. No apparent motor no sensitive deficits. Pupils are isocoric and reactive laboratory and microbiology Laboratory Tests 10/17/24 03:05 Test 10/17/24 03:05 Range/Units Serum Glucose 121 H 74-106 mg/dL Microbiology Date/Time Source Procedure Growth Status 10/16/24 17:40 Catheter Tip Aerobic Culture - Preliminary Resulted 10/16/24 09:39 Penis Aerobic Culture - Preliminary Resulted 10/16/24 02:35 Blood Blood Culture - Preliminary NO GROWTH AFTER 24 HOURS OF INCUBATION. Resulted 10/14/24 22:10 Voided Urine Urine Culture - Preliminary Resulted 10/10/24 16:45 Sputum Expectorated Sputum Gram Stain - Final Complete 10/10/24 16:45 Sputum Expectorated Sputum Respiratory Culture - Final Complete Labs and/or images reviewed: Labs reviewed by me, Image(s) reviewed by me Problem List/Assessment/Plan Problem List/Assessment/Plan Assessment and plan: NEURO: Acute metabolic encephalopathy secondary to ischemic stroke Possible septic emboli due to persistent MRSA bacteremia History of Bipolar disorder RASS score: -3 - CT head without contrast demonstrated acute left MCA stroke - MRI of the head without contrast demonstrated large area of diffusion restriction of the left posterior temporal lobe and left parietal lobe, small area of punctate infarction along the right posterior frontal lobe to parietal lobe and imaging pattern may be compatible with embolic phenomenon. - continue aspirin 81 mg and Plavix 75 mg daily CARDIOVASCULAR: Acute infective endocarditis of mitral valve Possible chronic diastolic heart failure with preserved ejection fraction - ETHEL on 10/14/2024 demonstrated mitral valve, structurally normal, anterior leaflet has a 0.8 cm vegetation with a stalk. 0.8 X 0.4 cm, no significant MR or abscess is noted - TTE revealed EF 45-50%, anteroseptal hypokinesis, biatrial enlargement - Infectious disease on board - Continue IV ceftaroline and daptomycin PULMONARY: Rt sided opacity due to possible mucus plug/volume overload GASTROENTEROLOGY: Ruled out ileus Moderate to Severe colonic volume of stool - lactulose 30 mL q6 hr through G-tube daily - Miralax powder daily GENITOURINARY: JAYLEEN secondary to vancomycin toxicity Possible prostatic abscess, history of recent prostate surgery Acute complicated cystitis - CT abdomen pelvis demonstrated evidence of left sacroiliitis with gas and fluid extending into left pelvic muscles likely representing abscess. Suboptimal characterization due to lack of contrast. Bilateral inguinal adenopathy is likely reactive. Rectal wall thickening, correlate for symptoms of proctitis. - pending MRI of the pelvis - IV Bumex drip - D5 W with sodium bicarbonate at 100 mL/hours - Continue IV ceftaroline and daptomycin - ordered CT abdomen pelvis without contrast ENDOCRINE: Type 2 diabetes mellitus, hemoglobin A1c 13.2 Diabetic foot ulcer of right toe - CT right foot without contrast showed erosive changes involved proximal and distal phalanx with involvement of IP joint, possible osteomyelitis/septic arthritis, deep 1st digit plantar ulceration - scheduled for right foot I and D tomorrow - sliding scale of insulin METABOLIC: Moderate Protein calorie malnutrition, albumin 2.1 Hyperphosphatemia secondary to JAYLEEN Hypomagnesemia Metabolic acidosis due to JAYLEEN HEME: Acute on Chronic normocytic anemia secondary to dilutional versus anticoagulant use - 1 unit PRBC given - Hold DVT prophylaxis - Monitor H&H INFECTIOUS DISEASE: 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 Diabetic foot ulcer of right great toe Possible Prostatic abscess Acute Complicated cystitis Acute proctitis - Continue IV ceftaroline and daptomycin - new blood culture preliminary report demonstrated Gram-positive cocci in clusters - CT abdomen pelvis without contrast on 10/16/2024 showed foci of air at the left psoas muscle with erosive changes at the left anterior sacroiliac joint. Findings are concerning for acute osteomyelitis/septic arthritis with left psoas muscle abscess DIET: Tube feeding DVT prophylax: SCD GI prophylaxis: Protonix Bowel regimen: Lactulose Code status: Full code LINES/DRAINS/ACCESS: ETT: Intubated on 10/10/2024 IV access: Left IJ placed on 10/16/24 Drips: Levophed, Versed, fentanyl Kan catheter: Placed on 10/02/2024 DISPOSITION: ICU Patient's status discussed with narinder, childbirth and infant care teacher time spent more than 81 minutes, including patient care, chart review, and updating the family. Excluding any procedures. Plan discussed with Dr. Carranza Plan discussed with: Other (Narinder, RN) My Orders My Orders Orders - GAURI IGNACIO Procedure Category Date Status Time Chest Portable XY 10/16/24 Resulted 17:10 Routine Bacterial POOJA 10/16/24 In Process Culture 18:00 Chest Portable XY 10/17/24 Resulted 04:00 Abg W/ Co-Ox RT 10/17/24 Logged 04:00 Dietary Evaluation Review Comments: 1) Add cardiac restriction to 60g CCHO diet 2) Initiate Glucerna qd. Encourage optimal PO intake 3) Follow-up with urology and surgery 4) Follow-up with psych social worker r/t methamphetamine abuse 5) Continue to monitor I&O, labs, and skin integrity Expected Outcomes/Goals: 1) appetite and labs to improve 2) wound to improve 3) f/u in 3-5 days GAURI IGNACIO RESIDENT Oct 17, 2024 15:18
--- NOTE | 2024-10-17 17:07 | DVHPN2 ---
Consult Progress Note Date Seen: Oct 17, 2024 Objective vital signs Vital Sign Date Time Temp Pulse Resp B/P (MAP) Pulse Ox O2 Delivery O2 Flow Rate FiO2 10/17/24 16:45 88 24 116/80 (92) 97 10/17/24 16:00 97.6 97.6 10/17/24 16:00 Mechanical Ventilator+ 30 30 10/15/24 20:00 0 Total Intake and Output 10/16/24 10/16/24 10/17/24 15:00 23:00 07:00 Intake Total 1510.0 ml 1296.0 ml 1242.0 ml Output Total 1000 ml 2000 ml Balance 1510.0 ml 296.0 ml -758.0 ml medications Current Medications Medications Dose Ordered Sig/Dion Route Start Time Stop Time Status Last Admin Dose Admin Acetaminophen 650 mg Q6HP PRN [place] 10/10/24 10:00 10/10/24 15:18 650 MG Midazolam HCl 50 ml @ 1 mls/hr Q24H IV 10/10/24 17:15 10/17/24 10:57 6 MLS/HR Fentanyl Citrate 250 ml @ 2.5 mls/hr Q24H IV 10/10/24 17:15 10/17/24 15:16 22.5 MLS/HR Propofol 100 ml @ 2.496 mls/ hr Q24H IV 10/10/24 17:15 Norepinephrine Bitartrate 250 ml @ 3.75 mls/hr Q24H IV 10/10/24 17:45 10/15/24 04:04 3.75 MLS/HR Diagnostic Test (Pha) 1 strip Q6HR 10/11/24 00:00 10/17/24 12:28 1 STRIP Insulin Human Regular FOLLOW SLIDING SCALE Q6HR SC 10/11/24 00:00 10/17/24 12:28 2 UNITS Dextrose 50 ml UD IV 10/10/24 22:00 Amino Acids 0 ml @ 0 mls/hr PER PHARMACY IV 10/10/24 19:00 UNV Enteral Nutritional Formula 1,000 ml 40ML/HR GT 10/10/24 21:15 10/15/24 21:24 1,000 ML Daptomycin 750 mg/ Sodium Chloride 50 ml @ 100 mls/hr DAILY IV 10/14/24 10:00 10/17/24 09:23 100 MLS/HR Bumetanide 12.5 mg/Miscellaneous 50 ml @ 4 mls/hr [id number] IV 10/15/24 13:00 10/17/24 06:42 4 MLS/HR Ceftaroline Fosamil 400 mg/ Sodium Chloride 250 ml @ 250 mls/hr Q8H IV 10/15/24 18:00 10/17/24 09:58 250 MLS/HR Micafungin Sodium 100 mg/Sodium Chloride 100 ml @ 100 mls/hr DAILY IV 10/16/24 10:00 10/17/24 09:59 100 MLS/HR Lactulose 30 ml Q6HR PO 10/16/24 08:15 10/17/24 12:28 30 ML Polyethylene Glycol 17 gm DAILYPRN PRN PO 10/16/24 08:15 Pantoprazole Sodium 40 mg BID IV 10/16/24 08:30 10/17/24 09:58 40 MG Sodium Bicarbonate 75 ml/ Dextrose 1,075 ml @ 75 mls/hr [id number] IV 10/16/24 11:15 10/17/24 16:42 75 MLS/HR laboratory and microbiology Laboratory Tests 10/17/24 03:05 Test 10/17/24 03:05 Range/Units Serum Glucose 121 H 74-106 mg/dL GEN: Patent sedated and intubated. HEENT: NC/AT; MMM. CV: RRR, regular rhythm LUNGS: CTAB, no w/r/c. ABD: Soft, NT/ND, NBS, no masses or organomegaly. EXT: skin Warm, well perfused. no rashes. No clubbing, cyanosis, or edema. Right toe wrapped in gauze, chronic ulcer, checked the wounds in the sacrum and the toe unremarkable. NEURO: Sedated and intubated. Problem List/Assessment/Plan Problem List/Assessment/Plan Mr. Velazquez is a 39-year-old male with a history of insulin-dependent diabetes mellitus, GERD, bipolar disorder, schizophrenia, chronic diabetic ulcer, dyslipidemia, MRSA urinary infection, benign prostatic hyperplasia, and methamphetamine abuse, who presented to [facility] on 10/02/2024 with generalized weakness, fever, and abdominal discomfort. He required endotracheal intubation, low-dose vasopressor support, and chemical sedation for sepsis and persistent MRSA bacteremia. Cardiology was consulted for possible subacute endocarditis, with plans for transesophageal echocardiogram (TIM), though altered level of consciousness (ALOC) complicates evaluation. ECG showed sinus tachycardia at 133 bpm, and inflammatory markers were elevated. Imaging revealed a pelvic abscess, and urinalysis was suggestive of a UTI. Blood cultures from 10/02, 10/03, and 10/04 remained positive for MRSA, with the most recent on 10/09 still showing persistent bacteremia. HIV, hepatitis B and C, and syphilis testing were negative. The consultation was requested by Dr. Corbin for management of sepsis, pelvic abscess, recurrent MRSA bacteremia, and evaluation for endocarditis. Assessment: #Persistent bacteremia with subacute endocarditis TIM found MR with 0.8 cm vegetations. #CVA, left MCA territory, possible infectious cardioembolic source: MRI reveals a large area of restricted diffusion in the left posterior temporal and parietal lobes, along with small punctate infarcts in the right posterior frontal to parietal lobes, suggesting a pattern consistent with an embolic phenomenon noted on MRI. #MRI pelvis was not possible due to patient status, CT abdomen pelvis with contrast to locate intra pelvic source and further source control plan needs to be done taty. #Myositis: Foci of air at the left psoas muscle with erosive changes at the left anterior sacroiliac joint likely acute osteomyelitis/septic arthritis #Left psoas muscle abscess with local collection. Likely source of bacteremia. #Small to moderate amount of ascites. #Small to moderate left and small right pleural effusions. #Cephalic vein thrombus; ? infectious thromboembolism #Meningitis? Possible, HSV encephalitis possible?, unable to rule out vs thromboembolic stroke #Abdomen-pelvic abscess: Evidence of left sacroiliitis with gas and fluid extending into left pelvic muscles likely representing abscess #UTI due to possible hematogenous seeding of bacteremia #MRSA Aspiration Pneumonia, Trace bilateral pleural effusions with adjacent atelectasis and patchy posterior bibasilar pulmonary infiltrate with MRSA #Methamphetamine abuse, unknown status of IV drug abuse #Mild aortic root enlargement. Mild TR, No pericardial effusion masses or vegetations noted on TTE #Uncontrolled DM with HbA1C 13.2 #STD ruled out. Plan: #Repeat blood culture again tomorrows PM 10/18, Check weekly CK. #Continue Daptomycin with Ceftaroline for appropriate coverage intracerebral and extracerebral bacteremia as the risk of further intracerebral infection remains high. #Surgical consult for drainage of collection as found source control. #Daily 12 lead EKG to look for [place] prolongation >200 ms for higher risk of intracardiac abscess, an absolute surgical emergency. #Continue ICU level care with close follow up by Primary Team. Discussed with Dr. Solano. Infectious disease team will follow up. Plan discussed with: Patient Dietary Evaluation Review Comments: 1) Add cardiac restriction to 60g CCHO diet 2) Initiate Glucerna qd. Encourage optimal PO intake 3) Follow-up with urology and surgery 4) Follow-up with nursing home social worker r/t methamphetamine abuse 5) Continue to monitor I&O, labs, and skin integrity Expected Outcomes/Goals: 1) appetite and labs to improve 2) wound to improve 3) f/u in 3-5 days ADAM MARTINO RESIDENT Oct 17, 2024 17:07
--- NOTE | 2024-10-17 19:02 | DVHPN2 ---
Progress Note - Dictate Date Seen: Oct 17, 2024 Medical Necessity Reason Pt with a Central, PICC or Fol: No Subjective Mr. Velazquez is a 39 years old gentleman with a history of diabetes, GERD, bipolar disorder, schizophrenia, chronic diabetic ulcer, he was brought to the [facility] on 10/02/2024 with a chief company of fever, the patient is also noticed to have altered mental status, in the CT brain scan showed evidence suggestive of left MCA territory acute stroke. Because of fever, worsening mental status, that is was intubated and transferred to ICU on 10/10/24 I have seen and examined the patient, talked to his nurse, he is intubated, sedated, responsive to strong painful stimuli, pupils are small but reactive Versed 6 mg/hour, fentanyl 225 mcg/hour Blood culture, 10/02/2024: MRSA Blood culture, 10/03/2024: MRSA Blood culture, 10/04/2024: MRSA UDS, 10/03/2024: Ms. Amphetamine, 09/3124: Negative Urinalysis, 10/02/2024: WBC: 30, urine leukocyte esterase: Trace WBC/HB/PLT/MCV, 10/06/2024: 5/8.7/130/82.4, 10/10/2024: 6.5/8.1/211/84.5, , 10/11/2024: 6.1/7.5/176/85.9 PTT/INR/eight six, 10/02/2024: 12.3/1.18/34.4 Na, 10/07/2024: 144 10/10/2024: 151, 10/11/2024: 148 CMP, 10/05/2024: Unremarkable BUN/CR, 10/10/2024: 22/0.96, 10/11/2024: 32/1.94 GFR, 10/10/2024: 102, 10/11/2024: 44 Liver function tests, 10/11/2024: Unremarkable HGB A1c, 05/10/2023: >14 TG/HDL/LDL/HDL, 10/07/2024: 153/87/39/9 TIM, 10/14/2024: Left Ventricle: Normal LV size and function, LVEF estimated at 60% Right Ventricle: NOrmal RV size and function Left atrium: normal Right atrium: normal RA Left atrial appendage: no thrombus noted, d Aortic valve: trileaflet valve, no severe or AI Mitral Valve: structurally normal, anterior leaflet has 0. 8 cm vegetation with stalk . 0.8 x 0.4 cm, no significant MR is noted however, no abscess noted Tricuspid Valve: mild tricuspid regurgitaiton, no TS Pulmonic Valve: structurally normal, no severe PIor PS Interatrial septum: negative color flow for R to L shunt, negative bubble study Ascending aorta: no severe plaquing Echocardiogram, 10/06/2024: Technically good study. Off axis views. Limited views obtained. There appears to be biatrial enlargement and LV enlargement. Mild aortic root enlargement. Valves appear to be structurally normal. Left ventricular function is borderline at 45 to 50% anteroseptal hypokinesis.. Normal RV function. Mild TR. No pericardial effusion masses or vegetations. CT head, 10/05/2024: Acute left MCA territory infarct in left insula/temporal operculum/temporal lobe. No hemorrhage or mass effect Sedated, 10/09/2024: 1. Interval progression in evolution of left middle cerebral artery territory infarct involving the insula / temporal are operculum/ temporal lobe with associated loss of khoury-white matter differentiation and progressively diminished parenchymal attenuation. 2. No evidence of intracranial hemorrhage, mass effect, midline shift or herniation. 3. Chronic sequelae of microangiopathy and atrophic cortical volume loss. CT abdomen/pelvis, 10/06/2024: 1. Trace bilateral pleural effusions with adjacent atelectasis and patchy posterior bibasilar pulmonary infiltrate. 2. Hepatomegaly. 3. Excess retained colorectal stool and moderate proximal mechanical small-bowel obstruction. 4. Moderate gas and Kan catheter within the urinary bladder CT abdomen/pelvis, 10/16/2024: Foci of air at the left psoas muscle with erosive changes at the left anterior sacroiliac joint. Findings are concerning for acute osteomyelitis/septic arthritis with left psoas muscle abscess. Evaluated on this study is extremely limited due to lack of IV contrast and artifact. Suggest MRI with and without IV contrast for further evaluation. If MRI cannot be performed, contrast enhanced CT is suggested. Small to moderate amount of ascites. Extensive body wall edema. Small to moderate left and small right pleural effusions. Diabetes mellitus. Constipation. CTA head, neck, 10/05/2024: 1. No evidence of acute intracranial hemorrhage, mass effect or hydrocephalus. 2. No evidence of hemodynamically significant intracranial stenosis, proximal occlusion or aneurysm. 3. No evidence of hemodynamically significant cervical stenosis or dissection MRI head, 10/15/2024: 1. Large area of diffusion restriction of the left posterior temporal lobe and left parietal lobe. 2. Small areas of punctate infarction along the right posterior frontal lobe to parietal lobe. 3. Imaging pattern may be compatible with embolic phenomenon vital signs Vital Sign Date Time Temp Pulse Resp B/P (MAP) Pulse Ox O2 Delivery O2 Flow Rate FiO2 10/17/24 18:20 85 24 119/80 (93) 97 30 10/17/24 18:00 Mechanical Ventilator+ 10/17/24 16:00 97.6 97.6 10/15/24 20:00 0 Total Intake and Output 10/16/24 10/16/24 10/17/24 15:00 23:00 07:00 Intake Total 1510.0 ml 1296.0 ml 1242.0 ml Output Total 1000 ml 2000 ml Balance 1510.0 ml 296.0 ml -758.0 ml medications Current Medications Medications Dose Ordered Sig/Dion Route Start Time Stop Time Status Last Admin Dose Admin Acetaminophen 650 mg Q6HP PRN [place] 10/10/24 10:00 10/10/24 15:18 650 MG Midazolam HCl 50 ml @ 1 mls/hr Q24H IV 10/10/24 17:15 10/17/24 10:57 6 MLS/HR Fentanyl Citrate 250 ml @ 2.5 mls/hr Q24H IV 10/10/24 17:15 10/17/24 15:16 22.5 MLS/HR Propofol 100 ml @ 2.496 mls/ hr Q24H IV 10/10/24 17:15 Norepinephrine Bitartrate 250 ml @ 3.75 mls/hr Q24H IV 10/10/24 17:45 10/15/24 04:04 3.75 MLS/HR Diagnostic Test (Pha) 1 strip Q6HR 10/11/24 00:00 10/17/24 17:30 1 STRIP Insulin Human Regular FOLLOW SLIDING SCALE Q6HR SC 10/11/24 00:00 10/17/24 17:57 2 UNITS Dextrose 50 ml UD IV 10/10/24 22:00 Amino Acids 0 ml @ 0 mls/hr PER PHARMACY IV 10/10/24 19:00 UNV Enteral Nutritional Formula 1,000 ml 40ML/HR GT 10/10/24 21:15 10/15/24 21:24 1,000 ML Daptomycin 750 mg/ Sodium Chloride 50 ml @ 100 mls/hr DAILY IV 10/14/24 10:00 10/17/24 09:23 100 MLS/HR Bumetanide 12.5 mg/Miscellaneous 50 ml @ 4 mls/hr [id number] IV 10/15/24 13:00 10/17/24 17:29 4 MLS/HR Ceftaroline Fosamil 400 mg/ Sodium Chloride 250 ml @ 250 mls/hr Q8H IV 10/15/24 18:00 10/17/24 18:17 250 MLS/HR Micafungin Sodium 100 mg/Sodium Chloride 100 ml @ 100 mls/hr DAILY IV 10/16/24 10:00 10/17/24 09:59 100 MLS/HR Lactulose 30 ml Q6HR PO 10/16/24 08:15 10/17/24 18:16 30 ML Polyethylene Glycol 17 gm DAILYPRN PRN PO 10/16/24 08:15 Pantoprazole Sodium 40 mg BID IV 10/16/24 08:30 10/17/24 09:58 40 MG Sodium Bicarbonate 75 ml/ Dextrose 1,075 ml @ 75 mls/hr [id number] IV 10/16/24 11:15 10/17/24 16:42 75 MLS/HR objective General: the patient is well developed and nourished. No acute distress. Intubated MUSCULOSKELETAL EXAM: Chronic ulcer in the right big toe, a small skin lesion in the left big toe MENTAL STATUS: Subjective SPEECH, LANGUAGE, HIGHER CORTICAL FUNCTION: Subjective CRANIAL NERVES: Pupils are equal, round and reactive. There is doll's eye, corneal reflexes. No sign of facial weakness. He has gag reflexes SENSATION: Responsive to stroke painful stimuli MOTOR: Muscle tone feels normal, no spontaneous extremity movement REFLEXES: Deep tendon reflexes feel symmetrical. No pathological reflexes. CEREBELLAR/COORDINATION: Deferred GAIT/STATION: deferred laboratory and microbiology Laboratory Tests 10/17/24 03:05 Test 10/17/24 03:05 Range/Units Serum Glucose 121 H 74-106 mg/dL Problem List Altered mental status, secondary to Acute stroke Metabolic encephalopathy Rule out intracranial infection Acute respiratory failure Abnormal CT head Acute stroke Rule out encephalitis Prostatic abscess vs hematoma Rule out endocarditis Sepsis with MRSA Chronic diabetic wound Endocarditis Osteomyelitis History of substance abuse Assessment/Plan Monitoring Supportive treatment ICU care Stool occult blood Follow up blood tests Stabilize vitals Respiratory support/vent management Aspirin 81 mg daily (on hold) D/C Lipitor 20 mg daily (LDL: 39) IV antibiotics Haldol p.r.n. for agitation DVT prophylaxis/Lovenox (on hold) Infectious disease on case Need to quit substance abuse Okay to have lumbar puncture from neurologic point of view More recommendation per clinical course This medical document was created using an electronic medical record system with [employer] dictation system. Although this document has been carefully reviewed, there may still be some phonetic and typographical errors. These areas are purely typographical due to imperfections of the software programs, and do not reflect any compromise in the patient's medical care. Prognosis guarded Dietary Evaluation Review Comments: 1) Add cardiac restriction to 60g CCHO diet 2) Initiate Glucerna qd. Encourage optimal PO intake 3) Follow-up with urology and surgery 4) Follow-up with social work manager r/t methamphetamine abuse 5) Continue to monitor I&O, labs, and skin integrity Expected Outcomes/Goals: 1) appetite and labs to improve 2) wound to improve 3) f/u in 3-5 days Plan discussed with: Other CALEB PAYNE MD Oct 17, 2024 19:02
[2024-10-18] VITALS (101 sets, daily range): BP systolic 114–142; BP diastolic 69–92; PULSE 83–95; RESP 0–27; TEMP 97.8–98.7; O2SAT 93–99
[2024-10-18 03:45] LABS: Nucleated Red Blood Cells % 0.0 %
[2024-10-18 03:48] LABS: Hematocrit 23.7 % (41.0-53.0); Hemoglobin 8.3 g/dL (13.5-17.5); Mean Corpuscular Hemoglobin 28.8 pg (28.0-32.0); Mean Corpuscular Volume 81.8 fL (80.0-100.0)
[2024-10-18 03:53] LABS: Potassium 3.8 mmol/L (3.5-5.1); Sodium 142 mmol/L (136-145)
[2024-10-18 03:54] LABS: Anion Gap 10 (5-15); Carbon Dioxide 24 mmol/L (20-31)
[2024-10-18 03:59] LABS: BUN/Creatinine Ratio 15.9 (10.0-20.0)
[2024-10-18 04:01] LABS: Chloride 108 mmol/L (98-107)
[2024-10-18 04:02] LABS: Blood Urea Nitrogen 39 mg/dL (9-23); Calcium 7.3 mg/dL (8.7-10.4); Glucose 151 mg/dL (74-106)
--- NOTE | 2024-10-18 05:32 | DVH ---
CHEST RADIOGRAPH Indication: Mechanical Ventilation Technique: 1 view Comparison: XY CHEST PORTABLE on DOS: 10/17/24, XY CHEST PORTABLE on DOS: 10/17/24, XY CHEST PORTABLE o n DOS: 10/16/24, XY CHEST PORTABLE on DOS: 10/16/24, XY CHEST PORTABLE on DOS: 10/15/24 FINDINGS: Lines and Tubes: Slight difference in endotracheal tube positioning likely attributable to patient po sitioning/technique. Enteric tube courses midline subdiaphragmatically below field of view. Unchanged left IJ catheter. Lungs/Pleura: Unchanged. Cardiomediastinum: Unchanged. Other: Unchanged. IMPRESSION: 1. No significant change from the previous study. Support devices in similar position. Persistent bi lateral interstitial opacities and graded left mid to basilar opacity, likely a combination of airspa ce disease and pleural effusion.
[2024-10-18 08:33] LABS: Base Excess -1.1 mmol/L (-2.0-3.0)
--- NOTE | 2024-10-18 09:56 | DVHPN2 ---
Progress Note Date Seen: Oct 18, 2024 Medical Necessity Reason Pt with a Central, PICC or Fol: No Subjective Review of Systems: RESPIRATORY:Abnormal Other Systems: Patient seen and examined by myself today in follow-up, patient remained intubated on ventilator Objective vital signs Vital Sign Date Time Temp Pulse Resp B/P (MAP) Pulse Ox O2 Delivery O2 Flow Rate FiO2 10/18/24 08:30 92 24 126/80 (95) 95 30 10/18/24 06:00 Mechanical Ventilator+ 10/18/24 04:00 98.0 98.0 Total Intake and Output 10/17/24 10/17/24 10/18/24 15:00 23:00 07:00 Intake Total 1260.0 ml 1256.0 ml 1278.5 ml Output Total 1600 ml 1625 ml Balance 1260.0 ml -344.0 ml -346.5 ml medications Current Medications Medications Dose Ordered Sig/Dion Route Start Time Stop Time Status Last Admin Dose Admin Acetaminophen 650 mg Q6HP PRN [place] 10/10/24 10:00 10/10/24 15:18 650 MG Midazolam HCl 50 ml @ 1 mls/hr Q24H IV 10/10/24 17:15 10/18/24 03:23 6 MLS/HR Fentanyl Citrate 250 ml @ 2.5 mls/hr Q24H IV 10/10/24 17:15 10/18/24 01:28 22.5 MLS/HR Propofol 100 ml @ 2.496 mls/ hr Q24H IV 10/10/24 17:15 Norepinephrine Bitartrate 250 ml @ 3.75 mls/hr Q24H IV 10/10/24 17:45 10/15/24 04:04 3.75 MLS/HR Diagnostic Test (Pha) 1 strip Q6HR 10/11/24 00:00 10/18/24 05:46 1 STRIP Insulin Human Regular FOLLOW SLIDING SCALE Q6HR SC 10/11/24 00:00 10/18/24 05:45 2 UNITS Dextrose 50 ml UD IV 10/10/24 22:00 Amino Acids 0 ml @ 0 mls/hr PER PHARMACY IV 10/10/24 19:00 UNV Enteral Nutritional Formula 1,000 ml 40ML/HR GT 10/10/24 21:15 10/18/24 05:44 1,000 ML Daptomycin 750 mg/ Sodium Chloride 50 ml @ 100 mls/hr DAILY IV 10/14/24 10:00 10/17/24 09:23 100 MLS/HR Bumetanide 12.5 mg/Miscellaneous 50 ml @ 4 mls/hr [id number] IV 10/15/24 13:00 10/18/24 06:00 4 MLS/HR Ceftaroline Fosamil 400 mg/ Sodium Chloride 250 ml @ 250 mls/hr Q8H IV 10/15/24 18:00 10/18/24 09:29 250 MLS/HR Micafungin Sodium 100 mg/Sodium Chloride 100 ml @ 100 mls/hr DAILY IV 10/16/24 10:00 10/17/24 09:59 100 MLS/HR Lactulose 30 ml Q6HR PO 10/16/24 08:15 10/18/24 05:44 30 ML Polyethylene Glycol 17 gm DAILYPRN PRN PO 10/16/24 08:15 Pantoprazole Sodium 40 mg BID IV 10/16/24 08:30 10/18/24 09:28 40 MG Sodium Bicarbonate 75 ml/ Dextrose 1,075 ml @ 75 mls/hr [id number] IV 10/16/24 11:15 10/18/24 09:08 75 MLS/HR Examination: LUNGS:Normal, CVS:Normal, MSK:Normal laboratory and microbiology Laboratory Tests 10/18/24 03:04 Test 10/18/24 03:04 Range/Units Serum Glucose 151 H 74-106 mg/dL Microbiology Date/Time Source Procedure Growth Status 10/16/24 17:40 Catheter Tip Aerobic Culture - Preliminary Resulted 10/16/24 09:39 Penis Aerobic Culture - Preliminary Resulted 10/16/24 02:35 Blood Blood Culture - Preliminary NO GROWTH AFTER 48 HOURS OF INCUBATION. Resulted 10/14/24 22:10 Voided Urine Urine Culture - Preliminary Resulted 10/10/24 16:45 Sputum Expectorated Sputum Gram Stain - Final Complete 10/10/24 16:45 Sputum Expectorated Sputum Respiratory Culture - Final Complete Problem List/Assessment/Plan Problem List/Assessment/Plan Acute kidney injury multifactorial hemodynamically mediated, FeNa < 1% Acute respiratory failure, patient intubated on ventilator Vancomycin nephrotoxicity Septic shock Acute CVA MRSA bacteremia Bacterial endocarditis Lower extremity MRSA wound infection BPH status post TURP with indwelling Kan catheter d History of methamphetamine abuse Hypoalbuminemia Metabolic acidosis Hypernatremia due to insensible water loss Recommendations Kidney function slightly improved Increase urine output IVF with bicarb Bumex IV 1 milligram/hour Kan catheter Strict I&Os Discontinue vancomycin Albumin 25% IV piggyback IV pressors for blood pressure support We will continue to follow Plan discussed with: Other (Nurse) Dietary Evaluation Review Comments: 1) Add cardiac restriction to 60g CCHO diet 2) Initiate Glucerna qd. Encourage optimal PO intake 3) Follow-up with urology and surgery 4) Follow-up with social media marketing analyst r/t methamphetamine abuse 5) Continue to monitor I&O, labs, and skin integrity Expected Outcomes/Goals: 1) appetite and labs to improve 2) wound to improve 3) f/u in 3-5 days NATHALIA JOSEPH MD Oct 18, 2024 09:56
--- NOTE | 2024-10-18 10:35 | DVHPN2 ---
Progress Note - Dictate Date Seen: Oct 18, 2024 Medical Necessity Reason Pt with a Central, PICC or Fol: No vital signs Vital Sign Date Time Temp Pulse Resp B/P (MAP) Pulse Ox O2 Delivery O2 Flow Rate FiO2 10/18/24 08:30 92 24 126/80 (95) 95 30 10/18/24 06:00 Mechanical Ventilator+ 10/18/24 04:00 98.0 98.0 Total Intake and Output 10/17/24 10/17/24 10/18/24 15:00 23:00 07:00 Intake Total 1260.0 ml 1256.0 ml 1278.5 ml Output Total 1600 ml 1625 ml Balance 1260.0 ml -344.0 ml -346.5 ml medications Current Medications Medications Dose Ordered Sig/Dion Route Start Time Stop Time Status Last Admin Dose Admin Acetaminophen 650 mg Q6HP PRN [place] 10/10/24 10:00 10/10/24 15:18 650 MG Midazolam HCl 50 ml @ 1 mls/hr Q24H IV 10/10/24 17:15 10/18/24 03:23 6 MLS/HR Fentanyl Citrate 250 ml @ 2.5 mls/hr Q24H IV 10/10/24 17:15 10/18/24 01:28 22.5 MLS/HR Propofol 100 ml @ 2.496 mls/ hr Q24H IV 10/10/24 17:15 Norepinephrine Bitartrate 250 ml @ 3.75 mls/hr Q24H IV 10/10/24 17:45 10/15/24 04:04 3.75 MLS/HR Diagnostic Test (Pha) 1 strip Q6HR 10/11/24 00:00 10/18/24 05:46 1 STRIP Insulin Human Regular FOLLOW SLIDING SCALE Q6HR SC 10/11/24 00:00 10/18/24 05:45 2 UNITS Dextrose 50 ml UD IV 10/10/24 22:00 Amino Acids 0 ml @ 0 mls/hr PER PHARMACY IV 10/10/24 19:00 UNV Enteral Nutritional Formula 1,000 ml 40ML/HR GT 10/10/24 21:15 10/18/24 05:44 1,000 ML Daptomycin 750 mg/ Sodium Chloride 50 ml @ 100 mls/hr DAILY IV 10/14/24 10:00 10/17/24 09:23 100 MLS/HR Bumetanide 12.5 mg/Miscellaneous 50 ml @ 4 mls/hr [id number] IV 10/15/24 13:00 10/18/24 06:00 4 MLS/HR Ceftaroline Fosamil 400 mg/ Sodium Chloride 250 ml @ 250 mls/hr Q8H IV 10/15/24 18:00 10/18/24 09:29 250 MLS/HR Micafungin Sodium 100 mg/Sodium Chloride 100 ml @ 100 mls/hr DAILY IV 10/16/24 10:00 10/17/24 09:59 100 MLS/HR Lactulose 30 ml Q6HR PO 10/16/24 08:15 10/18/24 05:44 30 ML Polyethylene Glycol 17 gm DAILYPRN PRN PO 10/16/24 08:15 Pantoprazole Sodium 40 mg BID IV 10/16/24 08:30 10/18/24 09:28 40 MG Sodium Bicarbonate 75 ml/ Dextrose 1,075 ml @ 75 mls/hr [id number] IV 10/16/24 11:15 10/18/24 09:08 75 MLS/HR laboratory and microbiology Laboratory Tests 10/18/24 03:04 Test 10/18/24 03:04 Range/Units Serum Glucose 151 H 74-106 mg/dL Assessment/Plan Covering for Dr. Sanders Time Checker rounds Impression Acute hypoxemic respiratory failure Persistent MRSA bacteremia Altered mental status Septic shock Patient seen and examined in ICU Events On mechanical ventilation S/p intubation PEEP 5, FiO2 35% substance abuse MRSA bacteremia TIM .8 vegetation multiple sites of seeding pelvic abscess covered with abx per ID sx to follow for drainage continue Vent support Titrate to maintain sats 90% or above Sedation for vent synchrony Continue antibiotics F/u cultures and ID Bronchodilators Monitor renal function Monitor electrolytes Supplement as needed Pressors as needed for hemodynamic support To maintain a mean arterial pressure of 65 mmHg DVT prophylaxis prognosis very poor Critical care time 35 minutes Dietary Evaluation Review Comments: 1) Add cardiac restriction to 60g CCHO diet 2) Initiate Glucerna qd. Encourage optimal PO intake 3) Follow-up with urology and surgery 4) Follow-up with aids social worker r/t methamphetamine abuse 5) Continue to monitor I&O, labs, and skin integrity Expected Outcomes/Goals: 1) appetite and labs to improve 2) wound to improve 3) f/u in 3-5 days Plan discussed with: Other (rn) HEIDI DOMINGUEZ MD Oct 18, 2024 10:35
[2024-10-18] MEDS ORDERED: KETAMINE 50mg/ML 1ml syringe IM ONE (12:33)
--- NOTE | 2024-10-18 14:26 | DVHPN2 ---
Subjective The patient is seen and examined at bedside. Remained intubated.. No change overnight. Reviewed: Care Plan Changes from previous H/P or p: No Changes General: Per HPI Eyes: No Pain, No Vision change, No Conjunctivae inflammation, No Eyelid inflammation, No Other, No Redness ENT: No Ear pain, No Ear discharge, No Nose pain, No Nose discharge, No Nose congestion, No Mouth pain, No Mouth swelling, No Throat pain, No Throat swelling, No Other Cardiovascular: No Chest Pain, No Palpitations, No Orthopnea, No Paroxysmal Noc. Dyspnea, No Edema, No Lt Headedness, No Other Respiratory: No Cough, No Dry, No Shortness of breath, No SOB with excertion, No Wheezing, No Hemoptysis, No Pleuritic Pain, No Sputum, No Other Gastrointestinal: No Nausea, No Vomiting; Abdominal Pain; No Diarrhea, No Constipation, No Melena, No Hematochezia, No Other Genitourinary: No Dysuria, No Frequency, No Incontinence, No Hematuria, No Retention; Other (Kan catheter in place) Musculoskeletal: No other, No neck pain, No shoulder pain, No arm pain, No back pain, No hand pain, No leg pain, No foot pain Skin: No Rash, No Lesions, No Jaundice, No Bruising, No Other Objective Vitals Vital Signs Date Time Temp Pulse Resp B/P (MAP) Pulse Ox O2 Delivery O2 Flow Rate FiO2 10/18/24 13:15 89 24 139/88 (105) 96 10/18/24 12:18 30 10/18/24 12:15 98.7 98.7 10/18/24 08:25 Mechanical Ventilator+ Intake/Output Intake and Output 10/18/24 07:00 Intake Total 3902.0 ml Output Total 3225 ml Balance 677.0 ml Intake Oral 50 ml IV Total 3476.0 ml Tube Feeding 306 ml Other 70 ml Output Urine Total 3225 ml General Appearance: Other (Intubated, on vent,) HEENT: Atraumatic, PERRLA, EOMI, Mucous membr. moist/pink Neck: Supple Lungs: Clear to auscultation, Normal air movement Cardiovascular: Regular rate, Normal S1, Normal S2, No murmurs, Gallops, Rubs Abdomen: Normal bowel sounds, Soft, No tenderness Neuro: Cranial nerves 3-12 NL Psych/Mental Status: Mental status NL Medications Current Medications Medications Dose Ordered Sig/Dion Route Start Time Stop Time Status Last Admin Dose Admin Acetaminophen 650 mg Q6HP PRN ND 10/10/24 10:00 10/10/24 15:18 650 MG Midazolam HCl 50 ml @ 1 mls/hr Q24H IV 10/10/24 17:15 10/18/24 11:26 6 MLS/HR Fentanyl Citrate 250 ml @ 2.5 mls/hr Q24H IV 10/10/24 17:15 10/18/24 01:28 22.5 MLS/HR Propofol 100 ml @ 2.496 mls/ hr Q24H IV 10/10/24 17:15 Norepinephrine Bitartrate 250 ml @ 3.75 mls/hr Q24H IV 10/10/24 17:45 10/15/24 04:04 3.75 MLS/HR Diagnostic Test (Pha) 1 strip Q6HR 10/11/24 00:00 10/18/24 13:01 1 STRIP Insulin Human Regular FOLLOW SLIDING SCALE Q6HR SC 10/11/24 00:00 10/18/24 13:13 4 UNITS Dextrose 50 ml UD IV 10/10/24 22:00 Amino Acids 0 ml @ 0 mls/hr PER PHARMACY IV 10/10/24 19:00 UNV Enteral Nutritional Formula 1,000 ml 40ML/HR GT 10/10/24 21:15 10/18/24 05:44 1,000 ML Daptomycin 750 mg/ Sodium Chloride 50 ml @ 100 mls/hr DAILY IV 10/14/24 10:00 10/18/24 11:13 100 MLS/HR Bumetanide 12.5 mg/Miscellaneous 50 ml @ 4 mls/hr [id number] IV 10/15/24 13:00 10/18/24 06:00 4 MLS/HR Ceftaroline Fosamil 400 mg/ Sodium Chloride 250 ml @ 250 mls/hr Q8H IV 10/15/24 18:00 10/18/24 09:29 250 MLS/HR Micafungin Sodium 100 mg/Sodium Chloride 100 ml @ 100 mls/hr DAILY IV 10/16/24 10:00 10/18/24 13:22 100 MLS/HR Lactulose 30 ml Q6HR PO 10/16/24 08:15 10/18/24 13:20 30 ML Polyethylene Glycol 17 gm DAILYPRN PRN PO 10/16/24 08:15 Pantoprazole Sodium 40 mg BID IV 10/16/24 08:30 10/18/24 09:28 40 MG Sodium Bicarbonate 75 ml/ Dextrose 1,075 ml @ 75 mls/hr [id number] IV 10/16/24 11:15 10/18/24 09:08 75 MLS/HR Laboratory Results Laboratory Tests 10/18/24 03:04 Chemistry Test 10/18/24 03:04 Calcium Level 7.3 mg/dL (8.7-10.4) L Urinalysis Test 10/14/24 10:42 10/14/24 22:10 Urine Sodium 21 mmol/L (40-220) L Urine Color Light-orange (Yellow) Urine Clarity Ex.turbid (Clear) Urine pH 5.0 (5.0-9.0) Urine Specific [place] 1.017 (1.001-1.035) Urine Protein 1+ (Negative) H Urine Ketones Negative (Negative) Urine Blood 2+ /uL (Negative) H Urine Nitrite Negative (Negative) Urine Bilirubin Negative (Negative) Urine Urobilinogen Normal mg/dL (Negative) Urine Leukocyte Esterase 3+ /uL (Negative) Urine RBC 416 /hpf (0 - 3) Urine Microscopic WBC 354 /HPF (0-3) H Urine Squamous Epithelial Cells None seen /hpf (<5) Urine Bacteria Mod /hpf (None Seen) H Urine Hyaline Casts Many /lpf (0 - 2) Urine Mucus Few (None Seen) Urine Yeast with Hyphae Present /hpf Urine Yeast (Budding) Loaded /hpf (None Seen) Urine Creatinine 168.66 mg/dL (30.0-125.0) H Urine Protein/Creatinine Ratio 0.94 Urine Glucose Normal mg/dL (Normal) Urine Total Protein 158.7 mg/dL (1-14) H Blood Gas Results Test 10/18/24 07:39 Arterial Blood pH 7.385 (7.350-7.450) FiO2 % 30.0 Microbiology Microbiology Date/Time Source Procedure Growth Status 10/16/24 17:40 Catheter Tip Aerobic Culture - Preliminary Resulted 10/16/24 09:39 Penis Aerobic Culture - Preliminary Resulted 10/16/24 02:35 Blood Blood Culture - Preliminary NO GROWTH AFTER 48 HOURS OF INCUBATION. Resulted 10/14/24 22:10 Voided Urine Urine Culture - Final Presumptive Hellen tropicalis Complete 10/10/24 16:45 Sputum Expectorated Sputum Gram Stain - Final Complete 10/10/24 16:45 Sputum Expectorated Sputum Respiratory Culture - Final Complete Labs and/or images reviewed: Labs reviewed by me Assessment/Plan Assessment/Plan NEURO: Acute metabolic encephalopathy secondary to ischemic stroke Possible septic emboli due to persistent MRSA bacteremia History of Bipolar disorder RASS score: -3 - CT head without contrast demonstrated acute left MCA stroke - MRI of the head without contrast demonstrated large area of diffusion restriction of the left posterior temporal lobe and left parietal lobe, small area of punctate infarction along the right posterior frontal lobe to parietal lobe and imaging pattern may be compatible with embolic phenomenon. - continue aspirin 81 mg and Plavix 75 mg daily CARDIOVASCULAR: Acute infective endocarditis of mitral valve Possible chronic diastolic heart failure with preserved ejection fraction - TIM on 10/14/2024 demonstrated mitral valve, structurally normal, anterior leaflet has a 0.8 cm vegetation with a stalk. 0.8 X 0.4 cm, no significant MR or abscess is noted - TTE revealed EF 45-50%, anteroseptal hypokinesis, biatrial enlargement - Infectious disease on board - Continue IV ceftaroline and daptomycin PULMONARY: Rt sided opacity due to possible mucus plug/volume overload GASTROENTEROLOGY: Ruled out ileus Moderate to Severe colonic volume of stool - lactulose 30 mL q6 hr through G-tube daily - Miralax powder daily GENITOURINARY: JAYLEEN secondary to vancomycin toxicity Possible prostatic abscess, history of recent prostate surgery Acute complicated cystitis - CT abdomen pelvis demonstrated evidence of left sacroiliitis with gas and fluid extending into left pelvic muscles likely representing abscess. Suboptimal characterization due to lack of contrast. Bilateral inguinal adenopathy is likely reactive. Rectal wall thickening, correlate for symptoms of proctitis. - pending MRI of the pelvis - IV Bumex drip - D5 W with sodium bicarbonate at 100 mL/hours - Continue IV ceftaroline and daptomycin - ordered CT abdomen pelvis without contrast ENDOCRINE: Type 2 diabetes mellitus, hemoglobin A1c 13.2 Diabetic foot ulcer of right toe - CT right foot without contrast showed erosive changes involved proximal and distal phalanx with involvement of IP joint, possible osteomyelitis/septic arthritis, deep 1st digit plantar ulceration - scheduled for right foot I and D tomorrow - sliding scale of insulin METABOLIC: Moderate Protein calorie malnutrition, albumin 2.1 Hyperphosphatemia secondary to JAYLEEN Hypomagnesemia Metabolic acidosis due to JAYLEEN HEME: Acute on Chronic normocytic anemia secondary to dilutional versus anticoagulant use - 1 unit PRBC given - Hold DVT prophylaxis - Monitor H&H INFECTIOUS DISEASE: 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 Diabetic foot ulcer of right great toe Possible Prostatic abscess Acute Complicated cystitis Acute proctitis - Continue IV ceftaroline and daptomycin - new blood culture preliminary report demonstrated Gram-positive cocci in clusters - CT abdomen pelvis without contrast on 10/16/2024 showed foci of air at the left psoas muscle with erosive changes at the left anterior sacroiliac joint. Findings are concerning for acute osteomyelitis/septic arthritis with left psoas muscle abscess DIET: Tube feeding DVT prophylax: SCD GI prophylaxis: Protonix Bowel regimen: Lactulose Code status: Full code LINES/DRAINS/ACCESS: ETT: Intubated on 10/10/2024 IV access: Left IJ placed on 10/16/24 Drips: Levophed, Versed, fentanyl Kan catheter: Placed on 10/02/2024 Continuing current management. Hopefully can extubate soon. Continuing CPAP trial Critical care spent for this case is 38 minute This medical document was created using an electronic medical record system with [employer] direct computerized dictation system. Although this document has been carefully reviewed, there may still be some phonetic and typographical errors. These areas are purely typographical due to imperfections of the software programs, and do not reflect any compromise in the patient's medical care. Plan discussed with: Other (RN) Date of Service: Oct 18, 2024 Billing Provider: RUCHI IRVING MD Common Visit Codes: 46850-[id number] CARE 30-74 MIN RUCHI IRVING MD Oct 18, 2024 14:26
--- NOTE | 2024-10-18 14:35 | DVHPN2 ---
Progress Note - Dictate Date Seen: Oct 18, 2024 Medical Necessity Reason Pt with a Central, PICC or Fol: No Subjective Patient was seen and examined in the ICU on the bedside. He is on mechanical ventilation with FiO2 30%, peep 5, tidal volume 500 mL, respiratory rate 20. Patient had an TIM on 10/14/24 and found mitral valve vegetation with normal ejection fraction. s/p debridement of right foot ulcer. MRI of the head without contrast demonstrated large area of diffusion restriction of the left posterior temporal lobe and left parietal lobe, small area of punctate infarction along the right posterior frontal lobe to parietal lobe No new complaints Patient is still intubated sedated; no bowel movement yet There was no active GI bleeding, hemoglobin stable at 8.3 S/P 1 unit PRBC vital signs Vital Sign Date Time Temp Pulse Resp B/P (MAP) Pulse Ox O2 Delivery O2 Flow Rate FiO2 10/18/24 13: 89 24 139/88 (105) 96 10/18/24 12:18 30 10/18/24 12:15 98.7 98.7 10/18/24 08:25 Mechanical Ventilator+ Total Intake and Output 10/17/24 10/17/24 10/18/24 15:00 23:00 07:00 Intake Total 1260.0 ml 1256.0 ml 1386.0 ml Output Total 1600 ml 1625 ml Balance 1260.0 ml -344.0 ml -239.0 ml medications Current Medications Medications Dose Ordered Sig/Dion Route Start Time Stop Time Status Last Admin Dose Admin Acetaminophen 650 mg Q6HP PRN SD 10/10/24 10:00 10/10/24 15:18 650 MG Midazolam HCl 50 ml @ 1 mls/hr Q24H IV 10/10/24 17:15 10/18/24 11:26 6 MLS/HR Fentanyl Citrate 250 ml @ 2.5 mls/hr Q24H IV 10/10/24 17:15 10/18/24 01:28 22.5 MLS/HR Propofol 100 ml @ 2.496 mls/ hr Q24H IV 10/10/24 17:15 Norepinephrine Bitartrate 250 ml @ 3.75 mls/hr Q24H IV 10/10/24 17:45 10/15/24 04:04 3.75 MLS/HR Diagnostic Test (Pha) 1 strip Q6HR 10/11/24 00:00 10/18/24 13:01 1 STRIP Insulin Human Regular FOLLOW SLIDING SCALE Q6HR SC 10/11/24 00:00 10/18/24 13:13 4 UNITS Dextrose 50 ml UD IV 10/10/24 22:00 Amino Acids 0 ml @ 0 mls/hr PER PHARMACY IV 10/10/24 19:00 UNV Enteral Nutritional Formula 1,000 ml 40ML/HR GT 10/10/24 21:15 10/18/24 05:44 1,000 ML Daptomycin 750 mg/ Sodium Chloride 50 ml @ 100 mls/hr DAILY IV 10/14/24 10:00 10/18/24 11:13 100 MLS/HR Bumetanide 12.5 mg/Miscellaneous 50 ml @ 4 mls/hr [id number] IV 10/15/24 13:00 10/18/24 06:00 4 MLS/HR Ceftaroline Fosamil 400 mg/ Sodium Chloride 250 ml @ 250 mls/hr Q8H IV 10/15/24 18:00 10/18/24 09:29 250 MLS/HR Micafungin Sodium 100 mg/Sodium Chloride 100 ml @ 100 mls/hr DAILY IV 10/16/24 10:00 10/18/24 13:22 100 MLS/HR Lactulose 30 ml Q6HR PO 10/16/24 08:15 10/18/24 13:20 30 ML Polyethylene Glycol 17 gm DAILYPRN PRN PO 10/16/24 08:15 Pantoprazole Sodium 40 mg BID IV 10/16/24 08:30 10/18/24 09:28 40 MG Sodium Bicarbonate 75 ml/ Dextrose 1,075 ml @ 75 mls/hr [id number] IV 10/16/24 11:15 10/18/24 09:08 75 MLS/HR objective General: RASS -3, afebrile, mucosae are moist Cardiovascular: Normal S1 and S2. No murmurs, gallops or rubs Respiratory: Mechanically assisted ventilation, equal bilateral airway entree. Clear lung sounds on auscultation Abdomen: Soft, nontender, no organomegaly, sluggish bowel sounds MSK/skin: Mobilization of limbs cannot be evaluated. Skin is dry and warm. bilateral pedal edema +, ulceration in the bottom of the right great toe. Neurological: Orientation cannot be assessed. No apparent motor no sensitive deficits. Pupils are isocoric and reactive laboratory and microbiology Laboratory Tests 10/18/24 03:04 Test 10/18/24 03:04 Range/Units Serum Glucose 151 H 74-106 mg/dL CT SCAN ABD PELVIS Impression: Foci of air at the left psoas muscle with erosive changes at the left anterior sacroiliac joint. Findings are concerning for acute osteomyelitis/septic arthritis with left psoas muscle abscess. Evaluated on this study is extremely limited due to lack of IV contrast and artifact. Suggest MRI with and without IV contrast for further evaluation. If MRI cannot be performed, contrast enhanced CT is suggested. Small to moderate amount of ascites. Extensive body wall edema. Small to moderate left and small right pleural effusions. Diabetes mellitus. Constipation. Problems(with codes): (1) Septic arthritis (2) ABSCESS LEFT INNER ARM I & D (3) Cellulitis of left lower leg (4) Leukocytosis, unspecified (5) Osteomyelitis of toe of right foot (6) Bacteremia due to methicillin resistant Staphylococcus aureus (7) Methamphetamine abuse (8) Abdominal abscess Prognosis Plan Continue Protonix 40 mg IV q.12 hours Await stool for occult blood Continue conservative management as the patient has multi organ involvement and no active GI bleeding reported Recommend orthopedic consult for left hip septic arthritis and IR consult to evaluate if psoas abscess can be drained Continue broad spectrum abx jail 4-6 weeks Prognosis remains guarded Dietary Evaluation Review Comments: 1) Add cardiac restriction to 60g CCHO diet 2) Initiate Glucerna qd. Encourage optimal PO intake 3) Follow-up with urology and surgery 4) Follow-up with director of social media marketing r/t methamphetamine abuse 5) Continue to monitor I&O, labs, and skin integrity Expected Outcomes/Goals: 1) appetite and labs to improve 2) wound to improve 3) f/u in 3-5 days Plan discussed with: Other (ICU Nurse Francisca) ED BARAHONA MD Oct 18, 2024 14:35
[2024-10-19] VITALS (101 sets, daily range): BP systolic 111–145; BP diastolic 68–92; PULSE 78–98; RESP 12–27; TEMP 98.2–98.4; O2SAT 93–98
[2024-10-19 03:29] LABS: Hematocrit 23.8 % (41.0-53.0); Hemoglobin 8.3 g/dL (13.5-17.5); Mean Corpuscular Hemoglobin 28.3 pg (28.0-32.0); Mean Corpuscular Volume 81.2 fL (80.0-100.0); Nucleated Red Blood Cells % 0.0 %
[2024-10-19 03:38] LABS: Alkaline Phosphatase 78 U/L (46-116); Anion Gap 8 (5-15); BUN/Creatinine Ratio 16.4 (10.0-20.0); Carbon Dioxide 26 mmol/L (20-31); Potassium 3.6 mmol/L (3.5-5.1); Sodium 141 mmol/L (136-145)
[2024-10-19 04:05] LABS: Alanine Aminotransferase < 9 U/L (7-40); Albumin 1.8 g/dL (3.2-4.8); Bilirubin, Total < 0.2 mg/dL (0.2-1.0); Blood Urea Nitrogen 36 mg/dL (9-23); Calcium 7.3 mg/dL (8.7-10.4); Chloride 107 mmol/L (98-107); Glucose 172 mg/dL (74-106); Magnesium 1.4 mg/dL (1.6-2.6); Total Protein 5.6 g/dL (5.7-8.2)
[2024-10-19] MEDS: MAGNESIUM SULFATE 1GM/100ML 100 ML IV SCH (04:55)
[2024-10-19] MEDS: MAGNESIUM SULFATE 1GM/100ML 200 ML IV ONE (04:57)
--- NOTE | 2024-10-19 05:53 | DVH ---
CHEST RADIOGRAPH Indication: mechanical ventilation Technique: Single frontal view of the chest was obtained Comparison: XY CHEST PORTABLE on DOS: 10/18/24, XY CHEST PORTABLE on DOS: 10/17/24, XY CHEST PORTABLE o n DOS: 10/17/24 IMPRESSION: Heart is stable in size. Endotracheal tube, left IJ catheter, and enteric tube tip appears stable in satisfactory position. Bibasilar hazy opacities, [id number] may relate to effusions dev eloping airspace opacity. Similar to prior examination.
[2024-10-19 07:46] LABS: Base Excess -0.4 mmol/L (-2.0-3.0)
--- NOTE | 2024-10-19 08:34 | DVHINCON2 ---
Date of service: Oct 19, 2024 Reason for Consultation Psoas abscess History of Present Illness 39 yo M admitted since 10/02 currently with resp failure and is intubated. Patient admitted for generalized fatigue and fevers. Patient has been on IV abx. Chart reviewed. Past Medical History type 2 diabetes, IV drug use, MRSA UTI, dyslipidemia, CVA, PID, GERD, methamphetamine abuse, right foot osteomyelitis Past Surgical History Right foot debridement Prostate Family History: Family history: Diabetes mellitus GRANDMOTHER (UNK) Allergies: Coded Allergies: No Known Drug Allergy (Unverified Allergy, Unknown, 10/03/24) Home Meds Reported Medications Semaglutide (Ozempic) 8 Mg/3 Ml Inj, 2 MG SC QWEEKLY for 28 Days, #3 10/03/24 Insulin Glargine (Lantus Solostar) 100 Unit/Ml Inj, 20 UNIT SC QPM for 75 Days, #15 10/03/24 Empagliflozin (Jardiance) 25 Mg Tab, 1 TAB PO DAILY for 90 Days, #90 08/24/24 Metformin Hydrochloride (Metformin Hcl) 1,000 Mg Tab, 1 TAB PO BID for 90 Days, #180 08/24/24 Atorvastatin Calcium (Lipitor) 10 Mg Tab, 1 TAB PO QPM for 90 Days, #90 05/10/23 Current Medications Current Medications Medications (Trade) Dose Ordered Sig/Dion Route PRN Reason Start Time Stop Time Status Last Admin Magnesium Sulfate/ Dextrose 100 ml @ 100 mls/hr Q1HR IV 10/19/24 05:00 10/19/24 06:59 DC 10/19/24 06:01 Review of Systems unable to obtain Vital Signs Vital Signs Date Time Temp Pulse Resp B/P (MAP) Pulse Ox O2 Delivery O2 Flow Rate FiO2 10/19/24 08:21 84 24 120/78 (92) 94 30 10/19/24 06:00 Mechanical Ventilator+ 10/19/24 04:00 98.2 98.2 Physical Exam Patient intubate/sedated unable to do motor/sens exam Labs/Diagnostic Data Labs Test 10/19/24 07:27 10/19/24 02:50 10/16/24 15:10 10/15/24 08:34 Range/Units Blood Gas Specimen Type Arterial Blood Gas Sample Site Right radial Blood Gas Patient Temperature 37.0 Arterial Blood Date Drawn [id number] Arterial Blood pH 7.446 7.350-7.450 Arterial Blood Partial Pressure CO2 34.8 L 35.0-48.0 mmHg Arterial Blood Partial Pressure O2 99.1 83.0-108.0 mmHg Arterial Blood HCO3 23.4 21.0-28.0 mmol/L Arterial Blood Oxygen Saturation 97.2 94.0-98.0 % Arterial Blood Base Excess -0.4 -2.0-3.0 mmol/L Arterial Blood Oxyhemoglobin 96.6 94.0-98.0 % Arterial Blood Carboxyhemoglobin 0.3 L 0.5-1.5 % Arterial Blood Methemoglobin 0.3 0.0-1.5 % Simone Test Modified Blood Gas Total Hemoglobin 9.00 L 13.5-17.5 g/dL Blood Gas Set Respiration Rate 24.0 Blood Gas Modality Vent - ac FiO2 % 30.0 Blood Gas Tidal Volume 500.0 Blood Gas PEEP or CPAP 5.0 White Blood Count 5.3 4.4-10.8 10^3/uL Red Blood Count 2.93 L 4.5-5.90 10^6/uL Hemoglobin 8.3 L 13.5-17.5 g/dL Hematocrit 23.8 L 41.0-53.0 % Mean Corpuscular Volume 81.2 80.0-100.0 fL Mean Corpuscular Hemoglobin 28.3 28.0-32.0 pg Mean Corpuscular Hemoglobin Concent 34.9 32.0-36.0 g/dL Red Cell Distribution Width 16.6 H 11.8-14.3 % Platelet Count 132 L 140-450 10^3/uL Mean Platelet Volume 7.0 6.9-10.8 fL Neutrophils (%) (Auto) 66.9 37.0-80.0 % Lymphocytes (%) (Auto) 18.4 10.0-50.0 % Monocytes (%) (Auto) 11.8 0.0-12.0 % Eosinophils (%) (Auto) 2.1 0.0-7.0 % Basophils (%) (Auto) 0.8 0.0-2.0 % Neutrophils # (Auto) 3.5 1.6-8.6 10 ^3/uL Lymphocytes # (Auto) 1.0 0.4-5.4 10 ^3/uL Monocytes # (Auto) 0.6 0-1.3 10 ^3/uL Eosinophils # (Auto) 0.1 0-0.8 10 ^3/uL Basophils # (Auto) 0 0-0.2 10 ^3/uL Nucleated Red Blood Cells 0.0 % Sodium Level 141 136-145 mmol/L Potassium Level 3.6 3.5-5.1 mmol/L Chloride Level 107 98-107 mmol/L Carbon Dioxide Level 26 20-31 mmol/L Anion Gap 8 5-15 Blood Urea Nitrogen 36 H 9-23 mg/dL Creatinine 2.20 H 0.700-1.30 mg/dL Glomerular Filtration Rate Calc 38 >90 mL/min BUN/Creatinine Ratio 16.4 10.0-20.0 Serum Glucose 172 H 74-106 mg/dL Calcium Level 7.3 L 8.7-10.4 mg/dL Magnesium Level 1.4 L 1.6-2.6 mg/dL Total Bilirubin < 0.2 L 0.2-1.0 mg/dL Aspartate Amino Transferase (AST) 15 13-40 U/L Alanine Aminotransferase (ALT) < 9 7-40 U/L Alkaline Phosphatase 78 46-116 U/L Total Protein 5.6 L 5.7-8.2 g/dL Albumin 1.8 L 3.2-4.8 g/dL Iron Level 36 L 65-175 ug/dL Total Iron Binding Capacity 110 L 250-425 ug/dL Percent Iron Saturation 32.7 20-55 % Prothrombin Time 13.1 H 9.3-11.8 sec Prothrombin Time INR 1.26 H 0.9-1.15 Activated Partial Thromboplast Time 36.6 H 24.5-34.5 SEC Test 10/14/24 22:10 10/14/24 10:42 10/14/24 05:04 10/14/24 03:32 Range/Units Urine Color Light-orange Yellow Urine Clarity Ex.turbid Clear Urine pH 5.0 5.0-9.0 Urine Specific [place] 1.017 1.001-1.035 Urine Protein 1+ H Negative Urine Ketones Negative Negative Urine Blood 2+ H Negative /uL Urine Nitrite Negative Negative Urine Bilirubin Negative Negative Urine Urobilinogen Normal Negative mg/dL Urine Leukocyte Esterase 3+ Negative /uL Urine RBC 416 0 - 3 /hpf Urine Microscopic WBC 354 H 0-3 /HPF Urine Squamous Epithelial Cells None seen <5 /hpf Urine Bacteria Mod H None Seen /hpf Urine Hyaline Casts Many 0 - 2 /lpf Urine Mucus Few None Seen Urine Yeast with Hyphae Present /hpf Urine Yeast (Budding) Loaded None Seen /hpf Urine Creatinine 168.66 H 30.0-125.0 mg/dL Urine Protein/Creatinine Ratio 0.94 Urine Glucose Normal Normal mg/dL Urine Total Protein 158.7 H 1-14 mg/dL Chlamydia trachomatis (LESLY) Negative Negative Neisseria gonorrhoeae (LESLY) Negative Negative Urine Sodium 21 L 40-220 mmol/L Hemoglobin A1c 13.2 H <5.7 % A1C Creatine Kinase 34 L 46-171 U/L Test 10/13/24 07:26 10/13/24 03:16 10/12/24 14:00 10/11/24 22:17 Range/Units Blood Gas Critical Value Read Back yes Blood Gas Notified Whom zuleyka danielson md Blood Gas Notified Time [id number] Blood Gas Notified By dino zhang rrt Phosphorus Level 5.5 H 2.4-5.1 mg/dL Complement C3 67 L 82-167 mg/dL Complement C4 20 12-38 mg/dL Vancomycin Level Trough 38.2 *H 5-10 ug/mL Test 10/11/24 21:31 10/10/24 05:07 10/07/24 13:01 10/07/24 09:00 Range/Units B-Type Natriuretic Peptide 102.53 0-100 pg/mL Random Vancomycin Level 15.2 H 5-10 ug/mL HIV (1&2) Antibody Negative Negative Erythrocyte Sedimentation Rate 102 H 0-20 mm/hr C-Reactive Protein High Sensitivity 19.31 H <1.0 mg/dL Triglycerides Level 153 H < 150 mg/dL Cholesterol Level 87 < 200 mg/dL LDL Cholesterol 39 < 100 mg/dL HDL Cholesterol 9 L 40-59 mg/dL Treponema pallidum Antibody Non-reactive Negative Test 10/05/24 18:40 10/05/24 15:02 10/05/24 11:48 10/05/24 02:47 Range/Units Differential Total Cells Counted 100.0 100 Neutrophils % (Manual) 73 37.0-80.0 Band Neutrophils % (Manual) 5 Lymphocytes % (Manual) 13 10.0-50.0 Monocytes % (Manual) 8 0-12 Eosinophils % (Manual) 0 0-7 Basophils % (Manual) 0 0.0-2.0 Metamyelocytes % (manual) 0 Myelocytes % (Manual) 0 Promyelocytes % (Manual) 0 Blast Cells % (Manual) 0 Reactive Lymphocytes 1 Platelet Estimate Decreased Ammonia < 10 L 11-32 umol/L Urine Opiates Screen Neg NEGATIVE Urine Fentanyl Screen Neg NEGATIVE Urine Barbiturates Screen Neg NEGATIVE Urine Phencyclidine Screen Neg NEGATIVE Urine Amphetamines Screen Neg NEGATIVE Urine Benzodiazepines Screen Neg NEGATIVE Urine Cocaine Screen Neg NEGATIVE Urine Cannabinoids Screen Neg NEGATIVE POC Glucose 226 H 70-106 mg/dl Anisocytosis (manual) Slight Thyroid Stimulating Hormone (TSH) 1.36 0.55-4.78 uIU/mL Test 10/03/24 04:25 10/02/24 21:24 Range/Units Hepatitis B Surface Antigen Negative Negative Hepatitis C Antibody Negative Negative Lactic Acid Level 1.3 0.4-2.0 mmol/L Microbiology Date/Time Source Procedure Growth Status 10/16/24 17:40 Catheter Tip Aerobic Culture - Preliminary Resulted 10/16/24 09:39 Penis Aerobic Culture - Preliminary Resulted 10/16/24 02:35 Blood Blood Culture - Preliminary NO GROWTH AFTER 72 HOURS OF INCUBATION. Resulted 10/14/24 22:10 Voided Urine Urine Culture - Final Presumptive Hellen tropicalis Complete 10/10/24 16:45 Sputum Expectorated Sputum Gram Stain - Final Complete 10/10/24 16:45 Sputum Expectorated Sputum Respiratory Culture - Final Complete Plan/Recommendation Sacro-iliac osteo/psoas abscess 1. Rec MRI Lumbar spine vs CT with contrast (renal failure) to better eval abscess/osteo 2. Rec consultation with Dr. Cain for poss I&D eval 3. on IV abx Plan discussed with: KAYY Berman MD Oct 19, 2024 08:34
--- NOTE | 2024-10-19 12:22 | DVHPN2 ---
Progress Note Date Seen: Oct 19, 2024 Medical Necessity Reason Pt with a Central, PICC or Fol: No Subjective Review of Systems: RESPIRATORY:Abnormal Other Systems: Patient seen and examined by myself today in follow-up, patient remained intubated on ventilator Objective vital signs Vital Sign Date Time Temp Pulse Resp B/P (MAP) Pulse Ox O2 Delivery O2 Flow Rate FiO2 10/19/24 10:55 83 24 129/82 (98) 93 30 10/19/24 07:45 98.4 98.4 10/19/24 06:00 Mechanical Ventilator+ Total Intake and Output 10/18/24 10/18/24 10/19/24 15:00 23:00 07:00 Intake Total 1259.75 ml 1110.0 ml 1570.0 ml Output Total 1800 ml Balance 1259.75 ml 1110.0 ml -230.0 ml medications Current Medications Medications Dose Ordered Sig/Dion Route Start Time Stop Time Status Last Admin Dose Admin Acetaminophen 650 mg Q6HP PRN [place] 10/10/24 10:00 10/10/24 15:18 650 MG Midazolam HCl 50 ml @ 1 mls/hr Q24H IV 10/10/24 17:15 10/19/24 06:35 6 MLS/HR Fentanyl Citrate 250 ml @ 2.5 mls/hr Q24H IV 10/10/24 17:15 10/19/24 09:41 22.5 MLS/HR Propofol 100 ml @ 2.496 mls/ hr Q24H IV 10/10/24 17:15 Norepinephrine Bitartrate 250 ml @ 3.75 mls/hr Q24H IV 10/10/24 17:45 10/15/24 04:04 3.75 MLS/HR Diagnostic Test (Pha) 1 strip Q6HR 10/11/24 00:00 10/19/24 05:15 1 STRIP Insulin Human Regular FOLLOW SLIDING SCALE Q6HR SC 10/11/24 00:00 10/19/24 05:18 4 UNITS Dextrose 50 ml UD IV 10/10/24 22:00 Amino Acids 0 ml @ 0 mls/hr PER PHARMACY IV 10/10/24 19:00 UNV Enteral Nutritional Formula 1,000 ml 40ML/HR GT 10/10/24 21:15 10/18/24 05:44 1,000 ML Daptomycin 750 mg/ Sodium Chloride 50 ml @ 100 mls/hr DAILY IV 10/14/24 10:00 10/19/24 09:20 100 MLS/HR Bumetanide 12.5 mg/Miscellaneous 50 ml @ 4 mls/hr [id number] IV 10/15/24 13:00 10/19/24 09:25 4 MLS/HR Ceftaroline Fosamil 400 mg/ Sodium Chloride 250 ml @ 250 mls/hr Q8H IV 10/15/24 18:00 10/19/24 11:46 250 MLS/HR Micafungin Sodium 100 mg/Sodium Chloride 100 ml @ 100 mls/hr DAILY IV 10/16/24 10:00 10/19/24 10:29 100 MLS/HR Lactulose 30 ml Q6HR PO 10/16/24 08:15 10/18/24 18:18 30 ML Polyethylene Glycol 17 gm DAILYPRN PRN PO 10/16/24 08:15 Pantoprazole Sodium 40 mg BID IV 10/16/24 08:30 10/19/24 09:20 40 MG Sodium Bicarbonate 75 ml/ Dextrose 1,075 ml @ 75 mls/hr [id number] IV 10/16/24 11:15 10/18/24 22:29 75 MLS/HR Examination: LUNGS:Normal, CVS:Normal, MSK:Abnormal laboratory and microbiology Laboratory Tests 10/19/24 02:50 Test 10/19/24 02:50 Range/Units Serum Glucose 172 H 74-106 mg/dL Microbiology Date/Time Source Procedure Growth Status 10/16/24 17:40 Catheter Tip Aerobic Culture - Preliminary Resulted 10/16/24 09:39 Penis Aerobic Culture - Final Methicillin Resistant S.aureus Presumptive Hellen tropicalis Complete 10/16/24 02:35 Blood Blood Culture - Preliminary NO GROWTH AFTER 72 HOURS OF INCUBATION. Resulted 10/14/24 22:10 Voided Urine Urine Culture - Final Presumptive Hellen tropicalis Complete 10/10/24 16:45 Sputum Expectorated Sputum Gram Stain - Final Complete 10/10/24 16:45 Sputum Expectorated Sputum Respiratory Culture - Final Complete Problem List/Assessment/Plan Problem List/Assessment/Plan Acute kidney injury multifactorial hemodynamically mediated, FeNa < 1% Acute respiratory failure, patient intubated on ventilator Vancomycin nephrotoxicity Septic shock Acute CVA MRSA bacteremia Bacterial endocarditis Lower extremity MRSA wound infection BPH status post TURP with indwelling Kan catheter d History of methamphetamine abuse Hypoalbuminemia Metabolic acidosis Hypernatremia due to insensible water loss Recommendations Kidney function continues to improve slowly Increase urine output IVF with bicarb Bumex IV 1 milligram/hour Kan catheter Strict I&Os Discontinue vancomycin Albumin 25% IV piggyback IV pressors for blood pressure support We will continue to follow Plan discussed with: Other (Nurse) Dietary Evaluation Review Comments: 1) Add cardiac restriction to 60g CCHO diet 2) Initiate Glucerna qd. Encourage optimal PO intake 3) Follow-up with urology and surgery 4) Follow-up with social work instructor r/t methamphetamine abuse 5) Continue to monitor I&O, labs, and skin integrity Expected Outcomes/Goals: 1) appetite and labs to improve 2) wound to improve 3) f/u in 3-5 days NATHALIA JOSEPH MD Oct 19, 2024 12:22
--- NOTE | 2024-10-19 13:23 | DVHPN2 ---
Progress Note - Dictate Date Seen: Oct 19, 2024 Medical Necessity Reason Pt with a Central, PICC or Fol: No Subjective Patient was seen and examined in the ICU on the bedside. He is on mechanical ventilation with FiO2 30%, peep 5, tidal volume 500 mL, respiratory rate 20. Patient had an TIM on 10/14/24 and found mitral valve vegetation with normal ejection fraction. s/p debridement of right foot ulcer. MRI of the head without contrast demonstrated large area of diffusion restriction of the left posterior temporal lobe and left parietal lobe, small area of punctate infarction along the right posterior frontal lobe to parietal lobe No new complaints Patient is still intubated sedated; no bowel movement yet There was no active GI bleeding, hemoglobin stable at 8.3 S/P 1 unit PRBC Orthopedic consult appreciated vital signs Vital Sign Date Time Temp Pulse Resp B/P (MAP) Pulse Ox O2 Delivery O2 Flow Rate FiO2 10/19/24 12:45 80 24 125/80 (95) 93 30 10/19/24 07:45 98.4 98.4 10/19/24 06:00 Mechanical Ventilator+ Total Intake and Output 10/18/24 10/18/24 10/19/24 15:00 23:00 07:00 Intake Total 1259.75 ml 1110.0 ml 1570.0 ml Output Total 1800 ml Balance 1259.75 ml 1110.0 ml -230.0 ml medications Current Medications Medications Dose Ordered Sig/Dion Route Start Time Stop Time Status Last Admin Dose Admin Acetaminophen 650 mg Q6HP PRN [place] 10/10/24 10:00 10/10/24 15:18 650 MG Midazolam HCl 50 ml @ 1 mls/hr Q24H IV 10/10/24 17:15 10/19/24 06:35 6 MLS/HR Fentanyl Citrate 250 ml @ 2.5 mls/hr Q24H IV 10/10/24 17:15 10/19/24 09:41 22.5 MLS/HR Propofol 100 ml @ 2.496 mls/ hr Q24H IV 10/10/24 17:15 Norepinephrine Bitartrate 250 ml @ 3.75 mls/hr Q24H IV 10/10/24 17:45 10/15/24 04:04 3.75 MLS/HR Diagnostic Test (Pha) 1 strip Q6HR 10/11/24 00:00 10/19/24 12:40 1 STRIP Insulin Human Regular FOLLOW SLIDING SCALE Q6HR SC 10/11/24 00:00 10/19/24 12:47 4 UNITS Dextrose 50 ml UD IV 10/10/24 22:00 Amino Acids 0 ml @ 0 mls/hr PER PHARMACY IV 10/10/24 19:00 UNV Enteral Nutritional Formula 1,000 ml 40ML/HR GT 10/10/24 21:15 10/18/24 05:44 1,000 ML Daptomycin 750 mg/ Sodium Chloride 50 ml @ 100 mls/hr DAILY IV 10/14/24 10:00 10/19/24 09:20 100 MLS/HR Bumetanide 12.5 mg/Miscellaneous 50 ml @ 4 mls/hr [id number] IV 10/15/24 13:00 10/19/24 09:25 4 MLS/HR Ceftaroline Fosamil 400 mg/ Sodium Chloride 250 ml @ 250 mls/hr Q8H IV 10/15/24 18:00 10/20/24 00:00 10/19/24 11:46 250 MLS/HR Micafungin Sodium 100 mg/Sodium Chloride 100 ml @ 100 mls/hr DAILY IV 10/16/24 10:00 10/19/24 10:29 100 MLS/HR Lactulose 30 ml Q6HR PO 10/16/24 08:15 10/19/24 12:40 30 ML Polyethylene Glycol 17 gm DAILYPRN PRN PO 10/16/24 08:15 Pantoprazole Sodium 40 mg BID IV 10/16/24 08:30 10/19/24 09:20 40 MG Sodium Bicarbonate 75 ml/ Dextrose 1,075 ml @ 75 mls/hr [id number] IV 10/16/24 11:15 10/18/24 22:29 75 MLS/HR Ceftaroline Fosamil 600 mg/ Sodium Chloride 250 ml @ 250 mls/hr Q8H IV 10/20/24 02:00 objective General: RASS -3, afebrile, mucosae are moist Cardiovascular: Normal S1 and S2. No murmurs, gallops or rubs Respiratory: Mechanically assisted ventilation, equal bilateral airway entree. Clear lung sounds on auscultation Abdomen: Soft, nontender, no organomegaly, sluggish bowel sounds MSK/skin: Mobilization of limbs cannot be evaluated. Skin is dry and warm. bilateral pedal edema +, ulceration in the bottom of the right great toe. Neurological: Orientation cannot be assessed. No apparent motor no sensitive deficits. 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 Rec MRI Lumbar spine vs CT with contrast (renal failure) to better eval abscess/osteo 2. Rec consultation with Dr. Cain for poss I&D eval 3. on IV abx Dietary Evaluation Review Comments: 1) Add cardiac restriction to 60g CCHO diet 2) Initiate Glucerna qd. Encourage optimal PO intake 3) Follow-up with urology and surgery 4) Follow-up with psychotherapist social worker r/t methamphetamine abuse 5) Continue to monitor I&O, labs, and skin integrity Expected Outcomes/Goals: 1) appetite and labs to improve 2) wound to improve 3) f/u in 3-5 days Plan discussed with: Other (None) ED BARAHONA MD Oct 19, 2024 13:23
--- NOTE | 2024-10-19 13:53 | DVHPN2 ---
Progress Note - Dictate Date Seen: Oct 19, 2024 Medical Necessity Reason Pt with a Central, PICC or Fol: No vital signs Vital Sign Date Time Temp Pulse Resp B/P (MAP) Pulse Ox O2 Delivery O2 Flow Rate FiO2 10/19/24 12:45 80 24 125/80 (95) 93 30 10/19/24 07:45 98.4 98.4 10/19/24 06:00 Mechanical Ventilator+ Total Intake and Output 10/18/24 10/18/24 10/19/24 15:00 23:00 07:00 Intake Total 1259.75 ml 1110.0 ml 1570.0 ml Output Total 1800 ml Balance 1259.75 ml 1110.0 ml -230.0 ml medications Current Medications Medications Dose Ordered Sig/Dion Route Start Time Stop Time Status Last Admin Dose Admin Acetaminophen 650 mg Q6HP PRN [place] 10/10/24 10:00 10/10/24 15:18 650 MG Midazolam HCl 50 ml @ 1 mls/hr Q24H IV 10/10/24 17:15 10/19/24 13:42 6 MLS/HR Fentanyl Citrate 250 ml @ 2.5 mls/hr Q24H IV 10/10/24 17:15 10/19/24 09:41 22.5 MLS/HR Propofol 100 ml @ 2.496 mls/ hr Q24H IV 10/10/24 17:15 Norepinephrine Bitartrate 250 ml @ 3.75 mls/hr Q24H IV 10/10/24 17:45 10/15/24 04:04 3.75 MLS/HR Diagnostic Test (Pha) 1 strip Q6HR 10/11/24 00:00 10/19/24 12:40 1 STRIP Insulin Human Regular FOLLOW SLIDING SCALE Q6HR SC 10/11/24 00:00 10/19/24 12:47 4 UNITS Dextrose 50 ml UD IV 10/10/24 22:00 Amino Acids 0 ml @ 0 mls/hr PER PHARMACY IV 10/10/24 19:00 UNV Enteral Nutritional Formula 1,000 ml 40ML/HR GT 10/10/24 21:15 10/18/24 05:44 1,000 ML Daptomycin 750 mg/ Sodium Chloride 50 ml @ 100 mls/hr DAILY IV 10/14/24 10:00 10/19/24 09:20 100 MLS/HR Bumetanide 12.5 mg/Miscellaneous 50 ml @ 4 mls/hr [id number] IV 10/15/24 13:00 10/19/24 09:25 4 MLS/HR Ceftaroline Fosamil 400 mg/ Sodium Chloride 250 ml @ 250 mls/hr Q8H IV 10/15/24 18:00 10/20/24 00:00 10/19/24 11:46 250 MLS/HR Micafungin Sodium 100 mg/Sodium Chloride 100 ml @ 100 mls/hr DAILY IV 10/16/24 10:00 10/19/24 10:29 100 MLS/HR Lactulose 30 ml Q6HR PO 10/16/24 08:15 10/19/24 12:40 30 ML Polyethylene Glycol 17 gm DAILYPRN PRN PO 10/16/24 08:15 Pantoprazole Sodium 40 mg BID IV 10/16/24 08:30 10/19/24 09:20 40 MG Sodium Bicarbonate 75 ml/ Dextrose 1,075 ml @ 75 mls/hr [id number] IV 10/16/24 11:15 10/19/24 13:42 75 MLS/HR Ceftaroline Fosamil 600 mg/ Sodium Chloride 250 ml @ 250 mls/hr Q8H IV 10/20/24 02:00 laboratory and microbiology Laboratory Tests 10/19/24 02:50 Test 10/19/24 02:50 Range/Units Serum Glucose 172 H 74-106 mg/dL Assessment/Plan Covering for Dr. Sanders [employer] rounds Impression Acute hypoxemic respiratory failure Persistent MRSA bacteremia Altered mental status Septic shock Patient seen and examined in ICU Events On mechanical ventilation S/p intubation PEEP 5, FiO2 35% substance abuse MRSA bacteremia TIM .8 vegetation multiple sites of seeding pelvic abscess covered with abx per ID sx to follow for drainage continue Vent support Titrate to maintain sats 90% or above Sedation for vent synchrony Continue antibiotics F/u cultures and ID Bronchodilators Monitor renal function Monitor electrolytes Supplement as needed Pressors as needed for hemodynamic support To maintain a mean arterial pressure of 65 mmHg Prognosis questionable DVT prophylaxis Critical care time 35 minutes Dietary Evaluation Review Comments: 1) Add cardiac restriction to 60g CCHO diet 2) Initiate Glucerna qd. Encourage optimal PO intake 3) Follow-up with urology and surgery 4) Follow-up with director social welfare r/t methamphetamine abuse 5) Continue to monitor I&O, labs, and skin integrity Expected Outcomes/Goals: 1) appetite and labs to improve 2) wound to improve 3) f/u in 3-5 days Plan discussed with: Other (Rn) HEIDI DOMINGUEZ MD Oct 19, 2024 13:53
[2024-10-19] MEDS: CEFTAROLINE 600 MG in SODIUM CHL 0.9% 250 ML IV SCH (18:39)
--- NOTE | 2024-10-19 21:56 | DVHPN2 ---
Consult Progress Note Objective vital signs Vital Sign Date Time Temp Pulse Resp B/P (MAP) Pulse Ox O2 Delivery O2 Flow Rate FiO2 10/19/24 21:00 87 24 120/73 (89) 96 10/19/24 20:05 30 10/19/24 20:00 Mechanical Ventilator+ 10/19/24 20:00 98.4 98.4 Total Intake and Output 10/18/24 10/18/24 10/19/24 15:00 23:00 07:00 Intake Total 1259.75 ml 1520.0 ml 1570.0 ml Output Total 1750 ml 1800 ml Balance 1259.75 ml -230.0 ml -230.0 ml medications Current Medications Medications Dose Ordered Sig/Dion Route Start Time Stop Time Status Last Admin Dose Admin Acetaminophen 650 mg Q6HP PRN [place] 10/10/24 10:00 10/10/24 15:18 650 MG Midazolam HCl 50 ml @ 1 mls/hr Q24H IV 10/10/24 17:15 10/19/24 20:09 6 MLS/HR Fentanyl Citrate 250 ml @ 2.5 mls/hr Q24H IV 10/10/24 17:15 10/19/24 20:10 22.5 MLS/HR Propofol 100 ml @ 2.496 mls/ hr Q24H IV 10/10/24 17:15 Norepinephrine Bitartrate 250 ml @ 3.75 mls/hr Q24H IV 10/10/24 17:45 10/15/24 04:04 3.75 MLS/HR Diagnostic Test (Pha) 1 strip Q6HR 10/11/24 00:00 10/19/24 17:47 1 STRIP Insulin Human Regular FOLLOW SLIDING SCALE Q6HR SC 10/11/24 00:00 10/19/24 17:53 8 UNITS Dextrose 50 ml UD IV 10/10/24 22:00 Amino Acids 0 ml @ 0 mls/hr PER PHARMACY IV 10/10/24 19:00 UNV Enteral Nutritional Formula 1,000 ml 40ML/HR GT 10/10/24 21:15 10/18/24 05:44 1,000 ML Daptomycin 750 mg/ Sodium Chloride 50 ml @ 100 mls/hr DAILY IV 10/14/24 10:00 10/19/24 09:20 100 MLS/HR Bumetanide 12.5 mg/Miscellaneous 50 ml @ 4 mls/hr [id number] IV 10/15/24 13:00 10/19/24 15:45 4 MLS/HR Micafungin Sodium 100 mg/Sodium Chloride 100 ml @ 100 mls/hr DAILY IV 10/16/24 10:00 10/19/24 10:29 100 MLS/HR Lactulose 30 ml Q6HR PO 10/16/24 08:15 10/19/24 18:11 30 ML Polyethylene Glycol 17 gm DAILYPRN PRN PO 10/16/24 08:15 Pantoprazole Sodium 40 mg BID IV 10/16/24 08:30 10/19/24 09:20 40 MG Sodium Bicarbonate 75 ml/ Dextrose 1,075 ml @ 75 mls/hr [id number] IV 10/16/24 11:15 10/19/24 20:09 75 MLS/HR Ceftaroline Fosamil 600 mg/ Sodium Chloride 250 ml @ 250 mls/hr Q8H IV 10/19/24 18:00 10/19/24 18:39 250 MLS/HR laboratory and microbiology Laboratory Tests 10/19/24 02:50 Test 10/19/24 02:50 Range/Units Serum Glucose 172 H 74-106 mg/dL Dietary Evaluation Review Comments: 1) Add cardiac restriction to 60g CCHO diet 2) Initiate Glucerna qd. Encourage optimal PO intake 3) Follow-up with urology and surgery 4) Follow-up with social worker health services r/t methamphetamine abuse 5) Continue to monitor I&O, labs, and skin integrity Expected Outcomes/Goals: 1) appetite and labs to improve 2) wound to improve 3) f/u in 3-5 days ERIN BERRY MD Oct 19, 2024 21:56
--- NOTE | 2024-10-19 21:56 | DVHPN2 ---
Consult Progress Note Objective vital signs Vital Sign Date Time Temp Pulse Resp B/P (MAP) Pulse Ox O2 Delivery O2 Flow Rate FiO2 10/19/24 21:00 87 24 120/73 (89) 96 10/19/24 20:05 30 10/19/24 20:00 Mechanical Ventilator+ 10/19/24 20:00 98.4 98.4 Total Intake and Output 10/18/24 10/18/24 10/19/24 15:00 23:00 07:00 Intake Total 1259.75 ml 1520.0 ml 1570.0 ml Output Total 1750 ml 1800 ml Balance 1259.75 ml -230.0 ml -230.0 ml medications Current Medications Medications Dose Ordered Sig/Dion Route Start Time Stop Time Status Last Admin Dose Admin Acetaminophen 650 mg Q6HP PRN [place] 10/10/24 10:00 10/10/24 15:18 650 MG Midazolam HCl 50 ml @ 1 mls/hr Q24H IV 10/10/24 17:15 10/19/24 20:09 6 MLS/HR Fentanyl Citrate 250 ml @ 2.5 mls/hr Q24H IV 10/10/24 17:15 10/19/24 20:10 22.5 MLS/HR Propofol 100 ml @ 2.496 mls/ hr Q24H IV 10/10/24 17:15 Norepinephrine Bitartrate 250 ml @ 3.75 mls/hr Q24H IV 10/10/24 17:45 10/15/24 04:04 3.75 MLS/HR Diagnostic Test (Pha) 1 strip Q6HR 10/11/24 00:00 10/19/24 17:47 1 STRIP Insulin Human Regular FOLLOW SLIDING SCALE Q6HR SC 10/11/24 00:00 10/19/24 17:53 8 UNITS Dextrose 50 ml UD IV 10/10/24 22:00 Amino Acids 0 ml @ 0 mls/hr PER PHARMACY IV 10/10/24 19:00 UNV Enteral Nutritional Formula 1,000 ml 40ML/HR GT 10/10/24 21:15 10/18/24 05:44 1,000 ML Daptomycin 750 mg/ Sodium Chloride 50 ml @ 100 mls/hr DAILY IV 10/14/24 10:00 10/19/24 09:20 100 MLS/HR Bumetanide 12.5 mg/Miscellaneous 50 ml @ 4 mls/hr [id number] IV 10/15/24 13:00 10/19/24 15:45 4 MLS/HR Micafungin Sodium 100 mg/Sodium Chloride 100 ml @ 100 mls/hr DAILY IV 10/16/24 10:00 10/19/24 10:29 100 MLS/HR Lactulose 30 ml Q6HR PO 10/16/24 08:15 10/19/24 18:11 30 ML Polyethylene Glycol 17 gm DAILYPRN PRN PO 10/16/24 08:15 Pantoprazole Sodium 40 mg BID IV 10/16/24 08:30 10/19/24 09:20 40 MG Sodium Bicarbonate 75 ml/ Dextrose 1,075 ml @ 75 mls/hr [id number] IV 10/16/24 11:15 10/19/24 20:09 75 MLS/HR Ceftaroline Fosamil 600 mg/ Sodium Chloride 250 ml @ 250 mls/hr Q8H IV 10/19/24 18:00 10/19/24 18:39 250 MLS/HR laboratory and microbiology Laboratory Tests 10/19/24 02:50 Test 10/19/24 02:50 Range/Units Serum Glucose 172 H 74-106 mg/dL Dietary Evaluation Review Comments: 1) Add cardiac restriction to 60g CCHO diet 2) Initiate Glucerna qd. Encourage optimal PO intake 3) Follow-up with urology and surgery 4) Follow-up with social worker clinical r/t methamphetamine abuse 5) Continue to monitor I&O, labs, and skin integrity Expected Outcomes/Goals: 1) appetite and labs to improve 2) wound to improve 3) f/u in 3-5 days ERIN BERRY MD Oct 19, 2024 21:56
--- NOTE | 2024-10-19 21:56 | DVHPN2 ---
Consult Progress Note Objective vital signs Vital Sign Date Time Temp Pulse Resp B/P (MAP) Pulse Ox O2 Delivery O2 Flow Rate FiO2 10/19/24 21:00 87 24 120/73 (89) 96 10/19/24 20:05 30 10/19/24 20:00 Mechanical Ventilator+ 10/19/24 20:00 98.4 98.4 Total Intake and Output 10/18/24 10/18/24 10/19/24 15:00 23:00 07:00 Intake Total 1259.75 ml 1520.0 ml 1570.0 ml Output Total 1750 ml 1800 ml Balance 1259.75 ml -230.0 ml -230.0 ml medications Current Medications Medications Dose Ordered Sig/Dion Route Start Time Stop Time Status Last Admin Dose Admin Acetaminophen 650 mg Q6HP PRN [place] 10/10/24 10:00 10/10/24 15:18 650 MG Midazolam HCl 50 ml @ 1 mls/hr Q24H IV 10/10/24 17:15 10/19/24 20:09 6 MLS/HR Fentanyl Citrate 250 ml @ 2.5 mls/hr Q24H IV 10/10/24 17:15 10/19/24 20:10 22.5 MLS/HR Propofol 100 ml @ 2.496 mls/ hr Q24H IV 10/10/24 17:15 Norepinephrine Bitartrate 250 ml @ 3.75 mls/hr Q24H IV 10/10/24 17:45 10/15/24 04:04 3.75 MLS/HR Diagnostic Test (Pha) 1 strip Q6HR 10/11/24 00:00 10/19/24 17:47 1 STRIP Insulin Human Regular FOLLOW SLIDING SCALE Q6HR SC 10/11/24 00:00 10/19/24 17:53 8 UNITS Dextrose 50 ml UD IV 10/10/24 22:00 Amino Acids 0 ml @ 0 mls/hr PER PHARMACY IV 10/10/24 19:00 UNV Enteral Nutritional Formula 1,000 ml 40ML/HR GT 10/10/24 21:15 10/18/24 05:44 1,000 ML Daptomycin 750 mg/ Sodium Chloride 50 ml @ 100 mls/hr DAILY IV 10/14/24 10:00 10/19/24 09:20 100 MLS/HR Bumetanide 12.5 mg/Miscellaneous 50 ml @ 4 mls/hr [id number] IV 10/15/24 13:00 10/19/24 15:45 4 MLS/HR Micafungin Sodium 100 mg/Sodium Chloride 100 ml @ 100 mls/hr DAILY IV 10/16/24 10:00 10/19/24 10:29 100 MLS/HR Lactulose 30 ml Q6HR PO 10/16/24 08:15 10/19/24 18:11 30 ML Polyethylene Glycol 17 gm DAILYPRN PRN PO 10/16/24 08:15 Pantoprazole Sodium 40 mg BID IV 10/16/24 08:30 10/19/24 09:20 40 MG Sodium Bicarbonate 75 ml/ Dextrose 1,075 ml @ 75 mls/hr [id number] IV 10/16/24 11:15 10/19/24 20:09 75 MLS/HR Ceftaroline Fosamil 600 mg/ Sodium Chloride 250 ml @ 250 mls/hr Q8H IV 10/19/24 18:00 10/19/24 18:39 250 MLS/HR laboratory and microbiology Laboratory Tests 10/19/24 02:50 Test 10/19/24 02:50 Range/Units Serum Glucose 172 H 74-106 mg/dL Dietary Evaluation Review Comments: 1) Add cardiac restriction to 60g CCHO diet 2) Initiate Glucerna qd. Encourage optimal PO intake 3) Follow-up with urology and surgery 4) Follow-up with group social worker r/t methamphetamine abuse 5) Continue to monitor I&O, labs, and skin integrity Expected Outcomes/Goals: 1) appetite and labs to improve 2) wound to improve 3) f/u in 3-5 days ERIN BERRY MD Oct 19, 2024 21:56
--- NOTE | 2024-10-19 22:03 | DVHPN2 ---
Progress Note - Dictate Date Seen: Oct 19, 2024 Medical Necessity Reason Pt with a Central, PICC or Fol: No Subjective Mr. Velazquez is a 39 years old gentleman with a history of diabetes, GERD, bipolar disorder, schizophrenia, chronic diabetic ulcer, he was brought to the [facility] on 10/02/2024 with a chief company of fever, the patient is also noticed to have altered mental status, in the CT brain scan showed evidence suggestive of left MCA territory acute stroke. Because of fever, worsening mental status, that is was intubated and transferred to ICU on 10/10/24 I have seen and examined the patient, talked to his nurse, he is intubated, sedated, responsive to light painful stimuli, pupils are small but reactive Versed 6 mg/hour, fentanyl 225 mcg/hour Blood culture, 10/02/2024: MRSA Blood culture, 10/03/2024: MRSA Blood culture, 10/04/2024: MRSA UDS, 10/03/2024: Ms. Amphetamine, 09/3124: Negative Urinalysis, 10/02/2024: WBC: 30, urine leukocyte esterase: Trace WBC/HB/PLT/MCV, 10/06/2024: 5/8.7/130/82.4, 10/10/2024: 6.5/8.1/211/84.5, , 10/11/2024: 6.1/7.5/176/85.9 PTT/INR/eight six, 10/02/2024: 12.3/1.18/34.4 Na, 10/07/2024: 144 10/10/2024: 151, 10/11/2024: 148 CMP, 10/05/2024: Unremarkable BUN/CR, 10/10/2024: 22/0.96, 10/11/2024: 32/1.94 GFR, 10/10/2024: 102, 10/11/2024: 44 Liver function tests, 10/11/2024: Unremarkable HGB A1c, 05/10/2023: >14 TG/HDL/LDL/HDL, 10/07/2024: 153/87/39/9 TIM, 10/14/2024: Left Ventricle: Normal LV size and function, LVEF estimated at 60% Right Ventricle: NOrmal RV size and function Left atrium: normal Right atrium: normal RA Left atrial appendage: no thrombus noted, d Aortic valve: trileaflet valve, no severe or AI Mitral Valve: structurally normal, anterior leaflet has 0. 8 cm vegetation with stalk . 0.8 x 0.4 cm, no significant MR is noted however, no abscess noted Tricuspid Valve: mild tricuspid regurgitaiton, no TS Pulmonic Valve: structurally normal, no severe PIor PS Interatrial septum: negative color flow for R to L shunt, negative bubble study Ascending aorta: no severe plaquing Echocardiogram, 10/06/2024: Technically good study. Off axis views. Limited views obtained. There appears to be biatrial enlargement and LV enlargement. Mild aortic root enlargement. Valves appear to be structurally normal. Left ventricular function is borderline at 45 to 50% anteroseptal hypokinesis.. Normal RV function. Mild TR. No pericardial effusion masses or vegetations. CT head, 10/05/2024: Acute left MCA territory infarct in left insula/temporal operculum/temporal lobe. No hemorrhage or mass effect Sedated, 10/09/2024: 1. Interval progression in evolution of left middle cerebral artery territory infarct involving the insula / temporal are operculum/ temporal lobe with associated loss of khoury-white matter differentiation and progressively diminished parenchymal attenuation. 2. No evidence of intracranial hemorrhage, mass effect, midline shift or herniation. 3. Chronic sequelae of microangiopathy and atrophic cortical volume loss. CT abdomen/pelvis, 10/06/2024: 1. Trace bilateral pleural effusions with adjacent atelectasis and patchy posterior bibasilar pulmonary infiltrate. 2. Hepatomegaly. 3. Excess retained colorectal stool and moderate proximal mechanical small-bowel obstruction. 4. Moderate gas and Kan catheter within the urinary bladder CT abdomen/pelvis, 10/16/2024: Foci of air at the left psoas muscle with erosive changes at the left anterior sacroiliac joint. Findings are concerning for acute osteomyelitis/septic arthritis with left psoas muscle abscess. Evaluated on this study is extremely limited due to lack of IV contrast and artifact. Suggest MRI with and without IV contrast for further evaluation. If MRI cannot be performed, contrast enhanced CT is suggested. Small to moderate amount of ascites. Extensive body wall edema. Small to moderate left and small right pleural effusions. Diabetes mellitus. Constipation. CTA head, neck, 10/05/2024: 1. No evidence of acute intracranial hemorrhage, mass effect or hydrocephalus. 2. No evidence of hemodynamically significant intracranial stenosis, proximal occlusion or aneurysm. 3. No evidence of hemodynamically significant cervical stenosis or dissection MRI head, 10/15/2024: 1. Large area of diffusion restriction of the left posterior temporal lobe and left parietal lobe. 2. Small areas of punctate infarction along the right posterior frontal lobe to parietal lobe. 3. Imaging pattern may be compatible with embolic phenomenon vital signs Vital Sign Date Time Temp Pulse Resp B/P (MAP) Pulse Ox O2 Delivery O2 Flow Rate FiO2 10/19/24 21:00 87 24 120/73 (89) 96 10/19/24 20:05 30 10/19/24 20:00 Mechanical Ventilator+ 10/19/24 20:00 98.4 98.4 Total Intake and Output 10/18/24 10/18/24 10/19/24 15:00 23:00 07:00 Intake Total 1259.75 ml 1520.0 ml 1570.0 ml Output Total 1750 ml 1800 ml Balance 1259.75 ml -230.0 ml -230.0 ml medications Current Medications Medications Dose Ordered Sig/Dion Route Start Time Stop Time Status Last Admin Dose Admin Acetaminophen 650 mg Q6HP PRN [place] 10/10/24 10:00 10/10/24 15:18 650 MG Midazolam HCl 50 ml @ 1 mls/hr Q24H IV 10/10/24 17:15 10/19/24 20:09 6 MLS/HR Fentanyl Citrate 250 ml @ 2.5 mls/hr Q24H IV 10/10/24 17:15 10/19/24 20:10 22.5 MLS/HR Propofol 100 ml @ 2.496 mls/ hr Q24H IV 10/10/24 17:15 Norepinephrine Bitartrate 250 ml @ 3.75 mls/hr Q24H IV 10/10/24 17:45 10/15/24 04:04 3.75 MLS/HR Diagnostic Test (Pha) 1 strip Q6HR 10/11/24 00:00 10/19/24 17:47 1 STRIP Insulin Human Regular FOLLOW SLIDING SCALE Q6HR SC 10/11/24 00:00 10/19/24 17:53 8 UNITS Dextrose 50 ml UD IV 10/10/24 22:00 Amino Acids 0 ml @ 0 mls/hr PER PHARMACY IV 10/10/24 19:00 UNV Enteral Nutritional Formula 1,000 ml 40ML/HR GT 10/10/24 21:15 10/18/24 05:44 1,000 ML Daptomycin 750 mg/ Sodium Chloride 50 ml @ 100 mls/hr DAILY IV 10/14/24 10:00 10/19/24 09:20 100 MLS/HR Bumetanide 12.5 mg/Miscellaneous 50 ml @ 4 mls/hr [id number] IV 10/15/24 13:00 10/19/24 15:45 4 MLS/HR Micafungin Sodium 100 mg/Sodium Chloride 100 ml @ 100 mls/hr DAILY IV 10/16/24 10:00 10/19/24 10:29 100 MLS/HR Lactulose 30 ml Q6HR PO 10/16/24 08:15 10/19/24 18:11 30 ML Polyethylene Glycol 17 gm DAILYPRN PRN PO 10/16/24 08:15 Pantoprazole Sodium 40 mg BID IV 10/16/24 08:30 10/19/24 09:20 40 MG Sodium Bicarbonate 75 ml/ Dextrose 1,075 ml @ 75 mls/hr [id number] IV 10/16/24 11:15 10/19/24 20:09 75 MLS/HR Ceftaroline Fosamil 600 mg/ Sodium Chloride 250 ml @ 250 mls/hr Q8H IV 10/19/24 18:00 10/19/24 18:39 250 MLS/HR objective General: the patient is well developed and nourished. No acute distress. Intubated MUSCULOSKELETAL EXAM: Chronic ulcer in the right big toe, a small skin lesion in the left big toe MENTAL STATUS: Subjective SPEECH, LANGUAGE, HIGHER CORTICAL FUNCTION: Subjective CRANIAL NERVES: Pupils are equal, round and reactive. There is doll's eye, corneal reflexes. No sign of facial weakness. He has gag reflexes SENSATION: Responsive to stroke painful stimuli MOTOR: Muscle tone feels normal, no spontaneous extremity movement REFLEXES: Deep tendon reflexes feel symmetrical. No pathological reflexes. CEREBELLAR/COORDINATION: Deferred GAIT/STATION: deferred laboratory and microbiology Laboratory Tests 10/19/24 02:50 Test 10/19/24 02:50 Range/Units Serum Glucose 172 H 74-106 mg/dL Problem List Altered mental status, secondary to Acute stroke Metabolic encephalopathy Rule out intracranial infection Acute respiratory failure Abnormal CT head Acute stroke Rule out encephalitis Prostatic abscess vs hematoma Rule out endocarditis Sepsis with MRSA Chronic diabetic wound Endocarditis Osteomyelitis Psoas abscess History of substance abuse Assessment/Plan Monitoring Supportive treatment ICU care Follow up blood tests MRI lumbar spine Stabilize vitals Respiratory support/vent management Aspirin 81 mg daily (on hold) D/C Lipitor 20 mg daily (LDL: 39) IV antibiotics Haldol p.r.n. for agitation DVT prophylaxis/Lovenox (on hold) Infectious disease on case Need to quit substance abuse Orthopedic on case More recommendation per clinical course This medical document was created using an electronic medical record system with [employer] dictation system. Although this document has been carefully reviewed, there may still be some phonetic and typographical errors. These areas are purely typographical due to imperfections of the software programs, and do not reflect any compromise in the patient's medical care. Prognosis guarded Dietary Evaluation Review Comments: 1) Add cardiac restriction to 60g CCHO diet 2) Initiate Glucerna qd. Encourage optimal PO intake 3) Follow-up with urology and surgery 4) Follow-up with social service worker r/t methamphetamine abuse 5) Continue to monitor I&O, labs, and skin integrity Expected Outcomes/Goals: 1) appetite and labs to improve 2) wound to improve 3) f/u in 3-5 days Plan discussed with: Other CALEB PAYNE MD Oct 19, 2024 22:03
--- NOTE | 2024-10-19 22:15 | DVHPN2 ---
Subjective The patient is seen and examined at bedside. Remained intubated.. No change overnight. Reviewed: Care Plan Changes from previous H/P or p: No Changes General: Per HPI Eyes: No Pain, No Vision change, No Conjunctivae inflammation, No Eyelid inflammation, No Other, No Redness ENT: No Ear pain, No Ear discharge, No Nose pain, No Nose discharge, No Nose congestion, No Mouth pain, No Mouth swelling, No Throat pain, No Throat swelling, No Other Cardiovascular: No Chest Pain, No Palpitations, No Orthopnea, No Paroxysmal Noc. Dyspnea, No Edema, No Lt Headedness, No Other Respiratory: No Cough, No Dry, No Shortness of breath, No SOB with excertion, No Wheezing, No Hemoptysis, No Pleuritic Pain, No Sputum, No Other Gastrointestinal: No Nausea, No Vomiting; Abdominal Pain; No Diarrhea, No Constipation, No Melena, No Hematochezia, No Other Genitourinary: No Dysuria, No Frequency, No Incontinence, No Hematuria, No Retention; Other (Kan catheter in place) Musculoskeletal: No other, No neck pain, No shoulder pain, No arm pain, No back pain, No hand pain, No leg pain, No foot pain Skin: No Rash, No Lesions, No Jaundice, No Bruising, No Other Objective Vitals Vital Signs Date Time Temp Pulse Resp B/P (MAP) Pulse Ox O2 Delivery O2 Flow Rate FiO2 10/19/24 21:00 87 24 120/73 (89) 96 10/19/24 20:05 30 10/19/24 20:00 Mechanical Ventilator+ 10/19/24 20:00 98.4 98.4 Intake/Output Intake and Output 10/19/24 07:00 Intake Total 4349.75 ml Output Total 3550 ml Balance 799.75 ml Intake Oral 50 ml IV Total 3579.75 ml Tube Feeding 720 ml Output Urine Total 3550 ml General Appearance: Other (Intubated, on vent,) HEENT: Atraumatic, PERRLA, EOMI, Mucous membr. moist/pink Neck: Supple Lungs: Clear to auscultation, Normal air movement Cardiovascular: Regular rate, Normal S1, Normal S2, No murmurs, Gallops, Rubs Abdomen: Normal bowel sounds, Soft, No tenderness Neuro: Cranial nerves 3-12 NL Psych/Mental Status: Mental status NL Medications Current Medications Medications Dose Ordered Sig/Dion Route Start Time Stop Time Status Last Admin Dose Admin Acetaminophen 650 mg Q6HP PRN [place] 10/10/24 10:00 10/10/24 15:18 650 MG Midazolam HCl 50 ml @ 1 mls/hr Q24H IV 10/10/24 17:15 10/19/24 20:09 6 MLS/HR Fentanyl Citrate 250 ml @ 2.5 mls/hr Q24H IV 10/10/24 17:15 10/19/24 20:10 22.5 MLS/HR Propofol 100 ml @ 2.496 mls/ hr Q24H IV 10/10/24 17:15 Norepinephrine Bitartrate 250 ml @ 3.75 mls/hr Q24H IV 10/10/24 17:45 10/15/24 04:04 3.75 MLS/HR Diagnostic Test (Pha) 1 strip Q6HR 10/11/24 00:00 10/19/24 17:47 1 STRIP Insulin Human Regular FOLLOW SLIDING SCALE Q6HR SC 10/11/24 00:00 10/19/24 17:53 8 UNITS Dextrose 50 ml UD IV 10/10/24 22:00 Amino Acids 0 ml @ 0 mls/hr PER PHARMACY IV 10/10/24 19:00 UNV Enteral Nutritional Formula 1,000 ml 40ML/HR GT 10/10/24 21:15 10/18/24 05:44 1,000 ML Daptomycin 750 mg/ Sodium Chloride 50 ml @ 100 mls/hr DAILY IV 10/14/24 10:00 10/19/24 09:20 100 MLS/HR Bumetanide 12.5 mg/Miscellaneous 50 ml @ 4 mls/hr [id number] IV 10/15/24 13:00 10/19/24 15:45 4 MLS/HR Micafungin Sodium 100 mg/Sodium Chloride 100 ml @ 100 mls/hr DAILY IV 10/16/24 10:00 10/19/24 10:29 100 MLS/HR Lactulose 30 ml Q6HR PO 10/16/24 08:15 10/19/24 18:11 30 ML Polyethylene Glycol 17 gm DAILYPRN PRN PO 10/16/24 08:15 Pantoprazole Sodium 40 mg BID IV 10/16/24 08:30 10/19/24 09:20 40 MG Sodium Bicarbonate 75 ml/ Dextrose 1,075 ml @ 75 mls/hr [id number] IV 10/16/24 11:15 10/19/24 20:09 75 MLS/HR Ceftaroline Fosamil 600 mg/ Sodium Chloride 250 ml @ 250 mls/hr Q8H IV 10/19/24 18:00 10/19/24 18:39 250 MLS/HR Laboratory Results Laboratory Tests 10/19/24 02:50 Chemistry Test 10/19/24 02:50 Albumin 1.8 g/dL (3.2-4.8) L Calcium Level 7.3 mg/dL (8.7-10.4) L Magnesium Level 1.4 mg/dL (1.6-2.6) L Total Protein 5.6 g/dL (5.7-8.2) L LFT Test 10/19/24 02:50 Alanine Aminotransferase (ALT) < 9 U/L (7-40) Alkaline Phosphatase 78 U/L (46-116) Aspartate Amino Transferase (AST) 15 U/L (13-40) Total Bilirubin < 0.2 mg/dL (0.2-1.0) L Urinalysis Test 10/14/24 10:42 10/14/24 22:10 Urine Sodium 21 mmol/L (40-220) L Urine Color Light-orange (Yellow) Urine Clarity Ex.turbid (Clear) Urine pH 5.0 (5.0-9.0) Urine Specific [place] 1.017 (1.001-1.035) Urine Protein 1+ (Negative) H Urine Ketones Negative (Negative) Urine Blood 2+ /uL (Negative) H Urine Nitrite Negative (Negative) Urine Bilirubin Negative (Negative) Urine Urobilinogen Normal mg/dL (Negative) Urine Leukocyte Esterase 3+ /uL (Negative) Urine RBC 416 /hpf (0 - 3) Urine Microscopic WBC 354 /HPF (0-3) H Urine Squamous Epithelial Cells None seen /hpf (<5) Urine Bacteria Mod /hpf (None Seen) H Urine Hyaline Casts Many /lpf (0 - 2) Urine Mucus Few (None Seen) Urine Yeast with Hyphae Present /hpf Urine Yeast (Budding) Loaded /hpf (None Seen) Urine Creatinine 168.66 mg/dL (30.0-125.0) H Urine Protein/Creatinine Ratio 0.94 Urine Glucose Normal mg/dL (Normal) Urine Total Protein 158.7 mg/dL (1-14) H Blood Gas Results Test 10/19/24 07:27 Arterial Blood pH 7.446 (7.350-7.450) FiO2 % 30.0 Microbiology Microbiology Date/Time Source Procedure Growth Status 10/16/24 17:40 Catheter Tip Aerobic Culture - Preliminary Resulted 10/16/24 09:39 Penis Aerobic Culture - Final Methicillin Resistant S.aureus Presumptive Hellen tropicalis Complete 10/16/24 02:35 Blood Blood Culture - Preliminary NO GROWTH AFTER 72 HOURS OF INCUBATION. Resulted 10/14/24 22:10 Voided Urine Urine Culture - Final Presumptive Hellen tropicalis Complete 10/10/24 16:45 Sputum Expectorated Sputum Gram Stain - Final Complete 10/10/24 16:45 Sputum Expectorated Sputum Respiratory Culture - Final Complete Labs and/or images reviewed: Labs reviewed by me Assessment/Plan Assessment/Plan NEURO: Acute metabolic encephalopathy secondary to ischemic stroke Possible septic emboli due to persistent MRSA bacteremia History of Bipolar disorder RASS score: -3 - CT head without contrast demonstrated acute left MCA stroke - MRI of the head without contrast demonstrated large area of diffusion restriction of the left posterior temporal lobe and left parietal lobe, small area of punctate infarction along the right posterior frontal lobe to parietal lobe and imaging pattern may be compatible with embolic phenomenon. - continue aspirin 81 mg and Plavix 75 mg daily CARDIOVASCULAR: Acute infective endocarditis of mitral valve Possible chronic diastolic heart failure with preserved ejection fraction - TIM on 10/14/2024 demonstrated mitral valve, structurally normal, anterior leaflet has a 0.8 cm vegetation with a stalk. 0.8 X 0.4 cm, no significant MR or abscess is noted - TTE revealed EF 45-50%, anteroseptal hypokinesis, biatrial enlargement - Infectious disease on board - Continue IV ceftaroline and daptomycin PULMONARY: Rt sided opacity due to possible mucus plug/volume overload GASTROENTEROLOGY: Ruled out ileus Moderate to Severe colonic volume of stool - lactulose 30 mL q6 hr through G-tube daily - Miralax powder daily GENITOURINARY: JAYLEEN secondary to vancomycin toxicity Possible prostatic abscess, history of recent prostate surgery Acute complicated cystitis - CT abdomen pelvis demonstrated evidence of left sacroiliitis with gas and fluid extending into left pelvic muscles likely representing abscess. Suboptimal characterization due to lack of contrast. Bilateral inguinal adenopathy is likely reactive. Rectal wall thickening, correlate for symptoms of proctitis. - pending MRI of the pelvis - IV Bumex drip - D5 W with sodium bicarbonate at 100 mL/hours - Continue IV ceftaroline and daptomycin - ordered CT abdomen pelvis without contrast ENDOCRINE: Type 2 diabetes mellitus, hemoglobin A1c 13.2 Diabetic foot ulcer of right toe - CT right foot without contrast showed erosive changes involved proximal and distal phalanx with involvement of IP joint, possible osteomyelitis/septic arthritis, deep 1st digit plantar ulceration - scheduled for right foot I and D tomorrow - sliding scale of insulin METABOLIC: Moderate Protein calorie malnutrition, albumin 2.1 Hyperphosphatemia secondary to JAYLEEN Hypomagnesemia Metabolic acidosis due to JAYLEEN HEME: Acute on Chronic normocytic anemia secondary to dilutional versus anticoagulant use - 1 unit PRBC given - Hold DVT prophylaxis - Monitor H&H INFECTIOUS DISEASE: 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 Diabetic foot ulcer of right great toe Possible Prostatic abscess Acute Complicated cystitis Acute proctitis - Continue IV ceftaroline and daptomycin - new blood culture preliminary report demonstrated Gram-positive cocci in clusters - CT abdomen pelvis without contrast on 10/16/2024 showed foci of air at the left psoas muscle with erosive changes at the left anterior sacroiliac joint. Findings are concerning for acute osteomyelitis/septic arthritis with left psoas muscle abscess DIET: Tube feeding DVT prophylax: SCD GI prophylaxis: Protonix Bowel regimen: Lactulose Code status: Full code LINES/DRAINS/ACCESS: ETT: Intubated on 10/10/2024 IV access: Left IJ placed on 10/16/24 Drips: Levophed, Versed, fentanyl Kan catheter: Placed on 10/02/2024 Continuing current management. Hopefully can extubate soon. Continuing CPAP trial CT scan of the spine today. Discussed with mom in length regarding to CT and MRI of the brain. Her concern is if the patient had aneurysm. Explained to her the imaging did not show aneurysm but the patient does have ischemic CVA Critical care spent for this case is 39 minutes This medical document was created using an electronic medical record system with [employer] computerized dictation system. Although this document has been carefully reviewed, there may still be some phonetic and typographical errors. These areas are purely typographical due to imperfections of the software programs, and do not reflect any compromise in the patient's medical care. Plan discussed with: Other (mother) Date of Service: Oct 19, 2024 Billing Provider: RUCHI IRVING MD Common Visit Codes: 53917-HTAJXECT CARE 30-74 MIN RUCHI IRVING MD Oct 19, 2024 22:15
[2024-10-20] VITALS (105 sets, daily range): BP systolic 114–147; BP diastolic 72–96; PULSE 77–104; RESP 8–28; TEMP 98–98.4; O2SAT 94–99
[2024-10-20] MEDS: BUMETANIDE INJECTION 50 ML ONE (02:23)
[2024-10-20 04:38] LABS: Hematocrit 23.6 % (41.0-53.0); Hemoglobin 8.1 g/dL (13.5-17.5); Mean Corpuscular Hemoglobin 27.7 pg (28.0-32.0); Mean Corpuscular Volume 81.3 fL (80.0-100.0); Nucleated Red Blood Cells % 0.1 %
[2024-10-20 04:51] LABS: Alkaline Phosphatase 82 U/L (46-116); Anion Gap 10 (5-15); BUN/Creatinine Ratio 17.4 (10.0-20.0); Carbon Dioxide 28 mmol/L (20-31); Chloride 104 mmol/L (98-107); Sodium 142 mmol/L (136-145); Total Protein 5.7 g/dL (5.7-8.2)
[2024-10-20 04:55] LABS: Alanine Aminotransferase < 9 U/L (7-40); Albumin 1.8 g/dL (3.2-4.8); Blood Urea Nitrogen 34 mg/dL (9-23); Calcium 7.4 mg/dL (8.7-10.4); Glucose 129 mg/dL (74-106); Magnesium 1.5 mg/dL (1.6-2.6); Potassium 3.3 mmol/L (3.5-5.1)
[2024-10-20 04:56] LABS: Bilirubin, Total < 0.2 mg/dL (0.2-1.0)
--- NOTE | 2024-10-20 05:12 | DVH ---
CHEST RADIOGRAPH Indication: MECHANICAL VENTILATION Technique: Single frontal view of the chest was obtained COMPARISON: XY CHEST PORTABLE on DOS: 10/19/24, XY CHEST PORTABLE on DOS: 10/18/24, XY CHEST PORTABLE o n DOS: 10/17/24, XY CHEST PORTABLE on DOS: 10/17/24, XY CHEST PORTABLE on DOS: 10/16/24 FINDINGS: Lines and Tubes: Unchanged. Lungs: Grossly stable appearing mild bibasilar pulmonary airspace disease. Pleura: No effusion. No pneumothorax. Cardiomediastinal contours: Unremarkable Bones: Unremarkable IMPRESSION: 1. Stable appearing mild bibasilar pulmonary airspace disease. 2. Lines and tubes unchanged.
[2024-10-20] MEDS: POTASSIUM CHL 20MEQ/100ML 100 ML IV ONE (05:29)
[2024-10-20] MEDS: MAGNESIUM SULFATE 1GM/100ML 100 ML IV ONE (05:34)
[2024-10-20] MEDS: MAGNESIUM SULFATE 1GM/100ML 100 ML IV SCH (06:21)
[2024-10-20] MEDS: POTASSIUM CHL 20MEQ/100ML 100 ML IV SCH (06:35)
[2024-10-20 06:50] LABS: Base Excess 3.5 mmol/L (-2.0-3.0)
--- NOTE | 2024-10-20 10:04 | DVHPN2 ---
Progress Note - Dictate Date Seen: Oct 20, 2024 Medical Necessity Reason Pt with a Central, PICC or Fol: No Subjective Mr. Velazquez is a 39 years old gentleman with a history of diabetes, GERD, bipolar disorder, schizophrenia, chronic diabetic ulcer, he was brought to the [facility] on 10/02/2024 with a chief company of fever, the patient is also noticed to have altered mental status, in the CT brain scan showed evidence suggestive of left MCA territory acute stroke. Because of fever, worsening mental status, that is was intubated and transferred to ICU on 10/10/24 I have seen and examined the patient, talked to his nurse, he is intubated, sedated, responsive to light painful stimuli, possible to light touch as well. Versed 6 mg/hour, fentanyl 225 mcg/hour Blood culture, 10/02/2024: MRSA Blood culture, 10/03/2024: MRSA Blood culture, 10/04/2024: MRSA UDS, 10/03/2024: Ms. Amphetamine, 09/3124: Negative Urinalysis, 10/02/2024: WBC: 30, urine leukocyte esterase: Trace WBC/HB/PLT/MCV, 10/06/2024: 5/8.7/130/82.4, 10/10/2024: 6.5/8.1/211/84.5, , 10/11/2024: 6.1/7.5/176/85.9 PTT/INR/eight six, 10/02/2024: 12.3/1.18/34.4 Na, 10/07/2024: 144 10/10/2024: 151, 10/11/2024: 148 CMP, 10/05/2024: Unremarkable BUN/CR, 10/10/2024: 22/0.96, 10/11/2024: 32/1.94 GFR, 10/10/2024: 102, 10/11/2024: 44 Liver function tests, 10/11/2024: Unremarkable HGB A1c, 05/10/2023: >14 TG/HDL/LDL/HDL, 10/07/2024: 153/87/39/9 TIM, 10/14/2024: Left Ventricle: Normal LV size and function, LVEF estimated at 60% Right Ventricle: NOrmal RV size and function Left atrium: normal Right atrium: normal RA Left atrial appendage: no thrombus noted, d Aortic valve: trileaflet valve, no severe or AI Mitral Valve: structurally normal, anterior leaflet has 0. 8 cm vegetation with stalk . 0.8 x 0.4 cm, no significant MR is noted however, no abscess noted Tricuspid Valve: mild tricuspid regurgitaiton, no TS Pulmonic Valve: structurally normal, no severe PIor PS Interatrial septum: negative color flow for R to L shunt, negative bubble study Ascending aorta: no severe plaquing Echocardiogram, 10/06/2024: Technically good study. Off axis views. Limited views obtained. There appears to be biatrial enlargement and LV enlargement. Mild aortic root enlargement. Valves appear to be structurally normal. Left ventricular function is borderline at 45 to 50% anteroseptal hypokinesis.. Normal RV function. Mild TR. No pericardial effusion masses or vegetations. CT head, 10/05/2024: Acute left MCA territory infarct in left insula/temporal operculum/temporal lobe. No hemorrhage or mass effect Sedated, 10/09/2024: 1. Interval progression in evolution of left middle cerebral artery territory infarct involving the insula / temporal are operculum/ temporal lobe with associated loss of khoury-white matter differentiation and progressively diminished parenchymal attenuation. 2. No evidence of intracranial hemorrhage, mass effect, midline shift or herniation. 3. Chronic sequelae of microangiopathy and atrophic cortical volume loss. CT abdomen/pelvis, 10/06/2024: 1. Trace bilateral pleural effusions with adjacent atelectasis and patchy posterior bibasilar pulmonary infiltrate. 2. Hepatomegaly. 3. Excess retained colorectal stool and moderate proximal mechanical small-bowel obstruction. 4. Moderate gas and Kan catheter within the urinary bladder CT abdomen/pelvis, 10/16/2024: Foci of air at the left psoas muscle with erosive changes at the left anterior sacroiliac joint. Findings are concerning for acute osteomyelitis/septic arthritis with left psoas muscle abscess. Evaluated on this study is extremely limited due to lack of IV contrast and artifact. Suggest MRI with and without IV contrast for further evaluation. If MRI cannot be performed, contrast enhanced CT is suggested. Small to moderate amount of ascites. Extensive body wall edema. Small to moderate left and small right pleural effusions. Diabetes mellitus. Constipation. CTA head, neck, 10/05/2024: 1. No evidence of acute intracranial hemorrhage, mass effect or hydrocephalus. 2. No evidence of hemodynamically significant intracranial stenosis, proximal occlusion or aneurysm. 3. No evidence of hemodynamically significant cervical stenosis or dissection MRI head, 10/15/2024: 1. Large area of diffusion restriction of the left posterior temporal lobe and left parietal lobe. 2. Small areas of punctate infarction along the right posterior frontal lobe to parietal lobe. 3. Imaging pattern may be compatible with embolic phenomenon vital signs Vital Sign Date Time Temp Pulse Resp B/P (MAP) Pulse Ox O2 Delivery O2 Flow Rate FiO2 10/20/24 07:54 81 24 127/81 (96) 95 30 10/20/24 06:00 Mechanical Ventilator+ 10/20/24 04:00 98.4 98.4 Total Intake and Output 10/19/24 10/19/24 10/20/24 15:00 23:00 07:00 Intake Total 1132.0 ml 2032.5 ml 1640.0 ml Output Total 1150 ml 600 ml 2200 ml Balance -18.0 ml 1432.5 ml -560.0 ml medications Current Medications Medications Dose Ordered Sig/Dion Route Start Time Stop Time Status Last Admin Dose Admin Acetaminophen 650 mg Q6HP PRN LA 10/10/24 10:00 10/10/24 15:18 650 MG Midazolam HCl 50 ml @ 1 mls/hr Q24H IV 10/10/24 17:15 10/20/24 02:44 6 MLS/HR Fentanyl Citrate 250 ml @ 2.5 mls/hr Q24H IV 10/10/24 17:15 10/20/24 06:42 22.5 MLS/HR Propofol 100 ml @ 2.496 mls/ hr Q24H IV 10/10/24 17:15 Norepinephrine Bitartrate 250 ml @ 3.75 mls/hr Q24H IV 10/10/24 17:45 10/15/24 04:04 3.75 MLS/HR Diagnostic Test (Pha) 1 strip Q6HR 10/11/24 00:00 10/20/24 05:44 1 STRIP Insulin Human Regular FOLLOW SLIDING SCALE Q6HR SC 10/11/24 00:00 10/20/24 05:51 2 UNITS Dextrose 50 ml UD IV 10/10/24 22:00 Amino Acids 0 ml @ 0 mls/hr PER PHARMACY IV 10/10/24 19:00 UNV Enteral Nutritional Formula 1,000 ml 40ML/HR GT 10/10/24 21:15 10/18/24 05:44 1,000 ML Daptomycin 750 mg/ Sodium Chloride 50 ml @ 100 mls/hr DAILY IV 10/14/24 10:00 10/20/24 09:10 100 MLS/HR Bumetanide 12.5 mg/Miscellaneous 50 ml @ 4 mls/hr [id number] IV 10/15/24 13:00 10/20/24 02:38 4 MLS/HR Micafungin Sodium 100 mg/Sodium Chloride 100 ml @ 100 mls/hr DAILY IV 10/16/24 10:00 10/19/24 10:29 100 MLS/HR Lactulose 30 ml Q6HR PO 10/16/24 08:15 10/20/24 06:20 30 ML Polyethylene Glycol 17 gm DAILYPRN PRN PO 10/16/24 08:15 Pantoprazole Sodium 40 mg BID IV 10/16/24 08:30 10/20/24 09:10 40 MG Sodium Bicarbonate 75 ml/ Dextrose 1,075 ml @ 75 mls/hr [id number] IV 10/16/24 11:15 10/19/24 20:09 75 MLS/HR Ceftaroline Fosamil 600 mg/ Sodium Chloride 250 ml @ 250 mls/hr Q8H IV 10/19/24 18:00 10/20/24 01:38 250 MLS/HR Potassium Chloride 100 ml @ 50 mls/hr Q2H IV 10/20/24 05:30 10/20/24 11:29 10/20/24 06:35 50 MLS/HR objective General: the patient is well developed and nourished. No acute distress. Intubated MUSCULOSKELETAL EXAM: Chronic ulcer in the right big toe, a small skin lesion in the left big toe MENTAL STATUS: Subjective SPEECH, LANGUAGE, HIGHER CORTICAL FUNCTION: Subjective CRANIAL NERVES: Pupils are equal, round and reactive. There is doll's eye, corneal reflexes. No sign of facial weakness. He has gag reflexes SENSATION: Responsive to stroke painful stimuli MOTOR: Muscle tone feels normal, no spontaneous extremity movement REFLEXES: Deep tendon reflexes feel symmetrical. No pathological reflexes. CEREBELLAR/COORDINATION: Deferred GAIT/STATION: deferred laboratory and microbiology Laboratory Tests 10/20/24 03:30 Test 10/20/24 03:30 Range/Units Serum Glucose 129 H 74-106 mg/dL Problem List Altered mental status, secondary to Acute stroke Metabolic encephalopathy Rule out intracranial infection Acute respiratory failure Abnormal CT head Acute stroke Rule out encephalitis Prostatic abscess vs hematoma Rule out endocarditis Sepsis with MRSA Chronic diabetic wound Endocarditis Osteomyelitis Psoas abscess History of substance abuse Assessment/Plan Monitoring Supportive treatment ICU care Follow up blood tests MRI lumbar spine Stabilize vitals Respiratory support/vent management Aspirin 81 mg daily (on hold) D/C Lipitor 20 mg daily (LDL: 39) IV antibiotics Haldol p.r.n. for agitation DVT prophylaxis/Lovenox (on hold) Infectious disease on case Need to quit substance abuse Orthopedic on case More recommendation per clinical course This medical document was created using an electronic medical record system with [employer] dictation system. Although this document has been carefully reviewed, there may still be some phonetic and typographical errors. These areas are purely typographical due to imperfections of the software programs, and do not reflect any compromise in the patient's medical care. Prognosis Guarded Dietary Evaluation Review Comments: 1) Add cardiac restriction to 60g CCHO diet 2) Initiate Glucerna qd. Encourage optimal PO intake 3) Follow-up with urology and surgery 4) Follow-up with social media coordinator r/t methamphetamine abuse 5) Continue to monitor I&O, labs, and skin integrity Expected Outcomes/Goals: 1) appetite and labs to improve 2) wound to improve 3) f/u in 3-5 days Plan discussed with: Other CALEB PAYNE MD Oct 20, 2024 10:04
[2024-10-20] MEDS: POTASSIUM CHL 20MEQ/100ML 200 ML IV ONE (10:47)
--- NOTE | 2024-10-20 11:45 | DVHINCON2 ---
Consultation - Surgical Date Seen: Oct 21, 2024 Referring Physician Referring Physician Sandip Bach MD Reason for Consultation Reason for Visit: Sepsis, unspecified organism, CT findings History of Present Illness History of Present Illness History of Present Illness The patient is a 39-year-old male with past medical history of diabetes mellitus, MRSA of the urine, hyperlipidemia, and methamphetamine abuse presented to [facility] ED with complaint of fever. Patient reports he has be en experiencing fever, associated with generalized weakness, abdominal pain, presents with Kan catheter in place due to recent prostate surgery. Patient was seen and evaluated in the ED, laboratory data shows WBC 6.1, hemoglobin 9.5, hematocrit 28.7, platelets 203, sodium 130, potassium 4.0, BUN 23, creatinine 1.12, glucose 382, calcium 8.5, albumin 3.1, blood pressure 110/70, heart rate 136 trending down to 96, temperature 103.2 F trending down to 97.6 F, O2 saturation 95% on room air. Abdomen/pelvis CT revealing evidence of left sacroiliitis with gas and fluid extending into left pelvic muscles likely representing abscess; rectal wall thickening correlate for symptoms of proctitis; Kan catheter decompressed urinary bladder with wall thickening; hypodense appearance of the mildly enlarged prostate, cystitis and prostatitis or possible. Patient was started on IV antibiotic regimen vancomycin, please see medication orders section in the computer. On my assessment, patient denied chest pain, no headache, no dizziness, no diaphoresis, no shortness of breaths, no nausea, no vomiting, no fever, no chills. Patient was admitted for further evaluation and medical management. Past Medical/Surgical History Past Medical/Surgical History Past Medical History DM, HLD, MRSA of urine, Methamphetamine abuse Past Surgical History Prostate surgery Family and Social History Family and Social History Family History Reviewed, noncontributory to the management of this case. Past Social History The patient lives at home, denies smoking, alcohol abuse has Methamphetamine abuse Allergies and medications Allergies: Coded Allergies: No Known Drug Allergy (Unverified Allergy, Unknown, 10/03/24) Home Meds Reported Medications Semaglutide (Ozempic) 8 Mg/3 Ml Inj, 2 MG SC QWEEKLY for 28 Days, #3 10/03/24 Insulin Glargine (Lantus Solostar) 100 Unit/Ml Inj, 20 UNIT SC QPM for 75 Days, #15 10/03/24 Empagliflozin (Jardiance) 25 Mg Tab, 1 TAB PO DAILY for 90 Days, #90 08/24/24 Metformin Hydrochloride (Metformin Hcl) 1,000 Mg Tab, 1 TAB PO BID for 90 Days, #180 08/24/24 Atorvastatin Calcium (Lipitor) 10 Mg Tab, 1 TAB PO QPM for 90 Days, #90 05/10/23 Review of systems Review of Systems: Deferred (pt intubated and sedated in ICU) Examination Vital signs Imaging: Pending MRI lumbar and pelvis ORDERING PHYSICIAN: GAURI IGNACIO RESIDENT PROCEDURE(s): ABPL - CT AB PEL WO CON-NO ORAL OR IV REASON: ? Pelvic abscess ORDER NUMBER(s): [id number], ACCESSION NUMBER(s): [id number] CLINICAL HISTORY: Pelvic abscess TECHNIQUE: CT of the abdomen and pelvis was performed without IV contrast. This exam was performed according to our departmental dose optimization program. Up -to-date CT equipment and radiation dose reduction techniques are utilized as appropriate. CTDI 23.3 DLP 1439 COMPARISON: CT CT AB PEL WITH IV CON ONLY on DOS: 10/06/24, CT CT AB PEL WO CON-NO ORAL OR IV on DOS: 10/02/24, CT CT AB PEL WITH IV CON ONLY on DOS: 08/22/24 FINDINGS: Evaluation is limited due to patient arm positioning resulting in significant streak artifact. The spleen, adrenal glands, pancreas, gallbladder, liver, and prostate gland are grossly unremarkable. The bladder decompressed by Kan. There are numerous foci of air at the left psoas muscle. There are erosive changes at the left anterior sacroiliac joint. The abdominal aorta is normal in course and caliber. There are minimal aortic atherosclerotic calcifications. There are calcifications of the vas deferens. There is no free intraperitoneal air. There is a small to moderate amount of ascites. There is extensive body wall edema. There is no enlarged abdominal pelvic lymph node. There is no bowel wall thickening or dilatation. The appendix is normal. There is moderate to large amount of stool in the colon. A nasogastric tube terminates at the stomach. The imaged lower thorax demonstrates small to moderate left and small right pleural effusions with adjacent atelectasis. Impression: Foci of air at the left psoas muscle with erosive changes at the left anterior sacroiliac joint. Findings are concerning for acute osteomyelitis/septic arthritis with left psoas muscle abscess. Evaluated on this study is extremely limited due to lack of IV contrast and artifact. Suggest MRI with and without IV contrast for further evaluation. If MRI cannot be performed, contrast enhanced CT is suggested. Small to moderate amount of ascites. Extensive body wall edema. Small to moderate left and small right pleural effusions. Diabetes mellitus. Constipation. Vital Signs Date Time Temp Pulse Resp B/P (MAP) Pulse Ox O2 Delivery O2 Flow Rate FiO2 10/20/24 11:01 129/84 10/20/24 10:15 81 24 95 30 10/20/24 06:00 Mechanical Ventilator+ 10/20/24 04:00 98.4 98.4 Medications Current Medications Medications (Trade) Dose Ordered Sig/Dion Route PRN Reason Start Time Stop Time Status Last Admin Ceftaroline Fosamil 600 mg/ Sodium Chloride 250 ml @ 250 mls/hr Q8H IV 10/19/24 18:00 10/20/24 01:38 Potassium Chloride 100 ml @ 50 mls/hr Q2H IV 10/20/24 05:30 10/20/24 11:29 DC 10/20/24 11:01 Magnesium Sulfate/ Dextrose 100 ml @ 100 mls/hr Q1HR IV 10/20/24 06:00 10/20/24 07:59 DC 10/20/24 06:21 Laboratory Labs Test 10/20/24 06:43 10/20/24 03:30 10/16/24 15:10 10/15/24 08:34 Range/Units Blood Gas Specimen Type Arterial Blood Gas Sample Site Right radial Blood Gas Patient Temperature 37.0 Arterial Blood Date Drawn [id number] Arterial Blood pH 7.491 H 7.350-7.450 Arterial Blood Partial Pressure CO2 36.1 35.0-48.0 mmHg Arterial Blood Partial Pressure O2 95.2 83.0-108.0 mmHg Arterial Blood HCO3 27.0 21.0-28.0 mmol/L Arterial Blood Oxygen Saturation 97.2 94.0-98.0 % Arterial Blood Base Excess 3.5 H -2.0-3.0 mmol/L Arterial Blood Oxyhemoglobin 96.3 94.0-98.0 % Arterial Blood Carboxyhemoglobin 0.9 0.5-1.5 % Arterial Blood Methemoglobin 0.0 0.0-1.5 % Simone Test Modified Blood Gas Total Hemoglobin 8.80 L 13.5-17.5 g/dL Blood Gas Set Respiration Rate 24.0 Blood Gas Modality Vent - ac FiO2 % 30.0 Blood Gas Tidal Volume 500.0 Blood Gas PEEP or CPAP 5.0 White Blood Count 5.9 4.4-10.8 10^3/uL Red Blood Count 2.91 L 4.5-5.90 10^6/uL Hemoglobin 8.1 L 13.5-17.5 g/dL Hematocrit 23.6 L 41.0-53.0 % Mean Corpuscular Volume 81.3 80.0-100.0 fL Mean Corpuscular Hemoglobin 27.7 L 28.0-32.0 pg Mean Corpuscular Hemoglobin Concent 34.1 32.0-36.0 g/dL Red Cell Distribution Width 16.1 H 11.8-14.3 % Platelet Count 138 L 140-450 10^3/uL Mean Platelet Volume 7.0 6.9-10.8 fL Neutrophils (%) (Auto) 69.0 37.0-80.0 % Lymphocytes (%) (Auto) 17.8 10.0-50.0 % Monocytes (%) (Auto) 10.3 0.0-12.0 % Eosinophils (%) (Auto) 2.2 0.0-7.0 % Basophils (%) (Auto) 0.7 0.0-2.0 % Neutrophils # (Auto) 4.1 1.6-8.6 10 ^3/uL Lymphocytes # (Auto) 1.0 0.4-5.4 10 ^3/uL Monocytes # (Auto) 0.6 0-1.3 10 ^3/uL Eosinophils # (Auto) 0.1 0-0.8 10 ^3/uL Basophils # (Auto) 0 0-0.2 10 ^3/uL Nucleated Red Blood Cells 0.1 % Sodium Level 142 136-145 mmol/L Potassium Level 3.3 L 3.5-5.1 mmol/L Chloride Level 104 98-107 mmol/L Carbon Dioxide Level 28 20-31 mmol/L Anion Gap 10 5-15 Blood Urea Nitrogen 34 H 9-23 mg/dL Creatinine 1.95 H 0.700-1.30 mg/dL Glomerular Filtration Rate Calc 44 >90 mL/min BUN/Creatinine Ratio 17.4 10.0-20.0 Serum Glucose 129 H 74-106 mg/dL Calcium Level 7.4 L 8.7-10.4 mg/dL Magnesium Level 1.5 L 1.6-2.6 mg/dL Total Bilirubin < 0.2 L 0.2-1.0 mg/dL Aspartate Amino Transferase (AST) 16 13-40 U/L Alanine Aminotransferase (ALT) < 9 7-40 U/L Alkaline Phosphatase 82 46-116 U/L Total Protein 5.7 5.7-8.2 g/dL Albumin 1.8 L 3.2-4.8 g/dL Iron Level 36 L 65-175 ug/dL Total Iron Binding Capacity 110 L 250-425 ug/dL Percent Iron Saturation 32.7 20-55 % Prothrombin Time 13.1 H 9.3-11.8 sec Prothrombin Time INR 1.26 H 0.9-1.15 Activated Partial Thromboplast Time 36.6 H 24.5-34.5 SEC Test 10/14/24 22:10 10/14/24 10:42 10/14/24 05:04 10/14/24 03:32 Range/Units Urine Color Light-orange Yellow Urine Clarity Ex.turbid Clear Urine pH 5.0 5.0-9.0 Urine Specific [place] 1.017 1.001-1.035 Urine Protein 1+ H Negative Urine Ketones Negative Negative Urine Blood 2+ H Negative /uL Urine Nitrite Negative Negative Urine Bilirubin Negative Negative Urine Urobilinogen Normal Negative mg/dL Urine Leukocyte Esterase 3+ Negative /uL Urine RBC 416 0 - 3 /hpf Urine Microscopic WBC 354 H 0-3 /HPF Urine Squamous Epithelial Cells None seen <5 /hpf Urine Bacteria Mod H None Seen /hpf Urine Hyaline Casts Many 0 - 2 /lpf Urine Mucus Few None Seen Urine Yeast with Hyphae Present /hpf Urine Yeast (Budding) Loaded None Seen /hpf Urine Creatinine 168.66 H 30.0-125.0 mg/dL Urine Protein/Creatinine Ratio 0.94 Urine Glucose Normal Normal mg/dL Urine Total Protein 158.7 H 1-14 mg/dL Chlamydia trachomatis (LESLY) Negative Negative Neisseria gonorrhoeae (LESLY) Negative Negative Urine Sodium 21 L 40-220 mmol/L Hemoglobin A1c 13.2 H <5.7 % A1C Creatine Kinase 34 L 46-171 U/L Test 10/13/24 07:26 10/13/24 03:16 10/12/24 14:00 10/11/24 22:17 Range/Units Blood Gas Critical Value Read Back yes Blood Gas Notified Whom zuleyka danielson md Blood Gas Notified Time [id number] Blood Gas Notified By dino zhang rrt Phosphorus Level 5.5 H 2.4-5.1 mg/dL Complement C3 67 L 82-167 mg/dL Complement C4 20 12-38 mg/dL Vancomycin Level Trough 38.2 *H 5-10 ug/mL Test 10/11/24 21:31 10/10/24 05:07 10/07/24 13:01 10/07/24 09:00 Range/Units B-Type Natriuretic Peptide 102.53 0-100 pg/mL Random Vancomycin Level 15.2 H 5-10 ug/mL HIV (1&2) Antibody Negative Negative Erythrocyte Sedimentation Rate 102 H 0-20 mm/hr C-Reactive Protein High Sensitivity 19.31 H <1.0 mg/dL Triglycerides Level 153 H < 150 mg/dL Cholesterol Level 87 < 200 mg/dL LDL Cholesterol 39 < 100 mg/dL HDL Cholesterol 9 L 40-59 mg/dL Treponema pallidum Antibody Non-reactive Negative Test 10/05/24 18:40 10/05/24 15:02 10/05/24 11:48 10/05/24 02:47 Range/Units Differential Total Cells Counted 100.0 100 Neutrophils % (Manual) 73 37.0-80.0 Band Neutrophils % (Manual) 5 Lymphocytes % (Manual) 13 10.0-50.0 Monocytes % (Manual) 8 0-12 Eosinophils % (Manual) 0 0-7 Basophils % (Manual) 0 0.0-2.0 Metamyelocytes % (manual) 0 Myelocytes % (Manual) 0 Promyelocytes % (Manual) 0 Blast Cells % (Manual) 0 Reactive Lymphocytes 1 Platelet Estimate Decreased Ammonia < 10 L 11-32 umol/L Urine Opiates Screen Neg NEGATIVE Urine Fentanyl Screen Neg NEGATIVE Urine Barbiturates Screen Neg NEGATIVE Urine Phencyclidine Screen Neg NEGATIVE Urine Amphetamines Screen Neg NEGATIVE Urine Benzodiazepines Screen Neg NEGATIVE Urine Cocaine Screen Neg NEGATIVE Urine Cannabinoids Screen Neg NEGATIVE POC Glucose 226 H 70-106 mg/dl Anisocytosis (manual) Slight Thyroid Stimulating Hormone (TSH) 1.36 0.55-4.78 uIU/mL Test 10/03/24 04:25 10/02/24 21:24 Range/Units Hepatitis B Surface Antigen Negative Negative Hepatitis C Antibody Negative Negative Lactic Acid Level 1.3 0.4-2.0 mmol/L Microbiology Date/Time Source Procedure Growth Status 10/16/24 17:40 Catheter Tip Aerobic Culture - Preliminary Resulted 10/16/24 09:39 Penis Aerobic Culture - Final Methicillin Resistant S.aureus Presumptive Hellen tropicalis Complete 10/16/24 02:35 Blood Blood Culture - Preliminary NO GROWTH AFTER 72 HOURS OF INCUBATION. Resulted 10/14/24 22:10 Voided Urine Urine Culture - Final Presumptive Hellen tropicalis Complete 10/10/24 16:45 Sputum Expectorated Sputum Gram Stain - Final Complete 10/10/24 16:45 Sputum Expectorated Sputum Respiratory Culture - Final Complete Examination: Any Other System: (Patient is intubated and sedated in the ICU at this time. Physical exam will be completed when the MRI is completed to compare findings and we need to be able to evaluate him motor exam which is not possible right now) Problem List/Assessment/Plan Problems: (1) Psoas muscle abscess Assessment and Plan Foci of air at the left psoas muscle with erosive changes at the left anterior sacroiliac joint. Findings are concerning for acute osteomyelitis/septic arthritis with left psoas muscle abscess Pending MRI 10/20/2024, 10/21/2024 @ 12:18 pm spine surgery is not able to make any recommendations until the studies are complete Follow recommendations from Infectious diseases consult Further care and management per admitting team's discretion Due to patient's current metabolic derangement and poor health status continued UTI symptoms concern for current active infection patient would not be a surgical candidate for spine surgery. When there is evidence of clinical improvement, and the need for surgical intervention developed such as progressive worsening of neurologic deficits, e pidural abscess, then surgery recommendations we will be updated. Since there is no epidural abscess present there is no indication for spine surgery at this time It would be beneficial to obtain a MRI with and without contrast to evaluate the left psoas muscle and erosive changes to the left anterior sacroiliac joint. Once the patient recovers from his current state band is able to be discharged it is recommended of his discharge on antibiotics, please have the patient follow up either with her primary care doctor or infectious diseases physician to determine the length of antibiotic treatment. During this hospital stay if the patient's condition does not improve or if he worsens, example white blood cell count continues to increase, accompanying with fevers, pain that increases, neurologic decline then spine surgery updates will be given. If the patient's current state continues to decline consideration for transfer for higher level of care would be recommended by spine surgery Call with questions Julian Ramos [facility] Orthopaedic Spine Surgery nurse practitioner For Dr Simón Cain Patient was examined, chart reviewed, labs evaluated, and diagnostic studies and findings analyzed. Case was discussed with Dr. Daniel Cain who formulated the plan of care. This medical document was created using an electronic medical record system with [employer] dictation system. Although this document has been carefully reviewed, there might still be some phonetic and typographical errors. These areas are purely typographical due to imperfections of the software programs, and do not reflect any compromise in the patient's medical care. Plan discussed with Plan discussed with: Other (DR Cain spoke to admitting physician) Visit Coding Surgery Date of Service if different f: Oct 21, 2024 Billing Provider: BRIAN RAMOS NP Surgery Visit Codes: 84724 - INP CONSULT <40 MIN BRIAN RAMOS NP Oct 20, 2024 11:45
--- NOTE | 2024-10-20 14:27 | DVHPN2 ---
Progress Note Date Seen: Oct 20, 2024 Resident Creating Document: NICOLETTE ROSADO RESIDENT Medical Necessity Reason Pt with a Central, PICC or Fol: No Subjective Review of Systems Patient seen and examined at bedside Remains intubated and sedated Last bowel movement 10/17/2024 Stable H&H No signs of active GI bleed Objective vital signs Vital Sign Date Time Temp Pulse Resp B/P (MAP) Pulse Ox O2 Delivery O2 Flow Rate FiO2 10/20/24 13:35 79 24 126/80 (95) 95 30 10/20/24 06:00 Mechanical Ventilator+ 10/20/24 04:00 98.4 98.4 Total Intake and Output 10/19/24 10/19/24 10/20/24 15:00 23:00 07:00 Intake Total 1132.0 ml 2032.5 ml 1640.0 ml Output Total 1150 ml 600 ml 2200 ml Balance -18.0 ml 1432.5 ml -560.0 ml medications Current Medications Medications Dose Ordered Sig/Dion Route Start Time Stop Time Status Last Admin Dose Admin Acetaminophen 650 mg Q6HP PRN OR 10/10/24 10:00 10/10/24 15:18 650 MG Midazolam HCl 50 ml @ 1 mls/hr Q24H IV 10/10/24 17:15 10/20/24 11:01 6 MLS/HR Fentanyl Citrate 250 ml @ 2.5 mls/hr Q24H IV 10/10/24 17:15 10/20/24 06:42 22.5 MLS/HR Propofol 100 ml @ 2.496 mls/ hr Q24H IV 10/10/24 17:15 Norepinephrine Bitartrate 250 ml @ 3.75 mls/hr Q24H IV 10/10/24 17:45 10/15/24 04:04 3.75 MLS/HR Diagnostic Test (Pha) 1 strip Q6HR 10/11/24 00:00 10/20/24 12:14 1 STRIP Insulin Human Regular FOLLOW SLIDING SCALE Q6HR SC 10/11/24 00:00 10/20/24 12:22 4 UNITS Dextrose 50 ml UD IV 10/10/24 22:00 Amino Acids 0 ml @ 0 mls/hr PER PHARMACY IV 10/10/24 19:00 UNV Enteral Nutritional Formula 1,000 ml 40ML/HR GT 10/10/24 21:15 10/18/24 05:44 1,000 ML Daptomycin 750 mg/ Sodium Chloride 50 ml @ 100 mls/hr DAILY IV 10/14/24 10:00 10/20/24 09:10 100 MLS/HR Bumetanide 12.5 mg/Miscellaneous 50 ml @ 4 mls/hr [id number] IV 10/15/24 13:00 10/20/24 10:22 4 MLS/HR Micafungin Sodium 100 mg/Sodium Chloride 100 ml @ 100 mls/hr DAILY IV 10/16/24 10:00 10/20/24 10:33 100 MLS/HR Lactulose 30 ml Q6HR PO 10/16/24 08:15 10/20/24 12:23 30 ML Polyethylene Glycol 17 gm DAILYPRN PRN PO 10/16/24 08:15 Pantoprazole Sodium 40 mg BID IV 10/16/24 08:30 10/20/24 09:10 40 MG Ceftaroline Fosamil 600 mg/ Sodium Chloride 250 ml @ 250 mls/hr Q8H IV 10/19/24 18:00 10/20/24 13:25 250 MLS/HR Examination General: RASS -3, afebrile, mucosae are moist Cardiovascular: Normal S1 and S2. No murmurs, gallops or rubs Respiratory: Mechanically assisted ventilation, equal bilateral airway entree. Clear lung sounds on auscultation Abdomen: Soft, nontender, no organomegaly, sluggish bowel sounds MSK/skin: Mobilization of limbs cannot be evaluated. Skin is dry and warm. bilateral pedal edema +, S/P rt toe debridement and covered with dressing. Neurological: Orientation cannot be assessed. No apparent motor no sensitive deficits. Pupils are isocoric and reactive laboratory and microbiology Laboratory Tests 10/20/24 03:30 Test 10/20/24 03:30 Range/Units Serum Glucose 129 H 74-106 mg/dL Microbiology Date/Time Source Procedure Growth Status 10/16/24 17:40 Catheter Tip Aerobic Culture - Preliminary Resulted 10/16/24 09:39 Penis Aerobic Culture - Final Methicillin Resistant S.aureus Presumptive Hellen tropicalis Complete 10/16/24 02:35 Blood Blood Culture - Preliminary NO GROWTH AFTER 72 HOURS OF INCUBATION. Resulted 10/14/24 22:10 Voided Urine Urine Culture - Final Presumptive Hellen tropicalis Complete 10/10/24 16:45 Sputum Expectorated Sputum Gram Stain - Final Complete 10/10/24 16:45 Sputum Expectorated Sputum Respiratory Culture - Final Complete Problem List/Assessment/Plan Problem List/Assessment/Plan Anemia, possibly related to chronic disease with MCV 86.5 Proctitis MRSA bacteremia Septic emboli due to above Acute left MCA stroke Infective endocarditis with mitral valve vegetations Sepsis Ruled out ileus Constipation with moderate to severe colonic volume of stool Plan: Continue conservative management, observation Stool occult blood pending IV Protonix b.i.d. Already on lactulose Pending MRI lower extremity Orthopedic surgeon on board Continue antibiotics Thank you so much for the opportunity to consult on your patient. GI team will follow the patient. In case of any questions or concerns please feel free to reach out. Plan discussed with Dr. Saunders Plan discussed with: Other (Dr. Knox, RN) Dietary Evaluation Review Comments: 1) Add cardiac restriction to 60g CCHO diet 2) Initiate Glucerna qd. Encourage optimal PO intake 3) Follow-up with urology and surgery 4) Follow-up with marriage and family social worker r/t methamphetamine abuse 5) Continue to monitor I&O, labs, and skin integrity Expected Outcomes/Goals: 1) appetite and labs to improve 2) wound to improve 3) f/u in 3-5 days NICOLETTE ROSADO RESIDENT Oct 20, 2024 14:27
--- NOTE | 2024-10-20 15:11 | DVHPN2 ---
Consult Progress Note Date Seen: Oct 20, 2024 Subjective Patient reports: No new complaints Other Systems: The patient remains in the ICU intubated, sedated with minimal vent settings, no further fever, patient is continued on fentanyl and Versed off of now of vasopressors on IV drip of bumetanide. Objective vital signs Vital Sign Date Time Temp Pulse Resp B/P (MAP) Pulse Ox O2 Delivery O2 Flow Rate FiO2 10/20/24 13:35 79 24 126/80 (95) 95 30 10/20/24 06:00 Mechanical Ventilator+ 10/20/24 04:00 98.4 98.4 Total Intake and Output 10/19/24 10/19/24 10/20/24 15:00 23:00 07:00 Intake Total 1132.0 ml 2032.5 ml 1640.0 ml Output Total 1150 ml 600 ml 2200 ml Balance -18.0 ml 1432.5 ml -560.0 ml medications Current Medications Medications Dose Ordered Sig/Dion Route Start Time Stop Time Status Last Admin Dose Admin Acetaminophen 650 mg Q6HP PRN CA 10/10/24 10:00 10/10/24 15:18 650 MG Midazolam HCl 50 ml @ 1 mls/hr Q24H IV 10/10/24 17:15 10/20/24 11:01 6 MLS/HR Fentanyl Citrate 250 ml @ 2.5 mls/hr Q24H IV 10/10/24 17:15 10/20/24 06:42 22.5 MLS/HR Propofol 100 ml @ 2.496 mls/ hr Q24H IV 10/10/24 17:15 Norepinephrine Bitartrate 250 ml @ 3.75 mls/hr Q24H IV 10/10/24 17:45 10/15/24 04:04 3.75 MLS/HR Diagnostic Test (Pha) 1 strip Q6HR 10/11/24 00:00 10/20/24 12:14 1 STRIP Insulin Human Regular FOLLOW SLIDING SCALE Q6HR SC 10/11/24 00:00 10/20/24 12:22 4 UNITS Dextrose 50 ml UD IV 10/10/24 22:00 Amino Acids 0 ml @ 0 mls/hr PER PHARMACY IV 10/10/24 19:00 UNV Enteral Nutritional Formula 1,000 ml 40ML/HR GT 10/10/24 21:15 10/18/24 05:44 1,000 ML Daptomycin 750 mg/ Sodium Chloride 50 ml @ 100 mls/hr DAILY IV 10/14/24 10:00 10/20/24 09:10 100 MLS/HR Bumetanide 12.5 mg/Miscellaneous 50 ml @ 4 mls/hr [id number] IV 10/15/24 13:00 10/20/24 10:22 4 MLS/HR Micafungin Sodium 100 mg/Sodium Chloride 100 ml @ 100 mls/hr DAILY IV 10/16/24 10:00 10/20/24 10:33 100 MLS/HR Lactulose 30 ml Q6HR PO 10/16/24 08:15 10/20/24 12:23 30 ML Polyethylene Glycol 17 gm DAILYPRN PRN PO 10/16/24 08:15 Pantoprazole Sodium 40 mg BID IV 10/16/24 08:30 10/20/24 09:10 40 MG Ceftaroline Fosamil 600 mg/ Sodium Chloride 250 ml @ 250 mls/hr Q8H IV 10/19/24 18:00 10/20/24 13:25 250 MLS/HR laboratory and microbiology Laboratory Tests 10/20/24 03:30 Test 10/20/24 03:30 Range/Units Serum Glucose 129 H 74-106 mg/dL GEN: Patent sedated and intubated. HEENT: NC/AT; MMM. CV: RRR, regular rhythm LUNGS: CTAB, no w/r/c. ABD: Soft, NT/ND, NBS, no masses or organomegaly. EXT: skin Warm, well perfused. no rashes. No clubbing, cyanosis, or edema. Right toe wrapped in gauze, chronic ulcer, checked the wounds in the sacrum and the toe unremarkable. NEURO: Sedated and intubated. Problem List/Assessment/Plan Problem List/Assessment/Plan Mr. Velazquez is a 39-year-old male with a complex medical history including insulin-dependent diabetes mellitus, GERD, bipolar disorder, schizophrenia, chronic diabetic ulcers, dyslipidemia, MRSA urinary infection, BPH, and methamphetamine abuse presented to [facility] 10/[facility]2024 with generalized weakness, fever, and abdominal discomfort. He was intubated and chemically sedated for sepsis and persistent MRSA bacteremia, requiring low-dose vasopressor support. Imaging revealed a pelvic abscess and urinalysis suggested a UTI. Despite treatment, blood cultures remained positive for MRSA through 10/09. Cardiology was consulted for possible subacute endocarditis, with plans for TIM pending improvement in mental status. ECG showed sinus tachycardia, inflammatory markers were elevated, and infectious workup for HIV, hepatitis B/C, and syphilis was negative. Recurrent MRSA bacteremia with infective endocarditis with most likely source of intrapelvic collection with foci of air at the left psoas muscle with erosive changes at the left anterior sacroiliac joint concerning for acute osteomyelitis/septic arthritis with left psoas muscle abscess. Status post ceftriaxone, linezolid, metronidazole, vancomycin, was change to daptomycin and ceftaroline on respectively 10/12/2024 and 10/13/2024. Assessment: #Persistent bacteremia with subacute endocarditis TIM found MR with 0.8 cm vegetations. #CVA, left MCA territory, possible infectious cardioembolic source: MRI reveals a large area of restricted diffusion in the left posterior temporal and parietal lobes, along with small punctate infarcts in the right posterior frontal to parietal lobes, suggesting a pattern consistent with an embolic phenomenon noted on MRI. #Erosive changes at the left anterior sacroiliac joint concerning for acute osteomyelitis/septic arthritis with #Left psoas muscle abscess. #Small to moderate amount of ascites. #Small to moderate left and small right pleural effusions. #Cephalic vein thrombus; ? infectious thromboembolism #Meningitis? Possible, HSV encephalitis possible?, unable to rule out vs thromboembolic stroke. #Abdomen-pelvic abscess: Evidence of left sacroiliitis with gas and fluid extending into left pelvic muscles likely representing abscess #UTI due to possible hematogenous seeding of bacteremia #MRSA Aspiration Pneumonia, Trace bilateral pleural effusions with adjacent atelectasis and patchy posterior bibasilar pulmonary infiltrate with MRSA #Methamphetamine abuse, unknown status of IV drug abuse #Mild aortic root enlargement. Mild TR, No pericardial effusion masses or vegetations noted on TTE #Uncontrolled DM with HbA1C 13.2 #STD panel ruled out. Plan: #Discontinue micafungin. #Continue Daptomycin (Day 8) with Ceftaroline (Day 7) for appropriate coverage intracerebral and extracerebral bacteremia as the risk of further intracerebral infection remains high. #Repeat blood cultures today with weekly CK for determining further fate of antibiotics #Agree to the pelvic MRI with and without contrast to evaluate the left psoas muscle and erosive changes to the left anterior sacroiliac joint along with the MRI of lumbar spine. #Consult Dr. Cain for incision drainage of collection as primary importance for source control, close follow up with Orthopedics for additional surgical management. #Daily 12 lead EKG to look for CA prolongation >200 ms for higher risk of intracardiac abscess, an absolute surgical emergency. #Continue ICU level care with close follow up by Primary Team. Discussed with Dr. Solano. Infectious disease team will follow up. The patient remains overall very sick with multiorgan failure, guarded prognosis. Plan discussed with: Patient, Other (Primary Team) Dietary Evaluation Review Comments: 1) Add cardiac restriction to 60g CCHO diet 2) Initiate Glucerna qd. Encourage optimal PO intake 3) Follow-up with urology and surgery 4) Follow-up with social service technician r/t methamphetamine abuse 5) Continue to monitor I&O, labs, and skin integrity Expected Outcomes/Goals: 1) appetite and labs to improve 2) wound to improve 3) f/u in 3-5 days ADAM MARTINO RESIDENT Oct 20, 2024 15:11
--- NOTE | 2024-10-20 18:09 | DVHPNRES ---
Progress Note Date Seen: Oct 20, 2024 Resident Creating Document: GAURI IGNACIO RESIDENT Medical Necessity Reason Pt with a Central, PICC or Fol: No Subjective Review of Systems Patient is a 39-year-old male with past medical history of diabetes mellitus, MRSA of the urine, hyperlipidemia, and methamphetamine abuse presented to [facility] ED with complaint of fever. Patient reports he has been experiencing fever, associated with generalized weakness, abdominal pain, presents with Kan catheter in place due to recent prostate surgery. Patient was seen and evaluated in the ED, laboratory data shows WBC 6.1, hemoglobin 9.5, hematocrit 28.7, platelets 203, sodium 130, potassium 4.0, BUN 23, creatinine 1.12, glucose 382, calcium 8.5, albumin 3.1, blood pressure 110/70, heart rate 136 trending down to 96, temperature 103.2 F trending down to 97.6 F, O2 saturation 95% on room air. Abdomen/pelvis CT revealing evidence of left sacroiliitis with gas and fluid extending into left pelvic muscles likely representing abscess; rectal wall thickening correlate for symptoms of proctitis; Kan catheter decompressed urinary bladder with wall thickening; hypodense appearance of the mildly enlarged prostate, cystitis and prostatitis or possible. Patient was started on IV antibiotic regimen vancomycin, Patient was seen and examined in the ICU on the bedside. He is on mechanical ventilation with FiO2 30%, peep 5, tidal volume 500 mL, respiratory rate 20. Patient had an TIM on 10/14/24 and found mitral valve vegetation with normal ejection fraction. s/p debridement of right foot ulcer. MRI of the head without contrast demonstrated large area of diffusion restriction of the left posterior temporal lobe and left parietal lobe, small area of punctate infarction along the right posterior frontal lobe to parietal lobe and imaging pattern may be compatible with embolic phenomenon. CT abdomen pelvis on 0 01/29 showed foci of air and the left psoas muscle with erosive changes of the left SI joint, osteomyelitis/ septic arthritis and left psoas sepsis. orthopedics Dr. Hoffman recommended spinal surgery consult and, MRI of the LS spine for possible I and D. pending MRI of lumbosacral spine. Objective vital signs Vital Sign Date Time Temp Pulse Resp B/P (MAP) Pulse Ox O2 Delivery O2 Flow Rate FiO2 10/20/24 18:04 118/78 10/20/24 16:21 87 10/20/24 16:01 24 95 30 10/20/24 09:00 Mechanical Ventilator+ 10/20/24 04:00 98.4 98.4 Total Intake and Output 10/19/24 10/19/24 10/20/24 15:00 23:00 07:00 Intake Total 1132.0 ml 2032.5 ml 1640.0 ml Output Total 1150 ml 600 ml 2200 ml Balance -18.0 ml 1432.5 ml -560.0 ml medications Current Medications Medications Dose Ordered Sig/Dion Route Start Time Stop Time Status Last Admin Dose Admin Acetaminophen 650 mg Q6HP PRN [place] 10/10/24 10:00 10/10/24 15:18 650 MG Midazolam HCl 50 ml @ 1 mls/hr Q24H IV 10/10/24 17:15 10/20/24 11:01 6 MLS/HR Fentanyl Citrate 250 ml @ 2.5 mls/hr Q24H IV 10/10/24 17:15 10/20/24 18:04 22.5 MLS/HR Propofol 100 ml @ 2.496 mls/ hr Q24H IV 10/10/24 17:15 Norepinephrine Bitartrate 250 ml @ 3.75 mls/hr Q24H IV 10/10/24 17:45 10/15/24 04:04 3.75 MLS/HR Diagnostic Test (Pha) 1 strip Q6HR 10/11/24 00:00 10/20/24 17:39 1 STRIP Insulin Human Regular FOLLOW SLIDING SCALE Q6HR SC 10/11/24 00:00 10/20/24 17:48 2 UNITS Dextrose 50 ml UD IV 10/10/24 22:00 Amino Acids 0 ml @ 0 mls/hr PER PHARMACY IV 10/10/24 19:00 UNV Enteral Nutritional Formula 1,000 ml 40ML/HR GT 10/10/24 21:15 10/18/24 05:44 1,000 ML Daptomycin 750 mg/ Sodium Chloride 50 ml @ 100 mls/hr DAILY IV 10/14/24 10:00 10/20/24 09:10 100 MLS/HR Bumetanide 12.5 mg/Miscellaneous 50 ml @ 4 mls/hr [id number] IV 10/15/24 13:00 10/20/24 10:22 4 MLS/HR Micafungin Sodium 100 mg/Sodium Chloride 100 ml @ 100 mls/hr DAILY IV 10/16/24 10:00 10/20/24 10:33 100 MLS/HR Lactulose 30 ml Q6HR PO 10/16/24 08:15 10/20/24 17:37 30 ML Polyethylene Glycol 17 gm DAILYPRN PRN PO 10/16/24 08:15 Pantoprazole Sodium 40 mg BID IV 10/16/24 08:30 10/20/24 09:10 40 MG Ceftaroline Fosamil 600 mg/ Sodium Chloride 250 ml @ 250 mls/hr Q8H IV 10/19/24 18:00 10/20/24 13:25 250 MLS/HR Examination Examination General: RASS -3, afebrile, mucosae are moist Cardiovascular: Normal S1 and S2. No murmurs, gallops or rubs Respiratory: Mechanically assisted ventilation, equal bilateral airway entree. Clear lung sounds on auscultation Abdomen: Soft, nontender, no organomegaly, sluggish bowel sounds MSK/skin: Mobilization of limbs cannot be evaluated. Skin is dry and warm. bilateral pedal edema +, S/P rt toe debridement and covered with dressing. Neurological: Orientation cannot be assessed. No apparent motor no sensitive deficits. Pupils are isocoric and reactive laboratory and microbiology Laboratory Tests 10/20/24 03:30 Test 10/20/24 03:30 Range/Units Serum Glucose 129 H 74-106 mg/dL Microbiology Date/Time Source Procedure Growth Status 10/16/24 17:40 Catheter Tip Aerobic Culture - Preliminary Resulted 10/16/24 09:39 Penis Aerobic Culture - Final Methicillin Resistant S.aureus Presumptive Hellen tropicalis Complete 10/16/24 02:35 Blood Blood Culture - Preliminary NO GROWTH AFTER 72 HOURS OF INCUBATION. Resulted 10/14/24 22:10 Voided Urine Urine Culture - Final Presumptive Hellen tropicalis Complete 10/10/24 16:45 Sputum Expectorated Sputum Gram Stain - Final Complete 10/10/24 16:45 Sputum Expectorated Sputum Respiratory Culture - Final Complete Labs and/or images reviewed: Labs reviewed by me, Image(s) reviewed by me Problem List/Assessment/Plan Problem List/Assessment/Plan Assessment and plan: NEURO: Acute metabolic encephalopathy secondary to ischemic stroke Possible septic emboli due to persistent MRSA bacteremia History of Bipolar disorder RASS score: -3 - CT head without contrast demonstrated acute left MCA stroke - MRI of the head without contrast demonstrated large area of diffusion restriction of the left posterior temporal lobe and left parietal lobe, small area of punctate infarction along the right posterior frontal lobe to parietal lobe and imaging pattern may be compatible with embolic phenomenon. - continue aspirin 81 mg and Plavix 75 mg daily CARDIOVASCULAR: Acute infective endocarditis of mitral valve Possible chronic diastolic heart failure with preserved ejection fraction - TIM on 10/14/2024 demonstrated mitral valve, structurally normal, anterior leaflet has a 0.8 cm vegetation with a stalk. 0.8 X 0.4 cm, no significant MR or abscess is noted - TTE revealed EF 45-50%, anteroseptal hypokinesis, biatrial enlargement - Infectious disease on board - Continue IV ceftaroline and daptomycin PULMONARY: Rt sided opacity due to possible mucus plug/volume overload GASTROENTEROLOGY: Ruled out ileus Moderate to Severe colonic volume of stool - lactulose 30 mL q6 hr through G-tube daily - Miralax powder daily GENITOURINARY: JAYLEEN secondary to vancomycin toxicity Possible prostatic abscess, history of recent prostate surgery Acute complicated cystitis - CT abdomen pelvis on 12/30 showed foci of air and the left psoas muscle with erosive changes of the left SI joint, osteomyelitis/ septic arthritis and left psoas abscess - pending MRI of the pelvis - IV Bumex drip - Continue IV ceftaroline and daptomycin ENDOCRINE: Type 2 diabetes mellitus, hemoglobin A1c 13.2 Diabetic foot ulcer of right toe - CT right foot without contrast showed erosive changes involved proximal and distal phalanx with involvement of IP joint, possible osteomyelitis/septic arthritis, deep 1st digit plantar ulceration - S/P I &D of rt foot - sliding scale of insulin METABOLIC: Moderate Protein calorie malnutrition, albumin 2.1 Hyperphosphatemia secondary to JAYLEEN Hypomagnesemia Metabolic acidosis due to JAYLEEN HEME: Acute on Chronic normocytic anemia secondary to dilutional versus anticoagulant use - 1 unit PRBC given - Hold DVT prophylaxis - Monitor H&H INFECTIOUS DISEASE: 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 Diabetic foot ulcer of right great toe Possible Prostatic abscess Acute Complicated cystitis Acute proctitis - Blood culture on 10/16/2024 preliminary report demonstrated no growth in 24 hours of incubation - recent penile culture and right foot culture demonstrated MRSA, Enterococcus faecalis - Continue IV ceftaroline and daptomycin - CT abdomen pelvis without contrast on 10/16/2024 showed foci of air at the left psoas muscle with erosive changes at the left anterior sacroiliac joint. Findings are concerning for acute osteomyelitis/septic arthritis with left psoas muscle abscess - Pending MRI of lumbosacral spine DIET: Tube feeding DVT prophylax: SCD GI prophylaxis: Protonix Bowel regimen: Lactulose Code status: Full code LINES/DRAINS/ACCESS: ETT: Intubated on 10/10/2024 IV access: Left IJ placed on 10/16/24 Drips: Versed, fentanyl Kan catheter: Placed on 10/02/2024 DISPOSITION: ICU Patient's status discussed with narinder, urgent care time spent more than 82 minutes, including patient care, chart review, and updating the family and including dw consultants. Excluding any procedures. Plan discussed with Dr. Galeano Plan discussed with: Other (Narinder, RN) My Orders My Orders Orders - GAURI IGNACIO Procedure Category Date Status Time Chest Portable XY 10/20/24 Resulted 04:00 Abg W/ Co-Ox RT 10/20/24 Logged 05:00 Dietary Evaluation Review Comments: 1) Add cardiac restriction to 60g CCHO diet 2) Initiate Glucerna qd. Encourage optimal PO intake 3) Follow-up with urology and surgery 4) Follow-up with delinquency prevention social worker r/t methamphetamine abuse 5) Continue to monitor I&O, labs, and skin integrity Expected Outcomes/Goals: 1) appetite and labs to improve 2) wound to improve 3) f/u in 3-5 days Date of Service: Oct 20, 2024 Billing Provider: DEE DEE GALEANO MD Common Visit Codes: 68284-GFONPXQI CARE 30-74 MIN, 18232-[id number] CARE-EACH +30MIN GAURI IGNACIO Oct 20, 2024 18:09 DEE DEE GALEANO MD Oct 21, 2024 14:17
[2024-10-20] MEDS: POLYETHYLENE GLYCOL 17 GM PWDR PO PRN (18:19)
--- NOTE | 2024-10-20 18:36 | DVHPN2 ---
Progress Note Date Seen: Oct 20, 2024 Medical Necessity Reason Pt with a Central, PICC or Fol: No Subjective Patient reports: Other (intubated) Review of Systems: Deferred Objective vital signs Vital Sign Date Time Temp Pulse Resp B/P (MAP) Pulse Ox O2 Delivery O2 Flow Rate FiO2 10/20/24 18:19 130/82 10/20/24 18:14 82 24 96 30 10/20/24 09:00 Mechanical Ventilator+ 10/20/24 04:00 98.4 98.4 Total Intake and Output 10/19/24 10/19/24 10/20/24 15:00 23:00 07:00 Intake Total 1132.0 ml 2032.5 ml 1640.0 ml Output Total 1150 ml 600 ml 2200 ml Balance -18.0 ml 1432.5 ml -560.0 ml medications Current Medications Medications Dose Ordered Sig/Dion Route Start Time Stop Time Status Last Admin Dose Admin Acetaminophen 650 mg Q6HP PRN NM 10/10/24 10:00 10/10/24 15:18 650 MG Midazolam HCl 50 ml @ 1 mls/hr Q24H IV 10/10/24 17:15 10/20/24 18:19 6 MLS/HR Fentanyl Citrate 250 ml @ 2.5 mls/hr Q24H IV 10/10/24 17:15 10/20/24 18:04 22.5 MLS/HR Propofol 100 ml @ 2.496 mls/ hr Q24H IV 10/10/24 17:15 Norepinephrine Bitartrate 250 ml @ 3.75 mls/hr Q24H IV 10/10/24 17:45 10/15/24 04:04 3.75 MLS/HR Diagnostic Test (Pha) 1 strip Q6HR 10/11/24 00:00 10/20/24 17:39 1 STRIP Insulin Human Regular FOLLOW SLIDING SCALE Q6HR SC 10/11/24 00:00 10/20/24 17:48 2 UNITS Dextrose 50 ml UD IV 10/10/24 22:00 Amino Acids 0 ml @ 0 mls/hr PER PHARMACY IV 10/10/24 19:00 UNV Enteral Nutritional Formula 1,000 ml 40ML/HR GT 10/10/24 21:15 10/18/24 05:44 1,000 ML Daptomycin 750 mg/ Sodium Chloride 50 ml @ 100 mls/hr DAILY IV 10/14/24 10:00 10/20/24 09:10 100 MLS/HR Bumetanide 12.5 mg/Miscellaneous 50 ml @ 4 mls/hr [id number] IV 10/15/24 13:00 10/20/24 10:22 4 MLS/HR Lactulose 30 ml Q6HR PO 10/16/24 08:15 10/20/24 17:37 30 ML Polyethylene Glycol 17 gm DAILYPRN PRN PO 10/16/24 08:15 10/20/24 18:19 17 GM Pantoprazole Sodium 40 mg BID IV 10/16/24 08:30 10/20/24 09:10 40 MG Ceftaroline Fosamil 600 mg/ Sodium Chloride 250 ml @ 250 mls/hr Q8H IV 10/19/24 18:00 10/20/24 13:25 250 MLS/HR Examination: GENERAL:Abnormal, LUNGS:Abnormal, MSK:Abnormal, NEURO:Abnormal laboratory and microbiology Laboratory Tests 10/20/24 03:30 Test 10/20/24 03:30 Range/Units Serum Glucose 129 H 74-106 mg/dL Microbiology Date/Time Source Procedure Growth Status 10/16/24 17:40 Catheter Tip Aerobic Culture - Preliminary Resulted 10/16/24 09:39 Penis Aerobic Culture - Final Methicillin Resistant S.aureus Presumptive Hellen tropicalis Complete 10/16/24 02:35 Blood Blood Culture - Preliminary NO GROWTH AFTER 72 HOURS OF INCUBATION. Resulted 10/14/24 22:10 Voided Urine Urine Culture - Final Presumptive Hellen tropicalis Complete 10/10/24 16:45 Sputum Expectorated Sputum Gram Stain - Final Complete 10/10/24 16:45 Sputum Expectorated Sputum Respiratory Culture - Final Complete Problem List/Assessment/Plan Problem List/Assessment/Plan Acute kidney injury multifactorial hemodynamically mediated, FeNa < 1% Acute respiratory failure, patient intubated on ventilator Vancomycin nephrotoxicity Septic shock Acute CVA MRSA bacteremia Bacterial endocarditis Lower extremity MRSA wound infection BPH status post TURP with indwelling Kan catheter d History of methamphetamine abuse Hypoalbuminemia Metabolic acidosis Hypernatremia due to insensible water loss recs dc ivf Patient has significant edema scrotal edema continue diuretics Antibiotics renally dosed to GFR We will follow closely Plan discussed with: Other Dietary Evaluation Review Comments: 1) Add cardiac restriction to 60g CCHO diet 2) Initiate Glucerna qd. Encourage optimal PO intake 3) Follow-up with urology and surgery 4) Follow-up with medical social worker r/t methamphetamine abuse 5) Continue to monitor I&O, labs, and skin integrity Expected Outcomes/Goals: 1) appetite and labs to improve 2) wound to improve 3) f/u in 3-5 days Critical Care Time (mins): 38 XUAN MATTHEWS MD Oct 20, 2024 18:36
[2024-10-21] VITALS (106 sets, daily range): BP systolic 116–136; BP diastolic 70–95; PULSE 75–91; RESP 10–31; TEMP 98.4–99.1; O2SAT 96–99
[2024-10-21 03:48] LABS: Hematocrit 24.7 % (41.0-53.0); Hemoglobin 8.4 g/dL (13.5-17.5); Mean Corpuscular Hemoglobin 27.9 pg (28.0-32.0); Mean Corpuscular Volume 81.6 fL (80.0-100.0); Nucleated Red Blood Cells % 0.1 %
[2024-10-21 03:52] LABS: Anion Gap 10 (5-15); Carbon Dioxide 29 mmol/L (20-31); Chloride 104 mmol/L (98-107); Sodium 143 mmol/L (136-145)
[2024-10-21 03:58] LABS: BUN/Creatinine Ratio 17.5 (10.0-20.0)
[2024-10-21 03:59] LABS: Magnesium 1.7 mg/dL (1.6-2.6)
[2024-10-21 04:01] LABS: Blood Urea Nitrogen 33 mg/dL (9-23); Calcium 7.6 mg/dL (8.7-10.4); Glucose 144 mg/dL (74-106); Potassium 3.5 mmol/L (3.5-5.1)
[2024-10-21] MEDS: POTASSIUM CHL 20MEQ/100ML 100 ML IV ONE (04:50)
--- NOTE | 2024-10-21 05:53 | DVH ---
CHEST RADIOGRAPH Indication: Mechanical ventilation Technique: Single frontal view of the chest was obtained Comparison: XY CHEST PORTABLE on DOS: 10/20/24 FINDINGS: Lines and Tubes: The endotracheal tube terminates 7.4 cm above the gallo. The enteric tube courses b elow the left hemidiaphragm and the tip extends outside the field of view. Left central venous cathet er terminates in the superior vena cava. Lungs: Bibasilar airspace disease. Pleura: No effusion. No pneumothorax. Cardiomediastinal contours: Stable. Bones: No acute osseous abnormality. IMPRESSION: 1. Support tubes in appropriate position. 2. Bibasilar airspace disease similar to prior study.
[2024-10-21 07:31] LABS: Base Excess 5.6 mmol/L (-2.0-3.0)
--- NOTE | 2024-10-21 08:01 | ECG ---
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
[2024-10-21] MEDS: LACTULOSE 20Gm/30ML SOLN PO SCH (08:30)
--- NOTE | 2024-10-21 09:13 | DVHPN2 ---
Consult Progress Note Date Seen: Oct 21, 2024 Subjective Other Systems: The patient remains in the ICU intubated, sedated with minimal vent settings, no further fever, patient is continued on fentanyl and Versed off of now of vasopressors on IV drip of bumetanide. Objective vital signs Vital Sign Date Time Temp Pulse Resp B/P (MAP) Pulse Ox O2 Delivery O2 Flow Rate FiO2 10/21/24 07:40 79 24 124/81 (95) 98 30 10/21/24 06:00 Mechanical Ventilator+ 10/21/24 04:00 98.9 98.9 Total Intake and Output 10/20/24 10/20/24 10/21/24 15:00 23:00 07:00 Intake Total 1020.0 ml 1203.5 ml 1178 ml Output Total 0 ml 1100 ml 2376 ml Balance 1020.0 ml 103.5 ml -1198 ml GEN: Patent sedated and intubated. HEENT: NC/AT; MMM. CV: RRR, regular rhythm LUNGS: CTAB, no w/r/c. ABD: Soft, NT/ND, NBS, no masses or organomegaly. EXT: skin Warm, well perfused. no rashes. No clubbing, cyanosis, or edema. Right toe wrapped in gauze, chronic ulcer, checked the wounds in the sacrum and the toe unremarkable. NEURO: Sedated and intubated. medications Current Medications Medications Dose Ordered Sig/Dion Route Start Time Stop Time Status Last Admin Dose Admin Acetaminophen 650 mg Q6HP PRN OR 10/10/24 10:00 10/10/24 15:18 650 MG Midazolam HCl 50 ml @ 1 mls/hr Q24H IV 10/10/24 17:15 10/21/24 04:51 7 MLS/HR Fentanyl Citrate 250 ml @ 2.5 mls/hr Q24H IV 10/10/24 17:15 10/21/24 03:16 25 MLS/HR Propofol 100 ml @ 2.496 mls/ hr Q24H IV 10/10/24 17:15 Norepinephrine Bitartrate 250 ml @ 3.75 mls/hr Q24H IV 10/10/24 17:45 10/15/24 04:04 3.75 MLS/HR Diagnostic Test (Pha) 1 strip Q6HR 10/11/24 00:00 10/21/24 06:00 1 STRIP Insulin Human Regular FOLLOW SLIDING SCALE Q6HR SC 10/11/24 00:00 10/21/24 05:56 2 UNITS Dextrose 50 ml UD IV 10/10/24 22:00 Amino Acids 0 ml @ 0 mls/hr PER PHARMACY IV 10/10/24 19:00 UNV Enteral Nutritional Formula 1,000 ml 40ML/HR GT 10/10/24 21:15 10/18/24 05:44 1,000 ML Daptomycin 750 mg/ Sodium Chloride 50 ml @ 100 mls/hr DAILY IV 10/14/24 10:00 10/20/24 09:10 100 MLS/HR Bumetanide 12.5 mg/Miscellaneous 50 ml @ 4 mls/hr [id number] IV 10/15/24 13:00 10/20/24 20:00 4 MLS/HR Polyethylene Glycol 17 gm DAILYPRN PRN PO 10/16/24 08:15 10/20/24 18:19 17 GM Ceftaroline Fosamil 600 mg/ Sodium Chloride 250 ml @ 250 mls/hr Q8H IV 10/19/24 18:00 10/21/24 01:33 250 MLS/HR Lactulose 30 ml DAILY PO 10/21/24 08:30 Pantoprazole Sodium 40 mg DAILY IV 10/21/24 08:30 laboratory and microbiology Laboratory Tests 10/21/24 03:00 Test 10/21/24 03:00 Range/Units Serum Glucose 144 H 74-106 mg/dL Problem List/Assessment/Plan Problem List/Assessment/Plan Mr. Velazquez is a 39-year-old male with a complex medical history including insulin-dependent diabetes mellitus, GERD, bipolar disorder, schizophrenia, chronic diabetic ulcers, dyslipidemia, MRSA urinary infection, BPH, and methamphetamine abuse presented to [facility] on 10/02/2024 with generalized weakness, fever, and abdominal discomfort. He was intubated and chemically sedated for sepsis and persistent MRSA bacteremia, requiring low-dose vasopressor support. Imaging revealed a pelvic abscess and urinalysis suggested a UTI. Despite treatment, blood cultures remained positive for MRSA through 10/09. Cardiology was consulted for possible subacute endocarditis, with plans for TIM pending improvement in mental status. ECG showed sinus tachycardia, inflammatory markers were elevated, and infectious workup for HIV, hepatitis B/C, and syphilis was negative. Recurrent MRSA bacteremia with infective endocarditis with most likely source of intrapelvic collection with foci of air at the left psoas muscle with erosive changes at the left anterior sacroiliac joint concerning for acute osteomyelitis/septic arthritis with left psoas muscle abscess. Status post ceftriaxone, linezolid, metronidazole, vancomycin, was change to daptomycin and ceftaroline on respectively 10/12/2024 and 10/13/2024. Assessment: #Persistent bacteremia with subacute endocarditis TIM found MR with 0.8 cm vegetations. #CVA, left MCA territory, possible infectious cardioembolic source: MRI reveals a large area of restricted diffusion in the left posterior temporal and parietal lobes, along with small punctate infarcts in the right posterior frontal to parietal lobes, suggesting a pattern consistent with an embolic phenomenon noted on MRI. #Erosive changes at the left anterior sacroiliac joint concerning for acute osteomyelitis/septic arthritis with #Left psoas muscle abscess. #Small to moderate amount of ascites. #Small to moderate left and small right pleural effusions. #Cephalic vein thrombus; ? infectious thromboembolism #Meningitis? Possible, HSV encephalitis possible?, unable to rule out vs thromboembolic stroke. #Abdomen-pelvic abscess: Evidence of left sacroiliitis with gas and fluid extending into left pelvic muscles likely representing abscess #UTI due to possible hematogenous seeding of bacteremia #MRSA Aspiration Pneumonia, Trace bilateral pleural effusions with adjacent atelectasis and patchy posterior bibasilar pulmonary infiltrate with MRSA #Methamphetamine abuse, unknown status of IV drug abuse #Mild aortic root enlargement. Mild TR, No pericardial effusion masses or vegetations noted on TTE #Uncontrolled DM with HbA1C 13.2 #STD panel ruled out. Plan: #CK checked not elevated, Continue Daptomycin (Day 9) with Ceftaroline (Day 8) for appropriate coverage intracerebral and extracerebral bacteremia as the risk of further intracerebral infection remains high. #Repeat blood cultures from 10/20 to follow up to confirm clearance of bacteremia. #Agree to the pelvic MRI with and without contrast to evaluate the left psoas muscle and erosive changes to the left anterior sacroiliac joint along with the MRI of lumbar spine and Brain for disease severity assessment. #Consult Dr. Cain for incision drainage of collection as primary importance for source control, close follow up with Orthopedics for additional surgical management. #Daily 12 lead EKG to look for OR prolongation >200 ms for higher risk of intracardiac abscess, an absolute surgical emergency. #Continue ICU level care with close follow up by Primary Team. Discussed with Dr. Solano. Infectious disease team will follow up. The patient remains overall very sick with multiorgan failure, guarded prognosis. Plan discussed with: Other (primary team, mother and RN. ) Dietary Evaluation Review Comments: 1) Add cardiac restriction to 60g CCHO diet 2) Initiate Glucerna qd. Encourage optimal PO intake 3) Follow-up with urology and surgery 4) Follow-up with social media marketer r/t methamphetamine abuse 5) Continue to monitor I&O, labs, and skin integrity Expected Outcomes/Goals: 1) appetite and labs to improve 2) wound to improve 3) f/u in 3-5 days ADAM MARTINO RESIDENT Oct 21, 2024 09:13
--- NOTE | 2024-10-21 09:37 | DVHPN2 ---
Progress Note - Dictate Date Seen: Oct 21, 2024 Medical Necessity Reason Pt with a Central, PICC or Fol: No Subjective Mr. Velazquez is a 39 years old gentleman with a history of diabetes, GERD, bipolar disorder, schizophrenia, chronic diabetic ulcer, he was brought to the [facility] on 10/02[facility]2024 with a chief company of fever, the patient is also noticed to have altered mental status, in the CT brain scan showed evidence suggestive of left MCA territory acute stroke. Because of fever, worsening mental status, that is was intubated and transferred to ICU on 10/10/24 I have seen and examined the patient, talked to his nurse, he is intubated, sedated, responsive to light painful stimuli, possible to light touch as well. I have discussed with MRI center Versed 7 mg/hour, fentanyl 225 mcg/hour Blood culture, 10/02/2024: MRSA Blood culture, 10/03/2024: MRSA Blood culture, 10/04/2024: MRSA UDS, 10/03/2024: Amphetamine, 10/05/24: Negative Urinalysis, 10/02/2024: WBC: 30, urine leukocyte esterase: Trace WBC/HB/PLT/MCV, 10/06/2024: 5/8.7/130/82.4, 10/10/2024: 6.5/8.1/211/84.5, 10/11/2024: 6.1/7.5/176/85.9, 10/21/2024: 6/8.4/147/81.6 PTT/INR/eight six, 10/02/2024: 12.3/1.18/34.4 Na, 10/07/2024: 144 10/10/2024: 151, 10/11/2024: 148 CMP, 10/05/2024: Unremarkable BUN/CR, 10/10/2024: 22/0.96, 10/11/2024: 32/1.94 GFR, 10/10/2024: 102, 10/11/2024: 44 Liver function tests, 10/11/2024: Unremarkable HGB A1c, 05/10/2023: >14 TG/HDL/LDL/HDL, 10/07/2024: 153/87/39/9 TIM, 10/14/2024: Left Ventricle: Normal LV size and function, LVEF estimated at 60% Right Ventricle: NOrmal RV size and function Left atrium: normal Right atrium: normal RA Left atrial appendage: no thrombus noted, d Aortic valve: trileaflet valve, no severe or AI Mitral Valve: structurally normal, anterior leaflet has 0. 8 cm vegetation with stalk . 0.8 x 0.4 cm, no significant MR is noted however, no abscess noted Tricuspid Valve: mild tricuspid regurgitaiton, no TS Pulmonic Valve: structurally normal, no severe PIor PS Interatrial septum: negative color flow for R to L shunt, negative bubble study Ascending aorta: no severe plaquing Echocardiogram, 10/06/2024: Technically good study. Off axis views. Limited views obtained. There appears to be biatrial enlargement and LV enlargement. Mild aortic root enlargement. Valves appear to be structurally normal. Left ventricular function is borderline at 45 to 50% anteroseptal hypokinesis.. Normal RV function. Mild TR. No pericardial effusion masses or vegetations. CT head, 10/05/2024: Acute left MCA territory infarct in left insula/temporal operculum/temporal lobe. No hemorrhage or mass effect Sedated, 10/09/2024: 1. Interval progression in evolution of left middle cerebral artery territory infarct involving the insula / temporal are operculum/ temporal lobe with associated loss of khoury-white matter differentiation and progressively diminished parenchymal attenuation. 2. No evidence of intracranial hemorrhage, mass effect, midline shift or herniation. 3. Chronic sequelae of microangiopathy and atrophic cortical volume loss. CT abdomen/pelvis, 10/06/2024: 1. Trace bilateral pleural effusions with adjacent atelectasis and patchy posterior bibasilar pulmonary infiltrate. 2. Hepatomegaly. 3. Excess retained colorectal stool and moderate proximal mechanical small-bowel obstruction. 4. Moderate gas and Kan catheter within the urinary bladder CT abdomen/pelvis, 10/16/2024: Foci of air at the left psoas muscle with erosive changes at the left anterior sacroiliac joint. Findings are concerning for acute osteomyelitis/septic arthritis with left psoas muscle abscess. Evaluated on this study is extremely limited due to lack of IV contrast and artifact. Suggest MRI with and without IV contrast for further evaluation. If MRI cannot be performed, contrast enhanced CT is suggested. Small to moderate amount of ascites. Extensive body wall edema. Small to moderate left and small right pleural effusions. Diabetes mellitus. Constipation. CTA head, neck, 10/05/2024: 1. No evidence of acute intracranial hemorrhage, mass effect or hydrocephalus. 2. No evidence of hemodynamically significant intracranial stenosis, proximal occlusion or aneurysm. 3. No evidence of hemodynamically significant cervical stenosis or dissection MRI head, 10/15/2024: 1. Large area of diffusion restriction of the left posterior temporal lobe and left parietal lobe. 2. Small areas of punctate infarction along the right posterior frontal lobe to parietal lobe. 3. Imaging pattern may be compatible with embolic phenomenon vital signs Vital Sign Date Time Temp Pulse Resp B/P (MAP) Pulse Ox O2 Delivery O2 Flow Rate FiO2 10/21/24 07:40 79 24 124/81 (95) 98 30 10/21/24 06:00 Mechanical Ventilator+ 10/21/24 04:00 98.9 98.9 Total Intake and Output 10/20/24 10/20/24 10/21/24 15:00 23:00 07:00 Intake Total 1020.0 ml 1203.5 ml 1178 ml Output Total 0 ml 1100 ml 2376 ml Balance 1020.0 ml 103.5 ml -1198 ml medications Current Medications Medications Dose Ordered Sig/Dion Route Start Time Stop Time Status Last Admin Dose Admin Acetaminophen 650 mg Q6HP PRN ND 10/10/24 10:00 10/10/24 15:18 650 MG Midazolam HCl 50 ml @ 1 mls/hr Q24H IV 10/10/24 17:15 10/21/24 04:51 7 MLS/HR Fentanyl Citrate 250 ml @ 2.5 mls/hr Q24H IV 10/10/24 17:15 10/21/24 03:16 25 MLS/HR Propofol 100 ml @ 2.496 mls/ hr Q24H IV 10/10/24 17:15 Norepinephrine Bitartrate 250 ml @ 3.75 mls/hr Q24H IV 10/10/24 17:45 10/15/24 04:04 3.75 MLS/HR Diagnostic Test (Pha) 1 strip Q6HR 10/11/24 00:00 10/21/24 06:00 1 STRIP Insulin Human Regular FOLLOW SLIDING SCALE Q6HR SC 10/11/24 00:00 10/21/24 05:56 2 UNITS Dextrose 50 ml UD IV 10/10/24 22:00 Amino Acids 0 ml @ 0 mls/hr PER PHARMACY IV 10/10/24 19:00 UNV Enteral Nutritional Formula 1,000 ml 40ML/HR GT 10/10/24 21:15 10/18/24 05:44 1,000 ML Daptomycin 750 mg/ Sodium Chloride 50 ml @ 100 mls/hr DAILY IV 10/14/24 10:00 10/20/24 09:10 100 MLS/HR Bumetanide 12.5 mg/Miscellaneous 50 ml @ 4 mls/hr [id number] IV 10/15/24 13:00 10/20/24 20:00 4 MLS/HR Polyethylene Glycol 17 gm DAILYPRN PRN PO 10/16/24 08:15 10/20/24 18:19 17 GM Ceftaroline Fosamil 600 mg/ Sodium Chloride 250 ml @ 250 mls/hr Q8H IV 10/19/24 18:00 10/21/24 01:33 250 MLS/HR Lactulose 30 ml DAILY PO 10/21/24 08:30 Pantoprazole Sodium 40 mg DAILY IV 10/21/24 08:30 objective General: the patient is well developed and nourished. No acute distress. Intubated MUSCULOSKELETAL EXAM: Chronic ulcer in the right big toe, a small skin lesion in the left big toe MENTAL STATUS: Subjective SPEECH, LANGUAGE, HIGHER CORTICAL FUNCTION: Subjective CRANIAL NERVES: Pupils are equal, round and reactive. There is doll's eye, corneal reflexes. No sign of facial weakness. He has gag reflexes SENSATION: Responsive to stroke painful stimuli MOTOR: Muscle tone feels normal, no spontaneous extremity movement REFLEXES: Deep tendon reflexes feel symmetrical. No pathological reflexes. CEREBELLAR/COORDINATION: Deferred GAIT/STATION: deferred laboratory and microbiology Laboratory Tests 10/21/24 03:00 Test 10/21/24 03:00 Range/Units Serum Glucose 144 H 74-106 mg/dL Problem List Altered mental status, secondary to Acute stroke Metabolic encephalopathy Rule out intracranial infection Acute respiratory failure Acute stroke Sepsis with MRSA Chronic diabetic wound, status post debridement on 10/15/2024 Endocarditis Osteomyelitis Psoas abscess History of substance abuse Assessment/Plan Monitoring Supportive treatment ICU care Follow up blood tests MRI lumbar spine Stabilize vitals Respiratory support/vent management Aspirin 81 mg daily (on hold) D/C Lipitor 20 mg daily (LDL: 39) IV antibiotics Haldol p.r.n. for agitation DVT prophylaxis/Lovenox (on hold) Infectious disease on case Need to quit substance abuse Orthopedic on case More recommendation per clinical course This medical document was created using an electronic medical record system with [employer] dictation system. Although this document has been carefully reviewed, there may still be some phonetic and typographical errors. These areas are purely typographical due to imperfections of the software programs, and do not reflect any compromise in the patient's medical care. Prognosis poor Dietary Evaluation Review Comments: 1) Add cardiac restriction to 60g CCHO diet 2) Initiate Glucerna qd. Encourage optimal PO intake 3) Follow-up with urology and surgery 4) Follow-up with social media coordinator r/t methamphetamine abuse 5) Continue to monitor I&O, labs, and skin integrity Expected Outcomes/Goals: 1) appetite and labs to improve 2) wound to improve 3) f/u in 3-5 days Plan discussed with: Other CALEB PAYNE MD Oct 21, 2024 09:37
[2024-10-21] MEDS: PANTOPRAZOLE 40 MG/10 ML VIAL INJ IV SCH (10:00)
--- NOTE | 2024-10-21 15:07 | DVH ---
Bilateral Chest Sonogram Date: 10/21/2024 02:32 PM Clinical history: EVAL FOR THORACENTESIS Technique: Limited sonographic evaluation of the bilateral chest was performed to evaluate for pleur al effusion. Finding/Impression: Small bilateral pleural effusions.
--- NOTE | 2024-10-21 15:49 | DVHPN2 ---
Progress Note Date Seen: Oct 21, 2024 Resident Creating Document: NICOLETTE ROSADO RESIDENT Medical Necessity Reason Pt with a Central, PICC or Fol: No Subjective Review of Systems Patient seen and examined at bedside Remains intubated RR 24, tidal volume 500, FiO2 30%, peep of 5 On tube feedings, residuals today 150 cc Last BM today, brown in watery Running Bumex drip, Versed, fentanyl Objective vital signs Vital Sign Date Time Temp Pulse Resp B/P (MAP) Pulse Ox O2 Delivery O2 Flow Rate FiO2 10/21/24 13:45 125/80 10/21/24 13:33 76 24 97 30 10/21/24 12:00 98.4 98.4 10/21/24 12:00 Mechanical Ventilator+ Total Intake and Output 10/20/24 10/20/24 10/21/24 15:00 23:00 07:00 Intake Total 1020.0 ml 1203.5 ml 1178 ml Output Total 0 ml 1100 ml 2376 ml Balance 1020.0 ml 103.5 ml -1198 ml medications Current Medications Medications Dose Ordered Sig/Dion Route Start Time Stop Time Status Last Admin Dose Admin Acetaminophen 650 mg Q6HP PRN LA 10/10/24 10:00 10/10/24 15:18 650 MG Midazolam HCl 50 ml @ 1 mls/hr Q24H IV 10/10/24 17:15 10/21/24 12:30 7 MLS/HR Fentanyl Citrate 250 ml @ 2.5 mls/hr Q24H IV 10/10/24 17:15 10/21/24 13:45 25 MLS/HR Propofol 100 ml @ 2.496 mls/ hr Q24H IV 10/10/24 17:15 Norepinephrine Bitartrate 250 ml @ 3.75 mls/hr Q24H IV 10/10/24 17:45 10/15/24 04:04 3.75 MLS/HR Diagnostic Test (Pha) 1 strip Q6HR 10/11/24 00:00 10/21/24 12:30 1 STRIP Insulin Human Regular FOLLOW SLIDING SCALE Q6HR SC 10/11/24 00:00 10/21/24 13:00 4 UNITS Dextrose 50 ml UD IV 10/10/24 22:00 Amino Acids 0 ml @ 0 mls/hr PER PHARMACY IV 10/10/24 19:00 UNV Enteral Nutritional Formula 1,000 ml 40ML/HR GT 10/10/24 21:15 10/18/24 05:44 1,000 ML Daptomycin 750 mg/ Sodium Chloride 50 ml @ 100 mls/hr DAILY IV 10/14/24 10:00 10/21/24 10:06 100 MLS/HR Bumetanide 12.5 mg/Miscellaneous 50 ml @ 4 mls/hr [id number] IV 10/15/24 13:00 10/21/24 10:14 4 MLS/HR Ceftaroline Fosamil 600 mg/ Sodium Chloride 250 ml @ 250 mls/hr Q8H IV 10/19/24 18:00 10/21/24 10:07 250 MLS/HR Pantoprazole Sodium 40 mg DAILY IV 10/21/24 08:30 10/21/24 10:03 40 MG Examination General: RASS -3, afebrile, mucosae are moist Cardiovascular: Normal S1 and S2. No murmurs, gallops or rubs Respiratory: Mechanically assisted ventilation, equal bilateral airway entree. Clear lung sounds on auscultation Abdomen: Soft, nontender, no organomegaly, sluggish bowel sounds MSK/skin: Mobilization of limbs cannot be evaluated. Skin is dry and warm. bilateral pedal edema +, S/P rt toe debridement and covered with dressing. Neurological: Orientation cannot be assessed. No apparent motor no sensitive deficits. Pupils are isocoric and reactive laboratory and microbiology Laboratory Tests 10/21/24 03:00 Test 10/21/24 03:00 Range/Units Serum Glucose 144 H 74-106 mg/dL Microbiology Date/Time Source Procedure Growth Status 10/16/24 17:40 Catheter Tip Aerobic Culture - Final Complete 10/16/24 09:39 Penis Aerobic Culture - Final Methicillin Resistant S.aureus Presumptive Hellen tropicalis Complete 10/16/24 02:35 Blood Blood Culture - Final NO GROWTH AFTER 5 DAYS OF INCUBATION. Complete 10/14/24 22:10 Voided Urine Urine Culture - Final Presumptive Hellen tropicalis Complete 10/10/24 16:45 Sputum Expectorated Sputum Gram Stain - Final Complete 10/10/24 16:45 Sputum Expectorated Sputum Respiratory Culture - Final Complete Labs and/or images reviewed: Labs reviewed by me, Image(s) reviewed by me Problem List/Assessment/Plan Problem List/Assessment/Plan Anemia, possibly related to chronic disease with MCV 86.5 Proctitis MRSA bacteremia Septic emboli due to above Acute left MCA stroke Infective endocarditis with mitral valve vegetations Sepsis Ruled out ileus Constipation with moderate to severe colonic volume of stool Plan: Held lactulose owing to diarrhea Continue conservative management, observation Stool occult blood pending IV Protonix b.i.d. Already on lactulose Pending MRI lower extremity Orthopedic surgeon on board Continue antibiotics Thank you so much for the opportunity to consult on your patient. GI team will follow the patient. In case of any questions or concerns please feel free to reach out. Plan discussed with Dr. Saunders Plan discussed with: Other (RN) Dietary Evaluation Review Comments: 1) Add cardiac restriction to 60g CCHO diet 2) Initiate Glucerna qd. Encourage optimal PO intake 3) Follow-up with urology and surgery 4) Follow-up with social sciences lecturer r/t methamphetamine abuse 5) Continue to monitor I&O, labs, and skin integrity Expected Outcomes/Goals: 1) appetite and labs to improve 2) wound to improve 3) f/u in 3-5 days NICOLETTE ROSADO RESIDENT Oct 21, 2024 15:49
--- NOTE | 2024-10-21 16:31 | DVHPN2 ---
Progress Note Date Seen: Oct 21, 2024 Medical Necessity Reason Pt with a Central, PICC or Fol: No Subjective Patient reports: Other (intubated) Review of Systems: Deferred Objective vital signs Vital Sign Date Time Temp Pulse Resp B/P (MAP) Pulse Ox O2 Delivery O2 Flow Rate FiO2 10/21/24 16:15 83 20 132/78 (96) 96 10/21/24 16:00 Mechanical Ventilator+ 30 30 10/21/24 16:00 98.5 98.5 Total Intake and Output 10/20/24 10/20/24 10/21/24 15:00 23:00 07:00 Intake Total 1020.0 ml 1203.5 ml 1178 ml Output Total 0 ml 1100 ml 2376 ml Balance 1020.0 ml 103.5 ml -1198 ml medications Current Medications Medications Dose Ordered Sig/Dion Route Start Time Stop Time Status Last Admin Dose Admin Acetaminophen 650 mg Q6HP PRN SC 10/10/24 10:00 10/10/24 15:18 650 MG Midazolam HCl 50 ml @ 1 mls/hr Q24H IV 10/10/24 17:15 10/21/24 12:30 7 MLS/HR Fentanyl Citrate 250 ml @ 2.5 mls/hr Q24H IV 10/10/24 17:15 10/21/24 13:45 25 MLS/HR Propofol 100 ml @ 2.496 mls/ hr Q24H IV 10/10/24 17:15 Norepinephrine Bitartrate 250 ml @ 3.75 mls/hr Q24H IV 10/10/24 17:45 10/15/24 04:04 3.75 MLS/HR Diagnostic Test (Pha) 1 strip Q6HR 10/11/24 00:00 10/21/24 12:30 1 STRIP Insulin Human Regular FOLLOW SLIDING SCALE Q6HR SC 10/11/24 00:00 10/21/24 13:00 4 UNITS Dextrose 50 ml UD IV 10/10/24 22:00 Amino Acids 0 ml @ 0 mls/hr PER PHARMACY IV 10/10/24 19:00 UNV Enteral Nutritional Formula 1,000 ml 40ML/HR GT 10/10/24 21:15 10/18/24 05:44 1,000 ML Daptomycin 750 mg/ Sodium Chloride 50 ml @ 100 mls/hr DAILY IV 10/14/24 10:00 10/21/24 10:06 100 MLS/HR Bumetanide 12.5 mg/Miscellaneous 50 ml @ 4 mls/hr [id number] IV 10/15/24 13:00 10/21/24 10:14 4 MLS/HR Ceftaroline Fosamil 600 mg/ Sodium Chloride 250 ml @ 250 mls/hr Q8H IV 10/19/24 18:00 10/21/24 10:07 250 MLS/HR Pantoprazole Sodium 40 mg DAILY IV 10/21/24 08:30 10/21/24 10:03 40 MG Examination: GENERAL:Abnormal, MSK:Abnormal, NEURO:Abnormal, :Abnormal laboratory and microbiology Laboratory Tests 10/21/24 03:00 Test 10/21/24 03:00 Range/Units Serum Glucose 144 H 74-106 mg/dL Microbiology Date/Time Source Procedure Growth Status 10/16/24 17:40 Catheter Tip Aerobic Culture - Final Complete 10/16/24 09:39 Penis Aerobic Culture - Final Methicillin Resistant S.aureus Presumptive Hellen tropicalis Complete 10/16/24 02:35 Blood Blood Culture - Final NO GROWTH AFTER 5 DAYS OF INCUBATION. Complete 10/14/24 22:10 Voided Urine Urine Culture - Final Presumptive Hellen tropicalis Complete 10/10/24 16:45 Sputum Expectorated Sputum Gram Stain - Final Complete 10/10/24 16:45 Sputum Expectorated Sputum Respiratory Culture - Final Complete Problem List/Assessment/Plan Problem List/Assessment/Plan Acute kidney injury multifactorial hemodynamically mediated, FeNa < 1% Acute respiratory failure, patient intubated on ventilator Vancomycin nephrotoxicity Septic shock Acute CVA MRSA bacteremia Bacterial endocarditis Lower extremity MRSA wound infection BPH status post TURP with indwelling Kan catheter d History of methamphetamine abuse Hypoalbuminemia Metabolic acidosis Hypernatremia due to insensible water loss recs dc ivf Patient has significant edema scrotal edema continue diuretics-on bumex drip Antibiotics renally dosed to GFR We will follow closely Plan discussed with: Other Dietary Evaluation Review Comments: 1) Add cardiac restriction to 60g CCHO diet 2) Initiate Glucerna qd. Encourage optimal PO intake 3) Follow-up with urology and surgery 4) Follow-up with renal social worker r/t methamphetamine abuse 5) Continue to monitor I&O, labs, and skin integrity Expected Outcomes/Goals: 1) appetite and labs to improve 2) wound to improve 3) f/u in 3-5 days XUAN MATTHEWS MD Oct 21, 2024 16:31
--- NOTE | 2024-10-21 18:14 | DVHPNRES ---
Progress Note Date Seen: Oct 21, 2024 Resident Creating Document: GAURI IGNACIO RESIDENT Medical Necessity Reason Pt with a Central, PICC or Fol: No Subjective Review of Systems Patient is a 39-year-old male with past medical history of diabetes mellitus, MRSA of the urine, hyperlipidemia, and methamphetamine abuse presented to [facility] ED with complaint of fever. Patient reports he has been experiencing fever, associated with generalized weakness, abdominal pain, presents with Kan catheter in place due to recent prostate surgery. Patient was seen and evaluated in the ED, laboratory data shows WBC 6.1, hemoglobin 9.5, hematocrit 28.7, platelets 203, sodium 130, potassium 4.0, BUN 23, creatinine 1.12, glucose 382, calcium 8.5, albumin 3.1, blood pressure 110/70, heart rate 136 trending down to 96, temperature 103.2 F trending down to 97.6 F, O2 saturation 95% on room air. Abdomen/pelvis CT revealing evidence of left sacroiliitis with gas and fluid extending into left pelvic muscles likely representing abscess; rectal wall thickening correlate for symptoms of proctitis; Kan catheter decompressed urinary bladder with wall thickening; hypodense appearance of the mildly enlarged prostate, cystitis and prostatitis or possible. Patient was started on IV antibiotic regimen vancomycin, Patient was seen and examined in the ICU on the bedside. He is on mechanical ventilation with FiO2 30%, peep 5, tidal volume 500 mL, respiratory rate 20. Patient had an TIM on 10/14/24 and found mitral valve vegetation with normal ejection fraction. s/p debridement of right foot ulcer. MRI of the head without contrast demonstrated large area of diffusion restriction of the left posterior temporal lobe and left parietal lobe, small area of punctate infarction along the right posterior frontal lobe to parietal lobe and imaging pattern may be compatible with embolic phenomenon. CT abdomen pelvis on 0 01/29 showed foci of air and the left psoas muscle with erosive changes of the left SI joint, osteomyelitis/ septic arthritis and left psoas sepsis. orthopedics Dr. Hoffman recommended spinal surgery consult and, MRI of the LS spine for possible I and D. pending MRI of lumbosacral spine. Blood culture on 10/16/24 revealed no growth in 24 hrs of incubation. Consulted IR for Lt thoracentesis. CPAP trial tomorrow. Objective vital signs Vital Sign Date Time Temp Pulse Resp B/P (MAP) Pulse Ox O2 Delivery O2 Flow Rate FiO2 10/21/24 16:15 83 20 132/78 (96) 96 10/21/24 16:00 Mechanical Ventilator+ 30 30 10/21/24 16:00 98.5 98.5 Total Intake and Output 10/20/24 10/20/24 10/21/24 15:00 23:00 07:00 Intake Total 1020.0 ml 1203.5 ml 1178 ml Output Total 0 ml 1100 ml 2376 ml Balance 1020.0 ml 103.5 ml -1198 ml medications Current Medications Medications Dose Ordered Sig/Dion Route Start Time Stop Time Status Last Admin Dose Admin Acetaminophen 650 mg Q6HP PRN IN 10/10/24 10:00 10/10/24 15:18 650 MG Midazolam HCl 50 ml @ 1 mls/hr Q24H IV 10/10/24 17:15 10/21/24 12:30 7 MLS/HR Fentanyl Citrate 250 ml @ 2.5 mls/hr Q24H IV 10/10/24 17:15 10/21/24 13:45 25 MLS/HR Propofol 100 ml @ 2.496 mls/ hr Q24H IV 10/10/24 17:15 Norepinephrine Bitartrate 250 ml @ 3.75 mls/hr Q24H IV 10/10/24 17:45 10/15/24 04:04 3.75 MLS/HR Diagnostic Test (Pha) 1 strip Q6HR 10/11/24 00:00 10/21/24 12:30 1 STRIP Insulin Human Regular FOLLOW SLIDING SCALE Q6HR SC 10/11/24 00:00 10/21/24 13:00 4 UNITS Dextrose 50 ml UD IV 10/10/24 22:00 Amino Acids 0 ml @ 0 mls/hr PER PHARMACY IV 10/10/24 19:00 UNV Enteral Nutritional Formula 1,000 ml 40ML/HR GT 10/10/24 21:15 10/18/24 05:44 1,000 ML Daptomycin 750 mg/ Sodium Chloride 50 ml @ 100 mls/hr DAILY IV 10/14/24 10:00 10/21/24 10:06 100 MLS/HR Bumetanide 12.5 mg/Miscellaneous 50 ml @ 4 mls/hr [id number] IV 10/15/24 13:00 10/21/24 10:14 4 MLS/HR Ceftaroline Fosamil 600 mg/ Sodium Chloride 250 ml @ 250 mls/hr Q8H IV 10/19/24 18:00 10/21/24 17:26 250 MLS/HR Pantoprazole Sodium 40 mg DAILY IV 10/21/24 08:30 10/21/24 10:03 40 MG Examination Examination General: RASS -3, afebrile, mucosae are moist Cardiovascular: Normal S1 and S2. No murmurs, gallops or rubs Respiratory: Mechanically assisted ventilation, equal bilateral airway entree. Clear lung sounds on auscultation Abdomen: Soft, nontender, no organomegaly, sluggish bowel sounds MSK/skin: Mobilization of limbs cannot be evaluated. Skin is dry and warm. bilateral pedal edema +, S/P rt toe debridement and covered with dressing. Neurological: Orientation cannot be assessed. No apparent motor no sensitive deficits. Pupils are isocoric and reactive laboratory and microbiology Laboratory Tests 10/21/24 03:00 Test 10/21/24 03:00 Range/Units Serum Glucose 144 H 74-106 mg/dL Microbiology Date/Time Source Procedure Growth Status 10/20/24 16:30 Blood Blood Culture - Preliminary NO GROWTH AFTER 24 HOURS OF INCUBATION. Resulted 10/16/24 17:40 Catheter Tip Aerobic Culture - Final Complete 10/16/24 09:39 Penis Aerobic Culture - Final Methicillin Resistant S.aureus Presumptive Hellen tropicalis Complete 10/14/24 22:10 Voided Urine Urine Culture - Final Presumptive Hellen tropicalis Complete 10/10/24 16:45 Sputum Expectorated Sputum Gram Stain - Final Complete 10/10/24 16:45 Sputum Expectorated Sputum Respiratory Culture - Final Complete Labs and/or images reviewed: Labs reviewed by me, Image(s) reviewed by me Problem List/Assessment/Plan Problem List/Assessment/Plan Assessment and plan: NEURO: Acute metabolic encephalopathy secondary to ischemic stroke Possible septic emboli due to persistent MRSA bacteremia History of Bipolar disorder RASS score: -3 - CT head without contrast demonstrated acute left MCA stroke - MRI of the head without contrast demonstrated large area of diffusion restriction of the left posterior temporal lobe and left parietal lobe, small area of punctate infarction along the right posterior frontal lobe to parietal lobe and imaging pattern may be compatible with embolic phenomenon. - continue aspirin 81 mg and Plavix 75 mg daily CARDIOVASCULAR: Acute infective endocarditis of mitral valve Possible chronic diastolic heart failure with preserved ejection fraction - TIM on 10/14/2024 demonstrated mitral valve, structurally normal, anterior leaflet has a 0.8 cm vegetation with a stalk. 0.8 X 0.4 cm, no significant MR or abscess is noted - TTE revealed EF 45-50%, anteroseptal hypokinesis, biatrial enlargement - Infectious disease on board - Continue IV ceftaroline and daptomycin PULMONARY: Rt sided opacity due to possible mucus plug/volume overload Lt sided pleural effusion - Consulted IR for Lt thoracentesis. GASTROENTEROLOGY: Ruled out ileus Moderate to Severe colonic volume of stool Acute watery diarrhoea - Stop Lactulose and miralax. GENITOURINARY: JAYLEEN secondary to vancomycin toxicity Possible prostatic abscess, history of recent prostate surgery Acute complicated cystitis - CT abdomen pelvis on 12/30 showed foci of air and the left psoas muscle with erosive changes of the left SI joint, osteomyelitis/ septic arthritis and left psoas abscess - pending MRI of the pelvis - IV Bumex drip - Continue IV ceftaroline and daptomycin ENDOCRINE: Type 2 diabetes mellitus, hemoglobin A1c 13.2 Diabetic foot ulcer of right toe - CT right foot without contrast showed erosive changes involved proximal and distal phalanx with involvement of IP joint, possible osteomyelitis/septic arthritis, deep 1st digit plantar ulceration - S/P I &D of rt foot - sliding scale of insulin METABOLIC: Moderate Protein calorie malnutrition, albumin 2.1 Hyperphosphatemia secondary to JAYLEEN Hypomagnesemia Metabolic acidosis due to JAYLEEN HEME: Acute on Chronic normocytic anemia secondary to dilutional versus anticoagulant use - 1 unit PRBC given - Hold DVT prophylaxis - Monitor H&H INFECTIOUS DISEASE: 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 Diabetic foot ulcer of right great toe Possible Prostatic abscess Acute Complicated cystitis Acute proctitis - Blood culture on 10/16/2024 preliminary report demonstrated no growth in 24 hours of incubation - recent penile culture and right foot culture demonstrated MRSA, Enterococcus faecalis - Continue IV ceftaroline and daptomycin - CT abdomen pelvis without contrast on 10/16/2024 showed foci of air at the left psoas muscle with erosive changes at the left anterior sacroiliac joint. Findings are concerning for acute osteomyelitis/septic arthritis with left psoas muscle abscess - Pending MRI of lumbosacral spine DIET: Tube feeding DVT prophylax: SCD GI prophylaxis: Protonix Bowel regimen: Code status: Full code LINES/DRAINS/ACCESS: ETT: Intubated on 10/10/2024 IV access: Left IJ placed on 10/16/24 Drips: Versed, fentanyl Kan catheter: Placed on 10/02/2024 DISPOSITION: ICU Patient's status discussed with mom, child care assistant time spent more than 83 minutes, including patient care, chart review, and updating the family. Excluding any procedures. CPAP trial tomorrow. Plan discussed with Dr. Galeano Plan discussed with: Other (Mom, RN) My Orders My Orders Orders - GAURI IGNACIO Procedure Category Date Status Time Chest Portable XY 10/21/24 Resulted 04:00 Abg W/ Co-Ox RT 10/21/24 Logged 04:00 Pantoprazole PHA 10/21/24 In Process (Protonix) 08:30 Chest Ultrasound US 10/21/24 Resulted Dietary Evaluation Review Comments: 1) Add cardiac restriction to 60g CCHO diet 2) Initiate Glucerna qd. Encourage optimal PO intake 3) Follow-up with urology and surgery 4) Follow-up with social media designer r/t methamphetamine abuse 5) Continue to monitor I&O, labs, and skin integrity Expected Outcomes/Goals: 1) appetite and labs to improve 2) wound to improve 3) f/u in 3-5 days Date of Service: Oct 21, 2024 Billing Provider: DEE DEE GALEANO MD Common Visit Codes: 02858-[id number] CARE 30-74 MIN, [id number] CARE-EACH +30MIN GAURI IGNACIO Oct 21, 2024 18:14 DEE DEE GALEANO MD Oct 22, 2024 14:12
[2024-10-22] VITALS (111 sets, daily range): BP systolic 110–152; BP diastolic 67–94; PULSE 66–103; RESP 8–26; TEMP 98–98.5; O2SAT 94–100
[2024-10-22 04:08] LABS: Anion Gap 10 (5-15); Carbon Dioxide 30 mmol/L (20-31); Chloride 103 mmol/L (98-107); Sodium 143 mmol/L (136-145)
[2024-10-22 04:14] LABS: BUN/Creatinine Ratio 16.5 (10.0-20.0)
[2024-10-22 04:15] LABS: Magnesium 1.7 mg/dL (1.6-2.6)
[2024-10-22 04:16] LABS: Blood Urea Nitrogen 29 mg/dL (9-23); Calcium 7.6 mg/dL (8.7-10.4); Glucose 129 mg/dL (74-106); Potassium 3.4 mmol/L (3.5-5.1)
[2024-10-22 04:22] LABS: Hemoglobin 8.1 g/dL (13.5-17.5); Nucleated Red Blood Cells % 0.1 %
[2024-10-22 04:31] LABS: Hematocrit 23.6 % (41.0-53.0); Mean Corpuscular Hemoglobin 27.7 pg (28.0-32.0); Mean Corpuscular Volume 80.8 fL (80.0-100.0)
--- NOTE | 2024-10-22 05:37 | DVH ---
CHEST RADIOGRAPH Indication: Mechanical ventilation Technique: Single frontal view of the chest was obtained COMPARISON: XY CHEST PORTABLE on DOS: 10/21/24, XY CHEST PORTABLE on DOS: 10/20/24, XY CHEST PORTABLE o n DOS: 10/19/24, XY CHEST PORTABLE on DOS: 10/18/24, XY CHEST PORTABLE on DOS: 10/17/24 FINDINGS: Lines and Tubes: Slight interval retraction of the endotracheal tube such that the tip now projects a pproximately 8.5 cm above the level of the gallo. Remaining lines and tubes unchanged. Lungs: Stable appearing mild bibasilar pulmonary airspace disease. Pleura: No effusion. No pneumothorax. Cardiomediastinal contours: Unremarkable Bones: Unremarkable IMPRESSION: 1. Slight interval retraction of the endotracheal tube such that the tip now projects approximately 8 .5 cm above the level of the gallo. Remaining lines and tubes unchanged. 2. Stable mild bibasilar pulmonary airspace disease.
[2024-10-22] MEDS: POTASSIUM CHL 20MEQ/100ML 100 ML IV ONE (06:24)
[2024-10-22 07:52] LABS: Base Excess 6.9 mmol/L (-2.0-3.0)
[2024-10-22] MEDS: DEXMEDETOMIDINE HCL IN D5W 100 ML IV SCH (09:09)
[2024-10-22] MEDS: MAGNESIUM SULFATE 1GM/100ML 100 ML IV ONE (10:01)
[2024-10-22 11:16] LABS: Base Excess 5.7 mmol/L (-2.0-3.0)
--- NOTE | 2024-10-22 14:29 | DVHPN2 ---
Consult Progress Note Date Seen: Oct 22, 2024 Subjective Other Systems: The patient remains in the ICU intubated, sedated with minimal vent settings, no further fever, patient is continued on fentanyl and Versed off of now of vasopressors on IV drip of bumetanide. Objective vital signs Vital Sign Date Time Temp Pulse Resp B/P (MAP) Pulse Ox O2 Delivery O2 Flow Rate FiO2 10/22/24 13:20 76 26 120/73 97 10/22/24 12:02 30 10/22/24 08:00 Mechanical Ventilator+ 10/22/24 04:15 98.2 98.2 Total Intake and Output 10/21/24 10/21/24 10/22/24 15:00 23:00 07:00 Intake Total 628 ml 597 ml 634.5 ml Output Total 0 ml 2702 ml 3150 ml Balance 628 ml -2105 ml -2515.5 ml GEN: Patent sedated and intubated. HEENT: NC/AT; MMM. CV: RRR, regular rhythm LUNGS: CTAB, no w/r/c. ABD: Soft, NT/ND, NBS, no masses or organomegaly. EXT: skin Warm, well perfused. no rashes. No clubbing, cyanosis, or edema. Right toe wrapped in gauze, chronic ulcer, checked the wounds in the sacrum and the toe unremarkable. NEURO: Sedated and intubated. medications Current Medications Medications Dose Ordered Sig/Dion Route Start Time Stop Time Status Last Admin Dose Admin Acetaminophen 650 mg Q6HP PRN NH 10/10/24 10:00 10/10/24 15:18 650 MG Midazolam HCl 50 ml @ 1 mls/hr Q24H IV 10/10/24 17:15 10/22/24 01:58 6 MLS/HR Fentanyl Citrate 250 ml @ 2.5 mls/hr Q24H IV 10/10/24 17:15 10/22/24 13:50 25 MLS/HR Propofol 100 ml @ 2.496 mls/ hr Q24H IV 10/10/24 17:15 Norepinephrine Bitartrate 250 ml @ 3.75 mls/hr Q24H IV 10/10/24 17:45 10/15/24 04:04 3.75 MLS/HR Diagnostic Test (Pha) 1 strip Q6HR 10/11/24 00:00 10/22/24 05:31 1 STRIP Insulin Human Regular FOLLOW SLIDING SCALE Q6HR SC 10/11/24 00:00 10/22/24 13:49 4 UNITS Dextrose 50 ml UD IV 10/10/24 22:00 Amino Acids 0 ml @ 0 mls/hr PER PHARMACY IV 10/10/24 19:00 UNV Enteral Nutritional Formula 1,000 ml 40ML/HR GT 10/10/24 21:15 10/18/24 05:44 1,000 ML Daptomycin 750 mg/ Sodium Chloride 50 ml @ 100 mls/hr DAILY IV 10/14/24 10:00 10/22/24 10:10 100 MLS/HR Bumetanide 12.5 mg/Miscellaneous 50 ml @ 4 mls/hr [id number] IV 10/15/24 13:00 10/22/24 07:05 4 MLS/HR Ceftaroline Fosamil 600 mg/ Sodium Chloride 250 ml @ 250 mls/hr Q8H IV 10/19/24 18:00 10/22/24 10:14 250 MLS/HR Pantoprazole Sodium 40 mg DAILY IV 10/21/24 08:30 10/22/24 09:23 40 MG laboratory and microbiology Laboratory Tests 10/22/24 03:19 Test 10/22/24 03:19 Range/Units Serum Glucose 129 H 74-106 mg/dL Problem List/Assessment/Plan Problem List/Assessment/Plan Mr. Velazquez is a 39-year-old male with a complex medical history including insulin-dependent diabetes mellitus, GERD, bipolar disorder, schizophrenia, chronic diabetic ulcers, dyslipidemia, MRSA urinary infection, BPH, and methamphetamine abuse presented to [facility] on 10/02/2024 with generalized weakness, fever, and abdominal discomfort. He was intubated and chemically sedated for sepsis and persistent MRSA bacteremia, requiring low-dose vasopressor support. Imaging revealed a pelvic abscess and urinalysis suggested a UTI. Despite treatment, blood cultures remained positive for MRSA through 10/09. Cardiology was consulted for possible subacute endocarditis, with plans for TIM pending improvement in mental status. ECG showed sinus tachycardia, inflammatory markers were elevated, and infectious workup for HIV, hepatitis B/C, and syphilis was negative. Recurrent MRSA bacteremia with infective endocarditis with most likely source of intrapelvic collection with foci of air at the left psoas muscle with erosive changes at the left anterior sacroiliac joint concerning for acute osteomyelitis/septic arthritis with left psoas muscle abscess. Status post ceftriaxone, linezolid, metronidazole, vancomycin, was change to daptomycin and ceftaroline on respectively 10/12/2024 and 10/13/2024. Assessment: #Persistent bacteremia with subacute endocarditis TIM found MR with 0.8 cm vegetations. #CVA, left MCA territory, possible infectious cardioembolic source: MRI reveals a large area of restricted diffusion in the left posterior temporal and parietal lobes, along with small punctate infarcts in the right posterior frontal to parietal lobes, suggesting a pattern consistent with an embolic phenomenon noted on MRI. #Erosive changes at the left anterior sacroiliac joint concerning for acute osteomyelitis/septic arthritis with #Left psoas muscle abscess. #Small to moderate amount of ascites. #Small to moderate left and small right pleural effusions. #Cephalic vein thrombus; ? infectious thromboembolism #Meningitis? Possible, HSV encephalitis possible?, unable to rule out vs thromboembolic stroke. #Abdomen-pelvic abscess: Evidence of left sacroiliitis with gas and fluid extending into left pelvic muscles likely representing abscess #UTI due to possible hematogenous seeding of bacteremia #MRSA Aspiration Pneumonia, Trace bilateral pleural effusions with adjacent atelectasis and patchy posterior bibasilar pulmonary infiltrate with MRSA #Methamphetamine abuse, unknown status of IV drug abuse #Mild aortic root enlargement. Mild TR, No pericardial effusion masses or vegetations noted on TTE #Uncontrolled DM with HbA1C 13.2 #STD panel ruled out. Plan: #Reached out to MRI, looking for a quick resolution as further management is quite heavily dependent on the MRI. If patient's renal function improved might consider CT with contrast with cautions and appropriate hydration. #Continue Daptomycin (Day 10) with Ceftaroline (Day 9) for appropriate coverage intracerebral and extracerebral bacteremia as the risk of further intracerebral infection remains high. #10/16 cleared MRSA bacteremia, Repeat blood cultures from 10/20 to follow up to confirm clearance of bacteremia although management is dependent on source control, looking for further input from Surgical teams. #Agree to the pelvic MRI with and without contrast to evaluate the left psoas muscle and erosive changes to the left anterior sacroiliac joint along with the MRI of lumbar spine and Brain for disease severity assessment. #Consult Dr. Cain for incision drainage of collection as primary importance for source control, close follow up with Orthopedics for additional surgical management. #Daily 12 lead EKG to look for NH prolongation >200 ms for higher risk of intracardiac abscess, an absolute surgical emergency. #Continue ICU level care with close follow up by Primary Team. Discussed with Dr. Solano. Infectious disease team will follow up. The patient remains overall very sick with multiorgan failure, guarded prognosis. Plan discussed with: Other (primary team and RN) Dietary Evaluation Review Comments: 1) Add cardiac restriction to 60g CCHO diet 2) Initiate Glucerna qd. Encourage optimal PO intake 3) Follow-up with urology and surgery 4) Follow-up with social science research assistant r/t methamphetamine abuse 5) Continue to monitor I&O, labs, and skin integrity Expected Outcomes/Goals: 1) appetite and labs to improve 2) wound to improve 3) f/u in 3-5 days DION CELESTIN RESIDENT Oct 22, 2024 14:29 ADAM MARTINO RESIDENT Oct 22, 2024 18:54
--- NOTE | 2024-10-22 15:22 | DVHPN2 ---
Progress Note Date Seen: Oct 22, 2024 Resident Creating Document: NICOLETTE ROSADO RESIDENT Medical Necessity Reason Pt with a Central, PICC or Fol: No Subjective Review of Systems Patient seen and examined at beside last BM 10/21/24 x2, soft brown failed CPAP trial today increasingly agitated Objective vital signs Vital Sign Date Time Temp Pulse Resp B/P (MAP) Pulse Ox O2 Delivery O2 Flow Rate FiO2 10/22/24 14:30 71 20 125/72 (89) 98 10/22/24 14:15 30 10/22/24 14:00 Mechanical Ventilator+ 10/22/24 12:00 98.5 98.5 Total Intake and Output 10/21/24 10/21/24 10/22/24 15:00 23:00 07:00 Intake Total 628 ml 597 ml 634.5 ml Output Total 0 ml 2702 ml 3150 ml Balance 628 ml -2105 ml -2515.5 ml medications Current Medications Medications Dose Ordered Sig/Dion Route Start Time Stop Time Status Last Admin Dose Admin Acetaminophen 650 mg Q6HP PRN AL 10/10/24 10:00 10/10/24 15:18 650 MG Midazolam HCl 50 ml @ 1 mls/hr Q24H IV 10/10/24 17:15 10/22/24 01:58 6 MLS/HR Fentanyl Citrate 250 ml @ 2.5 mls/hr Q24H IV 10/10/24 17:15 10/22/24 13:50 25 MLS/HR Propofol 100 ml @ 2.496 mls/ hr Q24H IV 10/10/24 17:15 Norepinephrine Bitartrate 250 ml @ 3.75 mls/hr Q24H IV 10/10/24 17:45 10/15/24 04:04 3.75 MLS/HR Diagnostic Test (Pha) 1 strip Q6HR 10/11/24 00:00 10/22/24 05:31 1 STRIP Insulin Human Regular FOLLOW SLIDING SCALE Q6HR SC 10/11/24 00:00 10/22/24 13:49 4 UNITS Dextrose 50 ml UD IV 10/10/24 22:00 Amino Acids 0 ml @ 0 mls/hr PER PHARMACY IV 10/10/24 19:00 UNV Enteral Nutritional Formula 1,000 ml 40ML/HR GT 10/10/24 21:15 10/18/24 05:44 1,000 ML Daptomycin 750 mg/ Sodium Chloride 50 ml @ 100 mls/hr DAILY IV 10/14/24 10:00 10/22/24 10:10 100 MLS/HR Bumetanide 12.5 mg/Miscellaneous 50 ml @ 4 mls/hr [id number] IV 10/15/24 13:00 10/22/24 07:05 4 MLS/HR Ceftaroline Fosamil 600 mg/ Sodium Chloride 250 ml @ 250 mls/hr Q8H IV 10/19/24 18:00 10/22/24 10:14 250 MLS/HR Pantoprazole Sodium 40 mg DAILY IV 10/21/24 08:30 10/22/24 09:23 40 MG Examination General: RASS -3, afebrile, mucosae are moist Cardiovascular: Normal S1 and S2. No murmurs, gallops or rubs Respiratory: Mechanically assisted ventilation, equal bilateral airway entree. Clear lung sounds on auscultation Abdomen: Soft, nontender, no organomegaly, sluggish bowel sounds MSK/skin: Mobilization of limbs cannot be evaluated. Skin is dry and warm. bilateral pedal edema +, S/P rt toe debridement and covered with dressing. Neurological: Orientation cannot be assessed. No apparent motor no sensitive deficits. Pupils are isocoric and reactive laboratory and microbiology Laboratory Tests 10/22/24 03:19 Test 10/22/24 03:19 Range/Units Serum Glucose 129 H 74-106 mg/dL Microbiology Date/Time Source Procedure Growth Status 10/20/24 16:30 Blood Blood Culture - Preliminary NO GROWTH AFTER 24 HOURS OF INCUBATION. Resulted 10/16/24 17:40 Catheter Tip Aerobic Culture - Final Complete 10/16/24 09:39 Penis Aerobic Culture - Final Methicillin Resistant S.aureus Presumptive Hellen tropicalis Complete 10/14/24 22:10 Voided Urine Urine Culture - Final Presumptive Hellen tropicalis Complete 10/10/24 16:45 Sputum Expectorated Sputum Gram Stain - Final Complete 10/10/24 16:45 Sputum Expectorated Sputum Respiratory Culture - Final Complete Labs and/or images reviewed: Labs reviewed by me, Image(s) reviewed by me Problem List/Assessment/Plan Problem List/Assessment/Plan Anemia, possibly related to chronic disease with MCV 86.5 Proctitis MRSA bacteremia Septic emboli due to above Acute left MCA stroke Infective endocarditis with mitral valve vegetations acute complicated cystitis psoas abscess? Sepsis Ruled out ileus Constipation with moderate to severe colonic volume of stool Plan: Held lactulose owing to diarrhea Continue conservative management, observation Stool occult blood negative IV Protonix b.i.d. Already on lactulose Pending MRI lower extremity Orthopedic surgeon on board Continue antibiotics Thank you so much for the opportunity to consult on your patient. GI team will follow the patient. In case of any questions or concerns please feel free to reach out. Plan discussed with Dr. Saunders Plan discussed with: Other (RN) Dietary Evaluation Review Comments: 1) Add cardiac restriction to 60g CCHO diet 2) Initiate Glucerna qd. Encourage optimal PO intake 3) Follow-up with urology and surgery 4) Follow-up with social media content specialist r/t methamphetamine abuse 5) Continue to monitor I&O, labs, and skin integrity Expected Outcomes/Goals: 1) appetite and labs to improve 2) wound to improve 3) f/u in 3-5 days NICOLETTE ROSADO RESIDENT Oct 22, 2024 15:22
--- NOTE | 2024-10-22 17:41 | DVHPNRES ---
Progress Note Date Seen: Oct 22, 2024 Resident Creating Document: GAURI IGNACIO RESIDENT Medical Necessity Reason Pt with a Central, PICC or Fol: No Subjective Review of Systems Patient is a 39-year-old male with past medical history of diabetes mellitus, MRSA of the urine, hyperlipidemia, and methamphetamine abuse presented to [facility] ED with complaint of fever. Patient reports he has been experiencing fever, associated with generalized weakness, abdominal pain, presents with Kan catheter in place due to recent prostate surgery. Patient was seen and evaluated in the ED, laboratory data shows WBC 6.1, hemoglobin 9.5, hematocrit 28.7, platelets 203, sodium 130, potassium 4.0, BUN 23, creatinine 1.12, glucose 382, calcium 8.5, albumin 3.1, blood pressure 110/70, heart rate 136 trending down to 96, temperature 103.2 F trending down to 97.6 F, O2 saturation 95% on room air. Abdomen/pelvis CT revealing evidence of left sacroiliitis with gas and fluid extending into left pelvic muscles likely representing abscess; rectal wall thickening correlate for symptoms of proctitis; Kan catheter decompressed urinary bladder with wall thickening; hypodense appearance of the mildly enlarged prostate, cystitis and prostatitis or possible. Patient was started on IV antibiotic regimen vancomycin, Patient was seen and examined in the ICU on the bedside. He is on mechanical ventilation with FiO2 30%, peep 5, tidal volume 500 mL, respiratory rate 20. Today patient was spontaneous breathing trial for 2 hours became agitated and tachypnic needed to put back on ventilation . Continue sedation with fentanyl and precedex. Follow blood culture X2 were negative for any growth. Patient had an TIM on 10/14/24 and found mitral valve vegetation with normal ejection fraction. s/p debridement of right foot ulcer. MRI of the head without contrast demonstrated large area of diffusion restriction of the left posterior temporal lobe and left parietal lobe, small area of punctate infarction along the right posterior frontal lobe to parietal lobe and imaging pattern may be compatible with embolic phenomenon. CT abdomen pelvis on 0 01/29 showed foci of air and the left psoas muscle with erosive changes of the left SI joint, osteomyelitis/ septic arthritis and left psoas sepsis. orthopedics Dr. Hoffman recommended spinal surgery consult and, MRI of the LS spine for possible I and D. pending MRI of lumbosacral spine. CPAP trial tomorrow. Objective vital signs Vital Sign Date Time Temp Pulse Resp B/P (MAP) Pulse Ox O2 Delivery O2 Flow Rate FiO2 10/22/24 16:09 70 20 113/67 (82) 99 30 10/22/24 16:00 Mechanical Ventilator+ 10/22/24 12:00 98.5 98.5 Total Intake and Output 10/21/24 10/21/24 10/22/24 15:00 23:00 07:00 Intake Total 628 ml 597 ml 634.5 ml Output Total 0 ml 2702 ml 3150 ml Balance 628 ml -2105 ml -2515.5 ml medications Current Medications Medications Dose Ordered Sig/Dion Route Start Time Stop Time Status Last Admin Dose Admin Acetaminophen 650 mg Q6HP PRN [place] 10/10/24 10:00 10/10/24 15:18 650 MG Midazolam HCl 50 ml @ 1 mls/hr Q24H IV 10/10/24 17:15 10/22/24 15:40 7 MLS/HR Fentanyl Citrate 250 ml @ 2.5 mls/hr Q24H IV 10/10/24 17:15 10/22/24 13:50 25 MLS/HR Propofol 100 ml @ 2.496 mls/ hr Q24H IV 10/10/24 17:15 Norepinephrine Bitartrate 250 ml @ 3.75 mls/hr Q24H IV 10/10/24 17:45 10/15/24 04:04 3.75 MLS/HR Diagnostic Test (Pha) 1 strip Q6HR 10/11/24 00:00 10/22/24 15:40 1 STRIP Insulin Human Regular FOLLOW SLIDING SCALE Q6HR SC 10/11/24 00:00 10/22/24 13:49 4 UNITS Dextrose 50 ml UD IV 10/10/24 22:00 Amino Acids 0 ml @ 0 mls/hr PER PHARMACY IV 10/10/24 19:00 UNV Enteral Nutritional Formula 1,000 ml 40ML/HR GT 10/10/24 21:15 10/18/24 05:44 1,000 ML Daptomycin 750 mg/ Sodium Chloride 50 ml @ 100 mls/hr DAILY IV 10/14/24 10:00 10/22/24 10:10 100 MLS/HR Bumetanide 12.5 mg/Miscellaneous 50 ml @ 4 mls/hr [id number] IV 10/15/24 13:00 10/22/24 07:05 4 MLS/HR Ceftaroline Fosamil 600 mg/ Sodium Chloride 250 ml @ 250 mls/hr Q8H IV 10/19/24 18:00 10/22/24 10:14 250 MLS/HR Pantoprazole Sodium 40 mg DAILY IV 10/21/24 08:30 10/22/24 09:23 40 MG Examination Examination General: RASS -1, afebrile, mucosae are moist Cardiovascular: Normal S1 and S2. No murmurs, gallops or rubs Respiratory: Mechanically assisted ventilation, equal bilateral airway entree. Clear lung sounds on auscultation Abdomen: Soft, nontender, no organomegaly, sluggish bowel sounds MSK/skin: Mobilization of limbs cannot be evaluated. Skin is dry and warm. bilateral pedal edema +, S/P rt toe debridement and covered with dressing. Neurological: Orientation cannot be assessed. No apparent motor no sensitive deficits. Pupils are isocoric and reactiv laboratory and microbiology Laboratory Tests 10/22/24 03:19 Test 10/22/24 03:19 Range/Units Serum Glucose 129 H 74-106 mg/dL Microbiology Date/Time Source Procedure Growth Status 10/20/24 16:30 Blood Blood Culture - Preliminary NO GROWTH AFTER 48 HOURS OF INCUBATION. Resulted 10/16/24 17:40 Catheter Tip Aerobic Culture - Final Complete 10/16/24 09:39 Penis Aerobic Culture - Final Methicillin Resistant S.aureus Presumptive Hellen tropicalis Complete 10/14/24 22:10 Voided Urine Urine Culture - Final Presumptive Hellen tropicalis Complete 10/10/24 16:45 Sputum Expectorated Sputum Gram Stain - Final Complete 10/10/24 16:45 Sputum Expectorated Sputum Respiratory Culture - Final Complete Labs and/or images reviewed: Labs reviewed by me, Image(s) reviewed by me Problem List/Assessment/Plan Problem List/Assessment/Plan Assessment and plan: NEURO: Acute metabolic encephalopathy secondary to ischemic stroke Possible septic emboli due to persistent MRSA bacteremia History of Bipolar disorder RASS score: -1 - CT head without contrast demonstrated acute left MCA stroke - MRI of the head without contrast demonstrated large area of diffusion restriction of the left posterior temporal lobe and left parietal lobe, small area of punctate infarction along the right posterior frontal lobe to parietal lobe and imaging pattern may be compatible with embolic phenomenon. - continue aspirin 81 mg and Plavix 75 mg daily CARDIOVASCULAR: Acute infective endocarditis of mitral valve Possible chronic diastolic heart failure with preserved ejection fraction - TMI on 10/14/2024 demonstrated mitral valve, structurally normal, anterior leaflet has a 0.8 cm vegetation with a stalk. 0.8 X 0.4 cm, no significant MR or abscess is noted - TTE revealed EF 45-50%, anteroseptal hypokinesis, biatrial enlargement - Infectious disease on board - Continue IV ceftaroline and daptomycin PULMONARY: Rt sided opacity due to possible mucus plug/volume overload Lt sided pleural effusion - IR mentioned not enough fluid for Lt thoracentesis. GASTROENTEROLOGY: Ruled out ileus Moderate to Severe colonic volume of stool Acute watery diarrhoea - Stop Lactulose and miralax. GENITOURINARY: JAYLEEN secondary to vancomycin toxicity Possible prostatic abscess, history of recent prostate surgery Acute complicated cystitis - CT abdomen pelvis on 12/30 showed foci of air and the left psoas muscle with erosive changes of the left SI joint, osteomyelitis/ septic arthritis and left psoas abscess - pending MRI of the pelvis - IV Bumex drip - Continue IV ceftaroline and daptomycin ENDOCRINE: Type 2 diabetes mellitus, hemoglobin A1c 13.2 Diabetic foot ulcer of right toe - CT right foot without contrast showed erosive changes involved proximal and distal phalanx with involvement of IP joint, possible osteomyelitis/septic arthritis, deep 1st digit plantar ulceration - S/P I &D of rt foot - sliding scale of insulin METABOLIC: Moderate Protein calorie malnutrition, albumin 2.1 Hyperphosphatemia secondary to JAYLEEN Hypomagnesemia Metabolic acidosis due to JAYLEEN HEME: Acute on Chronic normocytic anemia secondary to dilutional versus anticoagulant use - 1 unit PRBC given - Hold DVT prophylaxis - Monitor H&H INFECTIOUS DISEASE: 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 Diabetic foot ulcer of right great toe Possible Prostatic abscess Acute Complicated cystitis Acute proctitis - Blood culture on 10/16/2024 preliminary report demonstrated no growth in 24 hours of incubation - recent penile culture and right foot culture demonstrated MRSA, Enterococcus faecalis - Continue IV ceftaroline and daptomycin - CT abdomen pelvis without contrast on 10/16/2024 showed foci of air at the left psoas muscle with erosive changes at the left anterior sacroiliac joint. Findings are concerning for acute osteomyelitis/septic arthritis with left psoas muscle abscess - Pending MRI of lumbosacral spine DIET: Tube feeding DVT prophylax: SCD GI prophylaxis: Protonix Bowel regimen: Code status: Full code LINES/DRAINS/ACCESS: ETT: Intubated on 10/10/2024 IV access: Left IJ placed on 10/16/24 Drips: Precedex, fentanyl Kan catheter: Placed on 10/02/2024 DISPOSITION: ICU Patient's status discussed with mom, critical care registered nurse time spent more than 83 minutes, including CPAP trial, patient care, chart review, and updating the family. Excluding any procedures. CPAP trial tomorrow. Plan discussed with Dr. Galeano Plan discussed with: Other (Mom, cousin, RN) My Orders My Orders Orders - GAURI IGNACIO Procedure Category Date Status Time Chest Portable XY 10/22/24 Resulted 04:00 Abg W/ Co-Ox RT 10/22/24 Logged 04:00 Respiratory Misc. RT 10/22/24 Transmitted Order 05:57 Cpap Trial For Am ORDERS 10/22/24 Transmitted 08:24 Ventilator Orders RT 10/22/24 Transmitted 08:18 Abg W/ Co-Ox RT 10/22/24 Logged 08:30 Dietary Evaluation Review Comments: 1) Add cardiac restriction to 60g CCHO diet 2) Initiate Glucerna qd. Encourage optimal PO intake 3) Follow-up with urology and surgery 4) Follow-up with social worker health services r/t methamphetamine abuse 5) Continue to monitor I&O, labs, and skin integrity Expected Outcomes/Goals: 1) appetite and labs to improve 2) wound to improve 3) f/u in 3-5 days Date of Service: Oct 22, 2024 Billing Provider: DEE DEE GALEANO MD Common Visit Codes: 23395-GFCYZRVN CARE 30-74 MIN, 67017-[id number] CARE-EACH +30MIN GAURI IGNACIO Oct 22, 2024 17:41 DEE DEE GALEANO MD Oct 23, 2024 11:34
--- NOTE | 2024-10-22 19:41 | DVHPN2 ---
Progress Note Date Seen: Oct 22, 2024 Medical Necessity Reason Pt with a Central, PICC or Fol: No Subjective Patient reports: Other (Patient remains intubated mother is at bedside) Review of Systems: Deferred Objective vital signs Vital Sign Date Time Temp Pulse Resp B/P (MAP) Pulse Ox O2 Delivery O2 Flow Rate FiO2 10/22/24 18:11 74 20 119/75 (90) 99 30 10/22/24 18:00 Mechanical Ventilator+ 10/22/24 12:00 98.5 98.5 Total Intake and Output 10/21/24 10/21/24 10/22/24 15:00 23:00 07:00 Intake Total 628 ml 597 ml 634.5 ml Output Total 0 ml 2702 ml 3150 ml Balance 628 ml -2105 ml -2515.5 ml medications Current Medications Medications Dose Ordered Sig/Dion Route Start Time Stop Time Status Last Admin Dose Admin Acetaminophen 650 mg Q6HP PRN CA 10/10/24 10:00 10/10/24 15:18 650 MG Midazolam HCl 50 ml @ 1 mls/hr Q24H IV 10/10/24 17:15 10/22/24 15:40 7 MLS/HR Fentanyl Citrate 250 ml @ 2.5 mls/hr Q24H IV 10/10/24 17:15 10/22/24 13:50 25 MLS/HR Propofol 100 ml @ 2.496 mls/ hr Q24H IV 10/10/24 17:15 Norepinephrine Bitartrate 250 ml @ 3.75 mls/hr Q24H IV 10/10/24 17:45 10/15/24 04:04 3.75 MLS/HR Diagnostic Test (Pha) 1 strip Q6HR 10/11/24 00:00 10/22/24 15:40 1 STRIP Insulin Human Regular FOLLOW SLIDING SCALE Q6HR SC 10/11/24 00:00 10/22/24 13:49 4 UNITS Dextrose 50 ml UD IV 10/10/24 22:00 Amino Acids 0 ml @ 0 mls/hr PER PHARMACY IV 10/10/24 19:00 UNV Enteral Nutritional Formula 1,000 ml 40ML/HR GT 10/10/24 21:15 10/18/24 05:44 1,000 ML Daptomycin 750 mg/ Sodium Chloride 50 ml @ 100 mls/hr DAILY IV 10/14/24 10:00 10/22/24 10:10 100 MLS/HR Bumetanide 12.5 mg/Miscellaneous 50 ml @ 4 mls/hr [id number] IV 10/15/24 13:00 10/22/24 07:05 4 MLS/HR Ceftaroline Fosamil 600 mg/ Sodium Chloride 250 ml @ 250 mls/hr Q8H IV 10/19/24 18:00 10/22/24 10:14 250 MLS/HR Pantoprazole Sodium 40 mg DAILY IV 10/21/24 08:30 10/22/24 09:23 40 MG Examination: GENERAL:Abnormal, LUNGS:Abnormal, MSK:Abnormal, SKIN:Abnormal, NEURO:Abnormal, :Abnormal laboratory and microbiology Laboratory Tests 10/22/24 03:19 Test 10/22/24 03:19 Range/Units Serum Glucose 129 H 74-106 mg/dL Microbiology Date/Time Source Procedure Growth Status 10/20/24 16:30 Blood Blood Culture - Preliminary NO GROWTH AFTER 48 HOURS OF INCUBATION. Resulted 10/16/24 17:40 Catheter Tip Aerobic Culture - Final Complete 10/16/24 09:39 Penis Aerobic Culture - Final Methicillin Resistant S.aureus Presumptive Hellen tropicalis Complete 10/14/24 22:10 Voided Urine Urine Culture - Final Presumptive Hellen tropicalis Complete 10/10/24 16:45 Sputum Expectorated Sputum Gram Stain - Final Complete 10/10/24 16:45 Sputum Expectorated Sputum Respiratory Culture - Final Complete Problem List/Assessment/Plan Problem List/Assessment/Plan Acute kidney injury multifactorial hemodynamically mediated, FeNa < 1% Acute respiratory failure, patient intubated on ventilator Vancomycin nephrotoxicity Septic shock Acute CVA MRSA bacteremia Bacterial endocarditis Lower extremity MRSA wound infection BPH status post TURP with indwelling Kan catheter d History of methamphetamine abuse Hypoalbuminemia Metabolic acidosis Hypernatremia due to insensible water loss recs Continue both Bumex drip reduce rate as ordered----urine output noted Patient has significant edema scrotal edema continue diuretics-on bumex drip Antibiotics renally dosed to GFR We will follow closely Plan discussed with: Other My Orders My Orders Orders - XUAN MATTHEWS MD Procedure Category Date Status Time Bumex Drip PHA 10/22/24 Verified 19:45 Dietary Evaluation Review Comments: 1) Add cardiac restriction to 60g CCHO diet 2) Initiate Glucerna qd. Encourage optimal PO intake 3) Follow-up with urology and surgery 4) Follow-up with social work therapist r/t methamphetamine abuse 5) Continue to monitor I&O, labs, and skin integrity Expected Outcomes/Goals: 1) appetite and labs to improve 2) wound to improve 3) f/u in 3-5 days XUAN MATTHEWS MD Oct 22, 2024 19:41
--- NOTE | 2024-10-22 22:11 | DVHPN2 ---
Progress Note - Dictate Date Seen: Oct 22, 2024 Medical Necessity Reason Pt with a Central, PICC or Fol: No Subjective Mr. Velazquez is a 39 years old gentleman with a history of diabetes, GERD, bipolar disorder, schizophrenia, chronic diabetic ulcer, he was brought to the [facility] on 10/02/2024 with a chief company of fever, the patient is also noticed to have altered mental status, in the CT brain scan showed evidence suggestive of left MCA territory acute stroke. Because of fever, worsening mental status, that is was intubated and transferred to ICU on 10/10/24 I have seen and examined the patient, talked to his nurse, he is intubated, sedated, responsive to light touch, but he is nonresponsive to verbal stimuli He was agitated earlier today Versed 8 mg/hour, fentanyl 275 mcg/hour Called [phone], at 10:13PM, no answer Blood culture, 10/02/2024: MRSA Blood culture, 10/03/2024: MRSA Blood culture, 10/04/2024: MRSA UDS, 10/03/2024: Amphetamine, 10/05/24: Negative Urinalysis, 10/02/2024: WBC: 30, urine leukocyte esterase: Trace WBC/HB/PLT/MCV, 10/06/2024: 5/8.7/130/82.4, 10/10/2024: 6.5/8.1/211/84.5, 10/11/2024: 6.1/7.5/176/85.9, 10/21/2024: 6/8.4/147/81.6 PTT/INR/eight six, 10/02/2024: 12.3/1.18/34.4 Na, 10/07/2024: 144 10/10/2024: 151, 10/11/2024: 148 CMP, 10/05/2024: Unremarkable BUN/CR, 10/10/2024: 22/0.96, 10/11/2024: 32/1.94 GFR, 10/10/2024: 102, 10/11/2024: 44 Liver function tests, 10/11/2024: Unremarkable HGB A1c, 05/10/2023: >14 TG/HDL/LDL/HDL, 10/07/2024: 153/87/39/9 TIM, 10/14/2024: Left Ventricle: Normal LV size and function, LVEF estimated at 60% Right Ventricle: NOrmal RV size and function Left atrium: normal Right atrium: normal RA Left atrial appendage: no thrombus noted, d Aortic valve: trileaflet valve, no severe or AI Mitral Valve: structurally normal, anterior leaflet has 0. 8 cm vegetation with stalk . 0.8 x 0.4 cm, no significant MR is noted however, no abscess noted Tricuspid Valve: mild tricuspid regurgitaiton, no TS Pulmonic Valve: structurally normal, no severe PIor PS Interatrial septum: negative color flow for R to L shunt, negative bubble study Ascending aorta: no severe plaquing Echocardiogram, 10/06/2024: Technically good study. Off axis views. Limited views obtained. There appears to be biatrial enlargement and LV enlargement. Mild aortic root enlargement. Valves appear to be structurally normal. Left ventricular function is borderline at 45 to 50% anteroseptal hypokinesis.. Normal RV function. Mild TR. No pericardial effusion masses or vegetations. CT head, 10/05/2024: Acute left MCA territory infarct in left insula/temporal operculum/temporal lobe. No hemorrhage or mass effect Sedated, 10/09/2024: 1. Interval progression in evolution of left middle cerebral artery territory infarct involving the insula / temporal are operculum/ temporal lobe with associated loss of khoury-white matter differentiation and progressively diminished parenchymal attenuation. 2. No evidence of intracranial hemorrhage, mass effect, midline shift or herniation. 3. Chronic sequelae of microangiopathy and atrophic cortical volume loss. CT abdomen/pelvis, 10/06/2024: 1. Trace bilateral pleural effusions with adjacent atelectasis and patchy posterior bibasilar pulmonary infiltrate. 2. Hepatomegaly. 3. Excess retained colorectal stool and moderate proximal mechanical small-bowel obstruction. 4. Moderate gas and Kan catheter within the urinary bladder CT abdomen/pelvis, 10/16/2024: Foci of air at the left psoas muscle with erosive changes at the left anterior sacroiliac joint. Findings are concerning for acute osteomyelitis/septic arthritis with left psoas muscle abscess. Evaluated on this study is extremely limited due to lack of IV contrast and artifact. Suggest MRI with and without IV contrast for further evaluation. If MRI cannot be performed, contrast enhanced CT is suggested. Small to moderate amount of ascites. Extensive body wall edema. Small to moderate left and small right pleural effusions. Diabetes mellitus. Constipation. CTA head, neck, 10/05/2024: 1. No evidence of acute intracranial hemorrhage, mass effect or hydrocephalus. 2. No evidence of hemodynamically significant intracranial stenosis, proximal occlusion or aneurysm. 3. No evidence of hemodynamically significant cervical stenosis or dissection MRI head, 10/15/2024: 1. Large area of diffusion restriction of the left posterior temporal lobe and left parietal lobe. 2. Small areas of punctate infarction along the right posterior frontal lobe to parietal lobe. 3. Imaging pattern may be compatible with embolic phenomenon vital signs Vital Sign Date Time Temp Pulse Resp B/P (MAP) Pulse Ox O2 Delivery O2 Flow Rate FiO2 10/22/24 20:11 70 20 145/85 (105) 99 30 10/22/24 18:00 Mechanical Ventilator+ 10/22/24 16:00 98.5 98.5 Total Intake and Output 10/21/24 10/21/24 10/22/24 15:00 23:00 07:00 Intake Total 628 ml 597 ml 634.5 ml Output Total 0 ml 2702 ml 3150 ml Balance 628 ml -2105 ml -2515.5 ml medications Current Medications Medications Dose Ordered Sig/Dion Route Start Time Stop Time Status Last Admin Dose Admin Acetaminophen 650 mg Q6HP PRN GA 10/10/24 10:00 10/10/24 15:18 650 MG Midazolam HCl 50 ml @ 1 mls/hr Q24H IV 10/10/24 17:15 10/22/24 15:40 6 MLS/HR Fentanyl Citrate 250 ml @ 2.5 mls/hr Q24H IV 10/10/24 17:15 10/22/24 13:50 12.5 MLS/HR Propofol 100 ml @ 2.496 mls/ hr Q24H IV 10/10/24 17:15 Norepinephrine Bitartrate 250 ml @ 3.75 mls/hr Q24H IV 10/10/24 17:45 10/15/24 04:04 3.75 MLS/HR Diagnostic Test (Pha) 1 strip Q6HR 10/11/24 00:00 10/22/24 19:38 1 STRIP Insulin Human Regular FOLLOW SLIDING SCALE Q6HR SC 10/11/24 00:00 10/22/24 19:43 2 UNITS Dextrose 50 ml UD IV 10/10/24 22:00 Amino Acids 0 ml @ 0 mls/hr PER PHARMACY IV 10/10/24 19:00 UNV Enteral Nutritional Formula 1,000 ml 40ML/HR GT 10/10/24 21:15 10/18/24 05:44 1,000 ML Daptomycin 750 mg/ Sodium Chloride 50 ml @ 100 mls/hr DAILY IV 10/14/24 10:00 10/22/24 10:10 100 MLS/HR Ceftaroline Fosamil 600 mg/ Sodium Chloride 250 ml @ 250 mls/hr Q8H IV 10/19/24 18:00 10/22/24 19:36 250 MLS/HR Pantoprazole Sodium 40 mg DAILY IV 10/21/24 08:30 10/22/24 09:23 40 MG Bumetanide 12.5 mg/Miscellaneous 50 ml @ 2 mls/hr Q24H IV 10/22/24 19:45 objective General: the patient is well developed and nourished. No acute distress. Intubated MUSCULOSKELETAL EXAM: Chronic ulcer in the right big toe, a small skin lesion in the left big toe (initial consult) MENTAL STATUS: Subjective SPEECH, LANGUAGE, HIGHER CORTICAL FUNCTION: Subjective CRANIAL NERVES: Pupils are equal, round and reactive. Eyes are closed. No sign of facial weakness. He has gag reflexes during oral care SENSATION: Responsive to stroke painful stimuli MOTOR: Muscle tone feels normal, he moves the arms REFLEXES: Deep tendon reflexes feel symmetrical. No pathological reflexes. CEREBELLAR/COORDINATION: Deferred GAIT/STATION: deferred laboratory and microbiology Laboratory Tests 10/22/24 03:19 Test 10/22/24 03:19 Range/Units Serum Glucose 129 H 74-106 mg/dL Problem List Altered mental status, secondary to Acute stroke Metabolic encephalopathy Rule out intracranial infection Acute respiratory failure Acute stroke Sepsis with MRSA Chronic diabetic wound, status post debridement on 10/15/2024 Endocarditis Osteomyelitis Psoas abscess History of substance abuse Assessment/Plan Monitoring Supportive treatment ICU care Follow up tests MRI lumbar spine Stabilize vitals Respiratory support/vent management Aspirin 81 mg daily (on hold) D/C Lipitor 20 mg daily (LDL: 39) IV antibiotics Haldol p.r.n. for agitation DVT prophylaxis/Lovenox (on hold) Infectious disease on case Need to quit substance abuse Orthopedic on case More recommendation per clinical course This medical document was created using an electronic medical record system with [employer] dictation system. Although this document has been carefully reviewed, there may still be some phonetic and typographical errors. These areas are purely typographical due to imperfections of the software programs, and do not reflect any compromise in the patient's medical care. Prognosis Guarded Dietary Evaluation Review Comments: 1) Add cardiac restriction to 60g CCHO diet 2) Initiate Glucerna qd. Encourage optimal PO intake 3) Follow-up with urology and surgery 4) Follow-up with social services assistant r/t methamphetamine abuse 5) Continue to monitor I&O, labs, and skin integrity Expected Outcomes/Goals: 1) appetite and labs to improve 2) wound to improve 3) f/u in 3-5 days Plan discussed with: Other CALEB PAYNE MD Oct 22, 2024 22:11
[2024-10-22] MEDS: BUMETANIDE INJECTION 12.5 MG in GIVE UN-DILUTED 0 ML IV SCH (23:03)
[2024-10-23] VITALS (82 sets, daily range): BP systolic 99–144; BP diastolic 59–89; PULSE 60–109; RESP 10–30; TEMP 98–98.7; O2SAT 89–100
[2024-10-23] MEDS: BUMETANIDE INJECTION 50 ML ONE (02:43)
[2024-10-23 03:52] LABS: Anion Gap 7 (5-15); Chloride 104 mmol/L (98-107); Sodium 144 mmol/L (136-145)
[2024-10-23 03:53] LABS: Nucleated Red Blood Cells % 0.1 %
[2024-10-23 03:55] LABS: Hematocrit 22.5 % (41.0-53.0); Hemoglobin 7.7 g/dL (13.5-17.5); Mean Corpuscular Hemoglobin 27.9 pg (28.0-32.0); Mean Corpuscular Volume 82.2 fL (80.0-100.0)
[2024-10-23 03:58] LABS: Glucose 104 mg/dL (74-106)
[2024-10-23 03:59] LABS: BUN/Creatinine Ratio 16.3 (10.0-20.0)
[2024-10-23 04:08] LABS: Blood Urea Nitrogen 29 mg/dL (9-23); Calcium 7.6 mg/dL (8.7-10.4); Carbon Dioxide 33 mmol/L (20-31); Potassium 3.0 mmol/L (3.5-5.1)
--- NOTE | 2024-10-23 05:43 | DVH ---
CHEST RADIOGRAPH Indication: mechanical ventilation Technique: Single frontal view of the chest was obtained COMPARISON: XY CHEST PORTABLE on DOS: 10/22/24, XY CHEST PORTABLE on DOS: 10/21/24, XY CHEST PORTABLE o n DOS: 10/20/24, XY CHEST PORTABLE on DOS: 10/19/24, XY CHEST PORTABLE on DOS: 10/18/24 FINDINGS: Lines and Tubes: Endotracheal tube, enteric catheter, and left central venous catheter are in satisfa ctory position. Lungs: Congestion Pleura: No effusion. No pneumothorax. Cardiomediastinal contours: Unremarkable Bones: Unremarkable IMPRESSION: Lines and tubes in satisfactory position. No significant interval change.
[2024-10-23 07:33] LABS: Base Excess 7.3 mmol/L (-2.0-3.0)
[2024-10-23] MEDS: MAGNESIUM SULFATE 1GM/100ML 100 ML IV ONE (10:10)
[2024-10-23] MEDS: POTASSIUM CHL 20MEQ/100ML 100 ML IV ONE (10:10)
--- NOTE | 2024-10-23 10:36 | DVHPN2 ---
Progress Note - Dictate Date Seen: Oct 23, 2024 Medical Necessity Reason Pt with a Central, PICC or Fol: No Subjective Mr. Velazquez is a 39 years old gentleman with a history of diabetes, GERD, bipolar disorder, schizophrenia, chronic diabetic ulcer, he was brought to the [facility] on 10/02/2024 with a chief company of fever, the patient is also noticed to have altered mental status, in the CT brain scan showed evidence suggestive of left MCA territory acute stroke. Because of fever, worsening mental status, that is was intubated and transferred to ICU on 10/10/24 I have seen and examined the patient, talked to his nurse, he is intubated, sedated, he likes awake, but is nonresponsive to my verbal commands Precedex 0.7 mcg/kg/hr Called [phone], at 10:13PM, no answer Blood culture, 10/02/2024: MRSA Blood culture, 10/03/2024: MRSA Blood culture, 10/04/2024: MRSA UDS, 10/03/2024: Amphetamine, 10/05/24: Negative Urinalysis, 10/02/2024: WBC: 30, urine leukocyte esterase: Trace WBC/HB/PLT/MCV, 10/06/2024: 5/8.7/130/82.4, 10/10/2024: 6.5/8.1/211/84.5, 10/11/2024: 6.1/7.5/176/85.9, 10/21/2024: 6/8.4/147/81.6 PTT/INR/eight six, 10/02/2024: 12.3/1.18/34.4 Na, 10/07/2024: 144 10/10/2024: 151, 10/11/2024: 148 CMP, 10/05/2024: Unremarkable BUN/CR, 10/10/2024: 22/0.96, 10/11/2024: 32/1.94 GFR, 10/10/2024: 102, 10/11/2024: 44 Liver function tests, 10/11/2024: Unremarkable HGB A1c, 05/10/2023: >14 TG/HDL/LDL/HDL, 10/07/2024: 153/87/39/9 TIM, 10/14/2024: Left Ventricle: Normal LV size and function, LVEF estimated at 60% Right Ventricle: NOrmal RV size and function Left atrium: normal Right atrium: normal RA Left atrial appendage: no thrombus noted, d Aortic valve: trileaflet valve, no severe or AI Mitral Valve: structurally normal, anterior leaflet has 0. 8 cm vegetation with stalk . 0.8 x 0.4 cm, no significant MR is noted however, no abscess noted Tricuspid Valve: mild tricuspid regurgitaiton, no TS Pulmonic Valve: structurally normal, no severe PIor PS Interatrial septum: negative color flow for R to L shunt, negative bubble study Ascending aorta: no severe plaquing Echocardiogram, 10/06/2024: Technically good study. Off axis views. Limited views obtained. There appears to be biatrial enlargement and LV enlargement. Mild aortic root enlargement. Valves appear to be structurally normal. Left ventricular function is borderline at 45 to 50% anteroseptal hypokinesis.. Normal RV function. Mild TR. No pericardial effusion masses or vegetations. CT head, 10/05/2024: Acute left MCA territory infarct in left insula/temporal operculum/temporal lobe. No hemorrhage or mass effect Sedated, 10/09/2024: 1. Interval progression in evolution of left middle cerebral artery territory infarct involving the insula / temporal are operculum/ temporal lobe with associated loss of khoury-white matter differentiation and progressively diminished parenchymal attenuation. 2. No evidence of intracranial hemorrhage, mass effect, midline shift or herniation. 3. Chronic sequelae of microangiopathy and atrophic cortical volume loss. CT abdomen/pelvis, 10/06/2024: 1. Trace bilateral pleural effusions with adjacent atelectasis and patchy posterior bibasilar pulmonary infiltrate. 2. Hepatomegaly. 3. Excess retained colorectal stool and moderate proximal mechanical small-bowel obstruction. 4. Moderate gas and Kan catheter within the urinary bladder CT abdomen/pelvis, 10/16/2024: Foci of air at the left psoas muscle with erosive changes at the left anterior sacroiliac joint. Findings are concerning for acute osteomyelitis/septic arthritis with left psoas muscle abscess. Evaluated on this study is extremely limited due to lack of IV contrast and artifact. Suggest MRI with and without IV contrast for further evaluation. If MRI cannot be performed, contrast enhanced CT is suggested. Small to moderate amount of ascites. Extensive body wall edema. Small to moderate left and small right pleural effusions. Diabetes mellitus. Constipation. CTA head, neck, 10/05/2024: 1. No evidence of acute intracranial hemorrhage, mass effect or hydrocephalus. 2. No evidence of hemodynamically significant intracranial stenosis, proximal occlusion or aneurysm. 3. No evidence of hemodynamically significant cervical stenosis or dissection MRI head, 10/15/2024: 1. Large area of diffusion restriction of the left posterior temporal lobe and left parietal lobe. 2. Small areas of punctate infarction along the right posterior frontal lobe to parietal lobe. 3. Imaging pattern may be compatible with embolic phenomenon vital signs Vital Sign Date Time Temp Pulse Resp B/P (MAP) Pulse Ox O2 Delivery O2 Flow Rate FiO2 10/23/24 10:14 62 20 133/87 (102) 98 30 10/23/24 08:00 Mechanical Ventilator+ 10/23/24 08:00 98.4 98.4 Total Intake and Output 10/22/24 10/22/24 10/23/24 15:00 23:00 07:00 Intake Total 601.409 ml 787.789 ml 1000.853 ml Output Total 2501 ml 2800 ml Balance 601.409 ml -1713.211 ml -1799.147 ml medications Current Medications Medications Dose Ordered Sig/Dion Route Start Time Stop Time Status Last Admin Dose Admin Acetaminophen 650 mg Q6HP PRN NC 10/10/24 10:00 10/10/24 15:18 650 MG Midazolam HCl 50 ml @ 1 mls/hr Q24H IV 10/10/24 17:15 10/22/24 23:04 6 MLS/HR Fentanyl Citrate 250 ml @ 2.5 mls/hr Q24H IV 10/10/24 17:15 10/22/24 23:18 15 MLS/HR Propofol 100 ml @ 2.496 mls/ hr Q24H IV 10/10/24 17:15 Norepinephrine Bitartrate 250 ml @ 3.75 mls/hr Q24H IV 10/10/24 17:45 10/15/24 04:04 3.75 MLS/HR Diagnostic Test (Pha) 1 strip Q6HR 10/11/24 00:00 10/23/24 05:20 1 STRIP Insulin Human Regular FOLLOW SLIDING SCALE Q6HR SC 10/11/24 00:00 10/22/24 23:18 4 UNITS Dextrose 50 ml UD IV 10/10/24 22:00 Amino Acids 0 ml @ 0 mls/hr PER PHARMACY IV 10/10/24 19:00 UNV Enteral Nutritional Formula 1,000 ml 40ML/HR GT 10/10/24 21:15 10/18/24 05:44 1,000 ML Daptomycin 750 mg/ Sodium Chloride 50 ml @ 100 mls/hr DAILY IV 10/14/24 10:00 10/23/24 10:09 100 MLS/HR Ceftaroline Fosamil 600 mg/ Sodium Chloride 250 ml @ 250 mls/hr Q8H IV 10/19/24 18:00 10/23/24 10:12 250 MLS/HR Pantoprazole Sodium 40 mg DAILY IV 10/21/24 08:30 10/23/24 10:10 40 MG Bumetanide 12.5 mg/Miscellaneous 50 ml @ 2 mls/hr Q24H IV 10/22/24 19:45 10/22/24 23:03 2 MLS/HR Potassium Chloride 100 ml @ 50 mls/hr Q2H IV 10/23/24 09:15 10/23/24 13:14 objective General: the patient is well developed and nourished. No acute distress. Intubated MUSCULOSKELETAL EXAM: Chronic ulcer in the right big toe, a small skin lesion in the left big toe (initial consult) MENTAL STATUS: Subjective SPEECH, LANGUAGE, HIGHER CORTICAL FUNCTION: Subjective CRANIAL NERVES: Pupils are equal, round and reactive. Eyes are closed. No sign of facial weakness. He has gag reflexes during oral care SENSATION: Responsive to pain in the light touch MOTOR: Muscle tone feels normal, he moves the arms REFLEXES: Deep tendon reflexes feel symmetrical. No pathological reflexes. CEREBELLAR/COORDINATION: Deferred GAIT/STATION: deferred laboratory and microbiology Laboratory Tests 10/23/24 02:50 Test 10/23/24 02:50 Range/Units Serum Glucose 104 74-106 mg/dL Problem List Altered mental status, secondary to Acute stroke Metabolic encephalopathy Rule out intracranial infection Acute respiratory failure Acute stroke Sepsis with MRSA Chronic diabetic wound, status post debridement on 10/15/2024 Endocarditis Osteomyelitis Psoas abscess History of substance abuse Assessment/Plan Monitoring Supportive treatment ICU care Follow up tests MRI lumbar spine Stabilize vitals Respiratory support/vent management Aspirin 81 mg daily (on hold) IV antibiotics Haldol p.r.n. for agitation DVT prophylaxis/Lovenox (on hold) Infectious disease on case Need to quit substance abuse Orthopedic on case More recommendation per clinical course This medical document was created using an electronic medical record system with [employer] dictation system. Although this document has been carefully reviewed, there may still be some phonetic and typographical errors. These areas are purely typographical due to imperfections of the software programs, and do not reflect any compromise in the patient's medical care. Prognosis guarded Dietary Evaluation Review Comments: 1) Add cardiac restriction to 60g CCHO diet 2) Initiate Glucerna qd. Encourage optimal PO intake 3) Follow-up with urology and surgery 4) Follow-up with social sciences research scientist r/t methamphetamine abuse 5) Continue to monitor I&O, labs, and skin integrity Expected Outcomes/Goals: 1) appetite and labs to improve 2) wound to improve 3) f/u in 3-5 days Plan discussed with: Other CALEB PAYNE MD Oct 23, 2024 10:36
--- NOTE | 2024-10-23 12:19 | DVHPN2 ---
Progress Note Date Seen: Oct 23, 2024 Resident Creating Document: NICOLETTE ROSADO RESIDENT Medical Necessity Reason Pt with a Central, PICC or Fol: No Subjective Review of Systems Patient seen and examined at bedside Plan to extubate today Last night 2 bowel movements, 1 BM this a.m., soft and brown without any signs of GI bleed Objective vital signs Vital Sign Date Time Temp Pulse Resp B/P (MAP) Pulse Ox O2 Delivery O2 Flow Rate FiO2 10/23/24 11:30 68 12 144/80 (101) 98 30 10/23/24 10:00 Mechanical Ventilator+ 10/23/24 08:00 98.4 98.4 Total Intake and Output 10/22/24 10/22/24 10/23/24 15:00 23:00 07:00 Intake Total 601.409 ml 787.789 ml 1000.853 ml Output Total 2501 ml 2800 ml Balance 601.409 ml -1713.211 ml -1799.147 ml medications Current Medications Medications Dose Ordered Sig/Dion Route Start Time Stop Time Status Last Admin Dose Admin Acetaminophen 650 mg Q6HP PRN [place] 10/10/24 10:00 10/10/24 15:18 650 MG Midazolam HCl 50 ml @ 1 mls/hr Q24H IV 10/10/24 17:15 10/22/24 23:04 6 MLS/HR Fentanyl Citrate 250 ml @ 2.5 mls/hr Q24H IV 10/10/24 17:15 10/22/24 23:18 15 MLS/HR Propofol 100 ml @ 2.496 mls/ hr Q24H IV 10/10/24 17:15 Norepinephrine Bitartrate 250 ml @ 3.75 mls/hr Q24H IV 10/10/24 17:45 10/15/24 04:04 3.75 MLS/HR Diagnostic Test (Pha) 1 strip Q6HR 10/11/24 00:00 10/23/24 05:20 1 STRIP Insulin Human Regular FOLLOW SLIDING SCALE Q6HR SC 10/11/24 00:00 10/22/24 23:18 4 UNITS Dextrose 50 ml UD IV 10/10/24 22:00 Amino Acids 0 ml @ 0 mls/hr PER PHARMACY IV 10/10/24 19:00 UNV Enteral Nutritional Formula 1,000 ml 40ML/HR GT 10/10/24 21:15 10/18/24 05:44 1,000 ML Daptomycin 750 mg/ Sodium Chloride 50 ml @ 100 mls/hr DAILY IV 10/14/24 10:00 10/23/24 10:09 100 MLS/HR Ceftaroline Fosamil 600 mg/ Sodium Chloride 250 ml @ 250 mls/hr Q8H IV 10/19/24 18:00 10/23/24 10:12 250 MLS/HR Pantoprazole Sodium 40 mg DAILY IV 10/21/24 08:30 10/23/24 10:10 40 MG Bumetanide 12.5 mg/Miscellaneous 50 ml @ 2 mls/hr Q24H IV 10/22/24 19:45 10/22/24 23:03 2 MLS/HR Potassium Chloride 100 ml @ 50 mls/hr Q2H IV 10/23/24 09:15 10/23/24 13:14 Examination General: RASS -3, afebrile, mucosae are moist Cardiovascular: Normal S1 and S2. No murmurs, gallops or rubs Respiratory: Mechanically assisted ventilation, equal bilateral airway entree. Clear lung sounds on auscultation Abdomen: Soft, nontender, no organomegaly, sluggish bowel sounds MSK/skin: Mobilization of limbs cannot be evaluated. Skin is dry and warm. bilateral pedal edema +, S/P rt toe debridement and covered with dressing. Neurological: Orientation cannot be assessed. No apparent motor no sensitive deficits. Pupils are isocoric and reactive laboratory and microbiology Laboratory Tests 10/23/24 02:50 Test 10/23/24 02:50 Range/Units Serum Glucose 104 74-106 mg/dL Microbiology Date/Time Source Procedure Growth Status 10/20/24 16:30 Blood Blood Culture - Preliminary NO GROWTH AFTER 48 HOURS OF INCUBATION. Resulted 10/16/24 17:40 Catheter Tip Aerobic Culture - Final Complete 10/16/24 09:39 Penis Aerobic Culture - Final Methicillin Resistant S.aureus Presumptive Hellen tropicalis Complete 10/14/24 22:10 Voided Urine Urine Culture - Final Presumptive Hellen tropicalis Complete 10/10/24 16:45 Sputum Expectorated Sputum Gram Stain - Final Complete 10/10/24 16:45 Sputum Expectorated Sputum Respiratory Culture - Final Complete Labs and/or images reviewed: Labs reviewed by me, Image(s) reviewed by me Problem List/Assessment/Plan Problem List/Assessment/Plan Anemia, possibly related to chronic disease with MCV 86.5 JAYLEEN likely VMN on CKD Acute hypoxic respiratory failure, on mechanical ventilation. Plans to extubate today Proctitis MRSA bacteremia Septic emboli due to above Acute left MCA stroke Infective endocarditis with mitral valve vegetations acute complicated cystitis psoas abscess? Sepsis Ruled out ileus Constipation with moderate to severe colonic volume of stool Plan: Held lactulose owing to diarrhea Continue conservative management, observation Stool occult blood negative IV Protonix b.i.d. Already on lactulose Pending MRI lower extremity Orthopedic surgeon on board Continue antibiotics Thank you so much for the opportunity to consult on your patient. GI team will follow the patient. In case of any questions or concerns please feel free to reach out. Plan discussed with Dr. Saunders Plan discussed with: Other (RN) Dietary Evaluation Review Comments: 1) Add cardiac restriction to 60g CCHO diet 2) Initiate Glucerna qd. Encourage optimal PO intake 3) Follow-up with urology and surgery 4) Follow-up with social services analyst r/t methamphetamine abuse 5) Continue to monitor I&O, labs, and skin integrity Expected Outcomes/Goals: 1) appetite and labs to improve 2) wound to improve 3) f/u in 3-5 days NICOLETTE ROSADO RESIDENT Oct 23, 2024 12:19
[2024-10-23] MEDS: POTASSIUM CHL 20MEQ/100ML 100 ML IV SCH (12:34)
[2024-10-23 12:56] LABS: Base Excess 6.5 mmol/L (-2.0-3.0)
--- NOTE | 2024-10-23 15:47 | DVHPN2 ---
Progress Note Date Seen: Oct 23, 2024 Medical Necessity Reason Pt with a Central, PICC or Fol: No Subjective Patient reports: No new complaints Other Systems: Patient seen and examined by myself today in follow-up Objective vital signs Vital Sign Date Time Temp Pulse Resp B/P (MAP) Pulse Ox O2 Delivery O2 Flow Rate FiO2 10/23/24 15:41 129/74 10/23/24 15:00 89 13 97 10/23/24 14:00 30 10/23/24 14:00 Mechanical Ventilator+ 10/23/24 12:15 10.0 10/23/24 12:00 98.0 98.0 Total Intake and Output 10/22/24 10/22/24 10/23/24 14:59 22:59 06:59 Intake Total 576.399 ml 788.789 ml 1017.095 ml Output Total 2501 ml 2800 ml Balance 576.399 ml -1712.211 ml -1782.905 ml medications Current Medications Medications Dose Ordered Sig/Dion Route Start Time Stop Time Status Last Admin Dose Admin Acetaminophen [address] 10/10/24 10:00 10/10/24 15:18 650 MG Midazolam HCl 50 ml @ 1 mls/hr Q24H IV 10/10/24 17:15 10/22/24 23:04 6 MLS/HR Fentanyl Citrate 250 ml @ 2.5 mls/hr Q24H IV 10/10/24 17:15 10/22/24 23:18 15 MLS/HR Propofol 100 ml @ 2.496 mls/ hr Q24H IV 10/10/24 17:15 Norepinephrine Bitartrate 250 ml @ 3.75 mls/hr Q24H IV 10/10/24 17:45 10/15/24 04:04 3.75 MLS/HR Diagnostic Test (Pha) 1 strip Q6HR 10/11/24 00:00 10/23/24 12:36 1 STRIP Insulin Human Regular FOLLOW SLIDING SCALE Q6HR SC 10/11/24 00:00 10/23/24 12:44 4 UNITS Dextrose 50 ml UD IV 10/10/24 22:00 Amino Acids 0 ml @ 0 mls/hr PER PHARMACY IV 10/10/24 19:00 UNV Enteral Nutritional Formula 1,000 ml 40ML/HR GT 10/10/24 21:15 10/18/24 05:44 1,000 ML Daptomycin 750 mg/ Sodium Chloride 50 ml @ 100 mls/hr DAILY IV 10/14/24 10:00 10/23/24 10:09 100 MLS/HR Ceftaroline Fosamil 600 mg/ Sodium Chloride 250 ml @ 250 mls/hr Q8H IV 10/19/24 18:00 10/23/24 10:12 250 MLS/HR Pantoprazole Sodium 40 mg DAILY IV 10/21/24 08:30 10/23/24 10:10 40 MG Bumetanide 12.5 mg/Miscellaneous 50 ml @ 2 mls/hr Q24H IV 10/22/24 19:45 10/23/24 15:41 2 MLS/HR Examination: LUNGS:Normal, CVS:Normal, MSK:Abnormal laboratory and microbiology Laboratory Tests 10/23/24 02:50 Test 10/23/24 02:50 Range/Units Serum Glucose 104 74-106 mg/dL Microbiology Date/Time Source Procedure Growth Status 10/20/24 16:30 Blood Blood Culture - Preliminary NO GROWTH AFTER 48 HOURS OF INCUBATION. Resulted 10/16/24 17:40 Catheter Tip Aerobic Culture - Final Complete 10/16/24 09:39 Penis Aerobic Culture - Final Methicillin Resistant S.aureus Presumptive Hellen tropicalis Complete 10/14/24 22:10 Voided Urine Urine Culture - Final Presumptive Hellen tropicalis Complete 10/10/24 16:45 Sputum Expectorated Sputum Gram Stain - Final Complete 10/10/24 16:45 Sputum Expectorated Sputum Respiratory Culture - Final Complete Problem List/Assessment/Plan Problem List/Assessment/Plan Acute kidney injury multifactorial hemodynamically mediated, FeNa < 1% Acute respiratory failure, extubated Vancomycin nephrotoxicity Septic shock Acute CVA MRSA bacteremia Bacterial endocarditis Lower extremity MRSA wound infection BPH status post TURP with indwelling Kan catheter History of methamphetamine abuse Hypoalbuminemia Metabolic acidosis Hypernatremia due to insensible water loss Recommendations Kidney function continues to improve slowly Increase urine output IVF with bicarb Discontinue Bumex drip KCL replacement Kan catheter Strict I&Os Discontinue vancomycin Albumin 25% IV piggyback IV pressors for blood pressure support We will continue to follow Discussed my plan of care with the patient, his mother and the primary nurse at the bedside Plan discussed with: Patient Dietary Evaluation Review Comments: 1) Add cardiac restriction to 60g CCHO diet 2) Initiate Glucerna qd. Encourage optimal PO intake 3) Follow-up with urology and surgery 4) Follow-up with social sciences instructor r/t methamphetamine abuse 5) Continue to monitor I&O, labs, and skin integrity Expected Outcomes/Goals: 1) appetite and labs to improve 2) wound to improve 3) f/u in 3-5 days NATHALIA JOSEPH MD Oct 23, 2024 15:47
[2024-10-23] MEDS: LORazepam 2MG/ML-1ML VIAL IV PRN (16:52)
--- NOTE | 2024-10-23 17:34 | DVHPNRES ---
Progress Note Date Seen: Oct 23, 2024 Resident Creating Document: GAURI IGNACIO RESIDENT Medical Necessity Reason Pt with a Central, PICC or Fol: No Subjective Review of Systems Patient is a 39-year-old male with past medical history of diabetes mellitus, MRSA of the urine, hyperlipidemia, and methamphetamine abuse presented to [facility] ED with complaint of fever. Patient reports he has been experiencing fever, associated with generalized weakness, abdominal pain, presents with Kan catheter in place due to recent prostate surgery. Patient was seen and evaluated in the ED, laboratory data shows WBC 6.1, hemoglobin 9.5, hematocrit 28.7, platelets 203, sodium 130, potassium 4.0, BUN 23, creatinine 1.12, glucose 382, calcium 8.5, albumin 3.1, blood pressure 110/70, heart rate 136 trending down to 96, temperature 103.2 F trending down to 97.6 F, O2 saturation 95% on room air. Abdomen/pelvis CT revealing evidence of left sacroiliitis with gas and fluid extending into left pelvic muscles likely representing abscess; rectal wall thickening correlate for symptoms of proctitis; Kan catheter decompressed urinary bladder with wall thickening; hypodense appearance of the mildly enlarged prostate, cystitis and prostatitis or possible. Patient was started on IV antibiotic regimen vancomycin, Patient was seen and examined in the ICU on the bedside. Extubated today and now on nasal canula. No sign of respiratory distress or stridor. Patient is restless and family was on the bedside.Follow blood culture X2 were negative for any growth. Patient had an TIM on 10/14/24 and found mitral valve vegetation with normal ejection fraction. s/p debridement of right foot ulcer. MRI of the head without contrast demonstrated large area of diffusion restriction of the left posterior temporal lobe and left parietal lobe, small area of punctate infarction along the right posterior frontal lobe to parietal lobe and imaging pattern may be compatible with embolic phenomenon. CT abdomen pelvis on 0 01/29 showed foci of air and the left psoas muscle with erosive changes of the left SI joint, osteomyelitis/ septic arthritis and left psoas sepsis. Objective vital signs Vital Sign Date Time Temp Pulse Resp B/P (MAP) Pulse Ox O2 Delivery O2 Flow Rate FiO2 10/23/24 17:00 94 14 129/81 (97) 97 10/23/24 16:37 Nasal Cannula* 1 24 10/23/24 16:00 98.2 98.2 Total Intake and Output 10/22/24 10/22/24 10/23/24 15:00 23:00 07:00 Intake Total 601.409 ml 787.789 ml 1000.853 ml Output Total 2501 ml 2800 ml Balance 601.409 ml -1713.211 ml -1799.147 ml medications Current Medications Medications Dose Ordered Sig/Dion Route Start Time Stop Time Status Last Admin Dose Admin Acetaminophen 650 mg Q6HP PRN [place] 10/10/24 10:00 10/10/24 15:18 650 MG Midazolam HCl 50 ml @ 1 mls/hr Q24H IV 10/10/24 17:15 10/22/24 23:04 6 MLS/HR Fentanyl Citrate 250 ml @ 2.5 mls/hr Q24H IV 10/10/24 17:15 10/22/24 23:18 15 MLS/HR Propofol 100 ml @ 2.496 mls/ hr Q24H IV 10/10/24 17:15 Norepinephrine Bitartrate 250 ml @ 3.75 mls/hr Q24H IV 10/10/24 17:45 10/15/24 04:04 3.75 MLS/HR Diagnostic Test (Pha) 1 strip Q6HR 10/11/24 00:00 10/23/24 12:36 1 STRIP Insulin Human Regular FOLLOW SLIDING SCALE Q6HR SC 10/11/24 00:00 10/23/24 12:44 4 UNITS Dextrose 50 ml UD IV 10/10/24 22:00 Amino Acids 0 ml @ 0 mls/hr PER PHARMACY IV 10/10/24 19:00 UNV Enteral Nutritional Formula 1,000 ml 40ML/HR GT 10/10/24 21:15 10/18/24 05:44 1,000 ML Daptomycin 750 mg/ Sodium Chloride 50 ml @ 100 mls/hr DAILY IV 10/14/24 10:00 10/23/24 10:09 100 MLS/HR Ceftaroline Fosamil 600 mg/ Sodium Chloride 250 ml @ 250 mls/hr Q8H IV 10/19/24 18:00 10/23/24 10:12 250 MLS/HR Pantoprazole Sodium 40 mg DAILY IV 10/21/24 08:30 10/23/24 10:10 40 MG Lorazepam 1 mg Q4HP PRN IV 10/23/24 16:30 10/23/24 16:52 1 MG Examination Physical examination: General Appearance: Alert, Oriented X1, noncooperative, No acute distress HEENT: Atraumatic, PERRLA, EOMI, Mucous membrane moist/pink Respiratory: Clear to auscultation, Normal air movement Cardiovascular: Regular rate, Normal S1, Normal S2, No murmurs, no chest wall tenderness Abdominal: Normal bowel sounds, Soft, No tenderness, No hepatospenomegaly, No masses Extremities: Mobilization of limbs cannot be evaluated. Skin is dry and warm. bilateral pedal edema +, S/P rt toe debridement and covered with dressing. Neuro: Strength at 5/5 X4 ext, Normal tone, Sensation intact, Cranial nerves 3- 12 NL, Reflexes 2+ Psych/Mental Status: Could not be assessed. laboratory and microbiology Laboratory Tests 10/23/24 02:50 Test 10/23/24 02:50 Range/Units Serum Glucose 104 74-106 mg/dL Microbiology Date/Time Source Procedure Growth Status 10/20/24 16:30 Blood Blood Culture - Preliminary NO GROWTH AFTER 72 HOURS OF INCUBATION. Resulted 10/16/24 17:40 Catheter Tip Aerobic Culture - Final Complete 10/16/24 09:39 Penis Aerobic Culture - Final Methicillin Resistant S.aureus Presumptive Hellen tropicalis Complete 10/14/24 22:10 Voided Urine Urine Culture - Final Presumptive Hellen tropicalis Complete 10/10/24 16:45 Sputum Expectorated Sputum Gram Stain - Final Complete 10/10/24 16:45 Sputum Expectorated Sputum Respiratory Culture - Final Complete Labs and/or images reviewed: Labs reviewed by me, Image(s) reviewed by me Problem List/Assessment/Plan Problem List/Assessment/Plan Assessment and plan: NEURO: Acute metabolic encephalopathy secondary to ischemic stroke Possible septic emboli due to persistent MRSA bacteremia History of Bipolar disorder RASS score: -1 - CT head without contrast demonstrated acute left MCA stroke - MRI of the head without contrast demonstrated large area of diffusion restriction of the left posterior temporal lobe and left parietal lobe, small area of punctate infarction along the right posterior frontal lobe to parietal lobe and imaging pattern may be compatible with embolic phenomenon. - continue aspirin 81 mg and Plavix 75 mg daily CARDIOVASCULAR: Acute infective endocarditis of mitral valve Possible chronic diastolic heart failure with preserved ejection fraction - TIM on 10/14/2024 demonstrated mitral valve, structurally normal, anterior leaflet has a 0.8 cm vegetation with a stalk. 0.8 X 0.4 cm, no significant MR or abscess is noted - TTE revealed EF 45-50%, anteroseptal hypokinesis, biatrial enlargement - Infectious disease on board - Continue IV ceftaroline and daptomycin PULMONARY: Rt sided opacity due to possible mucus plug/volume overload Lt sided pleural effusion - IR mentioned not enough fluid for Lt thoracentesis. GASTROENTEROLOGY: Ruled out ileus Moderate to Severe colonic volume of stool Acute watery diarrhoea - Stop Lactulose and miralax. GENITOURINARY: JAYLEEN secondary to vancomycin toxicity Possible prostatic abscess, history of recent prostate surgery Acute complicated cystitis - CT abdomen pelvis on 12/30 showed foci of air and the left psoas muscle with erosive changes of the left SI joint, osteomyelitis/ septic arthritis and left psoas abscess - pending MRI of the pelvis - IV Bumex drip - Continue IV ceftaroline and daptomycin ENDOCRINE: Type 2 diabetes mellitus, hemoglobin A1c 13.2 Diabetic foot ulcer of right toe - CT right foot without contrast showed erosive changes involved proximal and distal phalanx with involvement of IP joint, possible osteomyelitis/septic arthritis, deep 1st digit plantar ulceration - S/P I &D of rt foot - sliding scale of insulin METABOLIC: Moderate Protein calorie malnutrition, albumin 2.1 Hyperphosphatemia secondary to JAYLEEN Hypomagnesemia Metabolic acidosis due to JAYLEEN HEME: Acute on Chronic normocytic anemia secondary to dilutional versus anticoagulant use - 1 unit PRBC given - Hold DVT prophylaxis - Monitor H&H INFECTIOUS DISEASE: 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 Findings are concerning for acute osteomyelitis/septic arthritis with left psoas muscle abscess - Pending MRI of lumbosacral spine DIET: Tube feeding DVT prophylax: SCD GI prophylaxis: Protonix Bowel regimen: Code status: Full code LINES/DRAINS/ACCESS: ETT: Extubated on 10/23/2024 IV access: Left IJ placed on 10/16/24 Drips: Bumex Kan catheter: Placed on 10/02/2024 DISPOSITION: ICU Patient's status discussed with mom, resident care associate time spent more than 83 minutes, including CPAP trial, patient care, chart review, and updating the family. Excluding any procedures. Plan discussed with Dr. Galeano Plan discussed with: Other (Linsey, RN) My Orders My Orders Orders - GAURI IGNACIO Procedure Category Date Status Time Cpap Trial For Am ORDERS 10/22/24 Transmitted 17:41 Chest Portable XY 10/23/24 Resulted 04:00 Abg W/ Co-Ox RT 10/23/24 Logged 04:00 Dietary Evaluation Review Comments: 1) Add cardiac restriction to 60g CCHO diet 2) Initiate Glucerna qd. Encourage optimal PO intake 3) Follow-up with urology and surgery 4) Follow-up with social staff worker r/t methamphetamine abuse 5) Continue to monitor I&O, labs, and skin integrity Expected Outcomes/Goals: 1) appetite and labs to improve 2) wound to improve 3) f/u in 3-5 days Date of Service: Oct 23, 2024 Billing Provider: DEE DEE GALEANO MD Common Visit Codes: [id number] CARE 30-74 MIN, [id number] CARE-EACH +30MIN GAURI IGNACIO Oct 23, 2024 17:34 DEE DEE GALEANO MD Oct 25, 2024 12:37
--- NOTE | 2024-10-23 17:46 | DVHPN2 ---
Consult Progress Note Date Seen: Oct 23, 2024 Subjective Other Systems: Patient is status post extubation, on minimal nasal cannula oxygen, great recovery from mechanical ventilation, much more alert awake and conversing. Behavioral agitation on Haldol, neurologist closely following and blood culture -ve for MRSA x 2. Objective vital signs Vital Sign Date Time Temp Pulse Resp B/P (MAP) Pulse Ox O2 Delivery O2 Flow Rate FiO2 10/23/24 17:00 94 14 129/81 (97) 97 10/23/24 16:37 Nasal Cannula* 1 24 10/23/24 16:00 98.2 98.2 Total Intake and Output 10/22/24 10/22/24 10/23/24 15:00 23:00 07:00 Intake Total 601.409 ml 787.789 ml 1000.853 ml Output Total 2501 ml 2800 ml Balance 601.409 ml -1713.211 ml -1799.147 ml GEN: Patent s/p extubation on cool mist oxygen. HEENT: NC/AT; MMM. CV: RRR, regular rhythm LUNGS: CTAB, no w/r/c. ABD: Soft, NT/ND, NBS, no masses or organomegaly. EXT: skin Warm, well perfused. no rashes. No clubbing, cyanosis, or edema. Right toe wrapped in gauze, chronic ulcer, checked the wounds in the sacrum and the toe unremarkable. NEURO: Alert, Awake, Orientation limited examination. will review in the AM. medications Current Medications Medications Dose Ordered Sig/Dion Route Start Time Stop Time Status Last Admin Dose Admin Acetaminophen 650 mg Q6HP PRN LA 10/10/24 10:00 10/10/24 15:18 650 MG Midazolam HCl 50 ml @ 1 mls/hr Q24H IV 10/10/24 17:15 10/22/24 23:04 6 MLS/HR Fentanyl Citrate 250 ml @ 2.5 mls/hr Q24H IV 10/10/24 17:15 10/22/24 23:18 15 MLS/HR Propofol 100 ml @ 2.496 mls/ hr Q24H IV 10/10/24 17:15 Norepinephrine Bitartrate 250 ml @ 3.75 mls/hr Q24H IV 10/10/24 17:45 10/15/24 04:04 3.75 MLS/HR Diagnostic Test (Pha) 1 strip Q6HR 10/11/24 00:00 10/23/24 12:36 1 STRIP Insulin Human Regular FOLLOW SLIDING SCALE Q6HR SC 10/11/24 00:00 10/23/24 12:44 4 UNITS Dextrose 50 ml UD IV 10/10/24 22:00 Amino Acids 0 ml @ 0 mls/hr PER PHARMACY IV 10/10/24 19:00 UNV Enteral Nutritional Formula 1,000 ml 40ML/HR GT 10/10/24 21:15 10/18/24 05:44 1,000 ML Daptomycin 750 mg/ Sodium Chloride 50 ml @ 100 mls/hr DAILY IV 10/14/24 10:00 10/23/24 10:09 100 MLS/HR Ceftaroline Fosamil 600 mg/ Sodium Chloride 250 ml @ 250 mls/hr Q8H IV 10/19/24 18:00 10/23/24 10:12 250 MLS/HR Pantoprazole Sodium 40 mg DAILY IV 10/21/24 08:30 10/23/24 10:10 40 MG Lorazepam 1 mg Q4HP PRN IV 10/23/24 16:30 10/23/24 16:52 1 MG laboratory and microbiology Laboratory Tests 10/23/24 02:50 Test 10/23/24 02:50 Range/Units Serum Glucose 104 74-106 mg/dL Problem List/Assessment/Plan Problem List/Assessment/Plan Mr. Velazquez is a 39-year-old male with a complex medical history including insulin-dependent diabetes mellitus, GERD, bipolar disorder, schizophrenia, chronic diabetic ulcers, dyslipidemia, MRSA urinary infection, BPH, and methamphetamine abuse [place] [facility] [place] with generalized weakness, fever, and abdominal discomfort. He was intubated and chemically sedated for sepsis and persistent MRSA bacteremia, requiring low-dose vasopressor support. Imaging revealed a pelvic abscess and urinalysis suggested a UTI. Despite treatment, blood cultures remained positive for MRSA through 10/09. Cardiology was consulted for possible subacute endocarditis, with plans for TIM pending improvement in mental status. ECG showed sinus tachycardia, inflammatory markers were elevated, and infectious workup for HIV, hepatitis B/C, and syphilis was negative. Recurrent MRSA bacteremia with infective endocarditis with most likely source of intrapelvic collection with foci of air at the left psoas muscle with erosive changes at the left anterior sacroiliac joint concerning for acute osteomyelitis/septic arthritis with left psoas muscle abscess. Status post ceftriaxone, linezolid, metronidazole, vancomycin, was change to daptomycin and ceftaroline on respectively 10/12/2024 and 10/13/2024. Assessment: #Persistent bacteremia with subacute endocarditis TIM found MR with 0.8 cm vegetations, improved. #CVA, left MCA territory, possible infectious cardioembolic source: MRI reveals a large area of restricted diffusion in the left posterior temporal and parietal lobes, along with small punctate infarcts in the right posterior frontal to parietal lobes, suggesting a pattern consistent with an embolic phenomenon noted on MRI. #Erosive changes at the left anterior sacroiliac joint concerning for acute osteomyelitis/septic arthritis with #Left psoas muscle abscess. #Small to moderate amount of ascites. #Small to moderate left and small right pleural effusions. #Cephalic vein thrombus; ? infectious thromboembolism #Meningitis? Possible, HSV encephalitis possible?, unable to rule out vs thromboembolic stroke. #Abdomen-pelvic abscess: Evidence of left sacroiliitis with gas and fluid extending into left pelvic muscles likely representing abscess #UTI due to possible hematogenous seeding of bacteremia #MRSA Aspiration Pneumonia, Trace bilateral pleural effusions with adjacent atelectasis and patchy posterior bibasilar pulmonary infiltrate with MRSA #Methamphetamine abuse, unknown status of IV drug abuse #Mild aortic root enlargement. Mild TR, No pericardial effusion masses or vegetations noted on TTE #Uncontrolled DM with HbA1C 13.2 #STD panel ruled out. Plan: #Significant improvement in overall clinical picture, If patient's renal function improved might consider CT with contrast with cautions and appropriate hydration. #Continue Daptomycin (Day 11) with Ceftaroline (Day 10) for appropriate coverage for now. Will reevaluate tomorrow for further assessment of antibiotic management. #Bacteremia seems cleared, ICU level management to continue,still source control remains a pivotal factor, looking for further input from Surgical teams. #As high risk substance abuse IV antibiotic will likely need SNF placement when patient is clinically stable for discharge. #Continue ICU level care with close follow up by Primary Team. Discussed with Dr. Solano. Infectious disease team will follow up. The patient remains overall very sick with multiorgan failure, guarded prognosis. Plan discussed with: Patient, Other (primary team. ) Dietary Evaluation Review Comments: 1) Add cardiac restriction to 60g CCHO diet 2) Initiate Glucerna qd. Encourage optimal PO intake 3) Follow-up with urology and surgery 4) Follow-up with social media developer r/t methamphetamine abuse 5) Continue to monitor I&O, labs, and skin integrity Expected Outcomes/Goals: 1) appetite and labs to improve 2) wound to improve 3) f/u in 3-5 days ADAM MARTINO RESIDENT Oct 23, 2024 17:46
[2024-10-23] MEDS: ROCURONIUM 10MG/ML 10ML VIAL IV ONE (18:33)
[2024-10-23] MEDS: ETOMIDATE (2MG/ML) 20ML VIAL IV ONE (18:33)
[2024-10-24] VITALS (38 sets, daily range): BP systolic 102–145; BP diastolic 60–86; PULSE 81–105; RESP 10–29; TEMP 98.3–100.2; O2SAT 88–100
[2024-10-24] MEDS ORDERED: ACETYLCYSTEINE 10 %(100MG/ML) SOL 4ML NEB SCH (02:00)
--- NOTE | 2024-10-24 02:24 | DVH ---
CHEST RADIOGRAPH Indication: SOB Technique: 1 view Comparison: XY CHEST PORTABLE on DOS: 10/23/24, XY CHEST PORTABLE on DOS: 10/22/24, XY CHEST PORTABLE o n DOS: 10/21/24, XY CHEST PORTABLE on DOS: 10/20/24, XY CHEST PORTABLE on DOS: 10/19/24 FINDINGS: Lines and Tubes: Interval extubation. Unchanged left IJ catheter. Lungs/Pleura: Unchanged. Cardiomediastinum: Unchanged. Other: Unchanged osseous structures. IMPRESSION: 1. Interval extubation. 2. No other significant change from the previous study. Left basilar interstitial opacities and hazy attenuation.
[2024-10-24 02:35] LABS: Base Excess 9.2 mmol/L (-2.0-3.0)
[2024-10-24 04:21] LABS: Hematocrit 24.6 % (41.0-53.0); Hemoglobin 8.2 g/dL (13.5-17.5); Mean Corpuscular Hemoglobin 27.2 pg (28.0-32.0); Mean Corpuscular Volume 82.0 fL (80.0-100.0); Nucleated Red Blood Cells % 0.0 %
[2024-10-24 04:45] LABS: Alkaline Phosphatase 77 U/L (46-116); Anion Gap 12 (5-15); BUN/Creatinine Ratio 15.0 (10.0-20.0); Carbon Dioxide 31 mmol/L (20-31); Chloride 103 mmol/L (98-107); Magnesium 1.7 mg/dL (1.6-2.6); Total Protein 6.4 g/dL (5.7-8.2)
[2024-10-24 04:52] LABS: Lactic Acid w/Reflex 2.1 mmol/L (0.4-2.0)
[2024-10-24 04:53] LABS: Alanine Aminotransferase < 9 U/L (7-40); Albumin 2.1 g/dL (3.2-4.8); Bilirubin, Total 0.2 mg/dL (0.2-1.0); Blood Urea Nitrogen 28 mg/dL (9-23); Calcium 7.8 mg/dL (8.7-10.4); Glucose 145 mg/dL (74-106); Potassium 3.3 mmol/L (3.5-5.1); Sodium 146 mmol/L (136-145)
[2024-10-24] MEDS: MAGNESIUM SULFATE 1GM/100ML 100 ML IV ONE (05:23)
[2024-10-24] MEDS: POTASSIUM CHL 20MEQ/100ML 100 ML IV ONE (05:32)
[2024-10-24] MEDS: IPRATROPIUM BROM 0.5 MG/2.5ML INH SOL NEB PRN (06:09)
[2024-10-24] MEDS: ACETYLCYSTEINE 10 %(100MG/ML) SOL 4ML NEB PRN (06:09)
[2024-10-24] MEDS: ALBUTEROL SULF 2.5 MG/0.5ML(0.5%) NEB SOLN NEB PRN (06:09)
--- NOTE | 2024-10-24 07:31 | ECG ---
[facility] Test Date: 2024-10-24 Test Time: 02:06:19 Pat Name: JOLENE VILLALOBOSGDepartment: icu Room: [address] [place] [address] A Gender: M Tie Knitter Helper: Ketty : 1985 Requested By: LORI DUENAS Order Number: [id number] Reading MD: Kp Saavedra Measurements Intervals [place] Rate: 107 P: 79 NE: 203 QRS: 74 QRSD: 55 T: -24 QT: 375 QTc: 501 Interpretive Statements Sinus tachycardia Multiform ventricular premature complexes Borderline prolonged NE interval Low voltage, extremity and precordial leads Borderline ST depression, diffuse leads Minimal ST elevation, inferior leads Prolonged QT interval Baseline wander in lead(s) I,II,aVR,aVL,V1,V5 Electronically Signed On 10-27-2024 18:21:18 PDT by Kp Saavedra Please click the below link to view image of tracing.
--- NOTE | 2024-10-24 09:18 | DVH ---
Bilateral lower extremity venous duplex Clinical History: TACHCYPNEA ; pain Comparison: US RT UPPER DVT on DOS: 10/13/24, US BILAT LOWER DVT on DOS: 10/13/24, US BILAT LOWER DVT on DOS: 05/10/23, RT LOWER DVT on DOS: 04/30/21, RLDVT on DOS: 04/30/21 Technique: Duplex Doppler evaluation of the deep venous systems of both lower extremities from the common femora l veins to the popliteal veins including color Doppler and spectral/pulsed waveform analysis was perf ormed. Findings: RIGHT SIDE: The common femoral vein demonstrates appropriate compressibility and waveform variability. There is compressibility/patency of the great saphenous vein at the proximal thigh. The femoral vein demonstrates appropriate compressibility and waveform variability. The deep femoral vein demonstrates appropriate compressibility and waveform variability. The popliteal vein demonstrates appropriate compressibility and waveform variability. There is normal compressibility at the tibioperoneal trunk. LEFT SIDE: The common femoral vein demonstrates appropriate compressibility and waveform variability. There is compressibility/patency of the great saphenous vein at the proximal thigh. The femoral vein demonstrates appropriate compressibility and waveform variability. The deep femoral vein demonstrates appropriate compressibility and waveform variability. Unable to evaluate the left popliteal vein and left trifurcation due to patient's uncooperative. Impression: No right or left femoropopliteal venous thrombosis.
[2024-10-24] MEDS ORDERED: Jevity 1.2 Cal/Fiber 1 Liter GT SCH (09:30)
[2024-10-24] MEDS: BUMETANIDE 2.5mg/10ml (0.25 mg/ml) INJ IV SCH (11:00)
[2024-10-24] MEDS: BUMETANIDE INJECTION 10 ML ONE (11:05)
--- NOTE | 2024-10-24 11:30 | DVHPN2 ---
Progress Note Date Seen: Oct 24, 2024 Resident Creating Document: NICOLETTE ROSADO RESIDENT Medical Necessity Reason Pt with a Central, PICC or Fol: No Subjective Review of Systems Patient seen and examined at bedside S/p extubation Last BM this a.m., x3 soft and pasty Positive bowel sounds On 8 L of oxygen Remains on ceftaroline and daptomycin Increasing agitation Objective vital signs Vital Sign Date Time Temp Pulse Resp B/P (MAP) Pulse Ox O2 Delivery O2 Flow Rate FiO2 10/24/24 11:22 85 15 97 10/24/24 11:12 Oxymizer 7 N/A 10/24/24 07:00 102/68 (79) 10/24/24 04:00 100.2 100.2 Total Intake and Output 10/23/24 10/23/24 10/24/24 15:00 23:00 07:00 Intake Total 112.340 ml 250 ml 350 ml Output Total 2100 ml 1550 ml Balance 112.340 ml -1850 ml -1200 ml medications Current Medications Medications Dose Ordered Sig/Dion Route Start Time Stop Time Status Last Admin Dose Admin Acetaminophen 650 mg Q6HP PRN [place] 10/10/24 10:00 10/10/24 15:18 650 MG Midazolam HCl 50 ml @ 1 mls/hr Q24H IV 10/10/24 17:15 10/22/24 23:04 6 MLS/HR Fentanyl Citrate 250 ml @ 2.5 mls/hr Q24H IV 10/10/24 17:15 10/22/24 23:18 15 MLS/HR Propofol 100 ml @ 2.496 mls/ hr Q24H IV 10/10/24 17:15 Norepinephrine Bitartrate 250 ml @ 3.75 mls/hr Q24H IV 10/10/24 17:45 10/15/24 04:04 3.75 MLS/HR Diagnostic Test (Pha) 1 strip Q6HR 10/11/24 00:00 10/24/24 06:05 1 STRIP Insulin Human Regular FOLLOW SLIDING SCALE Q6HR SC 10/11/24 00:00 10/24/24 06:05 4 UNITS Dextrose 50 ml UD IV 10/10/24 22:00 Amino Acids 0 ml @ 0 mls/hr PER PHARMACY IV 10/10/24 19:00 UNV Daptomycin 750 mg/ Sodium Chloride 50 ml @ 100 mls/hr DAILY IV 10/14/24 10:00 10/24/24 10:15 100 MLS/HR Ceftaroline Fosamil 600 mg/ Sodium Chloride 250 ml @ 250 mls/hr Q8H IV 10/19/24 18:00 10/24/24 11:06 250 MLS/HR Pantoprazole Sodium 40 mg DAILY IV 10/21/24 08:30 10/24/24 10:15 40 MG Ondansetron HCl 4 mg Q4HPRN PRN IV 10/24/24 02:00 Albuterol 2.5 mg Q4HPRN PRN NEB 10/24/24 02:00 10/24/24 11:12 2.5 MG Ipratropium [place] 0.5 mg Q4HPRN PRN NEB 10/24/24 02:00 10/24/24 11:12 0.5 MG Acetylcysteine 100 mg Q4HPRN PRN [facility] 10/24/24 02:45 10/24/24 06:09 100 MG Enteral Nutritional Formula 1,000 ml 50ML/HR GT 10/24/24 09:30 Enoxaparin Sodium 40 mg DAILY SC 10/24/24 10:00 Bumetanide 2 mg BID IV 10/24/24 10:00 Examination General Appearance: Alert, Oriented X1, noncooperative, No acute distress HEENT: Atraumatic, PERRLA, EOMI, Mucous membrane moist/pink Respiratory: Clear to auscultation, Normal air movement Cardiovascular: Regular rate, Normal S1, Normal S2, No murmurs, no chest wall tenderness Abdominal: Normal bowel sounds, Soft, No tenderness, No hepatospenomegaly, No masses Extremities: Mobilization of limbs cannot be evaluated. Skin is dry and warm. bilateral pedal edema +, S/P rt toe debridement and covered with dressing. Neuro: Strength at 5/5 X4 ext, Normal tone, Sensation intact, Cranial nerves 3- 12 NL, Reflexes 2+ Psych/Mental Status: Could not be assessed. laboratory and microbiology Laboratory Tests 10/24/24 03:30 Test 10/24/24 03:30 Range/Units Serum Glucose 145 H 74-106 mg/dL Microbiology Date/Time Source Procedure Growth Status 10/20/24 16:30 Blood Blood Culture - Preliminary NO GROWTH AFTER 72 HOURS OF INCUBATION. Resulted 10/16/24 17:40 Catheter Tip Aerobic Culture - Final Complete 10/16/24 09:39 Penis Aerobic Culture - Final Methicillin Resistant S.aureus Presumptive Hellen tropicalis Complete 10/14/24 22:10 Voided Urine Urine Culture - Final Presumptive Hellen tropicalis Complete 10/10/24 16:45 Sputum Expectorated Sputum Gram Stain - Final Complete 10/10/24 16:45 Sputum Expectorated Sputum Respiratory Culture - Final Complete Labs and/or images reviewed: Labs reviewed by me, Image(s) reviewed by me Problem List/Assessment/Plan Problem List/Assessment/Plan Anemia, possibly related to chronic disease with MCV 86.5 JAYLEEN likely VMN on CKD Acute hypoxic respiratory failure, on mechanical ventilation. Plans to extubate today Proctitis MRSA bacteremia Septic emboli due to above Acute left MCA stroke Infective endocarditis with mitral valve vegetations acute complicated cystitis psoas abscess? Sepsis Ruled out ileus Constipation with moderate to severe colonic volume of stool Plan: Held lactulose owing to diarrhea Continue conservative management, observation Stool occult blood negative IV Protonix b.i.d. Already on lactulose Pending MRI lower extremity Orthopedic surgeon on board Continue antibiotics Thank you so much for the opportunity to consult on your patient. GI team will follow the patient. In case of any questions or concerns please feel free to reach out. Plan discussed with Dr. Saunders Plan discussed with: Other (RN) Dietary Evaluation Review Comments: 1) Add cardiac restriction to 60g CCHO diet 2) Initiate Glucerna qd. Encourage optimal PO intake 3) Follow-up with urology and surgery 4) Follow-up with social worker aide r/t methamphetamine abuse 5) Continue to monitor I&O, labs, and skin integrity Expected Outcomes/Goals: 1) appetite and labs to improve 2) wound to improve 3) f/u in 3-5 days NICOLETTE ROSADO RESIDENT Oct 24, 2024 11:30
--- NOTE | 2024-10-24 13:25 | DVHPNRES ---
Progress Note Date Seen: Oct 24, 2024 Resident Creating Document: GAURI IGNACIO RESIDENT Medical Necessity Reason Pt with a Central, PICC or Fol: No Subjective Review of Systems Patient is a 39-year-old male with past medical history of diabetes mellitus, MRSA of the urine, hyperlipidemia, and methamphetamine abuse presented to [facility] ED with complaint of fever. Patient reports he has been experiencing fever, associated with generalized weakness, abdominal pain, presents with Kan catheter in place due to recent prostate surgery. Patient was seen and evaluated in the ED, laboratory data shows WBC 6.1, hemoglobin 9.5, hematocrit 28.7, platelets 203, sodium 130, potassium 4.0, BUN 23, creatinine 1.12, glucose 382, calcium 8.5, albumin 3.1, blood pressure 110/70, heart rate 136 trending down to 96, temperature 103.2 F trending down to 97.6 F, O2 saturation 95% on room air. Abdomen/pelvis CT revealing evidence of left sacroiliitis with gas and fluid extending into left pelvic muscles likely representing abscess; rectal wall thickening correlate for symptoms of proctitis; Kan catheter decompressed urinary bladder with wall thickening; hypodense appearance of the mildly enlarged prostate, cystitis and prostatitis or possible. Patient was started on IV antibiotic regimen vancomycin, Patient was seen and examined in the ICU on the bedside. S/P extubation and on oxymizer 8L . Patient is restless and bed side sitter . Pending swallow evaluation. Follow blood culture X2 were negative for any growth. Patient had an TIM on 10/14/24 and found mitral valve vegetation with normal ejection fraction. s/p debridement of right foot ulcer. MRI of the head without contrast demonstrated large area of diffusion restriction of the left posterior temporal lobe and left parietal lobe, small area of punctate infarction along the right posterior frontal lobe to parietal lobe and imaging pattern may be compatible with embolic phenomenon. CT abdomen pelvis on 0 01/29 showed foci of air and the left psoas muscle with erosive changes of the left SI joint, osteomyelitis/ septic arthritis and left psoas sepsis. Objective vital signs Vital Sign Date Time Temp Pulse Resp B/P (MAP) Pulse Ox O2 Delivery O2 Flow Rate FiO2 10/24/24 12:00 12 95 Oxymizer 9 N/A 10/24/24 12:00 91 10/24/24 11:00 118/79 10/24/24 04:00 100.2 100.2 Total Intake and Output 10/23/24 10/23/24 10/24/24 15:00 23:00 07:00 Intake Total 112.340 ml 250 ml 350 ml Output Total 2100 ml 1550 ml Balance 112.340 ml -1850 ml -1200 ml medications Current Medications Medications Dose Ordered Sig/Dion Route Start Time Stop Time Status Last Admin Dose Admin Acetaminophen 650 mg Q6HP PRN AL 10/10/24 10:00 10/10/24 15:18 650 MG Midazolam HCl 50 ml @ 1 mls/hr Q24H IV 10/10/24 17:15 10/22/24 23:04 6 MLS/HR Fentanyl Citrate 250 ml @ 2.5 mls/hr Q24H IV 10/10/24 17:15 10/22/24 23:18 15 MLS/HR Propofol 100 ml @ 2.496 mls/ hr Q24H IV 10/10/24 17:15 Norepinephrine Bitartrate 250 ml @ 3.75 mls/hr Q24H IV 10/10/24 17:45 10/15/24 04:04 3.75 MLS/HR Diagnostic Test (Pha) 1 strip Q6HR 10/11/24 00:00 10/24/24 06:05 1 STRIP Insulin Human Regular FOLLOW SLIDING SCALE Q6HR SC 10/11/24 00:00 10/24/24 06:05 4 UNITS Dextrose 50 ml UD IV 10/10/24 22:00 Amino Acids 0 ml @ 0 mls/hr PER PHARMACY IV 10/10/24 19:00 UNV Daptomycin 750 mg/ Sodium Chloride 50 ml @ 100 mls/hr DAILY IV 10/14/24 10:00 10/24/24 10:15 100 MLS/HR Ceftaroline Fosamil 600 mg/ Sodium Chloride 250 ml @ 250 mls/hr Q8H IV 10/19/24 18:00 10/24/24 11:06 250 MLS/HR Pantoprazole Sodium 40 mg DAILY IV 10/21/24 08:30 10/24/24 10:15 40 MG Ondansetron HCl 4 mg Q4HPRN PRN IV 10/24/24 02:00 Albuterol 2.5 mg Q4HPRN PRN NEB 10/24/24 02:00 10/24/24 11:12 2.5 MG Ipratropium [place] 0.5 mg Q4HPRN PRN NEB 10/24/24 02:00 10/24/24 11:12 0.5 MG Acetylcysteine 100 mg Q4HPRN PRN NEB 10/24/24 02:45 10/24/24 06:09 100 MG Enteral Nutritional Formula 1,000 ml 50ML/HR GT 10/24/24 09:30 Enoxaparin Sodium 40 mg DAILY SC 10/24/24 10:00 Bumetanide 2 mg BID IV 10/24/24 10:00 10/24/24 11:00 2 MG Examination Physical examination: General Appearance: Alert, Oriented X1, noncooperative, No acute distress HEENT: Atraumatic, PERRLA, EOMI, Mucous membrane moist/pink Respiratory: Clear to auscultation, Normal air movement Cardiovascular: Regular rate, Normal S1, Normal S2, No murmurs, no chest wall tenderness Abdominal: Normal bowel sounds, Soft, No tenderness, No hepatospenomegaly, No masses Extremities: Mobilization of limbs cannot be evaluated. Skin is dry and warm. bilateral pedal edema +, S/P rt toe debridement and covered with dressing. Neuro: Strength at 5/5 X4 ext, Normal tone, Sensation intact, Cranial nerves 3- 12 NL, Reflexes 2+ Psych/Mental Status: Could not be assessed. laboratory and microbiology Laboratory Tests 10/24/24 03:30 Test 10/24/24 03:30 Range/Units Serum Glucose 145 H 74-106 mg/dL Microbiology Date/Time Source Procedure Growth Status 10/20/24 16:30 Blood Blood Culture - Preliminary NO GROWTH AFTER 72 HOURS OF INCUBATION. Resulted 10/16/24 17:40 Catheter Tip Aerobic Culture - Final Complete 10/16/24 09:39 Penis Aerobic Culture - Final Methicillin Resistant S.aureus Presumptive Hellen tropicalis Complete 10/14/24 22:10 Voided Urine Urine Culture - Final Presumptive Hellen tropicalis Complete 10/10/24 16:45 Sputum Expectorated Sputum Gram Stain - Final Complete 10/10/24 16:45 Sputum Expectorated Sputum Respiratory Culture - Final Complete Labs and/or images reviewed: Labs reviewed by me, Image(s) reviewed by me Problem List/Assessment/Plan Problem List/Assessment/Plan Assessment and plan: NEURO: Acute metabolic encephalopathy secondary to ischemic stroke Possible septic emboli due to persistent MRSA bacteremia History of Bipolar disorder RASS score: -1 - CT head without contrast demonstrated acute left MCA stroke - MRI of the head without contrast demonstrated large area of diffusion restriction of the left posterior temporal lobe and left parietal lobe, small area of punctate infarction along the right posterior frontal lobe to parietal lobe and imaging pattern may be compatible with embolic phenomenon. - continue aspirin 81 mg and Plavix 75 mg daily CARDIOVASCULAR: Acute infective endocarditis of mitral valve Possible chronic diastolic heart failure with preserved ejection fraction - TIM on 10/14/2024 demonstrated mitral valve, structurally normal, anterior leaflet has a 0.8 cm vegetation with a stalk. 0.8 X 0.4 cm, no significant MR or abscess is noted - TTE revealed EF 45-50%, anteroseptal hypokinesis, biatrial enlargement - Infectious disease on board - Continue IV ceftaroline and daptomycin PULMONARY: Rt sided opacity due to possible mucus plug/volume overload Lt sided pleural effusion - IR mentioned not enough fluid for Lt thoracentesis. GASTROENTEROLOGY: Ruled out ileus Moderate to Severe colonic volume of stool Acute watery diarrhoea - Stop Lactulose and miralax. GENITOURINARY: JAYLEEN secondary to vancomycin toxicity Possible prostatic abscess, history of recent prostate surgery Acute complicated cystitis - CT abdomen pelvis on 0 12/30 showed foci of air and the left psoas muscle with erosive changes of the left SI joint, osteomyelitis/ septic arthritis and left psoas abscess - pending MRI of the pelvis - IV Bumex 2 mg bid. - Continue IV ceftaroline and daptomycin ENDOCRINE: Type 2 diabetes mellitus, hemoglobin A1c 13.2 Diabetic foot ulcer of right toe - CT right foot without contrast showed erosive changes involved proximal and distal phalanx with involvement of IP joint, possible osteomyelitis/septic arthritis, deep 1st digit plantar ulceration - S/P I &D of rt foot - sliding scale of insulin METABOLIC: Moderate Protein calorie malnutrition, albumin 2.1 Hyperphosphatemia secondary to JAYLEEN Hypomagnesemia Metabolic acidosis due to JAYLEEN HEME: Acute on Chronic normocytic anemia secondary to dilutional versus anticoagulant use - 1 unit PRBC given - Monitor H&H INFECTIOUS DISEASE: 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 Findings are concerning for acute osteomyelitis/septic arthritis with left psoas muscle abscess - Pending MRI of lumbosacral spine DIET: Tube feeding DVT prophylax: Lovenox GI prophylaxis: Protonix Bowel regimen: Code status: Full code LINES/DRAINS/ACCESS: ETT: Extubated on 10/23/2024 IV access: Left IJ placed on 10/16/24 Drips: Bumex Kan catheter: Placed on 10/02/2024 DISPOSITION: ICU Patient's status discussed with narinder congregational care pastor time spent more than 81 minutes patient care, chart review, and updating the family. Excluding any procedures. Plan discussed with Dr. Carranza Plan discussed with: Other (RN) My Orders My Orders Orders - GAURI IGNACIO Procedure Category Date Status Time Nutritional PHA 10/24/24 In Process Supplements (Jevity 09:30 Enoxaparin Sodium PHA 10/24/24 In Process (Lovenox) 10:00 Bumetanide Injection PHA 10/24/24 In Process (Bumex Injection) 10:00 Restraints Assessment CADE 10/24/24 In Process Medsurg 09:00 * Swallow Request ST 10/24/24 Transmitted 13:10 Dietary Evaluation Review Comments: 1) Add cardiac restriction to 60g CCHO diet 2) Initiate Glucerna qd. Encourage optimal PO intake 3) Follow-up with urology and surgery 4) Follow-up with executive secretary social welfare r/t methamphetamine abuse 5) Continue to monitor I&O, labs, and skin integrity Expected Outcomes/Goals: 1) appetite and labs to improve 2) wound to improve 3) f/u in 3-5 days GAURI IGNACIO Oct 24, 2024 13:25
[2024-10-24] MEDS: ENOXAPARIN SOD 40 MG/0.4 ML SYRINGE SC SCH (15:59)
--- NOTE | 2024-10-24 16:01 | DVHPN2 ---
Consult Progress Note Date Seen: Oct 24, 2024 Subjective Patient reports: Feels better Other Systems: Patient is status post extubation, on minimal nasal cannula oxygen, great recovery from mechanical ventilation, much more alert awake and conversing. Behavioral agitation on Haldol, neurologist closely following and blood culture -ve for MRSA x 2. Overnight one episode of fever. 5 times of watery diarrhea. Objective vital signs Vital Sign Date Time Temp Pulse Resp B/P (MAP) Pulse Ox O2 Delivery O2 Flow Rate FiO2 10/24/24 15:01 90 19 121/81 (94) 92 10/24/24 14:00 Oxymizer 9 N/A 10/24/24 12:01 99.5 99.5 Total Intake and Output 10/23/24 10/23/24 10/24/24 15:00 23:00 07:00 Intake Total 112.340 ml 250 ml 350 ml Output Total 2100 ml 1550 ml Balance 112.340 ml -1850 ml -1200 ml GEN: Patent s/p extubation on 6L NC oxygen. HEENT: NC/AT; MMM. CV: RRR, regular rhythm LUNGS: CTAB, no w/r/c. ABD: Soft, NT/ND, NBS, no masses or organomegaly. EXT: skin Warm, well perfused. no rashes. No clubbing, cyanosis, or edema. Right toe wrapped in gauze, chronic ulcer, checked the wounds in the sacrum and the toe unremarkable. NEURO: Alert, Awake, Orientation limited examination. medications Current Medications Medications Dose Ordered Sig/Dion Route Start Time Stop Time Status Last Admin Dose Admin Acetaminophen 650 mg Q6HP PRN [place] 10/10/24 10:00 10/10/24 15:18 650 MG Midazolam HCl 50 ml @ 1 mls/hr Q24H IV 10/10/24 17:15 10/22/24 23:04 6 MLS/HR Fentanyl Citrate 250 ml @ 2.5 mls/hr Q24H IV 10/10/24 17:15 10/22/24 23:18 15 MLS/HR Propofol 100 ml @ 2.496 mls/ hr Q24H IV 10/10/24 17:15 Norepinephrine Bitartrate 250 ml @ 3.75 mls/hr Q24H IV 10/10/24 17:45 10/15/24 04:04 3.75 MLS/HR Diagnostic Test (Pha) 1 strip Q6HR 10/11/24 00:00 10/24/24 13:29 1 STRIP Insulin Human Regular FOLLOW SLIDING SCALE Q6HR SC 10/11/24 00:00 10/24/24 06:05 4 UNITS Dextrose 50 ml UD IV 10/10/24 22:00 Amino Acids 0 ml @ 0 mls/hr PER PHARMACY IV 10/10/24 19:00 UNV Daptomycin 750 mg/ Sodium Chloride 50 ml @ 100 mls/hr DAILY IV 10/14/24 10:00 10/24/24 10:15 100 MLS/HR Ceftaroline Fosamil 600 mg/ Sodium Chloride 250 ml @ 250 mls/hr Q8H IV 10/19/24 18:00 10/24/24 11:06 250 MLS/HR Pantoprazole Sodium 40 mg DAILY IV 10/21/24 08:30 10/24/24 10:15 40 MG Ondansetron HCl 4 mg Q4HPRN PRN IV 10/24/24 02:00 Albuterol 2.5 mg Q4HPRN PRN NEB 10/24/24 02:00 10/24/24 11:12 2.5 MG Ipratropium [place] 0.5 mg Q4HPRN PRN NEB 10/24/24 02:00 10/24/24 11:12 0.5 MG Acetylcysteine 100 mg Q4HPRN PRN NEB 10/24/24 02:45 10/24/24 06:09 100 MG Enteral Nutritional Formula 1,000 ml 50ML/HR GT 10/24/24 09:30 Enoxaparin Sodium 40 mg DAILY SC 10/24/24 10:00 Bumetanide 2 mg BID IV 10/24/24 10:00 10/24/24 11:00 2 MG laboratory and microbiology Laboratory Tests 10/24/24 03:30 Test 10/24/24 03:30 Range/Units Serum Glucose 145 H 74-106 mg/dL Problem List/Assessment/Plan Problem List/Assessment/Plan Mr. Velazquez is a 39-year-old male with a complex medical history including insulin-dependent diabetes mellitus, GERD, bipolar disorder, schizophrenia, chronic diabetic ulcers, dyslipidemia, MRSA urinary infection, BPH, and methamphetamine abuse presented to [facility] on 10/02/2024 with generalized weakness, fever, and abdominal discomfort. He was intubated and chemically sedated for sepsis and persistent MRSA bacteremia, requiring low-dose vasopressor support. Imaging revealed a pelvic abscess and urinalysis suggested a UTI. Despite treatment, blood cultures remained positive for MRSA through 10/09. Cardiology was consulted for possible subacute endocarditis, with plans for TIM pending improvement in mental status. ECG showed sinus tachycardia, inflammatory markers were elevated, and infectious workup for HIV, hepatitis B/C, and syphilis was negative. Recurrent MRSA bacteremia with infective endocarditis with most likely source of intrapelvic collection with foci of air at the left psoas muscle with erosive changes at the left anterior sacroiliac joint concerning for acute osteomyelitis/septic arthritis with left psoas muscle abscess. Status post ceftriaxone, linezolid, metronidazole, vancomycin, was change to daptomycin and ceftaroline on respectively 10/12/2024 and 10/13/2024. Assessment: #Persistent bacteremia with subacute endocarditis TIM found MR with 0.8 cm vegetations, improved. #CVA, left MCA territory, possible infectious cardioembolic source: MRI reveals a large area of restricted diffusion in the left posterior temporal and parietal lobes, along with small punctate infarcts in the right posterior frontal to parietal lobes, suggesting a pattern consistent with an embolic phenomenon noted on MRI. #Erosive changes at the left anterior sacroiliac joint concerning for acute osteomyelitis/septic arthritis with #Left psoas muscle abscess. #Small to moderate amount of ascites. #Small to moderate left and small right pleural effusions. #Cephalic vein thrombus; ? infectious thromboembolism #Meningitis? Possible, HSV encephalitis possible?, unable to rule out vs thromboembolic stroke. #Abdomen-pelvic abscess: Evidence of left sacroiliitis with gas and fluid extending into left pelvic muscles likely representing abscess #UTI due to possible hematogenous seeding of bacteremia #MRSA Aspiration Pneumonia, Trace bilateral pleural effusions with adjacent atelectasis and patchy posterior bibasilar pulmonary infiltrate with MRSA #Methamphetamine abuse, unknown status of IV drug abuse #Mild aortic root enlargement. Mild TR, No pericardial effusion masses or vegetations noted on TTE #Uncontrolled DM with HbA1C 13.2 #STD panel ruled out. #Watery diarrhea, 5 times, low suspicion of d c diff. Abdominal exam unremarkable. #Mild fever 100 is lower on suspicion of infectious causes as off of sedation and agitation can be contributory. Plan: #If oxygen requirement increases consider workup for aspiration pneumonia/pneumonitis. #Yet to rule out c diff and other stool infection. If low suspicion of c diff, likely a diarrhea attributed to antibiotics. Close follow up, adequate hydration. #Significant improvement in overall clinical picture, MRI still pending, If patient's renal function improved might consider CT with contrast with cautions and appropriate hydration. #Continue Daptomycin (Day 12) with Ceftaroline (Day 11) for appropriate coverage for now. Will reevaluate tomorrow for further assessment of antibiotic management after source control. #Still source control remains a pivotal factor, looking for further input from Surgical teams. #As high risk substance abuse IV antibiotic will likely need SNF placement when patient is clinically stable for discharge. #Continue ICU level care with close follow up by Primary Team. Discussed with Dr. Solano. Infectious disease team will follow up. The patient remains overall very sick with multiorgan failure, guarded prognosis. Plan discussed with: Patient Dietary Evaluation Review Comments: 1) Add cardiac restriction to 60g CCHO diet 2) Initiate Glucerna qd. Encourage optimal PO intake 3) Follow-up with urology and surgery 4) Follow-up with social insurance adviser r/t methamphetamine abuse 5) Continue to monitor I&O, labs, and skin integrity Expected Outcomes/Goals: 1) appetite and labs to improve 2) wound to improve 3) f/u in 3-5 days ADAM MARTINO RESIDENT Oct 24, 2024 16:01
--- NOTE | 2024-10-24 18:03 | DVHPN2 ---
Progress Note Date Seen: Oct 24, 2024 Medical Necessity Reason Pt with a Central, PICC or Fol: No Subjective Patient reports: Other (Extubated) Review of Systems: Deferred Objective vital signs Vital Sign Date Time Temp Pulse Resp B/P (MAP) Pulse Ox O2 Delivery O2 Flow Rate FiO2 10/24/24 17:52 91 10/24/24 17:52 24 92 Oxymizer 9 N/A 10/24/24 16:01 124/79 (94) 10/24/24 12:01 99.5 99.5 Total Intake and Output 10/23/24 10/23/24 10/24/24 14:59 22:59 06:59 Intake Total 131.608 ml 252 ml 350 ml Output Total 2100 ml 1550 ml Balance 131.608 ml -1848 ml -1200 ml medications Current Medications Medications Dose Ordered Sig/Dion Route Start Time Stop Time Status Last Admin Dose Admin Acetaminophen 650 mg Q6HP PRN [place] 10/10/24 10:00 10/10/24 15:18 650 MG Midazolam HCl 50 ml @ 1 mls/hr Q24H IV 10/10/24 17:15 10/22/24 23:04 6 MLS/HR Norepinephrine Bitartrate 250 ml @ 3.75 mls/hr Q24H IV 10/10/24 17:45 10/15/24 04:04 3.75 MLS/HR Diagnostic Test (Pha) 1 strip Q6HR 10/11/24 00:00 10/24/24 13:29 1 STRIP Insulin Human Regular FOLLOW SLIDING SCALE Q6HR SC 10/11/24 00:00 10/24/24 06:05 4 UNITS Dextrose 50 ml UD IV 10/10/24 22:00 Amino Acids 0 ml @ 0 mls/hr PER PHARMACY IV 10/10/24 19:00 UNV Daptomycin 750 mg/ Sodium Chloride 50 ml @ 100 mls/hr DAILY IV 10/14/24 10:00 10/24/24 10:15 100 MLS/HR Ceftaroline Fosamil 600 mg/ Sodium Chloride 250 ml @ 250 mls/hr Q8H IV 10/19/24 18:00 10/24/24 11:06 250 MLS/HR Pantoprazole Sodium 40 mg DAILY IV 10/21/24 08:30 10/24/24 10:15 40 MG Ondansetron HCl 4 mg Q4HPRN PRN IV 10/24/24 02:00 Albuterol 2.5 mg Q4HPRN PRN NEB 10/24/24 02:00 10/24/24 11:12 2.5 MG Ipratropium [place] 0.5 mg Q4HPRN PRN NEB 10/24/24 02:00 10/24/24 11:12 0.5 MG Acetylcysteine 100 mg Q4HPRN PRN NEB 10/24/24 02:45 10/24/24 06:09 100 MG Enteral Nutritional Formula 1,000 ml 50ML/HR GT 10/24/24 09:30 Enoxaparin Sodium 40 mg DAILY SC 10/24/24 10:00 Bumetanide 2 mg BID IV 10/24/24 10:00 10/24/24 11:00 2 MG Examination: GENERAL:Abnormal, LUNGS:Abnormal, MSK:Abnormal, NEURO:Abnormal laboratory and microbiology Laboratory Tests 10/24/24 03:30 Test 10/24/24 03:30 Range/Units Serum Glucose 145 H 74-106 mg/dL Microbiology Date/Time Source Procedure Growth Status 10/20/24 16:30 Blood Blood Culture - Preliminary NO GROWTH AFTER 72 HOURS OF INCUBATION. Resulted 10/16/24 17:40 Catheter Tip Aerobic Culture - Final Complete 10/16/24 09:39 Penis Aerobic Culture - Final Methicillin Resistant S.aureus Presumptive Hellen tropicalis Complete 10/14/24 22:10 Voided Urine Urine Culture - Final Presumptive Hellen tropicalis Complete 10/10/24 16:45 Sputum Expectorated Sputum Gram Stain - Final Complete 10/10/24 16:45 Sputum Expectorated Sputum Respiratory Culture - Final Complete Problem List/Assessment/Plan Problem List/Assessment/Plan Acute kidney injury multifactorial hemodynamically mediated, FeNa < 1% Acute respiratory failure, patient intubated on ventilator Vancomycin nephrotoxicity Septic shock Acute CVA MRSA bacteremia Bacterial endocarditis Lower extremity MRSA wound infection BPH status post TURP with indwelling Kan catheter d History of methamphetamine abuse Hypoalbuminemia Metabolic acidosis Hypernatremia due to insensible water loss recs extubated,, on 9 L Oxymizer Bumex b.i.d. IV We will follow closely Plan discussed with: Patient Dietary Evaluation Review Comments: 1) Add cardiac restriction to 60g CCHO diet 2) Initiate Glucerna qd. Encourage optimal PO intake 3) Follow-up with urology and surgery 4) Follow-up with elementary school social worker r/t methamphetamine abuse 5) Continue to monitor I&O, labs, and skin integrity Expected Outcomes/Goals: 1) appetite and labs to improve 2) wound to improve 3) f/u in 3-5 days XUAN MATTHEWS MD Oct 24, 2024 18:03
[2024-10-24] MEDS: ONDANSETRON HCL 4 MG/2 ML VIAL IV PRN (20:08)
--- NOTE | 2024-10-24 22:21 | DVH ---
CHEST RADIOGRAPH Indication: Increase oxygen demand Technique: Single frontal view of the chest was obtained Comparison: XY CHEST PORTABLE on DOS: 10/24/24, XY CHEST PORTABLE on DOS: 10/23/24, XY CHEST PORTABLE o n DOS: 10/22/24 FINDINGS: Lines and Tubes: None Lungs: Increased airspace disease bilaterally may represent pneumonia or congestive failure Pleura: No effusion. No pneumothorax. Cardiomediastinal contours: Cardiomegaly Bones: No acute osseous abnormality. IMPRESSION: 1. Increased airspace disease bilaterally may represent pneumonia or congestive failure.
--- NOTE | 2024-10-24 23:46 | DVHPN2 ---
Progress Note - Dictate Date Seen: Oct 24, 2024 Medical Necessity Reason Pt with a Central, PICC or Fol: No Subjective Mr. Velazquez is a 39 years old gentleman with a history of diabetes, GERD, bipolar disorder, schizophrenia, chronic diabetic ulcer, he was brought to the [facility] on 10/02/2024 with a chief company of fever, the patient is also noticed to have altered mental status, in the CT brain scan showed evidence suggestive of left MCA territory acute stroke. Because of fever, worsening mental status, that is was intubated and transferred to ICU on 10/10/24 I have seen and examined the patient, talked to his nurse, he is extubated, awake, but is nonresponsive to my verbal commands He moves the arms and legs Blood culture, 10/02/2024: MRSA Blood culture, 10/03/2024: MRSA Blood culture, 10/04/2024: MRSA UDS, 10/03/2024: Amphetamine, 10/05/24: Negative Urinalysis, 10/02/2024: WBC: 30, urine leukocyte esterase: Trace WBC/HB/PLT/MCV, 10/06/2024: 5/8.7/130/82.4, 10/10/2024: 6.5/8.1/211/84.5, 10/11/2024: 6.1/7.5/176/85.9, 10/21/2024: 6/8.4/147/81.6 PTT/INR/eight six, 10/02/2024: 12.3/1.18/34.4 Na, 10/07/2024: 144 10/10/2024: 151, 10/11/2024: 148 CMP, 10/05/2024: Unremarkable BUN/CR, 10/10/2024: 22/0.96, 10/11/2024: 32/1.94 GFR, 10/10/2024: 102, 10/11/2024: 44 Liver function tests, 10/11/2024: Unremarkable HGB A1c, 05/10/2023: >14 TG/HDL/LDL/HDL, 10/07/2024: 153/87/39/9 TIM, 10/14/2024: Left Ventricle: Normal LV size and function, LVEF estimated at 60% Right Ventricle: NOrmal RV size and function Left atrium: normal Right atrium: normal RA Left atrial appendage: no thrombus noted, d Aortic valve: trileaflet valve, no severe or AI Mitral Valve: structurally normal, anterior leaflet has 0. 8 cm vegetation with stalk . 0.8 x 0.4 cm, no significant MR is noted however, no abscess noted Tricuspid Valve: mild tricuspid regurgitaiton, no TS Pulmonic Valve: structurally normal, no severe PIor PS Interatrial septum: negative color flow for R to L shunt, negative bubble study Ascending aorta: no severe plaquing Echocardiogram, 10/06/2024: Technically good study. Off axis views. Limited views obtained. There appears to be biatrial enlargement and LV enlargement. Mild aortic root enlargement. Valves appear to be structurally normal. Left ventricular function is borderline at 45 to 50% anteroseptal hypokinesis.. Normal RV function. Mild TR. No pericardial effusion masses or vegetations. CT head, 10/05/2024: Acute left MCA territory infarct in left insula/temporal operculum/temporal lobe. No hemorrhage or mass effect Sedated, 10/09/2024: 1. Interval progression in evolution of left middle cerebral artery territory infarct involving the insula / temporal are operculum/ temporal lobe with associated loss of khoury-white matter differentiation and progressively diminished parenchymal attenuation. 2. No evidence of intracranial hemorrhage, mass effect, midline shift or herniation. 3. Chronic sequelae of microangiopathy and atrophic cortical volume loss. CT abdomen/pelvis, 10/06/2024: 1. Trace bilateral pleural effusions with adjacent atelectasis and patchy posterior bibasilar pulmonary infiltrate. 2. Hepatomegaly. 3. Excess retained colorectal stool and moderate proximal mechanical small-bowel obstruction. 4. Moderate gas and Kan catheter within the urinary bladder CT abdomen/pelvis, 10/16/2024: Foci of air at the left psoas muscle with erosive changes at the left anterior sacroiliac joint. Findings are concerning for acute osteomyelitis/septic arthritis with left psoas muscle abscess. Evaluated on this study is extremely limited due to lack of IV contrast and artifact. Suggest MRI with and without IV contrast for further evaluation. If MRI cannot be performed, contrast enhanced CT is suggested. Small to moderate amount of ascites. Extensive body wall edema. Small to moderate left and small right pleural effusions. Diabetes mellitus. Constipation. CTA head, neck, 10/05/2024: 1. No evidence of acute intracranial hemorrhage, mass effect or hydrocephalus. 2. No evidence of hemodynamically significant intracranial stenosis, proximal occlusion or aneurysm. 3. No evidence of hemodynamically significant cervical stenosis or dissection MRI head, 10/15/2024: 1. Large area of diffusion restriction of the left posterior temporal lobe and left parietal lobe. 2. Small areas of punctate infarction along the right posterior frontal lobe to parietal lobe. 3. Imaging pattern may be compatible with embolic phenomenon vital signs Vital Sign Date Time Temp Pulse Resp B/P (MAP) Pulse Ox O2 Delivery O2 Flow Rate FiO2 10/24/24 22:01 98 24 94 10/24/24 22:00 Simple Mask* 9 90 10/24/24 21:45 123/80 10/24/24 20:00 98.3 98.3 Total Intake and Output 10/23/24 10/23/24 10/24/24 15:00 23:00 07:00 Intake Total 112.340 ml 250 ml 350 ml Output Total 2100 ml 1550 ml Balance 112.340 ml -1850 ml -1200 ml medications Current Medications Medications Dose Ordered Sig/Dion Route Start Time Stop Time Status Last Admin Dose Admin Acetaminophen 650 mg Q6HP PRN SD 10/10/24 10:00 10/10/24 15:18 650 MG Midazolam HCl 50 ml @ 1 mls/hr Q24H IV 10/10/24 17:15 10/22/24 23:04 6 MLS/HR Norepinephrine Bitartrate 250 ml @ 3.75 mls/hr Q24H IV 10/10/24 17:45 10/15/24 04:04 3.75 MLS/HR Diagnostic Test (Pha) 1 strip Q6HR 10/11/24 00:00 10/24/24 17:59 1 STRIP Insulin Human Regular FOLLOW SLIDING SCALE Q6HR SC 10/11/24 00:00 10/24/24 06:05 4 UNITS Dextrose 50 ml UD IV 10/10/24 22:00 Amino Acids 0 ml @ 0 mls/hr PER PHARMACY IV 10/10/24 19:00 UNV Daptomycin 750 mg/ Sodium Chloride 50 ml @ 100 mls/hr DAILY IV 10/14/24 10:00 10/24/24 10:15 100 MLS/HR Ceftaroline Fosamil 600 mg/ Sodium Chloride 250 ml @ 250 mls/hr Q8H IV 10/19/24 18:00 10/24/24 18:07 250 MLS/HR Pantoprazole Sodium 40 mg DAILY IV 10/21/24 08:30 10/24/24 10:15 40 MG Ondansetron HCl 4 mg Q4HPRN PRN IV 10/24/24 02:00 10/24/24 20:08 4 MG Albuterol 2.5 mg Q4HPRN PRN NEB 10/24/24 02:00 10/24/24 21:51 2.5 MG Ipratropium [place] 0.5 mg Q4HPRN PRN NEB 10/24/24 02:00 10/24/24 21:51 0.5 MG Acetylcysteine 100 mg Q4HPRN PRN NEB 10/24/24 02:45 10/24/24 21:51 100 MG Enteral Nutritional Formula 1,000 ml 50ML/HR GT 10/24/24 09:30 Enoxaparin Sodium 40 mg DAILY SC 10/24/24 10:00 Bumetanide 2 mg BID IV 10/24/24 10:00 10/24/24 21:45 2 MG objective General: the patient is well developed and nourished. No acute distress. Intubated MUSCULOSKELETAL EXAM: Chronic ulcer in the right big toe, a small skin lesion in the left big toe (initial consult) MENTAL STATUS: Subjective SPEECH, LANGUAGE, HIGHER CORTICAL FUNCTION: Subjective CRANIAL NERVES: Pupils are equal, round and reactive. Eyes are closed. No sign of facial weakness. Sensory and motor examination is unremarkable in bilateral trigeminal distribution SENSATION: Responsive to pain in the light touch MOTOR: Muscle tone feels normal, he moves the arms in the legs REFLEXES: Deep tendon reflexes feel symmetrical. No pathological reflexes. CEREBELLAR/COORDINATION: Deferred GAIT/STATION: deferred laboratory and microbiology Laboratory Tests 10/24/24 03:30 Test 10/24/24 03:30 Range/Units Serum Glucose 145 H 74-106 mg/dL Problem List Altered mental status, secondary to Acute stroke Metabolic encephalopathy Rule out intracranial infection Acute respiratory failure Acute stroke Sepsis with MRSA Chronic diabetic wound, status post debridement on 10/15/2024 Endocarditis Osteomyelitis Psoas abscess History of substance abuse Assessment/Plan Monitoring Supportive treatment ICU care Follow up tests MRI lumbar spine Stabilize vitals Respiratory support Aspirin 81 mg daily/300 mg SD IV antibiotics Haldol p.r.n. for agitation DVT prophylaxis/Lovenox Infectious disease on case Need to quit substance abuse Orthopedic on case More recommendation per clinical course This medical document was created using an electronic medical record system with [employer] dictation system. Although this document has been carefully reviewed, there may still be some phonetic and typographical errors. These areas are purely typographical due to imperfections of the software programs, and do not reflect any compromise in the patient's medical care. Prognosis poor Dietary Evaluation Review Comments: 1) Add cardiac restriction to 60g CCHO diet 2) Initiate Glucerna qd. Encourage optimal PO intake 3) Follow-up with urology and surgery 4) Follow-up with health social work professor r/t methamphetamine abuse 5) Continue to monitor I&O, labs, and skin integrity Expected Outcomes/Goals: 1) appetite and labs to improve 2) wound to improve 3) f/u in 3-5 days Plan discussed with: Other CALEB PAYNE MD Oct 24, 2024 23:46
[2024-10-25] VITALS (33 sets, daily range): BP systolic 124–143; BP diastolic 74–91; PULSE 84–110; RESP 17–43; TEMP 97.5–99.9; O2SAT 88–96
[2024-10-25] MEDS ORDERED: ONDANSETRON HCL 4 MG/2 ML VIAL IV SCH
[2024-10-25 03:57] LABS: Hematocrit 23.6 % (41.0-53.0); Hemoglobin 7.8 g/dL (13.5-17.5); Mean Corpuscular Hemoglobin 27.5 pg (28.0-32.0); Mean Corpuscular Volume 82.8 fL (80.0-100.0); Nucleated Red Blood Cells % 0.0 %
[2024-10-25 04:12] LABS: Chloride 105 mmol/L (98-107)
[2024-10-25 04:13] LABS: Anion Gap 14 (5-15); Carbon Dioxide 30 mmol/L (20-31)
[2024-10-25 04:18] LABS: BUN/Creatinine Ratio 14.1 (10.0-20.0)
[2024-10-25 04:20] LABS: Blood Urea Nitrogen 25 mg/dL (9-23); Calcium 7.7 mg/dL (8.7-10.4); Glucose 132 mg/dL (74-106); Potassium 2.7 mmol/L (3.5-5.1); Sodium 149 mmol/L (136-145)
[2024-10-25] MEDS: POTASSIUM CHL 20MEQ/100ML 100 ML IV SCH (05:21)
--- NOTE | 2024-10-25 05:56 | DVH ---
CHEST RADIOGRAPH Indication: s/p extubation Technique: Single frontal view of the chest was obtained COMPARISON: XY CHEST PORTABLE on DOS: 10/24/24, XY CHEST PORTABLE on DOS: 10/24/24, XY CHEST PORTABLE o n DOS: 10/23/24, XY CHEST PORTABLE on DOS: 10/22/24, US CHEST ULTRASOUND on DOS: 10/21/24 FINDINGS: Lines and Tubes: Left internal jugular central venous catheter unchanged in position. Lungs: Moderate interval progression in Multifocal consolidative appearing bilateral pulmonary airspa ce disease, worse within the lung bases and more pronounced within the right lower lung zone. No pneumothorax. Cardiomediastinal contours: Unremarkable Bones: Unremarkable IMPRESSION: 1. Moderate interval progression in multifocal consolidative appearing bilateral pulmonary airspace d isease, worse within the lung bases and more pronounced within the right lower lung zone. 2. Left IJ catheter unchanged.
--- NOTE | 2024-10-25 14:31 | DVHPN2 ---
Subjective The patient is seen and examined at bedside. Extubate, on oxymask. No change overnight. Reviewed: Care Plan Changes from previous H/P or p: No Changes General: Per HPI Eyes: No Pain, No Vision change, No Conjunctivae inflammation, No Eyelid inflammation, No Other, No Redness ENT: No Ear pain, No Ear discharge, No Nose pain, No Nose discharge, No Nose congestion, No Mouth pain, No Mouth swelling, No Throat pain, No Throat swelling, No Other Cardiovascular: No Chest Pain, No Palpitations, No Orthopnea, No Paroxysmal Noc. Dyspnea, No Edema, No Lt Headedness, No Other Respiratory: No Cough, No Dry, No Shortness of breath, No SOB with excertion, No Wheezing, No Hemoptysis, No Pleuritic Pain, No Sputum, No Other Gastrointestinal: No Nausea, No Vomiting; Abdominal Pain; No Diarrhea, No Constipation, No Melena, No Hematochezia, No Other Genitourinary: No Dysuria, No Frequency, No Incontinence, No Hematuria, No Retention; Other (Kan catheter in place) Musculoskeletal: No other, No neck pain, No shoulder pain, No arm pain, No back pain, No hand pain, No leg pain, No foot pain Skin: No Rash, No Lesions, No Jaundice, No Bruising, No Other Objective Vitals Vital Signs Date Time Temp Pulse Resp B/P (MAP) Pulse Ox O2 Delivery O2 Flow Rate FiO2 10/25/24 14:00 96 10/25/24 14:00 22 131/83 (99) 92 10/25/24 14:00 Simple Mask* 9 90 10/25/24 12:00 98.9 98.9 Intake/Output Intake and Output 10/25/24 07:00 Intake Total 1050 ml Output Total 2275 ml Balance -1225 ml Intake Oral 0 ml IV Total 1050 ml Output Urine Total 2275 ml # Bowel Movements 6 General Appearance: Alert, No acute distress HEENT: Atraumatic, PERRLA, EOMI, Mucous membr. moist/pink Neck: Supple Lungs: Clear to auscultation, Normal air movement Cardiovascular: Regular rate, Normal S1, Normal S2, No murmurs, Gallops, Rubs Abdomen: Normal bowel sounds, Soft, No tenderness Neuro: Cranial nerves 3-12 NL Psych/Mental Status: Mental status NL Medications Current Medications Medications Dose Ordered Sig/Dion Route Start Time Stop Time Status Last Admin Dose Admin Acetaminophen 650 mg Q6HP PRN [place] 10/10/24 10:00 10/10/24 15:18 650 MG Midazolam HCl 50 ml @ 1 mls/hr Q24H IV 10/10/24 17:15 10/22/24 23:04 6 MLS/HR Norepinephrine Bitartrate 250 ml @ 3.75 mls/hr Q24H IV 10/10/24 17:45 10/15/24 04:04 3.75 MLS/HR Diagnostic Test (Pha) 1 strip Q6HR 10/11/24 00:00 10/25/24 12:14 1 STRIP Insulin Human Regular FOLLOW SLIDING SCALE Q6HR SC 10/11/24 00:00 10/25/24 12:15 2 UNITS Dextrose 50 ml UD IV 10/10/24 22:00 Amino Acids 0 ml @ 0 mls/hr PER PHARMACY IV 10/10/24 19:00 UNV Daptomycin 750 mg/ Sodium Chloride 50 ml @ 100 mls/hr DAILY IV 10/14/24 10:00 10/25/24 09:51 100 MLS/HR Ceftaroline Fosamil 600 mg/ Sodium Chloride 250 ml @ 250 mls/hr Q8H IV 10/19/24 18:00 10/25/24 10:51 250 MLS/HR Pantoprazole Sodium 40 mg DAILY IV 10/21/24 08:30 10/25/24 09:50 40 MG Ondansetron HCl 4 mg Q4HPRN PRN IV 10/24/24 02:00 10/24/24 20:08 4 MG Enteral Nutritional Formula 1,000 ml 50ML/HR GT 10/24/24 09:30 Enoxaparin Sodium 40 mg DAILY SC 10/24/24 10:00 Bumetanide 2 mg BID IV 10/24/24 10:00 10/25/24 09:50 2 MG Aspirin 300 mg DAILY FL 10/25/24 10:00 Acetylcysteine 100 mg Q6HR NEB 10/25/24 18:00 UNV Albuterol 2.5 mg Q6HR NEB 10/25/24 18:00 UNV Ipratropium [place] 0.5 mg Q6HR NEB 10/25/24 18:00 UNV Laboratory Results Laboratory Tests 10/25/24 03:20 Chemistry Test 10/25/24 03:20 Calcium Level 7.7 mg/dL (8.7-10.4) L Urinalysis Test 10/14/24 10:42 10/14/24 22:10 Urine Sodium 21 mmol/L (40-220) L Urine Color Light-orange (Yellow) Urine Clarity Ex.turbid (Clear) Urine pH 5.0 (5.0-9.0) Urine Specific [place] 1.017 (1.001-1.035) Urine Protein 1+ (Negative) H Urine Ketones Negative (Negative) Urine Blood 2+ /uL (Negative) H Urine Nitrite Negative (Negative) Urine Bilirubin Negative (Negative) Urine Urobilinogen Normal mg/dL (Negative) Urine Leukocyte Esterase 3+ /uL (Negative) Urine RBC 416 /hpf (0 - 3) Urine Microscopic WBC 354 /HPF (0-3) H Urine Squamous Epithelial Cells None seen /hpf (<5) Urine Bacteria Mod /hpf (None Seen) H Urine Hyaline Casts Many /lpf (0 - 2) Urine Mucus Few (None Seen) Urine Yeast with Hyphae Present /hpf Urine Yeast (Budding) Loaded /hpf (None Seen) Urine Creatinine 168.66 mg/dL (30.0-125.0) H Urine Protein/Creatinine Ratio 0.94 Urine Glucose Normal mg/dL (Normal) Urine Total Protein 158.7 mg/dL (1-14) H Microbiology Microbiology Date/Time Source Procedure Growth Status 10/20/24 16:30 Blood Blood Culture - Preliminary NO GROWTH AFTER 72 HOURS OF INCUBATION. Resulted 10/16/24 17:40 Catheter Tip Aerobic Culture - Final Complete 10/16/24 09:39 Penis Aerobic Culture - Final Methicillin Resistant S.aureus Presumptive Hellen tropicalis Complete 10/14/24 22:10 Voided Urine Urine Culture - Final Presumptive Hellen tropicalis Complete 10/10/24 16:45 Sputum Expectorated Sputum Gram Stain - Final Complete 10/10/24 16:45 Sputum Expectorated Sputum Respiratory Culture - Final Complete Labs and/or images reviewed: Labs reviewed by me Assessment/Plan Assessment/Plan NEURO: Acute metabolic encephalopathy secondary to ischemic stroke Possible septic emboli due to persistent MRSA bacteremia History of Bipolar disorder RASS score: -1 - CT head without contrast demonstrated acute left MCA stroke - MRI of the head without contrast demonstrated large area of diffusion restriction of the left posterior temporal lobe and left parietal lobe, small area of punctate infarction along the right posterior frontal lobe to parietal lobe and imaging pattern may be compatible with embolic phenomenon. - continue aspirin 81 mg and Plavix 75 mg daily CARDIOVASCULAR: Acute infective endocarditis of mitral valve Possible chronic diastolic heart failure with preserved ejection fraction - TIM on 10/14/2024 demonstrated mitral valve, structurally normal, anterior leaflet has a 0.8 cm vegetation with a stalk. 0.8 X 0.4 cm, no significant MR or abscess is noted - TTE revealed EF 45-50%, anteroseptal hypokinesis, biatrial enlargement - Infectious disease on board - Continue IV ceftaroline and daptomycin PULMONARY: Rt sided opacity due to possible mucus plug/volume overload Lt sided pleural effusion - IR mentioned not enough fluid for Lt thoracentesis. GASTROENTEROLOGY: Ruled out ileus Moderate to Severe colonic volume of stool Acute watery diarrhoea - Stop Lactulose and miralax. GENITOURINARY: JAYLEEN secondary to vancomycin toxicity Possible prostatic abscess, history of recent prostate surgery Acute complicated cystitis - CT abdomen pelvis on 12/30 showed foci of air and the left psoas muscle with erosive changes of the left SI joint, osteomyelitis/ septic arthritis and left psoas abscess - pending MRI of the pelvis - IV Bumex 2 mg bid. - Continue IV ceftaroline and daptomycin ENDOCRINE: Type 2 diabetes mellitus, hemoglobin A1c 13.2 Diabetic foot ulcer of right toe - CT right foot without contrast showed erosive changes involved proximal and distal phalanx with involvement of IP joint, possible osteomyelitis/septic arthritis, deep 1st digit plantar ulceration - S/P I &D of rt foot - sliding scale of insulin METABOLIC: Moderate Protein calorie malnutrition, albumin 2.1 Hyperphosphatemia secondary to JAYLEEN Hypomagnesemia Metabolic acidosis due to JAYLEEN HEME: Acute on Chronic normocytic anemia secondary to dilutional versus anticoagulant use - 1 unit PRBC given - Monitor H&H INFECTIOUS DISEASE: 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 Findings are concerning for acute osteomyelitis/septic arthritis with left psoas muscle abscess - Pending MRI of lumbosacral spine DIET: Tube feeding DVT prophylax: Lovenox GI prophylaxis: Protonix Bowel regimen: Code status: Full code LINES/DRAINS/ACCESS: ETT: Extubated on 10/23/2024 IV access: Left IJ placed on 10/16/24 Drips: Bumex Kan catheter: Placed on 10/02/2024 DISPOSITION: ICU Critical care spent for this case is 39 minutes This medical document was created using an electronic medical record system with [employer] computerized dictation system. Although this document has been carefully reviewed, there may still be some phonetic and typographical errors. These areas are purely typographical due to imperfections of the software programs, and do not reflect any compromise in the patient's medical care. Plan discussed with: Patient, Other (RN) Date of Service: Oct 25, 2024 Billing Provider: RUCHI IRVING MD Common Visit Codes: [id number] INP/OBS CARE(HIGH) RUCHI IRVING MD Oct 25, 2024 14:31
--- NOTE | 2024-10-25 15:20 | DVHPN2 ---
Progress Note Date Seen: Oct 25, 2024 Medical Necessity Reason Pt with a Central, PICC or Fol: No Subjective Patient reports: Other (extubated) Review of Systems: Deferred Objective vital signs Vital Sign Date Time Temp Pulse Resp B/P (MAP) Pulse Ox O2 Delivery O2 Flow Rate FiO2 10/25/24 14:00 96 10/25/24 14:00 22 131/83 (99) 92 10/25/24 14:00 Simple Mask* 9 90 10/25/24 12:00 98.9 98.9 Total Intake and Output 10/24/24 10/24/24 10/25/24 15:00 23:00 07:00 Intake Total 300 ml 500 ml 250 ml Output Total 1475 ml 800 ml Balance 300 ml -975 ml -550 ml medications Current Medications Medications Dose Ordered Sig/Dion Route Start Time Stop Time Status Last Admin Dose Admin Acetaminophen 650 mg Q6HP PRN [place] 10/10/24 10:00 10/10/24 15:18 650 MG Midazolam HCl 50 ml @ 1 mls/hr Q24H IV 10/10/24 17:15 10/22/24 23:04 6 MLS/HR Norepinephrine Bitartrate 250 ml @ 3.75 mls/hr Q24H IV 10/10/24 17:45 10/15/24 04:04 3.75 MLS/HR Diagnostic Test (Pha) 1 strip Q6HR 10/11/24 00:00 10/25/24 12:14 1 STRIP Insulin Human Regular FOLLOW SLIDING SCALE Q6HR SC 10/11/24 00:00 10/25/24 12:15 2 UNITS Dextrose 50 ml UD IV 10/10/24 22:00 Amino Acids 0 ml @ 0 mls/hr PER PHARMACY IV 10/10/24 19:00 UNV Daptomycin 750 mg/ Sodium Chloride 50 ml @ 100 mls/hr DAILY IV 10/14/24 10:00 10/25/24 09:51 100 MLS/HR Ceftaroline Fosamil 600 mg/ Sodium Chloride 250 ml @ 250 mls/hr Q8H IV 10/19/24 18:00 10/25/24 10:51 250 MLS/HR Pantoprazole Sodium 40 mg DAILY IV 10/21/24 08:30 10/25/24 09:50 40 MG Ondansetron HCl 4 mg Q4HPRN PRN IV 10/24/24 02:00 10/24/24 20:08 4 MG Enteral Nutritional Formula 1,000 ml 50ML/HR GT 10/24/24 09:30 Enoxaparin Sodium 40 mg DAILY SC 10/24/24 10:00 Bumetanide 2 mg BID IV 10/24/24 10:00 10/25/24 09:50 2 MG Aspirin 300 mg DAILY AL 10/25/24 10:00 Acetylcysteine 100 mg Q6HR NEB 10/25/24 18:00 Albuterol 2.5 mg Q6HR NEB 10/25/24 18:00 Ipratropium [place] 0.5 mg Q6HR NEB 10/25/24 18:00 Examination: GENERAL:Abnormal, LUNGS:Abnormal, MSK:Abnormal, SKIN:Abnormal laboratory and microbiology Laboratory Tests 10/25/24 03:20 Test 10/25/24 03:20 Range/Units Serum Glucose 132 H 74-106 mg/dL Microbiology Date/Time Source Procedure Growth Status 10/20/24 16:30 Blood Blood Culture - Preliminary NO GROWTH AFTER 72 HOURS OF INCUBATION. Resulted 10/16/24 17:40 Catheter Tip Aerobic Culture - Final Complete 10/16/24 09:39 Penis Aerobic Culture - Final Methicillin Resistant S.aureus Presumptive Hellen tropicalis Complete 10/14/24 22:10 Voided Urine Urine Culture - Final Presumptive Hellen tropicalis Complete 10/10/24 16:45 Sputum Expectorated Sputum Gram Stain - Final Complete 10/10/24 16:45 Sputum Expectorated Sputum Respiratory Culture - Final Complete Problem List/Assessment/Plan Problem List/Assessment/Plan Acute kidney injury multifactorial hemodynamically mediated, FeNa < 1% Acute respiratory failure, patient intubated on ventilator/extubated Vancomycin nephrotoxicity Septic shock Acute CVA MRSA bacteremia Bacterial endocarditis Lower extremity MRSA wound infection BPH status post TURP with indwelling Kan catheter d History of methamphetamine abuse Hypoalbuminemia Metabolic acidosis Hypernatremia due to insensible water loss recs extubated,, on 9 L Oxymizer Bumex b.i.d. IV 1mg We will follow closely on iv abx Plan discussed with: Other Dietary Evaluation Review Comments: 1) Add cardiac restriction to 60g CCHO diet 2) Initiate Glucerna qd. Encourage optimal PO intake 3) Follow-up with urology and surgery 4) Follow-up with social services designee r/t methamphetamine abuse 5) Continue to monitor I&O, labs, and skin integrity Expected Outcomes/Goals: 1) appetite and labs to improve 2) wound to improve 3) f/u in 3-5 days XUAN MATTHEWS MD Oct 25, 2024 15:20
--- NOTE | 2024-10-25 16:07 | DVHPN2 ---
Progress Note - Dictate Date Seen: Oct 25, 2024 Medical Necessity Reason Pt with a Central, PICC or Fol: No Subjective Mr. Velazquez is a 39 years old gentleman with a history of diabetes, GERD, bipolar disorder, schizophrenia, chronic diabetic ulcer, he was brought to the [facility] on 10/02/2024 with a chief company of fever, the patient is also noticed to have altered mental status, in the CT brain scan showed evidence suggestive of left MCA territory acute stroke. I have seen and examined the patient, talked to his nurse, he is awake, eyes closed, restrained because he tried to pull the lines He moves the arms and legs but he is nonresponsive to verbal stimuli/commands Blood culture, 10/02/2024: MRSA Blood culture, 10/03/2024: MRSA Blood culture, 10/04/2024: MRSA UDS, 10/03/2024: Amphetamine, 10/05/24: Negative Urinalysis, 10/02/2024: WBC: 30, urine leukocyte esterase: Trace WBC/HB/PLT/MCV, 10/06/2024: 5/8.7/130/82.4, 10/10/2024: 6.5/8.1/211/84.5, 10/11/2024: 6.1/7.5/176/85.9, 10/21/2024: 6/8.4/147/81.6 PTT/INR/eight six, 10/02/2024: 12.3/1.18/34.4 Na, 10/07/2024: 144 10/10/2024: 151, 10/11/2024: 148, 10/24/2024: 146, 10/25/2024: 149 CMP, 10/05/2024: Unremarkable BUN/CR, 10/10/2024: 22/0.96, 10/11/2024: 32/1.94 GFR, 10/10/2024: 102, 10/11/2024: 44 Lactic acid, 10/24/2024: 2.1 Liver function tests, 10/11/2024: Unremarkable HGB A1c, 05/10/2023: >14 TG/HDL/LDL/HDL, 10/07/2024: 153/87/39/9 TIM, 10/14/2024: Left Ventricle: Normal LV size and function, LVEF estimated at 60% Right Ventricle: NOrmal RV size and function Left atrium: normal Right atrium: normal RA Left atrial appendage: no thrombus noted, d Aortic valve: trileaflet valve, no severe or AI Mitral Valve: structurally normal, anterior leaflet has 0. 8 cm vegetation with stalk . 0.8 x 0.4 cm, no significant MR is noted however, no abscess noted Tricuspid Valve: mild tricuspid regurgitaiton, no TS Pulmonic Valve: structurally normal, no severe PIor PS Interatrial septum: negative color flow for R to L shunt, negative bubble study Ascending aorta: no severe plaquing Echocardiogram, 10/06/2024: Technically good study. Off axis views. Limited views obtained. There appears to be biatrial enlargement and LV enlargement. Mild aortic root enlargement. Valves appear to be structurally normal. Left ventricular function is borderline at 45 to 50% anteroseptal hypokinesis.. Normal RV function. Mild TR. No pericardial effusion masses or vegetations. CT head, 10/05/2024: Acute left MCA territory infarct in left insula/temporal operculum/temporal lobe. No hemorrhage or mass effect Sedated, 10/09/2024: 1. Interval progression in evolution of left middle cerebral artery territory infarct involving the insula / temporal are operculum/ temporal lobe with associated loss of khoury-white matter differentiation and progressively diminished parenchymal attenuation. 2. No evidence of intracranial hemorrhage, mass effect, midline shift or herniation. 3. Chronic sequelae of microangiopathy and atrophic cortical volume loss. CT abdomen/pelvis, 10/06/2024: 1. Trace bilateral pleural effusions with adjacent atelectasis and patchy posterior bibasilar pulmonary infiltrate. 2. Hepatomegaly. 3. Excess retained colorectal stool and moderate proximal mechanical small-bowel obstruction. 4. Moderate gas and Kan catheter within the urinary bladder CT abdomen/pelvis, 10/16/2024: Foci of air at the left psoas muscle with erosive changes at the left anterior sacroiliac joint. Findings are concerning for acute osteomyelitis/septic arthritis with left psoas muscle abscess. Evaluated on this study is extremely limited due to lack of IV contrast and artifact. Suggest MRI with and without IV contrast for further evaluation. If MRI cannot be performed, contrast enhanced CT is suggested. Small to moderate amount of ascites. Extensive body wall edema. Small to moderate left and small right pleural effusions. Diabetes mellitus. Constipation. CTA head, neck, 10/05/2024: 1. No evidence of acute intracranial hemorrhage, mass effect or hydrocephalus. 2. No evidence of hemodynamically significant intracranial stenosis, proximal occlusion or aneurysm. 3. No evidence of hemodynamically significant cervical stenosis or dissection MRI head, 10/15/2024: 1. Large area of diffusion restriction of the left posterior temporal lobe and left parietal lobe. 2. Small areas of punctate infarction along the right posterior frontal lobe to parietal lobe. 3. Imaging pattern may be compatible with embolic phenomenon vital signs Vital Sign Date Time Temp Pulse Resp B/P (MAP) Pulse Ox O2 Delivery O2 Flow Rate FiO2 10/25/24 14:00 96 10/25/24 14:00 22 131/83 (99) 92 10/25/24 14:00 Simple Mask* 9 90 10/25/24 12:00 98.9 98.9 Total Intake and Output 10/24/24 10/24/24 10/25/24 15:00 23:00 07:00 Intake Total 300 ml 500 ml 250 ml Output Total 1475 ml 800 ml Balance 300 ml -975 ml -550 ml medications Current Medications Medications Dose Ordered Sig/Dion Route Start Time Stop Time Status Last Admin Dose Admin Acetaminophen 650 mg Q6HP PRN [place] 10/10/24 10:00 10/10/24 15:18 650 MG Midazolam HCl 50 ml @ 1 mls/hr Q24H IV 10/10/24 17:15 10/22/24 23:04 6 MLS/HR Norepinephrine Bitartrate 250 ml @ 3.75 mls/hr Q24H IV 10/10/24 17:45 10/15/24 04:04 3.75 MLS/HR Diagnostic Test (Pha) 1 strip Q6HR 10/11/24 00:00 10/25/24 12:14 1 STRIP Insulin Human Regular FOLLOW SLIDING SCALE Q6HR SC 10/11/24 00:00 10/25/24 12:15 2 UNITS Dextrose 50 ml UD IV 10/10/24 22:00 Amino Acids 0 ml @ 0 mls/hr PER PHARMACY IV 10/10/24 19:00 UNV Daptomycin 750 mg/ Sodium Chloride 50 ml @ 100 mls/hr DAILY IV 10/14/24 10:00 10/25/24 09:51 100 MLS/HR Ceftaroline Fosamil 600 mg/ Sodium Chloride 250 ml @ 250 mls/hr Q8H IV 10/19/24 18:00 10/25/24 10:51 250 MLS/HR Pantoprazole Sodium 40 mg DAILY IV 10/21/24 08:30 10/25/24 09:50 40 MG Ondansetron HCl 4 mg Q4HPRN PRN IV 10/24/24 02:00 10/24/24 20:08 4 MG Enteral Nutritional Formula 1,000 ml 50ML/HR GT 10/24/24 09:30 Enoxaparin Sodium 40 mg DAILY SC 10/24/24 10:00 Aspirin 300 mg DAILY IA 10/25/24 10:00 Acetylcysteine 100 mg Q6HR NEB 10/25/24 18:00 Albuterol 2.5 mg Q6HR NEB 10/25/24 18:00 Ipratropium [place] 0.5 mg Q6HR NEB 10/25/24 18:00 Bumetanide 1 mg BIDD IV 10/25/24 18:00 objective General: the patient is well developed and nourished. No acute distress. Intubated MUSCULOSKELETAL EXAM: Chronic ulcer in the right big toe, a small skin lesion in the left big toe (initial consult) MENTAL STATUS: Subjective SPEECH, LANGUAGE, HIGHER CORTICAL FUNCTION: Subjective CRANIAL NERVES: Pupils are equal, round and reactive. Eyes are closed. No sign of facial weakness. Sensory and motor examination is unremarkable in bilateral trigeminal distribution SENSATION: Responsive to pain in the light touch MOTOR: Muscle tone feels normal, he moves the arms in the legs REFLEXES: Deep tendon reflexes feel symmetrical. No pathological reflexes. CEREBELLAR/COORDINATION: Deferred GAIT/STATION: deferred laboratory and microbiology Laboratory Tests 10/25/24 03:20 Test 10/25/24 03:20 Range/Units Serum Glucose 132 H 74-106 mg/dL Problem List Altered mental status, secondary to Acute stroke Metabolic encephalopathy Acute respiratory failure Acute stroke Sepsis with MRSA Chronic diabetic wound, status post debridement on 10/15/2024 Endocarditis Osteomyelitis Psoas abscess History of substance abuse Assessment/Plan Monitoring Supportive treatment ICU care Follow up tests MRI lumbar spine Stabilize vitals Respiratory support Aspirin 81 mg daily/300 mg IA IV antibiotics Haldol p.r.n. for agitation DVT prophylaxis/Lovenox Infectious disease on case Need to quit substance abuse Orthopedic on case More recommendation per clinical course This medical document was created using an electronic medical record system with Gini dictation system. Although this document has been carefully reviewed, there may still be some phonetic and typographical errors. These areas are purely typographical due to imperfections of the software programs, and do not reflect any compromise in the patient's medical care. Prognosis poor Dietary Evaluation Review Comments: 1) Add cardiac restriction to 60g CCHO diet 2) Initiate Glucerna qd. Encourage optimal PO intake 3) Follow-up with urology and surgery 4) Follow-up with social economist r/t methamphetamine abuse 5) Continue to monitor I&O, labs, and skin integrity Expected Outcomes/Goals: 1) appetite and labs to improve 2) wound to improve 3) f/u in 3-5 days Plan discussed with: Other CALEB PAYNE MD Oct 25, 2024 16:07
[2024-10-25] MEDS: BUMETANIDE 1mg/4ml VIAL (0.25mg/ml) IV SCH (17:49)
[2024-10-25] MEDS: ACETYLCYSTEINE 10 %(100MG/ML) SOL 4ML NEB SCH (18:03)
[2024-10-25] MEDS: IPRATROPIUM BROM 0.5 MG/2.5ML INH SOL NEB SCH (18:03)
[2024-10-25] MEDS: ALBUTEROL SULF 2.5 MG/0.5ML(0.5%) NEB SOLN NEB SCH (18:03)
--- NOTE | 2024-10-25 20:03 | DVHPN2 ---
[facility] DOS: 10/25/2024 Patient seen and examined at bedside. Currently on supplemental oxygen Overnight events reviewed. HPI: A 39-year-old male with past medical history of diabetes mellitus, MRSA of the urine, hyperlipidemia, and methamphetamine abuse who presented to ED on 10/02/24 with complaint of fever. Patient reported experiencing fever, associated with generalized weakness, abdominal pain, presented with Kan catheter in place due to recent prostate surgery. Patient was seen and evaluated in the ED. Workup showed WBC 6.1, hemoglobin 9.5, hematocrit 28.7, platelets 203, sodium 130, potassium 4.0, BUN 23, creatinine 1.12, glucose 382, calcium 8.5, albumin 3.1. O2 saturation was 95% on room air. Abdomen/pelvis CT revealing evidence of left sacroiliitis with gas and fluid extending into left pelvic muscles likely representing abscess; rectal wall thickening correlate for symptoms of proctitis; Kan catheter decompressed urinary bladder with wall thickening; hypodense appearance of the mildly enlarged prostate, cystitis and prostatitis possible. Patient was started on IV antibiotic regimen vancomycin, and admitted for further care. Pulmonary consultation was requested for evaluation and management of acute hypoxic respiratory failure. Past Medical History DM, HLD, MRSA of urine, Methamphetamine abuse Past Surgical History Prostate surgery Medications: Reviewed. Allergies: No known drug allergies. Family History Diabetes mellitus Social History The patient lives at home, denies smoking, alcohol or illicit drugs abuse Reviewed: Care Plan Changes from previous H/P or p: No Changes General: Per HPI Eyes: No Pain, No Vision change, No Conjunctivae inflammation, No Eyelid inflammation, No Other, No Redness ENT: No Ear pain, No Ear discharge, No Nose pain, No Nose discharge, No Nose congestion, No Mouth pain, No Mouth swelling, No Throat pain, No Throat swelling, No Other Cardiovascular: No Chest Pain, No Palpitations, No Orthopnea, No Paroxysmal Noc. Dyspnea, No Edema, No Lt Headedness, No Other Respiratory: No Cough, No Dry, No Shortness of breath, No SOB with excertion, No Wheezing, No Hemoptysis, No Pleuritic Pain, No Sputum, No Other Gastrointestinal: No Nausea, No Vomiting; Abdominal Pain; No Diarrhea, No Constipation, No Melena, No Hematochezia, No Other Genitourinary: No Dysuria, No Frequency, No Incontinence, No Hematuria, No Retention; Other (Kan catheter in place) Musculoskeletal: No other, No neck pain, No shoulder pain, No arm pain, No back pain, No hand pain, No leg pain, No foot pain Skin: No Rash, No Lesions, No Jaundice, No Bruising, No Other Objective Vitals Vital Signs Date Time Temp Pulse Resp B/P (MAP) Pulse Ox O2 Delivery O2 Flow Rate FiO2 10/25/24 18:16 104 22 91 10/25/24 18:05 Simple Mask* 10 N/A Oxymizer 10/25/24 18:00 99.9 143/86 (105) 99.9 Intake/Output Intake and Output 10/25/24 07:00 Intake Total 1050 ml Output Total 2275 ml Balance -1225 ml Intake Oral 0 ml IV Total 1050 ml Output Urine Total 2275 ml # Bowel Movements 6 General Appearance: Alert, Oriented X3, Cooperative HEENT: Atraumatic, PERRLA, EOMI, Mucous membr. moist/pink Neck: Supple Lungs: Clear to auscultation, Normal air movement Cardiovascular: Regular rate, Normal S1, Normal S2, No murmurs, Gallops, Rubs Abdomen: Normal bowel sounds, Soft, No tenderness Neuro: Cranial nerves 3-12 NL Psych/Mental Status: Mental status NL Medications Current Medications Medications Dose Ordered Sig/Dion Route Start Time Stop Time Status Last Admin Dose Admin Acetaminophen 650 mg Q6HP PRN ME 10/10/24 10:00 10/10/24 15:18 650 MG Midazolam HCl 50 ml @ 1 mls/hr Q24H IV 10/10/24 17:15 10/22/24 23:04 6 MLS/HR Norepinephrine Bitartrate 250 ml @ 3.75 mls/hr Q24H IV 10/10/24 17:45 10/15/24 04:04 3.75 MLS/HR Diagnostic Test (Pha) 1 strip Q6HR 10/11/24 00:00 10/25/24 17:47 1 STRIP Insulin Human Regular FOLLOW SLIDING SCALE Q6HR SC 10/11/24 00:00 10/25/24 17:47 4 UNITS Dextrose 50 ml UD IV 10/10/24 22:00 Amino Acids 0 ml @ 0 mls/hr PER PHARMACY IV 10/10/24 19:00 UNV Daptomycin 750 mg/ Sodium Chloride 50 ml @ 100 mls/hr DAILY IV 10/14/24 10:00 10/25/24 09:51 100 MLS/HR Ceftaroline Fosamil 600 mg/ Sodium Chloride 250 ml @ 250 mls/hr Q8H IV 10/19/24 18:00 10/25/24 17:49 250 MLS/HR Pantoprazole Sodium 40 mg DAILY IV 10/21/24 08:30 10/25/24 09:50 40 MG Ondansetron HCl 4 mg Q4HPRN PRN IV 10/24/24 02:00 10/24/24 20:08 4 MG Enteral Nutritional Formula 1,000 ml 50ML/HR GT 10/24/24 09:30 Enoxaparin Sodium 40 mg DAILY SC 10/24/24 10:00 Aspirin 300 mg DAILY ME 10/25/24 10:00 Acetylcysteine 100 mg Q6HR NEB 10/25/24 18:00 10/25/24 18:03 100 MG Albuterol 2.5 mg Q6HR NEB 10/25/24 18:00 10/25/24 18:03 2.5 MG Ipratropium [place] 0.5 mg Q6HR NEB 10/25/24 18:00 10/25/24 18:03 0.5 MG Bumetanide 1 mg BIDD IV 10/25/24 18:00 10/25/24 17:49 1 MG Laboratory Results Laboratory Tests 10/25/24 03:20 Chemistry Test 10/25/24 03:20 Calcium Level 7.7 mg/dL (8.7-10.4) L Urinalysis Test 10/14/24 10:42 10/14/24 22:10 Urine Sodium 21 mmol/L (40-220) L Urine Color Light-orange (Yellow) Urine Clarity Ex.turbid (Clear) Urine pH 5.0 (5.0-9.0) Urine Specific [place] 1.017 (1.001-1.035) Urine Protein 1+ (Negative) H Urine Ketones Negative (Negative) Urine Blood 2+ /uL (Negative) H Urine Nitrite Negative (Negative) Urine Bilirubin Negative (Negative) Urine Urobilinogen Normal mg/dL (Negative) Urine Leukocyte Esterase 3+ /uL (Negative) Urine RBC 416 /hpf (0 - 3) Urine Microscopic WBC 354 /HPF (0-3) H Urine Squamous Epithelial Cells None seen /hpf (<5) Urine Bacteria Mod /hpf (None Seen) H Urine Hyaline Casts Many /lpf (0 - 2) Urine Mucus Few (None Seen) Urine Yeast with Hyphae Present /hpf Urine Yeast (Budding) Loaded /hpf (None Seen) Urine Creatinine 168.66 mg/dL (30.0-125.0) H Urine Protein/Creatinine Ratio 0.94 Urine Glucose Normal mg/dL (Normal) Urine Total Protein 158.7 mg/dL (1-14) H Microbiology Microbiology Date/Time Source Procedure Growth Status 10/20/24 16:30 Blood Blood Culture - Final NO GROWTH AFTER 5 DAYS OF INCUBATION. Complete 10/16/24 17:40 Catheter Tip Aerobic Culture - Final Complete 10/16/24 09:39 Penis Aerobic Culture - Final Methicillin Resistant S.aureus Presumptive Hellen tropicalis Complete 10/14/24 22:10 Voided Urine Urine Culture - Final Presumptive Hellen tropicalis Complete 10/10/24 16:45 Sputum Expectorated Sputum Gram Stain - Final Complete 10/10/24 16:45 Sputum Expectorated Sputum Respiratory Culture - Final Complete Assessment/Plan Assessment/Plan Impression: Acute hypoxic respiratory failure Atelectasis Mucus plugging JAYLEEN secondary to vancomycin toxicity Acute metabolic encephalopathy secondary to ischemic stroke Septic emboli due to persistent MRSA bacteremia Anemia, normocytic Persistent MRSA bacteremia 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 Moderate multifocal opacities. More pronounced in the right lower lung. Status post extubation on October 23, 2024. Currently on supplemental oxygen 10 L/min via Oxymizer Keep O2 saturation above 92%. Start pressors if necessary for hemodynamic support. On pressors for hemodynamic support. Titrate to keep MAP above 65 mmHg/SBP above 90 mmHg. Continue antibiotics. F/u cultures. Monitor renal function due to Acute kidney injury. Monitor electrolytes. Supplement as necessary. Potassium supplemented Supplement magnesium and calcium as necessary. Monitor hemoglobin Currently 7.8 grams/deciliter Nutritional support. Accucheks, ISS. GI/DVT prophylaxis. Condition: Critical Prognosis: Poor given multiple comorbidities. Rest of plan per hospitalist and other consultants. A total of 35 minutes of critical care time was spent reviewing the patient record, examining the patient, making a diagnostic and therapeutic plan, discussing this plan with the medical personnel, following up on diagnostic studies and following the patient for clinical stability excluding any and all procedures. At least 50% of this time was spent in direct, [id number] contact. Thank you for allowing me to participate in this patient's care. Further recommendations will depend on patient's clinical course. Please do not hesitate to contact me if you have any questions or concerns. This medical document was created using an electronic medical record system with [employer] dictation system. Although this document has been carefully reviewed, there may still be some phonetic and typographical errors. These areas are purely typographical due to imperfections of the software programs, and do not reflect any compromise in the patient's medical care. Plan discussed with: Patient, Other (RN Hilda) My Orders Orders - ALBARO MONTOYA MD Procedure Category Date Status Time Acetylcysteine PHA 10/25/24 In Process Inhalation 10% 18:00 Albuterol Medneb PHA 10/25/24 In Process (Ventolin Medneb) 18:00 Ipratropium Medneb PHA 10/25/24 In Process (Atrovent Medneb) 18:00 Chest Percussion Tx RT 10/25/24 Logged Initi 14:24 Date of Service: Oct 25, 2024 Billing Provider: ALBARO MONTOYA MD Common Visit Codes: [id number] INP/OBS CARE(HIGH), [id number] CARE 30-74 MIN ALBARO MONTOYA MD Oct 25, 2024 20:03
--- NOTE | 2024-10-25 21:22 | DVHPN2 ---
Progress Note - Dictate Date Seen: Oct 25, 2024 Medical Necessity Reason Pt with a Central, PICC or Fol: No Subjective No new complaints; stool for occult blood negative, no active GI bleeding He is extubated; somewhat altered requiring a sitter Chest x-ray imaging report reviewed. Moderate multifocal opacities. More pronounced in the right lower lung. Status post extubation on October 23, 2024. Currently on supplemental oxygen 10 L/min via Oxymizer Multiple bowel movements recorded Patient is getting Jevity at 50 mL/hour vital signs Vital Sign Date Time Temp Pulse Resp B/P (MAP) Pulse Ox O2 Delivery O2 Flow Rate FiO2 10/25/24 18:16 104 22 91 10/25/24 18:05 Simple Mask* 10 N/A Oxymizer 10/25/24 18:00 99.9 143/86 (105) 99.9 Total Intake and Output 10/24/24 10/24/24 10/25/24 15:00 23:00 07:00 Intake Total 300 ml 500 ml 250 ml Output Total 1475 ml 800 ml Balance 300 ml -975 ml -550 ml medications Current Medications Medications Dose Ordered Sig/Dion Route Start Time Stop Time Status Last Admin Dose Admin Acetaminophen 650 mg Q6HP PRN [place] 10/10/24 10:00 10/10/24 15:18 650 MG Midazolam HCl 50 ml @ 1 mls/hr Q24H IV 10/10/24 17:15 10/22/24 23:04 6 MLS/HR Norepinephrine Bitartrate 250 ml @ 3.75 mls/hr Q24H IV 10/10/24 17:45 10/15/24 04:04 3.75 MLS/HR Diagnostic Test (Pha) 1 strip Q6HR 10/11/24 00:00 10/25/24 17:47 1 STRIP Insulin Human Regular FOLLOW SLIDING SCALE Q6HR SC 10/11/24 00:00 10/25/24 17:47 4 UNITS Dextrose 50 ml UD IV 10/10/24 22:00 Amino Acids 0 ml @ 0 mls/hr PER PHARMACY IV 10/10/24 19:00 UNV Daptomycin 750 mg/ Sodium Chloride 50 ml @ 100 mls/hr DAILY IV 10/14/24 10:00 10/25/24 09:51 100 MLS/HR Ceftaroline Fosamil 600 mg/ Sodium Chloride 250 ml @ 250 mls/hr Q8H IV 10/19/24 18:00 10/25/24 17:49 250 MLS/HR Pantoprazole Sodium 40 mg DAILY IV 10/21/24 08:30 10/25/24 09:50 40 MG Ondansetron HCl 4 mg Q4HPRN PRN IV 10/24/24 02:00 10/24/24 20:08 4 MG Enteral Nutritional Formula 1,000 ml 50ML/HR GT 10/24/24 09:30 Enoxaparin Sodium 40 mg DAILY SC 10/24/24 10:00 Aspirin 300 mg DAILY [place] 10/25/24 10:00 Acetylcysteine 100 mg Q6HR NEB 10/25/24 18:00 10/25/24 18:03 100 MG Albuterol 2.5 mg Q6HR NEB 10/25/24 18:00 10/25/24 18:03 2.5 MG Ipratropium [place] 0.5 mg Q6HR NEB 10/25/24 18:00 10/25/24 18:03 0.5 MG Bumetanide 1 mg BIDD IV 10/25/24 18:00 10/25/24 17:49 1 MG objective General: RASS -3, afebrile, mucosae are moist Cardiovascular: Normal S1 and S2. No murmurs, gallops or rubs Respiratory: Mechanically assisted ventilation, equal bilateral airway entree. Clear lung sounds on auscultation Abdomen: Soft, nontender, no organomegaly, sluggish bowel sounds MSK/skin: Mobilization of limbs cannot be evaluated. Skin is dry and warm. bilateral pedal edema +, ulceration in the bottom of the right great toe. Neurological: Orientation cannot be assessed. No apparent motor no sensitive deficits. Pupils are isocoric and reactive laboratory and microbiology Laboratory Tests 10/25/24 03:20 Test 10/25/24 03:20 Range/Units Serum Glucose 132 H 74-106 mg/dL Problems(with codes): (1) Psoas muscle abscess (2) Septic arthritis (3) Type 2 diabetes mellitus with hyperglycemia (4) Cellulitis of toe of right foot (5) Leukocytosis, unspecified (6) DKA (diabetic ketoacidosis) (7) Bacteremia due to methicillin resistant Staphylococcus aureus (8) Methamphetamine abuse (9) Sepsis, unspecified organism (10) UTI (urinary tract infection) Prognosis PLAN Keep O2 saturation above 92%.; patient is still has thick secretions Start pressors if necessary for hemodynamic support. Continue antibiotics.F/u cultures. Monitor renal function due to Acute kidney injury. Monitor electrolytes. Supplement as necessary. Potassium supplemented Supplement magnesium and calcium as necessary. Monitor hemoglobin ; start IV iron Currently 7.8 grams/deciliter Maintain on Protonix 40 mg IV daily Dietary Evaluation Review Comments: 1) Add cardiac restriction to 60g CCHO diet 2) Initiate Glucerna qd. Encourage optimal PO intake 3) Follow-up with urology and surgery 4) Follow-up with social worker psychiatric r/t methamphetamine abuse 5) Continue to monitor I&O, labs, and skin integrity Expected Outcomes/Goals: 1) appetite and labs to improve 2) wound to improve 3) f/u in 3-5 days Plan discussed with: Other (Dr Jimenez and ICU Nurse) ED BARAHONA MD Oct 25, 2024 21:22
[2024-10-26] VITALS (36 sets, daily range): BP systolic 126–144; BP diastolic 74–94; PULSE 83–104; RESP 17–29; TEMP 98.5–100; O2SAT 84–99
[2024-10-26 03:05] LABS: Hematocrit 22.6 % (41.0-53.0); Hemoglobin 7.7 g/dL (13.5-17.5); Mean Corpuscular Hemoglobin 27.9 pg (28.0-32.0); Mean Corpuscular Volume 82.1 fL (80.0-100.0); Nucleated Red Blood Cells % 0.0 %
[2024-10-26 03:18] LABS: Alkaline Phosphatase 69 U/L (46-116); Anion Gap 13 (5-15); BUN/Creatinine Ratio 13.8 (10.0-20.0); Blood Urea Nitrogen 22 mg/dL (9-23); Magnesium 1.7 mg/dL (1.6-2.6); Total Protein 6.3 g/dL (5.7-8.2)
[2024-10-26 03:34] LABS: Carbon Dioxide 32 mmol/L (20-31); Chloride 107 mmol/L (98-107); Glucose 125 mg/dL (74-106); Potassium 2.8 mmol/L (3.5-5.1); Sodium 152 mmol/L (136-145)
[2024-10-26 03:35] LABS: Alanine Aminotransferase < 9 U/L (7-40); Albumin 2.2 g/dL (3.2-4.8); Bilirubin, Total 0.2 mg/dL (0.2-1.0); Calcium 7.8 mg/dL (8.7-10.4)
--- NOTE | 2024-10-26 05:44 | DVH ---
CHEST RADIOGRAPH Indication: DESATURATION Technique: Single frontal view of the chest was obtained Comparison: XY CHEST PORTABLE on DOS: 10/25/24, XY CHEST PORTABLE on DOS: 10/24/24, XY CHEST PORTABLE o n DOS: 10/24/24 IMPRESSION: Heart is stable in size. Diffuse alveolar airspace opacities bilaterally appear similar compatible w ith pulmonary edema, bilateral pneumonia, or ARDS. There is likely a small right pleural effusion, p otentially increased from prior examination. No pneumothorax. Left IJ catheter tip appears unchanged, likely in the distal internal jugular vein.
[2024-10-26] MEDS: ALBUMIN 25% 50 ML IV ONE (06:35)
[2024-10-26] MEDS: POTASSIUM CHL 20MEQ/100ML 100 ML IV SCH ×2 (06:35→12:32)
--- NOTE | 2024-10-26 11:58 | DVHPN2 ---
Subjective The patient is seen and examined at bedside. Extubate, on high flow. Tolerate much better than oxy mask. No change overnight. Reviewed: Care Plan Changes from previous H/P or p: No Changes General: Per HPI Eyes: No Pain, No Vision change, No Conjunctivae inflammation, No Eyelid inflammation, No Other, No Redness ENT: No Ear pain, No Ear discharge, No Nose pain, No Nose discharge, No Nose congestion, No Mouth pain, No Mouth swelling, No Throat pain, No Throat swelling, No Other Cardiovascular: No Chest Pain, No Palpitations, No Orthopnea, No Paroxysmal Noc. Dyspnea, No Edema, No Lt Headedness, No Other Respiratory: No Cough, No Dry, No Shortness of breath, No SOB with excertion, No Wheezing, No Hemoptysis, No Pleuritic Pain, No Sputum, No Other Gastrointestinal: No Nausea, No Vomiting; Abdominal Pain; No Diarrhea, No Constipation, No Melena, No Hematochezia, No Other Genitourinary: No Dysuria, No Frequency, No Incontinence, No Hematuria, No Retention; Other (Kan catheter in place) Musculoskeletal: No other, No neck pain, No shoulder pain, No arm pain, No back pain, No hand pain, No leg pain, No foot pain Skin: No Rash, No Lesions, No Jaundice, No Bruising, No Other Objective Vitals Vital Signs Date Time Temp Pulse Resp B/P (MAP) Pulse Ox O2 Delivery O2 Flow Rate FiO2 10/26/24 10:01 97 24 84 50.0 65 10/26/24 10:00 Hi-Flow Heated NC+ 10/26/24 10:00 99.1 132/84 (100) 99.1 Intake/Output Intake and Output 10/26/24 07:00 Intake Total 1150 ml Output Total 1670 ml Balance -520 ml Intake Oral 0 ml IV Total 1150 ml Output Urine Total 1600 ml Stool Total 70 ml General Appearance: Alert, Oriented X3, Cooperative HEENT: Atraumatic, PERRLA, EOMI, Mucous membr. moist/pink Neck: Supple Lungs: Clear to auscultation, Normal air movement Cardiovascular: Regular rate, Normal S1, Normal S2, No murmurs, Gallops, Rubs Abdomen: Normal bowel sounds, Soft, No tenderness Neuro: Cranial nerves 3-12 NL Psych/Mental Status: Mental status NL Medications Current Medications Medications Dose Ordered Sig/Dion Route Start Time Stop Time Status Last Admin Dose Admin Acetaminophen 650 mg Q6HP PRN SC 10/10/24 10:00 10/10/24 15:18 650 MG Midazolam HCl 50 ml @ 1 mls/hr Q24H IV 10/10/24 17:15 10/22/24 23:04 6 MLS/HR Norepinephrine Bitartrate 250 ml @ 3.75 mls/hr Q24H IV 10/10/24 17:45 10/15/24 04:04 3.75 MLS/HR Diagnostic Test (Pha) 1 strip Q6HR 10/11/24 00:00 10/26/24 06:49 1 STRIP Insulin Human Regular FOLLOW SLIDING SCALE Q6HR SC 10/11/24 00:00 10/25/24 17:47 4 UNITS Dextrose 50 ml UD IV 10/10/24 22:00 Amino Acids 0 ml @ 0 mls/hr PER PHARMACY IV 10/10/24 19:00 UNV Daptomycin 750 mg/ Sodium Chloride 50 ml @ 100 mls/hr DAILY IV 10/14/24 10:00 10/26/24 10:17 100 MLS/HR Ceftaroline Fosamil 600 mg/ Sodium Chloride 250 ml @ 250 mls/hr Q8H IV 10/19/24 18:00 10/26/24 10:38 250 MLS/HR Pantoprazole Sodium 40 mg DAILY IV 10/21/24 08:30 10/26/24 10:16 40 MG Ondansetron HCl 4 mg Q4HPRN PRN IV 10/24/24 02:00 10/24/24 20:08 4 MG Enteral Nutritional Formula 1,000 ml 50ML/HR GT 10/24/24 09:30 Enoxaparin Sodium 40 mg DAILY SC 10/24/24 10:00 10/26/24 10:17 40 MG Aspirin 300 mg DAILY SC 10/25/24 10:00 Acetylcysteine 100 mg Q6HR NEB 10/25/24 18:00 10/26/24 06:00 100 MG Albuterol 2.5 mg Q6HR NEB 10/25/24 18:00 10/26/24 06:00 2.5 MG Ipratropium [place] 0.5 mg Q6HR NEB 10/25/24 18:00 10/26/24 06:00 0.5 MG Bumetanide 1 mg BIDD IV 10/25/24 18:00 10/25/24 17:49 1 MG Dextrose 1,000 ml @ 50 mls/hr Q20H IV 10/26/24 11:30 Potassium Chloride 100 ml @ 50 mls/hr Q2H IV 10/26/24 11:30 10/26/24 15:29 UNV Laboratory Results Laboratory Tests 10/26/24 02:34 Chemistry Test 10/26/24 02:34 Albumin 2.2 g/dL (3.2-4.8) L Calcium Level 7.8 mg/dL (8.7-10.4) L Magnesium Level 1.7 mg/dL (1.6-2.6) Phosphorus Level 3.1 mg/dL (2.4-5.1) Total Protein 6.3 g/dL (5.7-8.2) LFT Test 10/26/24 02:34 Alanine Aminotransferase (ALT) < 9 U/L (7-40) Alkaline Phosphatase 69 U/L (46-116) Aspartate Amino Transferase (AST) 19 U/L (13-40) Total Bilirubin 0.2 mg/dL (0.2-1.0) Urinalysis Test 10/14/24 10:42 10/14/24 22:10 Urine Sodium 21 mmol/L (40-220) L Urine Color Light-orange (Yellow) Urine Clarity Ex.turbid (Clear) Urine pH 5.0 (5.0-9.0) Urine Specific [place] 1.017 (1.001-1.035) Urine Protein 1+ (Negative) H Urine Ketones Negative (Negative) Urine Blood 2+ /uL (Negative) H Urine Nitrite Negative (Negative) Urine Bilirubin Negative (Negative) Urine Urobilinogen Normal mg/dL (Negative) Urine Leukocyte Esterase 3+ /uL (Negative) Urine RBC 416 /hpf (0 - 3) Urine Microscopic WBC 354 /HPF (0-3) H Urine Squamous Epithelial Cells None seen /hpf (<5) Urine Bacteria Mod /hpf (None Seen) H Urine Hyaline Casts Many /lpf (0 - 2) Urine Mucus Few (None Seen) Urine Yeast with Hyphae Present /hpf Urine Yeast (Budding) Loaded /hpf (None Seen) Urine Creatinine 168.66 mg/dL (30.0-125.0) H Urine Protein/Creatinine Ratio 0.94 Urine Glucose Normal mg/dL (Normal) Urine Total Protein 158.7 mg/dL (1-14) H Microbiology Microbiology Date/Time Source Procedure Growth Status 10/20/24 16:30 Blood Blood Culture - Final NO GROWTH AFTER 5 DAYS OF INCUBATION. Complete 10/16/24 17:40 Catheter Tip Aerobic Culture - Final Complete 10/16/24 09:39 Penis Aerobic Culture - Final Methicillin Resistant S.aureus Presumptive Hellen tropicalis Complete 10/14/24 22:10 Voided Urine Urine Culture - Final Presumptive Hellen tropicalis Complete 10/10/24 16:45 Sputum Expectorated Sputum Gram Stain - Final Complete 10/10/24 16:45 Sputum Expectorated Sputum Respiratory Culture - Final Complete Labs and/or images reviewed: Labs reviewed by me Assessment/Plan Assessment/Plan NEURO: Acute metabolic encephalopathy secondary to ischemic stroke Possible septic emboli due to persistent MRSA bacteremia History of Bipolar disorder RASS score: -1 - CT head without contrast demonstrated acute left MCA stroke - MRI of the head without contrast demonstrated large area of diffusion restriction of the left posterior temporal lobe and left parietal lobe, small area of punctate infarction along the right posterior frontal lobe to parietal lobe and imaging pattern may be compatible with embolic phenomenon. - continue aspirin 81 mg and Plavix 75 mg daily CARDIOVASCULAR: Acute infective endocarditis of mitral valve Possible chronic diastolic heart failure with preserved ejection fraction - TIM on 10/14/2024 demonstrated mitral valve, structurally normal, anterior leaflet has a 0.8 cm vegetation with a stalk. 0.8 X 0.4 cm, no significant MR or abscess is noted - TTE revealed EF 45-50%, anteroseptal hypokinesis, biatrial enlargement - Infectious disease on board - Continue IV ceftaroline and daptomycin PULMONARY: Rt sided opacity due to possible mucus plug/volume overload Lt sided pleural effusion - IR mentioned not enough fluid for Lt thoracentesis. GASTROENTEROLOGY: Ruled out ileus Moderate to Severe colonic volume of stool Acute watery diarrhoea - Stop Lactulose and miralax. GENITOURINARY: JAYLEEN secondary to vancomycin toxicity Possible prostatic abscess, history of recent prostate surgery Acute complicated cystitis - CT abdomen pelvis on 0 12/30 showed foci of air and the left psoas muscle with erosive changes of the left SI joint, osteomyelitis/ septic arthritis and left psoas abscess - pending MRI of the pelvis - IV Bumex 2 mg bid. - Continue IV ceftaroline and daptomycin ENDOCRINE: Type 2 diabetes mellitus, hemoglobin A1c 13.2 Diabetic foot ulcer of right toe - CT right foot without contrast showed erosive changes involved proximal and distal phalanx with involvement of IP joint, possible osteomyelitis/septic arthritis, deep 1st digit plantar ulceration - S/P I &D of rt foot - sliding scale of insulin METABOLIC: Moderate Protein calorie malnutrition, albumin 2.1 Hyperphosphatemia secondary to JAYLEEN Hypomagnesemia Metabolic acidosis due to JAYLEEN HEME: Acute on Chronic normocytic anemia secondary to dilutional versus anticoagulant use - 1 unit PRBC given - Monitor H&H INFECTIOUS DISEASE: 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 Findings are concerning for acute osteomyelitis/septic arthritis with left psoas muscle abscess - Pending MRI of lumbosacral spine -Continue high flow oxygen. DIET: Tube feeding DVT prophylax: Lovenox GI prophylaxis: Protonix Bowel regimen: Code status: Full code LINES/DRAINS/ACCESS: ETT: Extubated on 10/23/2024 IV access: Left IJ placed on 10/16/24 Drips: Bumex Kan catheter: Placed on 10/02/2024 DISPOSITION: ICU Critical care spent for this case is 38 minutes This medical document was created using an electronic medical record system with [employer] direct computerized dictation system. Although this document has been carefully reviewed, there may still be some phonetic and typographical errors. These areas are purely typographical due to imperfections of the software programs, and do not reflect any compromise in the patient's medical care. Plan discussed with: Other (RN) Date of Service: Oct 26, 2024 Billing Provider: RUCHI IRVING MD Common Visit Codes: 67248-PROLPLOX CARE 30-74 MIN RUCHI IRVING MD Oct 26, 2024 11:57
[2024-10-26] MEDS: D5W 5% 1,000 ML IV SCH (12:32)
[2024-10-26 13:18] LABS: Base Excess 6.9 mmol/L (-2.0-3.0)
--- NOTE | 2024-10-26 17:48 | DVHPN2 ---
Progress Note Date Seen: Oct 26, 2024 Medical Necessity Reason Pt with a Central, PICC or Fol: No Subjective Patient reports: Other (Patient extubated needing high O2) Review of Systems: Deferred Objective vital signs Vital Sign Date Time Temp Pulse Resp B/P (MAP) Pulse Ox O2 Delivery O2 Flow Rate FiO2 10/26/24 17:00 89 24 127/81 (96) 92 10/26/24 16:00 100.0 100.0 10/26/24 16:00 Hi-Flow Heated NC+ 60 70 70 Total Intake and Output 10/25/24 10/25/24 10/26/24 15:00 23:00 07:00 Intake Total 600 ml 250 ml 300 ml Output Total 750 ml 920 ml Balance 600 ml -500 ml -620 ml medications Current Medications Medications Dose Ordered Sig/Dion Route Start Time Stop Time Status Last Admin Dose Admin Acetaminophen 650 mg Q6HP PRN PA 10/10/24 10:00 10/10/24 15:18 650 MG Midazolam HCl 50 ml @ 1 mls/hr Q24H IV 10/10/24 17:15 10/22/24 23:04 6 MLS/HR Norepinephrine Bitartrate 250 ml @ 3.75 mls/hr Q24H IV 10/10/24 17:45 10/15/24 04:04 3.75 MLS/HR Diagnostic Test (Pha) 1 strip Q6HR 10/11/24 00:00 10/26/24 12:01 1 STRIP Insulin Human Regular FOLLOW SLIDING SCALE Q6HR SC 10/11/24 00:00 10/26/24 11:39 2 UNITS Dextrose 50 ml UD IV 10/10/24 22:00 Amino Acids 0 ml @ 0 mls/hr PER PHARMACY IV 10/10/24 19:00 UNV Daptomycin 750 mg/ Sodium Chloride 50 ml @ 100 mls/hr DAILY IV 10/14/24 10:00 10/26/24 10:17 100 MLS/HR Ceftaroline Fosamil 600 mg/ Sodium Chloride 250 ml @ 250 mls/hr Q8H IV 10/19/24 18:00 10/26/24 17:37 250 MLS/HR Pantoprazole Sodium 40 mg DAILY IV 10/21/24 08:30 10/26/24 10:16 40 MG Ondansetron HCl 4 mg Q4HPRN PRN IV 10/24/24 02:00 10/24/24 20:08 4 MG Enteral Nutritional Formula 1,000 ml 50ML/HR GT 10/24/24 09:30 Enoxaparin Sodium 40 mg DAILY SC 10/24/24 10:00 10/26/24 10:17 40 MG Aspirin 300 mg DAILY PA 10/25/24 10:00 Acetylcysteine 100 mg Q6HR NEB 10/25/24 18:00 10/26/24 11:59 100 MG Albuterol 2.5 mg Q6HR NEB 10/25/24 18:00 10/26/24 12:00 2.5 MG Ipratropium [place] 0.5 mg Q6HR NEB 10/25/24 18:00 10/26/24 11:59 0.5 MG Bumetanide 1 mg BIDD IV 10/25/24 18:00 10/25/24 17:49 1 MG Dextrose 1,000 ml @ 50 mls/hr Q20H IV 10/26/24 11:30 10/26/24 12:32 50 MLS/HR Amino Acids 0 ml @ 0 mls/hr PER PHARMACY IV 10/26/24 22:00 Amino Acids/ Electrolytes/ Dextrose 1,000 ml @ 41 mls/hr DAILY@2200 IV 10/26/24 22:00 Examination: GENERAL:Abnormal, LUNGS:Abnormal, MSK:Abnormal, NEURO:Abnormal laboratory and microbiology Laboratory Tests 10/26/24 02:34 Test 10/26/24 02:34 Range/Units Serum Glucose 125 H 74-106 mg/dL Microbiology Date/Time Source Procedure Growth Status 10/20/24 16:30 Blood Blood Culture - Final NO GROWTH AFTER 5 DAYS OF INCUBATION. Complete 10/16/24 17:40 Catheter Tip Aerobic Culture - Final Complete 10/16/24 09:39 Penis Aerobic Culture - Final Methicillin Resistant S.aureus Presumptive Hellen tropicalis Complete 10/14/24 22:10 Voided Urine Urine Culture - Final Presumptive Hellen tropicalis Complete 10/10/24 16:45 Sputum Expectorated Sputum Gram Stain - Final Complete 10/10/24 16:45 Sputum Expectorated Sputum Respiratory Culture - Final Complete Problem List/Assessment/Plan Problem List/Assessment/Plan Acute kidney injury multifactorial hemodynamically mediated, FeNa < 1% Acute respiratory failure, patient intubated on ventilator/extubated Vancomycin nephrotoxicity Septic shock Acute CVA MRSA bacteremia Bacterial endocarditis Lower extremity MRSA wound infection BPH status post TURP with indwelling Kan catheter d History of methamphetamine abuse Hypoalbuminemia Metabolic acidosis Hypernatremia recs extubated,, on high-flow nasal cannula Bumex b.i.d. IV 1mg /off Bumex drip--titrate diuretics as needed D5W IV for maintenance and sodium correction at low rate We will follow closely on iv abx Plan discussed with: Other My Orders My Orders Orders - XUAN MATTHEWS MD Procedure Category Date Status Time D5w 5% (Dextrose 5%) PHA 10/26/24 In Process 11:30 Dietary Evaluation Review Comments: 1) Add cardiac restriction to 60g CCHO diet 2) Initiate Glucerna qd. Encourage optimal PO intake 3) Follow-up with urology and surgery 4) Follow-up with director social welfare r/t methamphetamine abuse 5) Continue to monitor I&O, labs, and skin integrity Expected Outcomes/Goals: 1) appetite and labs to improve 2) wound to improve 3) f/u in 3-5 days XUAN MATTHEWS MD Oct 26, 2024 17:48
[2024-10-26] MEDS: BUMETANIDE 1mg/4ml VIAL (0.25mg/ml) IV SCH ×2 (18:00→20:30)
--- NOTE | 2024-10-26 21:03 | DVHPN2 ---
Progress Note - Dictate Date Seen: Oct 26, 2024 Medical Necessity Reason Pt with a Central, PICC or Fol: No Subjective No new complaints; stool for occult blood negative, no active GI bleeding He is extubated; somewhat altered requiring a sitter Chest x-ray imaging report reviewed. Moderate multifocal opacities. More pronounced in the right lower lung. Status post extubation on October 23, 2024. Currently on supplemental oxygen 10 L/min via [employer] Multiple bowel movements recorded Currently patient does not have an NG-tube and has not been getting feedings since yesterday vital signs Vital Sign Date Time Temp Pulse Resp B/P (MAP) Pulse Ox O2 Delivery O2 Flow Rate FiO2 10/26/24 20:30 136/90 10/26/24 20:00 99.3 90 24 97 99.3 10/26/24 20:00 Hi-Flow Heated NC+ 60 75 75 Total Intake and Output 10/25/24 10/25/24 10/26/24 14:59 22:59 06:59 Intake Total 600 ml 250 ml 250 ml Output Total 750 ml 920 ml Balance 600 ml -500 ml -670 ml medications Current Medications Medications Dose Ordered Sig/Dion Route Start Time Stop Time Status Last Admin Dose Admin Acetaminophen 650 mg Q6HP PRN [place] 10/10/24 10:00 10/10/24 15:18 650 MG Midazolam HCl 50 ml @ 1 mls/hr Q24H IV 10/10/24 17:15 10/22/24 23:04 6 MLS/HR Norepinephrine Bitartrate 250 ml @ 3.75 mls/hr Q24H IV 10/10/24 17:45 10/15/24 04:04 3.75 MLS/HR Diagnostic Test (Pha) 1 strip Q6HR 10/11/24 00:00 10/26/24 12:01 1 STRIP Insulin Human Regular FOLLOW SLIDING SCALE Q6HR SC 10/11/24 00:00 10/26/24 18:05 2 UNITS Dextrose 50 ml UD IV 10/10/24 22:00 Amino Acids 0 ml @ 0 mls/hr PER PHARMACY IV 10/10/24 19:00 UNV Daptomycin 750 mg/ Sodium Chloride 50 ml @ 100 mls/hr DAILY IV 10/14/24 10:00 10/26/24 10:17 100 MLS/HR Ceftaroline Fosamil 600 mg/ Sodium Chloride 250 ml @ 250 mls/hr Q8H IV 10/19/24 18:00 10/26/24 17:37 250 MLS/HR Pantoprazole Sodium 40 mg DAILY IV 10/21/24 08:30 10/26/24 10:16 40 MG Ondansetron HCl 4 mg Q4HPRN PRN IV 10/24/24 02:00 10/24/24 20:08 4 MG Enteral Nutritional Formula 1,000 ml 50ML/HR GT 10/24/24 09:30 Enoxaparin Sodium 40 mg DAILY SC 10/24/24 10:00 10/26/24 10:17 40 MG Aspirin 300 mg DAILY CO 10/25/24 10:00 Acetylcysteine 100 mg Q6HR NEB 10/25/24 18:00 10/26/24 18:11 100 MG Albuterol 2.5 mg Q6HR NEB 10/25/24 18:00 10/26/24 18:10 2.5 MG Ipratropium [place] 0.5 mg Q6HR NEB 10/25/24 18:00 10/26/24 18:10 0.5 MG Dextrose 1,000 ml @ 50 mls/hr Q20H IV 10/26/24 11:30 10/26/24 12:32 50 MLS/HR Amino Acids 0 ml @ 0 mls/hr PER PHARMACY IV 10/26/24 22:00 Amino Acids/ Electrolytes/ Dextrose 1,000 ml @ 41 mls/hr DAILY@2200 IV 10/26/24 22:00 Bumetanide 2 mg BID@0800,2000 IV 10/26/24 08:00 10/26/24 20:30 2 MG objective General: RASS -3, afebrile, mucosae are moist Cardiovascular: Normal S1 and S2. No murmurs, gallops or rubs Respiratory: Mechanically assisted ventilation, equal bilateral airway entree. Clear lung sounds on auscultation Abdomen: Soft, nontender, no organomegaly, sluggish bowel sounds MSK/skin: Mobilization of limbs cannot be evaluated. Skin is dry and warm. bilateral pedal edema +, ulceration in the bottom of the right great toe. Neurological: Orientation cannot be assessed. No apparent motor no sensitive deficits. Pupils are isocoric and reactive laboratory and microbiology Laboratory Tests 10/26/24 02:34 Test 10/26/24 02:34 Range/Units Serum Glucose 125 H 74-106 mg/dL Problems(with codes): (1) Psoas muscle abscess (2) Septic arthritis (3) ABSCESS LEFT INNER ARM I & D (4) Type 2 diabetes mellitus with hyperglycemia (5) Abscess of left foot (6) Fractured toe (7) DKA (diabetic ketoacidosis) Prognosis Plan Nurse reports that the patient will not allow repeat NG tube insertion at this time Start Clinimix at 42 mL/hour I will follow up patient with you Overall prognosis remains guarded Dietary Evaluation Review Comments: 1) Add cardiac restriction to 60g CCHO diet 2) Initiate Glucerna qd. Encourage optimal PO intake 3) Follow-up with urology and surgery 4) Follow-up with dialysis social worker r/t methamphetamine abuse 5) Continue to monitor I&O, labs, and skin integrity Expected Outcomes/Goals: 1) appetite and labs to improve 2) wound to improve 3) f/u in 3-5 days Plan discussed with: Patient, Other (ICU Nurse) ED BARAHONA MD Oct 26, 2024 21:03
[2024-10-26] MEDS: AMINO ACID INFUSION IN D10W 1,000 ML IV SCH (21:19)
[2024-10-26] MEDS ORDERED: CLINIMIX PER PHARMACY 0 ML IV SCH (22:00)
[2024-10-27] VITALS (40 sets, daily range): BP systolic 117–150; BP diastolic 81–99; PULSE 84–107; RESP 13–26; TEMP 99–99.5; O2SAT 86–100
[2024-10-27 00:47] LABS: Magnesium 1.6 mg/dL (1.6-2.6); Potassium 2.8 mmol/L (3.5-5.1)
[2024-10-27] MEDS: POTASSIUM CHL 20MEQ/100ML 100 ML IV SCH ×3 (01:02→22:17)
--- NOTE | 2024-10-27 05:40 | DVH ---
CHEST RADIOGRAPH Indication: oxygen requirements Technique: Single frontal view of the chest was obtained COMPARISON: XY CHEST PORTABLE on DOS: 10/26/24, XY CHEST PORTABLE on DOS: 10/25/24, XY CHEST PORTABLE o n DOS: 10/24/24, XY CHEST PORTABLE on DOS: 10/24/24, XY CHEST PORTABLE on DOS: 10/23/24 FINDINGS: Lines and Tubes: Left internal jugular central venous catheter unchanged. Lungs: Stable to mildly progressive extensive multifocal bilateral pulmonary airspace disease in all lung zones. Suspected small left pleural effusion. Cardiomediastinal contours: Unremarkable Bones: Unremarkable IMPRESSION: 1. Stable to mildly progressive extensive multifocal bilateral pulmonary airspace disease in all lung zones. 2. Suspected small left pleural effusion. 3. Left IJ catheter.
[2024-10-27 07:18] LABS: Hematocrit 20.7 % (41.0-53.0); Mean Corpuscular Hemoglobin 28.3 pg (28.0-32.0); Mean Corpuscular Volume 84.1 fL (80.0-100.0); Nucleated Red Blood Cells % 0.0 %
[2024-10-27 07:21] LABS: Hemoglobin 7.0 g/dL (13.5-17.5)
[2024-10-27 07:35] LABS: Alkaline Phosphatase 56 U/L (46-116); Anion Gap 11 (5-15); BUN/Creatinine Ratio 11.3 (10.0-20.0); Blood Urea Nitrogen 13 mg/dL (9-23); Carbon Dioxide 26 mmol/L (20-31)
[2024-10-27 07:39] LABS: Alanine Aminotransferase < 9 U/L (7-40); Albumin 2.0 g/dL (3.2-4.8); Bilirubin, Total 0.2 mg/dL (0.2-1.0); Calcium 6.6 mg/dL (8.7-10.4); Chloride 114 mmol/L (98-107); Glucose 178 mg/dL (74-106); Magnesium 1.4 mg/dL (1.6-2.6); Potassium 2.7 mmol/L (3.5-5.1); Sodium 151 mmol/L (136-145); Total Protein 5.5 g/dL (5.7-8.2)
[2024-10-27 07:50] LABS: Base Excess 7.9 mmol/L (-2.0-3.0)
--- NOTE | 2024-10-27 08:36 | DVHPN2 ---
[facility] DOS: 10/26/2024 Patient seen and examined at bedside. Currently on supplemental oxygen Overnight events reviewed. HPI: A 39-year-old male with past medical history of diabetes mellitus, MRSA of the urine, hyperlipidemia, and methamphetamine abuse who presented to ED on 10/02/24 with complaint of fever. Patient reported experiencing fever, associated with generalized weakness, abdominal pain, presented with Kan catheter in place due to recent prostate surgery. Patient was seen and evaluated in the ED. Workup showed WBC 6.1, hemoglobin 9.5, hematocrit 28.7, platelets 203, sodium 130, potassium 4.0, BUN 23, creatinine 1.12, glucose 382, calcium 8.5, albumin 3.1. O2 saturation was 95% on room air. Abdomen/pelvis CT revealing evidence of left sacroiliitis with gas and fluid extending into left pelvic muscles likely representing abscess; rectal wall thickening correlate for symptoms of proctitis; Kan catheter decompressed urinary bladder with wall thickening; hypodense appearance of the mildly enlarged prostate, cystitis and prostatitis possible. Patient was started on IV antibiotic regimen vancomycin, and admitted for further care. Pulmonary consultation was requested for evaluation and management of acute hypoxic respiratory failure. Past Medical History DM, HLD, MRSA of urine, Methamphetamine abuse Past Surgical History Prostate surgery Medications: Reviewed. Allergies: No known drug allergies. Family History Diabetes mellitus Social History The patient lives at home, denies smoking, alcohol or illicit drugs abuse Reviewed: Care Plan Changes from previous H/P or p: No Changes General: Per HPI Eyes: No Pain, No Vision change, No Conjunctivae inflammation, No Eyelid inflammation, No Other, No Redness ENT: No Ear pain, No Ear discharge, No Nose pain, No Nose discharge, No Nose congestion, No Mouth pain, No Mouth swelling, No Throat pain, No Throat swelling, No Other Cardiovascular: No Chest Pain, No Palpitations, No Orthopnea, No Paroxysmal Noc. Dyspnea, No Edema, No Lt Headedness, No Other Respiratory: No Cough, No Dry, No Shortness of breath, No SOB with excertion, No Wheezing, No Hemoptysis, No Pleuritic Pain, No Sputum, No Other Gastrointestinal: No Nausea, No Vomiting; Abdominal Pain; No Diarrhea, No Constipation, No Melena, No Hematochezia, No Other Genitourinary: No Dysuria, No Frequency, No Incontinence, No Hematuria, No Retention; Other (Kan catheter in place) Musculoskeletal: No other, No neck pain, No shoulder pain, No arm pain, No back pain, No hand pain, No leg pain, No foot pain Skin: No Rash, No Lesions, No Jaundice, No Bruising, No Other Objective Vitals Vital Signs Date Time Temp Pulse Resp B/P (MAP) Pulse Ox O2 Delivery O2 Flow Rate FiO2 10/27/24 08:00 99.0 88 16 130/87 (101) 98 99.0 10/27/24 07:30 Hi-Flow Heated NC+ 60 85 85 Intake/Output Intake and Output 10/27/24 07:00 Intake Total 2219 ml Output Total 2000 ml Balance 219 ml Intake Oral 0 ml IV Total 2219 ml Output Urine Total 1950 ml Stool Total 50 ml General Appearance: Alert, Oriented X3, Cooperative HEENT: Atraumatic, PERRLA, EOMI, Mucous membr. moist/pink Neck: Supple Lungs: Clear to auscultation, Normal air movement Cardiovascular: Regular rate, Normal S1, Normal S2, No murmurs, Gallops, Rubs Abdomen: Normal bowel sounds, Soft, No tenderness Neuro: Cranial nerves 3-12 NL Psych/Mental Status: Mental status NL Medications Current Medications Medications Dose Ordered Sig/Dion Route Start Time Stop Time Status Last Admin Dose Admin Acetaminophen 650 mg Q6HP PRN ID 10/10/24 10:00 10/10/24 15:18 650 MG Midazolam HCl 50 ml @ 1 mls/hr Q24H IV 10/10/24 17:15 10/22/24 23:04 6 MLS/HR Norepinephrine Bitartrate 250 ml @ 3.75 mls/hr Q24H IV 10/10/24 17:45 10/15/24 04:04 3.75 MLS/HR Diagnostic Test (Pha) 1 strip Q6HR 10/11/24 00:00 10/27/24 06:00 1 STRIP Insulin Human Regular FOLLOW SLIDING SCALE Q6HR SC 10/11/24 00:00 10/27/24 06:53 4 UNITS Dextrose 50 ml UD IV 10/10/24 22:00 Amino Acids 0 ml @ 0 mls/hr PER PHARMACY IV 10/10/24 19:00 UNV Daptomycin 750 mg/ Sodium Chloride 50 ml @ 100 mls/hr DAILY IV 10/14/24 10:00 10/26/24 10:17 100 MLS/HR Ceftaroline Fosamil 600 mg/ Sodium Chloride 250 ml @ 250 mls/hr Q8H IV 10/19/24 18:00 10/27/24 02:07 250 MLS/HR Pantoprazole Sodium 40 mg DAILY IV 10/21/24 08:30 10/26/24 10:16 40 MG Ondansetron HCl 4 mg Q4HPRN PRN IV 10/24/24 02:00 10/24/24 20:08 4 MG Enteral Nutritional Formula 1,000 ml 50ML/HR GT 10/24/24 09:30 Enoxaparin Sodium 40 mg DAILY SC 10/24/24 10:00 10/26/24 10:17 40 MG Aspirin 300 mg DAILY ID 10/25/24 10:00 Acetylcysteine 100 mg Q6HR NEB 10/25/24 18:00 10/27/24 06:27 100 MG Albuterol 2.5 mg Q6HR NEB 10/25/24 18:00 10/27/24 06:27 2.5 MG Ipratropium [place] 0.5 mg Q6HR NEB 10/25/24 18:00 10/27/24 06:27 0.5 MG Dextrose 1,000 ml @ 50 mls/hr Q20H IV 10/26/24 11:30 10/26/24 12:32 50 MLS/HR Amino Acids 0 ml @ 0 mls/hr PER PHARMACY IV 10/26/24 22:00 Amino Acids/ Electrolytes/ Dextrose 1,000 ml @ 41 mls/hr DAILY@2200 IV 10/26/24 22:00 10/26/24 21:19 41 MLS/HR Bumetanide 2 mg BID@0800,2000 IV 10/26/24 08:00 10/26/24 20:30 2 MG Laboratory Results Laboratory Tests 10/27/24 06:50 Chemistry Test 10/26/24 23:45 10/27/24 06:50 Magnesium Level 1.6 mg/dL (1.6-2.6) 1.4 mg/dL (1.6-2.6) L Albumin 2.0 g/dL (3.2-4.8) L Calcium Level 6.6 mg/dL (8.7-10.4) L Phosphorus Level 1.8 mg/dL (2.4-5.1) L Total Protein 5.5 g/dL (5.7-8.2) L LFT Test 10/27/24 06:50 Alanine Aminotransferase (ALT) < 9 U/L (7-40) Alkaline Phosphatase 56 U/L (46-116) Aspartate Amino Transferase (AST) 14 U/L (13-40) Total Bilirubin 0.2 mg/dL (0.2-1.0) Urinalysis Test 10/14/24 10:42 10/14/24 22:10 Urine Sodium 21 mmol/L (40-220) L Urine Color Light-orange (Yellow) Urine Clarity Ex.turbid (Clear) Urine pH 5.0 (5.0-9.0) Urine Specific [place] 1.017 (1.001-1.035) Urine Protein 1+ (Negative) H Urine Ketones Negative (Negative) Urine Blood 2+ /uL (Negative) H Urine Nitrite Negative (Negative) Urine Bilirubin Negative (Negative) Urine Urobilinogen Normal mg/dL (Negative) Urine Leukocyte Esterase 3+ /uL (Negative) Urine RBC 416 /hpf (0 - 3) Urine Microscopic WBC 354 /HPF (0-3) H Urine Squamous Epithelial Cells None seen /hpf (<5) Urine Bacteria Mod /hpf (None Seen) H Urine Hyaline Casts Many /lpf (0 - 2) Urine Mucus Few (None Seen) Urine Yeast with Hyphae Present /hpf Urine Yeast (Budding) Loaded /hpf (None Seen) Urine Creatinine 168.66 mg/dL (30.0-125.0) H Urine Protein/Creatinine Ratio 0.94 Urine Glucose Normal mg/dL (Normal) Urine Total Protein 158.7 mg/dL (1-14) H Blood Gas Results Test 10/27/24 07:37 Arterial Blood pH 7.599 (7.350-7.450) FiO2 % 100.0 Microbiology Microbiology Date/Time Source Procedure Growth Status 10/20/24 16:30 Blood Blood Culture - Final NO GROWTH AFTER 5 DAYS OF INCUBATION. Complete 10/16/24 17:40 Catheter Tip Aerobic Culture - Final Complete 10/16/24 09:39 Penis Aerobic Culture - Final Methicillin Resistant S.aureus Presumptive Hellen tropicalis Complete 10/14/24 22:10 Voided Urine Urine Culture - Final Presumptive Hellen tropicalis Complete 10/10/24 16:45 Sputum Expectorated Sputum Gram Stain - Final Complete 10/10/24 16:45 Sputum Expectorated Sputum Respiratory Culture - Final Complete Assessment/Plan Assessment/Plan Impression: Acute hypoxic respiratory failure Atelectasis Mucus plugging JAYLEEN secondary to vancomycin toxicity Acute metabolic encephalopathy secondary to ischemic stroke Septic emboli due to persistent MRSA bacteremia Anemia, normocytic Persistent MRSA bacteremia 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 Suspected small left pleural effusion. Left IJ catheter. Head of bed elevation Aspiration precautions Continue antibiotics ID recommendations appreciated Incentive spirometry Monitor renal function. Monitor electrolytes. Supplement as necessary. Magnesium supplementation Clinimix for nutritional support Monitor hemoglobin - currently 7.0 g/dL Transfuse if less than 7.0 g/dL. Labs and imaging reviewed. Rest of plan as noted below. Plan: Chest x-ray imaging report reviewed. Moderate multifocal opacities. More pronounced in the right lower lung. Status post extubation on October 23, 2024. Continue supplemental oxygen Keep O2 saturation above 92%. Pressors as necessary for hemodynamic support. Titrate to keep MAP above 65 mmHg/SBP above 90 mmHg. Continue antibiotics. F/u cultures. Monitor renal function due to Acute kidney injury. Monitor electrolytes. Supplement as necessary. Supplement magnesium and calcium as necessary. Monitor hemoglobin closely Transfuse if less than 7.0 g/dL. Nutritional support. Accucheks, ISS. GI/DVT prophylaxis. Condition: Critical Prognosis: Poor given multiple comorbidities. Rest of plan per hospitalist and other consultants. A total of 35 minutes of critical care time was spent reviewing the patient record, examining the patient, making a diagnostic and therapeutic plan, discussing this plan with the medical personnel, following up on diagnostic studies and following the patient for clinical stability excluding any and all procedures. At least 50% of this time was spent in direct, [id number] contact. Thank you for allowing me to participate in this patient's care. Further recommendations will depend on patient's clinical course. Please do not hesitate to contact me if you have any questions or concerns. This medical document was created using an electronic medical record system with [employer] system. Although this document has been carefully reviewed, there may still be some phonetic and typographical errors. These areas are purely typographical due to imperfections of the software programs, and do not reflect any compromise in the patient's medical care. Plan discussed with: Other (RN) My Orders Orders - ALBARO MONTOYA MD Procedure Category Date Status Time Abg W/ Co-Ox RT 10/27/24 Logged 05:55 Date of Service: Oct 26, 2024 Billing Provider: ALBARO MONTOYA MD Common Visit Codes: [id number] INP/OBS CARE(HIGH) ALBARO MONTOYA MD Oct 27, 2024 08:36
[2024-10-27] MEDS ORDERED: POTASSIUM CHLORIDE 80 MEQ, LIDOCAINE 1% (LOCAL ANESTH.) 6 ML in SODIUM CHL 0.9% 500 ML IV ONE (09:15)
[2024-10-27] MEDS: MAGNESIUM SULFATE 1GM/100ML 100 ML IV SCH (10:11)
--- NOTE | 2024-10-27 10:14 | DVHPN2 ---
Progress Note Date Seen: Oct 27, 2024 Medical Necessity Reason Pt with a Central, PICC or Fol: No Subjective Patient reports: Feels worse (on highflo) Objective vital signs Vital Sign Date Time Temp Pulse Resp B/P (MAP) Pulse Ox O2 Delivery O2 Flow Rate FiO2 10/27/24 09:42 92 22 95 55.0 85 10/27/24 08:00 99.0 130/87 (101) 99.0 10/27/24 07:30 Hi-Flow Heated NC+ Total Intake and Output 10/26/24 10/26/24 10/27/24 15:00 23:00 07:00 Intake Total 550 ml 482 ml 1187 ml Output Total 550 ml 1450 ml Balance 550 ml -68 ml -263 ml medications Current Medications Medications Dose Ordered Sig/Dion Route Start Time Stop Time Status Last Admin Dose Admin Acetaminophen 650 mg Q6HP PRN TX 10/10/24 10:00 10/10/24 15:18 650 MG Midazolam HCl 50 ml @ 1 mls/hr Q24H IV 10/10/24 17:15 10/22/24 23:04 6 MLS/HR Norepinephrine Bitartrate 250 ml @ 3.75 mls/hr Q24H IV 10/10/24 17:45 10/15/24 04:04 3.75 MLS/HR Diagnostic Test (Pha) 1 strip Q6HR 10/11/24 00:00 10/27/24 06:00 1 STRIP Insulin Human Regular FOLLOW SLIDING SCALE Q6HR SC 10/11/24 00:00 10/27/24 06:53 4 UNITS Dextrose 50 ml UD IV 10/10/24 22:00 Amino Acids 0 ml @ 0 mls/hr PER PHARMACY IV 10/10/24 19:00 UNV Daptomycin 750 mg/ Sodium Chloride 50 ml @ 100 mls/hr DAILY IV 10/14/24 10:00 10/26/24 10:17 100 MLS/HR Ceftaroline Fosamil 600 mg/ Sodium Chloride 250 ml @ 250 mls/hr Q8H IV 10/19/24 18:00 10/27/24 02:07 250 MLS/HR Pantoprazole Sodium 40 mg DAILY IV 10/21/24 08:30 10/26/24 10:16 40 MG Ondansetron HCl 4 mg Q4HPRN PRN IV 10/24/24 02:00 10/24/24 20:08 4 MG Enteral Nutritional Formula 1,000 ml 50ML/HR GT 10/24/24 09:30 Enoxaparin Sodium 40 mg DAILY SC 10/24/24 10:00 10/26/24 10:17 40 MG Aspirin 300 mg DAILY TX 10/25/24 10:00 Acetylcysteine 100 mg Q6HR NEB 10/25/24 18:00 10/27/24 06:27 100 MG Albuterol 2.5 mg Q6HR NEB 10/25/24 18:00 10/27/24 06:27 2.5 MG Ipratropium [place] 0.5 mg Q6HR NEB 10/25/24 18:00 10/27/24 06:27 0.5 MG Dextrose 1,000 ml @ 50 mls/hr Q20H IV 10/26/24 11:30 10/26/24 12:32 50 MLS/HR Amino Acids 0 ml @ 0 mls/hr PER PHARMACY IV 10/26/24 22:00 Amino Acids/ Electrolytes/ Dextrose 1,000 ml @ 41 mls/hr DAILY@2200 IV 10/26/24 22:00 10/26/24 21:19 41 MLS/HR Bumetanide 2 mg BID@0800,2000 IV 10/26/24 08:00 10/26/24 20:30 2 MG Magnesium Sulfate/ Dextrose 100 ml @ 100 mls/hr Q1HR IV 10/27/24 10:00 10/27/24 13:59 Potassium Chloride 100 ml @ 50 mls/hr Q2H IV 10/27/24 10:15 UNV Examination: GENERAL:Abnormal, LUNGS:Abnormal laboratory and microbiology Laboratory Tests 10/27/24 06:50 Test 10/27/24 06:50 Range/Units Serum Glucose 178 H 74-106 mg/dL Microbiology Date/Time Source Procedure Growth Status 10/20/24 16:30 Blood Blood Culture - Final NO GROWTH AFTER 5 DAYS OF INCUBATION. Complete 10/16/24 17:40 Catheter Tip Aerobic Culture - Final Complete 10/16/24 09:39 Penis Aerobic Culture - Final Methicillin Resistant S.aureus Presumptive Hellen tropicalis Complete 10/14/24 22:10 Voided Urine Urine Culture - Final Presumptive Hellen tropicalis Complete 10/10/24 16:45 Sputum Expectorated Sputum Gram Stain - Final Complete 10/10/24 16:45 Sputum Expectorated Sputum Respiratory Culture - Final Complete Problem List/Assessment/Plan Problem List/Assessment/Plan Acute kidney injury multifactorial hemodynamically mediated, FeNa < 1% Acute respiratory failure, patient intubated on ventilator/extubated Vancomycin nephrotoxicity Septic shock Acute CVA MRSA bacteremia Bacterial endocarditis Lower extremity MRSA wound infection BPH status post TURP with indwelling Kan catheter d History of methamphetamine abuse Hypoalbuminemia multiple electrolyte abnormalities- hypokalemia, hypophosphatemia, hypoMg, hypernatremia extubated,, on high-flow nasal cannula D5W IV /free water potassium replacement, Mg, Phos replacement now on IV bumex dose reduction on iv abx Plan discussed with: Other (mother) Dietary Evaluation Review Comments: 1) Add cardiac restriction to 60g CCHO diet 2) Initiate Glucerna qd. Encourage optimal PO intake 3) Follow-up with urology and surgery 4) Follow-up with bilingual social worker r/t methamphetamine abuse 5) Continue to monitor I&O, labs, and skin integrity Expected Outcomes/Goals: 1) appetite and labs to improve 2) wound to improve 3) f/u in 3-5 days Critical Care Time (mins): 35 MEEK DEL CID MD Oct 27, 2024 10:14
[2024-10-27] MEDS ORDERED: POTASSIUM CHL 20MEQ/100ML 100 ML IV SCH ×2 (10:15→21:30)
--- NOTE | 2024-10-27 10:33 | DVHPNRES ---
Progress Note Date Seen: Oct 27, 2024 Resident Creating Document: ERNIE RONDON RESDIENT Medical Necessity Reason Pt with a Central, PICC or Fol: No Subjective Review of Systems Seen and examined at the bedside. Patient is on high-flow nasal cannula and agitated. Objective vital signs Vital Sign Date Time Temp Pulse Resp B/P (MAP) Pulse Ox O2 Delivery O2 Flow Rate FiO2 10/27/24 09:42 92 22 95 55.0 85 10/27/24 08:00 99.0 130/87 (101) 99.0 10/27/24 07:30 Hi-Flow Heated NC+ Total Intake and Output 10/26/24 10/26/24 10/27/24 14:59 22:59 06:59 Intake Total 550 ml 441 ml 1278 ml Output Total 550 ml 1450 ml Balance 550 ml -109 ml -172 ml medications Current Medications Medications Dose Ordered Sig/Dion Route Start Time Stop Time Status Last Admin Dose Admin Acetaminophen 650 mg Q6HP PRN NM 10/10/24 10:00 10/10/24 15:18 650 MG Midazolam HCl 50 ml @ 1 mls/hr Q24H IV 10/10/24 17:15 10/22/24 23:04 6 MLS/HR Norepinephrine Bitartrate 250 ml @ 3.75 mls/hr Q24H IV 10/10/24 17:45 10/15/24 04:04 3.75 MLS/HR Diagnostic Test (Pha) 1 strip Q6HR 10/11/24 00:00 10/27/24 06:00 1 STRIP Insulin Human Regular FOLLOW SLIDING SCALE Q6HR SC 10/11/24 00:00 10/27/24 06:53 4 UNITS Dextrose 50 ml UD IV 10/10/24 22:00 Amino Acids 0 ml @ 0 mls/hr PER PHARMACY IV 10/10/24 19:00 UNV Daptomycin 750 mg/ Sodium Chloride 50 ml @ 100 mls/hr DAILY IV 10/14/24 10:00 10/26/24 10:17 100 MLS/HR Ceftaroline Fosamil 600 mg/ Sodium Chloride 250 ml @ 250 mls/hr Q8H IV 10/19/24 18:00 10/27/24 02:07 250 MLS/HR Pantoprazole Sodium 40 mg DAILY IV 10/21/24 08:30 10/26/24 10:16 40 MG Ondansetron HCl 4 mg Q4HPRN PRN IV 10/24/24 02:00 10/24/24 20:08 4 MG Enteral Nutritional Formula 1,000 ml 50ML/HR GT 10/24/24 09:30 Enoxaparin Sodium 40 mg DAILY SC 10/24/24 10:00 10/26/24 10:17 40 MG Aspirin 300 mg DAILY NM 10/25/24 10:00 Acetylcysteine 100 mg Q6HR NEB 10/25/24 18:00 10/27/24 06:27 100 MG Albuterol 2.5 mg Q6HR NEB 10/25/24 18:00 10/27/24 06:27 2.5 MG Ipratropium [place] 0.5 mg Q6HR NEB 10/25/24 18:00 10/27/24 06:27 0.5 MG Dextrose 1,000 ml @ 50 mls/hr Q20H IV 10/26/24 11:30 10/26/24 12:32 50 MLS/HR Amino Acids 0 ml @ 0 mls/hr PER PHARMACY IV 10/26/24 22:00 Amino Acids/ Electrolytes/ Dextrose 1,000 ml @ 41 mls/hr DAILY@2200 IV 10/26/24 22:00 10/26/24 21:19 41 MLS/HR Bumetanide 2 mg BID@0800,2000 IV 10/26/24 08:00 10/26/24 20:30 2 MG Magnesium Sulfate/ Dextrose 100 ml @ 100 mls/hr Q1HR IV 10/27/24 10:00 10/27/24 13:59 Examination General Appearance: Alert, agitated, and in respiratory distress HEENT: Atraumatic, PERRLA, EOMI, Mucous membrane moist/pink Respiratory: Bilateral coarse breath sounds Cardiovascular: Murmur heard on mitral area Abdominal: Normal bowel sounds, Soft, No tenderness, No hepatospenomegaly, No masses Extremities: No clubbing, No cyanosis, No edema, Normal pulses, No tenderness/swelling Skin: A clean wound observed on the plantar surface of right toe, sutures intact with no sign of infection laboratory and microbiology Laboratory Tests 10/27/24 06:50 Test 10/27/24 06:50 Range/Units Serum Glucose 178 H 74-106 mg/dL Microbiology Date/Time Source Procedure Growth Status 10/20/24 16:30 Blood Blood Culture - Final NO GROWTH AFTER 5 DAYS OF INCUBATION. Complete 10/16/24 17:40 Catheter Tip Aerobic Culture - Final Complete 10/16/24 09:39 Penis Aerobic Culture - Final Methicillin Resistant S.aureus Presumptive Hellen tropicalis Complete 10/14/24 22:10 Voided Urine Urine Culture - Final Presumptive Hellen tropicalis Complete 10/10/24 16:45 Sputum Expectorated Sputum Gram Stain - Final Complete 10/10/24 16:45 Sputum Expectorated Sputum Respiratory Culture - Final Complete Problem List/Assessment/Plan Problem List/Assessment/Plan 39-year-old male with past medical history of diabetes (uncontrolled), chronic diabetic ulcer, bipolar and methamphetamine use disorder, came to the hospital due to fever, generalized weakness, and abdominal pain admitted on 10/02/2024, with a primary diagnosis of infective endocarditis leading to septic emboli to the brain. Patient was extubated on 10/23/2024. NEURO: Acute metabolic encephalopathy secondary to ischemic stroke/sepsis Possible septic emboli due to persistent MRSA bacteremia History of Bipolar disorder Head CT on 10/05/2024 showed Acute left MCA territory infarct Head CT and neck CT angio on 10/06/2024 showed, No evidence of hemodynamically significant intracranial and cervical stenosis, occlusion, aneurysm or dissection Brain MRI on 10/15/2024 showed, Large area of diffusion restriction of the left posterior temporal lobe, left parietal lobe, small areas of punctate infarction along the right posterior frontal lobe to parietal lobe. Imaging pattern may be compatible with embolic phenomenon * Currently patient is agitated and on soft strain * Neurology on the board, recommended aspirin daily and Haldol p.r.n. for agitation CARDIOVASCULAR: Acute infective endocarditis of mitral valve Possible diastolic dysfunction/diastolic heart failure Possible mitral regurgitation Possible pulmonary edema due to MR * TIM 10/14/24 showed, Mitral Valve anterior leaflet has 0. 8 cm vegetation with stalk . 0.8 x 0.4 cm, no significant MR or abscess noted, LV size and function normal (EF 60%) * TTE on 10/06/2024, Left ventricular function is borderline at 45 to 50% anteroseptal hypokinesis, showed Mild aortic root enlargement. Valves appear to be structurally normal. * Multiple blood culture has been positive for MRSA, blood culture from 10/20/2024 shows no growth after 5 days * Infectious disease on the board, recommended daptomycin (started on 10/14, stopped on 10/27) and ceftaroline (started on 10/19) PULMONARY: Acute hypoxic respiratory failure, likely due to pneumonia Left-sided pleural effusion Possible aspiration pneumonia * Chest x-ray shows, diffuse multifocal bilateral pulmonary infiltration in all lung zones with suspected small left pleural effusion, worsening * Abdominopelvic CT on 10/16 showed small to moderate left and small right pleural effusion * Chest ultrasound on 10/21 showed small bilateral pleural effusions * Sputum culture from 10/10/2024 shows no growth * IR consulted for effusion, due to small size does not drain * On breathing treatment and acetyl cystine GASTROINTESTINAL: Possible proctitis Possible gastroenteritis Ascites * CT scan on 09/24/2024 showed, shows rectal wall thickening * CT abdominopelvic on 10/06 showed excess retained colorectal stool and moderate proximal mechanical small-bowel obstruction * CT on 10/16 showed, foci of air at the left psoas muscle with erosive changes at the left anterior sacroiliac joint. Findings are concerning for acute osteomyelitis/septic arthritis with left psoas muscle abscess. Recommend MRI with contrast or CT with contrast * CT in on 10/16 showed [id number] amount of ascites GENITOURINARY: JAYLEEN likely due to VMN/ vancomycin toxicity, resolved Complicated UTI, due to MRSA * History of possible prostatic abscess, status post surgery * Nephrology on the board, recommended Bumex 2 mg IV b.i.d. ENDOCRINE: Uncontrolled diabetes type 2 with HGB A1c 13.2 Diabetic foot ulcer, status post I&D on 10/15 * Scan on 10/07 showed, erosive changes involving the proximal and distal 1st phalanx with involvement of the IP joint * Deep Wound culture from 10/15 showed MRSA and Enterococcus faecalis sensitive to daptomycin * On sliding scale of insulin METABOLIC: CVA protein malnutrition Hypophosphatemia Hyperphosphatemia Hypomagnesemia Persistent hypokalemia Hyponatremia * Nephrology recommended DW 5% 50 mL/hour and free water HEME: Severe anemia, normocytic normochromic, status post 2 PRBC transfusion * Hb downtrending, today 7.0 INFECTIOUS DISEASE: Persistent MRSA bacteremia Infective endocarditis of mitral valve Infected diabetic foot ulcer Complicated UTI Possible proctitis * Infectious disease on the board, started on vancomycin and Zosyn on 10/27 MUSCULOSKELETAL: Psoas muscle abscess Possible sacroiliitis * CT scan from 09/24/2024 showed, evidence of left sacroiliitis with gas and fluid extending into left pelvic muscles likely representing abscess. Suboptimal characterization due to lack of contrast. Bilateral inguinal adenopathy is likely reactive. DIET: NPO, on Clinimix DVT prophylax: Lovenox GI prophylaxis: Protonix Bowel regimen: Code status: Full code LINES/DRAINS/ACCESS: ETT: Intubated on 10/10, extubated on 10/23 IV access: Left IJ, placed on 10/16 Drips: Off from pressor and sedated Kan catheter: Placed on 10/02 DISPOSITION: ICU status Patient's status discussed with patient's mom at the bedside. Critical care time spent more than 81 minutes, including patient care, chart review, and updating the family. Excluding any procedures. Case discussed with Dr. Galeano Plan discussed with: Patient, Other (Mother) My Orders My Orders Orders - ERNIE RONDON RESDIMARY Procedure Category Date Status Time Oxygen By High-Flow RT 10/27/24 Transmitted 07:55 Potassium Chloride PHA 10/27/24 In Process (Potassium Chloride). 09:15 Magnesium Sulfate PHA 10/27/24 In Process 1gm/100ml 10:00 Dietary Evaluation Review Comments: 1) Add cardiac restriction to 60g CCHO diet 2) Initiate Glucerna qd. Encourage optimal PO intake 3) Follow-up with urology and surgery 4) Follow-up with director social welfare r/t methamphetamine abuse 5) Continue to monitor I&O, labs, and skin integrity Expected Outcomes/Goals: 1) appetite and labs to improve 2) wound to improve 3) f/u in 3-5 days Date of Service: Oct 27, 2024 Billing Provider: DEE DEE GALEANO MD Common Visit Codes: 15820-TWFLJENE CARE 30-74 MIN, 14060-[id number] CARE-EACH +30MIN ERNIE RONDON RESDIENT Oct 27, 2024 10:33 DEE DEE GALEANO MD Oct 28, 2024 14:58
[2024-10-27] MEDS ORDERED: TPN PER PHARMACY 0 ML IV SCH (10:45)
[2024-10-27] MEDS: POTASSIUM CHL 20MEQ/100ML 100 ML IV ONE (10:54)
[2024-10-27] MEDS: POTASSIUM PHOSPHATE 44 MEQ in D5W 5% 250 ML IV ONE (11:25)
--- NOTE | 2024-10-27 13:53 | DVHPN2 ---
Progress Note Date Seen: Oct 27, 2024 Resident Creating Document: NICOLETTE ROSADO RESIDENT Medical Necessity Reason Pt with a Central, PICC or Fol: No Subjective Review of Systems Patient seen and examined at bedside Rectal tube minimal output brownish in color No nausea no vomiting Remains aphasic Objective vital signs Vital Sign Date Time Temp Pulse Resp B/P (MAP) Pulse Ox O2 Delivery O2 Flow Rate FiO2 10/27/24 12:00 22 99 Hi-Flow Heated NC+ 50 75 75 10/27/24 11:48 89 10/27/24 11:36 117/89 10/27/24 08:00 99.0 99.0 Total Intake and Output 10/26/24 10/26/24 10/27/24 15:00 23:00 07:00 Intake Total 550 ml 482 ml 1237 ml Output Total 550 ml 1450 ml Balance 550 ml -68 ml -213 ml medications Current Medications Medications Dose Ordered Sig/Dion Route Start Time Stop Time Status Last Admin Dose Admin Acetaminophen 650 mg Q6HP PRN NM 10/10/24 10:00 10/10/24 15:18 650 MG Midazolam HCl 50 ml @ 1 mls/hr Q24H IV 10/10/24 17:15 10/22/24 23:04 6 MLS/HR Diagnostic Test (Pha) 1 strip Q6HR 10/11/24 00:00 10/27/24 12:00 1 STRIP Insulin Human Regular FOLLOW SLIDING SCALE Q6HR SC 10/11/24 00:00 10/27/24 12:49 12 UNITS Dextrose 50 ml UD IV 10/10/24 22:00 Amino Acids 0 ml @ 0 mls/hr PER PHARMACY IV 10/10/24 19:00 UNV Daptomycin 750 mg/ Sodium Chloride 50 ml @ 100 mls/hr DAILY IV 10/14/24 10:00 10/27/24 10:10 100 MLS/HR Ceftaroline Fosamil 600 mg/ Sodium Chloride 250 ml @ 250 mls/hr Q8H IV 10/19/24 18:00 10/27/24 12:29 250 MLS/HR Pantoprazole Sodium 40 mg DAILY IV 10/21/24 08:30 10/27/24 10:10 40 MG Ondansetron HCl 4 mg Q4HPRN PRN IV 10/24/24 02:00 10/24/24 20:08 4 MG Enteral Nutritional Formula 1,000 ml 50ML/HR GT 10/24/24 09:30 Enoxaparin Sodium 40 mg DAILY SC 10/24/24 10:00 10/27/24 10:11 40 MG Aspirin 300 mg DAILY NM 10/25/24 10:00 Acetylcysteine 100 mg Q6HR NEB 10/25/24 18:00 10/27/24 11:34 100 MG Albuterol 2.5 mg Q6HR NEB 10/25/24 18:00 10/27/24 11:34 2.5 MG Ipratropium [place] 0.5 mg Q6HR NEB 10/25/24 18:00 10/27/24 11:34 0.5 MG Dextrose 1,000 ml @ 50 mls/hr Q20H IV 10/26/24 11:30 10/27/24 07:30 50 MLS/HR Bumetanide 2 mg BID@0800,2000 IV 10/26/24 08:00 10/27/24 11:36 2 MG Magnesium Sulfate/ Dextrose 100 ml @ 100 mls/hr Q1HR IV 10/27/24 10:00 10/27/24 13:59 10/27/24 12:29 100 MLS/HR Amino Acids 0 ml @ 0 mls/hr PER PHARMACY IV 10/27/24 10:45 Fat Emulsion Intravenous 50 ml/ Potassium Chloride 60 meq/ Potassium Acetate 10 meq/Potassium Phosphate 22 meq/ Calcium Gluconate 6.9 meq/Magnesium Sulfate 10 meq/ Multivitamins 10 ml/Chromium/ Copper/Manganese/ Zinc 1 ml/Amino Acids/Dextrose 918.3387 ml @ 38 mls/hr [id number] IV 10/27/24 22:00 10/28/24 21:59 Haloperidol Lactate 5 mg Q8HP PRN IV 10/27/24 11:45 Examination General Appearance: Alert, Oriented X1, noncooperative, No acute distress HEENT: Atraumatic, PERRLA, EOMI, Mucous membrane moist/pink Respiratory: Clear to auscultation, Normal air movement Cardiovascular: Regular rate, Normal S1, Normal S2, No murmurs, no chest wall tenderness Abdominal: Normal bowel sounds, Soft, No tenderness, No hepatospenomegaly, No masses Extremities: Mobilization of limbs cannot be evaluated. Skin is dry and warm. bilateral pedal edema +, S/P rt toe debridement and covered with dressing. Neuro: Strength at 5/5 X4 ext, Normal tone, Sensation intact, Cranial nerves 3- 12 NL, Reflexes 2+ Psych/Mental Status: Could not be assessed. laboratory and microbiology Laboratory Tests 10/27/24 06:50 Test 10/27/24 06:50 Range/Units Serum Glucose 178 H 74-106 mg/dL Microbiology Date/Time Source Procedure Growth Status 10/20/24 16:30 Blood Blood Culture - Final NO GROWTH AFTER 5 DAYS OF INCUBATION. Complete 10/16/24 17:40 Catheter Tip Aerobic Culture - Final Complete 10/16/24 09:39 Penis Aerobic Culture - Final Methicillin Resistant S.aureus Presumptive Hellen tropicalis Complete 10/14/24 22:10 Voided Urine Urine Culture - Final Presumptive Hellen tropicalis Complete 10/10/24 16:45 Sputum Expectorated Sputum Gram Stain - Final Complete 10/10/24 16:45 Sputum Expectorated Sputum Respiratory Culture - Final Complete Labs and/or images reviewed: Labs reviewed by me, Image(s) reviewed by me Problem List/Assessment/Plan Problem List/Assessment/Plan Anemia, possibly related to chronic disease with MCV 86.5 JAYLEEN likely VMN on CKD Acute hypoxic respiratory failure, on mechanical ventilation. Plans to extubate today Proctitis MRSA bacteremia Septic emboli due to above Acute left MCA stroke Infective endocarditis with mitral valve vegetations acute complicated cystitis psoas abscess? Sepsis Ruled out ileus Constipation with moderate to severe colonic volume of stool Plan: Held lactulose owing to diarrhea Continue conservative management, observation Stool occult blood negative IV Protonix b.i.d. Already on lactulose Pending MRI lower extremity Orthopedic surgeon on board Continue antibiotics consider IV iron Thank you so much for the opportunity to consult on your patient. GI team will follow the patient. In case of any questions or concerns please feel free to reach out. Plan discussed with Dr. Saunders Plan discussed with: Other (RN) Dietary Evaluation Review Comments: 1) Add cardiac restriction to 60g CCHO diet 2) Initiate Glucerna qd. Encourage optimal PO intake 3) Follow-up with urology and surgery 4) Follow-up with social media editor r/t methamphetamine abuse 5) Continue to monitor I&O, labs, and skin integrity Expected Outcomes/Goals: 1) appetite and labs to improve 2) wound to improve 3) f/u in 3-5 days NICOLETTE ROSADO RESIDENT Oct 27, 2024 13:53
--- NOTE | 2024-10-27 15:24 | DVHPN2 ---
Consult Progress Note Date Seen: Oct 27, 2024 Subjective Other Systems: Patient is status post extubation, on high-flow nasal cannula, is only corresponding yes and no to questions. Blood culture was negative for MRSA x2. Patient over the weekend had fevers. Repeat chest x-ray showed progressive extensive multifocal bilateral pulmonary airspace disease in all lung zones. Patient is started on TPN today. Patient's antibiotics switched to vancomycin, Zosyn. Patient is changed to DNI but not DNR. Objective vital signs Vital Sign Date Time Temp Pulse Resp B/P (MAP) Pulse Ox O2 Delivery O2 Flow Rate FiO2 10/27/24 13:51 96 19 95 50.0 70 10/27/24 12:00 Hi-Flow Heated NC+ 10/27/24 11:36 117/89 10/27/24 08:00 99.0 99.0 Total Intake and Output 10/26/24 10/26/24 10/27/24 15:00 23:00 07:00 Intake Total 550 ml 482 ml 1237 ml Output Total 550 ml 1450 ml Balance 550 ml -68 ml -213 ml GEN: Patent s/p extubation on 6L NC oxygen. HEENT: NC/AT; MMM. CV: RRR, regular rhythm LUNGS: CTAB, no w/r/c. ABD: Soft, NT/ND, NBS, no masses or organomegaly. EXT: skin Warm, well perfused. no rashes. No clubbing, cyanosis, or edema. Right toe wrapped in gauze, chronic ulcer, checked the wounds in the sacrum and the toe unremarkable. NEURO: Alert, Awake, Orientation limited examination. medications Current Medications Medications Dose Ordered Sig/Dion Route Start Time Stop Time Status Last Admin Dose Admin Acetaminophen 650 mg Q6HP PRN [place] 10/10/24 10:00 10/10/24 15:18 650 MG Diagnostic Test (Pha) 1 strip Q6HR 10/11/24 00:00 10/27/24 12:00 1 STRIP Insulin Human Regular FOLLOW SLIDING SCALE Q6HR SC 10/11/24 00:00 10/27/24 12:49 12 UNITS Dextrose 50 ml UD IV 10/10/24 22:00 Amino Acids 0 ml @ 0 mls/hr PER PHARMACY IV 10/10/24 19:00 UNV Daptomycin 750 mg/ Sodium Chloride 50 ml @ 100 mls/hr DAILY IV 10/14/24 10:00 10/27/24 10:10 100 MLS/HR Ceftaroline Fosamil 600 mg/ Sodium Chloride 250 ml @ 250 mls/hr Q8H IV 10/19/24 18:00 10/27/24 12:29 250 MLS/HR Pantoprazole Sodium 40 mg DAILY IV 10/21/24 08:30 10/27/24 10:10 40 MG Ondansetron HCl 4 mg Q4HPRN PRN IV 10/24/24 02:00 10/24/24 20:08 4 MG Enteral Nutritional Formula 1,000 ml 50ML/HR GT 10/24/24 09:30 Enoxaparin Sodium 40 mg DAILY SC 10/24/24 10:00 10/27/24 10:11 40 MG Aspirin 300 mg DAILY VA 10/25/24 10:00 Acetylcysteine 100 mg Q6HR NEB 10/25/24 18:00 10/27/24 11:34 100 MG Albuterol 2.5 mg Q6HR NEB 10/25/24 18:00 10/27/24 11:34 2.5 MG Ipratropium [place] 0.5 mg Q6HR NEB 10/25/24 18:00 10/27/24 11:34 0.5 MG Dextrose 1,000 ml @ 50 mls/hr Q20H IV 10/26/24 11:30 10/27/24 07:30 50 MLS/HR Bumetanide 2 mg BID@0800,2000 IV 10/26/24 08:00 10/27/24 11:36 2 MG Amino Acids 0 ml @ 0 mls/hr PER PHARMACY IV 10/27/24 10:45 Fat Emulsion Intravenous 50 ml/ Potassium Chloride 60 meq/ Potassium Acetate 10 meq/Potassium Phosphate 22 meq/ Calcium Gluconate 6.9 meq/Magnesium Sulfate 10 meq/ Multivitamins 10 ml/Chromium/ Copper/Manganese/ Zinc 1 ml/Amino Acids/Dextrose 918.3387 ml @ 38 mls/hr [id number] IV 10/27/24 22:00 10/28/24 21:59 Haloperidol Lactate 5 mg Q8HP PRN IV 10/27/24 11:45 laboratory and microbiology Laboratory Tests 10/27/24 06:50 Test 10/27/24 06:50 Range/Units Serum Glucose 178 H 74-106 mg/dL Problem List/Assessment/Plan Problem List/Assessment/Plan Problem List/Assessment/Plan Mr. Velazquez is a 39-year-old male with a complex medical history including insulin-dependent diabetes mellitus, GERD, bipolar disorder, schizophrenia, chronic diabetic ulcers, dyslipidemia, MRSA urinary infection, BPH, and methamphetamine abuse presented to [facility] on 10/02/2024 with generalized weakness, fever, and abdominal discomfort. He was intubated and chemically sedated for sepsis and persistent MRSA bacteremia, requiring low-dose vasopressor support. Imaging revealed a pelvic abscess and urinalysis suggested a UTI. Despite treatment, blood cultures remained positive for MRSA through 10/09. Cardiology was consulted for possible subacute endocarditis, with plans for TIM pending improvement in mental status. ECG showed sinus tachycardia, inflammatory markers were elevated, and infectious workup for HIV, hepatitis B/C, and syphilis was negative. Recurrent MRSA bacteremia with infective endocarditis with most likely source of intrapelvic collection with foci of air at the left psoas muscle with erosive changes at the left anterior sacroiliac joint concerning for acute osteomyelitis/septic arthritis with left psoas muscle abscess. Status post ceftriaxone, linezolid, metronidazole, vancomycin, was change to daptomycin and ceftaroline on respectively 10/12/2024 and 10/13/2024. -Patient on 10/27/2024 is started on vancomycin per pharmacy, Zosyn 3.7 q.8. Patient is discontinued on daptomycin, ceftaroline. Assessment: #Persistent bacteremia with subacute endocarditis TIM found MR with 0.8 cm vegetations, improved. #CVA, left MCA territory, possible infectious cardioembolic source: MRI reveals a large area of restricted diffusion in the left posterior temporal and parietal lobes, along with small punctate infarcts in the right posterior frontal to parietal lobes, suggesting a pattern consistent with an embolic phenomenon noted on MRI. #Erosive changes at the left anterior sacroiliac joint concerning for acute osteomyelitis/septic arthritis with #Left psoas muscle abscess. #Small to moderate amount of ascites. #Small to moderate left and small right pleural effusions. #Cephalic vein thrombus; ? infectious thromboembolism #Meningitis? Possible, HSV encephalitis possible?, unable to rule out vs thromboembolic stroke. #Abdomen-pelvic abscess: Evidence of left sacroiliitis with gas and fluid extending into left pelvic muscles likely representing abscess #UTI due to possible hematogenous seeding of bacteremia #MRSA Aspiration Pneumonia, Trace bilateral pleural effusions with adjacent atelectasis and patchy posterior bibasilar pulmonary infiltrate with MRSA #Methamphetamine abuse, unknown status of IV drug abuse #Mild aortic root enlargement. Mild TR, No pericardial effusion masses or vegetations noted on TTE #Uncontrolled DM with HbA1C 13.2 #STD panel ruled out. #Watery diarrhea, 5 times, low suspicion of d c diff. Abdominal exam unremarkable. #Mild fever 100 is lower on suspicion of infectious causes as off of sedation and agitation can be contributory. Plan: #If oxygen requirement increases consider workup for aspiration pneumonia/pneumonitis. #Yet to rule out c diff and other stool infection. If low suspicion of c diff, likely a diarrhea attributed to antibiotics. Close follow up, adequate hydration. #Significant improvement in overall clinical picture, MRI still pending, If patient's renal function improved might consider CT with contrast with cautions and appropriate hydration. # 10/27/2024 patient discontinued on daptomycin,ceftaroline. Patient started on vancomycin, Zosyn. # CT head with and without contrast, CT abdomen with contrast to be considered with improving renal function, when hypoxia improves. # repeat sputum culture ordered # continue daily chest x-rays. # repeat blood cultures in 48 hours #Still source control remains a pivotal factor, looking for further input from Surgical teams. #As high risk substance abuse IV antibiotic will likely need SNF placement when patient is clinically stable for discharge. #Continue ICU level care with close follow up by Primary Team. Discussed with Dr. Solano. Infectious disease team will follow up. The patient remains overall very sick with multiorgan failure, guarded prognosis. Plan discussed with: Patient Plan discussed with: Patient Dietary Evaluation Review Comments: 1) Add cardiac restriction to 60g CCHO diet 2) Initiate Glucerna qd. Encourage optimal PO intake 3) Follow-up with urology and surgery 4) Follow-up with vp digital marketing social media and crm r/t methamphetamine abuse 5) Continue to monitor I&O, labs, and skin integrity Expected Outcomes/Goals: 1) appetite and labs to improve 2) wound to improve 3) f/u in 3-5 days SAMEER CROSS RESIDENT Oct 27, 2024 15:24
[2024-10-27] MEDS ORDERED: VANCOMYCIN PER PHARMACY 0 MG IV SCH (20:00)
[2024-10-27] MEDS: VANCOMYCIN 1.75GM/350ML IV ONE (20:30)
--- NOTE | 2024-10-27 20:45 | DVHPN2 ---
Progress Note - Dictate Date Seen: Oct 27, 2024 Medical Necessity Reason Pt with a Central, PICC or Fol: No Subjective Mr. Velazquez is a 39 years old gentleman with a history of diabetes, GERD, bipolar disorder, schizophrenia, chronic diabetic ulcer, he was brought to the [facility] on 10/02/2024 with a chief company of fever, the patient is also noticed to have altered mental status, in the CT brain scan showed evidence suggestive of left MCA territory acute stroke. I have seen and examined the patient, talked to his nurse, he is awake, eyes open, he moves the arms slightly, he maybe responsive to verbal stimuli, but is nonresponsive to verbal commands Blood culture, 10/02/2024: MRSA Blood culture, 10/03/2024: MRSA Blood culture, 10/04/2024: MRSA UDS, 10/03/2024: Amphetamine, 10/05/24: Negative Urinalysis, 10/02/2024: WBC: 30, urine leukocyte esterase: Trace WBC/HB/PLT/MCV, 10/06/2024: 5/8.7/130/82.4, 10/10/2024: 6.5/8.1/211/84.5, 10/11/2024: 6.1/7.5/176/85.9, 10/21/2024: 6/8.4/147/81.6, 10/27/2024: 9.9/7/149/84.1 PTT/INR/eight six, 10/02/2024: 12.3/1.18/34.4 Na, 10/07/2024: 144 10/10/2024: 151, 10/11/2024: 148, 10/24/2024: 146, 10/25/2024: 149 CMP, 10/05/2024: Unremarkable BUN/CR, 10/10/2024: 22/0.96, 10/11/2024: 32/1.94 GFR, 10/10/2024: 102, 10/11/2024: 44 Lactic acid, 10/24/2024: 2.1 Liver function tests, 10/11/2024: Unremarkable HGB A1c, 05/10/2023: >14 TG/HDL/LDL/HDL, 10/07/2024: 153/87/39/9 TIM, 10/14/2024: Left Ventricle: Normal LV size and function, LVEF estimated at 60% Right Ventricle: NOrmal RV size and function Left atrium: normal Right atrium: normal RA Left atrial appendage: no thrombus noted, d Aortic valve: trileaflet valve, no severe or AI Mitral Valve: structurally normal, anterior leaflet has 0. 8 cm vegetation with stalk . 0.8 x 0.4 cm, no significant MR is noted however, no abscess noted Tricuspid Valve: mild tricuspid regurgitaiton, no TS Pulmonic Valve: structurally normal, no severe PIor PS Interatrial septum: negative color flow for R to L shunt, negative bubble study Ascending aorta: no severe plaquing Echocardiogram, 10/06/2024: Technically good study. Off axis views. Limited views obtained. There appears to be biatrial enlargement and LV enlargement. Mild aortic root enlargement. Valves appear to be structurally normal. Left ventricular function is borderline at 45 to 50% anteroseptal hypokinesis.. Normal RV function. Mild TR. No pericardial effusion masses or vegetations. CT head, 10/05/2024: Acute left MCA territory infarct in left insula/temporal operculum/temporal lobe. No hemorrhage or mass effect Sedated, 10/09/2024: 1. Interval progression in evolution of left middle cerebral artery territory infarct involving the insula / temporal are operculum/ temporal lobe with associated loss of khoury-white matter differentiation and progressively diminished parenchymal attenuation. 2. No evidence of intracranial hemorrhage, mass effect, midline shift or herniation. 3. Chronic sequelae of microangiopathy and atrophic cortical volume loss. CT abdomen/pelvis, 10/06/2024: 1. Trace bilateral pleural effusions with adjacent atelectasis and patchy posterior bibasilar pulmonary infiltrate. 2. Hepatomegaly. 3. Excess retained colorectal stool and moderate proximal mechanical small-bowel obstruction. 4. Moderate gas and Kan catheter within the urinary bladder CT abdomen/pelvis, 10/16/2024: Foci of air at the left psoas muscle with erosive changes at the left anterior sacroiliac joint. Findings are concerning for acute osteomyelitis/septic arthritis with left psoas muscle abscess. Evaluated on this study is extremely limited due to lack of IV contrast and artifact. Suggest MRI with and without IV contrast for further evaluation. If MRI cannot be performed, contrast enhanced CT is suggested. Small to moderate amount of ascites. Extensive body wall edema. Small to moderate left and small right pleural effusions. Diabetes mellitus. Constipation. CTA head, neck, 10/05/2024: 1. No evidence of acute intracranial hemorrhage, mass effect or hydrocephalus. 2. No evidence of hemodynamically significant intracranial stenosis, proximal occlusion or aneurysm. 3. No evidence of hemodynamically significant cervical stenosis or dissection MRI head, 10/15/2024: 1. Large area of diffusion restriction of the left posterior temporal lobe and left parietal lobe. 2. Small areas of punctate infarction along the right posterior frontal lobe to parietal lobe. 3. Imaging pattern may be compatible with embolic phenomenon vital signs Vital Sign Date Time Temp Pulse Resp B/P (MAP) Pulse Ox O2 Delivery O2 Flow Rate FiO2 10/27/24 19:00 91 16 141/84 (103) 89 10/27/24 18:30 Hi-Flow Heated NC+ 60 85 85 10/27/24 16:00 99.2 99.2 Total Intake and Output 10/26/24 10/26/24 10/27/24 15:00 23:00 07:00 Intake Total 550 ml 482 ml 1237 ml Output Total 550 ml 1450 ml Balance 550 ml -68 ml -213 ml medications Current Medications Medications Dose Ordered Sig/Dion Route Start Time Stop Time Status Last Admin Dose Admin Acetaminophen 650 mg Q6HP PRN [place] 10/10/24 10:00 10/10/24 15:18 650 MG Diagnostic Test (Pha) 1 strip Q6HR 10/11/24 00:00 10/27/24 18:00 1 STRIP Insulin Human Regular FOLLOW SLIDING SCALE Q6HR SC 10/11/24 00:00 10/27/24 12:49 12 UNITS Dextrose 50 ml UD IV 10/10/24 22:00 Amino Acids 0 ml @ 0 mls/hr PER PHARMACY IV 10/10/24 19:00 UNV Pantoprazole Sodium 40 mg DAILY IV 10/21/24 08:30 10/27/24 10:10 40 MG Ondansetron HCl 4 mg Q4HPRN PRN IV 10/24/24 02:00 10/24/24 20:08 4 MG Enoxaparin Sodium 40 mg DAILY SC 10/24/24 10:00 10/27/24 10:11 40 MG Aspirin 300 mg DAILY CO 10/25/24 10:00 Acetylcysteine 100 mg Q6HR NEB 10/25/24 18:00 10/27/24 18:07 100 MG Albuterol 2.5 mg Q6HR NEB 10/25/24 18:00 10/27/24 18:07 2.5 MG Ipratropium [place] 0.5 mg Q6HR NEB 10/25/24 18:00 10/27/24 18:07 0.5 MG Dextrose 1,000 ml @ 50 mls/hr Q20H IV 10/26/24 11:30 10/27/24 07:30 50 MLS/HR Bumetanide 2 mg BID@0800,2000 IV 10/26/24 08:00 10/27/24 11:36 2 MG Haloperidol Lactate 5 mg Q8HP PRN IV 10/27/24 11:45 Vancomycin HCl 0 ml @ 0 mls/hr UD IV 10/27/24 20:00 UNV Piperacillin Sod/ Tazobactam Sod 100 ml @ 25 mls/hr Q8HR IV 10/27/24 22:00 Amino Acids 0 ml @ 0 mls/hr PER PHARMACY IV 10/27/24 22:00 UNV objective General: the patient is well developed and nourished. No acute distress. Intubated MUSCULOSKELETAL EXAM: Chronic ulcer in the right big toe, a small skin lesion in the left big toe (initial consult) MENTAL STATUS: Subjective SPEECH, LANGUAGE, HIGHER CORTICAL FUNCTION: Subjective CRANIAL NERVES: Pupils are equal, round and reactive. Eyes are closed. No sign of facial weakness. Sensory and motor examination is unremarkable in bilateral trigeminal distribution SENSATION: Responsive to pain in the light touch MOTOR: Muscle tone feels normal, he moves the arms in the legs REFLEXES: Deep tendon reflexes feel symmetrical. No pathological reflexes. CEREBELLAR/COORDINATION: Deferred GAIT/STATION: deferred laboratory and microbiology Laboratory Tests 10/27/24 06:50 Test 10/27/24 06:50 Range/Units Serum Glucose 178 H 74-106 mg/dL Problem List Altered mental status, secondary to Acute stroke Metabolic encephalopathy Acute respiratory failure Acute stroke Sepsis with MRSA Chronic diabetic wound, status post debridement on 10/15/2024 Endocarditis Osteomyelitis Psoas abscess History of substance abuse Assessment/Plan Monitoring Supportive treatment ICU care Follow up tests MRI lumbar spine Stabilize vitals Respiratory support Aspirin 81 mg daily/300 mg CO, on hold IV antibiotics Haldol p.r.n. for agitation DVT prophylaxis/Lovenox Infectious disease on case Need to quit substance abuse Orthopedic on case More recommendation per clinical course This medical document was created using an electronic medical record system with Triptrotting dictation system. Although this document has been carefully reviewed, there may still be some phonetic and typographical errors. These areas are purely typographical due to imperfections of the software programs, and do not reflect any compromise in the patient's medical care. Prognosis poor Dietary Evaluation Review Comments: 1) Add cardiac restriction to 60g CCHO diet 2) Initiate Glucerna qd. Encourage optimal PO intake 3) Follow-up with urology and surgery 4) Follow-up with oncology social work r/t methamphetamine abuse 5) Continue to monitor I&O, labs, and skin integrity Expected Outcomes/Goals: 1) appetite and labs to improve 2) wound to improve 3) f/u in 3-5 days Plan discussed with: Other CALEB PAYNE MD Oct 27, 2024 20:45
[2024-10-27 21:05] LABS: Anion Gap 7 (5-15)
[2024-10-27 21:11] LABS: BUN/Creatinine Ratio 15.3 (10.0-20.0); Blood Urea Nitrogen 18 mg/dL (9-23)
[2024-10-27 21:26] LABS: Calcium 7.6 mg/dL (8.7-10.4); Carbon Dioxide 32 mmol/L (20-31); Chloride 108 mmol/L (98-107); Glucose 140 mg/dL (74-106); Potassium 3.1 mmol/L (3.5-5.1); Sodium 147 mmol/L (136-145)
[2024-10-27] MEDS: AMINO ACID INFUSION IN D10W 1,000 ML IV SCH (21:35)
[2024-10-27] MEDS: PIPERACILLIN-TAZOB 3.375GM 100 ML IV SCH (21:55)
[2024-10-27] MEDS ORDERED: CLINIMIX PER PHARMACY 0 ML IV SCH (22:00)
[2024-10-27] MEDS ORDERED: TPN PER PHARMACY IV NR (22:00)
[2024-10-27] MEDS: VANCOMYCIN 1GM/250ML KIT 250 ML IV SCH (23:05)
[2024-10-28] VITALS (39 sets, daily range): BP systolic 122–145; BP diastolic 78–99; PULSE 80–93; RESP 12–36; TEMP 98–99.1; O2SAT 92–100
--- NOTE | 2024-10-28 04:43 | DVH ---
CHEST RADIOGRAPH Indication: Pneumonia Technique: Single frontal view of the chest was obtained COMPARISON: XY CHEST XRAY 1 VIEW on DOS: 10/27/24, XY CHEST PORTABLE on DOS: 10/26/24, XY CHEST PORTABL E on DOS: 10/25/24, XY CHEST PORTABLE on DOS: 10/24/24, XY CHEST PORTABLE on DOS: 10/24/24 FINDINGS: Lines and Tubes: Left internal jugular central venous catheter unchanged. Lungs: Stable appearing diffuse multifocal bilateral pulmonary airspace disease with consolidative fe atures. Pleura: No effusion. No pneumothorax. Cardiomediastinal contours: Unremarkable Bones: Unremarkable IMPRESSION: 1. Stable appearing diffuse multifocal bilateral pulmonary airspace disease with consolidative featur es. 2. Left internal jugular central venous catheter.
[2024-10-28] MEDS ORDERED: SODIUM ZIRCONIUM CYCL 10 GM PAK GT ONE (06:15)
[2024-10-28 07:14] LABS: Base Excess 6.8 mmol/L (-2.0-3.0)
[2024-10-28 07:30] LABS: Hemoglobin 7.2 g/dL (13.5-17.5)
[2024-10-28 07:32] LABS: Hematocrit 21.9 % (41.0-53.0); Mean Corpuscular Hemoglobin 28.2 pg (28.0-32.0); Mean Corpuscular Volume 85.9 fL (80.0-100.0); Nucleated Red Blood Cells % 0.1 %
[2024-10-28 07:39] LABS: Alkaline Phosphatase 66 U/L (46-116); Anion Gap 7 (5-15); BUN/Creatinine Ratio 12.7 (10.0-20.0); Blood Urea Nitrogen 15 mg/dL (9-23); Carbon Dioxide 31 mmol/L (20-31); Creatine Kinase IFCC 39 U/L (46-171); Potassium 3.6 mmol/L (3.5-5.1); Total Protein 6.3 g/dL (5.7-8.2)
[2024-10-28 07:41] LABS: Alanine Aminotransferase < 9 U/L (7-40); Albumin 2.3 g/dL (3.2-4.8); Bilirubin, Total 0.2 mg/dL (0.2-1.0); Calcium 7.4 mg/dL (8.7-10.4); Chloride 108 mmol/L (98-107); Glucose 220 mg/dL (74-106); Sodium 146 mmol/L (136-145)
[2024-10-28] MEDS ORDERED: VANCOMYCIN 1.5GM/250ML IV ONE (08:00)
[2024-10-28 08:53] LABS: Magnesium 1.9 mg/dL (1.6-2.6)
--- NOTE | 2024-10-28 09:24 | DVHPN2 ---
Progress Note Date Seen: Oct 28, 2024 Medical Necessity Reason Pt with a Central, PICC or Fol: Yes The following are medically ne: Central Line, Kan Catheter Subjective Changes from previous H/P or p: Changes (REMAINS ON HIGHFLO) Objective vital signs Vital Sign Date Time Temp Pulse Resp B/P (MAP) Pulse Ox O2 Delivery O2 Flow Rate FiO2 10/28/24 09:00 87 17 122/83 (96) 95 10/28/24 08:00 98.6 98.6 10/28/24 06:07 50.0 80 10/28/24 06:00 Hi-Flow Heated NC+ Total Intake and Output 10/27/24 10/27/24 10/28/24 15:00 23:00 07:00 Intake Total 350 ml 684 ml 1294 ml Output Total 1625 ml Balance 350 ml 684 ml -331 ml medications Current Medications Medications Dose Ordered Sig/Dion Route Start Time Stop Time Status Last Admin Dose Admin Acetaminophen 650 mg Q6HP PRN [place] 10/10/24 10:00 10/10/24 15:18 650 MG Diagnostic Test (Pha) 1 strip Q6HR 10/11/24 00:00 10/28/24 05:50 1 STRIP Insulin Human Regular FOLLOW SLIDING SCALE Q6HR SC 10/11/24 00:00 10/28/24 05:52 8 UNITS Dextrose 50 ml UD IV 10/10/24 22:00 Amino Acids 0 ml @ 0 mls/hr PER PHARMACY IV 10/10/24 19:00 UNV Pantoprazole Sodium 40 mg DAILY IV 10/21/24 08:30 10/27/24 10:10 40 MG Ondansetron HCl 4 mg Q4HPRN PRN IV 10/24/24 02:00 10/24/24 20:08 4 MG Enoxaparin Sodium 40 mg DAILY SC 10/24/24 10:00 10/27/24 10:11 40 MG Aspirin 300 mg DAILY [place] 10/25/24 10:00 Acetylcysteine 100 mg Q6HR NEB 10/25/24 18:00 10/28/24 06:06 100 MG Albuterol 2.5 mg Q6HR NEB 10/25/24 18:00 10/28/24 06:06 2.5 MG Ipratropium [place] 0.5 mg Q6HR NEB 10/25/24 18:00 10/28/24 06:06 0.5 MG Dextrose 1,000 ml @ 50 mls/hr Q20H IV 10/26/24 11:30 10/27/24 07:30 50 MLS/HR Bumetanide 2 mg BID@0800,2000 IV 10/26/24 08:00 10/27/24 21:42 2 MG Haloperidol Lactate 5 mg Q8HP PRN IV 10/27/24 11:45 Vancomycin HCl 0 ml @ 0 mls/hr UD IV 10/27/24 20:00 Piperacillin Sod/ Tazobactam Sod 100 ml @ 25 mls/hr Q8HR IV 10/27/24 22:00 10/28/24 06:10 25 MLS/HR Amino Acids 0 ml @ 0 mls/hr PER PHARMACY IV 10/27/24 22:00 Amino Acids/ Electrolytes/ Dextrose 1,000 ml @ 42 mls/hr DAILY@2200 IV 10/27/24 22:00 10/27/24 21:35 42 MLS/HR Vancomycin HCl 350 ml @ 233.333 mls/hr Q12H IV 10/28/24 09:00 Examination: GENERAL:Abnormal, LUNGS:Abnormal, ABDOMEN:Abnormal, SKIN:Abnormal laboratory and microbiology Laboratory Tests 10/28/24 05:30 Test 10/28/24 05:30 Range/Units Serum Glucose 220 H 74-106 mg/dL Microbiology Date/Time Source Procedure Growth Status 10/20/24 16:30 Blood Blood Culture - Final NO GROWTH AFTER 5 DAYS OF INCUBATION. Complete 10/16/24 17:40 Catheter Tip Aerobic Culture - Final Complete 10/16/24 09:39 Penis Aerobic Culture - Final Methicillin Resistant S.aureus Presumptive Hellen tropicalis Complete 10/14/24 22:10 Voided Urine Urine Culture - Final Presumptive Hellen tropicalis Complete 10/10/24 16:45 Sputum Expectorated Sputum Gram Stain - Final Complete 10/10/24 16:45 Sputum Expectorated Sputum Respiratory Culture - Final Complete Problem List/Assessment/Plan Problem List/Assessment/Plan Acute kidney injury multifactorial hemodynamically mediated, FeNa < 1% Acute respiratory failure, patient intubated on ventilator/extubated Vancomycin nephrotoxicity Septic shock Acute CVA MRSA bacteremia Bacterial endocarditis Lower extremity MRSA wound infection BPH status post TURP with indwelling Kan catheter d History of methamphetamine abuse Hypoalbuminemia multiple electrolyte abnormalities- hypokalemia, hypophosphatemia, hypoMg, hypernatremia extubated,, on high-flow nasal cannula D5W IV /free water potassium replacement, Mg, Phos replacement now on IV bumex dose reduction on iv abx Plan discussed with: Other (NURSE) My Orders My Orders Orders - MEEK DEL CID MD Procedure Category Date Status Time Tpn Per Pharmacy CADE 10/27/24 In Process 22:00 Tpn Per Pharmacy [facility] 10/27/24 In Process 19:11 Dietary Evaluation Review Comments: 1) Add cardiac restriction to 60g CCHO diet 2) Initiate Glucerna qd. Encourage optimal PO intake 3) Follow-up with urology and surgery 4) Follow-up with rn social services r/t methamphetamine abuse 5) Continue to monitor I&O, labs, and skin integrity Expected Outcomes/Goals: 1) appetite and labs to improve 2) wound to improve 3) f/u in 3-5 days Critical Care Time (mins): 33 MEEK DEL CID MD Oct 28, 2024 09:24
--- NOTE | 2024-10-28 10:22 | DVHPN2 ---
Progress Note Date Seen: Oct 28, 2024 Resident Creating Document: NICOLETTE ROSADO RESIDENT Medical Necessity Reason Pt with a Central, PICC or Fol: Yes The following are medically ne: Central Line, Kan Catheter Subjective Review of Systems Patient seen and examined at bedside 100 cc brownish output noted in the rectal tube Stable H&H Objective vital signs Vital Sign Date Time Temp Pulse Resp B/P (MAP) Pulse Ox O2 Delivery O2 Flow Rate FiO2 10/28/24 09:00 87 17 122/83 (96) 95 10/28/24 08:00 98.6 98.6 10/28/24 06:07 50.0 80 10/28/24 06:00 Hi-Flow Heated NC+ Total Intake and Output 10/27/24 10/27/24 10/28/24 15:00 23:00 07:00 Intake Total 350 ml 684 ml 1294 ml Output Total 1625 ml Balance 350 ml 684 ml -331 ml medications Current Medications Medications Dose Ordered Sig/Dion Route Start Time Stop Time Status Last Admin Dose Admin Acetaminophen 650 mg Q6HP PRN [place] 10/10/24 10:00 10/10/24 15:18 650 MG Diagnostic Test (Pha) 1 strip Q6HR 10/11/24 00:00 10/28/24 05:50 1 STRIP Insulin Human Regular FOLLOW SLIDING SCALE Q6HR SC 10/11/24 00:00 10/28/24 05:52 8 UNITS Dextrose 50 ml UD IV 10/10/24 22:00 Amino Acids 0 ml @ 0 mls/hr PER PHARMACY IV 10/10/24 19:00 UNV Pantoprazole Sodium 40 mg DAILY IV 10/21/24 08:30 10/27/24 10:10 40 MG Ondansetron HCl 4 mg Q4HPRN PRN IV 10/24/24 02:00 10/24/24 20:08 4 MG Enoxaparin Sodium 40 mg DAILY SC 10/24/24 10:00 10/27/24 10:11 40 MG Aspirin 300 mg DAILY [place] 10/25/24 10:00 Acetylcysteine 100 mg Q6HR NEB 10/25/24 18:00 10/28/24 06:06 100 MG Albuterol 2.5 mg Q6HR NEB 10/25/24 18:00 10/28/24 06:06 2.5 MG Ipratropium [place] 0.5 mg Q6HR NEB 10/25/24 18:00 10/28/24 06:06 0.5 MG Dextrose 1,000 ml @ 50 mls/hr Q20H IV 10/26/24 11:30 10/27/24 07:30 50 MLS/HR Bumetanide 2 mg BID@0800,2000 IV 10/26/24 08:00 10/27/24 21:42 2 MG Haloperidol Lactate 5 mg Q8HP PRN IV 10/27/24 11:45 Vancomycin HCl 0 ml @ 0 mls/hr UD IV 10/27/24 20:00 Piperacillin Sod/ Tazobactam Sod 100 ml @ 25 mls/hr Q8HR IV 10/27/24 22:00 10/28/24 06:10 25 MLS/HR Amino Acids 0 ml @ 0 mls/hr PER PHARMACY IV 10/27/24 22:00 Amino Acids/ Electrolytes/ Dextrose 1,000 ml @ 42 mls/hr DAILY@2200 IV 10/27/24 22:00 10/27/24 21:35 42 MLS/HR Vancomycin HCl 350 ml @ 233.333 mls/hr Q12H IV 10/28/24 09:00 Examination General Appearance: Alert, Oriented X1, noncooperative, No acute distress HEENT: Atraumatic, PERRLA, EOMI, Mucous membrane moist/pink Respiratory: Clear to auscultation, Normal air movement Cardiovascular: Regular rate, Normal S1, Normal S2, No murmurs, no chest wall tenderness Abdominal: Normal bowel sounds, Soft, No tenderness, No hepatospenomegaly, No masses Extremities: Mobilization of limbs cannot be evaluated. Skin is dry and warm. bilateral pedal edema +, S/P rt toe debridement and covered with dressing. Neuro: Strength at 5/5 X4 ext, Normal tone, Sensation intact, Cranial nerves 3- 12 NL, Reflexes 2+ Psych/Mental Status: Could not be assessed. laboratory and microbiology Laboratory Tests 10/28/24 05:30 Test 10/28/24 05:30 Range/Units Serum Glucose 220 H 74-106 mg/dL Microbiology Date/Time Source Procedure Growth Status 10/20/24 16:30 Blood Blood Culture - Final NO GROWTH AFTER 5 DAYS OF INCUBATION. Complete 10/16/24 17:40 Catheter Tip Aerobic Culture - Final Complete 10/16/24 09:39 Penis Aerobic Culture - Final Methicillin Resistant S.aureus Presumptive Hellen tropicalis Complete 10/14/24 22:10 Voided Urine Urine Culture - Final Presumptive Hellen tropicalis Complete 10/10/24 16:45 Sputum Expectorated Sputum Gram Stain - Final Complete 10/10/24 16:45 Sputum Expectorated Sputum Respiratory Culture - Final Complete Labs and/or images reviewed: Labs reviewed by me, Image(s) reviewed by me Problem List/Assessment/Plan Problem List/Assessment/Plan Anemia, possibly related to chronic disease with MCV 86.5 JAYLEEN likely VMN on CKD Acute hypoxic respiratory failure, on mechanical ventilation. Plans to extubate today Proctitis MRSA bacteremia Septic emboli due to above Acute left MCA stroke Infective endocarditis with mitral valve vegetations acute complicated cystitis psoas abscess? Sepsis Ruled out ileus Constipation with moderate to severe colonic volume of stool Plan: IV iron Held lactulose owing to diarrhea Continue conservative management, observation Stool occult blood negative IV Protonix b.i.d. Already on lactulose Pending MRI lower extremity Orthopedic surgeon on board Continue antibiotics Thank you so much for the opportunity to consult on your patient. GI team will follow the patient. In case of any questions or concerns please feel free to reach out. Plan discussed with Dr. Saunders Plan discussed with: Other (RN) Dietary Evaluation Review Comments: 1) Add cardiac restriction to 60g CCHO diet 2) Initiate Glucerna qd. Encourage optimal PO intake 3) Follow-up with urology and surgery 4) Follow-up with director social r/t methamphetamine abuse 5) Continue to monitor I&O, labs, and skin integrity Expected Outcomes/Goals: 1) appetite and labs to improve 2) wound to improve 3) f/u in 3-5 days NICOLETTE ROSADO RESIDENT Oct 28, 2024 10:22
--- NOTE | 2024-10-28 10:23 | DVHPN2 ---
Progress Note - Dictate Date Seen: Oct 28, 2024 Medical Necessity Reason Pt with a Central, PICC or Fol: Yes The following are medically ne: Central Line, Kan Catheter Subjective Mr. Velazquez is a 39 years old gentleman with a history of diabetes, GERD, bipolar disorder, schizophrenia, chronic diabetic ulcer, he was brought to the [facility] on 10/02/2024 with a chief company of fever, the patient is also noticed to have altered mental status, in the CT brain scan showed evidence suggestive of left MCA territory acute stroke. I have seen and examined the patient, talked to his nurse and sitter, he is awake, eyes open, he responsive to verbal stimuli, he tracks, he mumble a few words to his sitter, but will not vocalize for me. He moves the arms a little bit, but only moves legs minimally Blood culture, 10/02/2024: MRSA Blood culture, 10/03/2024: MRSA Blood culture, 10/04/2024: MRSA UDS, 10/03/2024: Amphetamine, 10/05/24: Negative Urinalysis, 10/02/2024: WBC: 30, urine leukocyte esterase: Trace WBC/HB/PLT/MCV, 10/06/2024: 5/8.7/130/82.4, 10/10/2024: 6.5/8.1/211/84.5, 10/11/2024: 6.1/7.5/176/85.9, 10/21/2024: 6/8.4/147/81.6, 10/27/2024: 9.9/7/149/84.1 PTT/INR/eight six, 10/02/2024: 12.3/1.18/34.4 Na, 10/07/2024: 144 10/10/2024: 151, 10/11/2024: 148, 10/24/2024: 146, 10/25/2024: 149 CMP, 10/05/2024: Unremarkable BUN/CR, 10/10/2024: 22/0.96, 10/11/2024: 32/1.94 GFR, 10/10/2024: 102, 10/11/2024: 44 Lactic acid, 10/24/2024: 2.1 Liver function tests, 10/11/2024: Unremarkable HGB A1c, 05/10/2023: >14 TG/HDL/LDL/HDL, 10/07/2024: 153/87/39/9 TIM, 10/14/2024: Left Ventricle: Normal LV size and function, LVEF estimated at 60% Right Ventricle: NOrmal RV size and function Left atrium: normal Right atrium: normal RA Left atrial appendage: no thrombus noted, d Aortic valve: trileaflet valve, no severe or AI Mitral Valve: structurally normal, anterior leaflet has 0. 8 cm vegetation with stalk . 0.8 x 0.4 cm, no significant MR is noted however, no abscess noted Tricuspid Valve: mild tricuspid regurgitaiton, no TS Pulmonic Valve: structurally normal, no severe PIor PS Interatrial septum: negative color flow for R to L shunt, negative bubble study Ascending aorta: no severe plaquing Echocardiogram, 10/06/2024: Technically good study. Off axis views. Limited views obtained. There appears to be biatrial enlargement and LV enlargement. Mild aortic root enlargement. Valves appear to be structurally normal. Left ventricular function is borderline at 45 to 50% anteroseptal hypokinesis.. Normal RV function. Mild TR. No pericardial effusion masses or vegetations. CT head, 10/05/2024: Acute left MCA territory infarct in left insula/temporal operculum/temporal lobe. No hemorrhage or mass effect Sedated, 10/09/2024: 1. Interval progression in evolution of left middle cerebral artery territory infarct involving the insula / temporal are operculum/ temporal lobe with associated loss of khoury-white matter differentiation and progressively diminished parenchymal attenuation. 2. No evidence of intracranial hemorrhage, mass effect, midline shift or herniation. 3. Chronic sequelae of microangiopathy and atrophic cortical volume loss. CT abdomen/pelvis, 10/06/2024: 1. Trace bilateral pleural effusions with adjacent atelectasis and patchy posterior bibasilar pulmonary infiltrate. 2. Hepatomegaly. 3. Excess retained colorectal stool and moderate proximal mechanical small-bowel obstruction. 4. Moderate gas and Kan catheter within the urinary bladder CT abdomen/pelvis, 10/16/2024: Foci of air at the left psoas muscle with erosive changes at the left anterior sacroiliac joint. Findings are concerning for acute osteomyelitis/septic arthritis with left psoas muscle abscess. Evaluated on this study is extremely limited due to lack of IV contrast and artifact. Suggest MRI with and without IV contrast for further evaluation. If MRI cannot be performed, contrast enhanced CT is suggested. Small to moderate amount of ascites. Extensive body wall edema. Small to moderate left and small right pleural effusions. Diabetes mellitus. Constipation. CTA head, neck, 10/05/2024: 1. No evidence of acute intracranial hemorrhage, mass effect or hydrocephalus. 2. No evidence of hemodynamically significant intracranial stenosis, proximal occlusion or aneurysm. 3. No evidence of hemodynamically significant cervical stenosis or dissection MRI head, 10/15/2024: 1. Large area of diffusion restriction of the left posterior temporal lobe and left parietal lobe. 2. Small areas of punctate infarction along the right posterior frontal lobe to parietal lobe. 3. Imaging pattern may be compatible with embolic phenomenon vital signs Vital Sign Date Time Temp Pulse Resp B/P (MAP) Pulse Ox O2 Delivery O2 Flow Rate FiO2 10/28/24 09:00 87 17 122/83 (96) 95 10/28/24 08:00 98.6 98.6 10/28/24 06:07 50.0 80 10/28/24 06:00 Hi-Flow Heated NC+ Total Intake and Output 10/27/24 10/27/24 10/28/24 15:00 23:00 07:00 Intake Total 350 ml 684 ml 1294 ml Output Total 1625 ml Balance 350 ml 684 ml -331 ml medications Current Medications Medications Dose Ordered Sig/Dion Route Start Time Stop Time Status Last Admin Dose Admin Acetaminophen 650 mg Q6HP PRN LA 10/10/24 10:00 10/10/24 15:18 650 MG Diagnostic Test (Pha) 1 strip Q6HR 10/11/24 00:00 10/28/24 05:50 1 STRIP Insulin Human Regular FOLLOW SLIDING SCALE Q6HR SC 10/11/24 00:00 10/28/24 05:52 8 UNITS Dextrose 50 ml UD IV 10/10/24 22:00 Amino Acids 0 ml @ 0 mls/hr PER PHARMACY IV 10/10/24 19:00 UNV Pantoprazole Sodium 40 mg DAILY IV 10/21/24 08:30 10/27/24 10:10 40 MG Ondansetron HCl 4 mg Q4HPRN PRN IV 10/24/24 02:00 10/24/24 20:08 4 MG Enoxaparin Sodium 40 mg DAILY SC 10/24/24 10:00 10/27/24 10:11 40 MG Aspirin 300 mg DAILY LA 10/25/24 10:00 Acetylcysteine 100 mg Q6HR NEB 10/25/24 18:00 10/28/24 06:06 100 MG Albuterol 2.5 mg Q6HR NEB 10/25/24 18:00 10/28/24 06:06 2.5 MG Ipratropium [place] 0.5 mg Q6HR NEB 10/25/24 18:00 10/28/24 06:06 0.5 MG Dextrose 1,000 ml @ 50 mls/hr Q20H IV 10/26/24 11:30 10/27/24 07:30 50 MLS/HR Bumetanide 2 mg BID@0800,2000 IV 10/26/24 08:00 10/27/24 21:42 2 MG Haloperidol Lactate 5 mg Q8HP PRN IV 10/27/24 11:45 Vancomycin HCl 0 ml @ 0 mls/hr UD IV 10/27/24 20:00 Piperacillin Sod/ Tazobactam Sod 100 ml @ 25 mls/hr Q8HR IV 10/27/24 22:00 10/28/24 06:10 25 MLS/HR Amino Acids 0 ml @ 0 mls/hr PER PHARMACY IV 10/27/24 22:00 Amino Acids/ Electrolytes/ Dextrose 1,000 ml @ 42 mls/hr DAILY@2200 IV 10/27/24 22:00 10/27/24 21:35 42 MLS/HR Vancomycin HCl 350 ml @ 233.333 mls/hr Q12H IV 10/28/24 09:00 objective General: the patient is well developed and nourished. No acute distress MENTAL STATUS: Subjective SPEECH, LANGUAGE, HIGHER CORTICAL FUNCTION: Subjective CRANIAL NERVES: Pupils are equal, round and reactive. Eyes are closed. No sign of facial weakness. Sensory and motor examination is unremarkable in bilateral trigeminal distribution SENSATION: Responsive to pain in the light touch MOTOR: Muscle tone feels normal, he moves the arms in the legs REFLEXES: Deep tendon reflexes feel symmetrical. No pathological reflexes. CEREBELLAR/COORDINATION: Deferred GAIT/STATION: deferred laboratory and microbiology Laboratory Tests 10/28/24 05:30 Test 10/28/24 05:30 Range/Units Serum Glucose 220 H 74-106 mg/dL Problem List Altered mental status, secondary to Acute stroke Metabolic encephalopathy Acute respiratory failure Acute stroke Sepsis with MRSA Chronic diabetic wound, status post debridement on 10/15/2024 Endocarditis Osteomyelitis Psoas abscess History of substance abuse Assessment/Plan Monitoring Supportive treatment ICU care Follow up tests MRI lumbar spine Stabilize vitals Respiratory support Aspirin 81 mg daily/300 mg LA, on hold IV antibiotics Haldol p.r.n. for agitation DVT prophylaxis/Lovenox Infectious disease on case Need to quit substance abuse Orthopedic on case More recommendation per clinical course This medical document was created using an electronic medical record system with [employer] dictation system. Although this document has been carefully reviewed, there may still be some phonetic and typographical errors. These areas are purely typographical due to imperfections of the software programs, and do not reflect any compromise in the patient's medical care. Prognosis poor Dietary Evaluation Review Comments: 1) Add cardiac restriction to 60g CCHO diet 2) Initiate Glucerna qd. Encourage optimal PO intake 3) Follow-up with urology and surgery 4) Follow-up with older adult social work specialist r/t methamphetamine abuse 5) Continue to monitor I&O, labs, and skin integrity Expected Outcomes/Goals: 1) appetite and labs to improve 2) wound to improve 3) f/u in 3-5 days Plan discussed with: Other CALEB PAYNE MD Oct 28, 2024 10:23
[2024-10-28] MEDS: VANCOMYCIN 1.75GM/350ML 350 ML IV SCH (10:26)
[2024-10-28] MEDS: PIPERACILLIN-TAZOB 3.375GM 100 ML IV SCH (12:15)
[2024-10-28] MEDS ORDERED: TPN PER PHARMACY 0 ML IV SCH (13:45)
--- NOTE | 2024-10-28 19:06 | DVHPNRES ---
Progress Note Date Seen: Oct 28, 2024 Resident Creating Document: CHRIS ASTORGA RESIDENT Medical Necessity Reason Pt with a Central, PICC or Fol: Yes The following are medically ne: Central Line, Kan Catheter Subjective Other Systems: Patient is status post extubation, on high-flow nasal cannula, is only corresponding yes and no to questions. Blood culture was negative for MRSA x2. Patient over the weekend had fevers. Repeat chest x-ray showed progressive extensive multifocal bilateral pulmonary airspace disease in all lung zones. Patient was started on TPN on 10/27/24. Patient's antibiotics switched to vancomycin, Zosyn on 10/27/24. Patient changed code status back to full code today. Objective vital signs Vital Sign Date Time Temp Pulse Resp B/P (MAP) Pulse Ox O2 Delivery O2 Flow Rate FiO2 10/28/24 18:00 17 100 Hi-Flow Heated NC+ 50 80 80 10/28/24 18:00 82 10/28/24 18:00 142/86 (104) 10/28/24 16:00 98.4 98.4 Total Intake and Output 10/27/24 10/27/24 10/28/24 15:00 23:00 07:00 Intake Total 350 ml 684 ml 1294 ml Output Total 1625 ml Balance 350 ml 684 ml -331 ml medications Current Medications Medications Dose Ordered Sig/Dion Route Start Time Stop Time Status Last Admin Dose Admin Acetaminophen 650 mg Q6HP PRN [place] 10/10/24 10:00 10/10/24 15:18 650 MG Diagnostic Test (Pha) 1 strip Q6HR 10/11/24 00:00 10/28/24 17:35 1 STRIP Insulin Human Regular FOLLOW SLIDING SCALE Q6HR SC 10/11/24 00:00 10/28/24 17:40 8 UNITS Dextrose 50 ml UD IV 10/10/24 22:00 Amino Acids 0 ml @ 0 mls/hr PER PHARMACY IV 10/10/24 19:00 UNV Pantoprazole Sodium 40 mg DAILY IV 10/21/24 08:30 10/28/24 10:28 40 MG Ondansetron HCl 4 mg Q4HPRN PRN IV 10/24/24 02:00 10/24/24 20:08 4 MG Enoxaparin Sodium 40 mg DAILY SC 10/24/24 10:00 10/28/24 10:28 40 MG Aspirin 300 mg DAILY AL 10/25/24 10:00 Acetylcysteine 100 mg Q6HR NEB 10/25/24 18:00 10/28/24 18:38 100 MG Albuterol 2.5 mg Q6HR NEB 10/25/24 18:00 10/28/24 18:37 2.5 MG Ipratropium [place] 0.5 mg Q6HR NEB 10/25/24 18:00 10/28/24 18:37 0.5 MG Dextrose 1,000 ml @ 50 mls/hr Q20H IV 10/26/24 11:30 10/28/24 16:24 50 MLS/HR Haloperidol Lactate 5 mg Q8HP PRN IV 10/27/24 11:45 Vancomycin HCl 0 ml @ 0 mls/hr UD IV 10/27/24 20:00 Amino Acids 0 ml @ 0 mls/hr PER PHARMACY IV 10/27/24 22:00 10/29/24 21:59 Amino Acids/ Electrolytes/ Dextrose 1,000 ml @ 42 mls/hr DAILY@2200 IV 10/27/24 22:00 10/29/24 21:59 10/27/24 21:35 42 MLS/HR Vancomycin HCl 350 ml @ 233.333 mls/hr DAILY@0900 IV 10/29/24 09:00 Piperacillin Sod/ Tazobactam Sod 100 ml @ 25 mls/hr Q6H IV 10/28/24 12:00 10/28/24 17:42 25 MLS/HR Amino Acids 0 ml @ 0 mls/hr PER PHARMACY IV 10/28/24 13:45 Amino Acids/ Electrolytes/ Dextrose 1,000 ml @ 41 mls/hr DAILY@2200 IV 10/28/24 22:00 Cancel Iron Sucrose 110 ml @ 110 mls/hr DAILY@1200 IV 10/29/24 12:00 11/02/24 12:59 Bumetanide 12.5 mg/Miscellaneous 50 ml @ 2 mls/hr Q24H IV 10/28/24 17:15 Examination GEN: Patent s/p extubation on 6L NC oxygen. HEENT: NC/AT; MMM. CV: RRR, regular rhythm LUNGS: CTAB, no w/r/c. ABD: Soft, NT/ND, NBS, no masses or organomegaly. EXT: skin Warm, well perfused. no rashes. No clubbing, cyanosis, or edema. Right toe wrapped in gauze, chronic ulcer, checked the wounds in the sacrum and the toe unremarkable. NEURO: Alert, Awake, Orientation limited examination. laboratory and microbiology Laboratory Tests 10/28/24 05:30 Test 10/28/24 05:30 Range/Units Serum Glucose 220 H 74-106 mg/dL Microbiology Date/Time Source Procedure Growth Status 10/27/24 19:53 Sputum Gram Stain - Final Resulted 10/27/24 19:53 Sputum Respiratory Culture Pending Resulted 10/20/24 16:30 Blood Blood Culture - Final NO GROWTH AFTER 5 DAYS OF INCUBATION. Complete 10/16/24 17:40 Catheter Tip Aerobic Culture - Final Complete 10/16/24 09:39 Penis Aerobic Culture - Final Methicillin Resistant S.aureus Presumptive Hellen tropicalis Complete 10/14/24 22:10 Voided Urine Urine Culture - Final Presumptive Hellen tropicalis Complete Labs and/or images reviewed: Labs reviewed by me, Image(s) reviewed by me Problem List/Assessment/Plan Problem List/Assessment/Plan Problem List/Assessment/Plan Mr. Velazquez is a 39-year-old male with a complex medical history including insulin-dependent diabetes mellitus, GERD, bipolar disorder, schizophrenia, chronic diabetic ulcers, dyslipidemia, MRSA urinary infection, BPH, and methamphetamine abuse presented to [facility] on 10/02/2024 with generalized weakness, fever, and abdominal discomfort. He was intubated and chemically sedated for sepsis and persistent MRSA bacteremia, requiring low-dose vasopressor support. Imaging revealed a pelvic abscess and urinalysis suggested a UTI. Despite treatment, blood cultures remained positive for MRSA through 10/09. Cardiology was consulted for possible subacute endocarditis, with plans for TIM pending improvement in mental status. ECG showed sinus tachycardia, inflammatory markers were elevated, and infectious workup for HIV, hepatitis B/C, and syphilis was negative. Recurrent MRSA bacteremia with infective endocarditis with most likely source of intrapelvic collection with foci of air at the left psoas muscle with erosive changes at the left anterior sacroiliac joint concerning for acute osteomyelitis/septic arthritis with left psoas muscle abscess. Status post ceftriaxone, linezolid, metronidazole, vancomycin, was change to daptomycin and ceftaroline on respectively 10/12/2024 and 10/13/2024. -Patient on 10/27/2024 was started on vancomycin per pharmacy, Zosyn 3.7 q.8. Daptomycin and ceftaroline were discontinued. Assessment: #Persistent bacteremia with subacute endocarditis TIM found MR with 0.8 cm vegetations, improved. #CVA, left MCA territory, possible infectious cardioembolic source: MRI reveals a large area of restricted diffusion in the left posterior temporal and parietal lobes, along with small punctate infarcts in the right posterior frontal to parietal lobes, suggesting a pattern consistent with an embolic phenomenon noted on MRI. #Erosive changes at the left anterior sacroiliac joint concerning for acute osteomyelitis/septic arthritis with #Left psoas muscle abscess. #Small to moderate amount of ascites. #Small to moderate left and small right pleural effusions. #Cephalic vein thrombus; ? infectious thromboembolism #Meningitis? Possible, HSV encephalitis possible?, unable to rule out vs thromboembolic stroke. #Abdomen-pelvic abscess: Evidence of left sacroiliitis with gas and fluid extending into left pelvic muscles likely representing abscess #UTI due to possible hematogenous seeding of bacteremia #MRSA Aspiration Pneumonia, Trace bilateral pleural effusions with adjacent atelectasis and patchy posterior bibasilar pulmonary infiltrate with MRSA #Methamphetamine abuse, unknown status of IV drug abuse #Mild aortic root enlargement. Mild TR, No pericardial effusion masses or vegetations noted on TTE #Uncontrolled DM with HbA1C 13.2 #STD panel ruled out. #Watery diarrhea, 5 times, low suspicion of d c diff. Abdominal exam unremarkable. #Mild fever 100 is lower on suspicion of infectious causes as off of sedation and agitation can be contributory. Plan: #If oxygen requirement increases, consider workup for aspiration pneumonia/pneumonitis. #Yet to rule out c diff and other stool infection. If low suspicion of c diff, likely a diarrhea attributed to antibiotics. Close follow up, adequate hydration. #Significant improvement in overall clinical picture, MRI still pending, If patient's renal function improved might consider CT with contrast with cautions and appropriate hydration. # continue vancomycin and zosyn # CT head with and without contrast, CT abdomen with contrast to be considered with improving renal function, when hypoxia improves. # repeat sputum culture to be followed up # continue daily chest x-rays. #continue monitoring respiratory status, improve hypoxia for possible head CT and abdomen/pelvis CT # repeat blood cultures ordered today #Still source control remains a pivotal factor, looking for further input from Surgical teams. #As high risk substance abuse IV antibiotic will likely need SNF placement when patient is clinically stable for discharge. #Continue ICU level care with close follow up by Primary Team. Discussed with Dr. Solano. Infectious disease team will follow up. The patient remains overall very sick with multiorgan failure, guarded prognosis. Plan discussed with: Patient Plan discussed with: Patient Dietary Evaluation Review Comments: 1) Add cardiac restriction to 60g CCHO diet 2) Initiate Glucerna qd. Encourage optimal PO intake 3) Follow-up with urology and surgery 4) Follow-up with social media coordinator r/t methamphetamine abuse 5) Continue to monitor I&O, labs, and skin integrity Expected Outcomes/Goals: 1) appetite and labs to improve 2) wound to improve 3) f/u in 3-5 days CHRIS ASTORGA RESIDENT Oct 28, 2024 19:06
--- NOTE | 2024-10-28 19:08 | DVHPNRES ---
Progress Note Date Seen: Oct 28, 2024 Resident Creating Document: ERNIE RONDON RESDIENT Medical Necessity Reason Pt with a Central, PICC or Fol: Yes The following are medically ne: Central Line, Kan Catheter Subjective Review of Systems Patient seen and examined at the bedside. Patient is on high flow nasal cannula, patient is calm in compared to yesterday. Objective vital signs Vital Sign Date Time Temp Pulse Resp B/P (MAP) Pulse Ox O2 Delivery O2 Flow Rate FiO2 10/28/24 18:38 87 14 100 40.0 70 10/28/24 18:00 Hi-Flow Heated NC+ 10/28/24 18:00 142/86 (104) 10/28/24 16:00 98.4 98.4 Total Intake and Output 10/27/24 10/27/24 10/28/24 15:00 23:00 07:00 Intake Total 350 ml 684 ml 1294 ml Output Total 1625 ml Balance 350 ml 684 ml -331 ml medications Current Medications Medications Dose Ordered Sig/Dion Route Start Time Stop Time Status Last Admin Dose Admin Acetaminophen 650 mg Q6HP PRN [place] 10/10/24 10:00 10/10/24 15:18 650 MG Diagnostic Test (Pha) 1 strip Q6HR 10/11/24 00:00 10/28/24 17:35 1 STRIP Insulin Human Regular FOLLOW SLIDING SCALE Q6HR SC 10/11/24 00:00 10/28/24 17:40 8 UNITS Dextrose 50 ml UD IV 10/10/24 22:00 Amino Acids 0 ml @ 0 mls/hr PER PHARMACY IV 10/10/24 19:00 UNV Pantoprazole Sodium 40 mg DAILY IV 10/21/24 08:30 10/28/24 10:28 40 MG Ondansetron HCl 4 mg Q4HPRN PRN IV 10/24/24 02:00 10/24/24 20:08 4 MG Enoxaparin Sodium 40 mg DAILY SC 10/24/24 10:00 10/28/24 10:28 40 MG Aspirin 300 mg DAILY [place] 10/25/24 10:00 Acetylcysteine 100 mg Q6HR NEB 10/25/24 18:00 10/28/24 18:38 100 MG Albuterol 2.5 mg Q6HR NEB 10/25/24 18:00 10/28/24 18:37 2.5 MG Ipratropium [place] 0.5 mg Q6HR NEB 10/25/24 18:00 10/28/24 18:37 0.5 MG Dextrose 1,000 ml @ 50 mls/hr Q20H IV 10/26/24 11:30 10/28/24 16:24 50 MLS/HR Haloperidol Lactate 5 mg Q8HP PRN IV 10/27/24 11:45 Vancomycin HCl 0 ml @ 0 mls/hr UD IV 10/27/24 20:00 Amino Acids 0 ml @ 0 mls/hr PER PHARMACY IV 10/27/24 22:00 10/29/24 21:59 Amino Acids/ Electrolytes/ Dextrose 1,000 ml @ 42 mls/hr DAILY@2200 IV 10/27/24 22:00 10/29/24 21:59 10/27/24 21:35 42 MLS/HR Vancomycin HCl 350 ml @ 233.333 mls/hr DAILY@0900 IV 10/29/24 09:00 Piperacillin Sod/ Tazobactam Sod 100 ml @ 25 mls/hr Q6H IV 10/28/24 12:00 10/28/24 17:42 25 MLS/HR Amino Acids 0 ml @ 0 mls/hr PER PHARMACY IV 10/28/24 13:45 Amino Acids/ Electrolytes/ Dextrose 1,000 ml @ 41 mls/hr DAILY@2200 IV 10/28/24 22:00 Cancel Iron Sucrose 110 ml @ 110 mls/hr DAILY@1200 IV 10/29/24 12:00 11/02/24 12:59 Bumetanide 12.5 mg/Miscellaneous 50 ml @ 2 mls/hr Q24H IV 10/28/24 17:15 Examination General Appearance: Alert, agitated, and in respiratory distress HEENT: Atraumatic, PERRLA, EOMI, Mucous membrane moist/pink Respiratory: Bilateral coarse breath sounds Cardiovascular: Murmur heard on mitral area Abdominal: Normal bowel sounds, Soft, No tenderness, No hepatospenomegaly, No masses Extremities: No clubbing, No cyanosis, No edema, Normal pulses, No tenderness/swelling Skin: A clean wound observed on the plantar surface of right toe, sutures intact with no sign of infection laboratory and microbiology Laboratory Tests 10/28/24 05:30 Test 10/28/24 05:30 Range/Units Serum Glucose 220 H 74-106 mg/dL Microbiology Date/Time Source Procedure Growth Status 10/27/24 19:53 Sputum Gram Stain - Final Resulted 10/27/24 19:53 Sputum Respiratory Culture Pending Resulted 10/20/24 16:30 Blood Blood Culture - Final NO GROWTH AFTER 5 DAYS OF INCUBATION. Complete 10/16/24 17:40 Catheter Tip Aerobic Culture - Final Complete 10/16/24 09:39 Penis Aerobic Culture - Final Methicillin Resistant S.aureus Presumptive Hellen tropicalis Complete 10/14/24 22:10 Voided Urine Urine Culture - Final Presumptive Hellen tropicalis Complete Labs and/or images reviewed: Labs reviewed by me, Image(s) reviewed by me Problem List/Assessment/Plan Problem List/Assessment/Plan 39-year-old male with past medical history of diabetes (uncontrolled), chronic diabetic ulcer, bipolar and methamphetamine use disorder, came to the hospital due to fever, generalized weakness, and abdominal pain admitted on 10/02/2024, with a primary diagnosis of infective endocarditis leading to septic emboli to the brain. Patient was extubated on 10/23/2024. NEURO: Acute metabolic encephalopathy secondary to ischemic stroke/sepsis Possible septic emboli due to persistent MRSA bacteremia History of Bipolar disorder Head CT on 10/05/2024 showed Acute left MCA territory infarct Head CT and neck CT angio on 10/06/2024 showed, No evidence of hemodynamically significant intracranial and cervical stenosis, occlusion, aneurysm or dissection Brain MRI on 10/15/2024 showed, Large area of diffusion restriction of the left posterior temporal lobe, left parietal lobe, small areas of punctate infarction along the right posterior frontal lobe to parietal lobe. Imaging pattern may be compatible with embolic phenomenon * Aspirin daily and Haldol p.r.n. for agitation CARDIOVASCULAR: Acute infective endocarditis of mitral valve Possible diastolic dysfunction/diastolic heart failure Possible mitral regurgitation Possible pulmonary edema due to MR * TIM 10/14/24 showed, Mitral Valve anterior leaflet has 0. 8 cm vegetation with stalk . 0.8 x 0.4 cm, no significant MR or abscess noted, LV size and function normal (EF 60%) * TTE on 10/06/2024, Left ventricular function is borderline at 45 to 50% anteroseptal hypokinesis, showed Mild aortic root enlargement. Valves appear to be structurally normal. * Multiple blood culture has been positive for MRSA, blood culture from 10/20/2024 shows no growth after 5 days * Previously given daptomycin (started on 10/14, stopped on 10/27) and ceftaroline (started on 10/19) * Continue vancomycin (started on 10/27), and Zosyn (started on 10/27), Check echocardiogram PULMONARY: Acute hypoxic respiratory failure, likely due to pneumonia Left-sided pleural effusion Possible aspiration pneumonia * Chest x-ray shows, diffuse multifocal bilateral pulmonary infiltration in all lung zones with suspected small left pleural effusion, worsening * Abdominopelvic CT on 10/16 showed small to moderate left and small right pleural effusion * Chest ultrasound on 10/21 showed small bilateral pleural effusions * Sputum culture from 10/10/2024 shows no growth * IR consulted for effusion, due to small size does not drain * On breathing treatment and acetyl cystine GASTROINTESTINAL: Possible proctitis Possible gastroenteritis Ascites * CT scan on 09/24/2024 showed, shows rectal wall thickening * CT abdominopelvic on 10/06 showed excess retained colorectal stool and moderate proximal mechanical small-bowel obstruction * CT on 10/16 showed, foci of air at the left psoas muscle with erosive changes at the left anterior sacroiliac joint. Findings are concerning for acute osteomyelitis/septic arthritis with left psoas muscle abscess. Recommend MRI with contrast or CT with contrast * CT in on 10/16 showed [id number] amount of ascites GENITOURINARY: JAYLEEN likely due to VMN/ vancomycin toxicity, resolved Complicated UTI, due to MRSA * History of possible prostatic abscess, status post surgery * Bumex drip 0.5 mg per hour ENDOCRINE: Uncontrolled diabetes type 2 with HGB A1c 13.2 Diabetic foot ulcer, status post I&D on 10/15 * Scan on 10/07 showed, erosive changes involving the proximal and distal 1st phalanx with involvement of the IP joint * Deep Wound culture from 10/15 showed MRSA and Enterococcus faecalis sensitive to daptomycin * On sliding scale of insulin METABOLIC: CVA protein malnutrition Hypophosphatemia Hyperphosphatemia Hypomagnesemia Persistent hypokalemia Hyponatremia * Nephrology recommended DW 5% 50 mL/hour HEME: Severe anemia, normocytic normochromic, status post 2 PRBC transfusion * Hb 7.2 INFECTIOUS DISEASE: Persistent MRSA bacteremia Infective endocarditis of mitral valve Infected diabetic foot ulcer Complicated UTI Possible proctitis * Infectious disease on the board, started on vancomycin and Zosyn on 10/27 * Repeat blood culture and sputum MUSCULOSKELETAL: Psoas muscle abscess Possible sacroiliitis * CT scan from 09/24/2024 showed, evidence of left sacroiliitis with gas and fluid extending into left pelvic muscles likely representing abscess. Suboptimal characterization due to lack of contrast. Bilateral inguinal adenopathy is likely reactive * Radiology on board, planned for drainage once patients get more stabilized/calm DIET: NPO, on TPN DVT prophylax: Lovenox GI prophylaxis: Protonix Code status: Full code LINES/DRAINS/ACCESS: ETT: Intubated on 10/10, extubated on 10/23 IV access: Left IJ, placed on 10/16 Drips: Off from pressor and sedated Kan catheter: Placed on 10/02 DISPOSITION: ICU status Patient's status discussed with patient's mom at the bedside. Critical care time spent more than 69 minutes, including patient care, chart review, and updating the family. Excluding any procedures. Case discussed with Dr. Galeano Plan discussed with: Patient My Orders My Orders Orders - ERNIE RONDON Procedure Category Date Status Time Tpn Per Pharmacy PHA 10/28/24 In Process 13:45 Triglycerides LAB 10/29/24 Verified 04:00 Pre Albumin LAB 10/29/24 Verified 04:00 Tpn Per Pharmacy CADE 10/28/24 In Process 14:34 Blood Culture POOJA 10/28/24 In Process 17:01 Give Un-Diluted PHA 10/28/24 In Process (Gi... W/Bumetanide 17:15 Chest Xray 1 View XY 10/29/24 Logged 04:00 Dietary Evaluation Review Comments: 1) Add cardiac restriction to 60g CCHO diet 2) Initiate Glucerna qd. Encourage optimal PO intake 3) Follow-up with urology and surgery 4) Follow-up with socially responsible investment adviser r/t methamphetamine abuse 5) Continue to monitor I&O, labs, and skin integrity Expected Outcomes/Goals: 1) appetite and labs to improve 2) wound to improve 3) f/u in 3-5 days Date of Service: Oct 28, 2024 Billing Provider: DEE DEE GALEANO MD Common Visit Codes: [id number] CARE 30-74 MIN ERNIE RONDON Oct 28, 2024 19:08 DEE DEE GALEANO MD Oct 29, 2024 15:01
--- NOTE | 2024-10-28 19:13 | DVHSR ---
APPROVED REPORT EXAM: LIMITED Two-dimensional and M-mode echocardiogram with Doppler and color Doppler. Blood Pressure: 132/88 mmHg INDICATION Infective endocarditis, MR? RISK FACTORS Height: 6'7", Weight: 238 DIMENSIONS LVDd5.2 (3.8-5.7cm)LA (2D) (1.9-4.0cm)Aortic Root (2.0-3.7cm) LVDs3.4 (2.5-4.0cm)LA (MM) (1.9-4.0cm)Aortic Cusp Exc (1.5-2.0cm) EF (%) 60.0 (55-70%)Rt. Atrium (1.9-4.0cm)Asc. Aorta cm IVSd1.0 (0.7-1.1cm)RV (D) (1.8-2.4cm) PWd1.1 (0.7-1.1cm) Mitral Valve MitralMitral Stenosis E/A ratio0.02D MVAcm2 Other Information Quality : Technically LimitedRhythm : Technically limited study due to Repeat to eval mitral valve vegetation and MR. Conclusion ECHOGENIC STRUCTURE ON ANTERIOR LEAFLET OF MITRAL VALVE SEVERE MR LV EF IS IN RANGE OF 70% GROSSLY NORMAL TV,PV AND AORTIC ELLI NO EFFUSION
[2024-10-28] MEDS: BUMETANIDE INJECTION 12.5 MG in GIVE UN-DILUTED 0 ML IV SCH (19:39)
[2024-10-28] MEDS ORDERED: AMINO ACID INFUSION IN D10W 1,000 ML IV SCH (22:00)
[2024-10-28] MEDS: InsuLIN REG 1unit/0.01ml Soln (100units/ml) ONE (23:59)
[2024-10-29] VITALS (65 sets, daily range): BP systolic 127–151; BP diastolic 83–100; PULSE 85–107; RESP 15–28; TEMP 98.1–99.1; O2SAT 91–100
[2024-10-29 03:59] LABS: Hematocrit 20.9 % (41.0-53.0); Mean Corpuscular Hemoglobin 27.5 pg (28.0-32.0); Mean Corpuscular Volume 83.8 fL (80.0-100.0); Nucleated Red Blood Cells % 0.0 %
[2024-10-29 04:05] LABS: Hemoglobin 6.9 g/dL (13.5-17.5)
[2024-10-29 04:18] LABS: Alkaline Phosphatase 69 U/L (46-116); Anion Gap 9 (5-15); BUN/Creatinine Ratio 15.0 (10.0-20.0); Blood Urea Nitrogen 18 mg/dL (9-23); Carbon Dioxide 31 mmol/L (20-31); Chloride 103 mmol/L (98-107); Magnesium 1.6 mg/dL (1.6-2.6); Sodium 143 mmol/L (136-145); Total Protein 6.2 g/dL (5.7-8.2)
[2024-10-29 04:19] LABS: Alanine Aminotransferase < 9 U/L (7-40); Albumin 2.2 g/dL (3.2-4.8); Bilirubin, Total 0.3 mg/dL (0.2-1.0); Calcium 7.7 mg/dL (8.7-10.4); Glucose 203 mg/dL (74-106); Potassium 2.9 mmol/L (3.5-5.1)
[2024-10-29 04:28] LABS: Triglycerides 138.0 mg/dL (< 150)
--- NOTE | 2024-10-29 05:15 | DVH ---
CHEST RADIOGRAPH Indication: Pneumonia Technique: Single frontal view of the chest was obtained COMPARISON: XY CHEST XRAY 1 VIEW on DOS: 10/28/24, XY CHEST XRAY 1 VIEW on DOS: 10/27/24, XY CHEST PORT ABLE on DOS: 10/26/24, XY CHEST PORTABLE on DOS: 10/25/24, XY CHEST PORTABLE on DOS: 10/24/24 FINDINGS: Lines and Tubes: Left internal jugular central venous catheter unchanged. Lungs: Stable appearing multifocal bilateral pulmonary airspace disease and all lung zones with conso lidative features. Slight Interval progression in bilateral pleural effusions. No pneumothorax. Cardiomediastinal contours: Poorly evaluated secondary to pulmonary airspace disease. Bones: Unremarkable IMPRESSION: 1. Slight interval progression in bilateral pleural effusions. 2. Stable appearing multifocal bilateral pulmonary airspace disease with consolidative features. 3. Left internal jugular central venous catheter.
[2024-10-29] MEDS: POTASSIUM CHL 20MEQ/100ML 100 ML IV SCH (05:30)
[2024-10-29] MEDS: VANCOMYCIN 1.75GM/350ML 350 ML IV SCH (08:57)
[2024-10-29] MEDS: MAGNESIUM SULFATE 1GM/100ML 100 ML IV SCH (09:00)
--- NOTE | 2024-10-29 10:33 | DVHPN2 ---
Progress Note - Dictate Date Seen: Oct 29, 2024 Medical Necessity Reason Pt with a Central, PICC or Fol: Yes The following are medically ne: Central Line, Kan Catheter Subjective Mr. Velazquez is a 39 years old gentleman with a history of diabetes, GERD, bipolar disorder, schizophrenia, chronic diabetic ulcer, he was brought to the [facility] on 10/02/2024 with a chief company of fever, the patient is also noticed to have altered mental status, in the CT brain scan showed evidence suggestive of left MCA territory acute stroke. I have seen and examined the patient, talked to his nurse, he is awake, eyes open, he responsive to verbal stimuli, he tracks, he does not talk to me, he does not not follow my verbal commands, but I saw a questionable social smile. He moves the arms and legs Blood culture, 10/02/2024: MRSA Blood culture, 10/03/2024: MRSA Blood culture, 10/04/2024: MRSA UDS, 10/03/2024: Amphetamine, 10/05/24: Negative Urinalysis, 10/02/2024: WBC: 30, urine leukocyte esterase: Trace WBC/HB/PLT/MCV, 10/06/2024: 5/8.7/130/82.4, 10/10/2024: 6.5/8.1/211/84.5, 10/11/2024: 6.1/7.5/176/85.9, 10/21/2024: 6/8.4/147/81.6, 10/27/2024: 9.9/7/149/84.1 PTT/INR/eight six, 10/02/2024: 12.3/1.18/34.4 Na, 10/07/2024: 144 10/10/2024: 151, 10/11/2024: 148, 10/24/2024: 146, 10/25/2024: 149 CMP, 10/05/2024: Unremarkable BUN/CR, 10/10/2024: 22/0.96, 10/11/2024: 32/1.94 GFR, 10/10/2024: 102, 10/11/2024: 44 Lactic acid, 10/24/2024: 2.1 Liver function tests, 10/11/2024: Unremarkable HGB A1c, 05/10/2023: >14 TG/HDL/LDL/HDL, 10/07/2024: 153/87/39/9 TIM, 10/14/2024: Left Ventricle: Normal LV size and function, LVEF estimated at 60% Right Ventricle: NOrmal RV size and function Left atrium: normal Right atrium: normal RA Left atrial appendage: no thrombus noted, d Aortic valve: trileaflet valve, no severe or AI Mitral Valve: structurally normal, anterior leaflet has 0. 8 cm vegetation with stalk . 0.8 x 0.4 cm, no significant MR is noted however, no abscess noted Tricuspid Valve: mild tricuspid regurgitaiton, no TS Pulmonic Valve: structurally normal, no severe PIor PS Interatrial septum: negative color flow for R to L shunt, negative bubble study Ascending aorta: no severe plaquing Echocardiogram, 10/06/2024: Technically good study. Off axis views. Limited views obtained. There appears to be biatrial enlargement and LV enlargement. Mild aortic root enlargement. Valves appear to be structurally normal. Left ventricular function is borderline at 45 to 50% anteroseptal hypokinesis.. Normal RV function. Mild TR. No pericardial effusion masses or vegetations. CT head, 10/05/2024: Acute left MCA territory infarct in left insula/temporal operculum/temporal lobe. No hemorrhage or mass effect Sedated, 10/09/2024: 1. Interval progression in evolution of left middle cerebral artery territory infarct involving the insula / temporal are operculum/ temporal lobe with associated loss of khoury-white matter differentiation and progressively diminished parenchymal attenuation. 2. No evidence of intracranial hemorrhage, mass effect, midline shift or herniation. 3. Chronic sequelae of microangiopathy and atrophic cortical volume loss. CT abdomen/pelvis, 10/06/2024: 1. Trace bilateral pleural effusions with adjacent atelectasis and patchy posterior bibasilar pulmonary infiltrate. 2. Hepatomegaly. 3. Excess retained colorectal stool and moderate proximal mechanical small-bowel obstruction. 4. Moderate gas and Kan catheter within the urinary bladder CT abdomen/pelvis, 10/16/2024: Foci of air at the left psoas muscle with erosive changes at the left anterior sacroiliac joint. Findings are concerning for acute osteomyelitis/septic arthritis with left psoas muscle abscess. Evaluated on this study is extremely limited due to lack of IV contrast and artifact. Suggest MRI with and without IV contrast for further evaluation. If MRI cannot be performed, contrast enhanced CT is suggested. Small to moderate amount of ascites. Extensive body wall edema. Small to moderate left and small right pleural effusions. Diabetes mellitus. Constipation. CTA head, neck, 10/05/2024: 1. No evidence of acute intracranial hemorrhage, mass effect or hydrocephalus. 2. No evidence of hemodynamically significant intracranial stenosis, proximal occlusion or aneurysm. 3. No evidence of hemodynamically significant cervical stenosis or dissection MRI head, 10/15/2024: 1. Large area of diffusion restriction of the left posterior temporal lobe and left parietal lobe. 2. Small areas of punctate infarction along the right posterior frontal lobe to parietal lobe. 3. Imaging pattern may be compatible with embolic phenomenon vital signs Vital Sign Date Time Temp Pulse Resp B/P (MAP) Pulse Ox O2 Delivery O2 Flow Rate FiO2 10/29/24 09:36 101 24 93 40.0 60 10/29/24 08:35 145/97 10/29/24 06:00 Hi-Flow Heated NC+ 10/29/24 04:00 98.9 98.9 Total Intake and Output 10/28/24 10/28/24 10/29/24 15:00 23:00 07:00 Intake Total 836 ml 750 ml 758 ml Output Total 725 ml 475 ml Balance 836 ml 25 ml 283 ml medications Current Medications Medications Dose Ordered Sig/Dion Route Start Time Stop Time Status Last Admin Dose Admin Acetaminophen 650 mg Q6HP PRN NM 10/10/24 10:00 10/10/24 15:18 650 MG Diagnostic Test (Pha) 1 strip Q6HR 10/11/24 00:00 10/29/24 05:34 1 STRIP Insulin Human Regular FOLLOW SLIDING SCALE Q6HR SC 10/11/24 00:00 10/29/24 06:04 8 UNITS Dextrose 50 ml UD IV 10/10/24 22:00 Amino Acids 0 ml @ 0 mls/hr PER PHARMACY IV 10/10/24 19:00 UNV Pantoprazole Sodium 40 mg DAILY IV 10/21/24 08:30 10/29/24 08:55 40 MG Ondansetron HCl 4 mg Q4HPRN PRN IV 10/24/24 02:00 10/24/24 20:08 4 MG Enoxaparin Sodium 40 mg DAILY SC 10/24/24 10:00 10/29/24 08:57 40 MG Aspirin 300 mg DAILY NM 10/25/24 10:00 Acetylcysteine 100 mg Q6HR NEB 10/25/24 18:00 10/29/24 05:45 100 MG Albuterol 2.5 mg Q6HR NEB 10/25/24 18:00 10/29/24 05:45 2.5 MG Ipratropium [place] 0.5 mg Q6HR NEB 10/25/24 18:00 10/29/24 05:45 0.5 MG Dextrose 1,000 ml @ 50 mls/hr Q20H IV 10/26/24 11:30 10/28/24 16:24 50 MLS/HR Haloperidol Lactate 5 mg Q8HP PRN IV 10/27/24 11:45 Vancomycin HCl 0 ml @ 0 mls/hr UD IV 10/27/24 20:00 Amino Acids/ Electrolytes/ Dextrose 1,000 ml @ 42 mls/hr DAILY@2200 IV 10/27/24 22:00 10/29/24 21:59 10/28/24 22:17 42 MLS/HR Vancomycin HCl 350 ml @ 233.333 mls/hr DAILY@0900 IV 10/29/24 09:00 10/29/24 08:57 233.333 MLS/HR Piperacillin Sod/ Tazobactam Sod 100 ml @ 25 mls/hr Q6H IV 10/28/24 12:00 10/29/24 05:34 25 MLS/HR Amino Acids 0 ml @ 0 mls/hr PER PHARMACY IV 10/28/24 13:45 Amino Acids/ Electrolytes/ Dextrose 1,000 ml @ 41 mls/hr DAILY@2200 IV 10/28/24 22:00 Cancel Iron Sucrose 110 ml @ 110 mls/hr DAILY@1200 IV 10/29/24 12:00 11/02/24 12:59 Bumetanide 12.5 mg/Miscellaneous 50 ml @ 2 mls/hr Q24H IV 10/28/24 17:15 10/29/24 08:35 2 MLS/HR Potassium Chloride 100 ml @ 100 mls/hr Q2H IV 10/29/24 04:45 10/29/24 11:44 10/29/24 08:54 100 MLS/HR Magnesium Sulfate/ Dextrose 100 ml @ 100 mls/hr Q1HR IV 10/29/24 09:00 10/29/24 10:59 objective General: the patient is well developed and nourished. No acute distress MENTAL STATUS: Subjective SPEECH, LANGUAGE, HIGHER CORTICAL FUNCTION: Subjective CRANIAL NERVES: Pupils are equal, round and reactive. Eyes are closed. No sign of facial weakness. Sensory and motor examination is unremarkable in bilateral trigeminal distribution SENSATION: Responsive to pain in the light touch MOTOR: Muscle tone feels normal, he moves the arms in the legs REFLEXES: Deep tendon reflexes feel symmetrical. No pathological reflexes. CEREBELLAR/COORDINATION: Deferred GAIT/STATION: deferred laboratory and microbiology Laboratory Tests 10/29/24 03:30 Test 10/29/24 03:30 Range/Units Serum Glucose 203 H 74-106 mg/dL Problem List Altered mental status, secondary to Acute stroke Metabolic encephalopathy Acute respiratory failure Acute stroke Sepsis with MRSA Chronic diabetic wound, status post debridement on 10/15/2024 Endocarditis Osteomyelitis Psoas abscess History of substance abuse Assessment/Plan Monitoring Supportive treatment ICU care Follow up tests Stabilize vitals Respiratory support Aspirin 81 mg daily/300 mg NM, on hold IV antibiotics Haldol p.r.n. for agitation DVT prophylaxis/Lovenox Infectious disease on case Need to quit substance abuse Orthopedic on case More recommendation per clinical course This medical document was created using an electronic medical record system with [employer] dictation system. Although this document has been carefully reviewed, there may still be some phonetic and typographical errors. These areas are purely typographical due to imperfections of the software programs, and do not reflect any compromise in the patient's medical care. Prognosis poor Dietary Evaluation Review Comments: 1) Add cardiac restriction to 60g CCHO diet 2) Initiate Glucerna qd. Encourage optimal PO intake 3) Follow-up with urology and surgery 4) Follow-up with vp digital marketing social media and crm r/t methamphetamine abuse 5) Continue to monitor I&O, labs, and skin integrity Expected Outcomes/Goals: 1) appetite and labs to improve 2) wound to improve 3) f/u in 3-5 days Plan discussed with: Other CALEB PAYNE MD Oct 29, 2024 10:33
--- NOTE | 2024-10-29 14:01 | DVHPN2 ---
Progress Note Date Seen: Oct 29, 2024 Resident Creating Document: NICOLETTE ROSADO RESIDENT Medical Necessity Reason Pt with a Central, PICC or Fol: Yes The following are medically ne: Central Line, Kan Catheter Subjective Review of Systems Patient seen and examined at bedside Last bowel movement today, brownish and soft No nausea or vomiting S/p 1 PRBC On Bumex drip No signs of active GI bleed Objective vital signs Vital Sign Date Time Temp Pulse Resp B/P (MAP) Pulse Ox O2 Delivery O2 Flow Rate FiO2 10/29/24 13:39 94 21 93 40.0 55 10/29/24 13:10 99.1 144/100 99.1 10/29/24 10:00 Hi-Flow Heated NC+ Total Intake and Output 10/28/24 10/28/24 10/29/24 15:00 23:00 07:00 Intake Total 836 ml 750 ml 758 ml Output Total 725 ml 475 ml Balance 836 ml 25 ml 283 ml medications Current Medications Medications Dose Ordered Sig/Dion Route Start Time Stop Time Status Last Admin Dose Admin Acetaminophen 650 mg Q6HP PRN [place] 10/10/24 10:00 10/10/24 15:18 650 MG Diagnostic Test (Pha) 1 strip Q6HR 10/11/24 00:00 10/29/24 12:00 1 STRIP Insulin Human Regular FOLLOW SLIDING SCALE Q6HR SC 10/11/24 00:00 10/29/24 12:00 8 UNITS Dextrose 50 ml UD IV 10/10/24 22:00 Amino Acids 0 ml @ 0 mls/hr PER PHARMACY IV 10/10/24 19:00 UNV Pantoprazole Sodium 40 mg DAILY IV 10/21/24 08:30 10/29/24 08:55 40 MG Ondansetron HCl 4 mg Q4HPRN PRN IV 10/24/24 02:00 10/24/24 20:08 4 MG Enoxaparin Sodium 40 mg DAILY SC 10/24/24 10:00 10/29/24 08:57 40 MG Aspirin 300 mg DAILY [place] 10/25/24 10:00 Acetylcysteine 100 mg Q6HR NEB 10/25/24 18:00 10/29/24 11:45 100 MG Albuterol 2.5 mg Q6HR NEB 10/25/24 18:00 10/29/24 11:45 2.5 MG Ipratropium [place] 0.5 mg Q6HR NEB 10/25/24 18:00 10/29/24 11:45 0.5 MG Dextrose 1,000 ml @ 50 mls/hr Q20H IV 10/26/24 11:30 10/28/24 16:24 50 MLS/HR Haloperidol Lactate 5 mg Q8HP PRN IV 10/27/24 11:45 Vancomycin HCl 0 ml @ 0 mls/hr UD IV 10/27/24 20:00 Amino Acids/ Electrolytes/ Dextrose 1,000 ml @ 42 mls/hr DAILY@2200 IV 10/27/24 22:00 10/29/24 21:59 10/28/24 22:17 42 MLS/HR Vancomycin HCl 350 ml @ 233.333 mls/hr DAILY@0900 IV 10/29/24 09:00 10/29/24 08:57 233.333 MLS/HR Piperacillin Sod/ Tazobactam Sod 100 ml @ 25 mls/hr Q6H IV 10/28/24 12:00 10/29/24 05:34 25 MLS/HR Amino Acids 0 ml @ 0 mls/hr PER PHARMACY IV 10/28/24 13:45 Amino Acids/ Electrolytes/ Dextrose 1,000 ml @ 41 mls/hr DAILY@2200 IV 10/28/24 22:00 Cancel Iron Sucrose 110 ml @ 110 mls/hr DAILY@1200 IV 10/29/24 12:00 11/02/24 12:59 Bumetanide 12.5 mg/Miscellaneous 50 ml @ 2 mls/hr Q24H IV 10/28/24 17:15 10/29/24 08:35 2 MLS/HR Examination General Appearance: Alert, Oriented X1, noncooperative, No acute distress HEENT: Atraumatic, PERRLA, EOMI, Mucous membrane moist/pink Respiratory: Clear to auscultation, Normal air movement Cardiovascular: Regular rate, Normal S1, Normal S2, No murmurs, no chest wall tenderness Abdominal: Normal bowel sounds, Soft, No tenderness, No hepatospenomegaly, No masses Extremities: Mobilization of limbs cannot be evaluated. Skin is dry and warm. bilateral pedal edema +, S/P rt toe debridement and covered with dressing. Neuro: Strength at 5/5 X4 ext, Normal tone, Sensation intact, Cranial nerves 3- 12 NL, Reflexes 2+ Psych/Mental Status: Could not be assessed. laboratory and microbiology Laboratory Tests 10/29/24 03:30 Test 10/29/24 03:30 Range/Units Serum Glucose 203 H 74-106 mg/dL Microbiology Date/Time Source Procedure Growth Status 10/27/24 19:53 Sputum Gram Stain - Final Resulted 10/27/24 19:53 Sputum Respiratory Culture - Preliminary Resulted 10/20/24 16:30 Blood Blood Culture - Final NO GROWTH AFTER 5 DAYS OF INCUBATION. Complete 10/16/24 17:40 Catheter Tip Aerobic Culture - Final Complete 10/16/24 09:39 Penis Aerobic Culture - Final Methicillin Resistant S.aureus Presumptive Hellen tropicalis Complete 10/14/24 22:10 Voided Urine Urine Culture - Final Presumptive Hellen tropicalis Complete Labs and/or images reviewed: Labs reviewed by me, Image(s) reviewed by me Problem List/Assessment/Plan Problem List/Assessment/Plan Anemia, possibly related to chronic disease with MCV 86.5 JAYLEEN likely VMN on CKD Acute hypoxic respiratory failure, on mechanical ventilation. Plans to extubate today Proctitis MRSA bacteremia Septic emboli due to above Acute left MCA stroke Infective endocarditis with mitral valve vegetations acute complicated cystitis psoas abscess? Sepsis Ruled out ileus Constipation with moderate to severe colonic volume of stool Plan: Consider limiting blood draws IV iron Held lactulose owing to diarrhea Continue conservative management, observation Stool occult blood negative IV Protonix b.i.d. Already on lactulose Continue antibiotics Thank you so much for the opportunity to consult on your patient. GI team will follow the patient. In case of any questions or concerns please feel free to reach out. Plan discussed with Dr. Saunders Plan discussed with: Other (RN) My Orders My Orders Orders - NICOLETTE ROSADO RESIDENT Procedure Category Date Status Time Iron Sucrose Complex PHA 10/29/24 In Process (Venofer) 12:00 Dietary Evaluation Review Comments: 1) Add cardiac restriction to 60g CCHO diet 2) Initiate Glucerna qd. Encourage optimal PO intake 3) Follow-up with urology and surgery 4) Follow-up with medical social worker r/t methamphetamine abuse 5) Continue to monitor I&O, labs, and skin integrity Expected Outcomes/Goals: 1) appetite and labs to improve 2) wound to improve 3) f/u in 3-5 days NICOLETTE ROSADO RESIDENT Oct 29, 2024 14:01
--- NOTE | 2024-10-29 14:44 | DVHPN2 ---
Progress Note Date Seen: Oct 29, 2024 Medical Necessity Reason Pt with a Central, PICC or Fol: Yes The following are medically ne: Central Line, Kan Catheter Subjective Patient reports: Feels worse Objective vital signs Vital Sign Date Time Temp Pulse Resp B/P (MAP) Pulse Ox O2 Delivery O2 Flow Rate FiO2 10/29/24 14:30 90 19 134/83 (100) 92 10/29/24 13:39 40.0 55 10/29/24 13:10 99.1 99.1 10/29/24 10:00 Hi-Flow Heated NC+ Total Intake and Output 10/28/24 10/28/24 10/29/24 15:00 23:00 07:00 Intake Total 836 ml 750 ml 758 ml Output Total 725 ml 475 ml Balance 836 ml 25 ml 283 ml medications Current Medications Medications Dose Ordered Sig/Dion Route Start Time Stop Time Status Last Admin Dose Admin Acetaminophen 650 mg Q6HP PRN [place] 10/10/24 10:00 10/10/24 15:18 650 MG Diagnostic Test (Pha) 1 strip Q6HR 10/11/24 00:00 10/29/24 12:00 1 STRIP Insulin Human Regular FOLLOW SLIDING SCALE Q6HR SC 10/11/24 00:00 10/29/24 12:00 8 UNITS Dextrose 50 ml UD IV 10/10/24 22:00 Amino Acids 0 ml @ 0 mls/hr PER PHARMACY IV 10/10/24 19:00 UNV Pantoprazole Sodium 40 mg DAILY IV 10/21/24 08:30 10/29/24 08:55 40 MG Ondansetron HCl 4 mg Q4HPRN PRN IV 10/24/24 02:00 10/24/24 20:08 4 MG Enoxaparin Sodium 40 mg DAILY SC 10/24/24 10:00 10/29/24 08:57 40 MG Aspirin 300 mg DAILY [place] 10/25/24 10:00 Acetylcysteine 100 mg Q6HR NEB 10/25/24 18:00 10/29/24 11:45 100 MG Albuterol 2.5 mg Q6HR NEB 10/25/24 18:00 10/29/24 11:45 2.5 MG Ipratropium [place] 0.5 mg Q6HR NEB 10/25/24 18:00 10/29/24 11:45 0.5 MG Dextrose 1,000 ml @ 50 mls/hr Q20H IV 10/26/24 11:30 10/28/24 16:24 50 MLS/HR Haloperidol Lactate 5 mg Q8HP PRN IV 10/27/24 11:45 Vancomycin HCl 0 ml @ 0 mls/hr UD IV 10/27/24 20:00 Amino Acids/ Electrolytes/ Dextrose 1,000 ml @ 42 mls/hr DAILY@2200 IV 10/27/24 22:00 10/29/24 21:59 10/28/24 22:17 42 MLS/HR Vancomycin HCl 350 ml @ 233.333 mls/hr DAILY@0900 IV 10/29/24 09:00 10/29/24 08:57 233.333 MLS/HR Piperacillin Sod/ Tazobactam Sod 100 ml @ 25 mls/hr Q6H IV 10/28/24 12:00 10/29/24 05:34 25 MLS/HR Amino Acids 0 ml @ 0 mls/hr PER PHARMACY IV 10/28/24 13:45 Amino Acids/ Electrolytes/ Dextrose 1,000 ml @ 41 mls/hr DAILY@2200 IV 10/28/24 22:00 Cancel Iron Sucrose 110 ml @ 110 mls/hr DAILY@1200 IV 10/29/24 12:00 11/02/24 12:59 Bumetanide 12.5 mg/Miscellaneous 50 ml @ 2 mls/hr Q24H IV 10/28/24 17:15 10/29/24 08:35 2 MLS/HR Examination: GENERAL:Abnormal, LUNGS:Abnormal, CVS:Abnormal laboratory and microbiology Laboratory Tests 10/29/24 03:30 Test 10/29/24 03:30 Range/Units Serum Glucose 203 H 74-106 mg/dL Microbiology Date/Time Source Procedure Growth Status 10/27/24 19:53 Sputum Gram Stain - Final Resulted 10/27/24 19:53 Sputum Respiratory Culture - Preliminary Resulted 10/20/24 16:30 Blood Blood Culture - Final NO GROWTH AFTER 5 DAYS OF INCUBATION. Complete 10/16/24 17:40 Catheter Tip Aerobic Culture - Final Complete 10/16/24 09:39 Penis Aerobic Culture - Final Methicillin Resistant S.aureus Presumptive Hellen tropicalis Complete 10/14/24 22:10 Voided Urine Urine Culture - Final Presumptive Hellen tropicalis Complete Problem List/Assessment/Plan Problem List/Assessment/Plan Acute kidney injury multifactorial hemodynamically mediated, FeNa < 1% Acute respiratory failure, patient intubated on ventilator/extubated Vancomycin nephrotoxicity Septic shock Acute CVA MRSA bacteremia Bacterial endocarditis, severe MR Lower extremity MRSA wound infection BPH status post TURP with indwelling Kan catheter d History of methamphetamine abuse Hypoalbuminemia multiple electrolyte abnormalities- hypokalemia, hypophosphatemia, hypoMg, hypernatremia improved extubated,, on high-flow nasal cannula D5W IV /free water potassium replacement, Mg, Phos replacement now on IV bumex drip , trial dual diuretics if able to obtain thiazide IV. If fails will discuss ultrafiltration on iv abx Plan discussed with: Other Dietary Evaluation Review Comments: 1) Add cardiac restriction to 60g CCHO diet 2) Initiate Glucerna qd. Encourage optimal PO intake 3) Follow-up with urology and surgery 4) Follow-up with social media executive r/t methamphetamine abuse 5) Continue to monitor I&O, labs, and skin integrity Expected Outcomes/Goals: 1) appetite and labs to improve 2) wound to improve 3) f/u in 3-5 days Critical Care Time (mins): 33 MEEK DEL CID MD Oct 29, 2024 14:43
[2024-10-29] MEDS: IRON SUCROSE COMPLEX 110 ML IV SCH (15:37)
--- NOTE | 2024-10-29 16:18 | DVHPN2 ---
Progress Note - Dictate Date Seen: Oct 29, 2024 Medical Necessity Reason Pt with a Central, PICC or Fol: Yes The following are medically ne: Central Line, Kan Catheter Medical Necessity Reason A stat consult was requested for catheter placement. Subjective Patient is intubated He has history of urethral fistula and prostatic abscess status post ultrasound- guided drainage. Kan catheter was removed the proximal me 1-2 hours ago and the nursing staff could not replace it. Bladder scan shows over 1000 cc of urine returned, which is probably inaccurate. Patient is voiding spontaneously. Kan catheter was placed for accurate I's and O's and the management of urethral fistula which has likely resolved. vital signs Vital Sign Date Time Temp Pulse Resp B/P (MAP) Pulse Ox O2 Delivery O2 Flow Rate FiO2 10/29/24 16:00 99.1 92 20 134/90 (105) 99.1 10/29/24 14:30 92 10/29/24 14:00 Hi-Flow Heated NC+ 40 70 70 Total Intake and Output 10/28/24 10/28/24 10/29/24 15:00 23:00 07:00 Intake Total 836 ml 750 ml 758 ml Output Total 725 ml 475 ml Balance 836 ml 25 ml 283 ml medications Current Medications Medications Dose Ordered Sig/Dion Route Start Time Stop Time Status Last Admin Dose Admin Acetaminophen 650 mg Q6HP PRN [place] 10/10/24 10:00 10/10/24 15:18 650 MG Diagnostic Test (Pha) 1 strip Q6HR 10/11/24 00:00 10/29/24 12:00 1 STRIP Insulin Human Regular FOLLOW SLIDING SCALE Q6HR SC 10/11/24 00:00 10/29/24 12:00 8 UNITS Dextrose 50 ml UD IV 10/10/24 22:00 Amino Acids 0 ml @ 0 mls/hr PER PHARMACY IV 10/10/24 19:00 UNV Pantoprazole Sodium 40 mg DAILY IV 10/21/24 08:30 10/29/24 08:55 40 MG Ondansetron HCl 4 mg Q4HPRN PRN IV 10/24/24 02:00 10/24/24 20:08 4 MG Enoxaparin Sodium 40 mg DAILY SC 10/24/24 10:00 10/29/24 08:57 40 MG Aspirin 300 mg DAILY [place] 10/25/24 10:00 Acetylcysteine 100 mg Q6HR NEB 10/25/24 18:00 10/29/24 11:45 100 MG Albuterol 2.5 mg Q6HR NEB 10/25/24 18:00 10/29/24 11:45 2.5 MG Ipratropium [place] 0.5 mg Q6HR NEB 10/25/24 18:00 10/29/24 11:45 0.5 MG Haloperidol Lactate 5 mg Q8HP PRN IV 10/27/24 11:45 Vancomycin HCl 0 ml @ 0 mls/hr UD IV 10/27/24 20:00 Amino Acids/ Electrolytes/ Dextrose 1,000 ml @ 42 mls/hr DAILY@2200 IV 10/27/24 22:00 10/29/24 21:59 10/28/24 22:17 42 MLS/HR Vancomycin HCl 350 ml @ 233.333 mls/hr DAILY@0900 IV 10/29/24 09:00 10/29/24 08:57 233.333 MLS/HR Piperacillin Sod/ Tazobactam Sod 100 ml @ 25 mls/hr Q6H IV 10/28/24 12:00 10/29/24 05:34 25 MLS/HR Amino Acids 0 ml @ 0 mls/hr PER PHARMACY IV 10/28/24 13:45 Amino Acids/ Electrolytes/ Dextrose 1,000 ml @ 41 mls/hr DAILY@2200 IV 10/28/24 22:00 Cancel Iron Sucrose 110 ml @ 110 mls/hr DAILY@1200 IV 10/29/24 12:00 11/02/24 12:59 10/29/24 15:37 110 MLS/HR Bumetanide 12.5 mg/Miscellaneous 50 ml @ 2 mls/hr Q24H IV 10/28/24 17:15 10/29/24 08:35 2 MLS/HR objective Genitalia was prepped with Betadine. Lidocaine gel was used and a 18 [place] coude tip Kan catheter was inserted without any difficulty. laboratory and microbiology Laboratory Tests 10/29/24 03:30 Test 10/29/24 03:30 Range/Units Serum Glucose 203 H 74-106 mg/dL Problem List History of prostatic abscess Urethral fistula/diverticulum Assessment/Plan When patient is ready for discharge, Kan catheter may be removed Follow up cystoscopy/TRUS to be arranged Dietary Evaluation Review Comments: 1) Add cardiac restriction to 60g CCHO diet 2) Initiate Glucerna qd. Encourage optimal PO intake 3) Follow-up with urology and surgery 4) Follow-up with social worker clinical r/t methamphetamine abuse 5) Continue to monitor I&O, labs, and skin integrity Expected Outcomes/Goals: 1) appetite and labs to improve 2) wound to improve 3) f/u in 3-5 days Plan discussed with: Patient, Other AHMET KATZ MD Oct 29, 2024 16:18
[2024-10-29] MEDS ORDERED: Jevity 1.2 Cal/Fiber 1 Liter GT SCH (18:15)
--- NOTE | 2024-10-29 18:36 | DVHPNRES ---
Progress Note Date Seen: Oct 29, 2024 Resident Creating Document: ERNIE RONDON RESDIENT Medical Necessity Reason Pt with a Central, PICC or Fol: Yes The following are medically ne: Central Line, Kan Catheter Subjective Review of Systems Seen and examined at the bedside. Patient is feeling better since yesterday. Objective vital signs Vital Sign Date Time Temp Pulse Resp B/P (MAP) Pulse Ox O2 Delivery O2 Flow Rate FiO2 10/29/24 18:00 16 100 Hi-Flow Heated NC+ 40 70 70 10/29/24 18:00 90 10/29/24 18:00 138/87 (104) 10/29/24 16:00 99.1 99.1 Total Intake and Output 10/28/24 10/28/24 10/29/24 15:00 23:00 07:00 Intake Total 836 ml 750 ml 802 ml Output Total 725 ml 475 ml Balance 836 ml 25 ml 327 ml medications Current Medications Medications Dose Ordered Sig/Dion Route Start Time Stop Time Status Last Admin Dose Admin Acetaminophen 650 mg Q6HP PRN [place] 10/10/24 10:00 10/10/24 15:18 650 MG Diagnostic Test (Pha) 1 strip Q6HR 10/11/24 00:00 10/29/24 18:22 1 STRIP Insulin Human Regular FOLLOW SLIDING SCALE Q6HR SC 10/11/24 00:00 10/29/24 18:24 2 UNITS Dextrose 50 ml UD IV 10/10/24 22:00 Amino Acids 0 ml @ 0 mls/hr PER PHARMACY IV 10/10/24 19:00 UNV Pantoprazole Sodium 40 mg DAILY IV 10/21/24 08:30 10/29/24 08:55 40 MG Ondansetron HCl 4 mg Q4HPRN PRN IV 10/24/24 02:00 10/24/24 20:08 4 MG Enoxaparin Sodium 40 mg DAILY SC 10/24/24 10:00 10/29/24 08:57 40 MG Aspirin 300 mg DAILY [place] 10/25/24 10:00 Acetylcysteine 100 mg Q6HR NEB 10/25/24 18:00 10/29/24 11:45 100 MG Albuterol 2.5 mg Q6HR NEB 10/25/24 18:00 10/29/24 11:45 2.5 MG Ipratropium [place] 0.5 mg Q6HR NEB 10/25/24 18:00 10/29/24 11:45 0.5 MG Haloperidol Lactate 5 mg Q8HP PRN IV 10/27/24 11:45 Vancomycin HCl 0 ml @ 0 mls/hr UD IV 10/27/24 20:00 Amino Acids/ Electrolytes/ Dextrose 1,000 ml @ 42 mls/hr DAILY@2200 IV 10/27/24 22:00 10/29/24 21:59 10/28/24 22:17 42 MLS/HR Vancomycin HCl 350 ml @ 233.333 mls/hr DAILY@0900 IV 10/29/24 09:00 10/29/24 08:57 233.333 MLS/HR Piperacillin Sod/ Tazobactam Sod 100 ml @ 25 mls/hr Q6H IV 10/28/24 12:00 10/29/24 17:50 25 MLS/HR Amino Acids 0 ml @ 0 mls/hr PER PHARMACY IV 10/28/24 13:45 Amino Acids/ Electrolytes/ Dextrose 1,000 ml @ 41 mls/hr DAILY@2200 IV 10/28/24 22:00 Cancel Iron Sucrose 110 ml @ 110 mls/hr DAILY@1200 IV 10/29/24 12:00 11/02/24 12:59 10/29/24 15:37 110 MLS/HR Bumetanide 12.5 mg/Miscellaneous 50 ml @ 2 mls/hr Q24H IV 10/28/24 17:15 10/29/24 08:35 2 MLS/HR Enteral Nutritional Formula 1,000 ml 30ML/HR GT 10/29/24 18:15 Examination General Appearance: Alert, calm, in mild respiratory distress HEENT: Atraumatic, PERRLA, EOMI, Mucous membrane moist/pink Respiratory: Bilateral crackles Cardiovascular: Pansystolic murmur at mitral area Abdominal: Normal bowel sounds, Soft, No tenderness, No hepatospenomegaly, No masses Extremities: No clubbing, No cyanosis, No edema, Normal pulses, No tenderness/swelling Skin: A clean wound observed on the plantar surface of right toe, sutures intact with no sign of infection laboratory and microbiology Laboratory Tests 10/29/24 03:30 Test 10/29/24 03:30 Range/Units Serum Glucose 203 H 74-106 mg/dL Microbiology Date/Time Source Procedure Growth Status 10/27/24 19:53 Sputum Gram Stain - Final Resulted 10/27/24 19:53 Sputum Respiratory Culture - Preliminary Resulted 10/20/24 16:30 Blood Blood Culture - Final NO GROWTH AFTER 5 DAYS OF INCUBATION. Complete 10/16/24 17:40 Catheter Tip Aerobic Culture - Final Complete 10/16/24 09:39 Penis Aerobic Culture - Final Methicillin Resistant S.aureus Presumptive Hellen tropicalis Complete 10/14/24 22:10 Voided Urine Urine Culture - Final Presumptive Hellen tropicalis Complete Labs and/or images reviewed: Labs reviewed by tn Problem List/Assessment/Plan Problem List/Assessment/Plan 39-year-old male with past medical history of diabetes (uncontrolled), chronic diabetic ulcer, bipolar and methamphetamine use disorder, came to the hospital due to fever, generalized weakness, and abdominal pain admitted on 10/02/2024, with a primary diagnosis of infective endocarditis leading to septic emboli to the brain. Patient was extubated on 10/23/2024. NEURO: Acute metabolic encephalopathy secondary to ischemic stroke/sepsis Possible septic emboli due to persistent MRSA bacteremia History of Bipolar disorder Head CT on 10/05/2024 showed Acute left MCA territory infarct Head CT and neck CT angio on 10/06/2024 showed, No evidence of hemodynamically significant intracranial and cervical stenosis, occlusion, aneurysm or dissection Brain MRI on 10/15/2024 showed, Large area of diffusion restriction of the left posterior temporal lobe, left parietal lobe, small areas of punctate infarction along the right posterior frontal lobe to parietal lobe. Imaging pattern may be compatible with embolic phenomenon * Plan: Aspirin daily and Haldol p.r.n. for agitation CARDIOVASCULAR: Acute infective endocarditis of mitral valve Possible diastolic dysfunction/diastolic heart failure Severe mitral regurgitation, likely due to infective endocarditis Possible pulmonary edema due to MR * TIM 10/14/24 showed, Mitral Valve anterior leaflet has 0. 8 cm vegetation with stalk . 0.8 x 0.4 cm, no significant MR or abscess noted, LV size and function normal (EF 60%) * TTE on 10/06/2024, Left ventricular function is borderline at 45 to 50% anteroseptal hypokinesis, showed Mild aortic root enlargement. Valves appear to be structurally normal. * Multiple blood culture has been positive for MRSA, blood culture from 10/20/2024 shows no growth after 5 days * Previously given daptomycin (started on 10/14, stopped on 10/27) and ceftaroline (started on 10/19) * Echo 10/29, shows severe mitral regurgitation with a EF 60% * Plan: Bumex drip 0.5 mg/hour PULMONARY: Acute hypoxic respiratory failure, likely due to pneumonia Left-sided pleural effusion Possible aspiration pneumonia * Chest x-ray shows, diffuse multifocal bilateral pulmonary infiltration in all lung zones with suspected small left pleural effusion, worsening * Abdominopelvic CT on 10/16 showed small to moderate left and small right pleural effusion * Chest ultrasound on 10/21 showed small bilateral pleural effusions * Sputum culture from 10/10/2024 shows no growth * IR consulted for effusion, due to small size does not drain * Plan: On breathing treatment and acetyl cystine GASTROINTESTINAL: Possible proctitis Possible gastroenteritis Ascites * CT scan on 09/24/2024 showed, shows rectal wall thickening * CT abdominopelvic on 10/06 showed excess retained colorectal stool and moderate proximal mechanical small-bowel obstruction * CT on 10/16 showed, foci of air at the left psoas muscle with erosive changes at the left anterior sacroiliac joint. Findings are concerning for acute osteomyelitis/septic arthritis with left psoas muscle abscess. Recommend MRI with contrast or CT with contrast * CT in on 10/16 showed [id number] amount of ascites GENITOURINARY: JAYLEEN likely due to VMN/ vancomycin toxicity, resolved Complicated UTI, due to MRSA Urinary retention * History of possible prostatic abscess, status post surgery ENDOCRINE: Uncontrolled diabetes type 2 with HGB A1c 13.2 Diabetic foot ulcer, status post I&D on 10/15 * Scan on 10/07 showed, erosive changes involving the proximal and distal 1st phalanx with involvement of the IP joint * Deep Wound culture from 10/15 showed MRSA and Enterococcus faecalis sensitive to daptomycin * Plan: On sliding scale of insulin METABOLIC: Severe protein malnutrition Hypophosphatemia Hyperphosphatemia Hypomagnesemia Persistent hypokalemia Hypernatremia, resolved HEME: Severe anemia, normocytic normochromic, status post 2 PRBC transfusion * Transfused 1 pt of blood yesterday * Plan: IV iron INFECTIOUS DISEASE: Persistent MRSA bacteremia Infective endocarditis of mitral valve Infected diabetic foot ulcer Complicated UTI Possible proctitis * Plan: Continue vancomycin (10/27) and Zosyn (10/27), repeat blood culture and sputum MUSCULOSKELETAL: Psoas muscle abscess Possible sacroiliitis * CT scan from 09/24/2024 showed, evidence of left sacroiliitis with gas and fluid extending into left pelvic muscles likely representing abscess. Suboptimal characterization due to lack of contrast. Bilateral inguinal adenopathy is likely reactive * Plan: Radiology planning for drainage once patients get more stabilized/calm DIET: Feeding tube, JVD 30 mL/hour (OG-tube) DVT prophylax: Lovenox GI prophylaxis: Protonix Code status: Full code LINES/DRAINS/ACCESS: ETT: Intubated on 10/10, extubated on 10/23 IV access: Left IJ, placed on 10/16 Drips: Off from pressor and sedated Kan catheter: Placed on 10/02, replaced on 10/29 DISPOSITION: ICU status Patient's status discussed with patient's mom through the phone, planned for goal of care discussion for tomorrow morning. Critical care time spent more than 81 minutes, including patient care, chart review, and updating the family. Excluding any procedures. Case discussed with Dr. Galeano Plan discussed with: Patient My Orders My Orders Orders - ERNIE RONDON RESDIMARY Procedure Category Date Status Time Place Og Tube ORDERS 10/29/24 Transmitted 17:24 Complete Blood Count LAB 10/30/24 Verified 04:00 Comprehensive LAB 10/30/24 Verified Metabolic Panel 04:00 Chest Xray 1 View XY 10/30/24 Logged 04:00 Abg W/ Co-Ox RT 10/30/24 Logged 04:00 * Picc Line Consult CONS 10/29/24 Transmitted 17:31 Nutritional PHA 10/29/24 In Process Supplements (Jevity 18:15 Tube Feeding DIET 10/29/24 Transmitted Dinner Dietary Evaluation Review Comments: 1) Add cardiac restriction to 60g CCHO diet 2) Initiate Glucerna qd. Encourage optimal PO intake 3) Follow-up with urology and surgery 4) Follow-up with social media marketing manager r/t methamphetamine abuse 5) Continue to monitor I&O, labs, and skin integrity Expected Outcomes/Goals: 1) appetite and labs to improve 2) wound to improve 3) f/u in 3-5 days Date of Service: Oct 29, 2024 Billing Provider: DEE DEE GALEANO MD Common Visit Codes: 53275-[id number] CARE 30-74 MIN, [id number] CARE-EACH +30MIN ERNIE RONDON Oct 29, 2024 18:36 DEE DEE GALEANO MD Oct 30, 2024 11:16
--- NOTE | 2024-10-29 21:16 | DVHPN2 ---
Consult Progress Note Objective vital signs Vital Sign Date Time Temp Pulse Resp B/P (MAP) Pulse Ox O2 Delivery O2 Flow Rate FiO2 10/29/24 20:30 87 20 139/90 (106) 100 10/29/24 20:00 98.1 98.1 10/29/24 20:00 Hi-Flow Heated NC+ 40 55 55 Total Intake and Output 10/28/24 10/28/24 10/29/24 15:00 23:00 07:00 Intake Total 836 ml 750 ml 802 ml Output Total 725 ml 475 ml Balance 836 ml 25 ml 327 ml medications Current Medications Medications Dose Ordered Sig/Dion Route Start Time Stop Time Status Last Admin Dose Admin Acetaminophen 650 mg Q6HP PRN [place] 10/10/24 10:00 10/10/24 15:18 650 MG Diagnostic Test (Pha) 1 strip Q6HR 10/11/24 00:00 10/29/24 18:22 1 STRIP Insulin Human Regular FOLLOW SLIDING SCALE Q6HR SC 10/11/24 00:00 10/29/24 18:24 2 UNITS Dextrose 50 ml UD IV 10/10/24 22:00 Amino Acids 0 ml @ 0 mls/hr PER PHARMACY IV 10/10/24 19:00 UNV Pantoprazole Sodium 40 mg DAILY IV 10/21/24 08:30 10/29/24 08:55 40 MG Ondansetron HCl 4 mg Q4HPRN PRN IV 10/24/24 02:00 10/24/24 20:08 4 MG Enoxaparin Sodium 40 mg DAILY SC 10/24/24 10:00 10/29/24 08:57 40 MG Aspirin 300 mg DAILY [place] 10/25/24 10:00 Acetylcysteine 100 mg Q6HR NEB 10/25/24 18:00 10/29/24 19:16 100 MG Albuterol 2.5 mg Q6HR NEB 10/25/24 18:00 10/29/24 19:16 2.5 MG Ipratropium [place] 0.5 mg Q6HR NEB 10/25/24 18:00 10/29/24 19:16 0.5 MG Haloperidol Lactate 5 mg Q8HP PRN IV 10/27/24 11:45 Vancomycin HCl 0 ml @ 0 mls/hr UD IV 10/27/24 20:00 Vancomycin HCl 350 ml @ 233.333 mls/hr DAILY@0900 IV 10/29/24 09:00 10/29/24 08:57 233.333 MLS/HR Piperacillin Sod/ Tazobactam Sod 100 ml @ 25 mls/hr Q6H IV 10/28/24 12:00 10/29/24 17:50 25 MLS/HR Amino Acids/ Electrolytes/ Dextrose 1,000 ml @ 41 mls/hr DAILY@2200 IV 10/28/24 22:00 Cancel Iron Sucrose 110 ml @ 110 mls/hr DAILY@1200 IV 10/29/24 12:00 11/02/24 12:59 10/29/24 15:37 110 MLS/HR Bumetanide 12.5 mg/Miscellaneous 50 ml @ 2 mls/hr Q24H IV 10/28/24 17:15 10/29/24 08:35 2 MLS/HR Enteral Nutritional Formula 1,000 ml 30ML/HR GT 10/29/24 18:15 laboratory and microbiology Laboratory Tests 10/29/24 03:30 Test 10/29/24 03:30 Range/Units Serum Glucose 203 H 74-106 mg/dL Dietary Evaluation Review Comments: 1) Add cardiac restriction to 60g CCHO diet 2) Initiate Glucerna qd. Encourage optimal PO intake 3) Follow-up with urology and surgery 4) Follow-up with manager social services r/t methamphetamine abuse 5) Continue to monitor I&O, labs, and skin integrity Expected Outcomes/Goals: 1) appetite and labs to improve 2) wound to improve 3) f/u in 3-5 days ERIN BERRY MD Oct 29, 2024 21:16
--- NOTE | 2024-10-29 21:16 | DVHPN2 ---
Consult Progress Note Objective vital signs Vital Sign Date Time Temp Pulse Resp B/P (MAP) Pulse Ox O2 Delivery O2 Flow Rate FiO2 10/29/24 20:30 87 20 139/90 (106) 100 10/29/24 20:00 98.1 98.1 10/29/24 20:00 Hi-Flow Heated NC+ 40 55 55 Total Intake and Output 10/28/24 10/28/24 10/29/24 15:00 23:00 07:00 Intake Total 836 ml 750 ml 802 ml Output Total 725 ml 475 ml Balance 836 ml 25 ml 327 ml medications Current Medications Medications Dose Ordered Sig/Dion Route Start Time Stop Time Status Last Admin Dose Admin Acetaminophen 650 mg Q6HP PRN [place] 10/10/24 10:00 10/10/24 15:18 650 MG Diagnostic Test (Pha) 1 strip Q6HR 10/11/24 00:00 10/29/24 18:22 1 STRIP Insulin Human Regular FOLLOW SLIDING SCALE Q6HR SC 10/11/24 00:00 10/29/24 18:24 2 UNITS Dextrose 50 ml UD IV 10/10/24 22:00 Amino Acids 0 ml @ 0 mls/hr PER PHARMACY IV 10/10/24 19:00 UNV Pantoprazole Sodium 40 mg DAILY IV 10/21/24 08:30 10/29/24 08:55 40 MG Ondansetron HCl 4 mg Q4HPRN PRN IV 10/24/24 02:00 10/24/24 20:08 4 MG Enoxaparin Sodium 40 mg DAILY SC 10/24/24 10:00 10/29/24 08:57 40 MG Aspirin 300 mg DAILY AL 10/25/24 10:00 Acetylcysteine 100 mg Q6HR NEB 10/25/24 18:00 10/29/24 19:16 100 MG Albuterol 2.5 mg Q6HR NEB 10/25/24 18:00 10/29/24 19:16 2.5 MG Ipratropium [place] 0.5 mg Q6HR NEB 10/25/24 18:00 10/29/24 19:16 0.5 MG Haloperidol Lactate 5 mg Q8HP PRN IV 10/27/24 11:45 Vancomycin HCl 0 ml @ 0 mls/hr UD IV 10/27/24 20:00 Vancomycin HCl 350 ml @ 233.333 mls/hr DAILY@0900 IV 10/29/24 09:00 10/29/24 08:57 233.333 MLS/HR Piperacillin Sod/ Tazobactam Sod 100 ml @ 25 mls/hr Q6H IV 10/28/24 12:00 10/29/24 17:50 25 MLS/HR Amino Acids/ Electrolytes/ Dextrose 1,000 ml @ 41 mls/hr DAILY@2200 IV 10/28/24 22:00 Cancel Iron Sucrose 110 ml @ 110 mls/hr DAILY@1200 IV 10/29/24 12:00 11/02/24 12:59 10/29/24 15:37 110 MLS/HR Bumetanide 12.5 mg/Miscellaneous 50 ml @ 2 mls/hr Q24H IV 10/28/24 17:15 10/29/24 08:35 2 MLS/HR Enteral Nutritional Formula 1,000 ml 30ML/HR GT 10/29/24 18:15 laboratory and microbiology Laboratory Tests 10/29/24 03:30 Test 10/29/24 03:30 Range/Units Serum Glucose 203 H 74-106 mg/dL Dietary Evaluation Review Comments: 1) Add cardiac restriction to 60g CCHO diet 2) Initiate Glucerna qd. Encourage optimal PO intake 3) Follow-up with urology and surgery 4) Follow-up with long term care social worker r/t methamphetamine abuse 5) Continue to monitor I&O, labs, and skin integrity Expected Outcomes/Goals: 1) appetite and labs to improve 2) wound to improve 3) f/u in 3-5 days ERIN BERRY MD Oct 29, 2024 21:16
--- NOTE | 2024-10-29 21:16 | DVHPN2 ---
Consult Progress Note Objective vital signs Vital Sign Date Time Temp Pulse Resp B/P (MAP) Pulse Ox O2 Delivery O2 Flow Rate FiO2 10/29/24 20:30 87 20 139/90 (106) 100 10/29/24 20:00 98.1 98.1 10/29/24 20:00 Hi-Flow Heated NC+ 40 55 55 Total Intake and Output 10/28/24 10/28/24 10/29/24 15:00 23:00 07:00 Intake Total 836 ml 750 ml 802 ml Output Total 725 ml 475 ml Balance 836 ml 25 ml 327 ml medications Current Medications Medications Dose Ordered Sig/Dion Route Start Time Stop Time Status Last Admin Dose Admin Acetaminophen 650 mg Q6HP PRN [place] 10/10/24 10:00 10/10/24 15:18 650 MG Diagnostic Test (Pha) 1 strip Q6HR 10/11/24 00:00 10/29/24 18:22 1 STRIP Insulin Human Regular FOLLOW SLIDING SCALE Q6HR SC 10/11/24 00:00 10/29/24 18:24 2 UNITS Dextrose 50 ml UD IV 10/10/24 22:00 Amino Acids 0 ml @ 0 mls/hr PER PHARMACY IV 10/10/24 19:00 UNV Pantoprazole Sodium 40 mg DAILY IV 10/21/24 08:30 10/29/24 08:55 40 MG Ondansetron HCl 4 mg Q4HPRN PRN IV 10/24/24 02:00 10/24/24 20:08 4 MG Enoxaparin Sodium 40 mg DAILY SC 10/24/24 10:00 10/29/24 08:57 40 MG Aspirin 300 mg DAILY [place] 10/25/24 10:00 Acetylcysteine 100 mg Q6HR NEB 10/25/24 18:00 10/29/24 19:16 100 MG Albuterol 2.5 mg Q6HR NEB 10/25/24 18:00 10/29/24 19:16 2.5 MG Ipratropium [place] 0.5 mg Q6HR NEB 10/25/24 18:00 10/29/24 19:16 0.5 MG Haloperidol Lactate 5 mg Q8HP PRN IV 10/27/24 11:45 Vancomycin HCl 0 ml @ 0 mls/hr UD IV 10/27/24 20:00 Vancomycin HCl 350 ml @ 233.333 mls/hr DAILY@0900 IV 10/29/24 09:00 10/29/24 08:57 233.333 MLS/HR Piperacillin Sod/ Tazobactam Sod 100 ml @ 25 mls/hr Q6H IV 10/28/24 12:00 10/29/24 17:50 25 MLS/HR Amino Acids/ Electrolytes/ Dextrose 1,000 ml @ 41 mls/hr DAILY@2200 IV 10/28/24 22:00 Cancel Iron Sucrose 110 ml @ 110 mls/hr DAILY@1200 IV 10/29/24 12:00 11/02/24 12:59 10/29/24 15:37 110 MLS/HR Bumetanide 12.5 mg/Miscellaneous 50 ml @ 2 mls/hr Q24H IV 10/28/24 17:15 10/29/24 08:35 2 MLS/HR Enteral Nutritional Formula 1,000 ml 30ML/HR GT 10/29/24 18:15 laboratory and microbiology Laboratory Tests 10/29/24 03:30 Test 10/29/24 03:30 Range/Units Serum Glucose 203 H 74-106 mg/dL Dietary Evaluation Review Comments: 1) Add cardiac restriction to 60g CCHO diet 2) Initiate Glucerna qd. Encourage optimal PO intake 3) Follow-up with urology and surgery 4) Follow-up with social media designer r/t methamphetamine abuse 5) Continue to monitor I&O, labs, and skin integrity Expected Outcomes/Goals: 1) appetite and labs to improve 2) wound to improve 3) f/u in 3-5 days ERIN BERRY MD Oct 29, 2024 21:16
[2024-10-30] VITALS (104 sets, daily range): BP systolic 130–152; BP diastolic 84–140; PULSE 86–108; RESP 11–26; TEMP 98.2–98.9; O2SAT 90–100
[2024-10-30 04:47] LABS: Hematocrit 23.6 % (41.0-53.0); Hemoglobin 8.0 g/dL (13.5-17.5); Mean Corpuscular Hemoglobin 27.8 pg (28.0-32.0); Mean Corpuscular Volume 82.2 fL (80.0-100.0); Nucleated Red Blood Cells % 0.0 %
[2024-10-30 04:51] LABS: INR 1.59 (0.9-1.15); Partial Thromboplastin Time 38.8 SEC (24.5-34.5); Prothrombin Time 16.1 sec (9.3-11.8)
--- NOTE | 2024-10-30 04:51 | DVH ---
CHEST RADIOGRAPH Indication: Pneumoina Technique: Single frontal view of the chest was obtained COMPARISON: XY CHEST XRAY 1 VIEW on DOS: 10/29/24, XY CHEST XRAY 1 VIEW on DOS: 10/28/24, XY CHEST XRAY 1 VIEW on DOS: 10/27/24, XY CHEST PORTABLE on DOS: 10/26/24, XY CHEST PORTABLE on DOS: 10/25/24 FINDINGS: Lines and Tubes: Left internal jugular central venous catheter unchanged. Lungs: Stable diffuse multifocal bilateral pulmonary airspace disease with consolidative features. Sm all bilateral pleural effusions are unchanged. No pneumothorax. Cardiomediastinal contours: Unremarkable Bones: Unremarkable IMPRESSION: 1. Stable diffuse multifocal bilateral pulmonary airspace disease with consolidative features. 2. Stable small bilateral pleural effusions.
[2024-10-30 05:01] LABS: Alkaline Phosphatase 76 U/L (46-116); Anion Gap 11 (5-15); BUN/Creatinine Ratio 12.6 (10.0-20.0); Blood Urea Nitrogen 15 mg/dL (9-23); Carbon Dioxide 31 mmol/L (20-31); Chloride 102 mmol/L (98-107); Sodium 144 mmol/L (136-145); Total Protein 6.2 g/dL (5.7-8.2)
[2024-10-30 05:02] LABS: Bilirubin, Total 0.3 mg/dL (0.2-1.0)
[2024-10-30 05:03] LABS: Alanine Aminotransferase < 9 U/L (7-40); Albumin 2.3 g/dL (3.2-4.8); Calcium 7.6 mg/dL (8.7-10.4); Glucose 155 mg/dL (74-106); Potassium 2.8 mmol/L (3.5-5.1)
[2024-10-30] MEDS: POTASSIUM CHL 20MEQ/100ML 100 ML IV SCH (05:55)
--- NOTE | 2024-10-30 09:30 | DVHPN2 ---
Progress Note Date Seen: Oct 30, 2024 Resident Creating Document: NICOLETTE ROSADO RESIDENT Medical Necessity Reason Pt with a Central, PICC or Fol: Yes The following are medically ne: Central Line, Kan Catheter Subjective Review of Systems Patient seen and examined at bedside 100-150 cc mucoid watery rectal tube output Discontinued TPN Pending swallow evaluation Objective vital signs Vital Sign Date Time Temp Pulse Resp B/P (MAP) Pulse Ox O2 Delivery O2 Flow Rate FiO2 10/30/24 08:00 99 21 99 Hi-Flow Heated NC+ 40 55 55 10/30/24 06:45 137/91 (106) 10/30/24 04:00 98.6 98.6 Total Intake and Output 10/29/24 10/29/24 10/30/24 15:00 23:00 07:00 Intake Total 1018.666 ml 720 ml 114 ml Output Total 2250 ml 2600 ml Balance 1018.666 ml -1530 ml -2486 ml medications Current Medications Medications Dose Ordered Sig/Dion Route Start Time Stop Time Status Last Admin Dose Admin Acetaminophen 650 mg Q6HP PRN [place] 10/10/24 10:00 10/10/24 15:18 650 MG Diagnostic Test (Pha) 1 strip Q6HR 10/11/24 00:00 10/30/24 05:23 1 STRIP Insulin Human Regular FOLLOW SLIDING SCALE Q6HR SC 10/11/24 00:00 10/30/24 05:28 2 UNITS Dextrose 50 ml UD IV 10/10/24 22:00 Amino Acids 0 ml @ 0 mls/hr PER PHARMACY IV 10/10/24 19:00 UNV Pantoprazole Sodium 40 mg DAILY IV 10/21/24 08:30 10/30/24 09:03 40 MG Ondansetron HCl 4 mg Q4HPRN PRN IV 10/24/24 02:00 10/24/24 20:08 4 MG Enoxaparin Sodium 40 mg DAILY SC 10/24/24 10:00 10/30/24 09:04 40 MG Aspirin 300 mg DAILY NE 10/25/24 10:00 Acetylcysteine 100 mg Q6HR NEB 10/25/24 18:00 10/30/24 06:13 100 MG Albuterol 2.5 mg Q6HR NEB 10/25/24 18:00 10/30/24 06:13 2.5 MG Ipratropium [place] 0.5 mg Q6HR NEB 10/25/24 18:00 10/30/24 06:13 0.5 MG Haloperidol Lactate 5 mg Q8HP PRN IV 10/27/24 11:45 Vancomycin HCl 0 ml @ 0 mls/hr UD IV 10/27/24 20:00 Vancomycin HCl 350 ml @ 233.333 mls/hr DAILY@0900 IV 10/29/24 09:00 10/30/24 08:47 233.333 MLS/HR Piperacillin Sod/ Tazobactam Sod 100 ml @ 25 mls/hr Q6H IV 10/28/24 12:00 10/30/24 05:21 25 MLS/HR Amino Acids/ Electrolytes/ Dextrose 1,000 ml @ 41 mls/hr DAILY@2200 IV 10/28/24 22:00 Cancel Iron Sucrose 110 ml @ 110 mls/hr DAILY@1200 IV 10/29/24 12:00 11/02/24 12:59 10/29/24 15:37 110 MLS/HR Bumetanide 12.5 mg/Miscellaneous 50 ml @ 2 mls/hr Q24H IV 10/28/24 17:15 10/30/24 05:23 2 MLS/HR Enteral Nutritional Formula 1,000 ml 30ML/HR GT 10/29/24 18:15 Potassium Chloride 100 ml @ 50 mls/hr Q2H IV 10/30/24 05:45 10/30/24 13:44 10/30/24 08:47 50 MLS/HR Examination General Appearance: Alert, Oriented X1, noncooperative, No acute distress HEENT: Atraumatic, PERRLA, EOMI, Mucous membrane moist/pink Respiratory: Clear to auscultation, Normal air movement Cardiovascular: Regular rate, Normal S1, Normal S2, No murmurs, no chest wall tenderness Abdominal: Normal bowel sounds, Soft, No tenderness, No hepatospenomegaly, No masses Extremities: Mobilization of limbs cannot be evaluated. Skin is dry and warm. bilateral pedal edema +, S/P rt toe debridement and covered with dressing. Neuro: Strength at 5/5 X4 ext, Normal tone, Sensation intact, Cranial nerves 3- 12 NL, Reflexes 2+ Psych/Mental Status: Could not be assessed. laboratory and microbiology Laboratory Tests 10/30/24 03:00 Test 10/30/24 03:00 Range/Units Serum Glucose 155 H 74-106 mg/dL Microbiology Date/Time Source Procedure Growth Status 10/28/24 18:40 Blood Blood Culture - Preliminary NO GROWTH AFTER 24 HOURS OF INCUBATION. Resulted 10/27/24 19:53 Sputum Gram Stain - Final Resulted 10/27/24 19:53 Sputum Respiratory Culture - Preliminary Resulted 10/16/24 17:40 Catheter Tip Aerobic Culture - Final Complete 10/16/24 09:39 Penis Aerobic Culture - Final Methicillin Resistant S.aureus Presumptive Hellen tropicalis Complete 10/14/24 22:10 Voided Urine Urine Culture - Final Presumptive Hellen tropicalis Complete Labs and/or images reviewed: Labs reviewed by me, Image(s) reviewed by me Problem List/Assessment/Plan Problem List/Assessment/Plan Anemia, possibly related to chronic disease with MCV 86.5 JAYLEEN likely VMN on CKD Acute hypoxic respiratory failure, on mechanical ventilation. Plans to extubate today Proctitis MRSA bacteremia Septic emboli due to above Acute left MCA stroke Infective endocarditis with mitral valve vegetations acute complicated cystitis psoas abscess? Sepsis Ruled out ileus Plan: Consider limiting blood draws Hold lactulose if diarrhea continues IV iron H&H stable today Continue conservative management, observation Stool occult blood negative IV Protonix b.i.d. Continue antibiotics Thank you so much for the opportunity to consult on your patient. GI team will follow the patient. In case of any questions or concerns please feel free to reach out. Plan discussed with Dr. Saunders Plan discussed with: Other (RN) Dietary Evaluation Review Comments: 1) Add cardiac restriction to 60g CCHO diet 2) Initiate Glucerna qd. Encourage optimal PO intake 3) Follow-up with urology and surgery 4) Follow-up with social work program coordinator r/t methamphetamine abuse 5) Continue to monitor I&O, labs, and skin integrity Expected Outcomes/Goals: 1) appetite and labs to improve 2) wound to improve 3) f/u in 3-5 days NICOLETTE ROSADO RESIDENT Oct 30, 2024 09:30
--- NOTE | 2024-10-30 10:11 | DVHPN2 ---
Progress Note - Dictate Date Seen: Oct 30, 2024 Medical Necessity Reason Pt with a Central, PICC or Fol: Yes The following are medically ne: Central Line, Akn Catheter Subjective Mr. Velazquez is a 39 years old gentleman with a history of diabetes, GERD, bipolar disorder, schizophrenia, chronic diabetic ulcer, he was brought to the [facility] on 10/02/2024 with a chief company of fever, the patient is also noticed to have altered mental status, in the CT brain scan showed evidence suggestive of left MCA territory acute stroke. I have seen and examined the patient, talked to his nurse, he is awake, eyes open, he responsive to verbal stimuli, he tracks, he does not talk or follow my verbal commands. He moves the arms minimally Blood culture, 10/02/2024: MRSA Blood culture, 10/03/2024: MRSA Blood culture, 10/04/2024: MRSA UDS, 10/03/2024: Amphetamine, 10/05/24: Negative Urinalysis, 10/02/2024: WBC: 30, urine leukocyte esterase: Trace WBC/HB/PLT/MCV, 10/06/2024: 5/8.7/130/82.4, 10/10/2024: 6.5/8.1/211/84.5, 10/11/2024: 6.1/7.5/176/85.9, 10/21/2024: 6/8.4/147/81.6, 10/27/2024: 9.9/7/149/84.1 PTT/INR/eight six, 10/02/2024: 12.3/1.18/34.4 Na, 10/07/2024: 144 10/10/2024: 151, 10/11/2024: 148, 10/24/2024: 146, 10/25/2024: 149 CMP, 10/05/2024: Unremarkable BUN/CR, 10/10/2024: 22/0.96, 10/11/2024: 32/1.94 GFR, 10/10/2024: 102, 10/11/2024: 44 Lactic acid, 10/24/2024: 2.1 Liver function tests, 10/11/2024: Unremarkable HGB A1c, 05/10/2023: >14 TG/HDL/LDL/HDL, 10/07/2024: 153/87/39/9 TIM, 10/14/2024: Left Ventricle: Normal LV size and function, LVEF estimated at 60% Right Ventricle: NOrmal RV size and function Left atrium: normal Right atrium: normal RA Left atrial appendage: no thrombus noted, d Aortic valve: trileaflet valve, no severe or AI Mitral Valve: structurally normal, anterior leaflet has 0. 8 cm vegetation with stalk . 0.8 x 0.4 cm, no significant MR is noted however, no abscess noted Tricuspid Valve: mild tricuspid regurgitaiton, no TS Pulmonic Valve: structurally normal, no severe PIor PS Interatrial septum: negative color flow for R to L shunt, negative bubble study Ascending aorta: no severe plaquing Echocardiogram, 10/06/2024: Technically good study. Off axis views. Limited views obtained. There appears to be biatrial enlargement and LV enlargement. Mild aortic root enlargement. Valves appear to be structurally normal. Left ventricular function is borderline at 45 to 50% anteroseptal hypokinesis.. Normal RV function. Mild TR. No pericardial effusion masses or vegetations. CT head, 10/05/2024: Acute left MCA territory infarct in left insula/temporal operculum/temporal lobe. No hemorrhage or mass effect Sedated, 10/09/2024: 1. Interval progression in evolution of left middle cerebral artery territory infarct involving the insula / temporal are operculum/ temporal lobe with associated loss of khoury-white matter differentiation and progressively diminished parenchymal attenuation. 2. No evidence of intracranial hemorrhage, mass effect, midline shift or herniation. 3. Chronic sequelae of microangiopathy and atrophic cortical volume loss. CT abdomen/pelvis, 10/06/2024: 1. Trace bilateral pleural effusions with adjacent atelectasis and patchy posterior bibasilar pulmonary infiltrate. 2. Hepatomegaly. 3. Excess retained colorectal stool and moderate proximal mechanical small-bowel obstruction. 4. Moderate gas and Kan catheter within the urinary bladder CT abdomen/pelvis, 10/16/2024: Foci of air at the left psoas muscle with erosive changes at the left anterior sacroiliac joint. Findings are concerning for acute osteomyelitis/septic arthritis with left psoas muscle abscess. Evaluated on this study is extremely limited due to lack of IV contrast and artifact. Suggest MRI with and without IV contrast for further evaluation. If MRI cannot be performed, contrast enhanced CT is suggested. Small to moderate amount of ascites. Extensive body wall edema. Small to moderate left and small right pleural effusions. Diabetes mellitus. Constipation. CTA head, neck, 10/05/2024: 1. No evidence of acute intracranial hemorrhage, mass effect or hydrocephalus. 2. No evidence of hemodynamically significant intracranial stenosis, proximal occlusion or aneurysm. 3. No evidence of hemodynamically significant cervical stenosis or dissection MRI head, 10/15/2024: 1. Large area of diffusion restriction of the left posterior temporal lobe and left parietal lobe. 2. Small areas of punctate infarction along the right posterior frontal lobe to parietal lobe. 3. Imaging pattern may be compatible with embolic phenomenon vital signs Vital Sign Date Time Temp Pulse Resp B/P (MAP) Pulse Ox O2 Delivery O2 Flow Rate FiO2 10/30/24 09:30 99 16 90 30.0 30 10/30/24 09:15 142/88 (106) 10/30/24 08:00 98.8 98.8 10/30/24 08:00 Hi-Flow Heated NC+ Total Intake and Output 10/29/24 10/29/24 10/30/24 15:00 23:00 07:00 Intake Total 1018.666 ml 720 ml 316 ml Output Total 2250 ml 2600 ml Balance 1018.666 ml -1530 ml -2284 ml medications Current Medications Medications Dose Ordered Sig/Dion Route Start Time Stop Time Status Last Admin Dose Admin Acetaminophen 650 mg Q6HP PRN [place] 10/10/24 10:00 10/10/24 15:18 650 MG Diagnostic Test (Pha) 1 strip Q6HR 10/11/24 00:00 10/30/24 05:23 1 STRIP Insulin Human Regular FOLLOW SLIDING SCALE Q6HR SC 10/11/24 00:00 10/30/24 05:28 2 UNITS Dextrose 50 ml UD IV 10/10/24 22:00 Amino Acids 0 ml @ 0 mls/hr PER PHARMACY IV 10/10/24 19:00 UNV Pantoprazole Sodium 40 mg DAILY IV 10/21/24 08:30 10/30/24 09:03 40 MG Ondansetron HCl 4 mg Q4HPRN PRN IV 10/24/24 02:00 10/24/24 20:08 4 MG Enoxaparin Sodium 40 mg DAILY SC 10/24/24 10:00 10/30/24 09:04 40 MG Aspirin 300 mg DAILY [place] 10/25/24 10:00 Acetylcysteine 100 mg Q6HR NEB 10/25/24 18:00 10/30/24 06:13 100 MG Albuterol 2.5 mg Q6HR NEB 10/25/24 18:00 10/30/24 06:13 2.5 MG Ipratropium [place] 0.5 mg Q6HR NEB 10/25/24 18:00 10/30/24 06:13 0.5 MG Haloperidol Lactate 5 mg Q8HP PRN IV 10/27/24 11:45 Vancomycin HCl 0 ml @ 0 mls/hr UD IV 10/27/24 20:00 Vancomycin HCl 350 ml @ 233.333 mls/hr DAILY@0900 IV 10/29/24 09:00 10/30/24 08:47 233.333 MLS/HR Piperacillin Sod/ Tazobactam Sod 100 ml @ 25 mls/hr Q6H IV 10/28/24 12:00 10/30/24 05:21 25 MLS/HR Amino Acids/ Electrolytes/ Dextrose 1,000 ml @ 41 mls/hr DAILY@2200 IV 10/28/24 22:00 Cancel Iron Sucrose 110 ml @ 110 mls/hr DAILY@1200 IV 10/29/24 12:00 11/02/24 12:59 10/29/24 15:37 110 MLS/HR Bumetanide 12.5 mg/Miscellaneous 50 ml @ 2 mls/hr Q24H IV 10/28/24 17:15 10/30/24 05:23 2 MLS/HR Enteral Nutritional Formula 1,000 ml 30ML/HR GT 10/29/24 18:15 Potassium Chloride 100 ml @ 50 mls/hr Q2H IV 10/30/24 05:45 10/30/24 13:44 10/30/24 09:53 50 MLS/HR objective General: the patient is well developed and nourished. No acute distress MENTAL STATUS: Subjective SPEECH, LANGUAGE, HIGHER CORTICAL FUNCTION: Subjective CRANIAL NERVES: Pupils are equal, round and reactive. Eyes are closed. No sign of facial weakness. Sensory and motor examination is unremarkable in bilateral trigeminal distribution SENSATION: Responsive to pain in the light touch MOTOR: Muscle tone feels normal, he moves the arms REFLEXES: Deep tendon reflexes feel symmetrical. No pathological reflexes. CEREBELLAR/COORDINATION: Deferred GAIT/STATION: deferred laboratory and microbiology Laboratory Tests 10/30/24 03:00 Test 10/30/24 03:00 Range/Units Serum Glucose 155 H 74-106 mg/dL Problem List Altered mental status, secondary to Acute stroke Metabolic encephalopathy Acute respiratory failure Acute stroke Sepsis with MRSA Chronic diabetic wound, status post debridement on 10/15/2024 Endocarditis Osteomyelitis Psoas abscess History of substance abuse Assessment/Plan Monitoring Supportive treatment ICU care Follow up tests Stabilize vitals Respiratory support Aspirin 81 mg daily/300 mg AL, on hold IV antibiotics Haldol p.r.n. for agitation DVT prophylaxis/Lovenox Infectious disease on case Need to quit substance abuse Orthopedic on case More recommendation per clinical course This medical document was created using an electronic medical record system with [employer] dictation system. Although this document has been carefully reviewed, there may still be some phonetic and typographical errors. These areas are purely typographical due to imperfections of the software programs, and do not reflect any compromise in the patient's medical care. Prognosis poor Dietary Evaluation Review Comments: 1) Add cardiac restriction to 60g CCHO diet 2) Initiate Glucerna qd. Encourage optimal PO intake 3) Follow-up with urology and surgery 4) Follow-up with social security specialist r/t methamphetamine abuse 5) Continue to monitor I&O, labs, and skin integrity Expected Outcomes/Goals: 1) appetite and labs to improve 2) wound to improve 3) f/u in 3-5 days Plan discussed with: Other CALEB PAYNE MD Oct 30, 2024 10:11
--- NOTE | 2024-10-30 15:25 | DVHPN2 ---
Progress Note Date Seen: Oct 30, 2024 Medical Necessity Reason Pt with a Central, PICC or Fol: Yes The following are medically ne: Central Line, Shaikh Catheter Subjective Patient reports: Feels worse Review of Systems: Deferred Objective vital signs Vital Sign Date Time Temp Pulse Resp B/P (MAP) Pulse Ox O2 Delivery O2 Flow Rate FiO2 10/30/24 15:00 90 14 144/93 (110) 95 10/30/24 14:00 Hi-Flow Heated NC+ 30 30 30 10/30/24 12:00 98.2 98.2 Total Intake and Output 10/29/24 10/29/24 10/30/24 15:00 23:00 07:00 Intake Total 1018.666 ml 720 ml 316 ml Output Total 2250 ml 2600 ml Balance 1018.666 ml -1530 ml -2284 ml medications Current Medications Medications Dose Ordered Sig/Dion Route Start Time Stop Time Status Last Admin Dose Admin Acetaminophen 650 mg Q6HP PRN [place] 10/10/24 10:00 10/10/24 15:18 650 MG Diagnostic Test (Pha) 1 strip Q6HR 10/11/24 00:00 10/30/24 12:00 1 STRIP Insulin Human Regular FOLLOW SLIDING SCALE Q6HR SC 10/11/24 00:00 10/30/24 05:28 2 UNITS Dextrose 50 ml UD IV 10/10/24 22:00 Amino Acids 0 ml @ 0 mls/hr PER PHARMACY IV 10/10/24 19:00 UNV Pantoprazole Sodium 40 mg DAILY IV 10/21/24 08:30 10/30/24 09:03 40 MG Ondansetron HCl 4 mg Q4HPRN PRN IV 10/24/24 02:00 10/24/24 20:08 4 MG Enoxaparin Sodium 40 mg DAILY SC 10/24/24 10:00 10/30/24 09:04 40 MG Aspirin 300 mg DAILY SD 10/25/24 10:00 Acetylcysteine 100 mg Q6HR NEB 10/25/24 18:00 10/30/24 12:19 100 MG Albuterol 2.5 mg Q6HR NEB 10/25/24 18:00 10/30/24 12:19 2.5 MG Ipratropium [place] 0.5 mg Q6HR NEB 10/25/24 18:00 10/30/24 12:19 0.5 MG Haloperidol Lactate 5 mg Q8HP PRN IV 10/27/24 11:45 Vancomycin HCl 0 ml @ 0 mls/hr UD IV 10/27/24 20:00 Vancomycin HCl 350 ml @ 233.333 mls/hr DAILY@0900 IV 10/29/24 09:00 10/30/24 08:47 233.333 MLS/HR Piperacillin Sod/ Tazobactam Sod 100 ml @ 25 mls/hr Q6H IV 10/28/24 12:00 10/30/24 12:00 25 MLS/HR Amino Acids/ Electrolytes/ Dextrose 1,000 ml @ 41 mls/hr DAILY@2200 IV 10/28/24 22:00 Cancel Bumetanide 12.5 mg/Miscellaneous 50 ml @ 2 mls/hr Q24H IV 10/28/24 17:15 10/30/24 05:23 2 MLS/HR Enteral Nutritional Formula 1,000 ml 30ML/HR GT 10/29/24 18:15 laboratory and microbiology Laboratory Tests 10/30/24 03:00 Test 10/30/24 03:00 Range/Units Serum Glucose 155 H 74-106 mg/dL Microbiology Date/Time Source Procedure Growth Status 10/28/24 18:40 Blood Blood Culture - Preliminary NO GROWTH AFTER 24 HOURS OF INCUBATION. Resulted 10/27/24 19:53 Sputum Gram Stain - Final Resulted 10/27/24 19:53 Sputum Respiratory Culture - Preliminary Resulted 10/16/24 17:40 Catheter Tip Aerobic Culture - Final Complete 10/16/24 09:39 Penis Aerobic Culture - Final Methicillin Resistant S.aureus Presumptive Hellen tropicalis Complete 10/14/24 22:10 Voided Urine Urine Culture - Final Presumptive Hellen tropicalis Complete Problem List/Assessment/Plan Problem List/Assessment/Plan Acute kidney injury multifactorial hemodynamically mediated, FeNa < 1% Acute respiratory failure, patient intubated on ventilator/extubated Vancomycin nephrotoxicity Septic shock Acute CVA MRSA bacteremia Bacterial endocarditis, severe MR Lower extremity MRSA wound infection BPH status post TURP with indwelling Shaikh catheter d History of methamphetamine abuse Hypoalbuminemia multiple electrolyte abnormalities- hypokalemia, hypophosphatemia, hypoMg, hypernatremia improved new severe MR w/ flash pulmonary edema when shaikh was removed had retention now replaced 4.5L UOP noted extubated,, on high-flow nasal cannula D5W IV /free water potassium replacement, Mg, Phos replacement now on IV bumex drip , consider OGT tube feeds and adding aldactone po BID for K sparring diuresis on iv abx Plan discussed with: Other Dietary Evaluation Review Comments: 1) Add cardiac restriction to 60g CCHO diet 2) Initiate Glucerna qd. Encourage optimal PO intake 3) Follow-up with urology and surgery 4) Follow-up with social science manager r/t methamphetamine abuse 5) Continue to monitor I&O, labs, and skin integrity Expected Outcomes/Goals: 1) appetite and labs to improve 2) wound to improve 3) f/u in 3-5 days Critical Care Time (mins): 33 MEEK DEL CID MD Oct 30, 2024 15:25
--- NOTE | 2024-10-30 18:56 | DVHPNRES ---
Progress Note Date Seen: Oct 30, 2024 Resident Creating Document: ERNIE RONDON RESDIENT Medical Necessity Reason Pt with a Central, PICC or Fol: Yes The following are medically ne: Central Line, Kan Catheter Subjective Review of Systems Seen and examined at the bedside. Patient is alert, awake, but can not communicate. Objective vital signs Vital Sign Date Time Temp Pulse Resp B/P (MAP) Pulse Ox O2 Delivery O2 Flow Rate FiO2 10/30/24 17:59 108 21 93 30.0 30 10/30/24 16:00 98.6 137/87 (104) 98.6 10/30/24 16:00 Hi-Flow Heated NC+ Total Intake and Output 10/29/24 10/29/24 10/30/24 15:00 23:00 07:00 Intake Total 1018.666 ml 720 ml 316 ml Output Total 2250 ml 2600 ml Balance 1018.666 ml -1530 ml -2284 ml medications Current Medications Medications Dose Ordered Sig/Dion Route Start Time Stop Time Status Last Admin Dose Admin Acetaminophen 650 mg Q6HP PRN [place] 10/10/24 10:00 10/10/24 15:18 650 MG Diagnostic Test (Pha) 1 strip Q6HR 10/11/24 00:00 10/30/24 17:21 1 STRIP Insulin Human Regular FOLLOW SLIDING SCALE Q6HR SC 10/11/24 00:00 10/30/24 05:28 2 UNITS Dextrose 50 ml UD IV 10/10/24 22:00 Amino Acids 0 ml @ 0 mls/hr PER PHARMACY IV 10/10/24 19:00 UNV Pantoprazole Sodium 40 mg DAILY IV 10/21/24 08:30 10/30/24 09:03 40 MG Ondansetron HCl 4 mg Q4HPRN PRN IV 10/24/24 02:00 10/24/24 20:08 4 MG Enoxaparin Sodium 40 mg DAILY SC 10/24/24 10:00 10/30/24 09:04 40 MG Aspirin 300 mg DAILY [place] 10/25/24 10:00 Acetylcysteine 100 mg Q6HR NEB 10/25/24 18:00 10/30/24 17:55 100 MG Albuterol 2.5 mg Q6HR NEB 10/25/24 18:00 10/30/24 17:55 2.5 MG Ipratropium [place] 0.5 mg Q6HR NEB 10/25/24 18:00 10/30/24 17:55 0.5 MG Haloperidol Lactate 5 mg Q8HP PRN IV 10/27/24 11:45 Vancomycin HCl 0 ml @ 0 mls/hr UD IV 10/27/24 20:00 Vancomycin HCl 350 ml @ 233.333 mls/hr DAILY@0900 IV 10/29/24 09:00 10/30/24 08:47 233.333 MLS/HR Piperacillin Sod/ Tazobactam Sod 100 ml @ 25 mls/hr Q6H IV 10/28/24 12:00 10/30/24 17:21 25 MLS/HR Amino Acids/ Electrolytes/ Dextrose 1,000 ml @ 41 mls/hr DAILY@2200 IV 10/28/24 22:00 Cancel Bumetanide 12.5 mg/Miscellaneous 50 ml @ 2 mls/hr Q24H IV 10/28/24 17:15 10/30/24 05:23 2 MLS/HR Enteral Nutritional Formula 1,000 ml 30ML/HR GT 10/29/24 18:15 Examination General Appearance: Alert, calm, in mild respiratory distress HEENT: Atraumatic, PERRLA, EOMI, Mucous membrane moist/pink Respiratory: Bilateral crackles Cardiovascular: Pansystolic murmur at mitral area Abdominal: Normal bowel sounds, Soft, No tenderness, No hepatospenomegaly, No masses Extremities: No clubbing, No cyanosis, No edema, Normal pulses, No tenderness/swelling Skin: A clean wound observed on the plantar surface of right toe, sutures intact with no sign of infection laboratory and microbiology Laboratory Tests 10/30/24 03:00 Test 10/30/24 03:00 Range/Units Serum Glucose 155 H 74-106 mg/dL Microbiology Date/Time Source Procedure Growth Status 10/28/24 18:40 Blood Blood Culture - Preliminary NO GROWTH AFTER 24 HOURS OF INCUBATION. Resulted 10/27/24 19:53 Sputum Gram Stain - Final Resulted 10/27/24 19:53 Sputum Respiratory Culture - Preliminary Resulted 10/16/24 17:40 Catheter Tip Aerobic Culture - Final Complete 10/16/24 09:39 Penis Aerobic Culture - Final Methicillin Resistant S.aureus Presumptive Hellen tropicalis Complete 10/14/24 22:10 Voided Urine Urine Culture - Final Presumptive Hellen tropicalis Complete Labs and/or images reviewed: Labs reviewed by me Problem List/Assessment/Plan Problem List/Assessment/Plan 39-year-old male with past medical history of diabetes (uncontrolled), chronic diabetic ulcer, bipolar and methamphetamine use disorder, came to the hospital due to fever, generalized weakness, and abdominal pain admitted on 10/02/2024, with a primary diagnosis of infective endocarditis leading to septic emboli to the brain. Patient was extubated on 10/23/2024. NEURO: Acute metabolic encephalopathy secondary to ischemic stroke/sepsis Possible septic emboli due to persistent MRSA bacteremia History of Bipolar disorder Head CT on 10/05/2024 showed Acute left MCA territory infarct Head CT and neck CT angio on 10/06/2024 showed, No evidence of hemodynamically significant intracranial and cervical stenosis, occlusion, aneurysm or dissection Brain MRI on 10/15/2024 showed, Large area of diffusion restriction of the left posterior temporal lobe, left parietal lobe, small areas of punctate infarction along the right posterior frontal lobe to parietal lobe. Imaging pattern may be compatible with embolic phenomenon * Plan: Aspirin daily and Haldol p.r.n. for agitation CARDIOVASCULAR: Acute infective endocarditis of mitral valve Possible diastolic dysfunction/diastolic heart failure Severe mitral regurgitation, likely due to infective endocarditis Possible pulmonary edema due to MR * TIM 10/14/24 showed, Mitral Valve anterior leaflet has 0. 8 cm vegetation with stalk . 0.8 x 0.4 cm, no significant MR or abscess noted, LV size and function normal (EF 60%) * TTE on 10/06/2024, Left ventricular function is borderline at 45 to 50% anteroseptal hypokinesis, showed Mild aortic root enlargement. Valves appear to be structurally normal. * Multiple blood culture has been positive for MRSA, blood culture from 10/20/2024 shows no growth after 5 days * Previously given daptomycin (started on 10/14, stopped on 10/27) and ceftaroline (started on 10/19) * Echo 10/29, shows severe mitral regurgitation with a EF 60% * Plan: Bumex drip 0.5 mg/hour PULMONARY: Acute hypoxic respiratory failure, likely due to pneumonia Left-sided pleural effusion Possible aspiration pneumonia * Chest x-ray shows, diffuse multifocal bilateral pulmonary infiltration in all lung zones with suspected small left pleural effusion, worsening * Abdominopelvic CT on 10/16 showed small to moderate left and small right pleural effusion * Chest ultrasound on 10/21 showed small bilateral pleural effusions * Sputum culture from 10/10/2024 shows no growth * IR consulted for effusion, due to small size does not drain * Plan: On breathing treatment and acetyl cystine GASTROINTESTINAL: Possible proctitis Possible gastroenteritis Ascites * CT scan on 09/24/2024 showed, shows rectal wall thickening * CT abdominopelvic on 10/06 showed excess retained colorectal stool and moderate proximal mechanical small-bowel obstruction * CT on 10/16 showed, foci of air at the left psoas muscle with erosive changes at the left anterior sacroiliac joint. Findings are concerning for acute osteomyelitis/septic arthritis with left psoas muscle abscess. Recommend MRI with contrast or CT with contrast * CT in on 10/16 showed [id number] amount of ascites GENITOURINARY: JAYLEEN likely due to VMN/ vancomycin toxicity, resolved Complicated UTI, due to MRSA Urinary retention * History of possible prostatic abscess, status post surgery ENDOCRINE: Uncontrolled diabetes type 2 with HGB A1c 13.2 Diabetic foot ulcer, status post I&D on 10/15 * Scan on 10/07 showed, erosive changes involving the proximal and distal 1st phalanx with involvement of the IP joint * Deep Wound culture from 10/15 showed MRSA and Enterococcus faecalis sensitive to daptomycin * Plan: On sliding scale of insulin METABOLIC: Severe protein malnutrition Hypophosphatemia Hyperphosphatemia Hypomagnesemia Persistent hypokalemia Hypernatremia, resolved HEME: Severe anemia, normocytic normochromic, status post 2 PRBC transfusion * Transfused 1 pt of blood 10/29 * Plan: IV iron INFECTIOUS DISEASE: Persistent MRSA bacteremia Infective endocarditis of mitral valve Infected diabetic foot ulcer Complicated UTI Possible proctitis * Plan: Continue vancomycin (10/27) and Zosyn (10/27), repeat blood culture and sputum MUSCULOSKELETAL: Psoas muscle abscess Possible sacroiliitis * CT scan from 09/24/2024 showed, evidence of left sacroiliitis with gas and fluid extending into left pelvic muscles likely representing abscess. Suboptimal characterization due to lack of contrast. Bilateral inguinal adenopathy is likely reactive * Plan: Radiology planning for drainage once patients get more stabilized/calm DVT prophylax: Lovenox GI prophylaxis: Protonix Code status: Full code LINES/DRAINS/ACCESS: ETT: Intubated on 10/10, extubated on 10/23 IV access: Left IJ, placed on 10/16 Drips: Off from pressor and sedated Kan catheter: Placed on 10/02, replaced on 10/29 DISPOSITION: ICU status Patient's status discussed with patient's mom at the bedside, updated of patient's current status, poor prognosis and goal of care. Patient's mom request, 1-2 days for to take decision. Critical care time spent more than 96 minutes, including patient care, chart review, and updating the family. Excluding any procedures. Case discussed with Dr. Galeano Plan discussed with: Patient My Orders My Orders Orders - ERNIE RONDON RESDIMARY Procedure Category Date Status Time St Eval Swallow Funct ST 10/30/24 Logged 45min 09:28 Complete Blood Count LAB 10/31/24 Verified 04:00 Comprehensive LAB 10/31/24 Verified Metabolic Panel 04:00 Chest Xray 1 View XY 10/31/24 Logged 04:00 Abg W/ Co-Ox RT 10/31/24 Logged 04:00 Dietary Evaluation Review Comments: 1) Add cardiac restriction to 60g CCHO diet 2) Initiate Glucerna qd. Encourage optimal PO intake 3) Follow-up with urology and surgery 4) Follow-up with mental health social worker r/t methamphetamine abuse 5) Continue to monitor I&O, labs, and skin integrity Expected Outcomes/Goals: 1) appetite and labs to improve 2) wound to improve 3) f/u in 3-5 days Date of Service: Oct 30, 2024 Billing Provider: DEE DEE GALEANO MD Common Visit Codes: 18283-RLDCVTOE CARE 30-74 MIN, 10045-[id number] CARE-EACH +30MIN ERNIE RONDON RESDIENT Oct 30, 2024 18:56 DEE DEE GALEANO MD Nov 02, 2024 11:03
--- NOTE | 2024-10-30 23:29 | DVHPN2 ---
Consult Progress Note Objective vital signs Vital Sign Date Time Temp Pulse Resp B/P (MAP) Pulse Ox O2 Delivery O2 Flow Rate FiO2 10/30/24 20:00 97 10/30/24 20:00 16 98 Nasal Cannula* 6 44 10/30/24 18:45 130/91 (104) 10/30/24 16:00 98.6 98.6 Total Intake and Output 10/29/24 10/29/24 10/30/24 15:00 23:00 07:00 Intake Total 1018.666 ml 720 ml 316 ml Output Total 2250 ml 2600 ml Balance 1018.666 ml -1530 ml -2284 ml medications Current Medications Medications Dose Ordered Sig/Dion Route Start Time Stop Time Status Last Admin Dose Admin Acetaminophen 650 mg Q6HP PRN [place] 10/10/24 10:00 10/10/24 15:18 650 MG Diagnostic Test (Pha) 1 strip Q6HR 10/11/24 00:00 10/30/24 17:21 1 STRIP Insulin Human Regular FOLLOW SLIDING SCALE Q6HR SC 10/11/24 00:00 10/30/24 05:28 2 UNITS Dextrose 50 ml UD IV 10/10/24 22:00 Amino Acids 0 ml @ 0 mls/hr PER PHARMACY IV 10/10/24 19:00 UNV Pantoprazole Sodium 40 mg DAILY IV 10/21/24 08:30 10/30/24 09:03 40 MG Ondansetron HCl 4 mg Q4HPRN PRN IV 10/24/24 02:00 10/24/24 20:08 4 MG Enoxaparin Sodium 40 mg DAILY SC 10/24/24 10:00 10/30/24 09:04 40 MG Aspirin 300 mg DAILY [place] 10/25/24 10:00 Acetylcysteine 100 mg Q6HR NEB 10/25/24 18:00 10/30/24 17:55 100 MG Albuterol 2.5 mg Q6HR NEB 10/25/24 18:00 10/30/24 17:55 2.5 MG Ipratropium [place] 0.5 mg Q6HR NEB 10/25/24 18:00 10/30/24 17:55 0.5 MG Haloperidol Lactate 5 mg Q8HP PRN IV 10/27/24 11:45 Vancomycin HCl 0 ml @ 0 mls/hr UD IV 10/27/24 20:00 Vancomycin HCl 350 ml @ 233.333 mls/hr DAILY@0900 IV 10/29/24 09:00 10/30/24 08:47 233.333 MLS/HR Piperacillin Sod/ Tazobactam Sod 100 ml @ 25 mls/hr Q6H IV 10/28/24 12:00 10/30/24 17:21 25 MLS/HR Amino Acids/ Electrolytes/ Dextrose 1,000 ml @ 41 mls/hr DAILY@2200 IV 10/28/24 22:00 Cancel Bumetanide 12.5 mg/Miscellaneous 50 ml @ 2 mls/hr Q24H IV 10/28/24 17:15 10/30/24 05:23 2 MLS/HR Enteral Nutritional Formula 1,000 ml 30ML/HR GT 10/29/24 18:15 laboratory and microbiology Laboratory Tests 10/30/24 03:00 Test 10/30/24 03:00 Range/Units Serum Glucose 155 H 74-106 mg/dL Dietary Evaluation Review Comments: 1) Add cardiac restriction to 60g CCHO diet 2) Initiate Glucerna qd. Encourage optimal PO intake 3) Follow-up with urology and surgery 4) Follow-up with social and human services assistant r/t methamphetamine abuse 5) Continue to monitor I&O, labs, and skin integrity Expected Outcomes/Goals: 1) appetite and labs to improve 2) wound to improve 3) f/u in 3-5 days ERIN BERRY MD Oct 30, 2024 23:29
[2024-10-31] VITALS (80 sets, daily range): BP systolic 124–150; BP diastolic 71–103; PULSE 90–124; RESP 12–33; TEMP 97.9–100.4; O2SAT 87–100
[2024-10-31] MEDS: HALOPERIDOL LACTATE 5 MG/ML INJ VIAL IV PRN (01:42)
[2024-10-31 03:56] LABS: Hematocrit 22.1 % (41.0-53.0); Mean Corpuscular Hemoglobin 28.2 pg (28.0-32.0); Nucleated Red Blood Cells % 0.1 %
[2024-10-31 03:58] LABS: Hemoglobin 7.7 g/dL (13.5-17.5); Mean Corpuscular Volume 81.6 fL (80.0-100.0)
[2024-10-31 04:10] LABS: Alkaline Phosphatase 81 U/L (46-116); Anion Gap 12 (5-15); BUN/Creatinine Ratio 11.9 (10.0-20.0); Blood Urea Nitrogen 15 mg/dL (9-23); Carbon Dioxide 30 mmol/L (20-31); Chloride 100 mmol/L (98-107); Sodium 142 mmol/L (136-145); Total Protein 6.2 g/dL (5.7-8.2)
[2024-10-31 04:11] LABS: Bilirubin, Total 0.3 mg/dL (0.2-1.0)
[2024-10-31 04:12] LABS: Glucose 180 mg/dL (74-106); Potassium 3.0 mmol/L (3.5-5.1)
[2024-10-31 04:13] LABS: Alanine Aminotransferase < 9 U/L (7-40); Albumin 2.3 g/dL (3.2-4.8); Calcium 7.4 mg/dL (8.7-10.4)
[2024-10-31] MEDS: POTASSIUM CHL 20MEQ/100ML 100 ML IV SCH (05:32)
--- NOTE | 2024-10-31 05:45 | DVH ---
CHEST RADIOGRAPH Indication: Pneumonia Technique: Single frontal view of the chest was obtained COMPARISON: XY CHEST XRAY 1 VIEW on DOS: 10/30/24, XY CHEST XRAY 1 VIEW on DOS: 10/29/24, XY CHEST XRAY 1 VIEW on DOS: 10/28/24, XY CHEST XRAY 1 VIEW on DOS: 10/27/24, XY CHEST PORTABLE on DOS: 10/26/24 FINDINGS: Lines and Tubes: Left central venous catheter present, unchanged in appearance and location. Lungs: Pulmonary edema, unchanged. Pleura: No effusion. No pneumothorax. Cardiomediastinal contours: Unremarkable Bones: Unremarkable IMPRESSION: Pulmonary edema, unchanged.
[2024-10-31 08:41] LABS: Base Excess 5.0 mmol/L (-2.0-3.0)
[2024-10-31] MEDS: MAGNESIUM SULFATE 1GM/100ML 100 ML IV ONE (09:47)
--- NOTE | 2024-10-31 11:04 | DVHPN2 ---
Progress Note Date Seen: Oct 31, 2024 Resident Creating Document: GAURI IGNACIO RESIDENT Medical Necessity Reason Pt with a Central, PICC or Fol: Yes The following are medically ne: Central Line, Kan Catheter Subjective Review of Systems The patient was seen and examined on the bedside. He is alert oriented X 0. Code status is DNR/DNI and arranging for hospice. Pending swallow evaluation and patient is downgraded to med [facility] [place] Objective vital signs Vital Sign Date Time Temp Pulse Resp B/P (MAP) Pulse Ox O2 Delivery O2 Flow Rate FiO2 10/31/24 10:37 96 22 140/91 100 3.0 32 10/31/24 06:00 Nasal Cannula* Hi-Flow Heated [place]+ 10/31/24 04:15 99.0 99.0 Total Intake and Output 10/30/24 10/30/24 10/31/24 15:00 23:00 07:00 Intake Total 890.999 ml 51 ml 114 ml Output Total 2500 ml 2800 ml Balance 890.999 ml -2449 ml -2686 ml medications Current Medications Medications Dose Ordered Sig/Dion Route Start Time Stop Time Status Last Admin Dose Admin Acetaminophen 650 mg Q6HP PRN [place] 10/10/24 10:00 10/10/24 15:18 650 MG Diagnostic Test (Pha) 1 strip Q6HR 10/11/24 00:00 10/31/24 05:54 1 STRIP Insulin Human Regular FOLLOW SLIDING SCALE Q6HR [place] 10/11/24 00:00 10/31/24 06:33 4 UNITS Dextrose 50 ml UD IV 10/10/24 22:00 Amino Acids 0 ml @ 0 mls/hr PER PHARMACY IV 10/10/24 19:00 UNV Pantoprazole Sodium 40 mg DAILY IV 10/21/24 08:30 10/31/24 09:40 40 MG Ondansetron HCl 4 mg Q4HPRN PRN IV 10/24/24 02:00 10/24/24 20:08 4 MG Enoxaparin Sodium 40 mg DAILY [place] 10/24/24 10:00 10/31/24 09:41 40 MG Aspirin 300 mg DAILY [place] 10/25/24 10:00 Acetylcysteine 100 mg Q6HR NEB 10/25/24 18:00 10/31/24 06:37 100 MG Albuterol 2.5 mg Q6HR NEB 10/25/24 18:00 10/31/24 06:37 2.5 MG Ipratropium [place] 0.5 mg Q6HR NEB 10/25/24 18:00 10/31/24 06:37 0.5 MG Haloperidol Lactate 5 mg Q8HP PRN IV 10/27/24 11:45 10/31/24 01:42 5 MG Vancomycin HCl 0 ml @ 0 mls/hr UD IV 10/27/24 20:00 Piperacillin Sod/ Tazobactam Sod 100 ml @ 25 mls/hr Q6H IV 10/28/24 12:00 10/31/24 05:36 25 MLS/HR Amino Acids/ Electrolytes/ Dextrose 1,000 ml @ 41 mls/hr DAILY@2200 IV 10/28/24 22:00 Cancel Bumetanide 12.5 mg/Miscellaneous 50 ml @ 2 mls/hr Q24H IV 10/28/24 17:15 10/31/24 03:07 2 MLS/HR Enteral Nutritional Formula 1,000 ml 30ML/HR GT 10/29/24 18:15 Potassium Chloride 100 ml @ 50 mls/hr Q2H IV 10/31/24 05:15 10/31/24 13:14 10/31/24 09:39 50 MLS/HR Examination Physical examination: General Appearance: Alert, Oriented X0. HEENT: Atraumatic, PERRLA, EOMI, Mucous membrane moist/pink Respiratory: Bilateral fine crackles Cardiovascular: Regular rate, Normal S1, Normal S2, No murmurs, no chest wall tenderness Abdominal: Normal bowel sounds, Soft, No tenderness, No hepatospenomegaly, No masses Extremities: No clubbing, No cyanosis, No edema, Normal pulses, bandage in rt foot Skin: No rashes, No breakdown, No significant lesion Neuro Strength at 5/5 X4 ext, Normal tone, Sensation intact, Cranial nerves 3-12 NL, Reflexes 2+ Psych/Mental Status: could not be assessed laboratory and microbiology Laboratory Tests 10/31/24 03:25 Test 10/31/24 03:25 Range/Units Serum Glucose 180 H 74-106 mg/dL Microbiology Date/Time Source Procedure Growth Status 10/28/24 18:40 Blood Blood Culture - Preliminary NO GROWTH AFTER 48 HOURS OF INCUBATION. Resulted 10/27/24 19:53 Sputum Gram Stain - Final Complete 10/27/24 19:53 Respiratory Culture - Final Presumptive Hellen albicans Complete 10/16/24 17:40 Catheter Tip Aerobic Culture - Final Complete 10/16/24 09:39 Penis Aerobic Culture - Final Methicillin Resistant S.aureus Presumptive Hellen tropicalis Complete 10/14/24 22:10 Voided Urine Urine Culture - Final Presumptive Hellen tropicalis Complete Labs and/or images reviewed: Labs reviewed by me, Image(s) reviewed by me Problem List/Assessment/Plan Problem List/Assessment/Plan Problem List/Assessment/Plan Acute kidney injury multifactorial hemodynamically mediated, FeNa < 1% Acute respiratory failure, patient intubated on ventilator/extubated Vancomycin nephrotoxicity Septic shock Acute CVA MRSA bacteremia Bacterial endocarditis, severe MR Lower extremity MRSA wound infection BPH status post TURP with indwelling Kan catheter d History of methamphetamine abuse Hypoalbuminemia multiple electrolyte abnormalities- hypokalemia, hypophosphatemia, hypoMg, hypernatremia improved new severe MR w/ flash pulmonary edema extubated,, on nasal cannula potassium replacement, Mg, Phos replacement on iv abx Discontinued Bumex drip, preferred loop diuretics as needed. We will sign off now and the patient is stable on Nephro standpoint Thank you so much for the opportunity to consult on your patient. In case of any questions or concerns please feel free to reach out. Plan discussed with . Plan discussed with: Other (MOM, RN) Dietary Evaluation Review Comments: 1) Add cardiac restriction to 60g CCHO diet 2) Initiate Glucerna qd. Encourage optimal PO intake 3) Follow-up with urology and surgery 4) Follow-up with psychosocial rehabilitation counselor r/t methamphetamine abuse 5) Continue to monitor I&O, labs, and skin integrity Expected Outcomes/Goals: 1) appetite and labs to improve 2) wound to improve 3) f/u in 3-5 days GAURI IGNACIO RESIDENT Oct 31, 2024 11:04
--- NOTE | 2024-10-31 13:19 | DVHPN2 ---
Progress Note - Dictate Date Seen: Oct 31, 2024 Medical Necessity Reason Pt with a Central, PICC or Fol: Yes The following are medically ne: Central Line, Kan Catheter Subjective No new complaints; stool for occult blood negative, no active GI bleeding He is extubated; somewhat altered requiring a sitter Chest x-ray imaging report reviewed. Moderate multifocal opacities. More pronounced in the right lower lung. Status post extubation on October 23, 2024. Currently on supplemental oxygen 10 L/min via Ox[employer]izer Multiple bowel movements recorded Currently patient does not have an NG-tube and has not been getting feedings since yesterday vital signs Vital Sign Date Time Temp Pulse Resp B/P (MAP) Pulse Ox O2 Delivery O2 Flow Rate FiO2 10/31/24 12:00 95 10/31/24 12:00 18 98 Nasal Cannula* 3 N/A Hi-Flow Heated NC+ 10/31/24 11:30 140/89 (106) 10/31/24 08:00 98.3 98.3 Total Intake and Output 10/30/24 10/30/24 10/31/24 15:00 23:00 07:00 Intake Total 890.999 ml 51 ml 114 ml Output Total 2500 ml 2800 ml Balance 890.999 ml -2449 ml -2686 ml medications Current Medications Medications Dose Ordered Sig/Dion Route Start Time Stop Time Status Last Admin Dose Admin Acetaminophen 650 mg Q6HP PRN W[place] 10/10/24 10:00 10/10/24 15:18 650 MG Diagnostic Test (Pha) 1 strip Q6HR 10/11/24 00:00 10/31/24 12:00 1 STRIP Insulin Human Regular FOLLOW SLIDING SCALE Q6HR SC 10/11/24 00:00 10/31/24 06:33 4 UNITS Dextrose 50 ml UD IV 10/10/24 22:00 Amino Acids 0 ml @ 0 mls/hr PER PHARMACY IV 10/10/24 19:00 UNV Pantoprazole Sodium 40 mg DAILY IV 10/21/24 08:30 10/31/24 09:40 40 MG Ondansetron HCl 4 mg Q4HPRN PRN IV 10/24/24 02:00 10/24/24 20:08 4 MG Enoxaparin Sodium 40 mg DAILY SC 10/24/24 10:00 10/31/24 09:41 40 MG Aspirin 300 mg DAILY WV 10/25/24 10:00 Acetylcysteine 100 mg Q6HR NEB 10/25/24 18:00 10/31/24 11:26 100 MG Albuterol 2.5 mg Q6HR NEB 10/25/24 18:00 10/31/24 11:25 2.5 MG Ipratropium Justin 0.5 mg Q6HR NEB 10/25/24 18:00 10/31/24 11:26 0.5 MG Haloperidol Lactate 5 mg Q8HP PRN IV 10/27/24 11:45 10/31/24 01:42 5 MG Vancomycin HCl 0 ml @ 0 mls/hr UD IV 10/27/24 20:00 Piperacillin Sod/ Tazobactam Sod 100 ml @ 25 mls/hr Q6H IV 10/28/24 12:00 10/31/24 13:16 25 MLS/HR Amino Acids/ Electrolytes/ Dextrose 1,000 ml @ 41 mls/hr DAILY@2200 IV 10/28/24 22:00 Cancel Bumetanide 12.5 mg/Miscellaneous 50 ml @ 2 mls/hr Q24H IV 10/28/24 17:15 10/31/24 03:07 2 MLS/HR Enteral Nutritional Formula 1,000 ml 30ML/HR GT 10/29/24 18:15 objective General: RASS -3, afebrile, mucosae are moist Cardiovascular: Normal S1 and S2. No murmurs, gallops or rubs Respiratory: Mechanically assisted ventilation, equal bilateral airway entree. Clear lung sounds on auscultation Abdomen: Soft, nontender, no organomegaly, sluggish bowel sounds MSK/skin: Mobilization of limbs cannot be evaluated. Skin is dry and warm. bilateral pedal edema +, ulceration in the bottom of the right great toe. Neurological: Orientation cannot be assessed. No apparent motor no sensitive deficits. Pupils are isocoric and reactive laboratory and microbiology Laboratory Tests 10/31/24 03:25 Test 10/31/24 03:25 Range/Units Serum Glucose 180 H 74-106 mg/dL Problems(with codes): (1) Psoas muscle abscess (2) Septic arthritis (3) Type 2 diabetes mellitus with hyperglycemia (4) Vomiting (5) DKA (diabetic ketoacidosis) Prognosis Plan IV TPN is discontinued Patient is awaiting swallow eval If the patient is able to swallow then we can insert NG tube and start NG tube feedings as recommended by nutritional consult We will re-evaluate next week for possible PEG tube placement if he fails swallow evaluation I will follow up patient with you Possible hospice evaluation as discussed with family Dietary Evaluation Review Comments: 1) Add cardiac restriction to 60g CCHO diet 2) Initiate Glucerna qd. Encourage optimal PO intake 3) Follow-up with urology and surgery 4) Follow-up with psychiatric social worker supervisor r/t methamphetamine abuse 5) Continue to monitor I&O, labs, and skin integrity Expected Outcomes/Goals: 1) appetite and labs to improve 2) wound to improve 3) f/u in 3-5 days Plan discussed with: Other (Dr Jimenez) ED BARAHONA MD Oct 31, 2024 13:19
--- NOTE | 2024-10-31 16:19 | DVH ---
EXAM: XY CHEST PORTABLE HISTORY: increased work of breathing, short of breath TECHNIQUE: 1 view of the chest COMPARISON: XY CHEST XRAY 1 VIEW on DOS: 10/31/24 FINDINGS/IMPRESSION: LUNGS: Medium to large left-sided pleural effusion, increased examination. Small right-sided pleural effusion. Low lung volumes, which cause crowding of the bronchovascular markings. Central pulmonary vascular congestion MEDIASTINUM: Unremarkable BONES: No acute osseous abnormality OTHER: None
--- NOTE | 2024-10-31 17:14 | DVHPNRES ---
Progress Note Date Seen: Oct 31, 2024 Resident Creating Document: ERNIE RONDON RESDIENT Medical Necessity Reason Pt with a Central, PICC or Fol: Yes The following are medically ne: Central Line, Kan Catheter Subjective Review of Systems Patient seen and examined at the bedside. Patient is more awake, and calm. Objective vital signs Vital Sign Date Time Temp Pulse Resp B/P (MAP) Pulse Ox O2 Delivery O2 Flow Rate FiO2 10/31/24 14:00 18 98 Nasal Cannula* 3 N/A Hi-Flow Heated NC+ 10/31/24 14:00 116 10/31/24 11:30 140/89 (106) 10/31/24 08:00 98.3 98.3 Total Intake and Output 10/30/24 10/30/24 10/31/24 15:00 23:00 07:00 Intake Total 890.999 ml 51 ml 116 ml Output Total 2500 ml 2800 ml Balance 890.999 ml -2449 ml -2684 ml medications Current Medications Medications Dose Ordered Sig/Dion Route Start Time Stop Time Status Last Admin Dose Admin Acetaminophen 650 mg Q6HP PRN NV 10/10/24 10:00 10/10/24 15:18 650 MG Diagnostic Test (Pha) 1 strip Q6HR 10/11/24 00:00 10/31/24 12:00 1 STRIP Insulin Human Regular FOLLOW SLIDING SCALE Q6HR SC 10/11/24 00:00 10/31/24 06:33 4 UNITS Dextrose 50 ml UD IV 10/10/24 22:00 Amino Acids 0 ml @ 0 mls/hr PER PHARMACY IV 10/10/24 19:00 UNV Pantoprazole Sodium 40 mg DAILY IV 10/21/24 08:30 10/31/24 09:40 40 MG Ondansetron HCl 4 mg Q4HPRN PRN IV 10/24/24 02:00 10/24/24 20:08 4 MG Enoxaparin Sodium 40 mg DAILY SC 10/24/24 10:00 10/31/24 09:41 40 MG Aspirin 300 mg DAILY NV 10/25/24 10:00 Acetylcysteine 100 mg Q6HR NEB 10/25/24 18:00 10/31/24 11:26 100 MG Albuterol 2.5 mg Q6HR NEB 10/25/24 18:00 10/31/24 11:25 2.5 MG Ipratropium [place] 0.5 mg Q6HR NEB 10/25/24 18:00 10/31/24 11:26 0.5 MG Haloperidol Lactate 5 mg Q8HP PRN IV 10/27/24 11:45 10/31/24 01:42 5 MG Vancomycin HCl 0 ml @ 0 mls/hr UD IV 10/27/24 20:00 Piperacillin Sod/ Tazobactam Sod 100 ml @ 25 mls/hr Q6H IV 10/28/24 12:00 10/31/24 13:16 25 MLS/HR Amino Acids/ Electrolytes/ Dextrose 1,000 ml @ 41 mls/hr DAILY@2200 IV 10/28/24 22:00 Cancel Enteral Nutritional Formula 1,000 ml 30ML/HR GT 10/29/24 18:15 Examination General Appearance: Alert, calm, in mild respiratory distress HEENT: Atraumatic, PERRLA, EOMI, Mucous membrane moist/pink Respiratory: Bilateral crackles Cardiovascular: Pansystolic murmur at mitral area Abdominal: Normal bowel sounds, Soft, No tenderness, No hepatospenomegaly, No masses Extremities: No clubbing, No cyanosis, No edema, Normal pulses, No tenderness/swelling Skin: A clean wound observed on the plantar surface of right toe, sutures intact with no sign of infection laboratory and microbiology Laboratory Tests 10/31/24 03:25 Test 10/31/24 03:25 Range/Units Serum Glucose 180 H 74-106 mg/dL Microbiology Date/Time Source Procedure Growth Status 10/28/24 18:40 Blood Blood Culture - Preliminary NO GROWTH AFTER 48 HOURS OF INCUBATION. Resulted 10/27/24 19:53 Sputum Gram Stain - Final Complete 10/27/24 19:53 Respiratory Culture - Final Presumptive Hellen albicans Complete 10/16/24 17:40 Catheter Tip Aerobic Culture - Final Complete 10/16/24 09:39 Penis Aerobic Culture - Final Methicillin Resistant S.aureus Presumptive Hellen tropicalis Complete 10/14/24 22:10 Voided Urine Urine Culture - Final Presumptive Hellen tropicalis Complete Labs and/or images reviewed: Labs reviewed by me Problem List/Assessment/Plan Problem List/Assessment/Plan 39-year-old male with past medical history of diabetes (uncontrolled), chronic diabetic ulcer, bipolar and methamphetamine use disorder, came to the hospital due to fever, generalized weakness, and abdominal pain admitted on 10/02/2024, with a primary diagnosis of infective endocarditis leading to septic emboli to the brain. Patient was extubated on 10/23/2024. NEURO: Acute metabolic encephalopathy secondary to ischemic stroke/sepsis Possible septic emboli due to persistent MRSA bacteremia History of Bipolar disorder Head CT on 10/05/2024 showed Acute left MCA territory infarct Head CT and neck CT angio on 10/06/2024 showed, No evidence of hemodynamically significant intracranial and cervical stenosis, occlusion, aneurysm or dissection Brain MRI on 10/15/2024 showed, Large area of diffusion restriction of the left posterior temporal lobe, left parietal lobe, small areas of punctate infarction along the right posterior frontal lobe to parietal lobe. Imaging pattern may be compatible with embolic phenomenon * Plan: Aspirin daily and Haldol p.r.n. for agitation CARDIOVASCULAR: Acute infective endocarditis of mitral valve Possible diastolic dysfunction/diastolic heart failure Severe mitral regurgitation, likely due to infective endocarditis Possible pulmonary edema due to MR * TIM 10/14/24 showed, Mitral Valve anterior leaflet has 0. 8 cm vegetation with stalk . 0.8 x 0.4 cm, no significant MR or abscess noted, LV size and function normal (EF 60%) * TTE on 10/06/2024, Left ventricular function is borderline at 45 to 50% anteroseptal hypokinesis, showed Mild aortic root enlargement. Valves appear to be structurally normal. * Multiple blood culture has been positive for MRSA, blood culture from 10/20/2024 shows no growth after 5 days * Previously given daptomycin (started on 10/14, stopped on 10/27) and ceftaroline (started on 10/19) * Echo 10/29, shows severe mitral regurgitation with a EF 60% * Plan: Bumex drip 0.5 mg/hour PULMONARY: Acute hypoxic respiratory failure, likely due to pneumonia Left-sided pleural effusion Possible aspiration pneumonia * Chest x-ray shows, diffuse multifocal bilateral pulmonary infiltration in all lung zones with suspected small left pleural effusion, worsening * Abdominopelvic CT on 10/16 showed small to moderate left and small right pleural effusion * Chest ultrasound on 10/21 showed small bilateral pleural effusions * Sputum culture from 10/10/2024 shows no growth * IR consulted for effusion, due to small size does not drain * Plan: On breathing treatment and acetyl cystine GASTROINTESTINAL: Possible proctitis Possible gastroenteritis Ascites * CT scan on 09/24/2024 showed, shows rectal wall thickening * CT abdominopelvic on 10/06 showed excess retained colorectal stool and moderate proximal mechanical small-bowel obstruction * CT on 10/16 showed, foci of air at the left psoas muscle with erosive changes at the left anterior sacroiliac joint. Findings are concerning for acute osteomyelitis/septic arthritis with left psoas muscle abscess. Recommend MRI with contrast or CT with contrast * CT in on 10/16 showed [id number] amount of ascites GENITOURINARY: JAYLEEN likely due to VMN/ vancomycin toxicity, resolved Complicated UTI, due to MRSA Urinary retention * History of possible prostatic abscess, status post surgery ENDOCRINE: Uncontrolled diabetes type 2 with HGB A1c 13.2 Diabetic foot ulcer, status post I&D on 10/15 * Scan on 10/07 showed, erosive changes involving the proximal and distal 1st phalanx with involvement of the IP joint * Deep Wound culture from 10/15 showed MRSA and Enterococcus faecalis sensitive to daptomycin * Plan: On sliding scale of insulin METABOLIC: Severe protein malnutrition Hypophosphatemia Hyperphosphatemia Hypomagnesemia Persistent hypokalemia Hypernatremia, resolved HEME: Severe anemia, normocytic normochromic, status post 2 PRBC transfusion * Transfused 1 pt of blood 10/29 * Plan: IV iron INFECTIOUS DISEASE: Persistent MRSA bacteremia Infective endocarditis of mitral valve Infected diabetic foot ulcer Complicated UTI Possible proctitis * Plan: Continue vancomycin (10/27) and Zosyn (10/27), repeat blood culture and sputum MUSCULOSKELETAL: Psoas muscle abscess Possible sacroiliitis * CT scan from 09/24/2024 showed, evidence of left sacroiliitis with gas and fluid extending into left pelvic muscles likely representing abscess. Suboptimal characterization due to lack of contrast. Bilateral inguinal adenopathy is likely reactive * Plan: Radiology planning for drainage once patients get more stabilized/calm DVT prophylax: Lovenox GI prophylaxis: Protonix Code status: Full code LINES/DRAINS/ACCESS: ETT: Intubated on 10/10, extubated on 10/23 IV access: Left IJ, placed on 10/16 Drips: Off from pressor and sedated Kan catheter: Placed on 10/02, replaced on 10/29 DISPOSITION: Med/surge Patient's status discussed with patient's mom at the bedside, updated of patient's current status, poor prognosis and goal of care. Patient's mom request, 1-2 days for to take decision. Critical care time spent more than 96 minutes, including patient care, chart review, and updating the family. Excluding any procedures. Case discussed with Dr. Brooks Plan discussed with: Patient My Orders My Orders Orders - ERNIE RONDON Procedure Category Date Status Time Chest Xray 1 View XY 10/31/24 Resulted 04:00 Abg W/ Co-Ox RT 10/31/24 Logged 04:00 * Swallow Request ST 10/31/24 Transmitted 10:34 Transfer Orders XFER 10/31/24 Transmitted 12:17 DNR CADE 10/31/24 In Process 12:17 Code Status CODE 10/31/24 Transmitted 12:17 * [employer] Specialist CONS 10/31/24 Transmitted Consult Dietary Evaluation Review Comments: 1) Add cardiac restriction to 60g CCHO diet 2) Initiate Glucerna qd. Encourage optimal PO intake 3) Follow-up with urology and surgery 4) Follow-up with secondary social studies teacher r/t methamphetamine abuse 5) Continue to monitor I&O, labs, and skin integrity Expected Outcomes/Goals: 1) appetite and labs to improve 2) wound to improve 3) f/u in 3-5 days ERNIE RONDON Oct 31, 2024 17:14
--- NOTE | 2024-10-31 19:48 | DVH ---
CHEST RADIOGRAPH REASON FOR EXAM: CONFIRM CENTRAL LINE PLACEMENT PLEASE COMPARISON: XY CHEST PORTABLE on DOS: 10/31/24, XY CHEST XRAY 1 VIEW on DOS: 10/31/24, XY CHEST XRAY 1 VIEW on DOS: 10/30/24, XY CHEST XRAY 1 VIEW on DOS: 10/29/24, XY CHEST XRAY 1 VIEW on DOS: 10/28/24 TECHNIQUE: One view of the chest is provided FINDINGS: There are low inspiratory volumes causing crowding and exaggeration of the pulmonary markin gs. The cardiomediastinal silhouette is stable. There is diffuse bilateral airspace disease. There is likely small bilateral pleural effusion. There is a left neck catheter with the tip in the expecte d area of the confluence of the left internal jugular vein and left subclavian vein. There is no pneu mothorax. No acute osseous abnormality is identified. IMPRESSION: Lung findings most consistent with pulmonary edema. No significant change. Left neck catheter tip projects over the expected area of the confluence of the left internal jugular vein and subclavian vein.
[2024-11-01] VITALS (16 sets, daily range): BP systolic 131–143; BP diastolic 85–99; PULSE 99–135; RESP 16–20; TEMP 97.7–100.3; O2SAT 91–100
[2024-11-01 06:39] LABS: Hematocrit 22.7 % (41.0-53.0); Hemoglobin 7.9 g/dL (13.5-17.5); Mean Corpuscular Hemoglobin 28.3 pg (28.0-32.0); Mean Corpuscular Volume 81.7 fL (80.0-100.0); Nucleated Red Blood Cells % 0.0 %
--- NOTE | 2024-11-01 13:13 | DVHPN2 ---
Subjective The patient is seen and examined at bedside. The patient passed swallow evaluation but cannot past clear liquid. No change overnight. Reviewed: Care Plan Changes from previous H/P or p: No Changes General: Per HPI Eyes: No Pain, No Vision change, No Conjunctivae inflammation, No Eyelid inflammation, No Other, No Redness ENT: No Ear pain, No Ear discharge, No Nose pain, No Nose discharge, No Nose congestion, No Mouth pain, No Mouth swelling, No Throat pain, No Throat swelling, No Other Cardiovascular: No Chest Pain, No Palpitations, No Orthopnea, No Paroxysmal Noc. Dyspnea, No Edema, No Lt Headedness, No Other Respiratory: No Cough, No Dry, No Shortness of breath, No SOB with excertion, No Wheezing, No Hemoptysis, No Pleuritic Pain, No Sputum, No Other Gastrointestinal: No Nausea, No Vomiting; Abdominal Pain; No Diarrhea, No Constipation, No Melena, No Hematochezia, No Other Genitourinary: No Dysuria, No Frequency, No Incontinence, No Hematuria, No Retention; Other (Kan catheter in place) Musculoskeletal: No other, No neck pain, No shoulder pain, No arm pain, No back pain, No hand pain, No leg pain, No foot pain Skin: No Rash, No Lesions, No Jaundice, No Bruising, No Other Objective Vitals Vital Signs Date Time Temp Pulse Resp B/P (MAP) Pulse Ox O2 Delivery O2 Flow Rate FiO2 11/01/24 12:59 97.7 113 20 143/95 (111) 94 97.7 11/01/24 06:58 Nasal Cannula* 2 28 Intake/Output Intake and Output 11/01/24 07:00 Intake Total 60 ml Output Total 3750 ml Balance -3690 ml Intake Oral 0 ml IV Total 60 ml Output Urine Total 2850 ml Stool Total 900 ml General Appearance: Alert HEENT: Atraumatic, PERRLA, EOMI, Mucous membr. moist/pink Neck: Supple Lungs: Clear to auscultation, Normal air movement Cardiovascular: Regular rate, Normal S1, Normal S2, No murmurs, Gallops, Rubs Abdomen: Normal bowel sounds, Soft, No tenderness Neuro: Cranial nerves 3-12 NL Psych/Mental Status: Mental status NL Medications Current Medications Medications Dose Ordered Sig/Dion Route Start Time Stop Time Status Last Admin Dose Admin Acetaminophen 650 mg Q6HP PRN MS 10/10/24 10:00 10/10/24 15:18 650 MG Diagnostic Test (Pha) 1 strip Q6HR 10/11/24 00:00 11/01/24 11:51 1 STRIP Insulin Human Regular FOLLOW SLIDING SCALE Q6HR SC 10/11/24 00:00 11/01/24 12:19 4 UNITS Dextrose 50 ml UD IV 10/10/24 22:00 Amino Acids 0 ml @ 0 mls/hr PER PHARMACY IV 10/10/24 19:00 UNV Pantoprazole Sodium 40 mg DAILY IV 10/21/24 08:30 11/01/24 11:21 40 MG Ondansetron HCl 4 mg Q4HPRN PRN IV 10/24/24 02:00 10/24/24 20:08 4 MG Enoxaparin Sodium 40 mg DAILY SC 10/24/24 10:00 11/01/24 10:46 40 MG Aspirin 300 mg DAILY MS 10/25/24 10:00 Acetylcysteine 100 mg Q6HR NEB 10/25/24 18:00 11/01/24 06:58 100 MG Albuterol 2.5 mg Q6HR NEB 10/25/24 18:00 11/01/24 06:58 2.5 MG Ipratropium [place] 0.5 mg Q6HR NEB 10/25/24 18:00 11/01/24 06:58 0.5 MG Haloperidol Lactate 5 mg Q8HP PRN IV 10/27/24 11:45 10/31/24 01:42 5 MG Vancomycin HCl 0 ml @ 0 mls/hr UD IV 10/27/24 20:00 Amino Acids/ Electrolytes/ Dextrose 1,000 ml @ 41 mls/hr DAILY@2200 IV 10/28/24 22:00 Cancel Enteral Nutritional Formula 1,000 ml 30ML/HR GT 10/29/24 18:15 Ceftriaxone Sodium/Dextrose 50 ml @ 50 mls/hr DAILY IV 10/31/24 18:00 11/01/24 11:22 50 MLS/HR Laboratory Results Laboratory Tests 10/31/24 03:25 11/01/24 04:53 Urinalysis Test 10/14/24 10:42 10/14/24 22:10 Urine Sodium 21 mmol/L (40-220) L Urine Color Light-orange (Yellow) Urine Clarity Ex.turbid (Clear) Urine pH 5.0 (5.0-9.0) Urine Specific [place] 1.017 (1.001-1.035) Urine Protein 1+ (Negative) H Urine Ketones Negative (Negative) Urine Blood 2+ /uL (Negative) H Urine Nitrite Negative (Negative) Urine Bilirubin Negative (Negative) Urine Urobilinogen Normal mg/dL (Negative) Urine Leukocyte Esterase 3+ /uL (Negative) Urine RBC 416 /hpf (0 - 3) Urine Microscopic WBC 354 /HPF (0-3) H Urine Squamous Epithelial Cells None seen /hpf (<5) Urine Bacteria Mod /hpf (None Seen) H Urine Hyaline Casts Many /lpf (0 - 2) Urine Mucus Few (None Seen) Urine Yeast with Hyphae Present /hpf Urine Yeast (Budding) Loaded /hpf (None Seen) Urine Creatinine 168.66 mg/dL (30.0-125.0) H Urine Protein/Creatinine Ratio 0.94 Urine Glucose Normal mg/dL (Normal) Urine Total Protein 158.7 mg/dL (1-14) H Microbiology Microbiology Date/Time Source Procedure Growth Status 10/28/24 18:40 Blood Blood Culture - Preliminary NO GROWTH AFTER 72 HOURS OF INCUBATION. Resulted 10/27/24 19:53 Sputum Gram Stain - Final Complete 10/27/24 19:53 Respiratory Culture - Final Presumptive Hellen albicans Complete 10/16/24 17:40 Catheter Tip Aerobic Culture - Final Complete 10/16/24 09:39 Penis Aerobic Culture - Final Methicillin Resistant S.aureus Presumptive Hellen tropicalis Complete 10/14/24 22:10 Voided Urine Urine Culture - Final Presumptive Hellen tropicalis Complete Labs and/or images reviewed: Labs reviewed by me Assessment/Plan Assessment/Plan 39-year-old male with past medical history of diabetes (uncontrolled), chronic diabetic ulcer, bipolar and methamphetamine use disorder, came to the hospital due to fever, generalized weakness, and abdominal pain admitted on 10/02/2024, with a primary diagnosis of infective endocarditis leading to septic emboli to the brain. Patient was extubated on 10/23/2024. NEURO: Acute metabolic encephalopathy secondary to ischemic stroke/sepsis Possible septic emboli due to persistent MRSA bacteremia History of Bipolar disorder Head CT on 10/05/2024 showed Acute left MCA territory infarct Head CT and neck CT angio on 10/06/2024 showed, No evidence of hemodynamically significant intracranial and cervical stenosis, occlusion, aneurysm or dissection Brain MRI on 10/15/2024 showed, Large area of diffusion restriction of the left posterior temporal lobe, left parietal lobe, small areas of punctate infarction along the right posterior frontal lobe to parietal lobe. Imaging pattern may be compatible with embolic phenomenon * Plan: Aspirin daily and Haldol p.r.n. for agitation CARDIOVASCULAR: Acute infective endocarditis of mitral valve Possible diastolic dysfunction/diastolic heart failure Severe mitral regurgitation, likely due to infective endocarditis Possible pulmonary edema due to MR * TIM 10/14/24 showed, Mitral Valve anterior leaflet has 0. 8 cm vegetation with stalk . 0.8 x 0.4 cm, no significant MR or abscess noted, LV size and function normal (EF 60%) * TTE on 10/06/2024, Left ventricular function is borderline at 45 to 50% anteroseptal hypokinesis, showed Mild aortic root enlargement. Valves appear to be structurally normal. * Multiple blood culture has been positive for MRSA, blood culture from 10/20/2024 shows no growth after 5 days * Previously given daptomycin (started on 10/14, stopped on 10/27) and ceftaroline (started on 10/19) * Echo 10/29, shows severe mitral regurgitation with a EF 60% * Plan: Bumex drip 0.5 mg/hour PULMONARY: Acute hypoxic respiratory failure, likely due to pneumonia Left-sided pleural effusion Possible aspiration pneumonia * Chest x-ray shows, diffuse multifocal bilateral pulmonary infiltration in all lung zones with suspected small left pleural effusion, worsening * Abdominopelvic CT on 10/16 showed small to moderate left and small right pleural effusion * Chest ultrasound on 10/21 showed small bilateral pleural effusions * Sputum culture from 10/10/2024 shows no growth * IR consulted for effusion, due to small size does not drain * Plan: On breathing treatment and acetyl cystine GASTROINTESTINAL: Possible proctitis Possible gastroenteritis Ascites * CT scan on 09/24/2024 showed, shows rectal wall thickening * CT abdominopelvic on 10/06 showed excess retained colorectal stool and moderate proximal mechanical small-bowel obstruction * CT on 10/16 showed, foci of air at the left psoas muscle with erosive changes at the left anterior sacroiliac joint. Findings are concerning for acute osteomyelitis/septic arthritis with left psoas muscle abscess. Recommend MRI with contrast or CT with contrast * CT in on 10/16 showed [id number] amount of ascites GENITOURINARY: JAYLEEN likely due to VMN/ vancomycin toxicity, resolved Complicated UTI, due to MRSA Urinary retention * History of possible prostatic abscess, status post surgery ENDOCRINE: Uncontrolled diabetes type 2 with HGB A1c 13.2 Diabetic foot ulcer, status post I&D on 10/15 * Scan on 10/07 showed, erosive changes involving the proximal and distal 1st phalanx with involvement of the IP joint * Deep Wound culture from 10/15 showed MRSA and Enterococcus faecalis sensitive to daptomycin * Plan: On sliding scale of insulin METABOLIC: Severe protein malnutrition Hypophosphatemia Hyperphosphatemia Hypomagnesemia Persistent hypokalemia Hypernatremia, resolved HEME: Severe anemia, normocytic normochromic, status post 2 PRBC transfusion * Transfused 1 pt of blood 10/29 * Plan: IV iron INFECTIOUS DISEASE: Persistent MRSA bacteremia Infective endocarditis of mitral valve Infected diabetic foot ulcer Complicated UTI Possible proctitis * Plan: Continue vancomycin (10/27) and Zosyn (10/27), repeat blood culture and sputum MUSCULOSKELETAL: Psoas muscle abscess Possible sacroiliitis * CT scan from 09/24/2024 showed, evidence of left sacroiliitis with gas and fluid extending into left pelvic muscles likely representing abscess. Suboptimal characterization due to lack of contrast. Bilateral inguinal adenopathy is likely reactive * Plan: Radiology planning for drainage once patients get more stabilized/calm DVT prophylax: Lovenox GI prophylaxis: Protonix Code status: Full code LINES/DRAINS/ACCESS: ETT: Intubated on 10/10, extubated on 10/23 IV access: Left IJ, placed on 10/16 Drips: Off from pressor and sedated Kan catheter: Placed on 10/02, replaced on 10/29 Continuing current management. Because the patient had trouble swallowing clear liquid. We will hold off on CT abdomen and pelvis and CT head and neck with oral and IV contrast because the patient risk of aspiration. We will continuing to monitor swallow eval and order when patient is able to swallow clear liquids safely without aspirate DISPOSITION: Med/surge This medical document was created using an electronic medical record system with M*M flurency direct computerized dictation system. Although this document has been carefully reviewed, there may still be some phonetic and typographical errors. These areas are purely typographical due to imperfections of the software programs, and do not reflect any compromise in the patient's medical care. Plan discussed with: Patient, Other (RN, Radiologist tech.) My Orders Orders - RUCHI IRVING MD Procedure Category Date Status Time Chest Portable XY 11/01/24 Logged 13:07 Date of Service: Nov 01, 2024 Billing Provider: RUCHI IRVING MD Common Visit Codes: [id number] INP/OBS CARE(HIGH) RUCHI IRVING MD Nov 01, 2024 13:13
--- NOTE | 2024-11-01 14:04 | DVHPN2 ---
Consult Progress Note Date Seen: Oct 31, 2024 Objective vital signs Vital Sign Date Time Temp Pulse Resp B/P (MAP) Pulse Ox O2 Delivery O2 Flow Rate FiO2 11/01/24 12:59 97.7 113 20 143/95 (111) 94 97.7 11/01/24 06:58 Nasal Cannula* 2 28 Total Intake and Output 10/31/24 10/31/24 11/01/24 15:00 23:00 07:00 Intake Total 10 ml 50 ml 0 ml Output Total 2700 ml 1050 ml Balance 10 ml -2650 ml -1050 ml medications Current Medications Medications Dose Ordered Sig/Dion Route Start Time Stop Time Status Last Admin Dose Admin Acetaminophen 650 mg Q6HP PRN PA 10/10/24 10:00 10/10/24 15:18 650 MG Diagnostic Test (Pha) 1 strip Q6HR 10/11/24 00:00 11/01/24 11:51 1 STRIP Insulin Human Regular FOLLOW SLIDING SCALE Q6HR SC 10/11/24 00:00 11/01/24 12:19 4 UNITS Dextrose 50 ml UD IV 10/10/24 22:00 Amino Acids 0 ml @ 0 mls/hr PER PHARMACY IV 10/10/24 19:00 UNV Pantoprazole Sodium 40 mg DAILY IV 10/21/24 08:30 11/01/24 11:21 40 MG Ondansetron HCl 4 mg Q4HPRN PRN IV 10/24/24 02:00 10/24/24 20:08 4 MG Enoxaparin Sodium 40 mg DAILY SC 10/24/24 10:00 11/01/24 10:46 40 MG Aspirin 300 mg DAILY PA 10/25/24 10:00 Acetylcysteine 100 mg Q6HR NEB 10/25/24 18:00 11/01/24 06:58 100 MG Albuterol 2.5 mg Q6HR NEB 10/25/24 18:00 11/01/24 06:58 2.5 MG Ipratropium [place] 0.5 mg Q6HR NEB 10/25/24 18:00 11/01/24 06:58 0.5 MG Haloperidol Lactate 5 mg Q8HP PRN IV 10/27/24 11:45 10/31/24 01:42 5 MG Vancomycin HCl 0 ml @ 0 mls/hr UD IV 10/27/24 20:00 Amino Acids/ Electrolytes/ Dextrose 1,000 ml @ 41 mls/hr DAILY@2200 IV 10/28/24 22:00 Cancel Enteral Nutritional Formula 1,000 ml 30ML/HR GT 10/29/24 18:15 Ceftriaxone Sodium/Dextrose 50 ml @ 50 mls/hr DAILY IV 10/31/24 18:00 11/01/24 11:22 50 MLS/HR laboratory and microbiology Laboratory Tests 11/01/24 04:53 10/31/24 03:25 Test 10/31/24 03:25 Range/Units Serum Glucose 180 H 74-106 mg/dL Problem List/Assessment/Plan Problem List/Assessment/Plan Problem List/Assessment/Plan Mr. Velazquez is a 39-year-old male with a complex medical history including insulin-dependent diabetes mellitus, GERD, bipolar disorder, schizophrenia, chronic diabetic ulcers, dyslipidemia, MRSA urinary infection, BPH, and methamphetamine abuse presented to [facility] on 10/02/2024 with generalized weakness, fever, and abdominal discomfort. He was intubated and chemically sedated for sepsis and persistent MRSA bacteremia, requiring low-dose vasopressor support. Imaging revealed a pelvic abscess and urinalysis suggested a UTI. Despite treatment, blood cultures remained positive for MRSA through 10/09. Cardiology was consulted for possible subacute endocarditis, with plans for TIM pending improvement in mental status. ECG showed sinus tachycardia, inflammatory markers were elevated, and infectious workup for HIV, hepatitis B/C, and syphilis was negative. Recurrent MRSA bacteremia with infective endocarditis with most likely source of intrapelvic collection with foci of air at the left psoas muscle with erosive changes at the left anterior sacroiliac joint concerning for acute osteomyelitis/septic arthritis with left psoas muscle abscess. Status post ceftriaxone, linezolid, metronidazole, vancomycin, was change to daptomycin and ceftaroline on respectively 10/12/2024 and 10/13/2024. -Patient on 10/27/2024 was started on vancomycin per pharmacy, Zosyn 3.7 q.8. Daptomycin and ceftaroline were discontinued. Assessment: #Persistent bacteremia with subacute endocarditis TIM found MR with 0.8 cm vegetations, improved. #CVA, left MCA territory, possible infectious cardioembolic source: MRI reveals a large area of restricted diffusion in the left posterior temporal and parietal lobes, along with small punctate infarcts in the right posterior frontal to parietal lobes, suggesting a pattern consistent with an embolic phenomenon noted on MRI. #Erosive changes at the left anterior sacroiliac joint concerning for acute osteomyelitis/septic arthritis with #Left psoas muscle abscess. #Small to moderate amount of ascites. #Small to moderate left and small right pleural effusions. #Cephalic vein thrombus; ? infectious thromboembolism #Meningitis? Possible, HSV encephalitis possible?, unable to rule out vs thromboembolic stroke. #Abdomen-pelvic abscess: Evidence of left sacroiliitis with gas and fluid extending into left pelvic muscles likely representing abscess #UTI due to possible hematogenous seeding of bacteremia #MRSA Aspiration Pneumonia, Trace bilateral pleural effusions with adjacent atelectasis and patchy posterior bibasilar pulmonary infiltrate with MRSA #Methamphetamine abuse, unknown status of IV drug abuse #Mild aortic root enlargement. Mild TR, No pericardial effusion masses or vegetations noted on TTE #Uncontrolled DM with HbA1C 13.2 #STD panel ruled out. #Watery diarrhea, 5 times, low suspicion of d c diff. Abdominal exam unremarkable. #Mild fever 100 is lower on suspicion of infectious causes as off of sedation and agitation can be contributory. Plan: # Patient is planning for hospice, and antibiotics are not a part of hospice, consider stopping antibiotics # Continue antibiotics for now # CT abdomen and pelvis with contrast to evaluate prosthesis and iliopsoas muscle # CT head with and without contrast # Blood culture X 2 #If oxygen requirement increases, consider workup for aspiration pneumonia/pneumonitis. #Significant improvement in overall clinical picture, MRI still pending, If patient's renal function improved might consider CT with contrast with cautions and appropriate hydration. # continue vancomycin and zosyn # continue daily chest x-rays. #continue monitoring respiratory status, improve hypoxia for possible head CT and abdomen/pelvis CT #Still source control remains a pivotal factor, looking for further input from Surgical teams. #As high risk substance abuse IV antibiotic will likely need SNF placement when patient is clinically stable for discharge. #Continue ICU level care with close follow up by Primary Team. Discussed with Dr. Solano. Infectious disease team will follow up. Plan discussed with: Patient Plan discussed with: Patient Dietary Evaluation Review Comments: 1) Add cardiac restriction to 60g CCHO diet 2) Initiate Glucerna qd. Encourage optimal PO intake 3) Follow-up with urology and surgery 4) Follow-up with social media developer r/t methamphetamine abuse 5) Continue to monitor I&O, labs, and skin integrity Expected Outcomes/Goals: 1) appetite and labs to improve 2) wound to improve 3) f/u in 3-5 days TAO KIRK RESIDENT Nov 01, 2024 13:57
--- NOTE | 2024-11-01 14:22 | DVH ---
CHEST RADIOGRAPH Indication: Patient Removed Central Line Left IJ Technique: Single frontal view of the chest was obtained COMPARISON: XY CHEST PORTABLE on DOS: 10/31/24, XY CHEST PORTABLE on DOS: 10/31/24, XY CHEST XRAY 1 VIE W on DOS: 10/31/24, XY CHEST XRAY 1 VIEW on DOS: 10/30/24, XY CHEST XRAY 1 VIEW on DOS: 10/29/24 FINDINGS: Lines and Tubes: None Lungs: Clear Pleura: Small bilateral pleural effusions, unchanged. No pneumothorax. Cardiomediastinal contours: Unremarkable Bones: Unremarkable Pulmonary vascular congestion, unchanged. IMPRESSION: No significant change compared to prior exam allowing for differences in technique.
--- NOTE | 2024-11-01 16:05 | DVHPN2 ---
Progress Note Date Seen: Nov 01, 2024 Medical Necessity Reason Pt with a Central, PICC or Fol: Yes The following are medically ne: Central Line, Kan Catheter Objective vital signs Vital Sign Date Time Temp Pulse Resp B/P (MAP) Pulse Ox O2 Delivery O2 Flow Rate FiO2 11/01/24 14:29 102 18 98 11/01/24 14:19 Room Air 11/01/24 14:19 0 21 11/01/24 12:59 97.7 143/95 (111) 97.7 Total Intake and Output 10/31/24 10/31/24 11/01/24 15:00 23:00 07:00 Intake Total 10 ml 50 ml 0 ml Output Total 2700 ml 1050 ml Balance 10 ml -2650 ml -1050 ml medications Current Medications Medications Dose Ordered Sig/Dion Route Start Time Stop Time Status Last Admin Dose Admin Acetaminophen 650 mg Q6HP PRN [place] 10/10/24 10:00 10/10/24 15:18 650 MG Diagnostic Test (Pha) 1 strip Q6HR 10/11/24 00:00 11/01/24 11:51 1 STRIP Insulin Human Regular FOLLOW SLIDING SCALE Q6HR SC 10/11/24 00:00 11/01/24 12:19 4 UNITS Dextrose 50 ml UD IV 10/10/24 22:00 Amino Acids 0 ml @ 0 mls/hr PER PHARMACY IV 10/10/24 19:00 UNV Pantoprazole Sodium 40 mg DAILY IV 10/21/24 08:30 11/01/24 11:21 40 MG Ondansetron HCl 4 mg Q4HPRN PRN IV 10/24/24 02:00 10/24/24 20:08 4 MG Enoxaparin Sodium 40 mg DAILY SC 10/24/24 10:00 11/01/24 10:46 40 MG Aspirin 300 mg DAILY [place] 10/25/24 10:00 Acetylcysteine 100 mg Q6HR NEB 10/25/24 18:00 11/01/24 14:19 100 MG Albuterol 2.5 mg Q6HR NEB 10/25/24 18:00 11/01/24 14:15 2.5 MG Ipratropium [place] 0.5 mg Q6HR NEB 10/25/24 18:00 11/01/24 14:15 0.5 MG Haloperidol Lactate 5 mg Q8HP PRN IV 10/27/24 11:45 10/31/24 01:42 5 MG Vancomycin HCl 0 ml @ 0 mls/hr UD IV 10/27/24 20:00 Amino Acids/ Electrolytes/ Dextrose 1,000 ml @ 41 mls/hr DAILY@2200 IV 10/28/24 22:00 Cancel Enteral Nutritional Formula 1,000 ml 30ML/HR GT 10/29/24 18:15 Ceftriaxone Sodium/Dextrose 50 ml @ 50 mls/hr DAILY IV 10/31/24 18:00 11/01/24 11:22 50 MLS/HR laboratory and microbiology Laboratory Tests 11/01/24 04:53 10/31/24 03:25 Test 10/31/24 03:25 Range/Units Serum Glucose 180 H 74-106 mg/dL Microbiology Date/Time Source Procedure Growth Status 10/28/24 18:40 Blood Blood Culture - Preliminary NO GROWTH AFTER 72 HOURS OF INCUBATION. Resulted 10/27/24 19:53 Sputum Gram Stain - Final Complete 10/27/24 19:53 Respiratory Culture - Final Presumptive Hellen albicans Complete 10/16/24 17:40 Catheter Tip Aerobic Culture - Final Complete 10/16/24 09:39 Penis Aerobic Culture - Final Methicillin Resistant S.aureus Presumptive Hellen tropicalis Complete 10/14/24 22:10 Voided Urine Urine Culture - Final Presumptive Hellen tropicalis Complete Dietary Evaluation Review Comments: 1) Add cardiac restriction to 60g CCHO diet 2) Initiate Glucerna qd. Encourage optimal PO intake 3) Follow-up with urology and surgery 4) Follow-up with adoption social worker r/t methamphetamine abuse 5) Continue to monitor I&O, labs, and skin integrity Expected Outcomes/Goals: 1) appetite and labs to improve 2) wound to improve 3) f/u in 3-5 days JOSE CHO Nov 01, 2024 16:05
[2024-11-01] MEDS: VANCOMYCIN 1GM/250ML KIT 250 ML IV ONE (16:11)
[2024-11-02] VITALS (16 sets, daily range): BP systolic 136–148; BP diastolic 90–98; PULSE 81–110; RESP 14–18; TEMP 98.4–100.8; O2SAT 91–100
[2024-11-02 08:28] LABS: Chloride 103 mmol/L (98-107); Potassium 3.6 mmol/L (3.5-5.1); Sodium 141 mmol/L (136-145)
[2024-11-02 08:29] LABS: Anion Gap 7 (5-15); Carbon Dioxide 31 mmol/L (20-31)
[2024-11-02 08:30] LABS: Hematocrit 26.9 % (41.0-53.0); Hemoglobin 9.0 g/dL (13.5-17.5); Mean Corpuscular Hemoglobin 27.7 pg (28.0-32.0); Mean Corpuscular Volume 82.7 fL (80.0-100.0); Nucleated Red Blood Cells % 0.1 %
[2024-11-02 08:34] LABS: BUN/Creatinine Ratio 10.2 (10.0-20.0); Blood Urea Nitrogen 11 mg/dL (9-23)
[2024-11-02 08:45] LABS: Calcium 7.8 mg/dL (8.7-10.4); Glucose 149 mg/dL (74-106)
--- NOTE | 2024-11-02 14:19 | DVHPN2 ---
Subjective The patient is seen and examined at bedside. The patient passed swallow evaluation but cannot passed clear liquid. No change overnight. Patient has fever 100.9 today. Reviewed: Care Plan Changes from previous H/P or p: No Changes General: Per HPI Eyes: No Pain, No Vision change, No Conjunctivae inflammation, No Eyelid inflammation, No Other, No Redness ENT: No Ear pain, No Ear discharge, No Nose pain, No Nose discharge, No Nose congestion, No Mouth pain, No Mouth swelling, No Throat pain, No Throat swelling, No Other Cardiovascular: No Chest Pain, No Palpitations, No Orthopnea, No Paroxysmal Noc. Dyspnea, No Edema, No Lt Headedness, No Other Respiratory: No Cough, No Dry, No Shortness of breath, No SOB with excertion, No Wheezing, No Hemoptysis, No Pleuritic Pain, No Sputum, No Other Gastrointestinal: No Nausea, No Vomiting; Abdominal Pain; No Diarrhea, No Constipation, No Melena, No Hematochezia, No Other Genitourinary: No Dysuria, No Frequency, No Incontinence, No Hematuria, No Retention; Other (Kan catheter in place) Musculoskeletal: No other, No neck pain, No shoulder pain, No arm pain, No back pain, No hand pain, No leg pain, No foot pain Skin: No Rash, No Lesions, No Jaundice, No Bruising, No Other Objective Vitals Vital Signs Date Time Temp Pulse Resp B/P (MAP) Pulse Ox O2 Delivery O2 Flow Rate FiO2 11/02/24 11:59 81 16 100 11/02/24 08:58 98.6 147/98 (114) 98.6 11/02/24 08:00 Nasal Cannula* 3 32 Intake/Output Intake and Output 11/02/24 07:00 Intake Total 820 ml Output Total 1325 ml Balance -505 ml Intake Oral 520 ml IV Total 300 ml Output Urine Total 1325 ml General Appearance: Alert HEENT: Atraumatic, PERRLA, EOMI, Mucous membr. moist/pink Neck: Supple Lungs: Clear to auscultation, Normal air movement Cardiovascular: Regular rate, Normal S1, Normal S2, No murmurs, Gallops, Rubs Abdomen: Normal bowel sounds, Soft, No tenderness Neuro: Cranial nerves 3-12 NL Psych/Mental Status: Mental status NL Medications Current Medications Medications Dose Ordered Sig/Dion Route Start Time Stop Time Status Last Admin Dose Admin Acetaminophen 650 mg Q6HP PRN MA 10/10/24 10:00 10/10/24 15:18 650 MG Diagnostic Test (Pha) 1 strip Q6HR 10/11/24 00:00 11/02/24 11:53 1 STRIP Insulin Human Regular FOLLOW SLIDING SCALE Q6HR SC 10/11/24 00:00 11/02/24 12:13 8 UNITS Dextrose 50 ml UD IV 10/10/24 22:00 Amino Acids 0 ml @ 0 mls/hr PER PHARMACY IV 10/10/24 19:00 UNV Pantoprazole Sodium 40 mg DAILY IV 10/21/24 08:30 11/02/24 10:01 40 MG Ondansetron HCl 4 mg Q4HPRN PRN IV 10/24/24 02:00 10/24/24 20:08 4 MG Enoxaparin Sodium 40 mg DAILY SC 10/24/24 10:00 11/02/24 10:02 40 MG Aspirin 300 mg DAILY [place] 10/25/24 10:00 Albuterol 2.5 mg Q6HR NEB 10/25/24 18:00 11/02/24 11:49 2.5 MG Ipratropium [place] 0.5 mg Q6HR NEB 10/25/24 18:00 11/02/24 11:49 0.5 MG Haloperidol Lactate 5 mg Q8HP PRN IV 10/27/24 11:45 10/31/24 01:42 5 MG Vancomycin HCl 0 ml @ 0 mls/hr UD IV 10/27/24 20:00 Amino Acids/ Electrolytes/ Dextrose 1,000 ml @ 41 mls/hr DAILY@2200 IV 10/28/24 22:00 Cancel Enteral Nutritional Formula 1,000 ml 30ML/HR GT 10/29/24 18:15 Ceftriaxone Sodium/Dextrose 50 ml @ 50 mls/hr DAILY IV 10/31/24 18:00 11/02/24 10:02 50 MLS/HR Laboratory Results Laboratory Tests 11/02/24 05:24 Chemistry Test 11/02/24 05:24 Calcium Level 7.8 mg/dL (8.7-10.4) L Urinalysis Test 10/14/24 10:42 10/14/24 22:10 Urine Sodium 21 mmol/L (40-220) L Urine Color Light-orange (Yellow) Urine Clarity Ex.turbid (Clear) Urine pH 5.0 (5.0-9.0) Urine Specific [place] 1.017 (1.001-1.035) Urine Protein 1+ (Negative) H Urine Ketones Negative (Negative) Urine Blood 2+ /uL (Negative) H Urine Nitrite Negative (Negative) Urine Bilirubin Negative (Negative) Urine Urobilinogen Normal mg/dL (Negative) Urine Leukocyte Esterase 3+ /uL (Negative) Urine RBC 416 /hpf (0 - 3) Urine Microscopic WBC 354 /HPF (0-3) H Urine Squamous Epithelial Cells None seen /hpf (<5) Urine Bacteria Mod /hpf (None Seen) H Urine Hyaline Casts Many /lpf (0 - 2) Urine Mucus Few (None Seen) Urine Yeast with Hyphae Present /hpf Urine Yeast (Budding) Loaded /hpf (None Seen) Urine Creatinine 168.66 mg/dL (30.0-125.0) H Urine Protein/Creatinine Ratio 0.94 Urine Glucose Normal mg/dL (Normal) Urine Total Protein 158.7 mg/dL (1-14) H Microbiology Microbiology Date/Time Source Procedure Growth Status 10/28/24 18:40 Blood Blood Culture - Preliminary NO GROWTH AFTER 72 HOURS OF INCUBATION. Resulted 10/27/24 19:53 Sputum Gram Stain - Final Complete 10/27/24 19:53 Respiratory Culture - Final Presumptive Hellen albicans Complete 10/16/24 17:40 Catheter Tip Aerobic Culture - Final Complete 10/16/24 09:39 Penis Aerobic Culture - Final Methicillin Resistant S.aureus Presumptive Hellen tropicalis Complete 10/14/24 22:10 Voided Urine Urine Culture - Final Presumptive Hellen tropicalis Complete Labs and/or images reviewed: Labs reviewed by me Assessment/Plan Assessment/Plan 39-year-old male with past medical history of diabetes (uncontrolled), chronic diabetic ulcer, bipolar and methamphetamine use disorder, came to the hospital due to fever, generalized weakness, and abdominal pain admitted on 10/02/2024, with a primary diagnosis of infective endocarditis leading to septic emboli to the brain. Patient was extubated on 10/23/2024. NEURO: Acute metabolic encephalopathy secondary to ischemic stroke/sepsis Possible septic emboli due to persistent MRSA bacteremia History of Bipolar disorder Head CT on 10/05/2024 showed Acute left MCA territory infarct Head CT and neck CT angio on 10/06/2024 showed, No evidence of hemodynamically significant intracranial and cervical stenosis, occlusion, aneurysm or dissection Brain MRI on 10/15/2024 showed, Large area of diffusion restriction of the left posterior temporal lobe, left parietal lobe, small areas of punctate infarction along the right posterior frontal lobe to parietal lobe. Imaging pattern may be compatible with embolic phenomenon * Plan: Aspirin daily and Haldol p.r.n. for agitation CARDIOVASCULAR: Acute infective endocarditis of mitral valve Possible diastolic dysfunction/diastolic heart failure Severe mitral regurgitation, likely due to infective endocarditis Possible pulmonary edema due to MR * TIM 10/14/24 showed, Mitral Valve anterior leaflet has 0. 8 cm vegetation with stalk . 0.8 x 0.4 cm, no significant MR or abscess noted, LV size and function normal (EF 60%) * TTE on 10/06/2024, Left ventricular function is borderline at 45 to 50% anteroseptal hypokinesis, showed Mild aortic root enlargement. Valves appear to be structurally normal. * Multiple blood culture has been positive for MRSA, blood culture from 10/20/2024 shows no growth after 5 days * Previously given daptomycin (started on 10/14, stopped on 10/27) and ceftaroline (started on 10/19) * Echo 10/29, shows severe mitral regurgitation with a EF 60% * Plan: Bumex drip 0.5 mg/hour PULMONARY: Acute hypoxic respiratory failure, likely due to pneumonia Left-sided pleural effusion Possible aspiration pneumonia * Chest x-ray shows, diffuse multifocal bilateral pulmonary infiltration in all lung zones with suspected small left pleural effusion, worsening * Abdominopelvic CT on 10/16 showed small to moderate left and small right pleural effusion * Chest ultrasound on 10/21 showed small bilateral pleural effusions * Sputum culture from 10/10/2024 shows no growth * IR consulted for effusion, due to small size does not drain * Plan: On breathing treatment and acetyl cystine GASTROINTESTINAL: Possible proctitis Possible gastroenteritis Ascites * CT scan on 09/24/2024 showed, shows rectal wall thickening * CT abdominopelvic on 10/06 showed excess retained colorectal stool and moderate proximal mechanical small-bowel obstruction * CT on 10/16 showed, foci of air at the left psoas muscle with erosive changes at the left anterior sacroiliac joint. Findings are concerning for acute osteomyelitis/septic arthritis with left psoas muscle abscess. Recommend MRI with contrast or CT with contrast * CT in on 10/16 showed [id number] amount of ascites GENITOURINARY: JAYLEEN likely due to VMN/ vancomycin toxicity, resolved Complicated UTI, due to MRSA Urinary retention * History of possible prostatic abscess, status post surgery ENDOCRINE: Uncontrolled diabetes type 2 with HGB A1c 13.2 Diabetic foot ulcer, status post I&D on 10/15 * Scan on 10/07 showed, erosive changes involving the proximal and distal 1st phalanx with involvement of the IP joint * Deep Wound culture from 10/15 showed MRSA and Enterococcus faecalis sensitive to daptomycin * Plan: On sliding scale of insulin METABOLIC: Severe protein malnutrition Hypophosphatemia Hyperphosphatemia Hypomagnesemia Persistent hypokalemia Hypernatremia, resolved HEME: Severe anemia, normocytic normochromic, status post 2 PRBC transfusion * Transfused 1 pt of blood 10/29 * Plan: IV iron INFECTIOUS DISEASE: Persistent MRSA bacteremia Infective endocarditis of mitral valve Infected diabetic foot ulcer Complicated UTI Possible proctitis * Plan: Continue vancomycin (10/27) and Zosyn (10/27), repeat blood culture and sputum MUSCULOSKELETAL: Psoas muscle abscess Possible sacroiliitis * CT scan from 09/24/2024 showed, evidence of left sacroiliitis with gas and fluid extending into left pelvic muscles likely representing abscess. Suboptimal characterization due to lack of contrast. Bilateral inguinal adenopathy is likely reactive * Plan: Radiology planning for drainage once patients get more stabilized/calm DVT prophylax: Lovenox GI prophylaxis: Protonix Code status: Full code LINES/DRAINS/ACCESS: ETT: Intubated on 10/10, extubated on 10/23 IV access: Left IJ, placed on 10/16 Drips: Off from pressor and sedated Kan catheter: Placed on 10/02, replaced on 10/29 11/01: Continuing current management. Because the patient had trouble swallowing clear liquid. We will hold off on CT abdomen and pelvis and CT head and neck with oral and IV contrast because the patient risk of aspiration. We will continuing to monitor swallow eval and order when patient is able to swallow clear liquids safely without aspirate 11/02: Patient has rectal tube and also has fever. Will order IV tylenol PRN for temp greater than 100.5 BC x 2 , Urine culture. Continue Abx. DISPOSITION: Med/surge This medical document was created using an electronic medical record system with [employer] direct computerized dictation system. Although this document has been carefully reviewed, there may still be some phonetic and typographical errors. These areas are purely typographical due to imperfections of the software programs, and do not reflect any compromise in the patient's medical care. Plan discussed with: Other (Rn) My Orders Orders - RUCHI IRVING MD Procedure Category Date Status Time Complete Blood Count LAB 11/03/24 Verified 04:00 Basic Metabolic Panel LAB 11/03/24 Verified 04:00 Date of Service: Nov 02, 2024 Billing Provider: RUCHI IRVING MD Common Visit Codes: [id number] INP/OBS CARE(HIGH) RUCHI IRVING MD Nov 02, 2024 14:19
[2024-11-02] MEDS ORDERED: ACETAMINOPHEN IV 1000 MG/100ML (10MG/ML) IV PRN ×2 (15:30→16:00)
[2024-11-02] MEDS: ALBUTEROL SULF 2.5 MG/0.5ML(0.5%) NEB SOLN NEB SCH (17:59)
[2024-11-02] MEDS: IPRATROPIUM BROM 0.5 MG/2.5ML INH SOL NEB SCH (18:00)
--- NOTE | 2024-11-02 18:24 | DVHPN2 ---
Consult Progress Note Objective vital signs Vital Sign Date Time Temp Pulse Resp B/P (MAP) Pulse Ox O2 Delivery O2 Flow Rate FiO2 11/02/24 17:57 101 18 97 11/02/24 17:55 Room Air* 0 21 11/02/24 17:00 99.2 138/90 (106) 99.2 Total Intake and Output 11/01/24 11/01/24 11/02/24 15:00 23:00 07:00 Intake Total 50 ml 670 ml 100 ml Output Total 825 ml 500 ml Balance 50 ml -155 ml -400 ml medications Current Medications Medications Dose Ordered Sig/Dion Route Start Time Stop Time Status Last Admin Dose Admin Diagnostic Test (Pha) 1 strip Q6HR 10/11/24 00:00 11/02/24 17:27 1 STRIP Insulin Human Regular FOLLOW SLIDING SCALE Q6HR SC 10/11/24 00:00 11/02/24 17:33 2 UNITS Dextrose 50 ml UD IV 10/10/24 22:00 Amino Acids 0 ml @ 0 mls/hr PER PHARMACY IV 10/10/24 19:00 UNV Pantoprazole Sodium 40 mg DAILY IV 10/21/24 08:30 11/02/24 10:01 40 MG Ondansetron HCl 4 mg Q4HPRN PRN IV 10/24/24 02:00 10/24/24 20:08 4 MG Enoxaparin Sodium 40 mg DAILY SC 10/24/24 10:00 11/02/24 10:02 40 MG Aspirin 300 mg DAILY [place] 10/25/24 10:00 Haloperidol Lactate 5 mg Q8HP PRN IV 10/27/24 11:45 10/31/24 01:42 5 MG Vancomycin HCl 0 ml @ 0 mls/hr UD IV 10/27/24 20:00 Amino Acids/ Electrolytes/ Dextrose 1,000 ml @ 41 mls/hr DAILY@2200 IV 10/28/24 22:00 Cancel Enteral Nutritional Formula 1,000 ml 30ML/HR GT 10/29/24 18:15 Ceftriaxone Sodium/Dextrose 50 ml @ 50 mls/hr DAILY IV 10/31/24 18:00 11/02/24 10:02 50 MLS/HR Acetaminophen 500 mg Q12H PRN IV 11/02/24 16:00 11/09/24 16:00 Vancomycin HCl 250 ml @ 200 mls/hr Q12H IV 11/02/24 20:00 Albuterol 2.5 mg Q6HWA [facility] 11/02/24 18:00 11/02/24 17:59 2.5 MG Ipratropium [place] 0.5 mg Q6HWA [facility] 11/02/24 18:00 11/02/24 18:00 0.5 MG laboratory and microbiology Laboratory Tests 11/02/24 05:24 Test 11/02/24 05:24 Range/Units Serum Glucose 149 H 74-106 mg/dL Dietary Evaluation Review Comments: 1) Add cardiac restriction to 60g CCHO diet 2) Initiate Glucerna qd. Encourage optimal PO intake 3) Follow-up with urology and surgery 4) Follow-up with social worker health services r/t methamphetamine abuse 5) Continue to monitor I&O, labs, and skin integrity Expected Outcomes/Goals: 1) appetite and labs to improve 2) wound to improve 3) f/u in 3-5 days ERIN BERRY MD Nov 02, 2024 18:24
--- NOTE | 2024-11-02 18:24 | DVHPN2 ---
Consult Progress Note Objective vital signs Vital Sign Date Time Temp Pulse Resp B/P (MAP) Pulse Ox O2 Delivery O2 Flow Rate FiO2 11/02/24 17:57 101 18 97 11/02/24 17:55 Room Air* 0 21 11/02/24 17:00 99.2 138/90 (106) 99.2 Total Intake and Output 11/01/24 11/01/24 11/02/24 15:00 23:00 07:00 Intake Total 50 ml 670 ml 100 ml Output Total 825 ml 500 ml Balance 50 ml -155 ml -400 ml medications Current Medications Medications Dose Ordered Sig/Dion Route Start Time Stop Time Status Last Admin Dose Admin Diagnostic Test (Pha) 1 strip Q6HR 10/11/24 00:00 11/02/24 17:27 1 STRIP Insulin Human Regular FOLLOW SLIDING SCALE Q6HR SC 10/11/24 00:00 11/02/24 17:33 2 UNITS Dextrose 50 ml UD IV 10/10/24 22:00 Amino Acids 0 ml @ 0 mls/hr PER PHARMACY IV 10/10/24 19:00 UNV Pantoprazole Sodium 40 mg DAILY IV 10/21/24 08:30 11/02/24 10:01 40 MG Ondansetron HCl 4 mg Q4HPRN PRN IV 10/24/24 02:00 10/24/24 20:08 4 MG Enoxaparin Sodium 40 mg DAILY SC 10/24/24 10:00 11/02/24 10:02 40 MG Aspirin 300 mg DAILY [place] 10/25/24 10:00 Haloperidol Lactate 5 mg Q8HP PRN IV 10/27/24 11:45 10/31/24 01:42 5 MG Vancomycin HCl 0 ml @ 0 mls/hr UD IV 10/27/24 20:00 Amino Acids/ Electrolytes/ Dextrose 1,000 ml @ 41 mls/hr DAILY@2200 IV 10/28/24 22:00 Cancel Enteral Nutritional Formula 1,000 ml 30ML/HR GT 10/29/24 18:15 Ceftriaxone Sodium/Dextrose 50 ml @ 50 mls/hr DAILY IV 10/31/24 18:00 11/02/24 10:02 50 MLS/HR Acetaminophen 500 mg Q12H PRN IV 11/02/24 16:00 11/09/24 16:00 Vancomycin HCl 250 ml @ 200 mls/hr Q12H IV 11/02/24 20:00 Albuterol 2.5 mg Q6HWA [facility] 11/02/24 18:00 11/02/24 17:59 2.5 MG Ipratropium [place] 0.5 mg Q6HWA [facility] 11/02/24 18:00 11/02/24 18:00 0.5 MG laboratory and microbiology Laboratory Tests 11/02/24 05:24 Test 11/02/24 05:24 Range/Units Serum Glucose 149 H 74-106 mg/dL Dietary Evaluation Review Comments: 1) Add cardiac restriction to 60g CCHO diet 2) Initiate Glucerna qd. Encourage optimal PO intake 3) Follow-up with urology and surgery 4) Follow-up with nursing home social worker r/t methamphetamine abuse 5) Continue to monitor I&O, labs, and skin integrity Expected Outcomes/Goals: 1) appetite and labs to improve 2) wound to improve 3) f/u in 3-5 days ERIN BERRY MD Nov 02, 2024 18:24
[2024-11-02] MEDS: VANCOMYCIN 1GM/250ML KIT 250 ML IV SCH (20:16)
[2024-11-03] VITALS (14 sets, daily range): BP systolic 127–139; BP diastolic 81–93; PULSE 97–107; RESP 16–20; TEMP 97.7–98.6; O2SAT 93–100
[2024-11-03 06:32] LABS: Hematocrit 23.7 % (41.0-53.0); Hemoglobin 8.1 g/dL (13.5-17.5); Mean Corpuscular Hemoglobin 28.2 pg (28.0-32.0); Mean Corpuscular Volume 82.3 fL (80.0-100.0); Nucleated Red Blood Cells % 0.0 %
[2024-11-03 06:45] LABS: Chloride 100 mmol/L (98-107); Potassium 4.0 mmol/L (3.5-5.1); Sodium 138 mmol/L (136-145)
[2024-11-03 06:46] LABS: Anion Gap 8 (5-15); Carbon Dioxide 30 mmol/L (20-31)
[2024-11-03 06:47] LABS: Calcium 7.8 mg/dL (8.7-10.4)
[2024-11-03 06:51] LABS: BUN/Creatinine Ratio 11.9 (10.0-20.0); Blood Urea Nitrogen 13 mg/dL (9-23); Glucose 214 mg/dL (74-106)
--- NOTE | 2024-11-03 16:31 | DVHPN2 ---
Progress Note Date Seen: Nov 03, 2024 Resident Creating Document: NICOLETTE ROSADO RESIDENT Medical Necessity Reason Pt with a Central, PICC or Fol: Yes The following are medically ne: Central Line, Kan Catheter Subjective Review of Systems Patient seen and examined at bedside 100-150 cc mucoid watery rectal tube output Discontinued TPN Cleared swallow evaluation for thickened liquids/pureed diet Objective vital signs Vital Sign Date Time Temp Pulse Resp B/P (MAP) Pulse Ox O2 Delivery O2 Flow Rate FiO2 11/03/24 13:00 97.7 100 18 127/82 (97) 96 97.7 11/03/24 10:20 21 11/03/24 08:00 Nasal Cannula* 2 Total Intake and Output 11/02/24 11/02/24 11/03/24 15:00 23:00 07:00 Intake Total 1400 ml 300 ml Output Total 1350 ml 450 ml Balance 50 ml -150 ml medications Current Medications Medications Dose Ordered Sig/Dion Route Start Time Stop Time Status Last Admin Dose Admin Diagnostic Test (Pha) 1 strip Q6HR 10/11/24 00:00 11/03/24 12:29 1 STRIP Insulin Human Regular FOLLOW SLIDING SCALE Q6HR SC 10/11/24 00:00 11/03/24 12:28 8 UNITS Dextrose 50 ml UD IV 10/10/24 22:00 Amino Acids 0 ml @ 0 mls/hr PER PHARMACY IV 10/10/24 19:00 UNV Pantoprazole Sodium 40 mg DAILY IV 10/21/24 08:30 11/03/24 08:59 40 MG Ondansetron HCl 4 mg Q4HPRN PRN IV 10/24/24 02:00 10/24/24 20:08 4 MG Enoxaparin Sodium 40 mg DAILY SC 10/24/24 10:00 11/03/24 08:59 40 MG Aspirin 300 mg DAILY [place] 10/25/24 10:00 Haloperidol Lactate 5 mg Q8HP PRN IV 10/27/24 11:45 10/31/24 01:42 5 MG Vancomycin HCl 0 ml @ 0 mls/hr UD IV 10/27/24 20:00 Amino Acids/ Electrolytes/ Dextrose 1,000 ml @ 41 mls/hr DAILY@2200 IV 10/28/24 22:00 Cancel Enteral Nutritional Formula 1,000 ml 30ML/HR GT 10/29/24 18:15 Ceftriaxone Sodium/Dextrose 50 ml @ 50 mls/hr DAILY IV 10/31/24 18:00 11/03/24 12:37 50 MLS/HR Acetaminophen 500 mg Q12H PRN IV 11/02/24 16:00 11/09/24 16:00 Vancomycin HCl 250 ml @ 200 mls/hr Q12H IV 11/02/24 20:00 11/03/24 08:59 200 MLS/HR Albuterol 2.5 mg Q6HWA [facility] 11/02/24 18:00 11/03/24 11:14 2.5 MG Ipratropium [place] 0.5 mg Q6HWA [facility] 11/02/24 18:00 11/03/24 11:14 0.5 MG Examination General Appearance: Alert, Oriented X1, noncooperative, No acute distress HEENT: Atraumatic, PERRLA, EOMI, Mucous membrane moist/pink Respiratory: Clear to auscultation, Normal air movement Cardiovascular: Regular rate, Normal S1, Normal S2, No murmurs, no chest wall tenderness Abdominal: Normal bowel sounds, Soft, No tenderness, No hepatospenomegaly, No masses Extremities: Mobilization of limbs cannot be evaluated. Skin is dry and warm. bilateral pedal edema +, S/P rt toe debridement and covered with dressing. Neuro: Strength at 5/5 X4 ext, Normal tone, Sensation intact, Cranial nerves 3- 12 NL, Reflexes 2+ Psych/Mental Status: Could not be assessed. laboratory and microbiology Laboratory Tests 11/03/24 05:14 Test 11/03/24 05:14 Range/Units Serum Glucose 214 H 74-106 mg/dL Microbiology Date/Time Source Procedure Growth Status 10/28/24 18:40 Blood Blood Culture - Final NO GROWTH AFTER 5 DAYS OF INCUBATION. Complete 10/27/24 19:53 Sputum Gram Stain - Final Complete 10/27/24 19:53 Respiratory Culture - Final Presumptive Hellen albicans Complete 10/16/24 17:40 Catheter Tip Aerobic Culture - Final Complete 10/16/24 09:39 Penis Aerobic Culture - Final Methicillin Resistant S.aureus Presumptive Hellen tropicalis Complete 10/14/24 22:10 Voided Urine Urine Culture - Final Presumptive Hellen tropicalis Complete Labs and/or images reviewed: Labs reviewed by me, Image(s) reviewed by me Problem List/Assessment/Plan Problem List/Assessment/Plan Anemia, possibly related to chronic disease with MCV 86.5 JAYLEEN likely VMN on CKD Acute hypoxic respiratory failure, on mechanical ventilation. Plans to extubate today Proctitis MRSA bacteremia Septic emboli due to above Acute left MCA stroke Infective endocarditis with mitral valve vegetations acute complicated cystitis psoas abscess? Sepsis Ruled out ileus Plan: Consider limiting blood draws Hold lactulose if diarrhea continues IV iron H&H stable today Continue conservative management, observation Stool occult blood negative IV Protonix b.i.d. Continue antibiotics Discharge planning Thank you so much for the opportunity to consult on your patient. GI team will follow the patient. In case of any questions or concerns please feel free to reach out. Plan discussed with Dr. Saunders Plan discussed with: Other (RN) Dietary Evaluation Review Comments: 1) Add cardiac restriction to 60g CCHO diet 2) Initiate Glucerna qd. Encourage optimal PO intake 3) Follow-up with urology and surgery 4) Follow-up with social insurance adviser r/t methamphetamine abuse 5) Continue to monitor I&O, labs, and skin integrity Expected Outcomes/Goals: 1) appetite and labs to improve 2) wound to improve 3) f/u in 3-5 days NICOLETTE ROSADO RESIDENT Nov 03, 2024 16:31
--- NOTE | 2024-11-03 17:20 | DVHPNRES ---
Progress Note Date Seen: Nov 03, 2024 Resident Creating Document: AIME RIVERA RESIDENT Has the PT tested + for MRSA If YES, has PT been informed?: No Medical Necessity Reason Pt with a Central, PICC or Fol: Yes The following are medically ne: Central Line, Kan Catheter Subjective Review of Systems This is a 39-year-old male with a complex medical history including insulin- dependent diabetes mellitus, GERD, bipolar disorder, schizophrenia, chronic diabetic ulcers, dyslipidemia, MRSA urinary infection, BPH, and methamphetamine abuse presented to [facility] on 10/02/2024 with generalized weakness, fever, and abdominal discomfort. He was intubated and chemically sedated for sepsis and persistent MRSA bacteremia, requiring low-dose vasopressor support. Imaging revealed a pelvic abscess and urinalysis suggested a UTI. Despite treatment, blood cultures remained positive for MRSA through 10/09. Cardiology was consulted for possible subacute endocarditis, TIM was done showing vegetation of the mitral valve consistent with bacterial endocarditis. ECG showed sinus tachycardia, inflammatory markers were elevated, and infectious workup for HIV, hepatitis B/C, and syphilis was negative. Recurrent MRSA bacteremia with infective endocarditis with most likely source of intrapelvic collection with foci of air at the left psoas muscle with erosive changes at the left anterior sacroiliac joint concerning for acute osteomyelitis/septic arthritis with left psoas muscle abscess. Status post ceftriaxone, linezolid, metronidazole, vancomycin, was change to daptomycin and ceftaroline on respectively 10/12/2024 and 10/13/2024. Afterwards on 10/27/2024 both ceftaroline and daptomycin were stopped and the patient was started on vancomycin and Zosyn. On 10/31/2024 Zosyn was stopped and was switched to ceftriaxone IV. Spoke regarding management with primary team which stated that the patient is going for home hospice today. Review of system unable to obtain due to patient's current status. Objective vital signs Vital Sign Date Time Temp Pulse Resp B/P (MAP) Pulse Ox O2 Delivery O2 Flow Rate FiO2 11/03/24 16:36 98.0 107 18 133/90 (104) 94 98.0 11/03/24 10:20 21 11/03/24 08:00 Nasal Cannula* 2 Total Intake and Output 11/02/24 11/02/24 11/03/24 15:00 23:00 07:00 Intake Total 1400 ml 300 ml Output Total 1350 ml 450 ml Balance 50 ml -150 ml medications Current Medications Medications Dose Ordered Sig/Dion Route Start Time Stop Time Status Last Admin Dose Admin Diagnostic Test (Pha) 1 strip Q6HR 10/11/24 00:00 11/03/24 12:29 1 STRIP Insulin Human Regular FOLLOW SLIDING SCALE Q6HR SC 10/11/24 00:00 11/03/24 12:28 8 UNITS Dextrose 50 ml UD IV 10/10/24 22:00 Amino Acids 0 ml @ 0 mls/hr PER PHARMACY IV 10/10/24 19:00 UNV Pantoprazole Sodium 40 mg DAILY IV 10/21/24 08:30 11/03/24 08:59 40 MG Ondansetron HCl 4 mg Q4HPRN PRN IV 10/24/24 02:00 10/24/24 20:08 4 MG Enoxaparin Sodium 40 mg DAILY SC 10/24/24 10:00 11/03/24 08:59 40 MG Aspirin 300 mg DAILY AL 10/25/24 10:00 Haloperidol Lactate 5 mg Q8HP PRN IV 10/27/24 11:45 10/31/24 01:42 5 MG Vancomycin HCl 0 ml @ 0 mls/hr UD IV 10/27/24 20:00 Amino Acids/ Electrolytes/ Dextrose 1,000 ml @ 41 mls/hr DAILY@2200 IV 10/28/24 22:00 Cancel Enteral Nutritional Formula 1,000 ml 30ML/HR GT 10/29/24 18:15 Ceftriaxone Sodium/Dextrose 50 ml @ 50 mls/hr DAILY IV 10/31/24 18:00 11/03/24 12:37 50 MLS/HR Acetaminophen 500 mg Q12H PRN IV 11/02/24 16:00 11/09/24 16:00 Vancomycin HCl 250 ml @ 200 mls/hr Q12H IV 11/02/24 20:00 11/03/24 08:59 200 MLS/HR Albuterol 2.5 mg Q6HWA [facility] 11/02/24 18:00 11/03/24 11:14 2.5 MG Ipratropium Wilson 0.5 mg Q6HWA [facility] 11/02/24 18:00 11/03/24 11:14 0.5 MG Examination Physical Examination General: Patient is nonverbal, only able to communicate with a yes/no. HEENT: Normocephalic, atraumatic, moist mucous membranes Respiratory/pulmonary: Clear lungs bilaterally, no associated crackles or wheezes. Cardiovascular: Normal heart sounds S1 and S2 with no associated murmurs Abdomen: Abdomen nondistended, there is no pain to palpation in any of the abdominal quadrants, no palpable masses. Extremities: There is no peripheral edema present at the lower extremities. Skin: No rashes or pruritus, there is no sacral edema present at this time. Neurological: Patient is nonverbal, unable to communicate properly. Unable to move lower extremities, slightly move bilateral upper extremities. laboratory and microbiology Laboratory Tests 11/03/24 05:14 Test 11/03/24 05:14 Range/Units Serum Glucose 214 H 74-106 mg/dL Microbiology Date/Time Source Procedure Growth Status 10/28/24 18:40 Blood Blood Culture - Final NO GROWTH AFTER 5 DAYS OF INCUBATION. Complete 10/27/24 19:53 Sputum Gram Stain - Final Complete 10/27/24 19:53 Respiratory Culture - Final Presumptive Hellen albicans Complete 10/16/24 17:40 Catheter Tip Aerobic Culture - Final Complete 10/16/24 09:39 Penis Aerobic Culture - Final Methicillin Resistant S.aureus Presumptive Hellen tropicalis Complete 10/14/24 22:10 Voided Urine Urine Culture - Final Presumptive Hellen tropicalis Complete Problem List/Assessment/Plan Problem List/Assessment/Plan Assessment/Plan Acute metabolic encephalopathy secondary to ischemic stroke/sepsis Possible septic emboli due to persistent MRSA bacteremia with neurologic sequelae Acute infective endocarditis of mitral valve Severe mitral regurgitation, likely due to infective endocarditis Possible pulmonary edema due to MR Acute hypoxic respiratory failure, likely due to pneumonia Left-sided pleural effusion Possible aspiration pneumonia Possible proctitis JAYLEEN likely due to VMN/ vancomycin toxicity, resolved Complicated UTI, due to MRSA Uncontrolled diabetes type 2 Diabetic foot ulcer, status post I&D Severe anemia, normocytic normochromic, status post 2 PRBC transfusion Persistent MRSA bacteremia Infective endocarditis of mitral valve Infected diabetic foot ulcer Complicated UTI Possible proctitis Possible left psoas muscle abscess Possible sacroiliitis Plan -while patient in the hospital continue IV antibiotics, currently on vancomycin and ceftriaxone -CT of the abdomen and pelvis revealed possible left psoas muscle abscess -brain MRI showed Large area of diffusion restriction of the left posterior temporal lobe and left parietal lobe. there were Small areas of punctate infarction along the right posterior frontal lobe to parietal lobe. Imaging pattern may be compatible with embolic phenomenon. -Clinical status/ neurologicwise apparently slightly improving but patient is non verbal unable to communicate. -recommend CT of the head and abdomen and pelvis with contrast. Goals of care discussed with medical and nursing staff, Plan discussed with Dr. Solano Plan discussed with: Other Dietary Evaluation Review Comments: 1) Add cardiac restriction to 60g CCHO diet 2) Initiate Glucerna qd. Encourage optimal PO intake 3) Follow-up with urology and surgery 4) Follow-up with secondary social studies teacher r/t methamphetamine abuse 5) Continue to monitor I&O, labs, and skin integrity Expected Outcomes/Goals: 1) appetite and labs to improve 2) wound to improve 3) f/u in 3-5 days AIME RIVERA RESIDENT Nov 03, 2024 17:20
[2024-11-03] MEDS: MORPHINE SULFATE 4 MG/ML SYR/VIAL IV ONE (17:50)
[2024-11-03] MEDS: HALOPERIDOL LACTATE 5 MG/ML INJ VIAL IM ONE (18:20)
--- NOTE | 2024-11-03 20:01 | DVHDSRES ---
Discharge Summary Date of Admission Resident Creating Document: AIME RIVERA RESIDENT Oct 02, 2024 at 23:31 Date of Discharge: Nov 03, 2024 Labs/Diagnostic Data: Laboratory Results Test 11/03/24 05:14 11/02/24 05:24 10/31/24 08:05 10/31/24 07:40 White Blood Count 5.9 10^3/uL (4.4-10.8) Red Blood Count 2.88 10^6/uL (4.5-5.90) Hemoglobin 8.1 g/dL (13.5-17.5) Hematocrit 23.7 % (41.0-53.0) Mean Corpuscular Volume 82.3 fL (80.0-100.0) Mean Corpuscular Hemoglobin 28.2 pg (28.0-32.0) Mean Corpuscular Hemoglobin Concent 34.2 g/dL (32.0-36.0) Red Cell Distribution Width 17.7 % (11.8-14.3) Platelet Count 195 10^3/uL (140-450) Mean Platelet Volume 7.8 fL (6.9-10.8) Neutrophils (%) (Auto) 68.1 % (37.0-80.0) Lymphocytes (%) (Auto) 16.8 % (10.0-50.0) Monocytes (%) (Auto) 11.4 % (0.0-12.0) Eosinophils (%) (Auto) 3.2 % (0.0-7.0) Basophils (%) (Auto) 0.5 % (0.0-2.0) Neutrophils # (Auto) 4.0 10 ^3/uL (1.6-8.6) Lymphocytes # (Auto) 1.0 10 ^3/uL (0.4-5.4) Monocytes # (Auto) 0.7 10 ^3/uL (0-1.3) Eosinophils # (Auto) 0.2 10 ^3/uL (0-0.8) Basophils # (Auto) 0 10 ^3/uL (0-0.2) Nucleated Red Blood Cells 0.0 % Sodium Level 138 mmol/L (136-145) Potassium Level 4.0 mmol/L (3.5-5.1) Chloride Level 100 mmol/L (98-107) Carbon Dioxide Level 30 mmol/L (20-31) Anion Gap 8 (5-15) Blood Urea Nitrogen 13 mg/dL (9-23) Creatinine 1.09 mg/dL (0.700-1.30) Glomerular Filtration Rate Calc 88 mL/min (>90) BUN/Creatinine Ratio 11.9 (10.0-20.0) Serum Glucose 214 mg/dL (74-106) Calcium Level 7.8 mg/dL (8.7-10.4) Random Vancomycin Level 13.3 ug/mL (5-10) Vancomycin Level Trough 22.4 ug/mL (5-10) Blood Gas Specimen Type Arterial Blood Gas Sample Site Right radial Blood Gas Patient Temperature 37.0 Arterial Blood Date Drawn [id number] Arterial Blood pH 7.562 (7.350-7.450) Arterial Blood Partial Pressure CO2 31.0 mmHg (35.0-48.0) Arterial Blood Partial Pressure O2 82.2 mmHg (83.0-108.0) Arterial Blood HCO3 27.3 mmol/L (21.0-28.0) Arterial Blood Oxygen Saturation 95.6 % (94.0-98.0) Arterial Blood Base Excess 5.0 mmol/L (-2.0-3.0) Arterial Blood Oxyhemoglobin 95.2 % (94.0-98.0) Arterial Blood Carboxyhemoglobin 0.3 % (0.5-1.5) Arterial Blood Methemoglobin 0.1 % (0.0-1.5) Simone Test Yes Blood Gas Total Hemoglobin 8.60 g/dL (13.5-17.5) Blood Gas Liter Flow 3.00 Blood Gas Modality Nasal cannula FiO2 % 32.0 Blood Gas Critical Value Read Back yes Blood Gas Notified Whom jennifer rondon md Blood Gas Notified Time [id number] Blood Gas Notified By cattle driver t geovany Test 10/31/24 03:25 10/30/24 03:00 10/29/24 03:30 10/28/24 16:28 Total Bilirubin 0.3 mg/dL (0.2-1.0) Aspartate Amino Transferase (AST) 19 U/L (13-40) Alanine Aminotransferase (ALT) < 9 U/L (7-40) Alkaline Phosphatase 81 U/L (46-116) Total Protein 6.2 g/dL (5.7-8.2) Albumin 2.3 g/dL (3.2-4.8) Prothrombin Time 16.1 sec (9.3-11.8) Prothrombin Time INR 1.59 (0.9-1.15) Activated Partial Thromboplast Time 38.8 SEC (24.5-34.5) Magnesium Level 1.4 mg/dL (1.6-2.6) Phosphorus Level 2.4 mg/dL (2.4-5.1) Prealbumin 4.7 md/dL (10.0-40.0) Triglycerides Level 138 mg/dL (< 150) Ferritin 1471.2 ng/mL (22-322) Test 10/28/24 05:30 10/27/24 20:08 10/24/24 19:23 10/24/24 05:19 Creatine Kinase 39 U/L (46-171) B-Type Natriuretic Peptide 616.70 pg/mL (0-100) Lactic Acid Level 1.2 mmol/L (0.4-2.0) Venous Blood pH 7.499 (7.320-7.430) Venous Blood pCO2 at Patient Temp 37.5 mmHg (38.0-54.0) Venous Blood pO2 at Patient Temp < 36.5 mmHg (23.0-48.0) Venous Blood HCO3 28.5 mmol/L (22.0-29.0) Venous Blood Base Excess 5.2 mmol/L (-2.0-3.0) Test 10/24/24 02:23 10/23/24 11:47 10/23/24 07:26 10/21/24 03:30 Blood Gas Set Respiration Rate 28.0 Blood Gas Pressure Support 8 Blood Gas PEEP or CPAP 5.0 Blood Gas Tidal Volume 500.0 Stool Occult Blood Negative (Negative) Stool Occult Blood Sample #3 (Negative) Test 10/16/24 15:10 10/14/24 22:10 10/14/24 10:42 10/14/24 05:04 Iron Level 36 ug/dL (65-175) Total Iron Binding Capacity 110 ug/dL (250-425) Percent Iron Saturation 32.7 % (20-55) Urine Color Light-orange (Yellow) Urine Clarity Ex.turbid (Clear) Urine pH 5.0 (5.0-9.0) Urine Specific [place] 1.017 (1.001-1.035) Urine Protein 1+ (Negative) Urine Ketones Negative (Negative) Urine Blood 2+ /uL (Negative) Urine Nitrite Negative (Negative) Urine Bilirubin Negative (Negative) Urine Urobilinogen Normal mg/dL (Negative) Urine Leukocyte Esterase 3+ /uL (Negative) Urine RBC 416 /hpf (0 - 3) Urine Microscopic WBC 354 /HPF (0-3) Urine Squamous Epithelial Cells None seen /hpf (<5) Urine Bacteria Mod /hpf (None Seen) Urine Hyaline Casts Many /lpf (0 - 2) Urine Mucus Few (None Seen) Urine Yeast with Hyphae Present /hpf Urine Yeast (Budding) Loaded /hpf (None Seen) Urine Creatinine 168.66 mg/dL (30.0-125.0) Urine Protein/Creatinine Ratio 0.94 Urine Glucose Normal mg/dL (Normal) Urine Total Protein 158.7 mg/dL (1-14) Chlamydia trachomatis (LESLY) Negative (Negative) Neisseria gonorrhoeae (LESLY) Negative (Negative) Urine Sodium 21 mmol/L (40-220) Hemoglobin A1c 13.2 % A1C (<5.7) Test 10/12/24 14:00 10/07/24 13:01 10/07/24 09:00 10/05/24 18:40 Complement C3 67 mg/dL (82-167) Complement C4 20 mg/dL (12-38) HIV (1&2) Antibody Negative (Negative) Erythrocyte Sedimentation Rate 102 mm/hr (0-20) C-Reactive Protein High Sensitivity 19.31 mg/dL (<1.0) Cholesterol Level 87 mg/dL (< 200) LDL Cholesterol 39 mg/dL (< 100) HDL Cholesterol 9 mg/dL (40-59) Treponema pallidum Antibody Non-reactive (Negative) Differential Total Cells Counted 100.0 (100) Neutrophils % (Manual) 73 (37.0-80.0) Band Neutrophils % (Manual) 5 Lymphocytes % (Manual) 13 (10.0-50.0) Monocytes % (Manual) 8 (0-12) Eosinophils % (Manual) 0 (0-7) Basophils % (Manual) 0 (0.0-2.0) Metamyelocytes % (manual) 0 Myelocytes % (Manual) 0 Promyelocytes % (Manual) 0 Blast Cells % (Manual) 0 Reactive Lymphocytes 1 Platelet Estimate Decreased Ammonia < 10 umol/L (11-32) Test 10/05/24 15:02 10/05/24 11:48 10/05/24 02:47 10/03/24 04:25 Urine Opiates Screen Neg (NEGATIVE) Urine Fentanyl Screen Neg (NEGATIVE) Urine Barbiturates Screen Neg (NEGATIVE) Urine Phencyclidine Screen Neg (NEGATIVE) Urine Amphetamines Screen Neg (NEGATIVE) Urine Benzodiazepines Screen Neg (NEGATIVE) Urine Cocaine Screen Neg (NEGATIVE) Urine Cannabinoids Screen Neg (NEGATIVE) POC Glucose 226 mg/dl (70-106) Anisocytosis (manual) Slight Thyroid Stimulating Hormone (TSH) 1.36 uIU/mL (0.55-4.78) Hepatitis B Surface Antigen Negative (Negative) Hepatitis C Antibody Negative (Negative) Other Laboratory Tests 11/03/24 05:14 Brief Hx & Hospital Course: HISTORY OF PRESENT ILLNESS: 39-year-old male with past medical history of diabetes (uncontrolled), chronic diabetic ulcer, bipolar and methamphetamine use disorder, came to the hospital due to fever, generalized weakness and abdominal pain admitted on 10/02/2024, BRIEF HOSPITAL COURSE: Patient was admitted to the hospital due to fever, blood culture showed MRSA positive and subsequently the patient was started on IV vancomycin. TIM 10/14/24 showed, Mitral Valve anterior leaflet has 0. 8 cm vegetation with stalk . 0.8 x 0.4 cm, no significant MR or abscess noted, LV size and function normal (EF 60%) and due to JAYLEEN, antibiotic were shifted to daptomycin and ceftaroline. Despite IV antibiotic, the patient had multiple MRSA positive blood culture. Due to progressive altered mental status, the patient was intubated. Brain MRI on 10/15/2024 showed, Large area of diffusion restriction of the left posterior temporal lobe, left parietal lobe, small areas of punctate infarction along the right posterior frontal lobe to parietal lobe. Imaging pattern may be compatible with embolic phenomenon, neurology consulted recommended aspirin and haloperidol p.r.n. for agitation. Despite IV antibiotic treatment, the patient's status gradually worsened, daily chest x-ray was showing progressive worsening of bilateral infiltration. Echo repeated on 10/29, showed severe mitral regurgitation with a EF 60%. Due to pulmonary edema, the patient was started on Bumex drip 0.5 milligram/hour. For possible pneumonia, Infectious Disease was consulted, recommended vancomycin and Zosyn. CT scan from 09/24/2024 showed, evidence of left sacroiliitis with gas and fluid extending into left pelvic muscles likely representing abscess. Suboptimal characterization due to lack of contrast. Bilateral inguinal adenopathy is likely reactive, Radiology recommended, planned for drainage once patients get more stabilized. Despite aggressive treatment with IV antibiotic, IV diuretic, patient's status was worsening. Due to severe mitral regurgitation which was complicated due to infective endocarditis the patient required surgery for mitral repair, but considering the patient's clinical status, multiple commodities and poor prognosis detailed discussion performed with patient's mother on multiple occasion. Finally, mother decided to take the patient for home hospice care. O n 11/03, the patient discharged home with home hospice care. FINAL DIAGNOSIS: Acute metabolic encephalopathy secondary to ischemic stroke/sepsis Possible septic emboli due to persistent MRSA bacteremia History of Bipolar disorder Acute infective endocarditis of mitral valve Possible diastolic dysfunction/diastolic heart failure Severe mitral regurgitation, likely due to infective endocarditis Possible pulmonary edema due to MR Acute hypoxic respiratory failure, likely due to pneumonia Left-sided pleural effusion Possible aspiration pneumonia Possible proctitis Possible gastroenteritis Ascites JAYLEEN likely due to VMN/ vancomycin toxicity, resolved Complicated UTI, due to MRSA Urinary retention Uncontrolled diabetes type 2 with HGB A1c 13.2 Diabetic foot ulcer, status post I&D on 10/15 Severe protein malnutrition Hypophosphatemia Hyperphosphatemia Hypomagnesemia Persistent hypokalemia Hypernatremia, resolved Severe anemia, normocytic normochromic, status post 2 PRBC transfusion Precipitous hemoglobin dropped Persistent MRSA bacteremia Infective endocarditis of mitral valve Infected diabetic foot ulcer Complicated UTI Possible proctitis Psoas muscle abscess Possible sacroiliitis Condition at Discharge: Good Final Diagnosis/Problems List Infective endocarditis Discharge Disposition: Hospice - Home Discharge Instruct/Medications Diet: Regular Activity: No Restrictions, As Tolerated Medications: Per hospice protocol Scheduled Atorvastatin Calcium (Lipitor), 1 TAB PO QPM, (Reported) Empagliflozin (Jardiance), 1 TAB PO DAILY, (Reported) Insulin Glargine (Lantus Solostar), 20 UNIT SC QPM, (Reported) Metformin Hydrochloride (Metformin Hcl), 1 TAB PO BID, (Reported) Semaglutide (Ozempic), 2 MG SC QWEEKLY, (Reported) Discharge Statement: "Patient was advised to return to the ER or call 911 if any headaches, dizziness, shortness of breath, chest pain, abdominal pain, bleeding, fevers, or worsening of medical condition. Patient was counseled about treatment plan, medications, possible side effects, patientverbalized understanding. All questions were answered to the best of my ability. This discharge took greater then 30 minutes in planning, reviewing documentation, counseling the patient, and discussing with other team members." ASSESSMENT ASSESSMENT Assessment Infective endocarditis ERNIE RONDON Nov 03, 2024 20:01
== END 2024-11-03 21:45 | disposition hospice, home (50) | DRG 853 ==
LOC: ER 20:27 → EDBD 20:27 → OVERFLOW 23:31 → EDUNIT# 23:31 → TELE-WESTW 10-03 14:17 → TELE-EAST 10-04 15:06 → ICU WEST 10-10 16:40 → TELE-CENTR 10-31 17:04
PROVIDERS: ADMIT Internal Medicine; ATTEND Internal Medicine
PROC: 02HV33Z Insertion of Infusion Device into Superior Vena Cava, Percutaneous Approach (ICD-10-PCS; 2024-10-10)
PROC: 5A1955Z Respiratory Ventilation, Greater than 96 Consecutive Hours (ICD-10-PCS; 2024-10-10)
PROC: 0BH17EZ Insertion of Endotracheal Airway into Trachea, Via Natural or Artificial Opening (ICD-10-PCS; 2024-10-10)
PROC: 30233N1 Transfusion of Nonautologous Red Blood Cells into Peripheral Vein, Percutaneous Approach (ICD-10-PCS; 2024-10-14)
PROC: B246ZZ4 Ultrasonography of Right and Left Heart, Transesophageal (ICD-10-PCS; 2024-10-14)
PROC: 5A2204Z Restoration of Cardiac Rhythm, Single (ICD-10-PCS; 2024-10-14)
PROC: 0QBQ0ZX Excision of Right Toe Phalanx, Open Approach, Diagnostic (ICD-10-PCS; principal; 2024-10-15 11:20)
PROC: 5A0935A Assistance with Respiratory Ventilation, Less than 24 Consecutive Hours, High Flow/Velocity Cannula (ICD-10-PCS; 2024-10-26)
PROC: 5A0945A Assistance with Respiratory Ventilation, 24-96 Consecutive Hours, High Flow/Velocity Cannula (ICD-10-PCS; 2024-10-27)
PROC: 5A0935A Assistance with Respiratory Ventilation, Less than 24 Consecutive Hours, High Flow/Velocity Cannula (ICD-10-PCS; 2024-10-30)
PROC: 5A0935A Assistance with Respiratory Ventilation, Less than 24 Consecutive Hours, High Flow/Velocity Cannula (ICD-10-PCS; 2024-10-31)
DX: A41.02 Sepsis due to Methicillin resistant Staphylococcus aureus (principal); G06.2 Extradural and subdural abscess, unspecified; G92.8 Other toxic encephalopathy; J96.01 Acute respiratory failure with hypoxia; I33.0 Acute and subacute infective endocarditis; I63.412 Cerebral infarction due to embolism of left middle cerebral artery; R65.21 Severe sepsis with septic shock; K68.12 Psoas muscle abscess; J18.9 Pneumonia, unspecified organism; J69.0 Pneumonitis due to inhalation of food and vomit; E87.1 Hypo-osmolality and hyponatremia; N41.2 Abscess of prostate; E44.0 Moderate protein-calorie malnutrition; I76 Septic arterial embolism; J98.11 Atelectasis; N30.00 Acute cystitis without hematuria; I50.30 Unspecified diastolic (congestive) heart failure; M86.8X7 Other osteomyelitis, ankle and foot; M00.9 Pyogenic arthritis, unspecified; R18.8 Other ascites; J90 Pleural effusion, not elsewhere classified; N17.9 Acute kidney failure, unspecified; K52.9 Noninfective gastroenteritis and colitis, unspecified; E88.09 Other disorders of plasma-protein metabolism, not elsewhere classified; E11.69 Type 2 diabetes mellitus with other specified complication; F15.10 Other stimulant abuse, uncomplicated; F31.9 Bipolar disorder, unspecified; T36.8X5A Adverse effect of other systemic antibiotics, initial encounter; E11.621 Type 2 diabetes mellitus with foot ulcer; M60.9 Myositis, unspecified; D64.9 Anemia, unspecified; E83.42 Hypomagnesemia; E83.39 Other disorders of phosphorus metabolism; K62.89 Other specified diseases of anus and rectum; L97.519 Non-pressure chronic ulcer of other part of right foot with unspecified severity; K21.9 Gastro-esophageal reflux disease without esophagitis; E78.5 Hyperlipidemia, unspecified; M46.1 Sacroiliitis, not elsewhere classified; N40.1 Benign prostatic hyperplasia with lower urinary tract symptoms; R33.9 Retention of urine, unspecified; E87.6 Hypokalemia; I34.0 Nonrheumatic mitral (valve) insufficiency; E11.51 Type 2 diabetes mellitus with diabetic peripheral angiopathy without gangrene; N14.19 Nephropathy induced by other drugs, medicaments and biological substances; I11.0 Hypertensive heart disease with heart failure; F20.9 Schizophrenia, unspecified; R29.720 NIHSS score 20; Z87.891 Personal history of nicotine dependence; Y92.89 Other specified places as the place of occurrence of the external cause; Z91.199 Patient's noncompliance with other medical treatment and regimen due to unspecified reason; Z79.899 Other long term (current) drug therapy; Z83.3 Family history of diabetes mellitus; Z79.84 Long term (current) use of oral hypoglycemic drugs; Z79.82 Long term (current) use of aspirin; Z79.4 Long term (current) use of insulin; Z79.02 Long term (current) use of antithrombotics/antiplatelets; Z78.1 Physical restraint status; Z86.73 Personal history of transient ischemic attack (TIA), and cerebral infarction without residual deficits; Z68.22 Body mass index [BMI] 22.0-22.9, adult
CPT/HCPCS: 31720; 36415; 36600; 70450; 70496; 70498; 70551; 71045; 73700; 74018; 74176; 74177; 76604; 80048; 80053; 80061; 80202; 80307; 81001; 82040; 82140; 82270; 82550; 82565; 82570; 82728; 82805; 82962; 83036; 83540; 83550; 83605; 83735; 83880; 84100; 84132; 84156; 84300; 84443; 84478; 85007; 85025; 85027; 85610; 85652; 85730; 86141; 86160; 86703; 86780; 86803; 86850; 86900; 86901; 86920; 87040; 87070; 87075; 87077; 87081; 87086; 87088; 87147; 87186; 87205; 87340; 92610; 93005; 93306; 93312; 93925; 93970; 93971; 94002; 94003; 94640; 94667; 94668; 95819; 96360; 99291; G0378; J0131; J0712; J1756; J1815; J1885; J2003; J2248; J2250; J2405; J2470; J2543; J2704; J3480; J3490; J7060